=== PATIENT | male | born 1940 | race Caucasian/White ===

== ENCOUNTER 2018-01-20 09:23 | Day surgery (SDC) | payer MEDICARE, SELFPAY ==
--- NOTE | 2018-01-20 09:45 | HERN_PTH ---
PATIENT: TYE VAZQUEZ LOC: [facility] U#:[id number] AGE/SX: 77/M ROOM: RE01/20/[address]: Dr. Winsotn Sherwood MD : 1940 BED: DIS: 01/20/2018 SPEC #: [id number] RECD: 01/20/18 14:21 STATUS: TANNER MERARY #: [id number] CLAUDIA: 01/20/18 09:[address]: Winston Sherwood DEPT: SURGICAL PATHOLOGY RECD BY: Odalis Jarrell ENTERED: 01/20/18 15:14 SP TYPE: Hernia OTHR DR: Dr. Talon Bolaños MD Tissues: HERNIA Procedures: Surgery Specimen Level II HEADER OPERATION: Open, hernia, inguinal with mesh PRE-OP DIAGNOSIS: Right inguinal hernia TISSUE SUBMITTED: Hernia sac MICROSCOPIC DIAGNOSIS Right inguinal hernia, herniorrhaphy: Hernia sac with fibrosis and mild chronic inflammation. AM:laurie 4/10/18 MICROSCOPIC DESCRIPTION Slides are reviewed. GROSS DESCRIPTION Received in fixative is one container labeled with the patient's name and designated hernia sac. The specimen consists of an irregular piece of wood soft tissue measuring 5.5 x 1.5 x 0.3 cm. No mass lesion is identified. Adult Remedial Education Instructor sections are submitted in one cassette. / SJ:rg 01/20/18 TC:5 CPT: 78173
[2018-01-20 09:49] VITALS: BP 158/92; PULSE 61; RESP 16; TEMP 36.4; O2SAT 96; BMI 25.2
[2018-01-20] MEDS: Cefazolin 2 GM in 0.9% Normal Saline 100 ML IV (10:15)
[2018-01-20] MEDS: Bupivacaine Mpf 0.5% 30 ML VIAL (11:26)
--- NOTE | 2018-01-20 11:34 | PCM.DC.HER ---
Discharge Diet: Light diet - advance as tolerated Discharge Activity: Return to Normal Activity, May Drive - when you are no longer taking narcotic pain medications., May Shower - with the bandage in place 1-2 days after surgery. Lifting Restrictions: 20 pounds for 8 weeks. Additional Activity Instructions:: Climbing stairs is fine, walking is encouraged. Sitting in bed may be uncomfortable. Sitting up using your lateral muscles (sitting up sideways) is usually more comfortable. Do not drive, work heavy equipment of sign legal documents for 24 hours. If your hernia repair was an ingunial repair, you may have scrotal swelling, an ice pack and/or athletic support can provide more comfort. Pain medications may cause nausea, you should typically eat light foods as you take your pain medications. Pain medications may also cause constipation. If you have difficulty with this, discuss with your doctor. Call your doctor if your incision/area has: Continuous Slow Oozing, Sudden Increased Bleeding, Increased Pain/ Swelling, Increased Redness, Foul Smelling Discharge Call your doctor if you observe: Fever of 101 or Higher Suture Line Care: Avoid Pulling/Pushing, Avoid Pinching/Bending Additional Dressing/Incision Instructions:: Leave the operative bandage on for 2-3 days. When you remove the bandage, leave the steri-strips on place until your follow up appointment or they fall off. Allergies/Adverse Reactions: Allergies No Known Allergies Allergy (Verified 01/20/18 10:08) Medications to take at Discharge Amlodipine [Norvasc] 10 mg PO DAILY 05/13/17 Aspirin [Aspirin, Baby] 81 mg PO DAILY@0800 05/13/17 Atorvastatin Calcium [Lipitor] 10 mg PO QHS 05/13/17 Cyclobenzaprine [Flexeril] 5 mg PO BID PRN 05/13/17 Lisinopril 20 mg PO QHS 05/13/17 Lisinopril/Hydrochlorothiazide [Zestoretic 20/12.5 Tablet] 1 tab PO DAILY 05/13/17 Omeprazole 20 mg PO DAILY 05/13/17 traMADol [Ultram] 50 mg PO DAILY PRN 05/13/17 Metoprolol Tartrate [Lopressor (beta seda)] 50 mg PO BID #60 tablet 05/14/17 Potassium Chloride 20 meq PO DAILY #60 tablet.er 05/14/17 Vancomcyin 125 MG/ 5 ML Susp [Vancomycin 125mg/5mL Susp] 125 mg PO Q6 #200 ml 05/14/17 Oxycodone [Oxyir] 5 mg PO Q4H PRN PRN 7 Days #14 tab 01/20/18 The following prescriptions were given: Oxycodone [Oxyir] 5 mg PO Q4H PRN PRN 7 Days #14 tab PRN Reason: Pain Primary Care Physician: Talon Bolaños MD [Primary Care Provider] - Please Follow Up With: Winston Sherwood MD - [phone] When: Plan to have a follow up appointment in 7 days. Call to schedule.
--- NOTE | 2018-01-20 11:34 | PCM.OPRPT ---
Report of Operation Date of Procedure: 01/20/18 Pre-Operative Diagnosis: right inguinal hernia Post-Operative Diagnosis: right inguinal hernia - indirect Surgery/Procedure Performed:: right inguinal hernia repair with medium mesh plug sustainability specialist: None Type of Anesthesia:: MAC Anesthesiologist: Srini Maldonado - ASA2 Specimen's removed: hernia sac Estimated Blood Loss (mL): 15 Fluids Replaced: 800 Description of Procedure: The patient was brought to the operating suite. Sign in was performed verifying patient, site, procedure, position, and DVT prophylaxis with SCDs. Patient received 2 g Ancef antibiotic prophylaxis. Following induction of IV sedation, the patients right inguinal region was prepped and draped in the usual fashion. Timeout was performed verifying patient, site, position. Local anesthetic was injected at the site of the anterior superior iliac spine for a regional block. The 50-50 mixture of lidocaine and Marcaine was then injected along the planned course of the skin incision. A linear incision was made and dissection carried down to the external oblique aponeurosis. Traversing veins ligated with 3-0 Vicryl ties and divided. Local anesthetic was then injected into the inguinal canal. A clean scalpel blade was used to open the lower canal in the direction of the fibers and a Metzenbaum scissor was used to further dissect and open the canal. Care was taken to avoid injury to the ilioinguinal nerve. Following this, the spermatic cord was surrounded at the level of the pubic tubercle and brought up in the operative field with a Paco drain. Dissection was continued up to the internal ring clearing the cremasteric fibers. The patient was noted to have no direct inguinal hernia. Dissection of the cord was undertaken which demonstrated an indirect inguinal hernia with a relatively small hernia sac. The hernia sac was opened. There was no sliding component. Ligation of the hernia sac was undertaken. A medium Bard PerFix mesh plug was then placed into the internal ring and secured with interrupted 0 Prolene sutures. The mesh was secured using a Bard keyhole shaped mesh secured at the level of the pubic tubercle and run to the ilioinguinal ligament inferiorly using an 0 Prolene suture. Next an 0 Prolene suture was used to secure the mesh to the transversus arch. The tails of the mesh were placed around the spermatic cord to create a new internal ring and the tails closed with a running 0 Prolene suture. The spermatic cord and the ilioinguinal nerve returned to its anatomic position. The external oblique was closed with a running 3-0 Vicryl suture. Subcutaneous fat was closed with interrupted 3-0 Vicryl suture. Skin was closed with a running 4-0 Monocryl subcuticular sutures. Steri-Strips and bandages were applied. The patient was brought to recovery room in stable condition. Grafts/Implants Used: bard perfix medium plug patch [id number] ref [id number] exp 09/10/2022 - Admit VTE Documentation VTE Present on Admission: No VTE Mechan Device Prophylaxis: SCD's
[2018-01-20 11:37] VITALS: BP 123/75; BP 158/92; PULSE 53; RESP 16; TEMP 36.2; O2SAT 93
[2018-01-20 11:45] VITALS: BP 137/70; BP 158/92; PULSE 52; RESP 16; O2SAT 93
[2018-01-20 11:50] VITALS: BP 134/74; BP 158/92; PULSE 51; RESP 16; O2SAT 94
[2018-01-20 12:11] VITALS: BP 129/72; BP 158/92; PULSE 53; RESP 16; TEMP 36.1; O2SAT 93
[2018-01-20 12:48] VITALS: BP 158/92
== END 2018-01-20 13:07 | disposition home or self-care (01) ==
LOC: SDC 09:23 → AC 09:28
PROVIDERS: Family Provider Internal Medicine; PCP Internal Medicine; Visit Provider Surgery
PROC: (CPT 49505; principal; 2018-01-20 09:30)
DX: K40.90 Unilateral inguinal hernia, without obstruction or gangrene, not specified as recurrent (principal); M51.36 Other intervertebral disc degeneration, lumbar region; K21.9 Gastro-esophageal reflux disease without esophagitis; I10 Essential (primary) hypertension; E78.2 Mixed hyperlipidemia; Z87.19 Personal history of other diseases of the digestive system; Z85.46 Personal history of malignant neoplasm of prostate; Z79.82 Long term (current) use of aspirin; Z79.899 Other long term (current) drug therapy; F17.210 Nicotine dependence, cigarettes, uncomplicated
CPT/HCPCS: 49505; 88302; J7120; A4216; C1781

== ENCOUNTER 2018-04-28 10:00 | Outpatient (RCR) | payer MEDICARE, SELFPAY ==
--- NOTE | 2018-04-01 12:58 | HP.PTEVAL_ITS ---
Patient's Visit Information TYE VAZQUEZ is a 78 year old M referred to Physical Therapy by Out of Town Doctor with a diagnosis of Lumbar back pain with radiculopathy. Date of Evaluation: 04/01/18 Physical Therapist: Shawn Harley PT, - Visit Plan Frequency: 2x /Week Duration: 4 Weeks Plan: Start flexion based stretching, LE flexibility, progressive core strengthening starting in gravity reduced positions. Try manual traction. Modalities prn. - Subjective Subjective: Pt is a 78 y/o male referred for lumbar back pain with radiculopathy. Pt reports a long history of low back pain. He feels like his symptoms have worsened since he had a hernia repair on 01/20/18. Since then, he has had worsening R radicular symptoms. He has been using a SPC for the past three weeks. He describes is symptoms as a constant painful numbness from the lateral R knee to his toes. When he stands he immediately has increasing numbness and he notes posterior R thigh pain also. Sitting relieves his symptoms slightly. He had director critical care recently with no improvement. He had previous PT and injection last summer with no improvement. Denies surgical history to lumbar spine. He denies recent falls/trauma, weakness, and b/b incontinence. Aggrevating factors: standing, walking. Easing factors: sitting , rest. 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 - Pain low back Pain Intensity (Out of 10): 7 Pain Intensity Range: 10 R radicular Pain Intensity (Out of 10): 7 Pain Intensity Range: 10 - Objective OBSERVATION: sitting without distress, notable atrophy R LE in quadriceps and gastroc muscle bellies. GAIT: amb with SPC in L UE, R LE antalgic, decreased hip extension with terminal stance. NEURO: dermatomes diminished L3-SI R LE. Myotome impaired R L5 level. Unable to elicit R LE DTRs, L L3 DTR 2+. ROM: Lumbar flexion 75%, extension 50%, B LF 75%. R hip PROM WFL, L hip PROM mod impairment. STRENGTH: Gross R LE 4-/5, L LE 4+/5. FLEXIBILITY: Severe tightness B hamstrings. - Special Tests L/S Left Straight Leg Raise: Negative L/S Right Straight Leg Raise: Positive - Goals Goal 1:: Pt will report 25% improvement in function in the BENY. Goal Time Frame: 4-6 Weeks Goal 2:: Pt will report ability to ambulate 5 minutes without prescence of radicular symptoms. Goal Time Frame: 4-6 Weeks Goal 3:: Pt will demonstrate gross B LE strength of 4+/5 to improve strength with transfers. Goal Time Frame: 4-6 Weeks Goal 4:: Pt will be independent with HEP to sustain gains made in the clinic. Goal Time Frame: 4-6 Weeks - Rehabilitation Potential Physical Therapy Diagnosis: pt is a 78 y/o male with referral of lumbar back pain with radiculopathy. This has been worsening since a hernia repair in January of this year. He notes wornsening R LE radicular symptoms and weight bearing tolerance. Radicular symptoms appear to be following the L5 dermatome and he does exhibit myotomal weakness of this level as well. Due to his history of hernia surgery and immobility post-op, he likely has underlying trunk control impairment. He has activity restrictions that include decreased ambulation distance, standing tolerance, and difficulty sleeping. This affects his participation with work related tasks. His prognosis is fair for an ideal outcome based on his chronicity of symptoms and myotomal weakness. Pt would benefit from skilled PT to maximize function. Rehabilitation Potential: Fair - Anticipated Interventions Patient/Client Instruction: Educate patient on: Condition, Plan of Care For the Purpose of:: To decrease pain, To increase ROM, To improve muscle performance and motor function, To increase tolerance to activity/condition/ position, To improve ability of physical actions for home/community/work/leisure , To improve gait and locomotor functions, To reduce risk of recurrence, To improve self management Therapeutic Exercise to Include: Strength training, Endurance training, Balance training, Body mechanics, Postural training, Flexibilty training, Gait and locomotor training, Active ROM, Dynamic Lumbar Stabilization For the Purpose of:: To decrease pain, To increase ROM, To improve muscle performance and motor function, To improve ability to perform ADL's, To increase tolerance to activity/condition/position, To improve ability of physical actions for home/community/work/leisure, To improve gait and locomotor functions, To decrease soft tissue restriction, To increase flexibility/ROM, To improve endurance, To improve balance, To improve safety with gait, To improve self management TENS: Yes IF ES: Yes Other electric stimulation: Yes Cryotherapy (ice pack, ice massage): Yes Thermo therapy (hot pack): Yes Ultrasound (thermal/non thermal): Yes Pelvic traction supine: Yes For the Purpose of:: To decrease pain, To increase ROM, To improve muscle performance and motor function, To increase tolerance to activity/condition/ position, To improve ability of physical actions for home/community/work/leisure , To increase flexibility/ROM, To improve endurance Thank you for the opportunity to evaluate your patient. For Medicare and Medicare HMO plans, please review the plan of care and approve it. It will need to be FAXED BACK to us at [phone] for Medicare purposes. Please let me know if there are questions or concerns regarding this plan of care. Physician Signature: Date:
--- NOTE | 2018-04-28 10:29 | HP.PTDCSUM_ITS ---
HP - PT D/C Summary It has been my pleasure to treat TYE VAZQUEZ under orders from Out of Town Doctor, for the diagnosis of Lumbar back pain with radiculopathy for a total of 9 visit(s). Discharge Date: 04/28/18 Please see the following information for a summary of their discharge status. - Subjective Subjective: Doing about same. Pain is located in right lateral calf and foot. These symptoms impair walking and standing affects ADL'S - Pain low back Pain Intensity (Out of 10): 5 R radicular Pain Intensity (Out of 10): 5 - Overall Improvement % Improvement: 25 - Objective Objective/Function: POSTURE: mild foward posture. GAIT: ambulates with mild foward posture ,cane decrease stance time right leg. NEURO: C/O parathesia/ tingling right leg .reflexes diminshed. MMT: quads/hams 4-/5,hip flexion 3+/5 pain on right. LUMBAR ROM: flexion mod loss pain ,extension min loss - Goals Goal 1:: Pt will report 25% improvement in function in the BENY. Goal Progress: Progressing Goal 2:: Pt will report ability to ambulate 5 minutes without prescence of radicular symptoms. Goal Progress: Progressing Goal 3:: Pt will demonstrate gross B LE strength of 4+/5 to improve strength with transfers. Goal Progress: Progressing Goal 4:: Pt will be independent with HEP to sustain gains made in the clinic. Goal Progress: Progressing - Plan Plan: D/C recommend MRI - D/C Information Discharge Comments: RTD ..RECOMMEND MRI If there are questions or concerns regarding this patient's physical therapy, please feel free to call me at [phone]. Thank you for the referral of this patient. Sincerely, Shawn Harley, PT,
== END 2018-04-28 19:00 | disposition home or self-care (01) ==
LOC: PT 10:00
PROVIDERS: Family Provider Internal Medicine; PCP Internal Medicine
DX: M54.17 Radiculopathy, lumbosacral region (principal)
CPT/HCPCS: 97014; 97035; 97110; 97163; 97530; G0283

== ENCOUNTER 2019-05-29 22:38 | Emergency (ER) | payer MEDICARE, SELFPAY ==
[2019-05-29 22:39] VITALS: BP 155/81; PULSE 79; RESP 19; TEMP 36.5; O2SAT 94; BMI 24.3
--- NOTE | 2019-05-29 23:10 | RAD_ITS ---
HISTORY: MULTIPLE PUNCTURE WOUNDS TO 1ST AND 2ND DIGITS AND 1ST METACARPAL AREA FROM DOG BITE ADDITIONAL HISTORY: None provided. COMPARISON: None TECHNIQUE: Right hand 3 views Number of images including paperwork: 3 FINDINGS: BONES: No acute fracture. Mineralization appears decreased. JOINTS: Moderate radial carpal joint space narrowing. Mild widening of the scapholunate interval measuring 3 mm. Severe degenerative changes are present, most evident involving the first through third MCP joints and DIP joints. Chondrocalcinosis. SOFT TISSUES: No distinct foreign body. Soft tissue swelling. RAD/Hand Min 3 Views IMPRESSION: Degenerative changes without acute osseous abnormality. Soft tissue swelling. at 2338 Reported and signed by: Mahnaz Colvin MD Electronically Signed: Mahnaz Colvin MD at 23:38 EDT Tel , Service support ,
--- NOTE | 2019-05-29 23:10 | ED.DCSUM_ITS ---
- ER Visit Summary Date of Service: 05/29/19 Chief Complaint: Dog bite History of Present Illness: The patient is a 79 M who presents with a dog bite to his right hand that occurred tonight. Patient states that it was his own dog who bit him. Patient states the dog's immunizations are up-to-date. Patient denies any paresthesias or weakness. Patient states the pain is throbbing. Patient states pain is over the right thumb and index finger and in the first webspace. Patient states his tetanus is up-to-date. Patient denies any nausea or vomiting. Physical Examination: Vital signs are stable. Patient is afebrile. Patient is in no acute distress. Skin is warm and dry. There is a 2 cm full-thickness laceration on the volar aspect of the base of the right index finger. There is moderate gapping of the wound margins here. There are puncture wounds over the proximal phalanx of the right index finger. There are superficial lacerations in the first webspace. There are abrasions over the right thumb. There is no active bleeding noted. There are no foreign bodies noted. Range of motion was limited in flexion of the MP and IP joints of the right thumb as well as the MP, PIP, and DIP joints of the right index finger secondary to pain. Sensation was intact to light touch in all digits. Capillary refill is less than 2 seconds in all digits. Test Results: X-rays of the right hand were obtained. There is no acute fracture. There is no foreign body. These were interpreted by the radiologist and myself. Emergency Department Course and Treatment: The wounds were cleaned and irrigated with copious amounts normal saline. The wounds were anesthetized 1% plain lidocaine locally. The laceration on the volar aspect of the base of the right index finger was closed with 2 simple interrupted #4-0 nylon sutures loosely. The laceration in the webspace was closed with 2 simple erupted #4-0 nylon sutures loosely. Bacitracin dressing was applied. Patient was given a prescription for Augmentin. Patient was instructed to follow-up with his primary care physician in 5 to 7 days for wound recheck and suture removal. Patient understood and was agreeable with the plan. All questions were answe red. Disposition: Discharge home Impression: Dog bite right hand This note was generated with [employer] dictation software. It may contain incorrect words, spelling, and punctuation that were not noted in review of the chart prior to signing ED Disposition - Plan for ED Patient: Disposition: Home or Assisted Living Diagnosis: Dog bite of right hand Instructions: Dog Bite, LACERATION, Hand Referrals: Talon Bolaños MD [Primary Care Provider] - 5 Days for suture removal
[2019-05-30 00:24] VITALS: RESP 18
[2019-05-30] MEDS: BACITRACIN 15 GM Tube 1 APPLIC TOPICAL (00:24)
== END 2019-05-30 00:25 | disposition home or self-care (01) ==
PROVIDERS: Emergency Provider Emergency Medicine; Family Provider Internal Medicine; PCP Internal Medicine
DX: S61.210A Laceration without foreign body of right index finger without damage to nail, initial encounter (principal); S61.411A Laceration without foreign body of right hand, initial encounter; S60.311A Abrasion of right thumb, initial encounter; W54.0XXA Bitten by dog, initial encounter; Y93.9 Activity, unspecified; Z72.0 Tobacco use; I10 Essential (primary) hypertension; K21.9 Gastro-esophageal reflux disease without esophagitis; Z79.82 Long term (current) use of aspirin; Z79.899 Other long term (current) drug therapy
CPT/HCPCS: 12002; 73130; 99283

== ENCOUNTER 2020-03-07 11:16 | Emergency (ER) | payer MEDICARE, SELFPAY ==
[2020-03-07 11:17] VITALS: BP 170/98; PULSE 82; RESP 16; TEMP 36.4; O2SAT 92; BMI 25.4
--- NOTE | 2020-03-07 11:27 | VDLE_ITS ---
Reason For Study: SWELLING RIGHT GSV is normal. CFV is compressible, spontaneous, phasic, competent and demonstrates normal augmentation. FV is compressible, spontaneous, phasic, competent and demonstrates normal augmentation. POP V is compressible, spontaneous, phasic, competent and demonstrates normal augmentation. T/P Trunk is compressible. PTV is compressible. RT PerV is compressible. There is a heterogenous, nonvascularized structure noted in the popliteal space extending posteriorly to proximal/mid calf. The structure measures 3.2 x 1.1 cm at its origin. Interpretation Summary Deep veins of the right lower extremity are patent and compressible segmentally. There is no evidence of right lower extremity deep vein thrombosis. Valvular competence appears intact within the proximal deep venous system on the right . The right great saphenous vein appears patent and compressible segmentally. A non-vascular, heterogeneous structure is noted in the right popliteal space and right proximal/mid-calf. This may represent a popliteal cyst. Clinical correlation is advised. Ordering Physician: Samanta Cedeno Referring Physician: CHARITY KATZ Performed By: Genesis Dowling, MARYCS, RVT
--- NOTE | 2020-03-07 11:27 | ED.VIS.GEN ---
History of Present Illness Chief Complaint: Lower Extremity Injury Detail of Chief Complaint: Right lower extremity swelling Informant: Patient Onset: Days - 6 days Context: Gradual Onset Current Severity: Mild Maximum Severity: Moderate Narrative: Patient presents with right lower extremity swelling and pain for the past 6 days. He denies any known injury. He states swelling is better after elevating his feet at night. He has no history of blood clots. He denies chest pain or shortness of breath. Per his medication list he is on aspirin and Plavix. - Past Medical History (1) Hypertension Status: Chronic (2) IBS (irritable bowel syndrome) Status: Chronic (3) Sciatica Status: Chronic (4) Prostate cancer Status: Chronic (5) Sciatic nerve disease Status: Chronic Past Medical History - Allergies and Home Meds Allergies/Adverse Reactions: Allergies No Known Allergies Allergy (Verified 03/07/20 11:17) Primary Care Physician: Talon Bolaños MD [Primary Care Provider] - Prior records reviewed: Yes Surgical History: - - reports 2 colonoscopies int he past, hernia repair, shoulder surgery. Smoking Status: Current some day smoker - Family History Maternal Family History: Family History (Last Reviewed 03/06/18 @ 12:19 by Millie Jacques) Other Arthritis Cancer Hypertension Myocardial infarction Family History: Reports: Diabetes, - - strokes Paternal Family History: Family History (Last Reviewed 03/06/18 @ 12:19 by Millie Jacques) Other Arthritis Cancer Hypertension Myocardial infarction Family History: Reports: - - leukemia Review of Systems General: Denies: Chills, Fever Eyes: Denies: Visual changes - bilaterally ENT: Denies: Bilateral ear pain Cardiovascular: Denies: Chest pain Respiratory: Denies: Dyspnea, Cough Gastrointestinal: Denies: Abdominal pain, Nausea, Vomiting, Diarrhea Genitourinary: Denies: Dysuria Musculoskeletal: Reports: Swelling, Extremity Pain Skin: Denies: Rash Neurological: Denies: Headache Hematologic: Denies: Easy bruising, Easy bleeding Allergy: Denies: Uticaria Physical Exam Vital Signs/Narrative: Vital Signs Temp Pulse Resp BP Pulse Ox 03/07/20 11:17 97.6 F L 82 16 170/98 H 92 Inital Vital Signs reviewed: Yes General: Well nourished, Well developed Head: Normocephalic ENT: Moist mucous membranes Neck: Supple Cardiovascular: Regular rate, Regular rhythm Respiratory: No distress, CTA bilaterally Abdomen: Soft, Nontender Extremities: - - 2-3+ edema right lower leg. He does have dependent ecchymosis around his calcaneus. He has no bony tenderness. Neurological: Alert, Oriented x3, Normal Strength, Normal Sensation Psychological: Normal affect Diagnostic/Tx/Re-eval Venous ultrasound of the right lower extremity does not reveal evidence of DVT - Medical Decision Making Patient was given 1 tab of [place] here while awaiting test results. Kapil wrap was applied to the leg to provide light compression. We discussed his test results and he will follow-up with orthopedics as needed. ED Disposition - Plan for ED Patient: Disposition: Home or Assisted Living Diagnosis: Bakers cyst Instructions: ED Cyst [place] Referrals: Jac Eng MD [STAFF PHYSICIAN] - As Needed
[2020-03-07] MEDS: HYDROcodone Bitartrate/Apap 5/325 Tablet PO (11:31)
[2020-03-07 14:32] VITALS: BP 177/91; PULSE 73; RESP 16
--- OUTSIDE RECORDS SUMMARY | 2020-07-26 16:43 | XMS RPT_ITS | CCD ---
:1940 External Reference #:[id number] Author Organization [facility] Care Team Providers Name Role Phone Jorge L Salazar Unavailable Chance PARR Unavailable Thang Bolaños Primary Care Provider Medications Medication Name Sig Date Prescriber Location acetaminophen / TYLENOL PM EXTRA 05-22-2018 [facility] diphenhydrAMINE STRENGTH 500-25 MG Orthop aedic TABS 1-2 tablets Center - every 6 hours as Orthopaedic needed for pain Surgeons Cli jennie ([id number]) DIPHENHYDRAMINE-APA P (SLEEP) [id number] Dieter Malone Vazquez amLODIPine amLODIPine 11-19-2019 Talon Desir [facility] ([facility]) 10 mg Bolaños Orthopaedic tablet Indications: Center - Essential Orthopaedic hypertension Take 1 [facility] tablet by mouth ([id number]) once daily. 90 tablet 3 11/19/2019 Active AMLODIPINE BESYLATE 10 MG TABS 1 03-24-2018 [facility] - tablet daily AMLODIPINE [facility] ([id number]) BESYLATE [id number] Dinorah Conley ADULT SPECIALIST-CERTIFIED SHORTHAND REPORTER Comment: Take 1 tablet by mouth once daily. aspirin ASPIRIN LOW DOSE 81 MG ORAL 03-24-2018 [facility] Orthopaedic TABLET 1 tablet daily Center - Orthopaedic Surgeons ASPIRIN [phone] Dinorah Coats [facility] ([id number]) Yael [facility] aspirin, enteric coated (ASPIRIN, Ccf Provider [facility] - ENTERIC COATED) 81 mg EC tablet Orthopaedic [facility] ([id number]) Take 81 mg by mouth once daily. 0 Active Comment: Take 81 mg by mouth once prakash ly. atorvastatin atorvastatin (LIPITOR) 11-19-2019 Talon Bolaños [facility] 10 mg tablet [address] - Indications: Mixed Orthopaed ic Surgeons hyperlipidemia Take 1 Clinic ([id number]) tablet by mouth once daily. 90 tablet 3 11/19/2019 Active ATORVASTATIN CALCIUM 10 MG TABS 1 03-24-2018 [facility] Orthopaedic [place] - tablet daily ATORVASTATIN Orthopaedic Surgeons [facility] (71316) CALCIUM [phone] Dinorah Coats [place] ADULT SPECIALIST-[facility] Comment: Take 1 tablet by mouth once daily. CORAL CALCIUM CAPS CORAL CALCIUM CAPS 1 03-24-2018 [facility] tablet daily Orthopaedic [facility] - CALCIUM CAPS Orthopaedic [phone] Dinorah Surgeon s [facility] ([id number]) CORAL CALCIUM CAPS CORAL CALCIUM CAPS 1 03-24-2018 [facility] tablet daily Orthopaedic [facility] - CALCIUM CAPS Orthopaedic [phone] Dinorah [facility] (47296) cyclobenzaprine CYCLOBENZAPRINE HCL 03-24-2018 [facility] 10 MG TABS 1 tablet Orthopae dic twice a day Center - Orthopaedic CYCLOBENZAPRINE HCL [facility] [phone] Dniorah Coats (37430) [place] ADULT SPECIALIST-[facility] diclofenac DICLOFENAC SODIUM 75 03-24-2018 [facility] MG TBEC 1 tablet Orthopaedic twice daily Center - DICLOFENAC Orthop aedic SODIUM [phone] Surgeons [facility] Dinorah [facility] ([id number]) [facility] gabapentin gabapentin 10-06-2019 - [facility] (NEURONTIN) 300 mg 12-13-2020 Miky Orthopaed ic capsule Indications: Center - DDD (degenerative Orthopaedi c disc disease), lumbar Surgeo ns Clinic Take 2 capsules by ([id number]) mouth daily at bedtime for 180 days. 60 capsule 2 06/16/2020 12/13/2020 Active GABAPENTIN 300 MG CAPS one tablet at 05-22-2018 [facility] Orthopaedic Center - night GABAPENTIN Orth opaedic Surgeons [facility] ([id number]) [phone] Dieter Vazquez DO Comment: Take 2 capsules by mouth prakash ly at bedtime for 180 days. hydroCHLOROthiazide / LISINOPRIL-HYDROCHLOROTHIAZIDE 03-24-2018 [facility] lisinopril 20-12.5 MG TABS 1 tablet daily Clinic Orthopaedic LISINOPRIL-HYDROCHLOROTHIAZIDE [place] - [phone] Dinorah Coats [facility] ([id number]) lisinopril lisinopril (ZESTRIL, PRINIVIL) 11-19-2019 Talon Desir [facility] 40 mg tablet Indications: [facility] Cl inic Essential hypertension Take 1 Orthopaedic tablet by mouth once daily. 90 Center - tablet 3 11/19/2019 Active O r[facility]opaedic [facility] ([id number]) LISINOPRIL 20 MG TABS 1 tablet daily 03-24-2018 [facility] - LISINOPRIL [phone] [facility] ([id number]) Dinorah Coats [facility] Comment: Take 1 tablet by mouth once daily. methylprednisoLONE MEDROL 4 MG TBPK Take by 03-24-2018 Dinorah Coats [facility] mouth daily [facility] directed [facility] - METHYLPREDNISOLONE Orthopaed ic [phone] Dinorah Coats [facility] (48502) metoprolol metoprolol tartrate, 11-19-2019 Talon Desir [facility] short acting, Bolaños [facility] (LOPRESSOR) [address] - Indications: Essential Ortho paedic hypertension Take 1 [facility] tablet by mouth twice (59168 ) daily. 180 tablet 3 11/19/2019 Active METOPROLOL TARTRATE 50 MG TABS 1 03-24-2018 [facility] - tablet [facility] (31697) METOPROLOL TARTRATE [phone] Dinorah Coats [facility] Comment: Take 1 tablet by mouth twice daily. omeprazole omeprazole (PRILOSEC) 20 11-19-2019 Talon Waltersasqu ez [facility] mg capsule Indications: Orth [facility] - Gastroesophageal reflux [facility] disease, esophagitis Clinic (10365) presence not specified Take 1 capsule by mouth once daily. 90 capsule 3 11/19/2019 Active OMEPRAZOLE 20 MG CPDR 1 tablet daily 03-24-2018 [facility] - OMEPRAZOLE [phone] Orthopaedic Surgeons [facility] (61563) Dinorah Coats [facility] Comment: Take 1 capsule by mouth once daily. oxyCODONE OXYCODONE HCL 5 MG 06-26-2018 - [place] [facility] CAPS [facility] every 6 hours as ADULT SPECIALIST-CERTIFIED SHORTHAND REPORTER - Orthopaed ic needed Surgeons C linic ([id number]) OXYCODONE HCL [phone] [place] Chance ADULT SPECIALIST-CERTIFIED SHORTHAND REPORTER potassium POTASSIUM CHLORIDE 03-24-2018 [facility] chloride 20 MEQ PACK 1 Orthopaedic Ce nter tablet daily - Orthopaedic Surgeons [facility] POTASSIUM CHLORIDE (09948) [phone] Dinorah Conley ADULT SPECIALIST-[facility] POTASSIUM CHLORIDE 20 MEQ PACK 1 03-24-2018 [facility] Orthopaedic Center - tablet daily POTASSIUM Orthopaedic Surgeons [facility] (85763) CHLORIDE [phone] Dinorah Conley ADULT SPECIALIST-[facility] traMADol TRAMADOL HCL 50 MG TABS 1 03-24-2018 Cr ystal [facility] Orthopaedic tablet every 8 hours as needed Center - Orthopaedic TRAMADOL HCL [facility] (36077) [phone] Dinorah Conley ADULT SPECIALIST-[facility] triamcinolone TRIAMCINOLONE ACETONIDE 0.5 % 03-24-2018 [facility] Orthopaedic CREA apply to skin twice daily Center - Orthopaedic TRIAMCINOLONE [facility] (86881) ACETONIDE [phone] Dinorah Conley ADULT SPECIALIST-[facility] Problems Active Problems Category Problem Name Status Date Location Cancer of prostate Malignant tumor of Active [facility] prostate (96526) Disorders of lipid Mixed hyperlipidemia Active 09-02-2006 - [facility] metabolism (32474) Esophageal disorders Gastroesophageal reflux Active - [facility] disease (25204) Essential hypertension Essential hypertension Active 10-16-19 16 - [facility] (90828) Other aftercare Surgical follow-up Active 06-26-[facility] - [facility]opaedic [facility] (49140) Peripheral and visceral Peripheral vascular Active 07-22-2019 - [facility] atherosclerosis disease (03251) Residual codes; Tobacco user Active 05-23-2010 - [facility] inic unclassified (01771) Spondylosis; Low back pain Active 11-07-2016 - [facility] intervertebral disc Orthopae dic Center disorders; other back - Orth opaedic problems [facility] (64249) Past or Other Problems Category Problem Name Status Date Location Other and unspecified Benign neoplasm of Completed 05-15-2010 - [facility] benign neoplasm rectum and anal (61654) canal Residual codes; Insomnia Completed 09-22-2019 - [facility] inic unclassified (35514) Unclassified Problem [facility]opa[facility] [address] [facility] - Orthopaedic [facility] ([id number]) Results Result Name Value Range Unit Interpretation Flag Date Location obsolete on 2020-06 OBSOLETE Refill (INTMWS) Normal 06-16-2020 [facility] TYE VAZQUEZ ([id number]) 1940 [facility] Time Provider Department ([id number]) 06/16/20 TALON BOLAÑOS INTBROOKE During your visit today, we recorded the following informati on about you: Chasity Abebe 06/16/2020 12:27 PM Signed Patient has been identified by name and date of : Yes Pending Prescriptions Disp Refills GABAPENTIN 300 MG CAPSULE 60 capsule 5 Sig: Take 2 capsules by mouth daily at bedtime for 180 days. 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 Patient requesting a call when RX is juan roved and sent to the pharmacy. Please call patient at: cell Chasity Molina LPN 06/16/2020 3:05 PM Signed Patient has been identified by name and date of : Yes Patient phones for refill(s): Pending Prescriptions Disp Refills GABAPENTIN 300 MG CAPSULE 60 capsule 0 Sig: Take 2 capsules by mouth daily at bedtime for 180 days. SAY: No Date of last office visit in primary care: 03/08/2020 No future appt scheduled. Liv Bolaños MD 06/16/2020 3:47 PM Signed Patient's request for medication is as follows Signed Prescriptions Disp Refills gabapentin (NEURONTIN) 300 mg capsule 60 capsule 2 Sig: Take 2 capsules by mouth daily at bedtime for 180 days. SAY: No Authorizing Provider: TALON BOLAÑOS Annual Medicare Wellness: with Precious in 1 month. Follow up with me in 3 months. Talon Bolaños MD Allergies As of Date: 06/16/2020 (No Known Allergies) Date Reviewed: 04/01/2020 Reviewed by: Carline Pollock (Full Stack Software Developer Instruments Sales Representative) Lu - Fully Assessed Reason for Visit: Refill Request [94] Visit Diagnosis:DDD (degenerative disc disease), lumbar [M51 .36] Order(s):gabapentin (NEURONTIN) 300 mg capsuleTake 2 c apsules by mouth daily at bedtime for 180 days.Disp: 60 capsuleRfl: 2 Prescriptions as of 06/16/2020 Sig: GABAPENTIN 300 MG CAPSULE Take 2 capsules by mouth dana* AMLODIPINE 10 MG TABLET Take 1 tablet by mouth once d* METOPROLOL TARTRATE 50 MG TAB* Take 1 tablet by mouth twice * OMEPRAZOLE 20 MG CAPSULE,ROCK* Take 1 capsule by mouth once * ATORVASTATIN 10 MG TABLET Take 1 tablet by mouth once d* LISINOPRIL 40 MG TABLET Take 1 tablet by mouth once d* ASPIRIN 81 MG TABLET,DELAYED * Take 81 mg by mouth once dana * Problem List As Of Date 06/16/2020 Noted Resolved Dermatophytosis of foot [B35.3] 11/27/2005 06/14/2017 Esophageal reflux [K21.9] 08/29/2006 More... HYPERTENSION NOS [I10] 09/02/2006 03/29/2014 More... Mixed hyperlipidemia [E78.2] 09/02/2006 More... Ganglion of tendon sheath [M67.40] 03/19/2007 11/07/2016 Unspecified disorder of prostate [N42.9] 06/21/2007 09/06/20 14 Inguinal hernia without mention of obstruction *10/11/2008 0 11/07/2016 Umbilical hernia without mention of obstruction*10/11/2008 0 11/07/2016 Rotator cuff (capsule) sprain [S43.429A] 09/20/2009 11/07/19 17 Malignant neoplasm of prostate (HCC) [C61] 02/07/20102016 More... Benign neoplasm of rectum and anal canal [D12.8*05/15/2010 More... Tobacco use disorder [F17.200] 05/23/2010 More... Frequency of urination [R35.0] 10/02/2010 11/07/2016 Prostate cancer [C61] More... Diarrhea [R19.7] 12/05/2010 09/06/2014 Inguinal neuralgia [M79.2] 03/12/2013 11/07/2016 Rotator cuff impingement syndrome of right shou*04/10/2015 0 11/19/2019 Medicare annual wellness visit, subsequent [Z00*04/10/2015 0 06/20/2018 Right-sided low back pain with right-sided scia*10/03/2015 0 05/15/2016 Essential hypertension [I10] 10/16/2015 More... DDD (degenerative disc disease), lumbar [M51.36]11/07/2016 More... Clostridium difficile colitis [A04.72] 05/14/2017 06/20/2018 Inguinal hernia [K40.90] 01/20/2018 06/20/2018 More... Traumatic complete tear of left rotator cuff [S*11/03/2018 0 11/19/2019 More... 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 PAD (peripheral artery disease) (HCC) [I73.9] 09/21/2019 Other insomnia [G47.09] 09/22/2019 More... Anemia [D64.9] 09/24/2019 11/19/2019 More... Acute respiratory failure with hypoxia (HCC) [J*09/24/2019 0 11/19/2019 More... Leucocytosis [D72.829] 09/25/2019 11/19/2019 More... Prescriptions ordered this encounter Disp Refills Start End GABAPENTIN 300 MG CAPSULE 60 c* 2 06/16/2020 12/13/2020 Cmt: Patient needs to schedule appt w/PCP. Route: ORAL Sig: Take 2 capsules by mouth daily at bedtime for 180 days. Medications Discontinued During This Encounter Prescriptions - gabapentin (NEURONTIN) 300 mg capsule (Discontinued) Take 2 capsules by mouth daily at bedtime for 180 days. Encounter Status:Closed by PRIYA OLIVIER CMA on 06/17/20 obsolete on 2020-04 OBSOLETE Refill (INTMWS) Normal 05-02-2020 Neno pinky [facility] TYE VAZQUEZ ([id number]) 1940 [facility] Date Time Provider Department ([id number]) 05/02/20 TALON BOLAÑOS INTMWS During your visit today, we recorded the following informati on about you: Whitney Blanchard 05/02/2020 3:25 PM Signed Patient has been identified by name and date of : Yes Pending Prescriptions Disp Refills AMLODIPINE 10 MG TABLET 90 tablet 3 Sig: Take 1 tablet by mouth once daily. SAY: No ATORVASTATIN 10 MG TABLET 90 tablet 3 Sig: Take 1 tablet by mouth once daily. SAY: No LISINOPRIL 40 MG TABLET 90 tablet 3 Sig: Take 1 tablet by mouth once daily. SAY: No OMEPRAZOLE 20 MG CAPSULE,DELAYED RELEASE 90 capsule 3 Sig: Take 1 capsule by mouth once daily. SAY: No RX INSTRUCTIONS: Patient aware RX will be sent to pharmacy. No need to notify patient. Whitney Santo Olivier Cma 05/02/2020 3:35 PM Signed These were sent to [facility] a ye ar supply to [facility] michael 11/19/2019. 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 Allergies As of Date: 05/02/2020 (No Known Allergies) Date Reviewed: 04/01/2020 Reviewed by: Carline Pollock (Full Stack Software Developer Instruments Sales Representative) Lu - Fully Assessed Reason for Visit: Refill Request [94] Visit Diagnoses:Essential hypertension [I10] Mixed hyperlipidemia [E78.2] Gastroesophageal reflux disease, esophagitis presence not specified [K21.9] Prescriptions as of 05/02/2020 Sig: CILOSTAZOL 50 MG TABLET Take 2 tablets by mouth twice* AMLODIPINE 10 MG TABLET Take 1 tablet by mouth once d* METOPROLOL TARTRATE 50 MG TAB* Take 1 tablet by mouth twice * OMEPRAZOLE 20 MG CAPSULE,ROCK* Take 1 capsule by mouth once * ATORVASTATIN 10 MG TABLET Take 1 tablet by mouth once d* LISINOPRIL 40 MG TABLET Take 1 tablet by mouth once d* GABAPENTIN 300 MG CAPSULE Take 2 capsules by mouth dana* ASPIRIN 81 MG TABLET,DELAYED * Take 81 mg by mouth once dana * Problem List As Of Date 05/02/2020 Noted Resolved Dermatophytosis of foot [B35.3] 11/27/2005 06/14/2017 Esophageal reflux [K21.9] 08/29/2006 More... HYPERTENSION NOS [I10] 09/02/2006 03/29/2014 More... Mixed hyperlipidemia [E78.2] 09/02/2006 More... Ganglion of tendon sheath [M67.40] 03/19/2007 11/07/2016 Unspecified disorder of prostate [N42.9] 06/21/2007 09/06/20 14 Inguinal hernia without mention of obstruction *10/11/2008 0 11/07/2016 Umbilical hernia without mention of obstruction*10/11/2008 0 11/07/2016 Rotator cuff (capsule) sprain [S43.429A] 09/20/2009 11/07/19 17 Malignant neoplasm of prostate (HCC) [C61] 02/07/20102016 More... Benign neoplasm of rectum and anal canal [D12.8*05/15/2010 More... Tobacco use disorder [F17.200] 05/23/2010 More... Frequency of urination [R35.0] 10/02/2010 11/07/2016 Prostate cancer [C61] More... Diarrhea [R19.7] 12/05/2010 09/06/2014 Inguinal neuralgia [M79.2] 03/12/2013 11/07/2016 Rotator cuff impingement syndrome of right shou*04/10/2015 0 11/19/2019 Medicare annual wellness visit, subsequent [Z00*04/10/2015 0 06/20/2018 Right-sided low back pain with right-sided scia*10/03/2015 0 05/15/2016 Essential hypertension [I10] 10/16/2015 More... DDD (degenerative disc disease), lumbar [M51.36]11/07/2016 More... Clostridium difficile colitis [A04.72] 05/14/2017 06/20/2018 Inguinal hernia [K40.90] 01/20/2018 06/20/2018 More... Traumatic complete tear of left rotator cuff [S*11/03/2018 0 11/19/2019 More... 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 PAD (peripheral artery disease) (HCC) [I73.9] 09/21/2019 Other insomnia [G47.09] 09/22/2019 More... Anemia [D64.9] 09/24/2019 11/19/2019 More... Acute respiratory failure with hypoxia (HCC) [J*09/24/2019 0 11/19/2019 More... Leucocytosis [D72.829] 09/25/2019 11/19/2019 More... Encounter Status:Closed by PRIYA OLIVIER CMA on 05/02/20 urine culture on 02-04-19 Bacteria Sp. Request/Comment: - Specimen received in preservative Critically 04-01-2020 Lander identified Cx Culture Result - >=100,000 C FU/ml Escherichia coli --> ABNORMAL ALERT abnormal Clinic Nom (U) ORGANISM: Escherichia coli [place] METHOD: Minimum inhibitory concentration([employer]) (51536) Antibiotic Interp NIYA Status Ampicillin RESISTANT >=32 F Gentamicin RESISTANT >=16 F Trimeth sulfameth SUSCEPTIBLE <=20 F Cefazolin SUSCEPTIBLE <=4 F CLSI breakpoints for therapy of uncomplicated UTI's due to E.coli, K.pneumoniae, and P.mirabilis were applied and may be used to predict the activity of oral agents(cefaclor, cefdinir, cefpodoxime, cefp rozil, cefuroxime, cephalexin, loracarbef). Ciprofloxacin RESISTANT >=4 F Nitrofurantoin SUSCEPTIBLE <=16 F Amikacin SUSCEPTIBLE 16 F Tobramycin RESISTANT >=16 F Cefepime SUSCEPTIBLE <=1 F Piperacillin/Tazobac SUSCEPTIBLE 8 F Ampicillin Sulbact RESISTANT >=32 F Ceftriaxone SUSCEPTIBLE <=1 F Meropenem SUSCEPTIBLE <=0.25 F Ertapenem SUSCEPTIBLE <=0.5 F Comment: Performed By: #### URCUL ### #[facility] [place], [place] [phone] progress on 2020-03 PROGRESS HNO ID: [id number] Normal 04-01-2020 [facility] Author: Carline Pollock (Full Stack Software Developer Instruments Sales Representative) Lu Lander ([id number]) Service: ? Author Type: Nurse Practitioner Type: Progress Notes Filed: 04/01/2020 4:44 PM Note Text: Subjective HPI Tye Vazquez is a 80 year old male who presents with right sided low back pain, gross hematuria, and burning with urination for t he last 3 days. Per patient, he passed a blood clot in his urine earli er today. History of urinary tract infection with admission in the pas t. He has increased his fluids and started drinking cranberry juice. D enies any fever or chills, but temp is elevated here at 99.7 F. Feels well otherwise. Review of Systems Constitutional: Negative for chills, fever and malaise/fatig ue. HENT: Negative for congestion. Respiratory: Negative for cough and sputum production. Cardiovascular: Negative for chest pain and palpitations. Gastrointestinal: Negative for abdominal pain, diarrhea, sushant sea and vomiting. Genitourinary: Positive for dysuria, flank pain, frequency, hematuria and urgency. Musculoskeletal: Positive for back pain. Negative for falls, joint pain, myalgias and neck pain. Skin: Negative for itching and rash. Neurological: Negative for dizziness, speech change and weak ness. Psychiatric/Behavioral: Negative for memory loss. The patien t is not nervous/anxious. BP 112/64 Pulse 70 Temp 37.6 ?C (99.7 ?F) (Tympanic) R johana 16 Wt 70.8 kg (156 lb) BMI 24.43 kg/m? PAST MEDICAL HISTORY Diagnosis Date - Benign neoplasm of colon - Benign neoplasm of rectum and anal canal - Clostridium difficile colitis 05/14/2017 - DDD (degenerative disc disease), lumbar 11/07/2016 - Diarrhea - Esophageal reflux 08/29/2006 - Essential hypertension, benign - Inguinal hernia without mention of obstruction or gangrene , unilateral or unspecified, (not specified as recurrent) 10/11/2008 - Mixed hyperlipidemia 09/02/2006 - Nonspecific (abnormal) findings on radiological and other examination of abdominal area, including retroperitoneum - PAD (peripheral artery disease) (HCC) - Prostate cancer (HCC) - 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 - Umbilical hernia without mention of obstruction or gangren e 10/11/2008 PAST SURGICAL HISTORY Procedure Laterality Date - COLONOSCOP W/ OR W/O [facility] SPEC 04/26/2014 Colonoscopy - COLONOSCOP W/ OR W/O [facility] SPEC 05/07/16 Colonoscopy - COLONOSCOPY AND POLYPECTOMY 05/15/10 tubular adenomas removed- [place] - LAMINECTOMY,>2 SGMT,LUMBAR 06/11/2018 [facility] [place] - PAST SURGICAL HISTORY OF 2001 bilat cataracts, retina - RECONSTRUCT PROX HUMERAL IMPLANT Right 1993 Arthroplasty, shoulder right x 2. 1991, 1993. - REPAIR ING HERNIA,5+Y/O,REDUCIBL 11/26/2008 left - REPAIR ING HERNIA,5+Y/O,REDUCIBL 01/20/2018 Hernia repair, inguinal right, indirect w/medium mesh plug W [facility] - REPAIR UMBILICAL ALBERT,5+Y/O,REDUC 11/26/2008 - SEED IMPLANT 05/2010 for prostate cancer - SIGMOIDOSCOPY FLEX DIAG 12/05/10 ALLERGIES Patient has no known allergies. MEDICATIONS cilostazol (PLETAL) 50 mg tablet Take 2 tablets by mouth twi ce daily. amLODIPine (NORVASC) 10 mg tablet Take 1 tablet by mouth onc e daily. metoprolol tartrate, short acting, (LOPRESSOR) 50 mg tablet Take 1 tablet by mouth twice daily. omeprazole (PRILOSEC) 20 mg capsule Take 1 capsule by mouth once daily. atorvastatin (LIPITOR) 10 mg tablet Take 1 tablet by mouth o nce daily. lisinopril (ZESTRIL, PRINIVIL) 40 mg tablet Take 1 tablet by mouth once daily. gabapentin (NEURONTIN) 300 mg capsule Take 2 capsules by fermín th daily at bedtime for 180 days. aspirin, enteric coated (ASPIRIN, ENTERIC COATED) 81 mg EC t ablet Take 81 mg by mouth once daily. ciprofloxacin HCl (CIPRO) 500 mg tablet Take 1 tablet by fermín th twice daily for 7 days. FAMILY HISTORY Problem Relation Age of Onset - Diabetes Brother skin cancer - Prostate Cancer Brother - Stroke Mother - Blood Disease Father - Coronary Artery Disease Brother - other (Other) Brother paraplegia Social History Tobacco Use - Smoking status: Current Every Day Smoker Years: 30.00 Types: Cigarettes - Smokeless tobacco: Never Used - Tobacco comment: 2-3 per day Substance Use Topics - Alcohol use: Yes Alcohol/week: 7.5 standard drinks Types: 3 Glasses of Wine (5oz) per week Comment: 1/2 oz at night - Drug use: No CMP: Glucose 74 11/17/2019 BUN 15 11/17/2019 Creatinine 1.11 11/17/2019 Sodium 141 11/17/2019 Potassium 3.5 11/17/2019 Chloride 104 11/17/2019 CO2 24 11/17/2019 Protein, Total 7.2 11/17/2019 Albumin 4.2 11/17/2019 Calcium 10.0 11/17/2019 Alkaline Phosphatase 91 11/17/2019 Bilirubin, Total 0.4 11/17/2019 AST 19 11/17/2019 ALT 10 11/17/2019 Objective Physical Exam Constitutional: He is oriented to person, place, and time an d well-developed, well-nourished, and in no distress. HENT: Head: Normocephalic and atraumatic. Eyes: Conjunctivae are normal. Cardiovascular: Normal rate, regular rhythm, normal heart so unds and intact distal pulses. Exam reveals no gallop and no friction rub. No murmur heard. Pulmonary/Chest: Effort normal and breath sounds normal. No respiratory distress. He has no wheezes. He has no rales. He exhibits no tenderness. Abdominal: Soft. Bowel sounds are normal. He exhibits no dis tension and no mass. There is no hepatosplenomegaly. There is no abdominal tenderness. There is no rebound, no guarding and no CVA tenderness. Musculoskeletal: General: No edema. Lymphadenopathy: He has no cervical adenopathy. Neurological: He is alert and oriented to person, place, and time. Gait normal. Skin: Skin is warm and dry. He is not diaphoretic. ASSESSMENT/PLAN: 1. Gross hematuria - ICD9: 599.71, ICD10: R31.0 (primary kayce gnosis) 2. Acute midline low back pain without sciatica - ICD9: 724. 2, ICD10: M54.5 - UA positive for blood, protein, nitrites, and leukocytes - Start Cipro- on CARSON inhibitor so avoid Bactrim - UA DIP, URINE (POC) - URINE CULTURE- will call only if changes need made - CIPROFLOXACIN 500 MG TABLET- discussed joint pain s/e and what to do should this occur Red flags and reasons to go to ED reviewed. Check temps dana y. Monitor urine output and LBP closely. All of the above discussed with the patient in detail. Guzman villeda is in agreement with the above plan. Treatment and plan of care di scussed including course of treatment, possible medication side effe cts, and what to watch for in regards to worsening signs and symptoms. All questions addressed. Carline Leigh APRN.CNP cnov on 2020-04-01 CNOV Office Visit ([facility]WSTR) Normal 04-01-20 [facility] TYE VAZQUEZ ([id number]) 1940 [facility] Date Time Provider Department ([id number]) 04/01/20 3:30 PM CARLINE LEIGH (ADULT SPECIALIST, CERTIFIED SHORTHAND REPORTER)UCWSTR During your visit today, we recorded the following informati on about you: Temperature Pulse Respiration Blood pressure 99.7 degrees 70/minute 16/minute 112/64 Weight 70.8 kg Carline Leigh APRN.CERTIFIED SHORTHAND REPORTER 04/01/2020 3:56 PM Signed Urinary Tract Infections (Also Called 'UTI (Urinary Tract Infection)') The urinary tract makes and stores urine, one of the body?s liquid waste products. The urinary tract includes the following parts: Kidneys, which produce urine by removing waste and water fro m the blood Ureters, the tubes that carry urine from the kidneys to the bladder Bladder, the sac-like container for storing urine Urethra, the tube that carries urine from the bladder to outside of the body What is a urinary tract infection? Normal urine contains no bacteria (germs). Sometimes, however, bacteria from outside the body get into the urinary tract, and cause infec tion and inflammation. This is a urinary tract in fection. The infection can involve the urethra (a condition called urethritis), kidneys (a conditio n called pyelonephritis) or bladder, (a condition called cystitis). Cystitis is the most common type of urinary tract infection. What are the symptoms of a urinary tract infection? A urinary tract infection causes the andie ing of the urinary tract to become red and irritated, which may produce some of the following sympt oms: Pain in the flank (side), abdomen or pelvic area Pressure in the lower pelvis Frequent need to urinate (frequency) Painful urination (dysuria) Urgent need to urinate (urgency) Incontinence (urine leakage) The need to urinate at night Abnormal urine color (cloudy urine) Blood in the urine Strong or foul-smelling urine Other symptoms that may be associated with a uri nary tract infection include: Pain during sex Penis pain Flank (side of the body) pain Fatigue Fever (temperature above 100oF) Chills Vomiting Mental changes or confusion What causes a urinary tract infection? Urinary tract infections are caused by microorganisms?usua lly bacteria?that enter the urethra and bladde r, causing inflammation and infection. The bacteria also may travel up the ureters and infect the kidneys. More than 90 percent of cystitis cases are caused by E. coli , a bacterium normally found in the intestines. How common are urinary tract infections? Urinary tract infections are very common, occurring in 1 out of 5 women sometime in their lifetime. One to 2% of children develop ur inary tract infections. Each year, 8 million to 10 million visits to [facility] are for urinary tract infections. Who gets urinary tract infections? Anyone can get a urinary tract infection, but they are more common in women. This is because the urethra in females is shorter and closer to the anus, where E. coli bacteria are common. Older adults also are at higher risk for developing cystitis. This increased risk may be due to incomplete emptying of the bladder related to various medical conditions, including an enlarged prostate or a bladder prolapse (i.e., falling do wn or slipping of the bladder from its usual position). If you get frequent urinary tract infections, your doctor may do tests to check for other health pr oblems?such as diabetes or an abnormal urinary system?that may be contributing to your inf ections. How are urinary tract infections diagnosed? Your doctor will use the fol lowing tests to diagnose a urinary tract infection: Urinalysis to examine the urine for red blood cells, white b lood cells and bacteria (The number of white and red blood cell s can indicate an infection.) Urine culture to determine t he type of bacteria in the urine. This is important to help determine the appropriate treatment. If your infection does not respond to treatment or if you ge t repeated infections, your doctor may use the following tests to exa mine your urinary tract for disease or injury: Intravenous pyelogram (IVP), a series of X-rays of the kendrick dder, kidneys and ureters after a special dye is injected (The dye helps the structures to show up better on the X-ray.) Ultrasound, a test that uses sound waves to form images of i nternal organs Cystoscopy, a test that uses a special instrument fitted wit h a lens and a light source (cystoscope) to see inside the bladder from the urethra CT scan, a type of X-ray that takes cros s sections of the body (like slices) ? much more precise than typical X-rays How are urinary tract infections treated? Antibiotics, medicines that kill the luba teria, are used to treat urinary tract infections. Your doctor will choose a drug that best treats the bacteria causing your infection. Commonly used antibiotics include: Nitrofurantoin Sulfonamides (sulfa drugs) Amoxicillin Cephalosporins Trimethoprim/sulfamethoxazole (Bactrim?) Doxycycline Quinolones (such as ciprofloxacin [Cipro?]) It is very important that you follow your doctor?s dir ections for taking the medicine. Do not stop taking the antibiotic marilou use your symptoms go away and you start feeling better. If you have a history of frequent urinary tract infections, you may be given a prescription for antibiotics that you would take at the first onset of sympto ms. Other patients may be given antibiotics to take every day, every other day, or after sexual intercourse to p revent the infection. If the infection is not treated compl etely with the full course of antibiotics, it can return. What are the complications of a urinary tract infection? A urinary tract infection that is not treated can lead to a more serious infection of the kidneys. Can urinary tract infections be prevented? There are some steps you can take to reduce your risk of developing a urinary tract infection: Follow good hygiene practices of the genital are a (especially women). After a bowel movement, the genitals should be wiped fro m front to back to reduce the chance of dragging E. coli bacteria from the rectal area to the urethra. Urinate frequently. This flu shes bacteria out of the bladder and may reduce the risk of cystitis in those who are prone to urina ry tract infections. Drinking plenty of fluids encourages frequent urination. Avoid flui ds and foods that irritate the bladder, such as alcohol, citrus juices, drinks containing caffeine and spicy foods. Also avoid smoking during this luis fernando e. Urinate immediately before a nd after sex. This may help flush out bacteria that may have been introduced during intercourse. Wash the genital area with warm water before having sex. Apply an estrogen-containing vaginal cream in po st-menopausal women to reduce the risk of a urinary tract infection. Drink at least 6-8 glasses of water a day Don't douche Don't use feminine deodorants on your genital area Change tampons and feminine pads often Use a water-based lubricant during sex if you have vaginal d ryness Check with your doctor if you think your diaphragm is causin g infection Wear cotton underwear Take showers instead of baths Avoid tight-fitting clothing and pantyhose What is the prognosis (out[place]) for a person with a ur inary tract infection? While urinary tract infections may be uncomfortable, they generally respond well to treatment. When should I call my health care provider? Call your health care provider if you have symptoms of a uri nary tract infection. Also call if you have been diagnosed with an infe ction and your symptoms get worse or you de velop new symptoms, especially fever, back pain and vomiting. Carline Leigh APRN.CERTIFIED SHORTHAND REPORTER 04/01/2020 4:44 PM Signed Subjective HPI Tye Vazquez is a 80 year old male who presents with rig ht sided low back pain, gross hematuria, and burning with urination for the 3 days. Per patient, he passed a blood clot in his u rine earlier today. History of urinary tract infection with admission in the past. He has increas ed his fluids and started drinking cranberry juice. Denies any fever or chills , but temp is elevated here at 99.7 F. Feels well otherwise. Review of Systems Constitutional: Negative for chills, fever and malaise/fatig ue. HENT: Negative for congestion. Respiratory: Negative for cough and sputum production. Cardiovascular: Negative for chest pain and palpitations. Gastrointestinal: Negative for abdominal pain, d iarrhea, nausea and vomiting. Genitourinary: Positive for dysuria, flank pain, frequency, hematuria and urgency. Musculoskeletal: Positive for back pain. Negative for falls, joint pain, myalgias and neck pain. Skin: Negative for itching and rash. Neurological: Negative for dizziness, speech change and weak ness. Psychiatric/Behavioral: Negative for memory loss. The patien t is not nervous/anxious. BP 112/64 Pulse 70 Temp 37.6 ?C (99.7 ?F) (Tympanic) R johana 16 Wt 70.8 kg (156 lb) BMI 24.43 kg/m? PAST MEDICAL HISTORY Diagnosis Date - Benign neoplasm of colon - Benign neoplasm of rectum and anal canal - Clostridium difficile colitis 05/14/2017 - DDD (degenerative disc disease), lumbar 11/07/2016 - Diarrhea - Esophageal reflux 08/29/2006 - Essential hypertension, benign - Inguinal hernia without mention of obstruction or gangre ne, unilateral or unspecified, (not specified as recurrent) 10/11/2008 - Mixed hyperlipidemia 09/02/2006 - Nonspecific (abnormal) findings on radiological and other examination of abdominal area, including retroperitoneum - PAD (peripheral artery disease) (HCC) - Prostate cancer (HCC) - 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. - Umbilical hernia without mention of obstruction or gangren e 10/11/2008 PAST SURGICAL HISTORY Procedure Laterality Date - COLONOSCOP W/ OR W/O [facility] SPEC 04/26/2014 Colonoscopy - COLONOSCOP W/ OR W/O [facility]C 05/07/16 Colonoscopy - COLONOSCOPY AND POLYPECTOMY 05/15/10 tubular adenomas removed- [place] - LAMINECTOMY,>2 SGMT,LUMBAR 06/11/2018 [facility] [place] - PAST SURGICAL HISTORY OF 2002 bilat cataracts, retina - RECONSTRUCT PROX HUMERAL IMPLANT Right 1993 Arthroplasty, shoulder right x 2. 1991, 1993. - REPAIR ING HERNIA,5+Y/O,REDUCIBL 11/26/2008 left - REPAIR ING HERNIA,5+Y/O,REDUCIBL 01/20/2018 Hernia repair, inguinal right, indirect w/medium mesh plug [facility] - REPAIR UMBILICAL ALBERT,5+Y/O,REDUC 11/26/2008 - SEED IMPLANT 05/2010 for prostate cancer - SIGMOIDOSCOPY FLEX DIAG 12/05/10 ALLERGIES Patient has no known allergies. MEDICATIONS cilostazol (PLETAL) 50 mg tablet Take 2 tablets by mouth twi ce daily. amLODIPine (NORVASC) 10 mg tablet Take 1 tablet by mouth onc e daily. metoprolol tartrate, short acting, (LOPRESSOR) 50 mg t ablet Take 1 tablet by mouth twice daily. omeprazole (PRILOSEC) 20 mg capsule Take 1 capsule by mouth once daily. atorvastatin (LIPITOR) 10 mg tablet Take 1 tablet by mouth o nce daily. lisinopril (ZESTRIL, PRINIVIL) 40 mg tab let Take 1 tablet by mouth once daily. gabapentin (NEURONTIN) 300 m g capsule Take 2 capsules by mouth daily at bedtime for 180 days. aspirin, enteric coated (ASP IRIN, ENTERIC COATED) 81 mg EC tablet Take 81 mg by mouth once daily. ciprofloxacin HCl (CIPRO) 500 mg tablet Take 1 tablet by mouth twice daily for 7 days. FAMILY HISTORY Problem Relation Age of Onset - Diabetes Brother skin cancer - Prostate Cancer Brother - Stroke Mother - Blood Disease Father - Coronary Artery Disease Brother - other (Other) Brother paraplegia Social History Tobacco Use - Smoking status: Current Every Day Smoker Years: 30.00 Types: Cigarettes - Smokeless tobacco: Never Used - Tobacco comment: 2-3 per day Substance Use Topics - Alcohol use: Yes Alcohol/week: 7.5 standard drinks Types: 3 Glasses of Wine (5oz) per week Comment: 1/2 oz at night - Drug use: No CMP: Glucose 74 11/17/2019 BUN 15 11/17/2019 Creatinine 1.11 11/17/2019 Sodium 141 11/17/2019 Potassium 3.5 11/17/2019 Chloride 104 11/17/2019 CO2 24 11/17/2019 Protein, Total 7.2 11/17/2019 Albumin 4.2 11/17/2019 Calcium 10.0 11/17/2019 Alkaline Phosphatase 91 11/17/2019 Bilirubin, Total 0.4 11/17/2019 AST 19 11/17/2019 ALT 10 11/17/2019 Objective Physical Exam Constitutional: He is oriented to person, place, and time and well-developed, well-nourished, and in no distress. HENT: Head: Normocephalic and atraumatic. Eyes: Conjunctivae are normal. Cardiovascular: Normal rate, regular rhythm, normal heart sounds and intact distal pulses. Exam reveals no gallop and no friction rub. No murmur heard. Pulmonary/Chest: Effort normal and breath sounds normal. No respiratory distress. He has no wheezes. He has no rales. He exhibits no tenderness. Abdominal: Soft. Bowel sounds are normal. He exhibits no dis tension and no mass. There is no hepatosplenomegaly. There is n o abdominal tenderness. There is no rebound, no guarding and no CVA tenderness. Musculoskeletal: General: No edema. Lymphadenopathy: He has no cervical adenopathy. Neurological: He is alert an d oriented to person, place, and time. Gait normal. Skin: Skin is warm and dry. He is not diaphoretic. ASSESSMENT/PLAN: 1. Gross hematuria - ICD9: 599.71, ICD10: R31.0 (primary kayce gnosis) 2. Acute midline low back pain without sciatica - ICD9: 72 4.2, ICD10: M54.5 - UA positive for blood, protein, nitrites, and leukocytes - Start Cipro- on CARSON inhibitor so avoid Bactrim - UA DIP, URINE (POC) - URINE CULTURE- will call only if changes need made - CIPROFLOXACIN 500 MG TABLET- discussed joint p ain s/e and what to do should this occur Red flags and reasons to go to ED reviewed. Check temp s daily. Monitor urine output and LBP closely. All of the above discussed with the jose ent in detail. Patient is in agreement with the above plan. Treatment and plan of care discussed including course of treatment, possible medication side effects, and what to watch for in regards to worsening signs and symptoms. All questions addressed. 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 #:[id number] URINE CULTURE [SQURCUL] Order #: [id number] ciprofloxacin HCl (CIPRO) 500 mg tabletTake 1 tablet by mout h twice daily for 7 days.Disp: 14 tabletRfl: 0 Prescriptions as of 04/01/2020 Sig: CILOSTAZOL 50 MG TABLET Take 2 tablets by mouth twice* AMLODIPINE 10 MG TABLET Take 1 tablet by mouth once d* METOPROLOL TARTRATE 50 MG TAB* Take 1 tablet by mouth twice * OMEPRAZOLE 20 MG CAPSULE,ROCK* Take 1 capsule by mouth once * ATORVASTATIN 10 MG TABLET Take 1 tablet by mouth once d* LISINOPRIL 40 MG TABLET Take 1 tablet by mouth once d* GABAPENTIN 300 MG CAPSULE Take 2 capsules by mouth dana* ASPIRIN 81 MG TABLET,DELAYED * Take 81 mg by mouth once dana * CIPROFLOXACIN 500 MG TABLET Take 1 tablet by mouth twice * Problem List As Of Date 04/01/2020 Noted Resolved Dermatophytosis of foot [B35.3] 11/27/2005 06/14/2017 Esophageal reflux [K21.9] 08/29/2006 More... HYPERTENSION NOS [I10] 09/02/2006 03/29/2014 More... Mixed hyperlipidemia [E78.2] 09/02/2006 More... Ganglion of tendon sheath [M67.40] 03/19/2007 11/07/2016 Unspecified disorder of prostate [N42.9] 06/21/2007 09/06/20 14 Inguinal hernia without mention of obstruction *10/11/2008 0 11/07/2016 Umbilical hernia without mention of obstruction*10/11/2008 0 11/07/2016 Rotator cuff (capsule) sprain [S43.429A] 09/20/2009 11/07/19 17 Malignant neoplasm of prostate (HCC) [C61] 02/07/20102016 More... Benign neoplasm of rectum and anal canal [D12.8*05/15/2010 More... Tobacco use disorder [F17.200] 05/23/2010 More... Frequency of urination [R35.0] 10/02/2010 11/07/2016 Prostate cancer [C61] More... Diarrhea [R19.7] 12/05/2010 09/06/2014 Inguinal neuralgia [M79.2] 03/12/2013 11/07/2016 Rotator cuff impingement syndrome of right shou*04/10/2015 0 11/19/2019 Medicare annual wellness visit, subsequent [Z00*04/10/2015 0 06/20/2018 Right-sided low back pain with right-sided scia*10/03/2015 0 05/15/2016 Essential hypertension [I10] 10/16/2015 More... DDD (degenerative disc disease), lumbar [M51.36]11/07/2016 More... Clostridium difficile colitis [A04.72] 05/14/2017 06/20/2018 Inguinal hernia [K40.90] 01/20/2018 06/20/2018 More... Traumatic complete tear of left rotator cuff [S*11/03/2018 0 11/19/2019 More... 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 PAD (peripheral artery disease) (HCC) [I73.9] 09/21/2019 Other insomnia [G47.09] 09/22/2019 More... Anemia [D64.9] 09/24/2019 11/19/2019 More... Acute respiratory failure with hypoxia (HCC) [J*09/24/2019 0 11/19/2019 More... Leucocytosis [D72.829] 09/25/2019 11/19/2019 More... Other instructions from your clinician: Urinary Tract Infections (Also Called 'UTI (Urinary Tract Infection)') The urinary tract makes and stores urine, one of the body?s liquid waste products. The urinary tract includes the following parts: Kidneys, which produce urine by removing waste and water fro m the blood Ureters, the tubes that carry urine from the kidneys to the bladder Bladder, the sac-like container for storing urine Urethra, the tube that carries urine from the bladder to out side of the body What is a urinary tract infection? Normal urine contains no bacteria (germs). Sometimes, howeve r, bacteria from outside the body get into the urinary tract, and cause infection and inflammation. This is a urinary tract infection. The infecti on can involve the urethra (a condition called urethritis), kidneys (a cond ition called pyelonephritis) or bladder, (a condition called cystitis). C ystitis is the most common type of urinary tract infection. What are the symptoms of a urinary tract infection? A urinary tract infection causes the lining of the urinary t ract to become red and irritated, which may produce some of the following s ymptoms: Pain in the flank (side), abdomen or pelvic area Pressure in the lower pelvis Frequent need to urinate (frequency) Painful urination (dysuria) Urgent need to urinate (urgency) Incontinence (urine leakage) The need to urinate at night Abnormal urine color (cloudy urine) Blood in the urine Strong or foul-smelling urine Other symptoms that may be associated with a urinary tract i nfection include: Pain during sex Penis pain Flank (side of the body) pain Fatigue Fever (temperature above 100oF) Chills Vomiting Mental changes or confusion What causes a urinary tract infection? Urinary tract infections are caused by microorganisms?usuall y bacteria?that enter the urethra and bladder, causing inflamm ation and infection. The bacteria also may travel up the ureters and i nfect the kidneys. More than 90 percent of cystitis cases are caused by E. coli , a bacterium normally found in the intestines. How common are urinary tract infections? Urinary tract infections are very common, occurring in 1 out of 5 women sometime in their lifetime. One to 2% of children develop ur inary tract infections. Each year, 8 million to 10 million visits to [facility] are for urinary tract infections. Who gets urinary tract infections? Anyone can get a urinary tract infection, but they are more common in women. This is because the urethra in females is shorter and closer to the anus, where E. coli bacteria are common. Older adults also a re at higher risk for developing cystitis. This increased risk may be due to incomplete emptying of the bladder related to various medical condition s, including an enlarged prostate or a bladder prolapse (i.e., falling do wn or slipping of the bladder from its usual position). If you get frequent urinary tract infections, your doctor may do tests to check for other heal th problems?such as diabetes or an abnormal urinary system?that may be contributing to your infections. How are urinary tract infections diagnosed? Your doctor will use the following tests to diagnose a urina ry tract infection: Urinalysis to examine the urine for red blood cells, white b lood cells and bacteria (The number of white and red blood cells can indica te an infection.) Urine culture to determine the type of bacteria in the urine . This is important to help determine the appropriate treatment. If your infection does not respond to treatment or if you ge t repeated infections, your doctor may use the following tests to exami ne your urinary tract for disease or injury: Intravenous pyelogram (IVP), a series of X-rays of the bladd er, kidneys and ureters after a special dye is injected (The dye helps t he structures to show up better on the X-ray.) Ultrasound, a test that uses sound waves to form images of i nternal organs Cystoscopy, a test that uses a special instrument fitted wit h a lens and a light source (cystoscope) to see inside the bladder from the urethra CT scan, a type of X-ray that takes cross sections of the [place]aked[place] dy (like slices) ? much more precise than typical X-rays How are urinary tract infections treated? Antibiotics, medicines that kill the bacteria, are used to t reat urinary tract infections. Your doctor will choose a drug that best t reats the bacteria causing your infection. Commonly used antibiotics i nclude: Nitrofurantoin Sulfonamides (sulfa drugs) Amoxicillin Cephalosporins Trimethoprim/sulfamethoxazole (Bactrim?) Doxycycline Quinolones (such as ciprofloxacin [Cipro?]) It is very important that you follow your doctor?s direction s for taking the medicine. Do not stop taking the antibiotic because your symptoms go away and you start feeling better. If you have a history of frequent urinary tract infections, you may be given a prescription fo r antibiotics that you would take at the first onset of symptoms. Other pa tients may be given antibiotics to take every day, every other day, or aft er sexual intercourse to prevent the infection. If the infection is no t treated completely with the full course of antibiotics, it can retur n. What are the complications of a urinary tract infection? A urinary tract infection that is not treated can lead to a more serious infection of the kidneys. Can urinary tract infections be prevented? There are some steps you can take to reduce your risk of dev eloping a urinary tract infection: Follow good hygiene practices of the genital area (especiall y women). After a bowel movement, the genitals should be wiped from fr ont to back to reduce the chance of dragging E. coli bacteria from the rect al area to the urethra. Urinate frequently. This flushes bacteria out of the bladder and may reduce the risk of cystitis in those who are prone to urinar y tract infections. Drinking plenty of fluids encourages frequent ur ination. Avoid fluids and foods that irritate the bladder, such as alcohol, citrus juices, drinks containing caffeine and spicy foods. Also maciel id smoking during this time. Urinate immediately before and after sex. This may help flus h out bacteria that may have been introduced during intercourse. Wash the g enital area with warm water before having sex. Apply an estrogen-containing vaginal cream in post-menopausa l women to reduce the risk of a urinary tract infection. Drink at least 6-8 glasses of water a day Don't douche Don't use feminine deodorants on your genital area Change tampons and feminine pads often Use a water-based lubricant during sex if you have vaginal d ryness Check with your doctor if you think your diaphragm is causin g infection Wear cotton underwear Take showers instead of baths Avoid tight-fitting clothing and pantyhose What is the prognosis (outlook) for a person with a urinary tract infection? While urinary tract infections may be uncomfortable, they ge nerally respond well to treatment. When should I call my health care provider? Call your health care provider if you have symptoms of a uri nary tract infection. Also call if you have been diagnosed with an infe ction and your symptoms get worse or you develop new symptoms, especially f ever, back pain and vomiting. Prescriptions ordered this encounter Disp Refills Start End CIPROFLOXACIN 500 MG TABLET 14 t* 0 04/01/2020 04/08/2020 Route: ORAL Sig: Take 1 tablet by mouth twice daily for 7 days. Medications Discontinued During This Encounter triamcinolone acetonide (KENALOG) 0.* 30 g 0 03/18/2018 020 Route: TOPICAL Sig: Apply 1 application to affected area twice daily. For rash/itching. Apply sparingly. Avoid face/skin fold. Patient not taking: Reported on 04/01/2020 Disc: Course of therapy completed Encounter Status:Closed by LU YU.CARLINE LEMUS on 04/01 progress on 2020-02 PROGRESS HNO ID: [id number] Normal 03-09-2020 [facility] Author: Aron Mena [place] ([id number]) Service: ? Author Type: Physician Type: Progress Notes Filed: 03/09/2020 11:47 AM Note Text: [facility] OUTPATIENT VISIT DATE March 09, 2020 OUTPATIENT VISIT TYPE EST PRIMARY CARE PHYSICIAN: Talon Bolaños MD [address] [place] [address] REFERRING PHYSICIAN Aron Mena MD [address] [facility] [address] CHIEF COMPLAINT: Patient presents with: Established Patient Follow-Up: Test Results HISTORY OF PRESENT ILLNESS: ? Mr. Vazquez is a 80 year old male who is seen today for follo w up evaluation s/p left common, superficial and profunda femoris endarterectomy and patch angioplasty 09/2019. Known history of left popliteal artery occlusion. Last week diagnosed with ruptured right Galvan's cyst. Prior to this event he had been walking a couple of hundred feet at at a time, doing yard work and to the mailbox. He has been having chronic left halux pain. Continues on ASA, statin, cilostazol. Smokes, however down to 1-2 cigarettes per day. 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 Diffuse tibial disease. Right galvan's cyst. SAMANTHA right 0.92 left 0.59 PAST MEDICAL HISTORY Diagnosis Date - Benign neoplasm of colon - Benign neoplasm of rectum and anal canal - Clostridium difficile colitis 05/14/2017 - DDD (degenerative disc disease), lumbar 11/07/2016 - Diarrhea - Esophageal reflux 08/29/2006 - Essential hypertension, benign - Inguinal hernia without mention of obstruction or gangrene , unilateral or unspecified, (not specified as recurrent) 10/11/2008 - Mixed hyperlipidemia 09/02/2006 - Nonspecific (abnormal) findings on radiological and other examination of abdominal area, including retroperitoneum - PAD (peripheral artery disease) (HCC) - Prostate cancer (HCC) - 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. - Umbilical hernia without mention of obstruction or gangren e 10/11/2008 PAST SURGICAL HISTORY Procedure Laterality Date - COLONOSCOP W/ OR W/O [facility] SPEC 04/26/2014 Colonoscopy - COLONOSCOP W/ OR W/O [facility] SPEC 05/07/16 Colonoscopy - COLONOSCOPY AND POLYPECTOMY 05/15/10 tubular adenomas removed- [place] - LAMINECTOMY,>2 SGMT,LUMBAR 06/11/2018 [facility] - PAST SURGICAL HISTORY OF 2001 bilat cataracts, retina - RECONSTRUCT PROX HUMERAL IMPLANT Right 1993 Arthroplasty, shoulder right x 2. 1991, 1993. - REPAIR ING HERNIA,5+Y/O,REDUCIBL 11/26/2008 left - REPAIR ING HERNIA,5+Y/O,REDUCIBL 01/20/2018 Hernia repair, inguinal right, indirect w/medium mesh plug [facility] - REPAIR UMBILICAL ALBERT,5+Y/O,REDUC 11/26/2008 - SEED IMPLANT 05/2010 for prostate cancer - SIGMOIDOSCOPY FLEX DIAG 12/05/10 SOCIAL HISTORY Social History Tobacco Use - Smoking status: Current Every Day Smoker Years: 30.00 Types: Cigarettes - Smokeless tobacco: Never Used - Tobacco comment: 2-3 per day Substance Use Topics - Alcohol use: Yes Alcohol/week: 7.5 standard drinks Types: 3 Glasses of Wine (5oz) per week Comment: 1/2 oz at night - Drug use: No FAMILY HISTORY Problem Relation Age of Onset - Diabetes Brother skin cancer - Prostate Cancer Brother - Stroke Mother - Blood Disease Father - Coronary Artery Disease Brother - other (Other) Brother paraplegia ALLERGIES: ALLERGIES No Known Allergies MEDICATIONS: HYDROcodone-acetaminophen (NORCO) 5-325 mg per tablet Take 1 tablet by mouth twice daily as needed for Pain (right leg pain) for up to 3 days. cilostazol (PLETAL) 50 mg tablet Take 2 tablets by mouth twi ce daily. clopidogrel (PLAVIX) 75 mg tablet Take 1 tablet by mouth onc e daily. amLODIPine (NORVASC) 10 mg tablet Take 1 tablet by mouth onc e daily. metoprolol tartrate, short acting, (LOPRESSOR) 50 mg tablet Take 1 tablet by mouth twice daily. omeprazole (PRILOSEC) 20 mg capsule Take 1 capsule by mouth once daily. atorvastatin (LIPITOR) 10 mg tablet Take 1 tablet by mouth o nce daily. lisinopril (ZESTRIL, PRINIVIL) 40 mg tablet Take 1 tablet by mouth once daily. gabapentin (NEURONTIN) 300 mg capsule Take 2 capsules by fermín th daily at bedtime for 180 days. aspirin, enteric coated (ASPIRIN, ENTERIC COATED) 81 mg EC t ablet Take 81 mg by mouth once daily. triamcinolone acetonide (KENALOG) 0.5 % cream Apply 1 applic ation to affected area twice daily. For rash/itching. Apply sparingly . Avoid face/skin fold. REVIEW OF SYSTEMS: Gen: no malaise All other ROS: negative I personally interviewed, confirmed and edited the above inf ormation as obtained by others. PHYSICAL EXAMINATION: BP 140/72 (BP Site: Left Arm, BP Position: Sitting, BP Cuff Size: Regular Adult) Pulse 98 Wt 72.8 kg (160 lb 9.6 oz) BMI 25.15 k g/m? General appearance: alert and cooperative individual, in no acute distress. Neck: no JVD Pulmonary: Lungs clear to auscultation bilaterally. Coronary: regular rate and regular rhythm Lower Extremities: Feet and toes warm Palp right DP pulse, doppler biphasic left DP Left halux ~2 sec cap refill Motor/sensory intact in bilateral feet Ecchymosis of the right leg, wrapped CARDIOVASCULAR MEDICINE TESTING: I have personally reviewed the DUS, SAMANTHA/PVR. IMPRESSION/PLAN: Mr. Vazquez is a 80 year old male PMH smoker, PAD, s/p left f emoral endarterectomy, with chronic left halux pain. Risks and benefits of left lower extremity angiography and i ntervention were discussed, with risks including but not limited to blee ding at either the access or intervention site, contrast reaction, contrast induced kidney injury and worsening limb ischemia. Understanding thi s Mr. Vazquez wished to proceed in an attempt at alleviating his left halu x pain. Given recent issue with his Galvan cyst will have patient com plete his evaluation with orthopedics before proceeding. Aron Mena MD cnov on 2020-03-09 CNOV Office Visit (KADEND) Normal 03-09-20 [facility] TYE VAZQUEZ ([id number]) 1940 [address] [place] Date Time Provider Department ([id number]) 03/09/20 11:30 AM ARON MENA During your visit today, we recorded the following informati on about you: Pulse Blood pressure Weight 98/minute 140/72 72.8 kg Aron Mena MD 03/09/2020 11:47 AM Signed [facility] OUTPATIENT VISIT DATE March 09, 2020 OUTPATIENT VISIT TYPE EST PRIMARY CARE PHYSICIAN: Talon Bolaños MD [address] [place] [address] REFERRING PHYSICIAN Aron Mena MD [address] [facility] [address] CHIEF COMPLAINT: Patient presents with: Established Patient Follow-Up: Test Results HISTORY OF PRESENT ILLNESS: ? Mr. Vazquez is a 80 year old male who is seen today for fol low up evaluation s/p left common, superficial and profunda femoris endarterec alethea and patch angioplasty 09/2019. Known history of left popliteal artery occlusion. Last week diagnosed with ruptured right Galvan's cyst. Prior to this event he had been walking a couple of hundred feet at at a time, doing yard work and to the mailbox. He has been having chronic left halux pain. Continues on ASA, statin, cilostazol. Smokes, however down to 1-2 cigarettes per day. 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 Diffuse tibial disease. Right galvan's cyst. SAMANTHA right 0.92 left 0.59 PAST MEDICAL HISTORY Diagnosis Date - Benign neoplasm of colon - Benign neoplasm of rectum and anal canal - Clostridium difficile colitis 05/14/2017 - DDD (degenerative disc disease), lumbar 11/07/2016 - Diarrhea - Esophageal reflux 08/29/2006 - Essential hypertension, benign - Inguinal hernia without mention of obstruction or gangre ne, unilateral or unspecified, (not specified as recurrent) 10/11/2008 - Mixed hyperlipidemia 09/02/2006 - Nonspecific (abnormal) findings on radiological and other examination of abdominal area, including retroperitoneum - PAD (peripheral artery disease) (HCC) - Prostate cancer (HCC) - 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. - Umbilical hernia without mention of obstruction or gangren e 10/11/2008 PAST SURGICAL HISTORY Procedure Laterality Date - COLONOSCOP W/ OR W/O [facility] SPEC 04/26/2014 Colonoscopy - COLONOSCOP W/ OR W/O [facility] SPEC 05/07/16 Colonoscopy - COLONOSCOPY AND POLYPECTOMY 05/15/10 tubular adenomas removed- [place] - LAMINECTOMY,>2 SGMT,LUMBAR 06/11/2018 [facility] - PAST SURGICAL HISTORY OF 2001 bilat cataracts, retina - RECONSTRUCT PROX HUMERAL IMPLANT Right 1993 Arthroplasty, shoulder right x 2. 1991, 1993. - REPAIR ING HERNIA,5+Y/O,REDUCIBL 11/26/2008 left - REPAIR ING HERNIA,5+Y/O,REDUCIBL 01/20/2018 Hernia repair, inguinal right, indirect w/medium mesh plug [facility] - REPAIR UMBILICAL ALBERT,5+Y/O,REDUC 11/26/2008 - SEED IMPLANT 05/2010 for prostate cancer - SIGMOIDOSCOPY FLEX DIAG 12/05/10 SOCIAL HISTORY Social History Tobacco Use - Smoking status: Current Every Day Smoker Years: 30.00 Types: Cigarettes - Smokeless tobacco: Never Used - Tobacco comment: 2-3 per day Substance Use Topics - Alcohol use: Yes Alcohol/week: 7.5 standard drinks Types: 3 Glasses of Wine (5oz) per week Comment: 1/2 oz at night - Drug use: No FAMILY HISTORY Problem Relation Age of Onset - Diabetes Brother skin cancer - Prostate Cancer Brother - Stroke Mother - Blood Disease Father - Coronary Artery Disease Brother - other (Other) Brother paraplegia ALLERGIES: ALLERGIES No Known Allergies MEDICATIONS: HYDROcodone-acetaminophen (NORCO) 5-325 mg per tablet Take 1 tablet by mouth twice daily as needed for Pain (right leg pain) for up to 3 days. cilostazol (PLETAL) 50 mg tablet Take 2 tablets by mouth twi ce daily. clopidogrel (PLAVIX) 75 mg tablet Take 1 tablet by mouth onc e daily. amLODIPine (NORVASC) 10 mg tablet Take 1 tablet by mouth onc e daily. metoprolol tartrate, short acting, (LOPRESSOR) 50 mg t ablet Take 1 tablet by mouth twice daily. omeprazole (PRILOSEC) 20 mg capsule Take 1 capsule by mouth once daily. atorvastatin (LIPITOR) 10 mg tablet Take 1 tablet by mouth o nce daily. lisinopril (ZESTRIL, PRINIVIL) 40 mg tab let Take 1 tablet by mouth once daily. gabapentin (NEURONTIN) 300 m g capsule Take 2 capsules by mouth daily at bedtime for 180 days. aspirin, enteric coated (ASP IRIN, ENTERIC COATED) 81 mg EC tablet Take 81 mg by mouth once daily. triamcinolone acetonide (KENALOG) 0.5 % cream Ap ply 1 application to affected area twice daily. For rash/itching. Apply sparingly. Avoid f carson/skin fold. REVIEW OF SYSTEMS: Gen: no malaise All other ROS: negative I personally interviewed, confirmed and edited the above inf ormation as obtained by others. PHYSICAL EXAMINATION: BP 140/72 (BP Site: Left Arm, BP Position: Sitting, BP Cuff Size: Regular Adult) Pulse 98 Wt 72.8 kg (160 lb 9.6 oz) BMI 25.15 k g/m? General appearance: alert and cooperative individual, in n o acute distress. Neck: no JVD Pulmonary: Lungs clear to auscultation bilaterally. Coronary: regular rate and regular rhythm Lower Extremities: Feet and toes warm Palp right DP pulse, doppler biphasic left DP Left halux ~2 sec cap refill Motor/sensory intact in bilateral feet Ecchymosis of the right leg, wrapped CARDIOVASCULAR MEDICINE TESTING: I have personally reviewed the DUS, SAMANTHA/PVR. IMPRESSION/PLAN: Mr. Vazquez is a 80 year old male PMH smoker, PAD, s/p left f emoral endarterectomy, with chronic left halux pain. Risks and benefits of left lower extremity angiography and intervention were discussed, with risks including but not limited to bleeding at either the access or intervention site, contrast re action, contrast induced kidney injury and worsening limb ischemia. Understanding this Mr. Vazquez wished to proceed in an attempt at alleviating his left halux pain. Given recent issue with his Galvan cyst will have patient com plete his evaluation with orthopedics before proceeding. 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) [I70.213] Prescriptions as of 03/09/2020 Sig: HYDROCODONE 5 MG-ACETAMINOPHE* Take 1 tablet by mouth twice * CILOSTAZOL 50 MG TABLET Take 2 tablets by mouth twice* AMLODIPINE 10 MG TABLET Take 1 tablet by mouth once d* METOPROLOL TARTRATE 50 MG TAB* Take 1 tablet by mouth twice * OMEPRAZOLE 20 MG CAPSULE,ROCK* Take 1 capsule by mouth once * ATORVASTATIN 10 MG TABLET Take 1 tablet by mouth once d* LISINOPRIL 40 MG TABLET Take 1 tablet by mouth once d* GABAPENTIN 300 MG CAPSULE Take 2 capsules by mouth dana* ASPIRIN 81 MG TABLET,DELAYED * Take 81 mg by mouth once dana * TRIAMCINOLONE ACETONIDE 0.5 %* Apply 1 application to affect * Problem List As Of Date 03/09/2020 Noted Resolved Dermatophytosis of foot [B35.3] 11/27/2005 06/14/2017 Esophageal reflux [K21.9] 08/29/2006 More... HYPERTENSION NOS [I10] 09/02/2006 03/29/2014 More... Mixed hyperlipidemia [E78.2] 09/02/2006 More... Ganglion of tendon sheath [M67.40] 03/19/2007 11/07/2016 Unspecified disorder of prostate [N42.9] 06/21/2007 09/06/20 14 Inguinal hernia without mention of obstruction *10/11/2008 0 11/07/2016 Umbilical hernia without mention of obstruction*10/11/2008 0 11/07/2016 Rotator cuff (capsule) sprain [S43.429A] 09/20/2009 11/07/19 17 Malignant neoplasm of prostate (HCC) [C61] 02/07/20102016 More... Benign neoplasm of rectum and anal canal [D12.8*05/15/2010 More... Tobacco use disorder [F17.200] 05/23/2010 More... Frequency of urination [R35.0] 10/02/2010 11/07/2016 Prostate cancer [C61] More... Diarrhea [R19.7] 12/05/2010 09/06/2014 Inguinal neuralgia [M79.2] 03/12/2013 11/07/2016 Rotator cuff impingement syndrome of right shou*04/10/2015 0 11/19/2019 Medicare annual wellness visit, subsequent [Z00*04/10/2015 0 06/20/2018 Right-sided low back pain with right-sided scia*10/03/2015 0 05/15/2016 Essential hypertension [I10] 10/16/2015 More... DDD (degenerative disc disease), lumbar [M51.36]11/07/2016 More... Clostridium difficile colitis [A04.72] 05/14/2017 06/20/2018 Inguinal hernia [K40.90] 01/20/2018 06/20/2018 More... Traumatic complete tear of left rotator cuff [S*11/03/2018 0 11/19/2019 More... 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 PAD (peripheral artery disease) (HCC) [I73.9] 09/21/2019 Other insomnia [G47.09] 09/22/2019 More... Anemia [D64.9] 09/24/2019 11/19/2019 More... Acute respiratory failure with hypoxia (HCC) [J*09/24/2019 0 11/19/2019 More... Leucocytosis [D72.829] 09/25/2019 11/19/2019 More... Medications Discontinued During This Encounter clopidogrel (PLAVIX) 75 mg tablet 90 t* 3 11/19/2019 03/09/2020 Route: ORAL Sig: Take 1 tablet by mouth once daily. Disc: Course of therapy completed Disposition: Return in about 3 weeks (around 03/30/2020). Follow-up and Disposition History Recorded Encounter Status:Closed by ARON MENA MD on 03/09/20 progress on 2020-02 PROGRESS HNO ID: [id number] Normal 03-08-2020 [facility] Author: Talon Bolaños [place] ([id number]) Service: ? Author Type: Physician Type: Progress Notes Filed: 03/08/2020 4:35 PM Note Text: This note was created using VOZ. Subjective This Team Access Model visit is a phone encounter. It requir ed patient-provider interaction for the medical decision making as documented below. Tye Vazquez's identity was confirmed by The limita tions of telemedicine were reviewed, and verbal consent was obtained for this encounter. This encounter is not related to previous similar encounter within the past 7 days. No face to face visit is planned in the next day in connection to this encounter. Patient presents with: Leg Pain: ER follow up. Tye Vazquez developed progressive right lower extremity p ain, swelling, and discoloration over the past week, especially with weight bearing. Pain got up to 10/10 yesterday, so he went to the ER and was ruled out for deep vein thrombosis. He was diagnosed with Galvan's Cyst and was treated with one [place] and compression. Swelling is down, and pain w as down to 4/10 at this time. He requested some [place] to have on hand j ust in case pain flared up again. He was scheduled to see vascular surgery tomorrow for periph eral vascular disease. Review of Systems Constitutional: Negative for fever. Respiratory: Negative for shortness of breath. Cardiovascular: Positive for leg swelling. Negative for ches t pain and palpitations. Musculoskeletal: Positive for joint swelling and myalgias. Skin: Positive for color change. ACTIVE PROBLEM LIST Esophageal Reflux Mixed Hyperlipidemia Benign Neoplasm of Rectum and Anal Canal Tobacco Use Disorder Prostate Cancer (Hcc) Essential Hypertension Ddd (Degenerative Disc Disease), Lumbar Atherosclerosis of [place] Artery of Left Lower Extremity Wit h Intermittent Claudication (Hcc) Pad (Peripheral Artery Disease) (Hcc) Other Insomnia Current Outpatient Medications Medication Sig - cilostazol (PLETAL) 50 mg tablet Take 2 tablets by mouth t wice daily. - clopidogrel (PLAVIX) 75 mg tablet Take 1 tablet by mouth o nce daily. - amLODIPine (NORVASC) 10 mg tablet Take 1 tablet by mouth o nce daily. - metoprolol tartrate, short acting, (LOPRESSOR) 50 mg table t Take 1 tablet by mouth twice daily. - omeprazole (PRILOSEC) 20 mg capsule Take 1 capsule by mout h once daily. - atorvastatin (LIPITOR) 10 mg tablet Take 1 tablet by mouth once daily. - lisinopril (ZESTRIL, PRINIVIL) 40 mg tablet Take 1 tablet by mouth once daily. - gabapentin (NEURONTIN) 300 mg capsule Take 2 capsules by m outh daily at bedtime for 180 days. - aspirin, enteric coated (ASPIRIN, ENTERIC COATED) 81 mg EC tablet Take 81 mg by mouth once daily. - triamcinolone acetonide (KENALOG) 0.5 % cream Apply 1 appl ication to affected area twice daily. For rash/itching. Apply sparingly . Avoid face/skin fold. No current facility-administered medications for this visit. Objective There were no vitals taken for this visit. He was in no distress. We were unable to establish a video connection. ER report was reviewed and sent for scanning. Assessment and Plan ASSESSMENT/PLAN: 1. Ruptured Bakers cyst - ICD9: 727.51, ICD10: M66.0 Right leg. - HYDROCODONE 5 MG-ACETAMINOPHEN 325 MG TABLET. #6. No refil ls. During this patient visit I have spent approximately 20 danuta buddy out in counseling regarding and coordinating care. MD bennie Sanchez on 2020-03-08 CNPN Telephone (INTMWS) Normal 03-08-2020 [facility] TYE VAZQUEZ ([id number]) 1940 [address] [place] Date Time Provider Department ([id number]) 03/08/20 TALON BOLAÑOS INTJorge LWS During your visit today, we recorded the following informati on about you: Tom Li 03/08/2020 11:29 AM Signed Patient calls requesting pain medication. Says thang loco was in [facility] ER yesterday for c/o right leg pain and swelling. US negative for DVT;s tates he was diagnosed with a Bakers cyst. Per ER record terri cook was given 1 tab of [place] and advised to f/up with ortho. Patient says yesterday pain was severe , this morning he rates it a 4/10. Please advise and call. Talon Bolaños MD 03/08/2020 1:42 PM Signed Virtual visit today. Liv Molina LPN 03/08/2020 1:57 PM Signed Patient scheduled for virtual visit today. Liv Molina LPN Allergies As of Date: 03/08/2020 (No Known Allergies) Date Reviewed: 12/09/2019 Reviewed by: Aron Mena - Fully Assessed Reason for Visit: Medication Request [138] Prescriptions as of 03/08/2020 Sig: CILOSTAZOL 50 MG TABLET Take 2 tablets by mouth twice* CLOPIDOGREL 75 MG TABLET Take 1 tablet by mouth once d* AMLODIPINE 10 MG TABLET Take 1 tablet by mouth once d* METOPROLOL TARTRATE 50 MG TAB* Take 1 tablet by mouth twice * OMEPRAZOLE 20 MG CAPSULE,ROCK* Take 1 capsule by mouth once * ATORVASTATIN 10 MG TABLET Take 1 tablet by mouth once d* LISINOPRIL 40 MG TABLET Take 1 tablet by mouth once d* GABAPENTIN 300 MG CAPSULE Take 2 capsules by mouth dana* ASPIRIN 81 MG TABLET,DELAYED * Take 81 mg by mouth once dana * TRIAMCINOLONE ACETONIDE 0.5 %* Apply 1 application to affect * Problem List As Of Date 03/08/2020 Noted Resolved Dermatophytosis of foot [B35.3] 11/27/2005 06/14/2017 Esophageal reflux [K21.9] 08/29/2006 More... HYPERTENSION NOS [I10] 09/02/2006 03/29/2014 More... Mixed hyperlipidemia [E78.2] 09/02/2006 More... Ganglion of tendon sheath [M67.40] 03/19/2007 11/07/2016 Unspecified disorder of prostate [N42.9] 06/21/2007 09/06/20 14 Inguinal hernia without mention of obstruction *10/11/2008 0 11/07/2016 Umbilical hernia without mention of obstruction*10/11/2008 0 11/07/2016 Rotator cuff (capsule) sprain [S43.429A] 09/20/2009 11/07/19 17 Malignant neoplasm of prostate (HCC) [C61] 02/07/20102016 More... Benign neoplasm of rectum and anal canal [D12.8*05/15/2010 More... Tobacco use disorder [F17.200] 05/23/2010 More... Frequency of urination [R35.0] 10/02/2010 11/07/2016 Prostate cancer [C61] More... Diarrhea [R19.7] 12/05/2010 09/06/2014 Inguinal neuralgia [M79.2] 03/12/2013 11/07/2016 Rotator cuff impingement syndrome of right shou*04/10/2015 0 11/19/2019 Medicare annual wellness visit, subsequent [Z00*04/10/2015 0 06/20/2018 Right-sided low back pain with right-sided scia*10/03/2015 0 05/15/2016 Essential hypertension [I10] 10/16/2015 More... DDD (degenerative disc disease), lumbar [M51.36]11/07/2016 More... Clostridium difficile colitis [A04.72] 05/14/2017 06/20/2018 Inguinal hernia [K40.90] 01/20/2018 06/20/2018 More... Traumatic complete tear of left rotator cuff [S*11/03/2018 0 11/19/2019 More... 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 PAD (peripheral artery disease) (HCC) [I73.9] 09/21/2019 Other insomnia [G47.09] 09/22/2019 More... Anemia [D64.9] 09/24/2019 11/19/2019 More... Acute respiratory failure with hypoxia (HCC) [J*09/24/2019 0 11/19/2019 More... Leucocytosis [D72.829] 09/25/2019 11/19/2019 More... Encounter Status:Closed by LIV MOLINA LPN on 03/08/20 obsolete on 2020-02 OBSOLETE Refill (AGCARDPOB) Normal 02-20-2020 [facility] [place] ([id number]) 1940 M Medical Date Time Provider Department Center 02/20/20 LYNNETTE BEEBE AGCARDPOB ([id number]) During your visit today, we recorded the following informati on about you: Sera Adhikari LPN 02/22/2020 9:47 AM Signed Patient's pharmacy requesting new refill. Refused Prescriptions Disp Refills cyclobenzaprine (FLEXERIL) 10 mg tablet [Pharmacy Med Name : Cyclobenzaprine HCl 10 MG Oral Tablet] 30 tablet 0 Sig: Take 1 tablet by mouth at bedtime as needed for Muscle Spasm. SAY: No Sera Adhikari LPN Allergies As of Date: 02/20/2020 (No Known Allergies) Date Reviewed: 12/09/2019 Reviewed by: Aron Mena - Fully Assessed Reason for Visit: Refill Request [94] Visit Diagnosis:DDD (degenerative disc disease), lumbar [M51 .36] Prescriptions as of 02/20/2020 Sig: CILOSTAZOL 50 MG TABLET Take 2 tablets by mouth twice* CLOPIDOGREL 75 MG TABLET Take 1 tablet by mouth once d* AMLODIPINE 10 MG TABLET Take 1 tablet by mouth once d* METOPROLOL TARTRATE 50 MG TAB* Take 1 tablet by mouth twice * OMEPRAZOLE 20 MG CAPSULE,ROCK* Take 1 capsule by mouth once * ATORVASTATIN 10 MG TABLET Take 1 tablet by mouth once d* LISINOPRIL 40 MG TABLET Take 1 tablet by mouth once d* GABAPENTIN 300 MG CAPSULE Take 2 capsules by mouth dana* ASPIRIN 81 MG TABLET,DELAYED * Take 81 mg by mouth once dana * TRIAMCINOLONE ACETONIDE 0.5 %* Apply 1 application to affect * Problem List As Of Date 02/20/2020 Noted Resolved Dermatophytosis of foot [B35.3] 11/27/2005 06/14/2017 Esophageal reflux [K21.9] 08/29/2006 More... HYPERTENSION NOS [I10] 09/02/2006 03/29/2014 More... Mixed hyperlipidemia [E78.2] 09/02/2006 More... Ganglion of tendon sheath [M67.40] 03/19/2007 11/07/2016 Unspecified disorder of prostate [N42.9] 06/21/2007 09/06/20 14 Inguinal hernia without mention of obstruction *10/11/2008 0 11/07/2016 Umbilical hernia without mention of obstruction*10/11/2008 0 11/07/2016 Rotator cuff (capsule) sprain [S43.429A] 09/20/2009 11/07/19 17 Malignant neoplasm of prostate (HCC) [C61] 02/07/20102016 More... Benign neoplasm of rectum and anal canal [D12.8*05/15/2010 More... Tobacco use disorder [F17.200] 05/23/2010 More... Frequency of urination [R35.0] 10/02/2010 11/07/2016 Prostate cancer [C61] More... Diarrhea [R19.7] 12/05/2010 09/06/2014 Inguinal neuralgia [M79.2] 03/12/2013 11/07/2016 Rotator cuff impingement syndrome of right shou*04/10/2015 0 11/19/2019 Medicare annual wellness visit, subsequent [Z00*04/10/2015 0 06/20/2018 Right-sided low back pain with right-sided scia*10/03/2015 0 05/15/2016 Essential hypertension [I10] 10/16/2015 More... DDD (degenerative disc disease), lumbar [M51.36]11/07/2016 More... Clostridium difficile colitis [A04.72] 05/14/2017 06/20/2018 Inguinal hernia [K40.90] 01/20/2018 06/20/2018 More... Traumatic complete tear of left rotator cuff [S*11/03/2018 0 11/19/2019 More... 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 PAD (peripheral artery disease) (HCC) [I73.9] 09/21/2019 Other insomnia [G47.09] 09/22/2019 More... Anemia [D64.9] 09/24/2019 11/19/2019 More... Acute respiratory failure with hypoxia (HCC) [J*09/24/2019 0 11/19/2019 More... Leucocytosis [D72.829] 09/25/2019 11/19/2019 More... Encounter Status:Closed by SERA ADHIKARI on 02/22/20 cnpn on 2020[facility]02[facility]) Normal 02-19-2020 [place] [facility] TYE VAZQUEZ ([id number]) 1940 [facility] Date Time Provider Department ([id number]) 02/19/20 TALON BOLAÑOS INTMWS During your visit today, we recorded the following informati on about you: Merlene Evans RN 02/19/2020 10:37 AM Signed Jeff from [facility] called, verified pt by arabella stoddard and birthdate. Jeff states he faxed paperwork to PCP to sign for p t's diabetic supplies. Reviewed previous phone/office notes and no documentation of pt being diabetic noted. Jeff states pt called him and requeste d supplied. Jeff states he will call pt and notify him he needs to contact PCP for supp ly orders Merlene Evans RN Allergies As of Date: 02/19/2020 (No Known Allergies) Date Reviewed: 12/09/2019 Reviewed by: Aron Mena - Fully Assessed Reason for Visit: Question [9297] Prescriptions as of 02/19/2020 Sig: CILOSTAZOL 50 MG TABLET Take 2 tablets by mouth twice* CLOPIDOGREL 75 MG TABLET Take 1 tablet by mouth once d* AMLODIPINE 10 MG TABLET Take 1 tablet by mouth once d* METOPROLOL TARTRATE 50 MG TAB* Take 1 tablet by mouth twice * OMEPRAZOLE 20 MG CAPSULE,ROCK* Take 1 capsule by mouth once * ATORVASTATIN 10 MG TABLET Take 1 tablet by mouth once d* LISINOPRIL 40 MG TABLET Take 1 tablet by mouth once d* GABAPENTIN 300 MG CAPSULE Take 2 capsules by mouth dana* ASPIRIN 81 MG TABLET,DELAYED * Take 81 mg by mouth once dana * TRIAMCINOLONE ACETONIDE 0.5 %* Apply 1 application to affect * Problem List As Of Date 02/19/2020 Noted Resolved Dermatophytosis of foot [B35.3] 11/27/2005 06/14/2017 Esophageal reflux [K21.9] 08/29/2006 More... HYPERTENSION NOS [I10] 09/02/2006 03/29/2014 More... Mixed hyperlipidemia [E78.2] 09/02/2006 More... Ganglion of tendon sheath [M67.40] 03/19/2007 11/07/2016 Unspecified disorder of prostate [N42.9] 06/21/2007 09/06/20 14 Inguinal hernia without mention of obstruction *10/11/2008 0 11/07/2016 Umbilical hernia without mention of obstruction*10/11/2008 0 11/07/2016 Rotator cuff (capsule) sprain [S43.429A] 09/20/2009 11/07/19 17 Malignant neoplasm of prostate (HCC) [C61] 02/07/20102016 More... Benign neoplasm of rectum and anal canal [D12.8*05/15/2010 More... Tobacco use disorder [F17.200] 05/23/2010 More... Frequency of urination [R35.0] 10/02/2010 11/07/2016 Prostate cancer [C61] More... Diarrhea [R19.7] 12/05/2010 09/06/2014 Inguinal neuralgia [M79.2] 03/12/2013 11/07/2016 Rotator cuff impingement syndrome of right shou*04/10/2015 0 11/19/2019 Medicare annual wellness visit, subsequent [Z00*04/10/2015 0 06/20/2018 Right-sided low back pain with right-sided scia*10/03/2015 0 05/15/2016 Essential hypertension [I10] 10/16/2015 More... DDD (degenerative disc disease), lumbar [M51.36]11/07/2016 More... Clostridium difficile colitis [A04.72] 05/14/2017 06/20/2018 Inguinal hernia [K40.90] 01/20/2018 06/20/2018 More... Traumatic complete tear of left rotator cuff [S*11/03/2018 0 11/19/2019 More... 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 PAD (peripheral artery disease) (HCC) [I73.9] 09/21/2019 Other insomnia [G47.09] 09/22/2019 More... Anemia [D64.9] 09/24/2019 11/19/2019 More... Acute respiratory failure with hypoxia (HCC) [J*09/24/2019 0 11/19/2019 More... Leucocytosis [D72.829] 09/25/2019 11/19/2019 More... Encounter Status:Closed by MERLENE EVANS RN on 02/19/20 cnpn on 2020-02-02 CNPN Telephone (INTMWS) Normal 02-02-2020 [place] [facility] TYE VAZQUEZ ([id number]) 1940 M [place] Date Time Provider Department ([id number]) 02/02/20 TALON BOLAÑOS INTMWS During your visit today, we recorded the following informati on about you: Merlene Evans RN 02/02/2020 2:58 PM Signed Rep from [facility] call ed, verified pt by name and birthdate. Rep wanted to know if paperwork they faxed last week was r eceived. No notes seen in Epic. Rep given PCP's fax number, will refax informa tion Merlene Benson Pss 02/08/2020 2:15 PM Signed Rep from [facility] called again jannet costello if the form had been received in the office. Plea se disregard any form that comes from this pharmacy or medical supply place as they are saying patient is reques ting diabetic supplies and patient is not a diabetic a t least not diagnosed by our facility. PSS asked what the form was for and the rep told her that it was for diabetic supplies patient is not diabetic. Be on the lookout for the forms. Allergies As of Date: 02/02/2020 (No Known Allergies) Date Reviewed: 12/09/2019 Reviewed by: Aron Mena - Fully Assessed Reason for Visit: Question [8557] Prescriptions as of 02/02/2020 Sig: CILOSTAZOL 50 MG TABLET Take 2 tablets by mouth twice* CLOPIDOGREL 75 MG TABLET Take 1 tablet by mouth once d* AMLODIPINE 10 MG TABLET Take 1 tablet by mouth once d* METOPROLOL TARTRATE 50 MG TAB* Take 1 tablet by mouth twice * OMEPRAZOLE 20 MG CAPSULE,ROCK* Take 1 capsule by mouth once * ATORVASTATIN 10 MG TABLET Take 1 tablet by mouth once d* LISINOPRIL 40 MG TABLET Take 1 tablet by mouth once d* GABAPENTIN 300 MG CAPSULE Take 2 capsules by mouth dana* ASPIRIN 81 MG TABLET,DELAYED * Take 81 mg by mouth once dana * TRIAMCINOLONE ACETONIDE 0.5 %* Apply 1 application to affect * Problem List As Of Date 02/02/2020 Noted Resolved Dermatophytosis of foot [B35.3] 11/27/2005 06/14/2017 Esophageal reflux [K21.9] 08/29/2006 More... HYPERTENSION NOS [I10] 09/02/2006 03/29/2014 More... Mixed hyperlipidemia [E78.2] 09/02/2006 More... Ganglion of tendon sheath [M67.40] 03/19/2007 11/07/2016 Unspecified disorder of prostate [N42.9] 06/21/2007 09/06/20 14 Inguinal hernia without mention of obstruction *10/11/2008 0 11/07/2016 Umbilical hernia without mention of obstruction*10/11/2008 0 11/07/2016 Rotator cuff (capsule) sprain [S43.429A] 09/20/2009 11/07/19 17 Malignant neoplasm of prostate (HCC) [C61] 02/07/20102016 More... Benign neoplasm of rectum and anal canal [D12.8*05/15/2010 More... Tobacco use disorder [F17.200] 05/23/2010 More... Frequency of urination [R35.0] 10/02/2010 11/07/2016 Prostate cancer [C61] More... Diarrhea [R19.7] 12/05/2010 09/06/2014 Inguinal neuralgia [M79.2] 03/12/2013 11/07/2016 Rotator cuff impingement syndrome of right shou*04/10/2015 0 11/19/2019 Medicare annual wellness visit, subsequent [Z00*04/10/2015 0 06/20/2018 Right-sided low back pain with right-sided scia*10/03/2015 0 05/15/2016 Essential hypertension [I10] 10/16/2015 More... DDD (degenerative disc disease), lumbar [M51.36]11/07/2016 More... Clostridium difficile colitis [A04.72] 05/14/2017 06/20/2018 Inguinal hernia [K40.90] 01/20/2018 06/20/2018 More... Traumatic complete tear of left rotator cuff [S*11/03/2018 0 11/19/2019 More... 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 PAD (peripheral artery disease) (HCC) [I73.9] 09/21/2019 Other insomnia [G47.09] 09/22/2019 More... Anemia [D64.9] 09/24/2019 11/19/2019 More... Acute respiratory failure with hypoxia (HCC) [J*09/24/2019 0 11/19/2019 More... Leucocytosis [D72.829] 09/25/2019 11/19/2019 More... Encounter Status:Closed by MERLENE EVANS RN on 02/02/20 obsolete on 2020-01 OBSOLETE Refill (AGCARDPOB) Normal 01-28-2020 [facility] VAZQUEZ[facility] ([id number]) 1940 M Medical Date Time Provider Department Center 01/28/20 LYNNETTE BEEBE ([id number]) During your visit today, we recorded the following informati on about you: Lula Herrera 01/29/2020 8:35 AM Signed Patient's request for medication is as follows: Refused Prescriptions Disp Refills cyclobenzaprine (FLEXERIL) 10 mg tablet [Pharmacy Med Name : Cyclobenzaprine HCl 10 MG Oral Tablet] 30 tablet 0 Sig: TAKE 1 TABLET BY MOUTH AT BEDTIME NEEDED FOR MUSCLE SPASM SAY: No Refused By: LULA HERRERA Reason for Refusal: A Refill not appropriate Prescription(s) as above. Please process accordingly. Lula Herrera Allergies As of Date: 01/28/2020 (No Known Allergies) Date Reviewed: 12/09/2019 Reviewed by: Aron Mena - Fully Assessed Reason for Visit: Refill Request [94] Visit Diagnosis:DDD (degenerative disc disease), lumbar [M51 .36] Prescriptions as of 01/28/2020 Sig: CILOSTAZOL 50 MG TABLET Take 2 tablets by mouth twice* CLOPIDOGREL 75 MG TABLET Take 1 tablet by mouth once d* AMLODIPINE 10 MG TABLET Take 1 tablet by mouth once d* METOPROLOL TARTRATE 50 MG TAB* Take 1 tablet by mouth twice * OMEPRAZOLE 20 MG CAPSULE,ROCK* Take 1 capsule by mouth once * ATORVASTATIN 10 MG TABLET Take 1 tablet by mouth once d* LISINOPRIL 40 MG TABLET Take 1 tablet by mouth once d* GABAPENTIN 300 MG CAPSULE Take 2 capsules by mouth dana* ASPIRIN 81 MG TABLET,DELAYED * Take 81 mg by mouth once dana * TRIAMCINOLONE ACETONIDE 0.5 %* Apply 1 application to affect * Problem List As Of Date 01/28/2020 Noted Resolved Dermatophytosis of foot [B35.3] 11/27/2005 06/14/2017 Esophageal reflux [K21.9] 08/29/2006 More... HYPERTENSION NOS [I10] 09/02/2006 03/29/2014 More... Mixed hyperlipidemia [E78.2] 09/02/2006 More... Ganglion of tendon sheath [M67.40] 03/19/2007 11/07/2016 Unspecified disorder of prostate [N42.9] 06/21/2007 09/06/20 14 Inguinal hernia without mention of obstruction *10/11/2008 0 11/07/2016 Umbilical hernia without mention of obstruction*10/11/2008 0 11/07/2016 Rotator cuff (capsule) sprain [S43.429A] 09/20/2009 11/07/19 17 Malignant neoplasm of prostate (HCC) [C61] 02/07/20102016 More... Benign neoplasm of rectum and anal canal [D12.8*05/15/2010 More... Tobacco use disorder [F17.200] 05/23/2010 More... Frequency of urination [R35.0] 10/02/2010 11/07/2016 Prostate cancer [C61] More... Diarrhea [R19.7] 12/05/2010 09/06/2014 Inguinal neuralgia [M79.2] 03/12/2013 11/07/2016 Rotator cuff impingement syndrome of right shou*04/10/2015 0 11/19/2019 Medicare annual wellness visit, subsequent [Z00*04/10/2015 0 06/20/2018 Right-sided low back pain with right-sided scia*10/03/2015 0 05/15/2016 Essential hypertension [I10] 10/16/2015 More... DDD (degenerative disc disease), lumbar [M51.36]11/07/2016 More... Clostridium difficile colitis [A04.72] 05/14/2017 06/20/2018 Inguinal hernia [K40.90] 01/20/2018 06/20/2018 More... Traumatic complete tear of left rotator cuff [S*11/03/2018 0 11/19/2019 More... 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 PAD (peripheral artery disease) (HCC) [I73.9] 09/21/2019 Other insomnia [G47.09] 09/22/2019 More... Anemia [D64.9] 09/24/2019 11/19/2019 More... Acute respiratory failure with hypoxia (HCC) [J*09/24/2019 0 11/19/2019 More... Leucocytosis [D72.829] 09/25/2019 11/19/2019 More... Encounter Status:Closed by DEBBIE LULA on 01/29/20 progress on 2019-11 PROGRESS HNO ID: [id number] Normal [facility] Author: Aron Mena [place] ([id number]) Service: ? Author Type: Physician Type: Progress Notes Filed: 12/09/2019 2:23 PM Note Text: [facility] OUTPATIENT VISIT DATE December 09, 2019 OUTPATIENT VISIT TYPE ESTABLISHED PRIMARY CARE PHYSICIAN: Talon Bolaños MD [address] [place] [address] REFERRING PHYSICIAN SELF CHIEF COMPLAINT: Patient presents with: Established Patient Follow-Up HISTORY OF PRESENT ILLNESS: Mr. Vazquez is a 79 year old male who is seen today for follo w up evaluation s/p left common, superficial and profunda femoris endarterectomy and patch angioplasty 09/2019. Known history of left popliteal artery occlusion. He has not followed up in the office since his surgery. He has doing well. He is able to walk 1/2 miles without havi ng to stop. His complaint is that his left foot feels cooler than the ri ght. Notes numbness by the left thigh, just distal to the surgical inci rashawn. Smokes, however down to 1-2 cigarettes per day. PAST MEDICAL HISTORY Diagnosis Date - Benign neoplasm of colon - Benign neoplasm of rectum and anal canal - Clostridium difficile colitis 05/14/2017 - DDD (degenerative disc disease), lumbar 11/07/2016 - Diarrhea - Esophageal reflux 08/29/2006 - Essential hypertension, benign - Inguinal hernia without mention of obstruction or gangrene , unilateral or unspecified, (not specified as recurrent) 10/11/2008 - Mixed hyperlipidemia 09/02/2006 - Nonspecific (abnormal) findings on radiological and other examination of abdominal area, including retroperitoneum - PAD (peripheral artery disease) (HCC) - Prostate cancer (HCC) - 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. - Umbilical hernia without mention of obstruction or gangren e 10/11/2008 PAST SURGICAL HISTORY Procedure Laterality Date - COLONOSCOP W/ OR W/O [facility] SPEC 04/26/2014 Colonoscopy - COLONOSCOP W/ OR W/O [facility] SPEC 05/07/16 Colonoscopy - COLONOSCOPY AND POLYPECTOMY 05/15/10 tubular adenomas removed- [place] - LAMINECTOMY,>2 SGMT,LUMBAR 06/11/2018 [facility] - PAST SURGICAL HISTORY OF 2001 bilat cataracts, retina - RECONSTRUCT PROX HUMERAL IMPLANT Right 1993 Arthroplasty, shoulder right x 2. 1991, 1993. - REPAIR ING HERNIA,5+Y/O,REDUCIBL 11/26/2008 left - REPAIR ING HERNIA,5+Y/O,REDUCIBL 01/20/2018 Hernia repair, inguinal right, indirect w/medium mesh plug [facility] - REPAIR UMBILICAL ALBERT,5+Y/O,REDUC 11/26/2008 - SEED IMPLANT 05/2010 for prostate cancer - SIGMOIDOSCOPY FLEX DIAG 12/05/10 SOCIAL HISTORY Social History Tobacco Use - Smoking status: Current Every Day Smoker Years: 30.00 Types: Cigarettes - Smokeless tobacco: Never Used - Tobacco comment: 2-3 per day Substance Use Topics - Alcohol use: Yes Alcohol/week: 7.5 standard drinks Types: 3 Glasses of Wine (5oz) per week Comment: 1/2 oz at night - Drug use: No FAMILY HISTORY Problem Relation Age of Onset - Diabetes Brother skin cancer - Prostate Cancer Brother - Stroke Mother - Blood Disease Father - Coronary Artery Disease Brother - other (Other) Brother paraplegia ALLERGIES: ALLERGIES No Known Allergies MEDICATIONS: cilostazol (PLETAL) 50 mg tablet Take 2 tablets by mouth twi ce daily. clopidogrel (PLAVIX) 75 mg tablet Take 1 tablet by mouth onc e daily. amLODIPine (NORVASC) 10 mg tablet Take 1 tablet by mouth onc e daily. metoprolol tartrate, short acting, (LOPRESSOR) 50 mg tablet Take 1 tablet by mouth twice daily. omeprazole (PRILOSEC) 20 mg capsule Take 1 capsule by mouth once daily. atorvastatin (LIPITOR) 10 mg tablet Take 1 tablet by mouth o nce daily. lisinopril (ZESTRIL, PRINIVIL) 40 mg tablet Take 1 tablet by mouth once daily. gabapentin (NEURONTIN) 300 mg capsule Take 2 capsules by daily at bedtime for 180 days. aspirin, enteric coated (ASPIRIN, ENTERIC COATED) 81 mg EC t ablet Take 81 mg by mouth once daily. triamcinolone acetonide (KENALOG) 0.5 % cream Apply 1 applic ation to affected area twice daily. For rash/itching. Apply sparingly . Avoid face/skin fold. REVIEW OF SYSTEMS: GENERAL: no acute distress All other ROS: negative I personally interviewed, confirmed and edited the above inf ormation as obtained by others. PHYSICAL EXAMINATION: BP 130/74 (BP Site: Right Arm, BP Position: Sitting, BP Cuff Size: Regular Adult) Pulse 80 Ht 170.2 cm (5' 7) Wt 74.4 kg (164 lb ) BMI 25.69 kg/m? General appearance: alert and cooperative individual, in no acute distress. Coronary: regular rate and regular rhythm Lower Extremities: Feet and toes warm Palp right DP, biphasic left DP CARDIOVASCULAR MEDICINE TESTING: There were no tests performed for review. IMPRESSION/PLAN: Mr. Vazquez is a 79 year old male s/p left femoral endarterec alethea. Encouraged to continue with walking regimen on a daily basis . Encouraged to quit smoking. Cilostazol increased to 100mg BID. Follow up in 3 months with noninvasive studies. MD [place] on 2019-12-09 CNOV Office Visit (VASSMD) Normal 12-09-[address] [place] [address] [facility] TYE VAZQUEZ ([id number]) 1940 M [place] Date Time Provider Department ([id number]) 12/09/19 1:30 PM ARON MENA During your visit today, we recorded the following informati on about you: Pulse Blood pressure Weight Height 80/minute 130/74 74.4 kg 1.702 m Aron Mena MD 12/09/2019 2:23 PM Signed [facility] OUTPATIENT VISIT DATE December 09, 2019 OUTPATIENT VISIT TYPE ESTABLISHED PRIMARY CARE PHYSICIAN: Talon Bolaños MD [address] [place] [address] REFERRING PHYSICIAN SELF CHIEF COMPLAINT: Patient presents with: Established Patient Follow-Up HISTORY OF PRESENT ILLNESS: Mr. Vazquez is a 79 year old male who is seen today for fol low up evaluation s/p left common, superficial and profunda femoris endarterec alethea and patch angioplasty 09/2019. Known history of left popliteal artery occlusion. He has not followed up in the office since his surgery. He has doing well. He is able to walk 1/2 miles without cordero ving to stop. His complaint is that his left foot feels co oler than the right. Notes numbness by the left thigh, just distal to the surgical incision. Smokes, however down to 1-2 cigarettes per day. PAST MEDICAL HISTORY Diagnosis Date - Benign neoplasm of colon - Benign neoplasm of rectum and anal canal - Clostridium difficile colitis 05/14/2017 - DDD (degenerative disc disease), lumbar 11/07/2016 - Diarrhea - Esophageal reflux 08/29/2006 - Essential hypertension, benign - Inguinal hernia without mention of obstruction or gangre ne, unilateral or unspecified, (not specified as recurrent) 10/11/2008 - Mixed hyperlipidemia 09/02/2006 - Nonspecific (abnormal) findings on radiological and other examination of abdominal area, including retroperitoneum - PAD (peripheral artery disease) (HCC) - Prostate cancer (HCC) - 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. - Umbilical hernia without mention of obstruction or gangren e 10/11/2008 PAST SURGICAL HISTORY Procedure Laterality Date - COLONOSCOP W/ OR W/O [facility] SPEC 04/26/2014 Colonoscopy - COLONOSCOP W/ OR W/O [facility] SPEC 05/07/16 Colonoscopy - COLONOSCOPY AND POLYPECTOMY 05/15/10 tubular adenomas removed- [place] - LAMINECTOMY,>2 SGMT,LUMBAR 06/11/2018 [facility] - PAST SURGICAL HISTORY OF 2001 bilat cataracts, retina - RECONSTRUCT PROX HUMERAL IMPLANT Right 1994 Arthroplasty, shoulder right x 2. 1991, 1993. - REPAIR ING HERNIA,5+Y/O,REDUCIBL 11/26/2008 left - REPAIR ING HERNIA,5+Y/O,REDUCIBL 01/20/2018 Hernia repair, inguinal right, indirect w/medium mesh plug [facility] - REPAIR UMBILICAL ALBERT,5+Y/O,REDUC 11/26/2008 - SEED IMPLANT 05/2010 for prostate cancer - SIGMOIDOSCOPY FLEX DIAG 12/05/10 SOCIAL HISTORY Social History Tobacco Use - Smoking status: Current Every Day Smoker Years: 30.00 Types: Cigarettes - Smokeless tobacco: Never Used - Tobacco comment: 2-3 per day Substance Use Topics - Alcohol use: Yes Alcohol/week: 7.5 standard drinks Types: 3 Glasses of Wine (5oz) per week Comment: 1/2 oz at night - Drug use: No FAMILY HISTORY Problem Relation Age of Onset - Diabetes Brother skin cancer - Prostate Cancer Brother - Stroke Mother - Blood Disease Father - Coronary Artery Disease Brother - other (Other) Brother paraplegia ALLERGIES: ALLERGIES No Known Allergies MEDICATIONS: cilostazol (PLETAL) 50 mg tablet Take 2 tablets by mouth twi ce daily. clopidogrel (PLAVIX) 75 mg tablet Take 1 tablet by mouth onc e daily. amLODIPine (NORVASC) 10 mg tablet Take 1 tablet by mouth onc e daily. metoprolol tartrate, short acting, (LOPRESSOR) 50 mg t ablet Take 1 tablet by mouth twice daily. omeprazole (PRILOSEC) 20 mg capsule Take 1 capsule by mouth once daily. atorvastatin (LIPITOR) 10 mg tablet Take 1 tablet by mouth o nce daily. lisinopril (ZESTRIL, PRINIVIL) 40 mg tab let Take 1 tablet by mouth once daily. gabapentin (NEURONTIN) 300 m g capsule Take 2 capsules by mouth daily at bedtime for 180 days. aspirin, enteric coated (ASP IRIN, ENTERIC COATED) 81 mg EC tablet Take 81 mg by mouth once daily. triamcinolone acetonide (KENALOG) 0.5 % cream Ap ply 1 application to affected area twice daily. For rash/itching. Apply sparingly. Avoid f carson/skin fold. REVIEW OF SYSTEMS: GENERAL: no acute distress All other ROS: negative I personally interviewed, confirmed and edited the above inf ormation as obtained by others. PHYSICAL EXAMINATION: BP 130/74 (BP Site: Right Arm, BP Position: Sitting, BP Cuff Size: Regular Adult) Pulse 80 Ht 170.2 cm (5' 7) Wt 74.4 kg (164 lb ) BMI 25.69 kg/m? General appearance: alert and cooperative individual, in n o acute distress. Coronary: regular rate and regular rhythm Lower Extremities: Feet and toes warm Palp right DP, biphasic left DP CARDIOVASCULAR MEDICINE TESTING: There were no tests performed for review. IMPRESSION/PLAN: Mr. Vazquez is a 79 year old male s/p left femoral endarterec alethea. Encouraged to continue with walking regimen on a daily basis . Encouraged to quit smoking. Cilostazol increased to 100mg BID. Follow up in 3 months with noninvasive studies. Aron Mena MD Referring Provider: SELF [[id number]] Allergies As of Date: 12/09/2019 (No Known Allergies) Date Reviewed: 12/09/2019 Reviewed by: Aron Mena - Fully Assessed Reason for Visit: Established Patient Follow-Up [[id number]] Primary Visit Diagnosis:PAD (peripheral artery disease) ([facility] ) [I73.9] Order(s):cilostazol (PLETAL) 50 mg tabletTake 2 tablets by m outh twice daily.Disp: 180 tabletRfl: 3 PVR ANK PRESS W/EXC [facility] [[id number]] Order #: [id number] FUTURE LEG ARTERIAL [facility]IPH [facility] [[id number]] Order #: [id number] FUTURE Prescriptions as of 12/09/2019 Sig: CILOSTAZOL 50 MG TABLET Take 2 tablets by mouth twice* CLOPIDOGREL 75 MG TABLET Take 1 tablet by mouth once d* AMLODIPINE 10 MG TABLET Take 1 tablet by mouth once d* METOPROLOL TARTRATE 50 MG TAB* Take 1 tablet by mouth twice * OMEPRAZOLE 20 MG CAPSULE,ROCK* Take 1 capsule by mouth once * ATORVASTATIN 10 MG TABLET Take 1 tablet by mouth once d* LISINOPRIL 40 MG TABLET Take 1 tablet by mouth once d* GABAPENTIN 300 MG CAPSULE Take 2 capsules by mouth dana* ASPIRIN 81 MG TABLET,DELAYED * Take 81 mg by mouth once dana * TRIAMCINOLONE ACETONIDE 0.5 %* Apply 1 application to affect * Problem List As Of Date 12/09/2019 Noted Resolved Dermatophytosis of foot [B35.3] 11/27/2005 06/14/2017 Esophageal reflux [K21.9] 08/29/2006 More... HYPERTENSION NOS [I10] 09/02/2006 03/29/2014 More... Mixed hyperlipidemia [E78.2] 09/02/2006 More... Ganglion of tendon sheath [M67.40] 03/19/2007 11/07/2016 Unspecified disorder of prostate [N42.9] 06/21/2007 09/06/20 14 Inguinal hernia without mention of obstruction *10/11/2008 0 11/07/2016 Umbilical hernia without mention of obstruction*10/11/2008 0 11/07/2016 Rotator cuff (capsule) sprain [S43.429A] 09/20/2009 11/07/19 17 Malignant neoplasm of prostate (HCC) [C61] 02/07/20102016 More... Benign neoplasm of rectum and anal canal [D12.8*05/15/2010 More... Tobacco use disorder [F17.200] 05/23/2010 More... Frequency of urination [R35.0] 10/02/2010 11/07/2016 Prostate cancer [C61] More... Diarrhea [R19.7] 12/05/2010 09/06/2014 Inguinal neuralgia [M79.2] 03/12/2013 11/07/2016 Rotator cuff impingement syndrome of right shou*04/10/2015 0 11/19/2019 Medicare annual wellness visit, subsequent [Z00*04/10/2015 0 06/20/2018 Right-sided low back pain with right-sided scia*10/03/2015 0 05/15/2016 Essential hypertension [I10] 10/16/2015 More... DDD (degenerative disc disease), lumbar [M51.36]11/07/2016 More... Clostridium difficile colitis [A04.72] 05/14/2017 06/20/2018 Inguinal hernia [K40.90] 01/20/2018 06/20/2018 More... Traumatic complete tear of left rotator cuff [S*11/03/2018 0 11/19/2019 More... 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 PAD (peripheral artery disease) (HCC) [I73.9] 09/21/2019 Other insomnia [G47.09] 09/22/2019 More... Anemia [D64.9] 09/24/2019 11/19/2019 More... Acute respiratory failure with hypoxia (HCC) [J*09/24/2019 0 11/19/2019 More... Leucocytosis [D72.829] 09/25/2019 11/19/2019 More... Prescriptions ordered this encounter Disp Refills Start End CILOSTAZOL 50 MG TABLET 180 * 3 12/09/2019 06/06/2020 Route: ORAL Sig: Take 2 tablets by mouth twice daily. Medications Discontinued During This Encounter cilostazol (PLETAL) 50 mg tablet 180 * 3 11/19/2019 12/09/2019 Route: ORAL Sig: Take 1 tablet by mouth twice daily. Disc: Reason for discontinue is not on file. Disposition: Return in about 3 months (around 03/08/2020). Follow-up and Disposition History Recorded Encounter Status:Closed by ARON MENA MD on 12/09/19 progress on 2019-11 PROGRESS HNO ID: [id number] Normal 11-19-2019 [facility] Author: Talon Bolaños [place] Service: ? ([id number]) Author Type: Physician Type: Progress Notes Filed: 11/19/2019 1:08 PM Note Text: This note was created using [email or web address]. Subjective Tye Vazquez is a 79 year old male. He started cutting LIS INOPRIL HCTZ to one half tablet mid October due to urinary frequency. His hypertension and lipids were controlled. He requested a recommendation fo r exercise at a [employer]. He had no current aches or pains, and was not taking meloxicam. Review of Systems Constitutional: Negative. Negative for chills, fever and une xpected weight change. Respiratory: Negative. Cardiovascular: Negative for chest pain, palpitations and le g swelling. Gastrointestinal: Negative. Genitourinary: Positive for frequency. Negative for difficul ty urinating and dysuria. Musculoskeletal: Negative. Neurological: Negative. 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 - clopidogrel (PLAVIX) 75 mg tablet Take 1 tablet by mouth o nce daily. - aspirin, enteric coated (ASPIRIN, ENTERIC COATED) 81 mg EC tablet Take 81 mg by mouth once daily. - lisinopril (ZESTRIL, PRINIVIL) 20 mg tablet Take 1 tablet by mouth every evening. - lisinopril-hydrochlorothiazide (PRINZIDE,ZESTORETIC) 20-12 .5 mg per tablet Take 1 tablet by mouth every morning. (Patient taking differently: Take 1 tablet by mouth every morning. Patient taking 1/2 tab let every morning. ) - amLODIPine (NORVASC) 10 mg tablet Take 1 tablet by mouth o nce daily. - metoprolol tartrate, short acting, (LOPRESSOR) 50 mg table t Take 1 tablet by mouth twice daily. - cilostazol (PLETAL) 50 mg tablet Take 1 tablet by mouth tw ice daily. - omeprazole (PRILOSEC) 20 mg capsule Take 1 capsule by mout h once daily. - atorvastatin (LIPITOR) 10 mg tablet Take 1 tablet by mouth once daily. - meloxicam (MOBIC) 15 mg tablet Take 1 tablet by mouth once daily as needed (joint pains.). Take with food. - triamcinolone acetonide (KENALOG) 0.5 % cream Apply 1 appl ication to affected area twice daily. For rash/itching. Apply sparingly . Avoid face/skin fold. No current facility-administered medications for this visit. Objective BP 123/67 (BP Site: Left Arm, BP Position: Sitting, BP Cuff Size: Large Adult) Pulse 74 Temp 37.2 ?C (99 ?F) (Temporal Artery) Resp 16 Wt 72.6 kg (160 lb) BMI 25.06 kg/m? Physical Exam Constitutional: General: He is not in acute distress. Eyes: Conjunctiva/sclera: Conjunctivae normal. Cardiovascular: Rate and Rhythm: Normal rate and regular rhythm. Heart sounds: No murmur. No gallop. Pulmonary: Effort: Pulmonary effort is normal. Breath sounds: Normal breath sounds. Musculoskeletal: Right lower leg: No edema. Left lower leg: No edema. Neurological: General: No focal deficit present. Mental Status: He is alert. Gait: Gait normal. Component Latest Ref Rng AND Units 11/17/2019 Protein, Total 6.3 - 8.0 g/dL 7.2 Albumin 3.9 - 4.9 g/dL 4.2 Calcium 8.5 - 10.2 mg/dL 10.0 Bilirubin, Total 0.2 - 1.3 mg/dL 0.4 Alkaline Phosphatase 38 - 113 U/L 91 AST 14 - 40 U/L 19 Glucose 74 - 99 mg/dL 74 BUN 9 - 24 mg/dL 15 Creatinine 0.73 - 1.22 mg/dL 1.11 Sodium 136 - 144 mmol/L 141 Potassium 3.7 - 5.1 mmol/L 3.5 (L) Chloride 97 - 105 mmol/L 104 CO2 22 - 30 mmol/L 24 Anion Gap 9 - 18 mmol/L 13 ALT 10 - 54 U/L 10 eGFR- >60 eGFR-All Other Races . >60 WBC 3.70 - 11.00 k/uL 5.89 RBC 4.20 - 6.00 m/uL 4.35 Hemoglobin 13.0 - 17.0 g/dL 14.1 Hematocrit 39.0 - 51.0 % 42.9 MCV 80.0 - 100.0 fL 98.6 MCH 26.0 - 34.0 pG 32.4 MCHC 30.5 - 36.0 g/dL 32.9 RDW-CV 11.5 - 15.0 % 13.1 Platelet Count 150 - 400 k/uL 280 MPV 9.0 - 12.7 fL 11.1 Absolute nRBC <0.01 k/uL <0.01 Cholesterol, Total <200 mg/dL 134 Triglyceride <150 mg/dL 63 HDL Cholesterol >39 mg/dL 43 LDL Cholesterol <100 mg/dL 78 Non HDL Cholesterol <130 mg/dL 91 Fasting Time hrs 12 VLDL Cholesterol <30 mg/dL 13 TC:HDL Ratio <5.10 3.12 LDL:HDL Ratio <2.54 1.81 Assessment and Plan 1. Essential hypertension - ICD9: 401.9, ICD10: I10 - good control - AMLODIPINE 10 MG TABLET - METOPROLOL TARTRATE 50 MG TABLET - LISINOPRIL 40 MG TABLET. Take one(1) tablet daily. Medicat ion changed from LISINOPRIL HCTZ. 2. PAD (peripheral artery disease) (HCC) - ICD9: 443.9, ICD1 0: I73.9 - CLOPIDOGREL 75 MG TABLET - CILOSTAZOL 50 MG TABLET 3. Gastroesophageal reflux disease, esophagitis presence not specified - ICD9: 530.81, ICD10: K21.9 Controlled. - OMEPRAZOLE 20 MG CAPSULE,DELAYED RELEASE 4. Mixed hyperlipidemia - ICD9: 272.2, ICD10: E78.2 - good control - Continue current medication. - ATORVASTATIN 10 MG TABLET Talon Bolaños MD cnov on 2019-11-19 CNOV Office Visit (INTMWS) Normal 11-19-19 [facility] TYE VAZQUEZ ([id number]) 1940 [address] [place] Date Time Provider Department ([id number]) 11/19/19 11:20 AM TALON BOLAÑOS INTMWS During your visit today, we recorded the following informati on about you: Temperature Pulse Respiration Blood pressure 99 degrees 74/minute 16/minute 123/67 Weight 72.6 kg Talon Bolaños MD 11/19/2019 1:08 PM Signed This note was created using NoteWriter. Subjective Tye Vazquez is a 79 year old male. He started cutting L ISINOPRIL HCTZ to one half tablet mid October due to urinary frequency. His hy pertension and lipids were controlled. He requested a r ecommendation for exercise at a [employer]. He had no current aches or pains, and was not taking meloxicam. Review of Systems Constitutional: Negative. Negative for chills, fever and une xpected weight change. Respiratory: Negative. Cardiovascular: Negative for chest pain, palpitations and le g swelling. Gastrointestinal: Negative. Genitourinary: Positive for frequency. Negative for di fficulty urinating and dysuria. Musculoskeletal: Negative. Neurological: Negative. 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 - clopidogrel (PLAVIX) 75 mg tablet Take 1 tablet by mouth o nce daily. - aspirin, enteric coated (ASPIRIN, ENTE SHARRON COATED) 81 mg EC tablet Take 81 mg by mouth once daily. - lisinopril (ZESTRIL, PRINIVIL) 20 mg tablet Take 1 tablet by mouth every evening. - lisinopril-hydrochlorothiazide (PRINZIDE,ZESTORETIC) 20-12.5 mg per tablet Take 1 tablet by mouth every morning. (Patient taking differ ently: Take 1 tablet by mouth every morning. Patient taking 1/2 tablet rowena ry morning. ) - amLODIPine (NORVASC) 10 mg tablet Take 1 tablet by mouth o nce daily. - metoprolol tartrate, short acting, (LO PRESSOR) 50 mg tablet Take 1 tablet by mouth twice daily. - cilostazol (PLETAL) 50 mg tablet Take 1 tablet by mouth tw ice daily. - omeprazole (PRILOSEC) 20 mg capsule Take 1 capsule by mout h once daily. - atorvastatin (LIPITOR) 10 mg tablet Take 1 tablet by mouth once daily. - meloxicam (MOBIC) 15 mg tablet Take 1 tablet by mout h once daily as needed (joint pains.). Take with food. - triamcinolone acetonide (K ENALOG) 0.5 % cream Apply 1 application to affected area twice daily. For rash/itching. Apply sparingly. Avoid f carson/skin fold. No current facility-administered medications for this visit. Objective BP 123/67 (BP Site: Left Arm, BP Positio n: Sitting, BP Cuff Size: Large Adult) Pulse 74 Temp 37.2 ?C (99 ?F) (Temporal Artery) Resp 1 6 Wt 72.6 kg (160 lb) BMI 25.06 kg/m? Physical Exam Constitutional: General: He is not in acute distress. Eyes: Conjunctiva/sclera: Conjunctivae normal. Cardiovascular: Rate and Rhythm: Normal rate and regular rhythm. Heart sounds: No murmur. No gallop. Pulmonary: Effort: Pulmonary effort is normal. Breath sounds: Normal breath sounds. Musculoskeletal: Right lower leg: No edema. Left lower leg: No edema. Neurological: General: No focal deficit present. Mental Status: He is alert. Gait: Gait normal. Component Latest Ref Rng AND Units 11/17/2019 Protein, Total 6.3 - 8.0 g/dL 7.2 Albumin 3.9 - 4.9 g/dL 4.2 Calcium 8.5 - 10.2 mg/dL 10.0 Bilirubin, Total 0.2 - 1.3 mg/dL 0.4 Alkaline Phosphatase 38 - 113 U/L 91 AST 14 - 40 U/L 19 Glucose 74 - 99 mg/dL 74 BUN 9 - 24 mg/dL 15 Creatinine 0.73 - 1.22 mg/dL 1.11 Sodium 136 - 144 mmol/L 141 Potassium 3.7 - 5.1 mmol/L 3.5 (L) Chloride 97 - 105 mmol/L 104 CO2 22 - 30 mmol/L 24 Anion Gap 9 - 18 mmol/L 13 ALT 10 - 54 U/L 10 eGFR- >60 eGFR-All Other Races . >60 WBC 3.70 - 11.00 k/uL 5.89 RBC 4.20 - 6.00 m/uL 4.35 Hemoglobin 13.0 - 17.0 g/dL 14.1 Hematocrit 39.0 - 51.0 % 42.9 MCV 80.0 - 100.0 fL 98.6 MCH 26.0 - 34.0 pG 32.4 MCHC 30.5 - 36.0 g/dL 32.9 RDW-CV 11.5 - 15.0 % 13.1 Platelet Count 150 - 400 k/uL 280 MPV 9.0 - 12.7 fL 11.1 Absolute nRBC <0.01 k/uL <0.01 Cholesterol, Total <200 mg/dL 134 Triglyceride <150 mg/dL 63 HDL Cholesterol >39 mg/dL 43 LDL Cholesterol <100 mg/dL 78 Non HDL Cholesterol <130 mg/dL 91 Fasting Time hrs 12 VLDL Cholesterol <30 mg/dL 13 TC:HDL Ratio <5.10 3.12 LDL:HDL Ratio <2.54 1.81 Assessment and Plan 1. Essential hypertension - ICD9: 401.9, ICD10: I10 - good control - AMLODIPINE 10 MG TABLET - METOPROLOL TARTRATE 50 MG TABLET - LISINOPRIL 40 MG TABLET. Take one(1) tablet daily. M edication changed from LISINOPRIL HCTZ. 2. PAD (peripheral artery disease) (HCC) - ICD9: 443.9, ICD1 0: I73.9 - CLOPIDOGREL 75 MG TABLET - CILOSTAZOL 50 MG TABLET 3. Gastroesophageal reflux disease, esop hagitis presence not specified - ICD9: 530.81, ICD10: K21.9 Controlled. - OMEPRAZOLE 20 MG CAPSULE,DELAYED RELEASE 4. Mixed hyperlipidemia - ICD9: 272.2, ICD10: E78.2 - good control - Continue current medication. - ATORVASTATIN 10 MG TABLET Talon Bolaños MD Referring Provider: TALON BOLAÑOS [[id number]] Allergies As of Date: 11/19/2019 (No Known Allergies) Date Reviewed: 11/19/2019 Reviewed by: Liv Molina LPN - Fully Assessed Reason for Visit: F/U 3 Month [443] Visit Diagnoses:Essential hypertension [I10] PAD (peripheral artery disease) (HCC) [I73.9] Gastroesophageal reflux disease, esophagitis presence not specified [K21.9] Mixed hyperlipidemia [E78.2] Order(s):clopidogrel (PLAVIX) 75 mg tabletTake 1 tablet by m outh once daily.Disp: 90 tabletRfl: 3 amLODIPine (NORVASC) 10 mg tabletTake 1 tablet by mouth once daily.Disp: 90 tabletRfl: 3 metoprolol tartrate, short acting, (LOPRESSOR) 50 mg tabletT avi 1 tablet by mouth twice daily.Disp: 180 tabletRfl: 3 cilostazol (PLETAL) 50 mg tabletTake 1 tablet by mouth twice daily.Disp: 180 tabletRfl: 3 omeprazole (PRILOSEC) 20 mg capsuleTake 1 capsule by mouth o nce daily.Disp: 90 capsuleRfl: 3 atorvastatin (LIPITOR) 10 mg tabletTake 1 tablet by mouth on ce daily.Disp: 90 tabletRfl: 3 lisinopril (ZESTRIL, PRINIVIL) 40 mg tabletTake 1 tablet by mouth once daily.Disp: 90 tabletRfl: 3 Prescriptions as of 11/19/2019 Sig: CLOPIDOGREL 75 MG TABLET Take 1 tablet by mouth once d* AMLODIPINE 10 MG TABLET Take 1 tablet by mouth once d* METOPROLOL TARTRATE 50 MG TAB* Take 1 tablet by mouth twice * CILOSTAZOL 50 MG TABLET Take 1 tablet by mouth twice * OMEPRAZOLE 20 MG CAPSULE,ROCK* Take 1 capsule by mouth once * ATORVASTATIN 10 MG TABLET Take 1 tablet by mouth once d* GABAPENTIN 300 MG CAPSULE Take 2 capsules by mouth dana* ASPIRIN 81 MG TABLET,DELAYED * Take 81 mg by mouth once dana * TRIAMCINOLONE ACETONIDE 0.5 %* Apply 1 application to affect * LISINOPRIL 40 MG TABLET Take 1 tablet by mouth once d* Problem List As Of Date 11/19/2019 Noted Resolved Dermatophytosis of foot [B35.3] 11/27/2005 06/14/2017 Esophageal reflux [K21.9] 08/29/2006 More... HYPERTENSION NOS [I10] 09/02/2006 03/29/2014 More... Mixed hyperlipidemia [E78.2] 09/02/2006 More... Ganglion of tendon sheath [M67.40] 03/19/2007 11/07/2016 Unspecified disorder of prostate [N42.9] 06/21/2007 09/06/20 14 Inguinal hernia without mention of obstruction *10/11/2008 0 11/07/2016 Umbilical hernia without mention of obstruction*10/11/2008 0 11/07/2016 Rotator cuff (capsule) sprain [S43.429A] 09/20/2009 11/07/19 17 Malignant neoplasm of prostate (HCC) [C61] 02/07/20102016 More... Benign neoplasm of rectum and anal canal [D12.8*05/15/2010 More... Tobacco use disorder [F17.200] 05/23/2010 More... Frequency of urination [R35.0] 10/02/2010 11/07/2016 Prostate cancer [C61] More... Diarrhea [R19.7] 12/05/2010 09/06/2014 Inguinal neuralgia [M79.2] 03/12/2013 11/07/2016 Rotator cuff impingement syndrome of right shou*04/10/2015 0 11/19/2019 Medicare annual wellness visit, subsequent [Z00*04/10/2015 0 06/20/2018 Right-sided low back pain with right-sided scia*10/03/2015 0 05/15/2016 Essential hypertension [I10] 10/16/2015 More... DDD (degenerative disc disease), lumbar [M51.36]11/07/2016 More... Clostridium difficile colitis [A04.72] 05/14/2017 06/20/2018 Inguinal hernia [K40.90] 01/20/2018 06/20/2018 More... Traumatic complete tear of left rotator cuff [S*11/03/2018 0 11/19/2019 More... 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 PAD (peripheral artery disease) (HCC) [I73.9] 09/21/2019 Other insomnia [G47.09] 09/22/2019 More... Anemia [D64.9] 09/24/2019 11/19/2019 More... Acute respiratory failure with hypoxia (HCC) [J*09/24/2019 0 11/19/2019 More... Leucocytosis [D72.829] 09/25/2019 11/19/2019 More... Prescriptions ordered this encounter Disp Refills Start End CLOPIDOGREL 75 MG TABLET 90 t* 3 11/19/2019 Route: ORAL Sig: Take 1 tablet by mouth once daily. AMLODIPINE 10 MG TABLET 90 t* 3 11/19/2019 Route: ORAL Sig: Take 1 tablet by mouth once daily. METOPROLOL TARTRATE 50 MG TABLET 180 * 3 11/19/2019 Route: ORAL Sig: Take 1 tablet by mouth twice daily. CILOSTAZOL 50 MG TABLET 180 * 3 11/19/2019 02/17/2020 Route: ORAL Sig: Take 1 tablet by mouth twice daily. OMEPRAZOLE 20 MG CAPSULE,DELAYED REL* 90 c* 3 11/19/2019 Route: ORAL Sig: Take 1 capsule by mouth once daily. ATORVASTATIN 10 MG TABLET 90 t* 3 11/19/2019 Route: ORAL Sig: Take 1 tablet by mouth once daily. LISINOPRIL 40 MG TABLET 90 t* 3 11/19/2019 Route: ORAL Sig: Take 1 tablet by mouth once daily. Medications Discontinued During This Encounter lisinopril (ZESTRIL, PRINIVIL) 20 mg* 7 ta* 0 09/09/201911/19 Route: ORAL Sig: Take 1 tablet by mouth every evening. Disc: Reason for discontinue is not on file. meloxicam (MOBIC) 15 mg tablet 30 t* 1 06/01/2019 11/19/2019 Route: ORAL Sig: Take 1 tablet by mouth once daily as needed (joint pains.). Take with food. Disc: Course of therapy completed lisinopril-hydrochlorothiazide (PRIN* 7 ta* 0 09/09/201911/19 Route: ORAL Sig: Take 1 tablet by mouth every morning. Patient taking differently: Take 1 tablet by mouth every morning. Patient taking 1/2 tablet every morning. Disc: Changing Therapy/Dosage Form clopidogrel (PLAVIX) 75 mg tablet 7 ta* 0 10/06/2019 0 Class: Med Update Route: ORAL Sig: Take 1 tablet by mouth once daily. Disc: Reason for discontinue is not on file. amLODIPine (NORVASC) 10 mg tablet 7 ta* 0 09/09/2019 0 Route: ORAL Sig: Take 1 tablet by mouth once daily. Disc: Reason for discontinue is not on file. metoprolol tartrate, short acting, (* 14 t* 0 09/09/201911/19 Route: ORAL Sig: Take 1 tablet by mouth twice daily. Disc: Reason for discontinue is not on file. cilostazol (PLETAL) 50 mg tablet 14 t* 0 09/09/2019 11/19/2019 Route: ORAL Sig: Take 1 tablet by mouth twice daily. Disc: Reason for discontinue is not on file. omeprazole (PRILOSEC) 20 mg capsule 7 ca* 0 09/09/2019 020 Route: ORAL Sig: Take 1 capsule by mouth once daily. Disc: Reason for discontinue is not on file. atorvastatin (LIPITOR) 10 mg tablet 7 ta* 0 09/09/2019 020 Route: ORAL Sig: Take 1 tablet by mouth once daily. Disc: Reason for discontinue is not on file. Disposition: Return in about 6 months (around 05/19/2020). Follow-up and Disposition History Recorded Letter Text Encounter Status:Closed by TALON BOLAÑOS MD on 11/19/19 lipid panel, basic on 2019-11-17 Cholesterol [Mass/Vol] 134 <200 mg/dL Normal [facility] ([id number]) Comment: Result Comment: <200 mg/dL, Desirable 200-239 mg/dL, Borderline hi gh >239 mg/dL, High Performed By: #### CMP, LIPB , CBC ####[place] [address] [phone] Cholesterol in HDL 43 >39 mg/dL Normal 11-17-2019 [facility] [Mass/Vol] ([id number]) Comment: Result Comment: 40-59 mg/dL, Acceptable >59 mg/dL, High: Negative ri sk factor for coronary heart disease <40 mg/dL, Low: Positive ris k factor for coronary heart disease Performed By: #### CMP, LIPB , CBC ####[place] [address] [phone] Cholesterol in LDL 78 <100 mg/dL Normal 11-17-2019 [facility] [Mass/Vol] [facility] ([id number]) Comment: Result Comment: <100 mg/dL, Optimal 100-129 mg/dL, Near optimal/ above optimal 130-159 mg/dL, Borderline hi gh 160-189 mg/dL, High >189 mg/dL, Very high Secondary prevention optimal LDL Cholesterol levels are recommended to be < 70 mg/dL Performed By: #### CMP, LIPB , CBC ####[place] [address] [phone] Fasting Time 12 hrs Normal 11-17-2019 [facility] ([id number]) Comment: Performed By: #### CMP, LIPB , CBC ####[place] [address] [phone] LDL:HDL Ratio 1.81 <2.54 Normal 11-17-2019 [facility] ([id number]) Comment: Result Comment: Reference: 1. National Cholesterol Educ ation Program ATP III Guideline At-A-Glance Quick Desk Reference: National Heart, Lung, and Blood [place]. National Institutes of Health. 2001: NIH Publication No. 01-3305. 2. An International Atherosc lerosis Society position paper: global recommendations for the management of dyslipidemia: executive summary, Atherosclerosis. 2014: 232(2):410-413. Performed By: #### CMP, LIPB , CBC ####[place] [id number] [place] [address] [phone] Non HDL Cholesterol 91 <130 mg/dL Normal 11-17-2019 [facility] ([id number]) Comment: Result Comment: <130 mg/dL, Optimal 130-159 mg/dL, Near optimal/ above optimal 160-189 mg/dL, Borderline hi gh 190-219 mg/dL, High >219 mg/dL, Very high Secondary prevention optimal non HDL Cholesterol levels are recommended to be < 100 mg/dL Performed By: #### CMP, LIPB , CBC ####[place] [address] [phone] TC:HDL Ratio 3.12 <5.10 Normal 11-17-2019 [facility] ([id number]) Comment: Performed By: #### CMP, LIPB , CBC ####[place] [address] [phone] Triglyceride [Mass/Vol] 63 <150 mg/dL Normal 2019 [facility] ([id number]) Comment: Result Comment: <150 mg/dL, Normal 150-199 mg/dL, Borderline hi gh 200-499 mg/dL, High >499 mg/dL, Very high Performed By: #### CMP, LIPB , CBC ####[place] [address] [phone] VLDL Cholesterol 13 <30 mg/dL Normal 11-17-2019 [facility] ([id number]) Comment: Performed By: #### CMP, LIPB , CBC ####[place] [address] [phone] comp metabolic panel on 2019-11-17 Albumin [Mass/Vol] 4.2 3.9-4.9 g/dL Normal 11-17-2019 [facility] ([id number]) Comment: Performed By: #### CMP, LIPB , CBC ####[place] [address] ALP [Catalytic activity/Vol] 91 38-113 U/L Normal 0 11-17-2019 [facility] ([id number]) Comment: Performed By: #### CMP, LIPB , CBC ####[place] [address] ALT [Catalytic activity/Vol] 10 10-54 U/L Normal 0 11-17-2019 [facility] ([id number]) Comment: Performed By: #### CMP, LIPB , CBC ####[place] [address] [phone] Anion gap [Moles/Vol] 13 9-18 mmol/L Normal 11-17-19 20 [facility] ([id number]) Comment: Performed By: #### CMP, LIPB , CBC ####[place] [address] [phone] AST [Catalytic activity/Vol] 19 14-40 U/L Normal 0 11-17-2019 [facility] ([id number]) Comment: Performed By: #### CMP, LIPB , CBC ####[place] [address] [phone] Bilirubin [Mass/Vol] 0.4 0.2-1.3 mg/dL Normal 0 [facility] (18889) Comment: Performed By: #### CMP, LIPB , CBC ####[place] [address] [phone] Calcium [Mass/Vol] 10.0 8.5-10.2 mg/dL Normal 11-17-2019 [facility] (25691) Comment: Performed By: #### CMP, LIPB , CBC ####[place] [address] [phone] Chloride [Moles/Vol] 104 97-105 mmol/L Normal 0 [facility] (36299) Comment: Performed By: #### CMP, LIPB , CBC ####[facility] [address] [address] [phone] CO2 [Moles/Vol] 24 22-30 mmol/L Normal 11-17-2019 [facility] (43793) Comment: Performed By: #### CMP, LIPB , CBC ####[facility] [place] [address] [phone] Creatinine [Mass/Vol] 1.11 0.73-1.22 mg/dL Normal 11-17-19 [facility] (62614) Comment: Performed By: #### CMP, LIPB , CBC ####[place] [address] [address] [place] [address] [phone] eGFR- Amer. >60 Normal 11-17-2019 [facility] (07064) Comment: Performed By: #### CMP, LIPB , CBC ####[facility] [place] [address] [phone] GFR/1.73 sq M predicted >60 mL/min/{1.73_m2} Normal 11-17-2019 [facility] among non-blacks [facility] (03420) (S/P/Bld) [Vol rate/Area] Comment: Result Comment: eGFR (Estima carlita GFR) Units of measure: mL/min/1.73 meters squared eGFR is derived from the ree xpressed MDRD Study equation using the following parameters: serum creatinine, age, gender and race. The creatinine assay has been calibrated to be traceable to IDMS. An eGFR <60 mL/min/1.73m2 fo r >3 months is consistent with chronic kidney disease. Refer to KDOQI guidelines for clinical interpretation. In patients with unstable re nal function, e.g. those with acute kidney injury, the eGFR may not accurately reflect actual GFR. Performed By: #### CMP, LIPB , CBC ####[facility] [address]CAl[address] [place] [address] [phone] Glucose [Mass/Vol] 74 74-99 mg/dL Normal 11-17-2019 [facility] (13770) Comment: Result Comment: The [place] [employer] (ADA) provides guidance for cutoff values for fasting glucose and random glucose. The ADA defines fasting as no caloric intake for at least 8 hours. Fas ting plasma glucose results between 100 to 125 mg/dL indicate increased risk for diabetes (prediabetes). Fasting plasma glucose resul ts greater than or equal to 126 mg/dL meet the criteria for diagnosis of diabetes. In the absence of unequivocal hyperglycemia, results should be confirmed by repeat testing. In a patient with classic s ymptoms of hyperglycemia or hyperglycemic crisis, random plasma glucose results greater than or equal to 200 mg/dL meet the criteria for diagnosis of diabetes. Reference: Standards of [facility] [place] [facility] in Diabetes 2016, [place] [employer]. Diabetes Care. 2016.39(Suppl 1). Performed By: #### CMP, LIPB , CBC ####[place] [address] [phone] Potassium [Moles/Vol] 3.5 3.7-5.1 mmol/L Low 11-17-19 [facility] ([id number]) Comment: Performed By: #### CMP, LIPB , CBC ####[place] [address] [place] [address] [phone] Protein [Mass/Vol] 7.2 6.3-8.0 g/dL Normal 11-17-2019 [facility] (76441) Comment: Performed By: #### CMP, LIPB , CBC ####[place] [address] [place] [address] [phone] Sodium [Moles/Vol] 141 136-144 mmol/L Normal 11-17-2019 [facility] (47822) Comment: Performed By: #### CMP, LIPB , CBC ####[place] [address] [place] [address] [phone] Urea nitrogen [Mass/Vol] 15 9-24 mg/dL Normal 11-17 [facility] (12222) Comment: Performed By: #### CMP, LIPB , CBC ####[place] [address] [address] [place] [address] [phone] cbc on 2019-11-17 Absolute nRBC <0.01 <0.01 Normal 11-17-2019 [facility] (34450) Comment: Performed By: #### CMP, LIPB , CBC ####[address] [place] [address] [phone] Erythrocyte distribution 13.1 11.5-15.0 % Normal 11-17 [facility] width (RBC) [Ratio] [place] (32971) Comment: Performed By: #### CMP, LIPB , CBC ####[address] [place] [address] [phone] Hematocrit (Bld) [Volume 42.9 39.0-51.0 % Normal 11-17 [facility] fraction] [place] (82053) Comment: Performed By: #### CMP, LIPB , CBC ####[place] [address] [phone] Hemoglobin (Bld) 14.1 13.0-17.0 g/dL Normal 11-17-2019 [facility] [Mass/Vol] [place] (43095) Comment: Performed By: #### CMP, LIPB , CBC ####[place] [address] [phone] MCH (RBC) [Entitic mass] 32.4 26.0-34.0 pG Normal 11-17 [facility] (78728) Comment: Performed By: #### CMP, LIPB , CBC ####[address] [address] [phone] MCHC (RBC) [Mass/Vol] 32.9 30.5-36.0 g/dL Normal 11-17-19 [facility] (39001) Comment: Performed By: #### CMP, LIPB , CBC ####[address] [address] [phone] MCV (RBC) [Entitic vol] 98.6 80.0-100.0 fL Normal 11-17 [facility] (94073) Comment: Performed By: #### CMP, LIPB , CBC ####[facility] [place] [address] [phone] Platelet mean volume 11.1 9.0-12.7 fL Normal 0 [facility] (Bld) [Entitic vol] [place] (23838) Comment: Performed By: #### CMP, LIPB , CBC ####[place] [address] [place] [address] [phone] Platelets (Bld) [#/Vol] 280 150-400 k/uL Normal 2019 [facility] (70032) Comment: Performed By: #### CMP, LIPB , CBC ####[place] [address] [phone] RBC (Bld) [#/Vol] 4.35 4.20-6.00 m/uL Normal 11-17-2019 [facility] (85708) Comment: Performed By: #### CMP, LIPB , CBC ####[place] [address] [place] [address] [phone] WBC (Bld) [#/Vol] 5.89 3.70-11.00 k/uL Normal 11-17-2019 [facility] (04103) Comment: Performed By: #### CMP, LIPB , CBC ####[place] [address] [place] [address] [phone] progress on 2019-09 PROGRESS HNO ID: [id number] Normal 10-06-2019 [facility] Author: Talon Bolaños [place] Service: ? ([id number]) Author Type: Physician Type: Progress Notes Filed: 10/06/2019 7:25 PM Note Text: Transitional Care Management TCM Eligibility Documentation The following information was gathered during the initial Pa tient Outreach Encounter. Date of Outreach: 09/28/2019 Outreach Attempt 1: Contact Made Date of Discharge 09/26/2019 Some recent data might be hidden Provider Documentation Tye Vazquez is a 79 year old male here today for a follow up to recent hospitalization. I have reviewed the patient's hospital cour se including diagnostic testing performed during this hospitalization, th eir discharge medications, and my assessment and plan with the patient and any family members present at today's visit. HPI: Mr. Vazquez was admitted for left femoral endarterectomy. He was ambulating better. Pain in the toes resolved. There was numb ness noted, expected to be prolonged. Incisional pain was getting better . He was scheduled to have home physical therapy next week. He was on oxygen temporarily, but his home O2 saturations have been in the 92 -96% range. Review of Systems Constitutional: Negative for chills and fever. Respiratory: Negative. Cardiovascular: Negative. Gastrointestinal: Negative. Genitourinary: Negative. Neurological: Negative for dizziness, focal weakness and hea daches. 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 - lisinopril (ZESTRIL, PRINIVIL) 20 mg tablet Take 1 tablet by mouth every evening. - lisinopril-hydrochlorothiazide (PRINZIDE,ZESTORETIC) 20-12 .5 mg per tablet Take 1 tablet by mouth every morning. - amLODIPine (NORVASC) 10 mg tablet Take 1 tablet by mouth o nce daily. - metoprolol tartrate, short acting, (LOPRESSOR) 50 mg table t Take 1 tablet by mouth twice daily. - cilostazol (PLETAL) 50 mg tablet Take 1 tablet by mouth tw ice daily. - omeprazole (PRILOSEC) 20 mg capsule Take 1 capsule by mout h once daily. - atorvastatin (LIPITOR) 10 mg tablet Take 1 tablet by mouth once daily. - gabapentin (NEURONTIN) 300 mg capsule 1 capsule in the mor jamarcus. Continue 2 capsules at bedtime. (Patient taking differently: 2 capsules at bedtime. ) - meloxicam (MOBIC) 15 mg tablet Take 1 tablet by mouth once daily as needed (joint pains.). Take with food. - triamcinolone acetonide (KENALOG) 0.5 % cream Apply 1 appl ication to affected area twice daily. For rash/itching. Apply sparingly . Avoid face/skin fold. - clopidogrel (PLAVIX) 75 mg tablet Take 1 tablet by mouth o nce daily. (Patient not taking: Reported on 10/06/2019 ) No current facility-administered medications for this visit. Vitals BP 142/66 Pulse 64 Temp (Src) 98.5 (Temporal Artery) R johana 18 Wt 161 lb (73.0kg) Physical Exam Constitutional: No distress. Eyes: Conjunctivae are normal. Cardiovascular: Normal heart sounds and intact distal pulses . Exam reveals no gallop. No murmur heard. Pulmonary/Chest: Effort normal and breath sounds normal. Abdominal: Soft. There is no abdominal tenderness. Musculoskeletal: General: Tenderness present. No edema. Neurological: He is alert. Gait normal. Skin: Skin is warm and dry. He is not diaphoretic. No erythe ma. Left groin, proximal medial thigh incision healing well, no s/s of infection. Non specific soft tissue tenderness in medial thi gh. ASSESSMENT/PLAN: 1. S/P vascular surgery - ICD9: V45.89, ICD10: Z98.890 (prim stanley diagnosis) Left femoral endarterectomy healing routinely. 2. DDD (degenerative disc disease), lumbar - ICD9: 722.52, I CD10: M51.36 Chronic low back pain - GABAPENTIN 300 MG CAPSULE 3. Essential hypertension - ICD9: 401.9, ICD10: I10 - suboptimal control - Continue current medication(s) - Reviewed risks of HTN and principles of treatment - Goal of BP <130/80 4. Anemia, unspecified type - ICD9: 285.9, ICD10: D64.9 Monitor - CBC 5. Mixed hyperlipidemia - ICD9: 272.2, ICD10: E78.2 - good control - Continue current medication. - COMP METABOLIC PANEL - LIPID PANEL BASIC 6. PAD (peripheral artery disease) (HCC) - ICD9: 443.9, ICD1 0: I73.9 He stopped clopidogrel for unclear reasons, possibly confusi on from short term refills requested when he forgot his medication during travel. He was instructed to resume all medications listed. Talon Bolaños MD October 06, 2019 12:19 PM cnov on 2019-10-06 CNOV Office Visit (INTMWS) Normal 10-06-20 [place] [facility] TYE VAZQUEZ ([id number]) 1940 M [place] Date Time Provider Department ([id number]) 10/06/19 11:40 AM TALON BOLAÑOS INTMWS During your visit today, we recorded the following informati on about you: Temperature Pulse Respiration Blood pressure 98.5 degrees 64/minute 18/minute 142/66 Weight 73 kg Talon Bolaños MD 10/06/2019 7:25 PM Signed Transitional Care Management TCM Eligibility Documentation The following information was gathered during the initial [facility] Outreach Encounter. Date of Outreach: 09/28/2019 Outreach Attempt 1: Contact Made Date of Discharge 09/26/2019 Some recent data might be hidden Provider Documentation Tye Vazquez is a 79 year old male here today for a follow up to recent hospitalization. I have reviewed the patient's hospital cour se including diagnostic testing performed during this hospitalization, th eir discharge medications, and my assessme nt and plan with the patient and any family members present at today's visit. HPI: Mr. Vazquez was admitted for left femoral endarterectomy. He was ambulating better. Pain in the toes resolved. There was numbness note d, expected to be prolonged. Incisional pain was getting better. He was scheduled to have home physical therapy next week. He was on oxygen temporarily, bu t his home O2 saturations have been in the 92-96% range. Review of Systems Constitutional: Negative for chills and fever. Respiratory: Negative. Cardiovascular: Negative. Gastrointestinal: Negative. Genitourinary: Negative. Neurological: Negative for dizziness, focal weakness and hea daches. 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 - lisinopril (ZESTRIL, PRINIVIL) 20 mg tablet Take 1 tablet by mouth every evening. - lisinopril-hydrochlorothiazide (PRINZIDE,ZESTORETIC) 20-12.5 mg per tablet Take 1 tablet by mouth every morning. - amLODIPine (NORVASC) 10 mg tablet Take 1 tablet by mouth o nce daily. - metoprolol tartrate, short acting, (LO PRESSOR) 50 mg tablet Take 1 tablet by mouth twice daily. - cilostazol (PLETAL) 50 mg tablet Take 1 tablet by mouth tw ice daily. - omeprazole (PRILOSEC) 20 mg capsule Take 1 capsule by mout h once daily. - atorvastatin (LIPITOR) 10 mg tablet Take 1 tablet by mouth once daily. - gabapentin (NEURONTIN) 300 mg capsule 1 capsule in t he morning. Continue 2 capsules at bedtime. (Patient taking differently: 2 capsules at bedtime. ) - meloxicam (MOBIC) 15 mg tablet Take 1 tablet by mout h once daily as needed (joint pains.). Take with food. - triamcinolone acetonide (K ENALOG) 0.5 % cream Apply 1 application to affected area twice daily. For rash/itching. Apply sparingly. Avoid f carson/skin fold. - clopidogrel (PLAVIX) 75 mg tablet Take 1 tablet by mouth once daily. (Patient not taking: Reported on 10/06/2019 ) No current facility-administered medications for this visit. Vitals BP 142/66 Pulse 64 Temp (Src) 98.5 ( Temporal Artery) Resp 18 Wt 161 lb (73.0kg) Physical Exam Constitutional: No distress. Eyes: Conjunctivae are normal. Cardiovascular: Normal heart sounds and intact d istal pulses. Exam reveals no gallop. No murmur heard. Pulmonary/Chest: Effort normal and breath sounds normal. Abdominal: Soft. There is no abdominal tenderness. Musculoskeletal: General: Tenderness present. No edema. Neurological: He is alert. Gait normal. Skin: Skin is warm and dry. He is not diaphoretic. No erythe ma. Left groin, proximal medial thigh incision heali ng well, no s/s of infection. Non specific soft tissue tenderness in medial thigh. ASSESSMENT/PLAN: 1. S/P vascular surgery - ICD9: V45.89, ICD10: Z98.890 (prim stanley diagnosis) Left femoral endarterectomy healing routinely. 2. DDD (degenerative disc disease), lumbar - ICD9: 722.52, I CD10: M51.36 Chronic low back pain - GABAPENTIN 300 MG CAPSULE 3. Essential hypertension - ICD9: 401.9, ICD10: I10 - suboptimal control - Continue current medication(s) - Reviewed risks of HTN and principles of treatment - Goal of BP <130/80 4. Anemia, unspecified type - ICD9: 285.9, ICD10: D64.9 Monitor - CBC 5. Mixed hyperlipidemia - ICD9: 272.2, ICD10: E78.2 - good control - Continue current medication. - COMP METABOLIC PANEL - LIPID PANEL BASIC 6. PAD (peripheral artery disease) (HCC) - ICD9: 443.9, ICD1 0: I73.9 He stopped clopidogrel for unclear reaso ns, possibly confusion from short term refills requested when he forgot his medication during . He was instructed to resume all medications listed. Talon Bolaños MD October 06, 2019 12:19 PM Talon Bolaños MD 10/06/2019 12:40 PM Signed RESUME ALL MEDICATIONS LISTED. Referring Provider: SELF [200] Allergies As of Date: 10/06/2019 (No Known Allergies) Date Reviewed: 10/06/2019 Reviewed by: Liv Molina LPN - Fully Assessed Reason for Visit: Hospital F/U [57] Primary Visit Diagnosis:S/P vascular surgery [Z98.890] Other Visit Diagnoses:DDD (degenerative disc disease), lumba r [M51.36] Essential hypertension [I10] Anemia, unspecified type [D64.9] Mixed hyperlipidemia [E78.2] PAD (peripheral artery disease) (HCC) [I73.9] Order(s):gabapentin (NEURONTIN) 300 mg capsuleTake 2 c apsules by mouth daily at bedtime for 180 days.Disp: Rfl: clopidogrel (PLAVIX) 75 mg tabletTake 1 tablet by mouth once daily.Disp: 7 tabletRfl: 0 CBC [SQCBC] Order #: [id number] FUTURE COMP METABOLIC PANEL [SQCMP] Order #: [id number] FUTURE LIPID PANEL BASIC [SQLIPB] Order #: [id number] FUTURE Prescriptions as of 10/06/2019 Sig: GABAPENTIN 300 MG CAPSULE Take 2 capsules by mouth dana* ASPIRIN 81 MG TABLET,DELAYED * Take 81 mg by mouth once dana * LISINOPRIL 20 MG TABLET Take 1 tablet by mouth every * LISINOPRIL 20 MG-HYDROCHLOROT* Take 1 tablet by mouth every * AMLODIPINE 10 MG TABLET Take 1 tablet by mouth once d* METOPROLOL TARTRATE 50 MG TAB* Take 1 tablet by mouth twice * CILOSTAZOL 50 MG TABLET Take 1 tablet by mouth twice * OMEPRAZOLE 20 MG CAPSULE,ROCK* Take 1 capsule by mouth once * ATORVASTATIN 10 MG TABLET Take 1 tablet by mouth once d* MELOXICAM 15 MG TABLET Take 1 tablet by mouth once d* TRIAMCINOLONE ACETONIDE 0.5 %* Apply 1 application to affect * CLOPIDOGREL 75 MG TABLET Take 1 tablet by mouth once d* Problem List As Of Date 10/06/2019 Noted Resolved Dermatophytosis of foot [B35.3] 11/27/2005 06/14/2017 Esophageal reflux [K21.9] 08/29/2006 More... HYPERTENSION NOS [I10] 09/02/2006 03/29/2014 More... Mixed hyperlipidemia [E78.2] 09/02/2006 More... Ganglion of tendon sheath [M67.40] 03/19/2007 11/07/2016 Unspecified disorder of prostate [N42.9] 06/21/2007 09/06/20 14 Inguinal hernia without mention of obstruction *10/11/2008 0 11/07/2016 Umbilical hernia without mention of obstruction*10/11/2008 0 11/07/2016 Rotator cuff (capsule) sprain [S43.429A] 09/20/2009 11/07/19 17 Malignant neoplasm of prostate (HCC) [C61] 02/07/20102016 More... Benign neoplasm of rectum and anal canal [D12.8*05/15/2010 More... Tobacco use disorder [F17.200] 05/23/2010 More... Frequency of urination [R35.0] 10/02/2010 11/07/2016 Prostate cancer [C61] More... Diarrhea [R19.7] 12/05/2010 09/06/2014 Inguinal neuralgia [M79.2] 03/12/2013 11/07/2016 Rotator cuff impingement syndrome of right shou*04/10/2015 Medicare annual wellness visit, subsequent [Z00*04/10/2015 0 06/20/2018 Right-sided low back pain with right-sided scia*10/03/2015 0 05/15/2016 Essential hypertension [I10] 10/16/2015 More... DDD (degenerative disc disease), lumbar [M51.36]11/07/2016 More... Clostridium difficile colitis [A04.72] 05/14/2017 06/20/2018 Inguinal hernia [K40.90] 01/20/2018 06/20/2018 More... Traumatic complete tear of left rotator cuff [S*11/03/2018 More... 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 PAD (peripheral artery disease) (HCC) [I73.9] 09/21/2019 Other insomnia [G47.09] 09/22/2019 More... Anemia [D64.9] 09/24/2019 More... Acute respiratory failure with hypoxia (HCC) [J*09/24/2019 More... Leucocytosis [D72.829] 09/25/2019 More... Other instructions from your clinician: RESUME ALL MEDICATIONS LISTED. Prescriptions ordered this encounter Disp Refills Start End GABAPENTIN 300 MG CAPSULE 10/06/2019 04/03/2020 Class: Med Update Route: ORAL Sig: Take 2 capsules by mouth daily at bedtime for 180 days. CLOPIDOGREL 75 MG TABLET 7 ta* 0 10/06/2019 Class: Med Update Route: ORAL Sig: Take 1 tablet by mouth once daily. Medications Discontinued During This Encounter gabapentin (NEURONTIN) 300 mg capsule 270 * 3 06/01/201909/14 Si capsule in the morning. Continue 2 capsules at bedtim e. Patient taking differently: 2 capsules at bedtime. Disc: Reason for discontinue is not on file. clopidogrel (PLAVIX) 75 mg tablet 7 ta* 0 09/09/2019 019 Route: ORAL Sig: Take 1 tablet by mouth once daily. Patient not taking: Reported on 10/06/2019 Disc: Reason for discontinue is not on file. Encounter Status:Closed by TALON BOLAÑOS MD on 9 progress on 2019-09 PROGRESS HNO ID: [id number] Normal 09-28-2019 [facility] Author: Jorge L Matias [facility] ([id number]) Service: ? Author Type: ? Type: Progress Notes Filed: 10/01/2019 5:09 PM Note Text: TRANSITION CARE MANAGEMENT (TCM) INITIAL CONTACT Reviewer Sales Outreach Provider Action/FYI: 7 incision left groin. Glued with dressing. Instructed may remove dressing today and shower. Initial contact with patient post discharge, spoke to terri langford Patient identified by name and . TRANSITION CARE MANAGEMENT INITIAL OUTREACH DOCUMENTATION: Date of Outreach: 09/28/2019 Outreach Attempt 1: Contact Made Date of Discharge 09/26/2019 Some recent data might be hidden SUMMARY: -Pt discharged from [facility] on 09-26-19. -Admitted for: Endarectomy femerol left Do you have a hospital follow up appointment with your PCP? Appointment on 10-06-[address] Bolaños. Yes. Remind patient of appointment date, time, and location. If not within 14 calendar days of discharge - please reschedule acc ordingly. MEDICATIONS: Many patients have questions or concerns about their medicat ions once they are home. Were you prescribed any new medications? No Were you told to hold any medications? No Were any of your medications discontinued? No Do you have any questions about getting or taking your medic ations? No Your discharge instructions/After visit Summary (AVS) are im portant in guiding you through the recovery process. Is there anything I might help you understand? No Do you have all the necessary equipment and supplies at home ? Yes Medical records from recent hospitalization: [facility] cnptoutreach on 201 06-25-16 CNPTOUTREA Patient Outreach (INTMWS) Normal 1 11-29-2018 [place] TYE Carey ([id number]) 1940 [facility] Date Time Provider Department ([id number]) 09/28/19 NIKUNJ JUAN (ENVIRONMENTAL SERVICES MANAGER) INTMWS During your visit today, we recorded the following informati on about you: Jorge L Matias RN 10/01/2019 5:09 PM Signed TRANSITION CARE MANAGEMENT (TCM) INITIAL CONTACT Reviewer Sales Outreach Provider Action/FYI: 7 incision left groin. Glued with dressing. Instruct ed may remove dressing today and shower. Initial contact with patient post discharge, spoke to terri langford Patient identified by name and . TRANSITION CARE MANAGEMENT INITIAL OUTREACH DOCUMENTATION: Date of Outreach: 09/28/2019 Outreach Attempt 1: Contact Made Date of Discharge 09/26/2019 Some recent data might be hidden SUMMARY: -Pt discharged from [facility] on 09-26-19. -Admitted for: Endarectomy femerol left Do you have a hospital follow up appointment with your PCP? Appointment on 10-06-[address] Bolaños. Yes. Remind patient of appointment date, time, a nd location. If not within 14 calendar days of discharge - please reschedule accordingly. MEDICATIONS: Many patients have questions or concerns about their medications once they are home. Were you prescribed any new medications? No Were you told to hold any medications? No Were any of your medications discontinued? No Do you have any questions about getting or taking your medic ations? No Your discharge instructions/After visit Summary (AVS) are important in guiding you through the recovery pro cess. Is there anything I might help you understand? No Do you have all the necessary equipment and supplies at home ? Yes Medical records from recent hospitalization: Epic Allergies As of Date: 09/28/2019 (No Known Allergies) Date Reviewed: 09/26/2019 Reviewed by: Ada (Rn) EMILIANO Friend - Fully Assessed Reason for Visit: TCM [Other] Prescriptions as of 09/28/2019 Sig: OXYCODONE-ACETAMINOPHEN 5 MG-* Take 1 tablet by mouth every * ASPIRIN 81 MG TABLET,DELAYED * Take 81 mg by mouth once dana * LISINOPRIL 20 MG TABLET Take 1 tablet by mouth every * LISINOPRIL 20 MG-HYDROCHLOROT* Take 1 tablet by mouth every * AMLODIPINE 10 MG TABLET Take 1 tablet by mouth once d* METOPROLOL TARTRATE 50 MG TAB* Take 1 tablet by mouth twice * CLOPIDOGREL 75 MG TABLET Take 1 tablet by mouth once d* CILOSTAZOL 50 MG TABLET Take 1 tablet by mouth twice * OMEPRAZOLE 20 MG CAPSULE,ROCK* Take 1 capsule by mouth once * ATORVASTATIN 10 MG TABLET Take 1 tablet by mouth once d* GABAPENTIN 300 MG CAPSULE 1 capsule in the morning. Co* Patient taking differently: 2 capsules at bedtime. MELOXICAM 15 MG TABLET Take 1 tablet by mouth once d* TRIAMCINOLONE ACETONIDE 0.5 %* Apply 1 application to affect * Problem List As Of Date 09/28/2019 Noted Resolved Dermatophytosis of foot [B35.3] 11/27/2005 06/14/2017 Esophageal reflux [K21.9] 08/29/2006 More... HYPERTENSION NOS [I10] 09/02/2006 03/29/2014 More... Mixed hyperlipidemia [E78.2] 09/02/2006 More... Ganglion of tendon sheath [M67.40] 03/19/2007 11/07/2016 Unspecified disorder of prostate [N42.9] 06/21/2007 09/06/20 14 Inguinal hernia without mention of obstruction *10/11/2008 0 11/07/2016 Umbilical hernia without mention of obstruction*10/11/2008 0 11/07/2016 Rotator cuff (capsule) sprain [S43.429A] 09/20/2009 11/07/19 17 Malignant neoplasm of prostate (HCC) [C61] 02/07/20102016 More... Benign neoplasm of rectum and anal canal [D12.8*05/15/2010 More... Tobacco use disorder [F17.200] 05/23/2010 More... Frequency of urination [R35.0] 10/02/2010 11/07/2016 Prostate cancer [C61] More... Diarrhea [R19.7] 12/05/2010 09/06/2014 Inguinal neuralgia [M79.2] 03/12/2013 11/07/2016 Rotator cuff impingement syndrome of right shou*04/10/2015 Medicare annual wellness visit, subsequent [Z00*04/10/2015 0 06/20/2018 Right-sided low back pain with right-sided scia*10/03/2015 0 05/15/2016 Essential hypertension [I10] 10/16/2015 More... DDD (degenerative disc disease), lumbar [M51.36]11/07/2016 More... Clostridium difficile colitis [A04.72] 05/14/2017 06/20/2018 Inguinal hernia [K40.90] 01/20/2018 06/20/2018 More... Traumatic complete tear of left rotator cuff [S*11/03/2018 More... 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 PAD (peripheral artery disease) (HCC) [I73.9] 09/21/2019 Other insomnia [G47.09] 09/22/2019 More... Anemia [D64.9] 09/24/2019 More... Acute respiratory failure with hypoxia (HCC) [J*09/24/2019 More... Leucocytosis [D72.829] 09/25/2019 More... Encounter Status:Closed by YELENA LUCIO on 10/01/19 progress on 2019-09 PROGRESS HNO ID: [id number] Normal 09-26-2019 [facility] ([id number]) Author: Esperanza Farfan Service: Vascular Surgery Author Type: Physician Type: Progress Notes Filed: 09/26/2019 11:38 AM Note Text: [facility] POSTOP PROGRESS NOTE POD: 5 S/P SURGERY: left femoral endarterectomy INTERVAL EVENTS / PERTINENT ROS: No events overnight Subjective Patient c/o: right hip and knee soreness, numbness left medi al thigh. Denies chest pain, shortness of breath, n/v/d. States he marbella lly is not having incisional pain. Objective Patient Vitals for the past 24 hrs: BP Temp Temp src Pulse Resp SpO2 09/26/19 1119 169/73 37 ?C (98.6 ?F) Temporal 63 18 92 % 09/26/19 0752 158/73 36.4 ?C (97.6 ?F) Temporal 69 18 95 % 09/25/19 2308 164/74 ? 09/25/19 2300 172/87 36.7 ?C (98.1 ?F) Temporal Art 82 18 95 % 09/25/19 1930 157/85 36.7 ?C (98.1 ?F) Oral 78 18 94 % 09/25/19 1656 159/70 36.5 ?C (97.7 ?F) Oral 74 18 94 % 09/25/19 1244 131/60 36.3 ?C (97.4 ?F) Oral 65 18 95 % Intake/Output Summary (Last 24 hours) at 09/26/2019 1135 Last data filed at 09/26/2019 0700 Gross per 24 hour Intake ? Output 440 ml Net -440 ml Current Weight: Weight: 75.5 kg (166 lb 7.2 oz) Physical Exam: Neuro: AANDO x 3 moves all extremities with no apparent weak ness CV: Regular Resp: No distress Skin: Skin color, texture, turgor normal, no suspicious rash es or lesions Ext: Trace edema Surgical incisions: clean, dry and intact with provena intac t, good seal, no odor Vasc Exam: Right leg: DP - audible signal and PT - audible s ignal and Left leg: DP - audible signal and PT - audible signal Does the patient have a urinary catheter beyond POD 2? No Lab Data: Invalid input(s): BMP Recent Labs 09/26/19 0651 09/25/19 0606 09/24/19 0606 WBC 7.46 12.88* 10.56 HB 12.2* 13.4 12.3* HCT 35.0* 38.7* 35.9* PLT 237 250 193 MCV 93.8 93.7 94.5 MCH 32.7 32.4 32.4 MPV 10.6 10.8 10.7 RDWCV 11.9 11.9 12.2 Assessment/Plan Peripheral arterial disease s/p femoral endarterectomy -Recommend continue to increase activity -Pain control -Ok for discharge from vascular standpoint SIGNATURE: Esperanza Farfan DO PATIENT NAME: Tye Vazquez DATE: September 26, 2019 TIME: 11:35 AM PAGER/CONTACT #: [phone] nursing prog on 06-25-14 NURSING HNO ID: [id number] Normal 09-26-2019 [place] PROG Author: Ada LantiguaRn) EMILIANO Friend [facility] Service: ? ([id number]) Author Type: Registered Nurse Type: Nursing Progress Note Filed: 09/26/2019 7:49 PM Note Text: Nursing Progress Note Patient Name: Tye Vazquez Patient Location: [id number] Daily Note: 1722 discharge instructions discussed with patient, transpor carlita off unit with all belongings and new prescription in hand. This note was completed by: Ada Friend RN magnesium on 2018-10 Magnesium [Mass/Vol] 2.0 1.7-2.3 mg/dL Normal 9 [facility] ([id number]) Comment: Performed By: #### CBC, BMP, MG1 ####[facility] [address] [place] [address] 0 cnco on 2019-09-26 CNCO Letter Text Normal 09-26-2019 [facility] ([id number]) cbc on 2019-09-26 Erythrocyte distribution 11.9 11.5-15.0 % Normal 09-26 [facility] ([id number]) width (RBC) [Ratio] Comment: Performed By: #### CBC, BMP, MG1 ####[facility] [address] [place] [phone] Hematocrit (Bld) [Volume 35.0 39.0-51.0 % Low 09-26 [facility] ([id number]) fraction] Comment: Performed By: #### CBC, BMP, MG1 ####[facility] [address] [place] [phone] Hemoglobin (Bld) 12.2 13.0-17.0 g/dL Low 09-26-2019 [facility] ([id number]) [Mass/Vol] Comment: Performed By: #### CBC, BMP, MG1 ####[facility] [address] [place] [address] 0 MCH (RBC) [Entitic mass] 32.7 26.0-34.0 pG Normal 09-26 [facility] ([id number]) Comment: Performed By: #### CBC, BMP, MG1 ####[facility] [address] [place] [address] 0 MCHC (RBC) [Mass/Vol] 34.9 30.5-36.0 g/dL Normal 09-26-20 19 [facility] ([id number]) Comment: Performed By: #### CBC, BMP, MG1 ####[place] [address] 0 MCV (RBC) [Entitic vol] 93.8 80.0-100.0 fL Normal 09-26 [facility] (75139) Comment: Performed By: #### CBC, BMP, MG1 ####[place] [address] 0 Platelet mean volume (Bld) 10.6 9.0-12.7 fL Normal [facility] (07759) [Entitic vol] Comment: Performed By: #### CBC, BMP, MG1 ####[place] [address] 0 Platelets (Bld) [#/Vol] 237 150-400 k/uL Normal 2018 [facility] ([id number]) Comment: Performed By: #### CBC, BMP, MG1 ####[facility] [address] [place] [address] 0 RBC (Bld) [#/Vol] 3.73 4.20-6.00 m/uL Low 09-26-2019 [facility] ([id number]) Comment: Performed By: #### CBC, BMP, MG1 ####[facility] [address] [place] [address] 0 WBC (Bld) [#/Vol] 7.46 3.70-11.00 k/uL Normal 09-26-2019 [facility] ([id number]) Comment: Performed By: #### MAYA STEIN, MG1 ####[facility] [address] [place] [phone] case managem on 201 06-25-14 CASE MANAGEM HNO ID: [id number] Normal 09-26-20 [facility] Author: Veronica Alvarado ([place]) ([id number]) Service: Case Management Author Type: Vendor Representatives Type: Care Mgt Progress Note Filed: 09/26/2019 12:37 PM Note Text: CARE MANAGEMENT DISCHARGE NOTE SERVICE DATE: 09/26/2019 SERVICE TIME: 12:35 PM LOS: 5 days Admission Date: 09/21/2019 DISCHARGE ARRANGEMENT (list agency and phone number) Home Care - Nursing and PT Provider: [facility] CAREGIVER ASSESSMENT: Caregiver is ready, willing and able to meet the patient's n eeds as recommended by the inter-professional team? No Patient's transition needs and plan for meeting these needs: patient meets his own needs Does the patient have an acute stroke diagnosis, or has the patient had a stroke during this admission? No HANDOFF COMMUNICATION: Primary Care Physician: Name: Dr. Bolaños Phone: TRANSPORTATION ARRANGEMENTS: Car Family to transprot ADDITIONAL CONTACT RESOURCES: Discharge Information Row Name Admission (Current) from 09/21/2019 in [facility] Agency [facility] Start of Care 09/28/19 Discharge today to home with [facility]. Sent summary of ca re to PCP and HHC. Family to transport. Will schedule own follow up appts. SIGNATURE: ULISES Ken PATIENT NAME: Tye Vazquez DATE: September 26, 2019 TIME: 12:35 PM PAGER/CONTACT #: [phone] basic metabolic panl on 2019-09-26 Anion gap [Moles/Vol] 13 9-18 mmol/L Normal 09-26-20 [facility] ([id number]) Comment: Performed By: #### SARITA, BMP, MG1 ####[facility] [address] [place] [phone] Calcium [Mass/Vol] 8.6 8.5-10.2 mg/dL Normal 09-26-2019 [facility] ([id number]) Comment: Performed By: #### MAYA STEIN, MG1 ####[facility] [address] [place] [address] 0 Chloride [Moles/Vol] 98 97-105 mmol/L Normal 9 [facility] ([id number]) Comment: Performed By: #### CBC BMP, MG1 ####[facility] [address] [place] [address] 0 CO2 [Moles/Vol] 24 22-30 mmol/L Normal 09-26-2019 [facility] ([id number]) Comment: Performed By: #### MAYA STEIN, MG1 ####[facility] [address] [place] [address] 0 Creatinine [Mass/Vol] 0.89 0.73-1.22 mg/dL Normal 09-26-20 19 [facility] ([id number]) Comment: Performed By: #### SARITA BMP, MG1 ####[facility] [address] [place] [address] 0 eGFR- Amer. >60 Normal 09-26-2019 [facility] (02853) Comment: Performed By: #### MAYA STEIN, MG1 ####[facility] [address] [place] [address] 0 GFR/1.73 sq M predicted >60 mL/min/{1.73_m2} Normal 09-26-2019 [facility] among non-blacks MDRD ([id number]) (S/P/Bld) [Vol rate/Area] Comment: Result Comment: eGFR (Estima carlita GFR) Units of measure: mL/min/1.73 meters squared eGFR is derived from the ree xpressed MDRD Study equation using the following parameters: serum creatinine, age, gender and race. The creatinine assay has been calibrated to be traceable to IDMS. An eGFR <60 mL/min/1.73m2 fo r >3 months is consistent with chronic kidney disease. Refer to KDOQI guidelines for clinical interpretation. In patients with unstable re nal function, e.g. those with acute kidney injury, the eGFR may not accurately reflect actual GFR. Performed By: #### MAYA STEIN, MG1 ####[facility] [address] [place] [address] 0 Glucose [Mass/Vol] 92 74-99 mg/dL Normal 09-26-2019 [facility] (11358) Comment: Result Comment: The [place] Diabetes Association (ADA) provides guidance for cutoff values for fasting glucose and random glucose. The ADA defines fasting as no caloric intake for at least 8 hours. Fas ting plasma glucose results between 100 to 125 mg/dL indicate increased risk for diabetes (prediabetes). Fasting plasma glucose resul ts greater than or equal to 126 mg/dL meet the criteria for diagnosis of diabetes. In the absence of unequivocal hyperglycemia, results should be confirmed by repeat testing. In a patient with classic s ymptoms of hyperglycemia or hyperglycemic crisis, random plasma glucose results greater than or equal to 200 mg/dL meet the criteria for diagnosis of diabetes. Reference: Standards of [facility] [place] [facility] in Diabetes 2016, [place] [employer] Association. Diabetes Care. 2016.39(Suppl 1). Performed By: #### MAYA STEIN, MG1 ####[facility] [address] [place] [address] 0 Potassium [Moles/Vol] 3.2 3.7-5.1 mmol/L Low 09-26-20 [facility] (07275) Comment: Performed By: #### MAYA STEIN, MG1 ####[facility] [address] [place] [address] 0 Sodium [Moles/Vol] 135 136-144 mmol/L Low 09-26-2019 [facility] ([id number]) Comment: Performed By: #### MAYA STEIN, MG1 ####[facility] [address] [place] [address] 0 Urea nitrogen [Mass/Vol] 17 9-24 mg/dL Normal 09-26 [facility] (62896) Comment: Performed By: #### MAYA STEIN, MG1 ####[facility] [address] [place] [address] 0 therapy nt on 09-25 THERAPY HNO ID: [id number] Normal 09-25-2019 [facility] Service: Physical Therapy ([id number]) Author Type: Newspaper Columnist Type: Therapy (PT/OT/Speech/Resp) Filed: 09/25/2019 1:27 PM Note Text: Attestation signed by Erin Mcgraw at 10/06/2019 7:5 6 AM I reviewed and agree with the documentation corresponding to this therapy visit. SIGNATURE: Erin Mcgraw PT DATE: October 06, 2019 TIME: 7:56 AM Physical Therapy Treatment SERVICE DATE: 09/25/2019 SERVICE TIME: 1209 to 1236 ROOM: [id number] Recommended Discharge Disposition: Home PT Recommended Discharge Disposition Comments: patient would be nefit from home PT for home safety assessment and to increase strength/safety/tolerance with functional progression Anticipated Discharge Needs: Physical Assist at Home;Supervi rashawn at Home Physical Assist at Home for: Cleaning;Laundry;Meals;Shopping;Transportation Supervision at Home due to: (initially for optimal safety) Recommended Discharge Equipment: No equipment needs anticipa carlita PT Recommendations to Nursing: Ambulate with device;To bathr oom;In halls;Transfer to/from chair;OOB for Meals;With assist of 1 person;Other: See Comment(encourage moiblity/OOB,practice OOB w/o bed adju stments) Device: Wheeled Walker(gait belt) PT 6 Clicks Score: 18 Precautions/Activity Restrictions: Bed/Chair Alarm;Fall Risk;Lines/Tubes/Drains ASSESSMENT : Patient pleasant and motivated to participate with PT. Patie nt successfully able to tolerate gait training, initiate stair training and perform seated exercises with no adverse effects. Patient re quires no more than CGA with all functional mobility and gait training. Allison ient continues to note R hip and knee pain, patient relates pain to positio n in bed. Patient demonstrates good safety awareness and appropriately follows therapist cues. Patient would benefit from continued PT to a ddress strength, balance, endurance and safety deficits. Patient Disposition at Start of Session: OOB in Chair;Call B ell in Reach Patient Disposition at End of Session: OOB in Chair;Call Bel l in Reach Tolerated Full Session Without limitations Physical Therapy Problem List: Pain;Safety Deficits;Decrease d Activity Tolerance;Decreased Range Of Motion;Balance Impaired Patient /Caregiver Goals: Go Home(with Home PT ) Goals for Plan of Care: Able to perform HEP with: Modified Independent(w handout for LE ROM/strength x 10-20 reps) Transfer supine to/from sit with: Independent(to safely barboza sfer to EOB without bed adjustments) Transfer sit to/from stand with: Stand By Assistance Ambulate with: Stand By Assistance Distance: 150-200 feet for safe navigation of home Device: Wheeled Walker Ambulate up and down steps with: Stand By Assistance Number of steps: 3 steps to safely enter home Device: Rail(and LRAD) Goal: patient demonstrates good balance with functional prog ression to decrease risk of falls Progress Toward Goals: Progressing as expected Rehab Potential: Good PLAN: Treatment Frequency (times per week): 4 Current admission Treatment Interventions: Education;Self Care / Home Manageme nt;Energy Conservation Training;Joint Mobility;Strengthening;Functiona l Mobility Training;Balance Training;Neuromuscular Re-education Plan of Care developed with: Patient TREATMENT INTERVENTIONS: Therapy Diagnosis: Reduced mobility-other Interventions Provided: Therapeutic Exercise (41184);Therape utic Activity (27398);Gait Training (60273) Therapeutic Exercise (76860) Treatment Minutes: 10 1 unit Skilled Intervention(s): Instruction in therapeutic exercise for bilateral AP, heel slides, LAQ, slightly resisted isometric hip abduct ion/addduction x 10-15 reps each Verbal and tactile cuing provided for correct performance of exercises Cues for diaphragmatic breathing Re-emphasized the importance of frequent performance of anti -embolic exercises Therapeutic Activity (84337) Treatment Minutes: 2 0 units Skilled Intervention(s): Instruction in sit to stand techniq ue with proper hand placement and body positioning at edge of bed/chair Instruction in stand to sit technique with lower extremities touching chair/bed and reaching back for surface Gait Training (07293) Treatment Minutes: 15 1 unit Skilled Intervention(s): Instruction in sequencing, gait pat tern, reciprocating steps Instruction in correction of gait deviations, cues for uprig ht posture, safety, diaphragmatic breathing Instruction in stair negotiation, [id number]. Instruction in use of equipment, cues for sequence and patte rn Gait belt in place for safety with all functional mobility. RN aware of patient status. Discussed with patient sitting up for no longer than 1 hr an d calling for assistance 100% of the time. Total Timed Code Treatment Minutes: 27 Total Treatment Time (minutes): 27 SUBJECTIVE: Current Hospital Course: Chart reviewed and no significant m edical updates relevant to therapy were noted Reason for Physical Therapy Consult : Patient presents with PAD. Patient admitted with admission Dx: peripheral artery diseas e. s/p L angiography. 09/21/19 s/p endarterectomy. referred to PT for post acute placement Relevant Past Medical History: benign neoplasm of colon, kip ign neoplasm of rectum/anal canal, C diff,DDD,diarrhea,esophageal reflux, HTN,HLD,PAD, rotator curr impingement right shoulder,.traumatic complete tear of left shoulder,laminectomy, prostate CA Patient Report: Patient agreeable and motivated to participa te in PT. Patient states, My R knee and hip still hurt but I think it 's from laying flat on my back for so long with my leg up on a pillow. Pat ient appropriate for PT per Gela CUMMINGS. Home Environment Patient Lives With: Self/Alone Assistance Available: PRN(daughter nearby and might stay wit h him) Entry To Home: Stairs;With Rail Number Of Stairs Into Home: 3 Number Of Stairs To Bed/Bath: 0(single floor set up) Tub/Shower Type: tub/shower with grab bar, shoulder and hand held shower Laundry: basement laundry - daughter to assist Equipment Owned: Cane;Grab Bars-Shower;Grab Bars-Toilet;Hand Held Shower;Wheeled Walker;Standard Walker;Rollator;Shower Chair Prior Functional Level: Within Functional Limits Prior Functional Level Comments: ind wiht amb without device , ADL, IADL's, +drives, denies falls in last 6 months OBJECTIVE: CURRENT FUNCTIONAL STATUS: Current Functional Mobility Assist Level Additional Informat ion Rolling Supine to Sit (patient in bed side chair upon arrival) Sit to Supine (patient in bed side chair at end of treatment ) Scooting Stand By Assistance(forward/retro in chair) Sit to Stand Contact Guard Assistance(with FWW) x1 trial fro m chair Stand to Sit Contact Guard Assistance(with FWW) Bed to Chair Toilet/Commode Gait Contact Guard Assistance(reciprocating steps) Gait Poonam ce: Wheeled Walker Gait Distance (feet): 80'x2 Stairs Contact Guard Assistance(calo-zp-wlit) Stairs Device: Cane;Rail Number of Stairs: 5 Curb Step (NA) Car Transfer Gait Deviations Right Lower Extremity: Weight bearing decrea sed;Heel strike during initial stance decreased;Push-off during termi nal stance decreased;Step length decreased Gait Deviations Left Lower Extremity: Heel strike during ini tial stance decreased;Push-off during terminal stance decreased;Step yaneth gth decreased General Gait Deviations: Anitha decreased;Step length decre ased;Flexed trunk posture Balance: Static Sitting;Dynamic Sitting;Static Standing;Kaylee niya Standing Static Sitting Balance: Good Able to maintain balance agains t moderate resistance Dynamic Sitting Balance: Good Able to sit unsupported AND we ight shift across midline moderately Static Standing Balance: Fair- Requires Min A or UE support in order to stand without LOB Dynamic Standing Balance: Poor+ Able to stand with Min A and reach ipsilaterally, unable to weight shift JH-HLM: 7: Walk 25 feet or more Please see discipline specific clinical documentation [facility] for complete details for this therapy evaluation/treatment. SIGNATURE: Charmaine Espinoza PTA PATIENT NAME: Tye Vazquez DATE: September 25, 2019 TIME: 1:23 PM progress on 2019-09 PROGRESS HNO ID: [id number] Normal 09-25-2019 [facility] Author: Aron Mena ([id number]) Service: Vascular Surgery Author Type: Physician Type: Progress Notes Filed: 09/25/2019 3:16 PM Note Text: [facility] V[facility] POSTOP PROGRESS NOTE POD: 4 S/P SURGERY: left femoral endarterectomy INTERVAL EVENTS / PERTINENT ROS: no events Subjective Patient primary complaint is of right hip and knee stiffness , improving somewhat with activity. Xray of right knee 09/23 Osteoarthrosis with chondrocalcinos is. Getting out of bed, working with PT/OT tolerating diet No BM Objective Patient Vitals for the past 24 hrs: BP Temp Temp src Pulse Resp SpO2 09/25/19 1244 131/60 36.3 ?C (97.4 ?F) Oral 65 18 95 % 09/25/19 0840 ? 96 % 09/25/19 0829 161/75 37.5 ?C (99.5 ?F) Oral 66 18 98 % 09/25/19 0000 161/72 36.9 ?C (98.4 ?F) Temporal Art 79 16 93 % 09/24/19 2013 148/68 36.6 ?C (97.8 ?F) Temporal Art 100 17 9 4 % 09/24/19 1617 138/94 36.5 ?C (97.7 ?F) Oral 67 18 94 % Intake/Output Summary (Last 24 hours) at 09/25/2019 1512 Last data filed at 09/25/2019 0940 Gross per 24 hour Intake 480 ml Output 1000 ml Net -520 ml Current Weight: Weight: 75.5 kg (166 lb 7.2 oz) Physical Exam: Neuro: AANDO Cardiac: regular rate Resp: CTA Ext: prevena in place in left groin No edema appreciated of the right leg or thigh Doppler signal in left DP, palp right DP prevena in place in left groin, intact Lab Data: Invalid input(s): BMP Recent Labs 09/25/19 0606 09/24/19 0606 WBC 12.88* 10.56 HB 13.4 12.3* HCT 38.7* 35.9* PLT 250 193 MCV 93.7 94.5 MCH 32.4 32.4 MPV 10.8 10.7 RDWCV 11.9 12.2 Assessment/Plan POD4 s/p left femoral endarterectomy. Other than his right lower extremity joint stiffness, he is doing well. He wishes to stay an additional day before discharge. Stool softener. Continue with PT/OT, out of bed. ASA, plavix. SCDs. SIGNATURE: Aron Mena MD PATIENT NAME: Tye Vazquez DATE: September 25, 2019 TIME: 3:12 PM PAGER/CONTACT #: [phone] PROGRESS HNO ID: [id number] Normal 09-25-2019 [facility] Author: Edenilson Perera ([id number]) Service: Hospital Medicine Author Type: Physician Type: Progress Notes Filed: 09/25/2019 2:00 PM Note Text: SERVICE DATE: 09/25/2019 SERVICE TIME: 2:00 PM HOSPITAL MEDICINE PROGRESS NOTE NIGHT AND WEEKEND COVERAGE: Nights: Please contact pager [phone]. Hospital Medicine/Primary Attending: Edenilson Perera MD Subjective HPI: From HANDP CHIEF COMPLAINT: PAD, rest pain ? HPI: This is a 79 year old male who presents for left profun da and superficial femoral artery endarterectomy for complaints of left halux rest pain. Underwent cardiac stress test, negative for inducible ischem ia, low risk scan. No new complaints. Interval Events: worked with physical therapy And is exhaust ed Objective BP 131/60 Pulse 65 Temp (Src) 97.4 (Oral) Resp 18 Ht 5' 7 (1.70m) Wt 166 lb 7.2 oz (75.5kg) SpO2 95% BMI 26.06 kg/(m2). O2 Therapy: Room Air, Liters: 4 Physical Exam Performed: GENERAL: : well appearing, alert and in no acute distress HEART: : regular rate and rhythm, no murmer, gallop or rub, normal, S1, S2, no lifts, heaves, or thrills, PMI not displaced LUNGS: : clear to percussion and auscultation and no rales ABDOMEN: : Soft, nontender, bowel sounds normal, no palpable organomegaly, no bruits. EXTREMITY:surgical incision healing well Lines, Drains, and Airways Line Peripheral 09/21/19 0721 Assessment Midline Left Forearm 20 Gauge 4 days Peripheral 09/21/19 0845 Short Right Hand 18 Gauge 4 days Reviewed lines and needs to be continued: REASONS: Intraveno us fluids Medications: Reviewed Diagnostic tests reviewed: Most recent labs Recent Labs 09/25/19 0606 09/24/19 0606 09/22/19 0400 WBC 12.88* 10.56 8.69 RBC 4.13* 3.80* 3.46* HB 13.4 12.3* 11.1* HCT 38.7* 35.9* 32.5* PLT 250 193 187 MCV 93.7 94.5 93.9 MCH 32.4 32.4 32.1 MPV 10.8 10.7 9.8 ABSNEUT -- -- 7.00 NEUTP -- -- 80.5 LYMPHP -- -- 10.4 MONOP -- -- 9.0 EODINP -- -- 0.0 Recent Labs 09/25/19 0606 09/24/19 0606 09/22/19 1952 GLUC 105* 93 121* NA 135* 134* 141 K 4.0 3.6* 3.7 CHLOR 97 96* 103 CO2 27 25 27 CREAT 0.96 0.85 0.84 BUN 21 18 15 ANION 11 13 11 CA 9.5 8.5 8.9 Most recent labs Assessment AND Plan Active Hospital Problems as of 09/25/2019 Noted - Resolved Hospital Esophageal reflux 08/29/2006 - Present Current Assessment AND Plan Assessment: Stable PLAN: Prn Tums Mixed hyperlipidemia 09/02/2006 - Present Current Assessment AND Plan Lab Results Component Value Date HDL 39 (L) 10/21/2018 LDL 60 10/21/2018 TG 67 10/21/2018 On atorvastatin 10 mg due to low HDL Continue home Essential hypertension 10/16/2015 - Present Current Assessment AND Plan Assessment: Stable PLAN: Cont Norvasc, Lisinopril, Metoprolol, HCTZ * (Principal) 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 Mena on 09/21 with Left common, supe rficial and profunda femoral endarterectomy, patch angioplasty. PLAN: oob and up to a chair Cont ASA and Plavix Pain controlled Other insomnia 09/22/2019 - Present Current Assessment AND Plan Assessment: Normally take one small glass of vine at night and benadryl 50mg at bedtime Melatonin didn't work last night PLAN: Cont benadryl 50 mg qHs Anemia 09/24/2019 - Present Current Assessment AND Plan hgb stable Slight drop in hemoglobin after the procedure Secondary to intra op blood loss Acute respiratory failure with hypoxia (HCC) 09/24/2019 - Pr esent Current Assessment AND Plan Was requiring 4 lt of oxygen On room air now Chest x ray was clear Was likely atelectasis Continue incentive spirometry Leucocytosis 09/25/2019 - Present Current Assessment AND Plan Likely reactive No fever, no signs of infection continue to monitor Medication and Non-Pharmacologic VTE Prophylaxis/Anticoagula nts Anticoagulant AND Antiplatelet Medications (From admission, onward) Start Dose Route Frequency Ordered Stop 09/21/19 1530 aspirin, enteric coated 81 mg tab(s) 81 mg ORAL DAILY 09/21/19 1515 -- 09/21/19 1530 clopidogrel 75 mg tab(s) (PLAVIX) 75 mg ORAL DAILY 09/21/19 1515 -- 09/23/19 1045 activity - mobilize patient (fl,oh) 09/21/19 1530 vte pharmacologic prophylaxis contraindicated (fl,oh) 09/21/19 153 vte pharmacologic prophylaxis contraindicated (wi,oh) 09/21/19 153 vte pharmacologic prophylaxis contraindicated (fl,oh) 09/21/19 153 pneumatic compression stockings (wi,oh) 09/21/19 153 pneumatic compression stockings (wi,oh) 09/21/19 153 pneumatic compression stockings (wi,oh) VTE Prophylaxis: VTE prophylaxis appropriate Plan of care discussed with: Patient and RN SIGNATURE: Edenilson Perera MD PATIENT NAME: Tye Vazquez DATE: September 25, 2019 TIME: 2:00 PM PAGER/CONTACT #: [phone] magnesium on 2018-10 Magnesium [Mass/Vol] 2.2 1.7-2.3 mg/dL Normal 9 [facility] ([id number]) Comment: Performed By: #### CBC, BMP, MG1 ####[facility] [address] [place] [phone] cbc on 2019-09-25 Erythrocyte distribution 11.9 11.5-15.0 % Normal 09-25 [facility] ([id number]) width (RBC) [Ratio] Comment: Performed By: #### CBC, BMP, MG1 ####[facility] [address] [place], [place] [phone] Hematocrit (Bld) [Volume 38.7 39.0-51.0 % Low 09-25 [facility] ([id number]) fraction] Comment: Performed By: #### CBC, BMP, MG1 ####[facility] [address] [place], [place] [phone] Hemoglobin (Bld) 13.4 13.0-17.0 g/dL Normal 09-25-2019 [facility] [Mass/Vol] ([id number]) Comment: Performed By: #### CBC, BMP, MG1 ####[facility] [address] [place] [address] 0 MCH (RBC) [Entitic mass] 32.4 26.0-34.0 pG Normal 09-25 [facility] ([id number]) Comment: Performed By: #### CBC, BMP, MG1 ####[facility] [address] [place] [address] 0 MCHC (RBC) [Mass/Vol] 34.6 30.5-36.0 g/dL Normal 09-25-[address] [place] [address] ([id number]) Comment: Performed By: #### CBC, BMP, MG1 ####[place] [address] 0 MCV (RBC) [Entitic vol] 93.7 80.0-100.0 fL Normal 09-25 [facility] ([id number]) Comment: Performed By: #### CBC, BMP, MG1 ####[place] [address] 0 Platelet mean volume (Bld) 10.8 9.0-12.7 fL Normal [facility] ([id number]) [Entitic vol] Comment: Performed By: #### CBC, BMP, MG1 ####[place] [address] 0 Platelets (Bld) [#/Vol] 250 150-400 k/uL Normal 2018 [facility] ([id number]) Comment: Performed By: #### CBC, BMP, MG1 ####[facility] [address] [place] [address] 0 RBC (Bld) [#/Vol] 4.13 4.20-6.00 m/uL Low 09-25-2019 [facility] ([id number]) Comment: Performed By: #### CBC, BMP, MG1 ####[facility] [address] [place] [address] 0 WBC (Bld) [#/Vol] 12.88 3.70-11.00 k/uL High 09-25-2019 [facility] ([id number]) Comment: Performed By: #### MAYA STEIN MG1 ####[facility] [address] [place] [address] 0 basic metabolic panl on 2019-09-25 Anion gap [Moles/Vol] 11 9-18 mmol/L Normal 09-25-20 [facility] ([id number]) Comment: Performed By: #### MAYA STEIN, MG1 ####[facility] [address] [place] [address] 0 Calcium [Mass/Vol] 9.5 8.5-10.2 mg/dL Normal 09-25-2019 [facility] ([id number]) Comment: Performed By: #### MAYA STEIN, MG1 ####[facility] [address] [place] [address] 0 Chloride [Moles/Vol] 97 97-105 mmol/L Normal [facility] (31422) Comment: Performed By: #### MAYA STEIN, MG1 ####[facility] [address] [place] [address] 0 CO2 [Moles/Vol] 27 22-30 mmol/L Normal 09-25-2019 [facility] ([id number]) Comment: Performed By: #### SARITA BMP, MG1 ####[facility] [address] [place] [address] 0 Creatinine [Mass/Vol] 0.96 0.73-1.22 mg/dL Normal 09-25-20 [facility] (43581) Comment: Performed By: #### SARITA, BMP, MG1 ####[facility] [address] [place] [address] 0 eGFR- Amer. >60 Normal 09-25-2019 [facility] ([id number]) Comment: Performed By: #### SARITA, BMP, MG1 ####[facility] [address] [place] [address] 0 GFR/1.73 sq M predicted >60 mL/min/{1.73_m2} Normal 09-25-2019 [facility] among non-blacks MDRD ([id number]) (S/P/Bld) [Vol rate/Area] Comment: Result Comment: eGFR (Estima carlita GFR) Units of measure: mL/min/1.73 meters squared eGFR is derived from the ree xpressed MDRD Study equation using the following parameters: serum creatinine, age, gender and race. The creatinine assay has been calibrated to be traceable to IDMS. An eGFR <60 mL/min/1.73m2 fo r >3 months is consistent with chronic kidney disease. Refer to KDOQI guidelines for clinical interpretation. In patients with unstable re nal function, e.g. those with acute kidney injury, the eGFR may not accurately reflect actual GFR. Performed By: #### MAYA STEIN, MG1 ####[facility] [phone] Glucose [Mass/Vol] 105 74-99 mg/dL High 09-25-2019 [facility] ([id number]) Comment: Result Comment: The [place] Diabetes [employer] (ADA) provides guidance for cutoff values for fasting glucose and random glucose. The ADA defines fasting as no caloric intake for at least 8 hours. Fas ting plasma glucose results between 100 to 125 mg/dL indicate increased risk for diabetes (prediabetes). Fasting plasma glucose resul ts greater than or equal to 126 mg/dL meet the criteria for diagnosis of diabetes. In the absence of unequivocal hyperglycemia, results should be confirmed by repeat testing. In a patient with classic s ymptoms of hyperglycemia or hyperglycemic crisis, random plasma glucose results greater than or equal to 200 mg/dL meet the criteria for diagnosis of diabetes. Reference: Standards of [facility] [place] [facility] in Diabetes 2016, [place] [employer]. Diabetes Care. 2016.39(Suppl 1). Performed By: #### CBC, BMP, MG1 ####[facility] [address] [place] [phone] Potassium [Moles/Vol] 4.0 3.7-5.1 mmol/L Normal 09-25-20 [facility] ([id number]) Comment: Performed By: #### CBC, BMP, MG1 ####[facility] [address] [place] [phone] Sodium [Moles/Vol] 135 136-144 mmol/L Low 09-25-2019 [facility] ([id number]) Comment: Performed By: #### CBC, BMP, MG1 ####[facility] [address] [phone] 0 Urea nitrogen [Mass/Vol] 21 9-24 mg/dL Normal 09-25 [facility] ([id number]) Comment: Performed By: #### CBC, BMP, MG1 ####[facility] [address] [phone] 0 xr chest 2v frontal/lat on 2019-09-24 XR CHEST 2V * * *Final Report* * * Normal 09-24 [facility] FRONTAL/LAT DATE OF EXAM: Sep 24 2019 3:22PM ([id number]) MDX [id number] - XR CHEST 2V FRONTAL/LAT / PROCEDURE REASON: Acute respiratory illness * * * * Physician Interpretation * * * * EXAMINATION: CHEST RADIOGRAPH (2 VIEW FRONTAL and LATERAL) CLINICAL HISTORY: Acute respiratory illness MQ: XC2_5 Comparison: Comparison is made to prior chest dated 09/21/20 and 01 May 2016 RESULT: Lines, tubes, and devices: Monitor leads overlie the chest Lungs and pleura: Mild chronic interstitial lung changes are stable. There is no focal consolidation or acute pleural process/flu id. There is no overt pulmonary edema. Cardiomediastinal silhouette: The cardiac, mediastinal and h ilar shadows are unchanged with unfolded thoracic aorta and mild prominen ce of the cardiac silhouette. Other: The bony structures are intact IMPRESSION: Stable chest. No acute cardiopulmonary process. Chair: PSCSvitlana Transcribe Date/Time: Sep 24 2019 4:53P Dictated by : ASUNCION QUINONES MD This examination was interpreted and the report reviewed and electronically signed by: ASUNCION QUINONES MD on Sep 24 2019 4:55PM EST [id number] therapy nt on 09-24 THERAPY HNO ID: [id number] Normal 09-24-2019 [place] NT [facility] Service: [facility] ([id number]) Author Type: Physical Therapist Type: Therapy (PT/OT/Speech/Resp) Filed: 09/24/2019 7:24 PM Note Text: Physical Therapy Evaluation SERVICE DATE: 09/24/2019 SERVICE TIME: 1117 to 1155 ROOM: [place] [address] Recommended Discharge Disposition: Home PT Recommended Discharge Disposition Comments: patient would be nefit from home PT for home safety assessment and to increase strength/safety/tolerance with functional progression Anticipated Discharge Needs: Physical Assist at Home;Supervi rashawn at Home Physical Assist at Home for: Cleaning;Laundry;Meals;Shopping;Transportation Supervision at Home due to: (initially for optimal safety) Recommended Discharge Equipment: No equipment needs anticipa carlita PT Recommendations to Nursing: Ambulate with device;To bathr oom;In halls;Transfer to/from chair;OOB for Meals;With assist of 1 person;Other: See Comment(encourage moiblity/OOB,practice OOB w/o bed adju stments) Device: Wheeled Walker(gait belt) PT 6 Clicks Score: 19 Precautions/Activity Restrictions: Bed/Chair Alarm;Fall Risk;Lines/Tubes/Drains ASSESSMENT : Patient presents with general weakness, right knee pain, lef t groin pain with decreased skin integrity, with impaired functional mobi lity, decreased balance/increased fall risk and decreased activity tolerance impacting ability to perform functional mobility without car egiver assist. Patient pleasant and cooperative and AANDO x 3 and demonst rates good follow through with cues/educaiton. Patient demonstrates all mobili ty with SBA/CGA including bed mobility, transfers and amb with FWW. Patient with expected left groin pain post surgery however now also with right knee pain which patient attributes to lying flat with knee extend ed for days. Mobility with SBA/CGA however with pain mostly to right knee ,guarded, with extended time and several attempts required for supine to si t and now requires FWW for amb for pain and stability. Requires skille d PT for increasing strength/safety/tolerance with functional progres rashawn to support home going. Patient Disposition at Start of Session: Supine in Bed;Call Golden in Reach;Bed Alarm Patient Disposition at End of Session: Supine in Bed;Call Be ll in Reach;Bed Alarm Tolerance Limited By Fatigue Physical Therapy Problem List: Pain;Safety Deficits;Impaired Self Care;Decreased Activity Tolerance;Decreased Range Of Motion; Decreased Strength;Functional Mobility Impairment;Balance Impaired;Dec reased Skin Integrity Patient /Caregiver Goals: Go Home Goals for Plan of Care: Able to perform HEP with: Modified Independent(w handout for LE ROM/strength x 10-20 reps) Transfer supine to/from sit with: Independent(to safely barboza sfer to EOB without bed adjustments) Transfer sit to/from stand with: Stand By Assistance Ambulate with: Stand By Assistance Distance: 150-200 feet for safe navigation of home Device: Wheeled Walker Ambulate up and down steps with: Stand By Assistance Number of steps: 3 steps to safely enter home Device: Rail(and LRAD) Goal: patient demonstrates good balance with functional prog ression to decrease risk of falls Progress Toward Goals: Progressing as expected Rehab Potential: Good PLAN: Treatment Frequency (times per week): 4 Current admission Treatment Interventions: Education;Self Care / Home Manageme nt;Energy Conservation Training;Joint Mobility;Strengthening;Functiona l Mobility Training;Balance Training;Neuromuscular Re-education Plan of Care developed with: Patient TREATMENT INTERVENTIONS: Therapy Diagnosis: Reduced mobility-other Interventions Provided: Evaluation;Therapeutic Activity (452 30);Gait Training (88509) $ Evaluation-Low (68362) Billed Units: 1 unit Therapeutic Activity (12542) Treatment Minutes: 15 1 unit Skilled Intervention(s): Instructed patient in sit to supine using safe, effective technique Instructed patient in supine to and from sit pushing with up per extremities to sit up Instruction in stand to sit technique with lower extremities touching chair/bed and reaching back for surface Instruction in sit to and from stand technique with proper h and placement and body positioning at edge of bed/chair Education of benefit of mobility to prevent decline and work towards functional/home going goals. d Education in use of call light to get up 100% of the time an d to call immediately with any symptoms of lightheadedness/dizzness/na usea. Teach back education for call light use Education in discharge recommendation and rationale - home P T, PRN assist for IADL'sl Education for safe home going parameters Education for balancing activity and rest and safe activity dosing. Extended time due to slow moving and with bed mobility requi res multiple attemts Gait Training (10114) Treatment Minutes: 8 1 unit Skilled Intervention(s): Instruction in sequencing, gait pat tern, Instruction in correction of gait deviations, Instruction in use of equipment, cues for sequence and pattern Recommendation for FWW and education for adjusting device ap propriately and rationale. Total Timed Code Treatment Minutes: 23 Total Treatment Time (minutes): 38 SUBJECTIVE: Current Hospital Course: Chart reviewed; 4 Patient is a 79 year old male DATE OF SURGERY/PROCEDURE: 09/21/2019 SURGERY/PROCEDURE: Left common, superficial and profunda fem oral endarterectomy with patch angioplasty. 09/23/2019 8:47 PM - Radiology, Oru In Impression IMPRESSION: Osteoarthrosis with chondrocalcinosis. Medial so ft tissue swelling Reason for Physical Therapy Consult : Patient presents with PAD. Patient admitted with admission Dx: peripheral artery diseas e. s/p L angiography. 09/21/19 s/p endarterectomy. referred to PT for post acute placement Relevant Past Medical History: benign neoplasm of colon, kip ign neoplasm of rectum/anal canal, C diff,DDD,diarrhea,esophageal reflux, HTN,HLD,PAD, rotator curr impingement right shoulder,.traumatic complete tear of left shoulder,laminectomy, prostate CA Patient Report: patient aggreable to PT, cleared for mobilit y by nursing. Denies lightheadedness/dizziness/nausea throughout. Noted on set of right knee pain during hospitalization which patient feels is due to lying on back with right knee extended for several days. Home Environment Patient Lives With: Self/Alone Assistance Available: PRN(daughter nearby and might stay wit h him) Entry To Home: Stairs;With Rail Number Of Stairs Into Home: 3 Number Of Stairs To Bed/Bath: 0(single floor set up) Tub/Shower Type: tub/shower with grab bar, shoulder and hand held shower Laundry: basement laundry - daughter to assist Equipment Owned: Cane;Grab Bars-Shower;Grab Bars-Toilet;Hand Held Shower;Wheeled Walker;Standard Walker;Rollator;Shower Chair Prior Functional Level: Within Functional Limits Prior Functional Level Comments: ind wiht amb without device , ADL, IADL's, +drives, denies falls in last 6 months OBJECTIVE: Range of Motion: WFL Except;Lower Extremity Comments Right Lower Extremity ROM Comments: knee flexion AROM in sit ting 15 - 90 degrees with pain Left Lower Extremity ROM Comments: seated AROM hip flexion 9 5 degrees with pain, Strength: WFL Except;Lower Extremity Comments Right Lower Extremity Strength Comments: grossly at least 3- /5 per clinical judgement, not formally MMT due to right knee pain Left Lower Extremity Strength Comments: grossly at least 3-/ 5 per clinical judgement, not formally MMT due to left groin pain/surgery Quality of Movement: Bradykinetic CURRENT FUNCTIONAL STATUS: Current Functional Mobility Assist Level Additional Informat ion Rolling Supine to Sit Stand By Assistance(HOB flat,min rail use,slow ,extended time,multiple attempts) Sit to Supine Stand By Assistance Scooting Stand By Assistance(sitting fwd/retro at EOB AND supine lateral to center of bed) Sit to Stand Contact Guard Assistance(from min elevated EOB consistent with home set up with FWW) Stand to Sit Contact Guard Assistance(to min elevated EOB wi th FWW) Bed to Chair Toilet/Commode Gait Contact Guard Assistance(with progression to SBA) Gait Device: Wheeled Walker Gait Distance (feet): 100 x 1 Stairs (deferred due to fatigue/pain) Curb Step (NA) Car Transfer Gait Deviations Right Lower Extremity: Stance time decreased ;Heel strike during initial stance decreased;Push-off during terminal sta nce decreased;Knee flexion during stance increased;Knee stabilit y during stance phase decreased;Step length decreased;Lacks hip exten rashawn beyond mid-stance Gait Deviations Left Lower Extremity: Heel strike during ini tial stance decreased;Push-off during terminal stance decreased;Step yaneth gth decreased General Gait Deviations: Anitha decreased;Step length decre ased;Flexed trunk posture;Narrow Base of Support *Gait belt donned prior to OOB activity and ambulation Balance: Static Sitting;Dynamic Sitting;Static Standing;Kaylee niya Standing Static Sitting Balance: Good Able to maintain balance agains t moderate resistance Dynamic Sitting Balance: Good-/Fair+ Able to sit unsupported AND weight shift across midline minimally Static Standing Balance: Fair- Requires Min A or UE support in order to stand without LOB Dynamic Standing Balance: (fair - ) (fair - ) JH-HLM: 7: Walk 25 feet or more Please see discipline specific clinical documentation [facility] for complete details for this therapy evaluation/treatment. SIGNATURE: Erin Mcgraw PT PATIENT NAME: Tye Vazquez DATE: September 24, 2019 TIME: 7:12 PM progress on 2019-09 PROGRESS HNO ID: [id number] Normal 09-24-2019 [facility] ([id number]) Author: Aron Mena Service: Vascular Surgery Author Type: Physician Type: Progress Notes Filed: 09/24/2019 4:23 PM Note Text: [facility] POSTOP PROGRESS NOTE POD: 3 S/P SURGERY: left femoral endarterectomy, patch angio plasty INTERVAL EVENTS / PERTINENT ROS: no acute events, worked wit h PT/OT, OoB to chair Subjective Patient w/o complaints Objective Patient Vitals for the past 24 hrs: BP Temp Temp src Pulse Resp SpO2 09/24/19 1617 138/94 36.5 ?C (97.7 ?F) Oral 67 18 94 % 09/24/19 0739 168/63 36.4 ?C (97.5 ?F) Oral (!) 58 18 97 % 09/24/19 0628 (!) 107/21 36.8 ?C (98.2 ?F) Oral 65 18 97 % 09/23/19 2123 (!) 131/49 36.9 ?C (98.4 ?F) Oral 62 16 95 % 09/23/19 1640 135/63 36.8 ?C (98.2 ?F) Oral 63 16 97 % Intake/Output Summary (Last 24 hours) at 09/24/2019 1620 Last data filed at 09/24/2019 1250 Gross per 24 hour Intake ? Output 750 ml Net -750 ml Current Weight: Weight: 75.5 kg (166 lb 7.2 oz) Physical Exam: Neuro: AANDO Cardiac: regular rate Resp: CTA Ext: left groin soft w/ prevena in place Doppler signal in bilateral PT Lab Data: Invalid input(s): BMP Recent Labs 09/24/19 0606 09/22/19 0400 WBC 10.56 8.69 HB 12.3* 11.1* HCT 35.9* 32.5* PLT 193 187 MCV 94.5 93.9 MCH 32.4 32.1 MPV 10.7 9.8 RDWCV 12.2 12.5 Assessment/Plan POD3 s/p left femoral endarterectomy Disposition planning, likely discharge home tomorrow Continue OoB chair Incentive spirometry SIGNATURE: Aron Mena MD PATIENT NAME: Tye Vazquez DATE: September 24, 2019 TIME: 4:20 PM PAGER/CONTACT #: [phone] PROGRESS HNO ID: [id number] Normal 09-24-2019 [facility] ([id number]) Author: Edenilson Perera Service: Hospital Medicine Author Type: Physician Type: Progress Notes Filed: 09/24/2019 3:43 PM Note Text: SERVICE DATE: 09/24/2019 SERVICE TIME: 3:41 PM HOSPITAL MEDICINE PROGRESS NOTE NIGHT AND WEEKEND COVERAGE: Nights: Please contact pager [phone]. Hospital Medicine/Primary Attending: Edenilson Perera MD Subjective HPI: From HANDP CHIEF COMPLAINT: PAD, rest pain ? HPI: This is a 79 year old male who presents for left profun da and superficial femoral artery endarterectomy for complaints of left halux rest pain. Underwent cardiac stress test, negative for inducible ischem ia, low risk scan. No new complaints. Interval Events: complains of pain at the site of right knee and the left knee Objective BP 168/63 Pulse 58 Temp (Src) 97.5 (Oral) Resp 18 Ht 5' 7 (1.70m) Wt 166 lb 7.2 oz (75.5kg) SpO2 97% BMI 26.06 kg/(m2). O2 Therapy: Nasal Cannula, Liters: 4.00 Physical Exam Performed: GENERAL: : well appearing, alert and in no acute distress HEART: : regular rate and rhythm, no murmer, gallop or rub, normal, S1, S2, no lifts, heaves, or thrills, PMI not displaced LUNGS: : clear to percussion and auscultation and no rales ABDOMEN: : Soft, nontender, bowel sounds normal, no palpable organomegaly, no bruits. EXTREMITY: :surgical incision site in a dressing and healing well Lines, Drains, and Airways Line Peripheral 09/21/19 0721 Assessment Midline Left Forearm 20 Gauge 3 days Peripheral 09/21/19 0845 Short Right Hand 18 Gauge 3 days Reviewed lines and needs to be continued: REASONS: Intraveno us fluids and Electrolyte replacement Medications: Reviewed Diagnostic tests reviewed: Most recent labs Most recent imaging Recent Labs 09/24/19 0606 09/22/19 0400 09/21/19 0655 WBC 10.56 8.69 6.50 RBC 3.80* 3.46* 4.33 HB 12.3* 11.1* 14.1 HCT 35.9* 32.5* 40.0 PLT 193 187 254 MCV 94.5 93.9 92.4 MCH 32.4 32.1 32.6 MPV 10.7 9.8 10.4 ABSNEUT -- 7.00 -- NEUTP -- 80.5 -- LYMPHP -- 10.4 -- MONOP -- 9.0 -- EODINP -- 0.0 -- Recent Labs 09/24/19 0606 09/22/19 1952 09/22/19 0400 GLUC 93 121* 131* NA 134* 141 140 K 3.6* 3.7 3.8 CHLOR 96* 103 106* CO2 25 27 25 CREAT 0.85 0.84 1.05 BUN 18 15 18 ANION 13 11 9 CA 8.5 8.9 8.5 Recent Labs 09/21/19 0655 APTT 32.0 INR 1.0 Most recent labs Assessment AND Plan Active Hospital Problems as of 09/24/2019 Noted - Resolved Hospital Esophageal reflux 08/29/2006 - Present Current Assessment AND Plan Assessment: Stable PLAN: Prn Tums Mixed hyperlipidemia 09/02/2006 - Present Current Assessment AND Plan Lab Results Component Value Date HDL 39 (L) 10/21/2018 LDL 60 10/21/2018 TG 67 10/21/2018 On atorvastatin 10 mg due to low HDL Continue home Essential hypertension 10/16/2015 - Present Current Assessment AND Plan Assessment: Stable PLAN: Cont Norvasc, Lisinopril, Metoprolol, HCTZ * (Principal) 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 Mena on 09/21 with Left common, supe rficial and profunda femoral endarterectomy, patch angioplasty. PLAN: oob and up to a chair Cont ASA and Plavix Mild pain. Other insomnia 09/22/2019 - Present Current Assessment AND Plan Assessment: Normally take one small glass of vine at night and benadryl 50mg at bedtime Melatonin didn't work last night PLAN: Cont benadryl 50 mg qHs Anemia 09/24/2019 - Present Current Assessment AND Plan Slight drop in hemoglobin after the procedure Secondary to intra op blood loss Continue to monitor Acute respiratory failure with hypoxia (HCC) 09/24/2019 - Pr esent Current Assessment AND Plan Requiring 4 lt of oxygen Will obtain chest xray . Medication and Non-Pharmacologic VTE Prophylaxis/Anticoagula nts Anticoagulant AND Antiplatelet Medications (From admission, onward) Start Dose Route Frequency Ordered Stop 09/21/19 1530 aspirin, enteric coated 81 mg tab(s) 81 mg ORAL DAILY 09/21/19 1515 -- 09/21/19 1530 clopidogrel 75 mg tab(s) (PLAVIX) 75 mg ORAL DAILY 09/21/19 1515 -- 09/23/19 1045 activity - mobilize patient (fl,oh) 09/21/19 1530 vte pharmacologic prophylaxis contraindicated (fl,oh) 09/21/19 1530 vte pharmacologic prophylaxis contraindicated (fl,oh) 09/21/19 1530 vte pharmacologic prophylaxis contraindicated (fl,oh) 09/21/19 153 pneumatic compression stockings (fl,oh) 09/21/19 153 pneumatic compression stockings (fl,oh) 09/21/19 153 pneumatic compression stockings (wi,oh) VTE Prophylaxis: VTE prophylaxis appropriate Plan of care discussed with: Patient and RN SIGNATURE: Edenilson Perera MD PATIENT NAME: Tye Vazquez DATE: September 24, 2019 TIME: 3:41 PM PAGER/CONTACT #: [phone] magnesium on 2018-10 Magnesium [Mass/Vol] 1.9 1.7-2.3 mg/dL Normal [address] [place] [address] ([id number]) Comment: Performed By: #### CBC, BMP, MG1 ####[facility] [address] [place] [phone] cbc on 2019-09-24 Erythrocyte distribution 12.2 11.5-15.0 % Normal 09-24 [facility] ([id number]) width (RBC) [Ratio] Comment: Performed By: #### CBC, BMP, MG1 ####[facility] [address] [place] [phone] Hematocrit (Bld) [Volume 35.9 39.0-51.0 % Low 09-24 [facility] ([id number]) fraction] Comment: Performed By: #### CBC, BMP, MG1 ####[facility] [address] [place] [phone] Hemoglobin (Bld) 12.3 13.0-17.0 g/dL Low 09-24-2019 [facility] ([id number]) [Mass/Vol] Comment: Performed By: #### CBC BMP, MG1 ####[facility] [address] [place] [address] 0 MCH (RBC) [Entitic mass] 32.4 26.0-34.0 pG Normal 09-24 [facility] ([id number]) Comment: Performed By: #### CBC BMP, MG1 ####[place] [address] 0 MCHC (RBC) [Mass/Vol] 34.3 30.5-36.0 g/dL Normal 09-24-20 19 [facility] ([id number]) Comment: Performed By: #### CBC BMP, MG1 ####[place] [address] 0 MCV (RBC) [Entitic vol] 94.5 80.0-100.0 fL Normal 09-24 [facility] ([id number]) Comment: Performed By: #### CBC BMP, MG1 ####[place] [address] 0 Platelet mean volume (Bld) 10.7 9.0-12.7 fL Normal [facility] ([id number]) [Entitic vol] Comment: Performed By: #### CBC BMP, MG1 ####[place] [address] 0 Platelets (Bld) [#/Vol] 193 150-400 k/uL Normal 2018 [facility] ([id number]) Comment: Performed By: #### CBC, BMP, MG1 ####[place] [address] 0 RBC (Bld) [#/Vol] 3.80 4.20-6.00 m/uL Low 09-24-2019 [facility] ([id number]) Comment: Performed By: #### CBC, BMP, MG1 ####[place] [address] 0 WBC (Bld) [#/Vol] 10.56 3.70-11.00 k/uL Normal 09-24-2019 [facility] ([id number]) Comment: Performed By: #### CBC, BMP, MG1 ####[facility] [address] [phone] case managem on 06-25-12 CASE MANAGEM HNO ID: [id number] Normal 09-24-[address] [place] [address] Author: Veronica Alvarado (Sw) ([id number]) Service: Case Management Author Type: Vendor Representatives Type: Care Mgt Progress Note Filed: 09/24/2019 1:32 PM Note Text: CARE MANAGEMENT PROGRESS NOTE SERVICE DATE: 09/24/2019 SERVICE TIME: 1:31 PM LOS: 3 days FREEDOM OF CHOICE GIVEN: Levels of care discussed: Yes - Home Care Financial disclosure provided: No, n/a Provider List: Home Care Provider list within the patient's requested geographic area shared with the patient/family: Yes - Within [address] miles of [address] [place] [address] Quality and resource use metrics shared with the patient marc t are relevant to the patient's goals of care and treatment preferences: Yes - Functional Status Needs Prior to Discharge: To Be Determined;Facility or Agenc y Choices;Home Care Order;OT/PT Evaluation CM met with patient. PT=C and patient was provided a list. Patient made 3 choices [facility], [facility], [facility]. Re ferrals to be sent. Await response. SIGNATURE: ULISES Ken PATIENT NAME: Tye Vazquez DATE: September 24, 2019 TIME: 1:27 PM PAGER/CONTACT #: [phone] basic metabolic panl on 2019-09-24 Anion gap [Moles/Vol] 13 9-18 mmol/L Normal 09-24-[address] [place] [address] ([id number]) Comment: Performed By: #### CBC, BMP, MG1 ####[facility] [address] [phone] Calcium [Mass/Vol] 8.5 8.5-10.2 mg/dL Normal 09-24-2019 [facility] ([id number]) Comment: Performed By: #### CBC, BMP, MG1 ####[facility] [address] [phone] Chloride [Moles/Vol] 96 97-105 mmol/L Low [address] [place] [address] ([id number]) Comment: Performed By: #### CBC, BMP, MG1 ####[facility] [address] [place] [address] 0 CO2 [Moles/Vol] 25 22-30 mmol/L Normal 09-24-2019 [facility] ([id number]) Comment: Performed By: #### CBC, BMP, MG1 ####[facility] [address] [place] [address] 0 Creatinine [Mass/Vol] 0.85 0.73-1.22 mg/dL Normal 09-24-20 19 [facility] ([id number]) Comment: Performed By: #### CBC, BMP, MG1 ####[facility] [address] [place] [address] 0 eGFR- Amer. >60 Normal 09-24-2019 [facility] ([id number]) Comment: Performed By: #### CBC, BMP, MG1 ####[facility] [address] [place] [address] 0 GFR/1.73 sq M predicted >60 mL/min/{1.73_m2} Normal 09-24-2019 [facility] among non-blacks MDRD ([id number]) (S/P/Bld) [Vol rate/Area] Comment: Result Comment: eGFR (Estima carlita GFR) Units of measure: mL/min/1.73 meters squared eGFR is derived from the ree xpressed MDRD Study equation using the following parameters: serum creatinine, age, gender and race. The creatinine assay has been calibrated to be traceable to IDMS. An eGFR <60 mL/min/1.73m2 fo r >3 months is consistent with chronic kidney disease. Refer to KDOQI guidelines for clinical interpretation. In patients with unstable re nal function, e.g. those with acute kidney injury, the eGFR may not accurately reflect actual GFR. Performed By: #### CBC, BMP, MG1 ####[facility] [address] [place] [address] 0 Glucose [Mass/Vol] 93 74-99 mg/dL Normal 09-24-2019 [facility] (07643) Comment: Result Comment: The [place] Diabetes Association (ADA) provides guidance for cutoff values for fasting glucose and random glucose. The ADA defines fasting as no caloric intake for at least 8 hours. Fas ting plasma glucose results between 100 to 125 mg/dL indicate increased risk for diabetes (prediabetes). Fasting plasma glucose resul ts greater than or equal to 126 mg/dL meet the criteria for diagnosis of diabetes. In the absence of unequivocal hyperglycemia, results should be confirmed by repeat testing. In a patient with classic s ymptoms of hyperglycemia or hyperglycemic crisis, random plasma glucose results greater than or equal to 200 mg/dL meet the criteria for diagnosis of diabetes. Reference: Standards of [facility] [place] Care in Diabetes 2016, [place] [employer] Association. Diabetes Care. 2016.39(Suppl 1). Performed By: #### CBC, BMP, MG1 ####[facility] [address] [place] [address] 0 Potassium [Moles/Vol] 3.6 3.7-5.1 mmol/L Low 09-24-20 [facility] ([id number]) Comment: Performed By: #### CBC, BMP, MG1 ####[facility] [address] [place] [address] 0 Sodium [Moles/Vol] 134 136-144 mmol/L Low 09-24-2019 [facility] ([id number]) Comment: Performed By: #### CBC, BMP, MG1 ####[facility] [address] [place] [address] 0 Urea nitrogen [Mass/Vol] 18 9-24 mg/dL Normal 09-24 [facility] ([id number]) Comment: Performed By: #### CBC, BMP, MG1 ####[facility] [address] [place] [address] 0 allied health on 01-10-12 [facility] HNO ID: [id number] Normal 019 [facility] Author: Magen LantiguaCtRODGER Roberts ([id number]) Service: ? Author Type: Clinical Child Psychologist Type: Allied Health Filed: 09/24/2019 3:24 PM Note Text: Radiology Service Progress Note PATIENT NAME: Tye Vazquez DATE OF SERVICE: September 24, 2019 TIME: 3:24 PM PATIENT IDENTITY VERIFICATION COMPLETED USING TWO (2) IDENTI FIERS: Name and Date of confirmed by patient verbally. PATIENT GENDER DATA: Male PATIENT RELEVANT IMPLANT DATA REVIEWED: Not Applicable RADIOLOGY DEPARTMENT: General X-ray: Exam(s) Completed: Ches t X-Ray PERIPHERAL IV DATA: Not applicable SIGNED BY: RODGER Choudhury September 24, 2019 3:24 PM xr knee 2v ap/lat rt on 2019-09-23 XR KNEE 2V * * *Final Report* * * Normal 2018 [facility] AP/LAT RT DATE OF EXAM: Sep 23 2019 8:20PM ([id number]) MDX 5207 - XR KNEE 2V AP/LAT RT / PROCEDURE REASON: Knee pain, non-localized, initial exam * * * * Physician Interpretation * * * * PROCEDURE: Right knee INDICATION: Knee pain, non-localized, initial exam.right kne e pain TECHNIQUE: XR KNEE 2V AP/LAT RT COMPARISON: None FINDINGS: Significant medial joint compartment narrowing with mild tri compartment spur formation. Chondrocalcinosis. No fracture or joint effu rashawn. Tissue swelling medially. Vascular calcifications. IMPRESSION: Osteoarthrosis with chondrocalcinosis. Medial so ft tissue swelling Chair: [facility] Transcribe Date/Time: Sep 23 2019 8:44P Dictated by : AMOS TIRADO MD This examination was interpreted and the report reviewed and electronically signed by: AMOS TIRADO MD on Sep 23 2019 8:44PM EST [id number] uric acid on 2018-10 Urate [Mass/Vol] 4.7 4.0-8.1 mg/dL Normal 09-23-2019 [facility] ([id number]) Comment: Performed By: #### URIC #### [facility] [address] [place] [phone] progress on 2019-09 PROGRESS HNO ID: [id number] Normal 09-23-2019 [facility] ([id number]) Author: Aron Mena Service: Vascular Surgery Author Type: Physician Type: Progress Notes Filed: 09/23/2019 11:22 AM Note Text: [facility] POSTOP PROGRESS NOTE POD: 2 S/P SURGERY: left femoral endarterectomy INTERVAL EVENTS / PERTINENT ROS: no events Subjective Patient with postoperative tenderness in left groin No other complaints Objective Patient Vitals for the past 24 hrs: BP Temp Temp src Pulse Resp SpO2 09/23/19 1118 133/69 36.7 ?C (98.1 ?F) Oral 68 16 94 % 09/23/19 0737 140/106 36.7 ?C (98.1 ?F) Oral 61 18 92 % 09/23/19 0400 ? 37 ?C (98.6 ?F) Temporal (!) 58 18 95 % 09/23/19 0000 159/73 37 ?C (98.6 ?F) Temporal (!) 57 18 92 % 09/22/19 1928 140/68 36.6 ?C (97.8 ?F) Oral 65 20 92 % 09/22/19 1830 145/69 ? ? 66 18 94 % 09/22/19 1800 144/66 ? ? 67 22 94 % 09/22/19 1745 ? ? ? 63 19 96 % 09/22/19 1730 156/72 ? ? 67 20 93 % 09/22/19 1630 161/73 ? ? 71 17 ? 09/22/19 1600 182/82 ? ? 83 22 ? 09/22/19 1540 177/79 ? ? 69 14 92 % 09/22/19 1530 ? ? ? 75 18 94 % 09/22/19 1500 ? 36.6 ?C (97.9 ?F) Temporal 79 18 96 % 09/22/19 1445 ? ? ? 69 16 95 % 09/22/19 1415 ? ? ? 70 17 99 % 09/22/19 1408 ? ? ? 72 16 98 % 09/22/19 1400 138/61 ? ? 73 17 97 % 09/22/19 1300 155/65 ? ? 87 30 98 % 09/22/19 1200 147/64 ? ? 76 27 95 % 09/22/19 1130 ? ? ? 77 24 93 % Intake/Output Summary (Last 24 hours) at 09/23/2019 1120 Last data filed at 09/23/2019 0900 Gross per 24 hour Intake 1971 ml Output 3740 ml Net -1769 ml Current Weight: Weight: 75.5 kg (166 lb 7.2 oz) Physical Exam: Neuro: AANDO Resp: CTA Cardiac: regular rate Ext: left groin soft, Prevena in place Toes pink in left foot, motor/sensory intact Lab Data: Recent Labs 09/21/19 0655 PTSEC 11.0 INR 1.0 APTT 32.0 Recent Labs 09/22/19 0400 09/21/19 0655 WBC 8.69 6.50 HB 11.1* 14.1 HCT 32.5* 40.0 PLT 187 254 MCV 93.9 92.4 MCH 32.1 32.6 MPV 9.8 10.4 RDWCV 12.5 12.0 Assessment/Plan POD2 s/p left femoral endarterectomy. OoB to chair. PT/OT. D/c schreiber. Encouraged to use incentive spirometry. SCDs to legs when in bed. SIGNATURE: Aron Mena MD PATIENT NAME: Tye Vazquez DATE: September 23, 2019 TIME: 11:20 AM PAGER/CONTACT #: [phone] PROGRESS HNO ID: [id number] Normal 09-23-2019 [facility] ([id number]) Author: Jean-Claude Mccann) Nathaniel Service: Hospital Medicine Author Type: Physician Type: Progress Notes Filed: 09/22/2019 11:31 PM Note Text: SERVICE DATE: 09/22/2019 SERVICE TIME: 7:30 PM HOSPITAL MEDICINE PROGRESS NOTE NIGHT AND WEEKEND COVERAGE: Nights: Please contact pager [phone]. Hospital Medicine/Primary Attending: Jean-Claude Armstrong MD Subjective HPI: From HANDP CHIEF COMPLAINT: PAD, rest pain ? HPI: This is a 79 year old male who presents for left profun da and superficial femoral artery endarterectomy for complaints of left halux rest pain. Underwent cardiac stress test, negative for inducible ischem ia, low risk scan. No new complaints. Interval Events: Patient is doing better after surgery yeste rday. Having some pain but getting better. C/o Schreiber cath causing sensati on of needing to void. Patient is stable with BP and postoperative course. Ok to move out of ICU for 2N for continued monitoring. Patient was given IV Lopressor for BP once. Noted high fluid loss via Schreiber cath. Recheck BMP and electr olytes are appropriate. Potentially DC Schreiber tomorrow (Saturday). Hospitalist service to take over the primary service. Objective BP 140/68 Pulse 65 Temp (Src) 97.8 (Oral) Resp 20 Ht 5' 7 (1.70m) Wt 166 lb 7.2 oz (75.5kg) SpO2 92% BMI 26.06 kg/(m2). O2 Therapy: Nasal Cannula, Liters: 4 Physical Exam Performed: GENERAL: : well appearing, alert and in no acute distress HEART: : regular rate and rhythm, no murmer, gallop or rub, normal, S1, S2, no lifts, heaves, or thrills, PMI not displaced LUNGS: : clear to percussion and auscultation and no rales ABDOMEN: : Soft, nontender, bowel sounds normal, no palpable organomegaly, no bruits. EXTREMITY: : Normal exam of the extremities. No clubbing, cy anosis, or edema. NEURO: Cranial nerves II-XII intact PULSES: 2+ radial, 2+ carotid Lines, Drains, and Airways Line Peripheral 09/21/19 0721 Assessment Midline Left Forearm 20 Gauge 1 day Peripheral 09/21/19 0845 Short Right Hand 18 Gauge 1 day Drain Indwelling Urinary Catheter 09/21/19 0840 Coude 1 day Reviewed lines, drains, AND airways. Need to be continued . Medications: Reviewed Diagnostic tests reviewed: Most recent imaging Recent Labs 09/22/19 0400 09/21/19 0655 09/15/19 1135 WBC 8.69 6.50 6.44 RBC 3.46* 4.33 4.50 HB 11.1* 14.1 14.5 HCT 32.5* 40.0 41.7 PLT 187 254 244 MCV 93.9 92.4 92.7 MCH 32.1 32.6 32.2 MPV 9.8 10.4 10.7 ABSNEUT 7.00 -- -- NEUTP 80.5 -- -- LYMPHP 10.4 -- -- MONOP 9.0 -- -- EODINP 0.0 -- -- Recent Labs 09/22/19 1952 09/22/19 0400 09/21/19 0655 GLUC 121* 131* 92 NA 141 140 140 K 3.7 3.8 3.6* CHLOR 103 106* 100 CO2 27 25 28 CREAT 0.84 1.05 1.29* BUN 15 18 20 ANION 11 9 12 CA 8.9 8.5 9.8 Recent Labs 09/21/19 0655 APTT 32.0 INR 1.0 Assessment AND Plan Active Hospital Problems as of 09/22/2019 Noted - Resolved Hospital * (Principal) 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 Mena on 09/21 with Left common, supe rficial and profunda femoral endarterectomy, patch angioplasty. PLAN: Postoperative monitoring and activity escalation per vascula r surgery. Cont ASA and Plavix Mild pain. Esophageal reflux 08/29/2006 - Present Current Assessment AND Plan Assessment: Stable PLAN: Prn Tums Essential hypertension 10/16/2015 - Present Current Assessment AND Plan Assessment: Stable PLAN: Cont Norvasc, Lisinopril, Metoprolol, HCTZ Mixed hyperlipidemia 09/02/2006 - Present Current Assessment AND Plan Assessment: Stable PLAN: Cont statin Other insomnia 09/22/2019 - Present Current Assessment AND Plan Assessment: Normally take one small glass of vine at night and benadryl 50mg at bedtime Melatonin didn't work last night PLAN: Cont benadryl 50 mg qHs Medication and Non-Pharmacologic VTE Prophylaxis/Anticoagula nts Anticoagulant AND Antiplatelet Medications (From admission, onward) Start Dose Route Frequency Ordered Stop 09/21/19 1530 aspirin, enteric coated 81 mg tab(s) 81 mg ORAL DAILY 09/21/19 1515 -- 09/21/19 1530 clopidogrel 75 mg tab(s) (PLAVIX) 75 mg ORAL DAILY 09/21/19 1515 -- 09/21/19 1530 vte pharmacologic prophylaxis contraindicated (fl,oh) 09/21/19 1530 vte pharmacologic prophylaxis contraindicated (fl,oh) 09/21/19 1530 vte pharmacologic prophylaxis contraindicated (fl,oh) 09/21/19 1530 pneumatic compression stockings (fl,oh) 09/21/19 1530 pneumatic compression stockings (fl,oh) 09/21/19 1530 pneumatic compression stockings (fl,oh) VTE Prophylaxis: VTE prophylaxis appropriate Plan of care discussed with: Provider, RN, Patient and ICU T ea SIGNATURE: Jean-Claude Armstrong MD PATIENT NAME: Tye Vazquez DATE: September 22, 2019 TIME: 11:30 PM PAGER/CONTACT #: allied health on 01-10-11 [facility] HNO ID: [id number] Normal [address] [place] [address] Author: Charlie (Rt) Serafin Asif ([id number]) Service: ? Author Type: Child Psychologist Type: Allied Health Filed: 09/23/2019 8:22 PM Note Text: Radiology Service Progress Note PATIENT NAME: Tye Vazquez DATE OF SERVICE: September 23, 2019 TIME: 8:22 PM PATIENT IDENTITY VERIFICATION COMPLETED USING TWO (2) IDENTI FIERS: Name and Date of confirmed by patient verbally. PATIENT GENDER DATA: Male PATIENT RELEVANT IMPLANT DATA REVIEWED: Not Applicable RADIOLOGY DEPARTMENT: General X-ray: Exam(s) Completed: Israel darden Extremity X-Ray(s): Knee, AP / LAT Right: PERIPHERAL IV DATA: Not applicable SIGNED BY: RT Carl September 23, 2019 8:22 PM nursing prog on 06-25-10 NURSING HNO ID: [id number] Normal 09-22-2019 [place] PROG Author: Molly (Rn) EMILIANO [facility] Service: Nursing ([id number] [phone]) Author Type: Registered Nurse Type: Nursing Progress Note Filed: 09/22/2019 8:07 PM Note Text: Nursing Progress Note Patient Name: Tye Vazquez Patient [facility]0001/[id number] Mena in to evaluate patients. Aware of flushing on left toes, pulses present with doppler. Pt reports numbness in to es. Both feet warm. Dressing dry and intact to left groin with wound vac. Pt denies any pain. Per Dr. Mena, IVF decreased to KVO, fol ey to stay in until tomorrow as pt will remain on bedrest today, may flex at hip no more than 30 degrees, utilize reverse trendelenburg. Pt to stay i n ICU today. May re-evaluate moving to tele this afternoon. Restarting antihypertensives. 1526 Dr. Mena updated on vitals and all meds received. A anderson of arterial line readings compared to NIBP. Instructed to place NIBP on arm that gives higher reading and OK to DC AL. PRN metoprolol be ing ordered. 9496 Dr. Mena has been by to see patient. AL has been DC 'd. 1530 No changes. Neuro/circ checks to bilat feet and dressin g WNL and stable. 1830 Dr. Armstrong at bedside. Aware of urine output and pt r eceived one dose of PRN lopressor. 190 Report to Myla on 2N. 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 During this time I personally acquired and independently verified reports, reviewing labs, Xrays; discu ssing with other physicians involved in the care of the patient and dev eloped a plan of care with the bedside nurse. This time with is exclusive of separately billable procedures and the treatment of other patients. Add itionally this care required my full attention and direct personal manageme nt on periods of time which in aggregate reflected that amount stated and without which rapid deterioration could or would have occurred. [LEVEL II] DISPOSITION: Stable for transfer to [facility]. CODE STATUS: Full PAST MEDICAL HISTORY Diagnosis Date - Benign neoplasm of colon - Benign neoplasm of rectum and anal canal - Clostridium difficile colitis 05/14/2017 - DDD (degenerative disc disease), lumbar 11/07/2016 - Diarrhea - Esophageal reflux 08/29/2006 - Essential hypertension, benign - Inguinal hernia without mention of obstruction or gangrene , unilateral or unspecified, (not specified as recurrent) 10/11/2008 - Mixed hyperlipidemia 09/02/2006 - Nonspecific (abnormal) findings on radiological and other examination of abdominal area, including retroperitoneum - PAD (peripheral artery disease) (HCC) - Prostate cancer (HCC) - 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 - Umbilical hernia without mention of obstruction or gangren e 10/11/2008 PAST SURGICAL HISTORY Procedure Laterality Date - COLONOSCOP W/ OR W/O BRSH SPEC 04/26/2014 Colonoscopy - COLONOSCOP W/ OR W/O [facility] SPEC 05/07/16 Colonoscopy - COLONOSCOPY AND POLYPECTOMY 05/15/10 tubular adenomas removed- [place] - LAMINECTOMY,>2 SGMT,LUMBAR 06/11/2018 [facility], [place] - PAST SURGICAL HISTORY OF 2001 bilat cataracts, retina - RECONSTRUCT PROX HUMERAL IMPLANT Right 1993 Arthroplasty, shoulder right x 2. 1991, 1993. - REPAIR ING HERNIA,5+Y/O,REDUCIBL 11/26/2008 left - REPAIR ING HERNIA,5+Y/O,REDUCIBL 01/20/2018 Hernia repair, inguinal right, indirect w/medium mesh plug W [facility] - REPAIR UMBILICAL ALBERT,5+Y/O,REDUC 11/26/2008 - SEED IMPLANT 05/2010 for prostate cancer - SIGMOIDOSCOPY FLEX DIAG 12/05/10 Family History Problem Relation Age of Onset - Diabetes Brother skin cancer - Prostate Cancer Brother - Stroke Mother - Blood Disease Father - Coronary Artery Disease Brother - other (Other) Brother paraplegia Current Facility-Administered Medications Medication Dose Route Frequency Provider Last Rate Last Dose - metoprolol 5 mg injection (LOPRESSOR) 5 mg INTRAVENOUS q 4 H PRN Aron Kassavin 5 mg at 09/22/19 1623 - ondansetron orally disintegrating 4 mg tab(s) (ZOFRAN ODT) 4 mg ORAL q 6 H PRN Aron Kassavin Or - ondansetron (PF) 4 mg injection (ZOFRAN) 4 mg INTRAVENOUS q 6 H PRN Aron Mastersonsavin - acetaminophen 325 mg tab(s) (TYLENOL) 325 mg ORAL q 6 H HI N Aron Vencesvin - oxyCODONE-acetaminophen 5-325 mg 1-2 tablet (PERCOCET) 1-2 tablet ORAL q 4 H PRN Aron Kassavin 1 tablet at 09/22/19 1644 - morphine 2 mg injection 2 mg INTRAVENOUS q 4 H PRN Aron Kassavin 2 mg at 09/21/19 1702 - sucralfate 1 g tab(s) (CARAFATE) 1 g ORAL/FEEDING TUBE q 6 H Aron Kassavin 1 g at 09/22/19 1800 - gabapentin 900 mg cap(s) (NEURONTIN) 900 mg ORAL q 12 H Da nikki Kassavin 900 mg at 09/22/19 0843 - atorvastatin 10 mg tab(s) (LIPITOR) 10 mg ORAL DAILY Maxi stout Kassavin 10 mg at 09/21/19 2000 - lisinopril 20 mg tab(s) (ZESTRIL, PRINIVIL) 20 mg ORAL PRAKASH LY Aron Kassavin - metoprolol tartrate (short acting) 50 mg tab(s) (LOPRESSOR ) 50 mg ORAL BID Avneep Gilberto 50 mg at 09/22/19 0844 - amLODIPine 10 mg tab(s) (NORVASC) 10 mg ORAL DAILY Aron Kassavin 10 mg at 09/22/19 0939 - aspirin, enteric coated 81 mg tab(s) 81 mg ORAL DAILY Luciano isidro Kassavin 81 mg at 09/22/19 0843 - clopidogrel 75 mg tab(s) (PLAVIX) 75 mg ORAL DAILY Aron Kassavin 75 mg at 09/22/19 0843 - cyclobenzaprine 10 mg tab(s) (FLEXERIL) 10 mg ORAL HS PRN Aron Mena - lisinopril 20 mg tab(s) (ZESTRIL, PRINIVIL) 20 mg ORAL PRAKASH LY Aron Kassavin 20 mg at 09/22/19 0939 And - Hydrochlorothiazide 12.5 mg 12.5 mg ORAL DAILY Aron Marine rubens 12.5 mg at 09/22/19 0844 CBC, Coags, BMP, Mg, Phos Recent Labs 09/22/19 0400 09/21/19 0655 WBC 8.69 6.50 HB 11.1* 14.1 HCT 32.5* 40.0 PLT 187 254 INR -- 1.0 APTT -- 32.0 NA 140 140 K 3.8 3.6* CHLOR 106* 100 CO2 25 28 BUN 18 20 CREAT 1.05 1.29* GLUC 131* 92 CA 8.5 9.8 Patient Vitals for the past 24 hrs: BP Temp Temp src Pulse Resp SpO2 09/22/19 1730 156/72 ? ? 67 20 93 % 09/22/19 1630 161/73 ? ? 71 17 ? 09/22/19 1600 182/82 ? ? 83 22 ? 09/22/19 1540 177/79 ? ? 69 14 92 % 09/22/19 1530 ? ? ? 75 18 94 % 09/22/19 1500 ? 36.6 ?C (97.9 ?F) Temporal 79 18 96 % 09/22/19 1445 ? ? ? 69 16 95 % 09/22/19 1415 ? ? ? 70 17 99 % 09/22/19 1408 ? ? ? 72 16 98 % 09/22/19 1400 138/61 ? ? 73 17 97 % 09/22/19 1300 155/65 ? ? 87 30 98 % 09/22/19 1200 147/64 ? ? 76 27 95 % 09/22/19 1130 ? ? ? 77 24 93 % 09/22/19 1116 ? 36.9 ?C (98.5 ?F) Temporal ? ? ? 09/22/19 1100 144/67 ? ? 81 22 94 % 09/22/19 1045 148/68 ? ? 79 22 95 % 09/22/19 1040 132/66 ? ? 80 (!) 32 94 % 09/22/19 1030 168/81 ? ? 87 (!) 35 96 % 09/22/19 1015 170/79 ? ? 81 (!) 35 94 % 09/22/19 1000 158/76 ? ? 74 18 96 % 09/22/19 0939 165/77 ? ? 74 20 95 % 09/22/19 0830 ? ? ? 74 26 92 % 09/22/19 0800 ? ? ? 71 20 97 % 09/22/19 0759 ? 36.5 ?C (97.7 ?F) Temporal 67 20 96 % 09/22/19 0700 ? ? ? 63 16 96 % 09/22/19 0600 ? ? ? 81 21 95 % 09/22/19 0530 ? ? ? 70 15 96 % 09/22/19 0500 ? ? ? 66 15 94 % 09/22/19 0430 ? ? ? 69 10 93 % 09/22/19 0400 ? 37 ?C (98.6 ?F) Temporal 68 16 95 % 09/22/19 0330 ? ? ? 77 16 92 % 09/22/19 0300 ? ? ? 69 16 95 % 09/22/19 0230 ? ? ? 68 13 95 % 09/22/19 0200 ? ? ? 67 16 95 % 09/22/19 0130 ? ? ? 68 16 94 % 09/22/19 0100 ? ? ? 71 12 92 % 09/22/19 0030 ? ? ? 72 18 92 % 09/22/19 0000 ? 37.2 ?C (99 ?F) Temporal 78 22 92 % 09/21/19 2330 ? ? ? 80 (!) 38 93 % 09/21/19 2300 ? ? ? 73 12 95 % 09/21/19 2230 ? ? ? 73 17 95 % 09/21/190 ? ? ? 76 19 95 % 09/21/192129 ? ? ? 79 16 94 % 09/21/192099 ? ? ? 84 18 94 % 09/21/192029 ? ? ? 82 15 96 % 09/21/191999 ? ? ? 79 17 97 % 09/21/191929 ? ? ? 84 21 97 % 09/21/191899 ? 37.2 ?C (98.9 ?F) Temporal 87 24 ? IMPRESSION / CURRENT ISSUES : ? Seriously ill 79year old male admitted to [facility] c are unit on 09/21/19 s/p ?Left common, superficial and profunda femoral endarterectomy, patch angioplasty for postoperative managem ent. ? Intraoperative course uneventful, extubated at end of sx in OR. ? As per review of EMR, PMH significant for PAD, smoking. ? At present, pt's BP and HR wnl, not requiring pressor suppor t, awake and alert, maintaining oxygen saturation on NC @ 2L/m. ? Respiratory insufficiency-acute postop Pain -Acute postoperative B/l atelectasis ? Reason for consult: PMH as above. ROS as documented within notes below. ? PHYSICAL EXAM: BP 156/72 Pulse 67 Temp 36.6 ?C (97.9 ?F) (Temporal) R johana 20 Ht 170.2 cm (5' 7) Wt 75.5 kg (166 lb 7.2 oz) SpO2 93% BMI 26.07 kg/m? Neuro:AAO x 3 Lungs:CTAB CV:RRR Abd:Soft, NT Extremities:JAVIER, sx site c/d/i, wound vac in place ? PLAN / INTERVENTIONS: ? Resume home anti hypertensive medications Follow up vascular sx recommendations regarding neuro-vascul ar checks. Prn opioids and multimodal pain control regimen Maintain day/night cycle, avoid BDZ, anticholinergics, anti- histamines Regular diet Continue hemodynamic monitoring Periop prophylaxis per Dr.Kassavin Garza for transfer to [facility] SIGNATURE: Carlota Moya MD DATE: September 22, 2019 TIME: 6:37 PM cbc and differential on 2019-09-22 Abs Baso <0.03 <0.11 Normal 09-22-2019 [facility] ([id number]) Comment: Performed By: #### CBCDIF B MP ####[facility] [address] [place] [address] 0 Abs Sauk 0.78 <0.87 k/uL Normal 09-22-2019 [facility] ([id number]) Comment: Performed By: #### CBCDIF B MP ####[place] [address] 0 Abs Neut 7.00 1.45-7.50 k/uL Normal 09-22-2019 [facility] ([id number]) Comment: Performed By: #### CBCLAKISHAF B MP ####[place] [address] 0 Basophils/100 WBC (Bld) 0.1 % Normal 2018 [facility] ([id number]) Comment: Performed By: #### CBCDIF B MP ####[place] [address] 0 Eosinophils (Bld) [#/Vol] <0.03 <0.46 10*3/uL Normal 09-13 [facility] (53413) Comment: Performed By: #### CBCDIF B MP ####[place] [address] 0 Eosinophils/100 WBC (Bld) 0.0 % Normal 09-13 [facility] (87044) Comment: Performed By: #### CBCDIF B MP ####[place] [address] 0 Erythrocyte distribution 12.5 11.5-15.0 % Normal 09-22 [facility] (78692) width (RBC) [Ratio] Comment: Performed By: #### CBCDIF B MP ####[facility] [address] [place] [address] 0 Hematocrit (Bld) [Volume 32.5 39.0-51.0 % Low 09-22 [facility] ([id number]) fraction] Comment: Performed By: #### CBCDIF B MP ####[facility] [address] [place] [address] 0 Hemoglobin (Bld) 11.1 13.0-17.0 g/dL Low 09-22-2019 [facility] ([id number]) [Mass/Vol] Comment: Performed By: #### CBCDIF B MP ####[facility] [address] [place] [address] 0 Lymphocytes (Bld) [#/Vol] 0.90 1.00-4.00 k/uL Low 09-13 [facility] ([id number]) Comment: Performed By: #### CBCDIF B MP ####[facility] [address] [place] [address] 0 Lymphocytes/100 WBC (Bld) 10.4 % Normal 09-13 [facility] (41716) Comment: Performed By: #### CBCDIF B MP ####[facility] [address] [place] [address] 0 MCH (RBC) [Entitic mass] 32.1 26.0-34.0 pG Normal 09-22 [facility] ([id number]) Comment: Performed By: #### CBCDIF B MP ####[place] [address] 0 MCHC (RBC) [Mass/Vol] 34.2 30.5-36.0 g/dL Normal 09-22-20 [facility] ([id number]) Comment: Performed By: #### CBCDIF, B MP ####[place] [address] 0 MCV (RBC) [Entitic vol] 93.9 80.0-100.0 fL Normal 09-22 [facility] ([id number]) Comment: Performed By: #### CBCDIF, B MP ####[facility] [address] [place] [address] 0 Monocytes/100 WBC (Bld) 9.0 % Normal 2018 [facility] ([id number]) Comment: Performed By: #### CBCROSALBA B MP ####[facility] [address] [place] [address] 0 Neutrophils/100 WBC (Bld) 80.5 % Normal 09-13 [facility] (52437) Comment: Performed By: #### CBCROSALBA B MP ####[facility] [address] [place] [address] 0 Platelet mean volume (Bld) 9.8 9.0-12.7 fL Normal [facility] (30712) [Entitic vol] Comment: Performed By: #### PASTORA B MP ####[place] [address] 0 Platelets (Bld) [#/Vol] 187 150-400 k/uL Normal 2018 [facility] (60535) Comment: Performed By: #### CBCROSALBA B MP ####[facility] [address] [place] [address] 0 RBC (Bld) [#/Vol] 3.46 4.20-6.00 m/uL Low 09-22-2019 [facility] ([id number]) Comment: Performed By: #### CBCROSALBA B MP ####[place] [address] 0 WBC (Bld) [#/Vol] 8.69 3.70-11.00 k/uL Normal 09-22-2019 [facility] ([id number]) Comment: Performed By: #### CBCROSALBA B MP ####[facility] [address] [place] [address] 0 case mgt init asses on 2019-09-22 CASE MGT INIT HNO ID: [id number] Normal 0[facility] Author: Nasrin Gastelum ([place]) ([id number]) Service: Care Management Author Type: Vendor Representatives Type: Care Mgt Initial Assessment Filed: 09/22/2019 11:52 AM Note Text: CARE MANAGEMENT: ASSESSMENT AND DISCHARGE PLAN SERVICE DATE: 09/22/2019 SERVICE TIME: 10:00 AM PRIMARY CARE PHYSICIAN: Talon Bolaños MD - confirmed with pt. 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 No Advance Directive: Current Advance Directive: None Longitudinal Float Operator Attempted to Assist with AD Completion: Yes Action: Education Provided;Other: See Comment(pt states he w as already provided with paperwork) Health Literacy: 1. How often do you need to have someone help you when you r ead instructions, pamphlets, or other written material from your doctor or pharmacy? Never - 1 2. How confident are you filling out medical forms by yourse lf? Extremely - 1 If Patient scores > 3 on either question, the following inte rventions were put into place: Patient did not score > 3 FUNCTIONAL AND COGNITIVE/BEHAVIORAL PRIOR TO ADMISSION: Baseline Mental Status: Alert AND Oriented, Person, Place , Time and Situation Functional Status: Independent Does Patient Currently Receive Any Community Services or [facility] Care? None Equipment Prior to Admission: Grab bars Has the Patient Been in a Custodial Facility in the [facility] 30 days? No SOCIAL: Living Arrangement: Home Lives With: Alone Financial Resources: Retired Primary Contact: Extended Emergency Contact Information Primary Emergency Contact: Clementine Rivero Mobile Relation: Daughter Secondary Emergency Contact: Leena Gamboa Mobile Relation: Daughter Supportive: Yes Other Important Patient Contacts: None Caregiver Assessment: Caregiver is ready, willing and able to meet the patient's n eeds as recommended by the inter-professional team? No Caregiver Nee ded Patient's transition needs and plan for meeting these needs: N/A - anticipate discharge with basic needs, no skilled services o r other referrals indicated at this time Does the patient have an acute stroke diagnosis, or has the patient had a stroke during this admission? No Medication Adherence: I am convinced of the importance of my prescription medicati on: Agree completely - 0 I worry that my prescription medication will do more harm th an good to me Disagree completely - 0 I feel financially burdened by my sce-ke-xjgieq expenses for my prescription medication: Disagree completely - 0 Patient is categorized as low risk < 2 Are you interested in bedside delivery of your medications? No Pt states preferred community pharmacy is [email or web address] or [facility] mail order Is the Patient Psychosocially Complex? No ASSESSMENT AND PLAN: Medical Needs: 2 or more chronic diseases Psychosocial Needs: None FREEDOM OF CHOICE EXPLAINED: No - No placements necessary POTENTIAL TRANSITION PLANS Home Met with pt bedside, introduced self and role of case manage ment. Pt states he plans to return to his own home at discharge. Pt s tates he has no skilled services in place, no DME other than grab bars, a nd denies need for services/referrrals at d/c. During assessment pt noted t hat his in Jun 2019, pt was appropriately tearful throu ghout the conversation appeared to appreciate the opportunity to share fond memories. Pt states he is independent with ADL's and IADL's at baseline. Pt states his family will transport him home. Anticipate bas ic discharge. Case management to remain available if discharge planning ne eds arise. SIGNATURE: GRETA Burkett PATIENT NAME: Tye darden DATE: September 22, 2019 TIME: 11:31 AM PAGER/CONTACT #: [phone] basic metabolic panl on 2019-09-22 Anion gap [Moles/Vol] 11 9-18 mmol/L Normal 09-22-20 19 [facility] ([id number]) Comment: Performed By: #### BMP ####[facility] [address] [place] [phone] Calcium [Mass/Vol] 8.9 8.5-10.2 mg/dL Normal 09-22-2019 [facility] (98281) Comment: Performed By: #### BMP ####[facility] [address] [place] [phone] Chloride [Moles/Vol] 103 97-105 mmol/L Normal 9 [facility] (64292) Comment: Performed By: #### BMP ####[facility] [address] [place] [phone] CO2 [Moles/Vol] 27 22-30 mmol/L Normal 09-22-2019 [facility] (65510) Comment: Performed By: #### BMP ####[facility] [address] [place] [address] Creatinine [Mass/Vol] 0.84 0.73-1.22 mg/dL Normal 09-22-20 19 [facility] (72715) Comment: Performed By: #### BMP ####[facility] [address] [place] [address] eGFR- Amer. >60 Normal 09-22-2019 [facility] (72293) Comment: Performed By: #### BMP ####[facility] [address] [place] [address] Performed By: #### Svitlana GUILLORY MP ####[facility] [address] [place] [address] 0 GFR/1.73 sq M predicted >60 mL/min/{1.73_m2} Normal 09-22-2019 [facility] among non-blacks MDRD ([id number]) (S/P/Bld) [Vol rate/Area] Comment: Result Comment: eGFR (Estima carlita GFR) Units of measure: mL/min/1.73 meters squared eGFR is derived from the ree xpressed MDRD Study equation using the following parameters: serum creatinine, age, gender and race. The creatinine assay has been calibrated to be traceable to IDMS. An eGFR <60 mL/min/1.73m2 fo r >3 months is consistent with chronic kidney disease. Refer to KDOQI guidelines for clinical interpretation. In patients with unstable re nal function, e.g. those with acute kidney injury, the eGFR may not accurately reflect actual GFR. Performed By: #### BMP ####M [facility] [address] [place] [address] Performed By: #### Svitlana GUILLORY MP ####[facility] [address] [place] [address] 0 Glucose [Mass/Vol] 121 74-99 mg/dL High 09-22-2019 [facility] (80014) Comment: Result Comment: The [place] Diabetes Association (ADA) provides guidance for cutoff values for fasting glucose and random glucose. The ADA defines fasting as no caloric intake for at least 8 hours. Fas ting plasma glucose results between 100 to 125 mg/dL indicate increased risk for diabetes (prediabetes). Fasting plasma glucose resul ts greater than or equal to 126 mg/dL meet the criteria for diagnosis of diabetes. In the absence of unequivocal hyperglycemia, results should be confirmed by repeat testing. In a patient with classic s ymptoms of hyperglycemia or hyperglycemic crisis, random plasma glucose results greater than or equal to 200 mg/dL meet the criteria for diagnosis of diabetes. Reference: Standards of [facility] in Diabetes 2016, [place] Diabetes Association. Diabetes Care. 2016.39(Suppl 1). Performed By: #### BMP ####M [facility] [address] [place], [place] [phone] Potassium [Moles/Vol] 3.7 3.7-5.1 mmol/L Normal 09-22-[address] [place] [address] ([id number]) Comment: Performed By: #### BMP ####[facility] [address] [place], [place] [phone] Sodium [Moles/Vol] 141 136-144 mmol/L Normal 09-22-2019 [facility] ([id number]) Comment: Performed By: #### BMP ####[facility] [address] [place], [place] [phone] Urea nitrogen [Mass/Vol] 15 9-24 mg/dL Normal 09-22 [facility] (07047) Comment: Performed By: #### BMP ####M [facility] [address] [place], [place] [phone] Anion gap [Moles/Vol] 9 9-18 mmol/L Normal 09-22-[address] [place] [address] (48666) Comment: Performed By: #### CBCDIF, B MP ####[facility] [address] [place], [place] [phone] Calcium [Mass/Vol] 8.5 8.5-10.2 mg/dL Normal 09-22-2019 [facility] (98555) Comment: Performed By: #### CBCDIF, B MP ####[facility] [address] [place] [phone] Chloride [Moles/Vol] 106 97-105 mmol/L High 9 [facility] (22650) Comment: Performed By: #### Svitlana GUILLORY MP ####[facility] [address] [place] [address] 0 CO2 [Moles/Vol] 25 22-30 mmol/L Normal 09-22-2019 [facility] (17885) Comment: Performed By: #### Svitlana GUILLORY MP ####[facility] [address] [place] [address] 0 Creatinine [Mass/Vol] 1.05 0.73-1.22 mg/dL Normal 09-22-20 [facility] ([id number]) Comment: Performed By: #### Svitlana GUILLORY MP ####[facility] [address] [place] [address] 0 Glucose [Mass/Vol] 131 74-99 mg/dL High 09-22-2019 [facility] (24314) Comment: Result Comment: The [place] Diabetes Association (ADA) provides guidance for cutoff values for fasting glucose and random glucose. The ADA defines fasting as no caloric intake for at least 8 hours. Fas ting plasma glucose results between 100 to 125 mg/dL indicate increased risk for diabetes (prediabetes). Fasting plasma glucose resul ts greater than or equal to 126 mg/dL meet the criteria for diagnosis of diabetes. In the absence of unequivocal hyperglycemia, results should be confirmed by repeat testing. In a patient with classic s ymptoms of hyperglycemia or hyperglycemic crisis, random plasma glucose results greater than or equal to 200 mg/dL meet the criteria for diagnosis of diabetes. Reference: Standards of [facility] [place] [facility] in Diabetes 2016, [place] [employer] Association. Diabetes Care. 2016.39(Suppl 1). Performed By: #### Svitlana GUILLORY MP ####[facility] [address] [place] [phone] 0 Potassium [Moles/Vol] 3.8 3.7-5.1 mmol/L Normal 09-22-20 [facility] (12616) Comment: Performed By: #### Svitlana GUILLORY MP ####[facility] [address] [place] [address] 0 Sodium [Moles/Vol] 140 136-144 mmol/L Normal 09-22-2019 [facility] (48767) Comment: Performed By: #### Svitlana GUILLORY MP ####[facility] [address] [place] [phone] Urea nitrogen [Mass/Vol] 18 9-24 mg/dL Normal 09-22 [facility] ([id number]) Comment: Performed By: #### Svitlana GUILLORY MP ####[facility] [address] [place] [phone] xr chest 1v frontal port on 2019-09-21 XR CHEST 1V * * *Final Report* * * Normal 09-21 [facility] FRONTAL PORT DATE OF EXAM: Sep 21 2019 7:05AM ([id number]) MDX [id number] - XR CHEST 1V FRONTAL PORT / PROCEDURE REASON: Preoperative assessment * * * * Physician Interpretation * * * * Portable chest x-ray: HISTORY: Preoperative assessment FINDINGS: The cardiac-pericardial silhouette is within maggie l limits. No evidence of infiltrate, vascular redistribution, or pleural effusion. IMPRESSION: No acute finding [facility] Transcribe Date/Time: Sep 21 2019 7:09A Dictated by : MERT SHORE MD This examination was interpreted and the report reviewed and electronically signed by: MERT SHORE MD on Sep 21 2019 7:10AM EST [id number] type and screen on 2019-09-21 ABO/RH(D) O POSITIVE Normal 09-21-2019 [facility] ([id number]) Comment: Performed By: #### TSCR #### [facility] [address] [place] [phone] surgical pathology on 2019-09-21 SURGICAL Specimen originated from [facility] Normal 09-21-2019 [place] Specimen #: [id number] Hospital Submitting Physician: ARON MENA MD ([id number]) FINAL DIAGNOSIS Left femoral artery, endarterectomy - Calcified fibroatherom atous plaque. CDT/lh/09-24-2019 COMMENT A Movat stain was performed to assess for the presence of me dial tissue with adequate control. The Movat stain shows calcified fibro atheromatous plaque focally surrounded by split thickness muscular-type a rterial media. Galilea Hadley M.D. (Electronic Signature) SPECIMEN SUBMITTED A: LEFT FEMORAL ARTERY PLAQUE CLINICAL DATA PAD (PERIPHERAL ARTERY DISEASE); LEFT FEMORAL ENDARTERECTOMY GROSS DESCRIPTION A. Received fresh is a hadley-red segment of plaque labeled le ft femoral artery plaque measuring 6.2 x 1.2 x 1.0 cm. A moderate degr ee of calcification is present. Thrombi are not identified. Repres entative sections are submitted in cassette A1 in formalin following decalcification. ERLIN/geovany 09/22/2019 Gross examination performed at [facility], [address] [place] [address] Date of Report: 09/24/2019 Date of Procedure: 09/21/2019 Date of Receipt: 09/21/2019 Submitted by: ARON MENA MD Location: [address] [place] [address] Diagnostic interpretation performed at [facility], [address] [place] [address]. CLIA Number: [id number] staph aureus pcr on 2019-09-21 MRSA PCR Negative for MRSA by PCR. Normal [facility] ([id number]) Comment: Performed By: #### SAPCR ### #[facility] [address]anyy[address]48 [phone] Hospital[address] [place] [phone] S aureus Spec Source Nasal Normal [facility] (00718) Comment: Performed By: #### SAPCR ### #[facility] Pufuznsson7597 [address] [phone] Hospital[address] [place] [phone] Staph aureus PCR Negative for Normal 09-21-2019 [facility] Staphylococcus aureus by ([id number]) PCR. Comment: Performed By: #### SAPCR ### #[facility] [address] [place] [id number] [address] [place], [place] [phone] pt ed on 2019-09-21 PT ED HNO ID: [id number] Normal 09-21-2019 [facility] ([id number]) Author: Liliya (Rn) EMILIANO Hurtado Service: Nursing Author Type: Registered Nurse Type: Patient Education Filed: 09/21/2019 7:22 AM Note Text: PRE OP LEARNING ASSESSMENT PROCEDURE/SURGERY: SURGERY: left femoral endarterectomy READINESS TO LEARN COGNITIVE ABILITY: Alert and oriented MOTIVATION TO LEARN: Eager Interested FAMILY SUPPORT: High - Very involved in pt care PATIENT LEARNS BEST BY: Individual Instruction Verbal Instruction Multiple Methods FACTORS AFFECTING LEARNING: None PHYSICAL LIMITATIONS AFFECTING LEARNING: None Electronically Signed By: Liliya Hurtado RN In Department: [facility] SURGERY protime on PT Coag (PPP) [Time] 1.0 0.9-1.3 s Normal 9 [facility] ([id number]) Comment: Result Comment: Vitamin K An tagonist (VKA) Therapeutic Range: INR 2 to 3 (Target INR of 2.5) Note: For patients treated w ith VKA drugs, such as warfarin, the [place] 2012 Guideline recommends a therapeutic INR range of 2 to 3 (target INR of 2.5). This recommendation includes high-risk patients with antiphospholipid syndrome with previous arterial or venous thromboembolism, current-generation mechanical or bioprosthetic aortic heart valve replacement. Note: Patients with aluminum siding mechanic al aortic valve replacement and additional risk factors for thromboembolic events (atrial fibrillation, previous thromboembolism, LV dysfunction, hypercoagulable conditions) or an older generation mecha nical AVR (i.e., ball in-Cage) or any mechanical MVR should have a INR therapeutic range of 2.5 to 3.5 (target INR of 3). Manisha JORGENSEN, et al. Chest 2012 , 141:7S-47S Ignacio DAILEY et al. [facility] 20 , 70: [phone] Performed By: #### CBC, PT, PTT, BMP ####[facility] [id number] [phone] PT Coag (PPP) [Time] 11.0 9.7-13.0 sec Normal 9 [facility] ([id number]) Comment: Performed By: #### CBC, PT, PTT, BMP ####[facility] [address] [phone] 0 operative no on 201 06-25-09 OPERATIVE NO HNO ID: [id number] Normal 09-21-20 [facility] Author: Aron Mena ([id number]) Service: Vascular Surgery Author Type: Physician Type: Operative Report Filed: 09/22/2019 12:54 PM Note Text: [facility] - Operative Report TYE VAZQUEZ : 1940 AGE: 79. SEX: M PATIENT TYPE: I HOSP [facility]: TERRE HAUTE LOCATION: [facility] ATTENDING PHYSICIAN: ARON MENA CSN NUMBER: [id number] DATE OF SURGERY/PROCEDURE: 09/21/2019 INCISION/PROCEDURE START TIME: 9:11 AM INCISION CLOSE/PROCEDURE END TIME: 2:46 PM PREOPERATIVE DIAGNOSIS: Peripheral arterial disease, left to e rest pain. POSTOPERATIVE DIAGNOSIS: Peripheral arterial disease, left t oe rest pain. SURGEON: Aron Mena M.D. CLOTH WEAVER: Nathalie Main and Opal Armendariz. SURGERY/PROCEDURE: Left common, superficial and profunda fem oral endarterectomy with patch angioplasty. ANESTHESIA: General. FINDINGS: None. SPECIMENS: Left femoral artery plaque. COMPLICATIONS: None. IMPLANTS: Bovine pericardial patch. CONDITION: Stable. DESCRIPTION OF PROCEDURE: The patient was brought into the o perating room. The patient received placement of arterial line with a nesthesia and subsequently underwent induction of anesthesia. He recei jesse placement of a Schreiber catheter. The patient's left groin and left lower extremity were subsequently prepped and draped in standard s terile fashion. He received perioperative antibiotics. A time-out w as had been called confirming the patient's identity and type of procedu re. At this point, incision was planned overlying the left common femora l artery with a plan to extend this distally to expose as well the proxima l aspect of the superficial femoral artery. The patient's preoperative i maging had revealed extensive circumferential calcification involving t he left common femoral artery which extended into the profunda femoris wher e there was a high-grade stenosis as well as into the superficial femoral artery which showed tandem moderate grade stenoses at its proximal aspect . With the patient prepped and draped, decision was made to proceed wit h surgery. An incision was then planned extending from the inguinal cre ase down to approximately 12 cm below the inguinal crease. Incision was made and dissection continued through the subcutaneous tissue. The ly mphatics were appropriately clamped and appropriately tied off. There was scarring present consistent with history of prior hernia rep air. The common femoral artery was exposed as was the superficial fem oral artery for a length of approximately 12 cm until a soft segment was reached as well as the profunda femoris artery down to its first order branches. At this point, with the artery appropriately exposed and vascul ar control obtained using vessel loops, the patient had been systemical ly heparinized. ACTs were checked throughout the duration of th e case and used to maintain a therapeutic value. At this point, with va scular control established using clamps as well as the vessel loops , as needed, a #11 scalpel was used to create the arteriotomy. This was e xtended with the Velez scissors. This was extended from the common femora l artery down into the superficial femoral artery as well as into the profunda femoris. Endarterectomy was successfully performed and was h anded off the field. A smooth transition was achieved into the superficial femoral artery and this was tacked down with 6-0 Prolene sutures. Th e common femoral artery was as well tacked as was the profunda femori s. At this point, a bovine patch was brought onto the field. This was a ppropriately fashioned into a pants-like configuration allowing extension of the patch into the profunda femoris and superficial femoral arteries f rom the common femoral artery. The anastomosis was started at the bifurcati on of the vessels using a 5-0 Prolene. Anastomosis was then continued along the entire course of the profunda femoris up into the common fem oral and subsequently from the common into the superficial femoral ar jose. Prior to completion, back bleeding was confirmed and was noted to be excellent for both the profunda femoris vessels and the superficial fe moral artery. Forward bleeding was demonstrated from the external iliac ar jose, which had been dissected up to the iliac circumflex branches. Ther e was excellent forward bleeding appreciated and at this point, de cision was made to proceed with completion of the anastomosis. The site was then irrigated with heparinized solution. The anastomosis was com pleted and flow was reintroduced into the superficial femoral artery an d subsequently into the profunda branches. Hemostasis was subsequently achieved using Gelfoam thrombin. A Doppler was used to interrogate both the profunda femoral branches s uperficial femoral artery as well as the dorsalis pedis artery, which d emonstrated significant improvement in the signal. At this point, the pr ocedure was deemed to have been successfully completed, given improvemen t in perfusion. The surgical site was inspected. The patient had received protamine at this time with hemostasis present, the Gel-Foam thrombin was removed. The site was irrigated with normal saline and dried . Hemostasis was present. Decision was made to proceed with case completi on. The groin site was then closed in multiple layers using 2-0 Vicr yl followed by 3-0 Vicryl and the skin was closed with 4-0 Monocryl. Elda gical glue was applied followed by application of Prevena and the patie nt was subsequently brought out of anesthesia and brought to the U in stable condition for close observation. Aron Mena M.D. DK:[id number] /[id number] nursing prog on 06-25-09 NURSING HNO ID: [id number] Normal 09-21-2019 [facility] Author: Jon LantiguaRn) EMILIANO [facility] Service: Nursing ([id number]) Author Type: Registered Nurse Type: Nursing Progress Note Filed: 09/21/2019 4:00 PM Note Text: Nursing Progress Note Patient Name: Tye Vazquez Patient Location: [facility]-2129/[id number] Daily Note: 09/21/19 1300: From OR to ICU-1 post L femoral endarterectomy. L radi al A-line patent and zeroed. L femoral dressing intact with wound vac in place and functional. Distal pulse and neuro checks intact BLE. VSS, b ut titrated to 55% VM for marginal sats. No s/s acute distress. Oriented to room and call light. This note was completed by: Jon Brunson RN history physical on 2019-09-21 HISTORY HNO ID: [id number] Normal 09-21-2019 [facility] Author: [facility] Service: Vascular Surgery ([id number]) Author Type: Physician Type: HANDP Filed: 09/21/2019 8:13 AM Note Text: HISTORY AND PHYSICAL EXAMINATION SERVICE DATE: 09/21/2019 SERVICE TIME: 800 PRIMARY CARE PHYSICIAN: Talon Bolaños MD Subjective CHIEF COMPLAINT: PAD, rest pain HPI: This is a 79 year old male who presents for left profun da and superficial femoral artery endarterectomy for complaints of left halux rest pain. Underwent cardiac stress test, negative for inducible ischem ia, low risk scan. No new complaints. PAST MEDICAL HISTORY Diagnosis Date - Benign neoplasm of colon - Benign neoplasm of rectum and anal canal - Clostridium difficile colitis 05/14/2017 - DDD (degenerative disc disease), lumbar 11/07/2016 - Diarrhea - Esophageal reflux 08/29/2006 - Essential hypertension, benign - Inguinal hernia without mention of obstruction or gangrene , unilateral or unspecified, (not specified as recurrent) 10/11/2008 - Mixed hyperlipidemia 09/02/2006 - Nonspecific (abnormal) findings on radiological and other examination of abdominal area, including retroperitoneum - PAD (peripheral artery disease) (HCC) - Prostate cancer (HCC) - 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. - Umbilical hernia without mention of obstruction or gangren e 10/11/2008 PAST SURGICAL HISTORY Procedure Laterality Date - COLONOSCOP W/ OR W/O [facility] SPEC 04/26/2014 Colonoscopy - COLONOSCOP W/ OR W/O [facility] SPEC 05/07/16 Colonoscopy - COLONOSCOPY AND POLYPECTOMY 05/15/10 tubular adenomas removed- [facility] - LAMINECTOMY,>2 SGMT,LUMBAR 06/11/2018 [facility] [place] - PAST SURGICAL HISTORY OF 2001 bilat cataracts, retina - RECONSTRUCT PROX HUMERAL IMPLANT Right 1993 Arthroplasty, shoulder right x 2. 1991, 1993. - REPAIR ING HERNIA,5+Y/O,REDUCIBL 11/26/2008 left - REPAIR ING HERNIA,5+Y/O,REDUCIBL 01/20/2018 Hernia repair, inguinal right, indirect w/medium mesh plug [facility] - REPAIR UMBILICAL ALBERT,5+Y/O,REDUC 11/26/2008 - SEED IMPLANT 05/2010 for prostate cancer - SIGMOIDOSCOPY FLEX DIAG 12/05/10 FAMILY HISTORY Problem Relation Age of Onset - Diabetes Brother skin cancer - Prostate Cancer Brother - Stroke Mother - Blood Disease Father - Coronary Artery Disease Brother - other (Other) Brother paraplegia Social History Tobacco Use - Smoking status: Current Every Day Smoker Years: 30.00 Types: Cigarettes - Smokeless tobacco: Never Used - Tobacco comment: 2-3 per day Substance Use Topics - Alcohol use: Yes Alcohol/week: 7.5 standard drinks Types: 3 Glasses of Wine (5oz) per week Comment: 1/2 oz at night - Drug use: No lisinopril (ZESTRIL, PRINIVIL) 20 mg tablet, Take 1 tablet b y mouth every evening., Disp: 7 tablet, Rfl: 0, 09/20/2019 at 2200 lisinopril-hydrochlorothiazide (PRINZIDE,ZESTORETIC) 20-12.5 mg per tablet, Take 1 tablet by mouth every morning., Disp: 7 table t, Rfl: 0, 09/20/2019 at 0800 amLODIPine (NORVASC) 10 mg tablet, Take 1 tablet by mouth on ce daily., Disp: 7 tablet, Rfl: 0, 09/21/2019 at 0500 metoprolol tartrate, short acting, (LOPRESSOR) 50 mg tablet, Take 1 tablet by mouth twice daily., Disp: 14 tablet, Rfl: 0, 09/21/2019 at 0500 clopidogrel (PLAVIX) 75 mg tablet, Take 1 tablet by mouth on ce daily., Disp: 7 tablet, Rfl: 0, 09/20/2019 at 0800 cilostazol (PLETAL) 50 mg tablet, Take 1 tablet by mouth twi ce daily., Disp: 14 tablet, Rfl: 0, 09/20/2019 at 2200 omeprazole (PRILOSEC) 20 mg capsule, Take 1 capsule by mouth once daily., Disp: 7 capsule, Rfl: 0, 09/21/2019 at 0500 atorvastatin (LIPITOR) 10 mg tablet, Take 1 tablet by mouth once daily., Disp: 7 tablet, Rfl: 0, 09/20/2019 at 2200 cyclobenzaprine (FLEXERIL) 10 mg tablet, Take 1 tablet by ms ut at bedtime as needed for Muscle Spasm., Disp: 30 tablet, Rfl: 0, 019 at 0800 gabapentin (NEURONTIN) 300 mg capsule, 1 capsule in the morn ing. Continue 2 capsules at bedtime. (Patient taking differently: 2 capsul es at bedtime. ), Disp: 270 capsule, Rfl: 3, 09/20/2019 at 2200 meloxicam (MOBIC) 15 mg tablet, Take 1 tablet by mouth once daily as needed (joint pains.). Take with food., Disp: 30 tablet, Rfl : 1, 09/20/2019 at 0800 aspirin, enteric coated (ASPIRIN, ENTERIC COATED) 81 mg EC t ablet, Take 81 mg by mouth once daily., Disp: , Rfl: , 09/18/2019 triamcinolone acetonide (KENALOG) 0.5 % cream, Apply 1 appli cation to affected area twice daily. For rash/itching. Apply sparingly . Avoid face/skin fold., Disp: 30 g, Rfl: 0, 2-3 mths ago ALLERGIES No Known Allergies COMPLETE REVIEW OF SYSTEMS: GENERAL: no malaise Remainder ROS as per HPI Objective PHYSICAL EXAM: Physical Exam Performed: GENERAL: Alert, no distress, cooperative LUNGS: CTA CARDIAC: regular rate EXTREMITIES: motor/sensory grossly intact in bilateral feet BP 142/69 Pulse 67 Temp (Src) 97.9 (Temporal Artery) R johana 18 SpO2 98% O2 Therapy: Room Air DATA: Diagnostic tests reviewed for today's visit: Most recent labs Assessment/Plan 79 y/o male with PMH smoking, PAD, plan for left femoral art heather endarterectomy. Risks/benefits discussed including but not limited to bleedi ng, infection, wound complication, worsening limb ischemia. Understanding this he wished to proceed to help alleviate hi s complaints. 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 During this time I personally acquired and independently verified reports, reviewing labs, Xrays; discu ssing with other physicians involved in the care of the patient and dev eloped a plan of care with the bedside nurse. This time with is exclusive of separately billable procedures and the treatment of other patients. Add itionally this care required my full attention and direct personal manageme nt on periods of time which in aggregate reflected that amount stated and without which rapid deterioration could or would have occurred. [LEVEL III] DISPOSITION: Continue Intensive care unit CODE STATUS: Full PAST MEDICAL HISTORY Diagnosis Date - Benign neoplasm of colon - Benign neoplasm of rectum and anal canal - Clostridium difficile colitis 05/14/2017 - DDD (degenerative disc disease), lumbar 11/07/2016 - Diarrhea - Esophageal reflux 08/29/2006 - Essential hypertension, benign - Inguinal hernia without mention of obstruction or gangrene , unilateral or unspecified, (not specified as recurrent) 10/11/2008 - Mixed hyperlipidemia 09/02/2006 - Nonspecific (abnormal) findings on radiological and other examination of abdominal area, including retroperitoneum - PAD (peripheral artery disease) (HCC) - Prostate cancer (HCC) - 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. - Umbilical hernia without mention of obstruction or gangren e 10/11/2008 PAST SURGICAL HISTORY Procedure Laterality Date - COLONOSCOP W/ OR W/O [facility] SPEC 04/26/2014 Colonoscopy - COLONOSCOP W/ OR W/O [facility] SPEC 05/07/16 Colonoscopy - COLONOSCOPY AND POLYPECTOMY 05/15/10 tubular adenomas removed- [place] - LAMINECTOMY,>2 SGMT,LUMBAR 06/11/2018 [facility] - PAST SURGICAL HISTORY OF 2001 bilat cataracts, retina - RECONSTRUCT PROX HUMERAL IMPLANT Right 1993 Arthroplasty, shoulder right x 2. 1991, 1993. - REPAIR ING HERNIA,5+Y/O,REDUCIBL 11/26/2008 left - REPAIR ING HERNIA,5+Y/O,REDUCIBL 01/20/2018 Hernia repair, inguinal right, indirect w/medium mesh plug [facility] - REPAIR UMBILICAL ALBERT,5+Y/O,REDUC 11/26/2008 - SEED IMPLANT 05/2010 for prostate cancer - SIGMOIDOSCOPY FLEX DIAG 12/05/10 Family History Problem Relation Age of Onset - Diabetes Brother skin cancer - Prostate Cancer Brother - Stroke Mother - Blood Disease Father - Coronary Artery Disease Brother - other (Other) Brother paraplegia Current Facility-Administered Medications Medication Dose Route Frequency Provider Last Rate Last Dose - NaCl 0.9% iv infusion 75 mL/hr INTRAVENOUS CONTINUOUS Luciano Mena - ondansetron orally disintegrating 4 mg tab(s) (ZOFRAN ODT) 4 mg ORAL q 6 H PRN Aron Mena Or - ondansetron (PF) 4 mg injection (ZOFRAN) 4 mg INTRAVENOUS q 6 H PRN Aron Mena - acetaminophen 325 mg tab(s) (TYLENOL) 325 mg ORAL q 6 H HI N Aron Mena - oxyCODONE-acetaminophen 5-325 mg 1-2 tablet (PERCOCET) 1-2 tablet ORAL q 4 H PRN Aron Mena - morphine 2 mg injection 2 mg INTRAVENOUS q 4 H PRN Aron Mena - sucralfate 1 g tab(s) (CARAFATE) 1 g ORAL/FEEDING TUBE q 6 H Aron Mena - ceFAZolin iv piggyback 2 g in D5W (iso-osmotic) 100 mL (AN CEF) 2 g INTRAVENOUS q 8 HR Aron Mena - [START ON 09/22/2019] lisinopril-hydrochlorothiazide 20-12 .5 mg 1 tablet (PRINZIDE,ZESTORETIC) 1 tablet ORAL DAILY Aron Mena - gabapentin 900 mg cap(s) (NEURONTIN) 900 mg ORAL q 12 H Da nikki Mena - atorvastatin 10 mg tab(s) (LIPITOR) 10 mg ORAL DAILY Maxi Mena - [START ON 09/22/2019] lisinopril 20 mg tab(s) (ZESTRIL, HI INIVIL) 20 mg ORAL DAILY Aron Mena - metoprolol tartrate (short acting) 50 mg tab(s) (LOPRESSOR ) 50 mg ORAL BID Aron Mena - [START ON 09/22/2019] amLODIPine 10 mg tab(s) (NORVASC) 10 mg ORAL DAILY Aron Mena - aspirin, enteric coated 81 mg tab(s) 81 mg ORAL DAILY Luciano Mena - clopidogrel 75 mg tab(s) (PLAVIX) 75 mg ORAL DAILY Aron Mena - cyclobenzaprine 10 mg tab(s) (FLEXERIL) 10 mg ORAL HS PRN Aron Mena CBC, Coags, BMP, Mg, Phos Recent Labs 09/21/19 0655 WBC 6.50 HB 14.1 HCT 40.0 PLT 254 INR 1.0 APTT 32.0 NA 140 K 3.6* CHLOR 100 CO2 28 BUN 20 CREAT 1.29* GLUC 92 CA 9.8 Patient Vitals for the past 24 hrs: BP Temp Temp src Pulse Resp SpO2 09/21/19 0709 142/69 36.6 ?C (97.9 ?F) Temporal Art 67 18 98 % IMPRESSION / CURRENT ISSUES : Seriously ill 79year old male admitted to [place] Int[facility] are unit on 09/21/19 s/p Left common, superficial and profunda femoral endarterectomy, patch angioplasty for postoperative managem ent. Intraoperative course uneventful, extubated at end of sx in OR. As per review of EMR, PMH significant for PAD, smoking. At present, pt's BP and HR wnl, not requiring pressor suppor t, awake and alert, maintaining oxygen saturation on NC @ 4-5 L/m. Respiratory insufficiency-acute postop Pain -Acute postoperative B/l atelectasis Reason for consult: PMH as above. ROS as documented within notes below. PHYSICAL EXAM: BP 142/69 Pulse 67 Temp 36.6 ?C (97.9 ?F) (Temporal Ericka ry) Resp 18 SpO2 98% Neuro:AAO x 3 Lungs:CTAB CV:RRR Abd:Soft, NT Extremities:JAVIER, sx site c/d/i, wound vac in place PLAN / INTERVENTIONS: Follow up postoperative labs and continue resuscitation. Follow up vascular sx recommendations regarding neuro-vascul ar checks. Prn opioids and multimodal pain control regimen Maintain day/night cycle, avoid BDZ, anticholinergics, anti- histamines Continue fluid support and hemodynamic monitoring Periop prophylaxis per ICU Checklist Last Documented/Reviewed time: 09/21/2019 3:38 PM ICU Delirium Status: CAM Negative - no action required Restraint Status: None ICU Mobility-Pt Has Been Out of Bed: No - Specify Line Status: Arterial line Arterial Line Status: Reason to maintain Arterial Line Reason to Maintain: Hemodynamic monitoring Ventilator: None Schreiber Status: Present, will maintain Schreiber Status Details: Accurate measurement of urine output GI/Stress Ulcer Prophylaxis: None - not required Nutrition is at Goal: Yes VTE Prophylaxis: Chemoprophylaxis: No chemoprophylaxis Mechanical Prophylaxis : Knee high SCD No Chemoprophylaxis Reason: Bleeding risk Pressure Injury Status: None ICU Plan Reviewed with RN: Yes ICU Family Update in Last 24 Hours: Patient updated ICU Disposition- Is Patient Clinically Ready to Transfer to [facility] or SDU?: No Discharge Planning: Home SIGNATURE: Carlota Moya MD DATE: September 21, 2019 TIME: 3:38 PM cbc on 2019-09-21 Erythrocyte distribution 12.0 11.5-15.0 % Normal 09-21 [facility] ([id number]) width (RBC) [Ratio] Comment: Performed By: #### CBC, PT, PTT, BMP ####[facility] [id number] [place] [id number] 0 Hematocrit (Bld) [Volume 40.0 39.0-51.0 % Normal 09-21 [facility] ([id number]) fraction] Comment: Performed By: #### CBC, PT, PTT, BMP ####[place] [address] 0 Hemoglobin (Bld) 14.1 13.0-17.0 g/dL Normal 09-21-2019 [facility] [Mass/Vol] ([id number]) Comment: Performed By: #### CBC, PT, PTT, BMP ####[place] [address] 0 MCH (RBC) [Entitic mass] 32.6 26.0-34.0 pG Normal 09-21 [facility] ([id number]) Comment: Performed By: #### CBC, PT, PTT, BMP ####[place] [address] 0 MCHC (RBC) [Mass/Vol] 35.3 30.5-36.0 g/dL Normal 09-21-20 19 [facility] ([id number]) Comment: Performed By: #### CBC, PT, PTT, BMP ####[place] [address] 0 MCV (RBC) [Entitic vol] 92.4 80.0-100.0 fL Normal 09-21 [facility] ([id number]) Comment: Performed By: #### CBC, PT, PTT, BMP ####[place] [address] 0 Platelet mean volume (Bld) 10.4 9.0-12.7 fL Normal [facility] ([id number]) [Entitic vol] Comment: Performed By: #### CBC, PT, PTT, BMP ####[place] [address] 0 Platelets (Bld) [#/Vol] 254 150-400 k/uL Normal 2018 [facility] ([id number]) Comment: Performed By: #### CBC, PT, PTT, BMP ####[place] [address] 0 RBC (Bld) [#/Vol] 4.33 4.20-6.00 m/uL Normal 09-21-2019 [facility] ([id number]) Comment: Performed By: #### CBC, PT, PTT, BMP ####[facility] [id number] [place] [address] 0 WBC (Bld) [#/Vol] 6.50 3.70-11.00 k/uL Normal 09-21-2019 [facility] ([id number]) Comment: Performed By: #### CBC, PT, PTT, BMP ####[place] [address] 0 basic metabolic panl on 2019-09-21 Anion gap [Moles/Vol] 12 9-18 mmol/L Normal 09-21-20 [facility] ([id number]) Comment: Performed By: #### CBC, PT, PTT, BMP ####[place] [address] 0 Calcium [Mass/Vol] 9.8 8.5-10.2 mg/dL Normal 09-21-2019 [facility] ([id number]) Comment: Performed By: #### CBC, PT, PTT, BMP ####[place] [address] 0 Chloride [Moles/Vol] 100 97-105 mmol/L Normal [facility] ([id number]) Comment: Performed By: #### CBC, PT, PTT, BMP ####[place] [address] 0 CO2 [Moles/Vol] 28 22-30 mmol/L Normal 09-21-2019 [facility] ([id number]) Comment: Performed By: #### CBC, PT, PTT, BMP ####[place] [address] 0 Creatinine [Mass/Vol] 1.29 0.73-1.22 mg/dL High 09-21-20 [facility] ([id number]) Comment: Performed By: #### CBC, PT, PTT, BMP ####[place] [address] 0 eGFR- Amer. >60 Normal 09-21-2019 [facility] ([id number]) Comment: Performed By: #### CBC, PT, PTT, BMP ####[place] [phone] GFR/1.73 sq M predicted among 54 . Normal 09-21-2019 [facility] ([id number]) non-blacks MDRD (S/P/Bld) [Vol rate/Area] Comment: Result Comment: eGFR (Estima carlita GFR) Units of measure: mL/min/1.73 meters squared eGFR is derived from the ree xpressed MDRD Study equation using the following parameters: serum creatinine, age, gender and race. The creatinine assay has been calibrated to be traceable to IDMS. An eGFR <60 mL/min/1.73m2 fo r >3 months is consistent with chronic kidney disease. Refer to KDOQI guidelines for clinical interpretation. In patients with unstable re nal function, e.g. those with acute kidney injury, the eGFR may not accurately reflect actual GFR. Performed By: #### CBC, PT, PTT, BMP ####[facility] [id number] [place] [phone] Glucose [Mass/Vol] 92 74-99 mg/dL Normal 09-21-2019 [facility] ([id number]) Comment: Result Comment: The [place] [employer] (ADA) provides guidance for cutoff values for fasting glucose and random glucose. The ADA defines fasting as no caloric intake for at least 8 hours. Fas ting plasma glucose results between 100 to 125 mg/dL indicate increased risk for diabetes (prediabetes). Fasting plasma glucose resul ts greater than or equal to 126 mg/dL meet the criteria for diagnosis of diabetes. In the absence of unequivocal hyperglycemia, results should be confirmed by repeat testing. In a patient with classic s ymptoms of hyperglycemia or hyperglycemic crisis, random plasma glucose results greater than or equal to 200 mg/dL meet the criteria for diagnosis of diabetes. Reference: Standards of [facility] [place] [facility] in Diabetes 2016, [place] [employer]. Diabetes Care. 2016.39(Suppl 1). Performed By: #### CBC, PT, PTT, BMP ####[facility] [phone] Potassium [Moles/Vol] 3.6 3.7-5.1 mmol/L Low 09-21-20 19 [facility] ([id number]) Comment: Performed By: #### CBC, PT, PTT, BMP ####[facility] [id number] [place] [phone] Sodium [Moles/Vol] 140 136-144 mmol/L Normal 09-21-2019 [facility] ([id number]) Comment: Performed By: #### CBC, PT, PTT, BMP ####[facility] [id number] [place] [phone] Urea nitrogen [Mass/Vol] 20 9-24 mg/dL Normal 09-21 [facility] ([id number]) Comment: Performed By: #### CBC, PT, PTT, BMP ####[facility] [id number] [place] [phone] aptt on 2019-09-21 aPTT Coag (Bld) [Time] 32.0 23.0-32.4 sec Normal 019 [facility] ([id number]) Comment: Result Comment: Unfractionat ed Heparin Therapeutic Ranges: Standard Heparin Nomogram: 5 3 to 78 seconds (anti-Xa level of 0.3 to 0.7 U/ml) Low Dose/ACS Nomogram: 49 to 67 seconds (anti-Xa level of 0.2 to 0.5 U/ml) Stroke Treatment Nomogram: 4 9 to 67 seconds (anti-Xa level of 0.2 to 0.5 U/ml) Note: The APTT therapeutic r lucio has been determined for the current lot of laboratory APTT reagent in use throughout the [facility]. Performed By: #### CBC, PT, PTT, BMP ####[facility] [id number] [place] [phone] anes preop on 09-21 ANES PREOP HNO ID: [id number] Normal 09-21-2019 [facility] Author: Bony Mishra ([id number]) Service: Anesthesiology Author Type: Anesthesiologist Type: Anesthesia PreOp Filed: 09/21/2019 7:02 AM Note Text: ANESTHESIOLOGY DAY OF SURGERY NOTE SERVICE DATE: 09/21/2019 SERVICE TIME: 7:01 AM : 1940 Procedure(s) (LRB): ENDARTERECTOMY FEMORAL / LEFT (Left) Surgeon(s): Aron Mena Estimated body mass index is 25.37 kg/m? as calculated from the following: Height as of 09/18/19: 170.2 cm (5' 7). Weight as of 09/18/19: 73.5 kg (162 lb). Most recent hematocrit and potassium results: Hematocrit 41.7 09/15/2019 Potassium 3.3 09/15/2019 ANES DOS/PREOP NOTE: Vitals: There were no vitals filed for this visit. 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 Intermittent Claudication (Hcc) Pad (Peripheral Artery Disease) (Hcc) PAST MEDICAL HISTORY Diagnosis Date - Benign neoplasm of colon - Benign neoplasm of rectum and anal canal - Clostridium difficile colitis 05/14/2017 - DDD (degenerative disc disease), lumbar 11/07/2016 - Diarrhea - Esophageal reflux 08/29/2006 - Essential hypertension, benign - Inguinal hernia without mention of obstruction or gangrene , unilateral or unspecified, (not specified as recurrent) 10/11/2008 - Mixed hyperlipidemia 09/02/2006 - Nonspecific (abnormal) findings on radiological and other examination of abdominal area, including retroperitoneum - PAD (peripheral artery disease) (HCC) - Prostate cancer (HCC) - 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. - Umbilical hernia without mention of obstruction or gangren e 10/11/2008 PAST SURGICAL HISTORY Procedure Laterality Date - COLONOSCOP W/ OR W/O [facility] SPEC 04/26/2014 Colonoscopy - COLONOSCOP W/ OR W/O [facility] SPEC 05/07/16 Colonoscopy - COLONOSCOPY AND POLYPECTOMY 05/15/10 tubular adenomas removed- [place] - LAMINECTOMY,>2 SGMT,LUMBAR 06/11/2018 [facility] [place] - PAST SURGICAL HISTORY OF 2001 bilat cataracts, retina - RECONSTRUCT PROX HUMERAL IMPLANT Right 1993 Arthroplasty, shoulder right x 2. 1991, 1993. - REPAIR ING HERNIA,5+Y/O,REDUCIBL 11/26/2008 left - REPAIR ING HERNIA,5+Y/O,REDUCIBL 01/20/2018 Hernia repair, inguinal right, indirect w/medium mesh plug [facility] - REPAIR UMBILICAL ALBERT,5+Y/O,REDUC 11/26/2008 - SEED IMPLANT 05/2010 for prostate cancer - SIGMOIDOSCOPY FLEX DIAG 12/05/10 FAMILY HISTORY Problem Relation Age of Onset - Diabetes Brother skin cancer - Prostate Cancer Brother - Stroke Mother - Blood Disease Father - Coronary Artery Disease Brother - other (Other) Brother paraplegia Social History: Social History Tobacco Use - Smoking status: Current Every Day Smoker Years: 30.00 Types: Cigarettes - Smokeless tobacco: Never Used - Tobacco comment: 2-3 per day Substance Use Topics - Alcohol use: Yes Alcohol/week: 7.5 standard drinks Types: 3 Glasses of Wine (5oz) per week Comment: 1/2 oz at night - Drug use: No No current facility-administered medications on file prior t o encounter. Current Outpatient Medications on File Prior to Encounter Medication Sig - lisinopril (ZESTRIL, PRINIVIL) 20 mg tablet Take 1 tablet by mouth every evening. - lisinopril-hydrochlorothiazide (PRINZIDE,ZESTORETIC) 20-12 .5 mg per tablet Take 1 tablet by mouth every morning. - amLODIPine (NORVASC) 10 mg tablet Take 1 tablet by mouth o nce daily. - metoprolol tartrate, short acting, (LOPRESSOR) 50 mg table t Take 1 tablet by mouth twice daily. - clopidogrel (PLAVIX) 75 mg tablet Take 1 tablet by mouth o nce daily. - cilostazol (PLETAL) 50 mg tablet Take 1 tablet by mouth tw ice daily. - omeprazole (PRILOSEC) 20 mg capsule Take 1 capsule by mout h once daily. - atorvastatin (LIPITOR) 10 mg tablet Take 1 tablet by mouth once daily. - cyclobenzaprine (FLEXERIL) 10 mg tablet Take 1 tablet by m outh at bedtime as needed for Muscle Spasm. - gabapentin (NEURONTIN) 300 mg capsule 1 capsule in the mor jamarcus. Continue 2 capsules at bedtime. (Patient taking differently: 2 capsules at bedtime. ) - meloxicam (MOBIC) 15 mg tablet Take 1 tablet by mouth once daily as needed (joint pains.). Take with food. - triamcinolone acetonide (KENALOG) 0.5 % cream Apply 1 appl ication to affected area twice daily. For rash/itching. Apply sparingly . Avoid face/skin fold. Current Facility-Administered Medications Medication Dose Route Frequency Provider Last Rate Last Dose - lidocaine 10 mg/mL (1 %) 1-2 mg injection (XYLOCAINE) 0.1- 0.2 mL INTRADERMAL PRN Aron Mastersonsavin - ceFAZolin iv piggyback 2 g in D5W (iso-osmotic) 100 mL (AN CEF) 2 g INTRAVENOUS Pre-Op Once Aron Mena - lactated ringers infusion 5-30 mL/hr INTRAVENOUS CONTINUOU S Aron Kassavin Allergies: ALLERGIES No Known Allergies DOS EXAM: Adequate NPO status: Yes Anesthetic risks, benefits, alternatives, personnel and cons ent discussed: Yes Patient agrees to proceed: Yes Previous Anesthesia: No history of adverse event. Airway Assessment: MP 2; Neck ROM: Full ROM without neurolog ic symptoms; Airway Evaluation: No significant abnormalities Symptoms of Sleep Apnea: Tired Dentition: Teeth intact Additional Physical Exam: Lungs: Patient health status unchanged since recent history and physical. See history and physical for exam findings. Cardiac: Patient health status unchanged since recent histor y and physical. See history and physical for exam findings. Additional Pertinent Findings: N/A Blood Products: Not anticipated for this procedure. Anesthetic Plan: General, Standard ASA Monitors, Standard A Monitors and artr line and icuu stay Pain Management Plan: Parenteral or Oral ASA Class: 3 Other Medical Problems: None I have interviewed and examined the patient. I have reviewed the medical record and/or the pre-anesthesia evaluation, pertinent labs, and test results. Significant changes in the patient's condition since the His tory and Physical, not otherwise documented in primary service progre ss notes: No This contains updated information obtained within 48 hours o f Surgery/Procedure. SIGNATURE: Bony Mishra MD PATIENT NAME: Tye Vazquez DATE: September 21, 2019 TIME: 7:01 AM CSN: [id number] anes post on 2018-10 ANES POST HNO ID: [id number] Normal 09-21-2019 [facility] Author: Bony Mishra ([id number]) Service: Anesthesiology Author Type: Anesthesiologist Type: Anesthesia PostOp Filed: 09/21/2019 5:57 PM Note Text: POST ANESTHESIA EVALUATION NOTE SERVICE DATE: 09/21/2019 SERVICE TIME: 5:57 PM : 1940 Vitals: 09/21/19 0709/21/19 1515 Temp: 36.6 ?C (97.9 ?F) 37.3 ?C (99.2 ?F) 09/21/19 0709 09/21/19 1515 09/21/19 1530 09/21/19 1600 Arterial BP 1: 63/32 112/56 120/56 BP: 142/69 107/58 112/61 110/60 09/21/19 0709 09/21/19 1515 09/21/19 1530 09/21/19 1600 Pulse: 67 88 87 87 09/21/19 0709 09/21/19 1515 09/21/19 1530 09/21/19 1600 Resp: 18 21 17 10 09/21/19 0709 09/21/19 1515 09/21/19 1530 09/21/19 1600 SpO2: 98% 93% 95% 97% Validated Vital Signs: Yes POST ANES STATUS: No apparent anesthetic complications. The patient is appropriately hydrated with stable respiratory and cardiovas cular status. Patient has safe and adequate airway control. The patient cordero s appropriate pain relief and no significant post operative nausea or vomi ting. The patient has achieved baseline mental status. Further assessment by Anesthesia Service: None Other Remarks: SIGNATURE: Bony Mishra MD PATIENT NAME: Tye Vazquez DATE: September 21, 2019 TIME: 5:57 PM PAGER/CONTACT #: [phone] allied health on 01-10-09 [facility] HNO ID: [id number] Normal [address] [place] [address] Author: RODGER Hess (Ct) ([id number]) Service: ? Author Type: Clinical Child Psychologist Type: Allied Health Filed: 09/21/2019 7:10 AM Note Text: Radiology Service Progress Note PATIENT NAME: Tye Vazquez DATE OF SERVICE: September 21, 2019 TIME: 7:09 AM PATIENT IDENTITY VERIFICATION COMPLETED USING TWO (2) IDENTI FIERS: Name and Date of confirmed by patient verbally. PATIENT GENDER DATA: Male PATIENT RELEVANT IMPLANT DATA REVIEWED: Not Applicable RADIOLOGY DEPARTMENT: General X-ray: Exam(s) Completed: Ches t X-Ray PERIPHERAL IV DATA: Not applicable SIGNED BY: RODGER Hess September 21, 2019 7:09 AM nursing prog on 06-25-06 NURSING PROG HNO ID: [id number] Normal 09-18-20 [facility] Author: Leighann (Rn) EMILIANO Gomez ([id number]) Service: ? Author Type: Registered Nurse Type: Nursing Progress Note Filed: 09/18/2019 1:43 PM Note Text: PACC Nurse Progress Note History AND Physical: PACC Visit Date: 09/18/19 Original HANDP Date: N/A ED visit Date: N/A Outside HANDP Scanned Date: N/A Labs Within Last 6 Months: CBC: Date 09/15/19-within normal limits BMP/CMP: Date 09/15/19-(serum K-3.3) PT: Date 09/15/19-within normal limits TYPE AND SCREEN, [place]: Date 09/15/19-see chart Imaging Within Last 12 Months: US-bilateral vein mapping. Date of test: 08/17/19 See chart Cardiac Testing: EKG in last 12 Months: 08/25/19, Comment: (NSR) ECHO Date: 08/17/19 Comment: (LV-mild, LVEF-58+5%)-see chart for full report Stress Test-nuclear Date: 08/19/19, Comment: (LV-normal LVEF- 66%, negative)-see chart for full report Last Menstrual Period: LMP Date: N/A Postmenopausal >1yr: N/A, S/P Hysterectomy: N/A BMI Percentile (PEDS): N/A Risk Assessment: Cardiac Date: 08/25/19-office visit with Dr. Traore- H is risk for perioperative cardiac events are low (approximately at 1%) --No further cardiac testing --Proceed with peripheral arterial intervention/surgery unde rstanding benefits and risks. Anesthesia Review: N/A Narrative: Per HPI: Current smoker; PAD with leg claudication- S/P Aort oiliac angiography, left lower extremity angiogram-09/15/19- on Plav ix, baby ASA, Pletal; history of prostate cancer Pre-op Considerations: Anticoagulation: Per Humberto Gee CNP sent a telephone encounter to surgeon to inform took all anticoagulants today and asking about pre op anticoagulation instructions-see telephone encounter. Chart Check: COMPLETED Leighann Gomez RN September 18, 2019 1:33 PM ? ? history physical on 2019-09-18 HISTORY HNO ID: [id number] Normal 09-18-2019 [place] PHYSICAL Author: Mary Jane Ballesteros ([place]) [facility] Service: ? [place] Author Type: Nurse Practitioner ([id number]) Type: HANDP Filed: 10/02/2019 12:11 PM Note Text: HISTORY AND PHYSICAL EXAMINATION SERVICE DATE: 09/18/2019 SERVICE TIME: 11:14 AM PRIMARY CARE PHYSICIAN: Talon Bolaños MD REASON FOR VISIT: Tye Vazquez is a 79 year old male who is scheduled for EN DARTERECTOMY FEMORAL ? / LEFT at the request of Dr. Aron Mena for c onsultation. My final recommendation will be communicated back to the re uesting physician by way of shared medical record or letter. 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 He is s/p angiogram 09/15/[address] Mena. He as well has been having numbness in the bilateral feet ho wever worse on the left, most prominently affecting the great toe. Denies any ulceration or wounds. 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 ? He underwent CTA which suggests a proximal left SFA stenosis with subsequent occlusion of the popliteal artery. No wounds on feet or toes. ? In May 2018 underwent spine surgery which resolved many o f his lower extremity complaints. Subsequently had a fall and has result ed in shoulder injury as well as new onset of left leg pain. ? Prior SAMANTHA 09/2018 1 bilaterally. Smokes few cig/day, had smoked 15 pack years. ? PAST MEDICAL HISTORY Diagnosis Date - Benign neoplasm of colon - Benign neoplasm of rectum and anal canal - Clostridium difficile colitis 05/14/2017 - DDD (degenerative disc disease), lumbar 11/07/2016 - Diarrhea - Esophageal reflux 08/29/2006 - Essential hypertension, benign - Inguinal hernia without mention of obstruction or gangrene , unilateral or unspecified, (not specified as recurrent) 10/11/2008 - Mixed hyperlipidemia 09/02/2006 - Nonspecific (abnormal) findings on radiological and other examination of abdominal area, including retroperitoneum - PAD (peripheral artery disease) (HCC) - Prostate cancer (HCC) - 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. - Umbilical hernia without mention of obstruction or gangren e 10/11/2008 PAST SURGICAL HISTORY Procedure Laterality Date - COLONOSCOP W/ OR W/O [facility] SPEC 04/26/2014 Colonoscopy - COLONOSCOP W/ OR W/O [facility] SPEC 05/07/16 Colonoscopy - COLONOSCOPY AND POLYPECTOMY 05/15/10 tubular adenomas removed- [place] - LAMINECTOMY,>2 SGMT,LUMBAR 06/11/2018 [facility] - PAST SURGICAL HISTORY OF 2001 bilat cataracts, retina - RECONSTRUCT PROX HUMERAL IMPLANT Right 1993 Arthroplasty, shoulder right x 2. 1991, 1993. - REPAIR ING HERNIA,5+Y/O,REDUCIBL 11/26/2008 left - REPAIR ING HERNIA,5+Y/O,REDUCIBL 01/20/2018 Hernia repair, inguinal right, indirect w/medium mesh plug [facility] - REPAIR UMBILICAL ALBERT,5+Y/O,REDUC 11/26/2008 - SEED IMPLANT 05/2010 for prostate cancer - SIGMOIDOSCOPY FLEX DIAG 12/05/10 FAMILY HISTORY Problem Relation Age of Onset - Diabetes Brother skin cancer - Prostate Cancer Brother - Stroke Mother - Blood Disease Father - Coronary Artery Disease Brother - other (Other) Brother paraplegia SOCIAL HISTORY: Social History Tobacco Use - Smoking status: Current Every Day Smoker Years: 30.00 Types: Cigarettes - Smokeless tobacco: Never Used - Tobacco comment: 2-3 per day Substance Use Topics - Alcohol use: Yes Alcohol/week: 7.5 standard drinks Types: 3 Glasses of Wine (5oz) per week Comment: 1/2 oz at night - Drug use: No MEDICATIONS: Prior to Admission medications as of 09/18/19 1104 Medication Sig Last Dose Taking aspirin, enteric coated (ASPIRIN, ENTERIC COATED) 81 mg EC t ablet Take 81 mg by mouth once daily. Taking Yes lisinopril (ZESTRIL, PRINIVIL) 20 mg tablet Take 1 tablet by mouth every evening. Taking Yes lisinopril-hydrochlorothiazide (PRINZIDE,ZESTORETIC) 20-12.5 mg per tablet Take 1 tablet by mouth every morning. Taking Yes amLODIPine (NORVASC) 10 mg tablet Take 1 tablet by mouth onc e daily. Taking Yes metoprolol tartrate, short acting, (LOPRESSOR) 50 mg tablet Take 1 tablet by mouth twice daily. Taking Yes clopidogrel (PLAVIX) 75 mg tablet Take 1 tablet by mouth onc e daily. Taking Yes cilostazol (PLETAL) 50 mg tablet Take 1 tablet by mouth twic e daily. Taking Yes omeprazole (PRILOSEC) 20 mg capsule Take 1 capsule by mouth once daily. Taking Yes atorvastatin (LIPITOR) 10 mg tablet Take 1 tablet by mouth o nce daily. Taking Yes cyclobenzaprine (FLEXERIL) 10 mg tablet Take 1 tablet by fermín th at bedtime as needed for Muscle Spasm. Taking Yes gabapentin (NEURONTIN) 300 mg capsule 1 capsule in the morni ng. Continue 2 capsules at bedtime. Patient taking differently: 2 capsules at bedtime. Taking Yes meloxicam (MOBIC) 15 mg tablet Take 1 tablet by mouth once d aily as needed (joint pains.). Take with food. Taking Yes triamcinolone acetonide (KENALOG) 0.5 % cream Apply 1 applic ation to affected area twice daily. For rash/itching. Apply sparingly . Avoid face/skin fold. Taking Yes No medication comments found. CURRENT ALLERGIES: ALLERGIES No Known Allergies REVIEW OF SYSTEMS: PAIN ASSESSMENT: General: No weight loss, malaise or fevers. Neuro: No history of TIA's, stroke, FISHER HOOP NET tumor, impaired sens orium, hemiplegia, paraplegia or quadraplegia. No neurological symp toms or problems. Respiratory: No history of current cough or dyspnea, or pneu monia in the past 6 weeks. No history of respiratory/pulmonary symptoms o r problems. +Current smoker. Denies asthma, COPD or JANIS. Cardiovascular: Positive for: HLD, Hypertension, Negative fo r Recent TN, Arrhythmia, CAD, Chest Pain, CHF, PVD, Valvular Heart Diseas e, DVT/PE, LE edema or SOB SEE HPI 08/17/2019 Echo CONCLUSIONS: - Technically difficult exam due to body habitus. Poor endoc ardial definition in some views. - Exam indication: Pre op clearance - The left ventricle is normal in size. There is mild upper septal left ventricular hypertrophy. Left ventricular systolic function is normal. EF = 58 ? 5% (2D biplane) Grade I left ventricular diastolic dysfuncti on. Wall motion abnormalities as stated above. - The right ventricle is?normal in size. Right ventricular s ystolic function is normal. - There are no significant valvular abnormalities. - Consider the use of Definity in the future for improved en docardial definition. - The patient has not had a prior CC echocardiographic exam for comparison. 08/19/2019 Stress Test CONCLUSIONS: ?1. SPECT Perfusion Study: Normal. ?2. There is no scintigraphic evidence for inducible ischemi a. ?3. No evidence of scarred myocardium. ?4. Functional capacity N/A (pharmacological). ?5. Left ventricle is normal in size. The left ventricle sys tolic function is normal. ?6. Right ventricle is normal in size. ?7. This is a low risk scan. ?LVEF % 66 GI: Positive for GERD, on rx., Negative for PUD, Nausea, Vom iting, Abdominal pain, Liver disease, ETOH > 2 drinks / day : No history of dysuria, frequency or incontinence,, stone s or chronic kidney disease Endocrine: No history of diabetes. Has not taken steroids wi thin the past 30 days. No history of endocrinological symptoms or problems . Hematology: Chronic anti-coagulation / platelet meds (Aspiri n, Plavix, and Pletal) Denies bleeding/clotting d/o or anemia. Oncology: h/o Prostate Cancer, h/o 2009, PSA levels under bocanegra rveillance Psych: No history of psychiatric symptoms or problems. Musculoskeletal: s/p Laminectomy 2018 Skin: Negative for lesions, rash and itching. Objective PHYSICAL EXAM: VITALS: BP 154/88 Pulse 68 Temp (Src) 98.1 (Temporal Artery) H t 5' 7 (1.70m) Wt 162 lb (73.5kg) SpO2 95% BMI 25.37 kg/(m2). General: Alert and oriented Skin: Normal color, no rash, no lesions. HEENT: EOM, pupils equal, round and reactive. Cardiovascular: Normal S1 AND S2, no rubs, murmurs or gallops. No JVD. Pulse regular. Lungs: Normal breath sounds, no wheezes or crackles. Abdomen: Soft, non-tender, no rigidity. Extremities: No deformity, no edema or tenderness, no joint swelling or clubbing. Neurological: Normal cognition and motor skills. Pulses: Carotid and radial pulses normal +2. Diagnostic tests reviewed for today's visit: Lab Value Units Date High Low HB 14.5 g/dL 09/15/2019 17.0 13.0 HCT 41.7 % 09/15/2019 51.0 39.0 WBC 6.44 k/uL 09/15/2019 11.00 3.70 PLT 244 k/uL 09/15/2019 400 150 NA 140 mmol/L 09/15/2019 144 136 K 3.3 mmol/L 09/15/2019 5.1 3.7 GLUC 86 mg/dL 09/15/2019 99 74 BUN 23 mg/dL 09/15/2019 24 9 CREAT 1.22 mg/dL 09/15/2019 1.22 0.73 PTSEC 10.7 sec 09/15/2019 13.0 9.7 INR 1.0 no uni* 09/15/2019 1.3 0.9 APTT No results within date range. ALT No results within date range. AST No results within date range. TBILI No results within date range. TSH No results within date range. Lab Value Units Date High Low HCGQT No results within date range. UHCG No results within date range. HCG, BODY* No results within date range. Lab Value Units Date High Low ABORHD O POSI* no uni* 09/15/2019 ABSCREEN NEG no uni* 09/15/2019 No results found for: HBA1C Most recent labs Most recent imaging Most recent EKG Most recent Echo Most recent stress test Assessment/Plan MIXED HYPERLIPIDEMIA Assessment: stable on rx Essential hypertension Assessment: controlled on rx 09/18/19 1046 BP: 154/88 Tobacco use disorder Assessment: current smoker ESOPHAGEAL REFLUX Assessment: controlled on rx Prostate cancer Assessment: h/o, radiation no surgery, PSA levels under surv eillance DDD (degenerative disc disease), lumbar Assessment: stable on rx METS: Climb a flight of stairs or walk up a hill (5.50 METs) Patient denies any chest pain or undue shortness of breath w ith the above physical activity. ASA Class: 3 ANESTHESIA FINDINGS: Intubation History: No history of difficult intubation Significant Anesthesia Considerations: None Airway Exam: General: Normal appearance Mallampati Score is CLASS III ULBT: Class II - Lower incisors can bite the upper lip below the rehana line Neck: Normal appearance and function, Distance from hyoid to mentum during neck extension is at least 3 finger breaths Mouth: Normal tongue size Dentition: Upper denture and Lower denture Airway History: No abnormal airway history STOP BANG Score: Criteria: Hypertension Age over 50 (79 year old) Male gender Score = 3 PLAN This patient is optimally prepared for surgery. TE sent to Dr. Mena regarding AC instructions. Spoke to Dr. Mena on the phone. Ok to remain and Pletal and ASA for surgery. Pt notified by telephone 09/18/2019. CONSULTS: Patient does not require consults for optimization at this t clive. The Following Tests/Procedures Have Been Initiated: Labs not indicated per PACC protocol, EKG not indicated per PACC protocol Planned Anesthetic: Per anesthesia choice Instructions Given to Patient: Instructions located in the after visit summary. Patient given verbal and written preop instructions and voic es comprehension and compliance. SIGNATURE: Mary Jane Gee APRN.CNP PATIENT NAME: Tye Coats shivani DATE: September 18, 2019 TIME: 11:14 AM PAGER/CONTACT #: obsolete on 2019-09 OBSOLETE Procedure (VASMATTEOD) Normal 09-16-2019 [facility] TYE VAZQUEZ ([id number]) 1940 [facility] Date Time Provider Department ([id number]) 09/16/19 ARON MENA During your visit today, we recorded the following informati on about you: Allergies As of Date: 09/16/2019 (No Known Allergies) Date Reviewed: 09/15/2019 Reviewed by: Tammie LantiguaRn) EMILIANO Caruso - Fully Assessed Reason for Visit: Schedule Surgery [1330] Primary Visit Diagnosis:PAD (peripheral artery disease) ([facility] ) [I73.9] Order(s):SURGICAL REQUEST - ELECTIVE [[id number]] Order #: [id number]: 1 Prescriptions as of 09/16/2019 Sig: LISINOPRIL 20 MG TABLET Take 1 tablet by mouth every * LISINOPRIL 20 MG-HYDROCHLOROT* Take 1 tablet by mouth every * AMLODIPINE 10 MG TABLET Take 1 tablet by mouth once d* METOPROLOL TARTRATE 50 MG TAB* Take 1 tablet by mouth twice * CLOPIDOGREL 75 MG TABLET Take 1 tablet by mouth once d* CILOSTAZOL 50 MG TABLET Take 1 tablet by mouth twice * OMEPRAZOLE 20 MG CAPSULE,ROCK* Take 1 capsule by mouth once * ATORVASTATIN 10 MG TABLET Take 1 tablet by mouth once d* CYCLOBENZAPRINE 10 MG TABLET Take 1 tablet by mouth at bed* GABAPENTIN 300 MG CAPSULE 1 capsule in the morning. Co* MELOXICAM 15 MG TABLET Take 1 tablet by mouth once d* TRIAMCINOLONE ACETONIDE 0.5 %* Apply 1 application to affect * Problem List As Of Date 09/16/2019 Noted Resolved Dermatophytosis of foot [B35.3] 11/27/2005 06/14/2017 ESOPHAGEAL REFLUX [K21.9] 08/29/2006 HYPERTENSION NOS [I10] 09/02/2006 03/29/2014 More... MIXED HYPERLIPIDEMIA [E78.2] 09/02/2006 More... Ganglion of tendon sheath [M67.40] 03/19/2007 11/07/2016 Unspecified disorder of prostate [N42.9] 06/21/2007 09/06/20 14 Inguinal hernia without mention of obstruction *10/11/2008 0 11/07/2016 Umbilical hernia without mention of obstruction*10/11/2008 0 11/07/2016 Rotator cuff (capsule) sprain [S43.429A] 09/20/2009 11/07/19 17 Malignant neoplasm of prostate (HCC) [C61] 02/07/20102016 More... Benign neoplasm of rectum and anal canal [D12.8*05/15/2010 More... Tobacco use disorder [F17.200] 05/23/2010 More... Frequency of urination [R35.0] 10/02/2010 11/07/2016 Prostate cancer [C61] Diarrhea [R19.7] 12/05/2010 09/06/2014 Inguinal neuralgia [M79.2] 03/12/2013 11/07/2016 Rotator cuff impingement syndrome of right shou*04/10/2015 Medicare annual wellness visit, subsequent [Z00*04/10/2015 0 06/20/2018 Right-sided low back pain with right-sided scia*10/03/2015 0 05/15/2016 Essential hypertension [I10] 10/16/2015 DDD (degenerative disc disease), lumbar [M51.36]11/07/2016 Clostridium difficile colitis [A04.72] 05/14/2017 06/20/2018 Inguinal hernia [K40.90] 01/20/2018 06/20/2018 More... Traumatic complete tear of left rotator cuff [S*11/03/2018 More... Atherosclerosis of [place] artery of left lower *07/22/2019 Encounter Status:Closed by ARON MENA MD on 09/17/19 hosp on 2019-09-16 HOSP Patient:Tye Vazquez [address] [place] [address] ) Height:5' 7(1.702 m) Weight:162 lb (73.483 kg) Outpatient Medications as of 09/21/19: aspirin, enteric coated (ASPIRIN, ENTERIC COATED) 81 mg EC t ablet lisinopril (ZESTRIL, PRINIVIL) 20 mg tablet lisinopril-hydrochlorothiazide (PRINZIDE,ZESTORETIC) 20-12.5 mg per tablet amLODIPine (NORVASC) 10 mg tablet metoprolol tartrate, short acting, (LOPRESSOR) 50 mg tablet clopidogrel (PLAVIX) 75 mg tablet cilostazol (PLETAL) 50 mg tablet omeprazole (PRILOSEC) 20 mg capsule atorvastatin (LIPITOR) 10 mg tablet cyclobenzaprine (FLEXERIL) 10 mg tablet gabapentin (NEURONTIN) 300 mg capsule meloxicam (MOBIC) 15 mg tablet triamcinolone acetonide (KENALOG) 0.5 % cream Admission/Clinic Administered Medications as of 09/21/19: lidocaine 10 mg/mL (1 %) 1-2 mg injection (XYLOCAINE) ceFAZolin iv piggyback 2 g in D5W (iso-osmotic) 100 mL (ANCE F) lactated ringers infusion Problem List: Esophageal reflux [K21.9] Mixed hyperlipidemia [E78.2] Benign neoplasm of rectum and anal canal [D12.8, D12.9] Tobacco use disorder [F17.200] Prostate cancer (HCC) [C61] Rotator cuff impingement syndrome of right shoulder [M75.41] Essential hypertension [I10] DDD (degenerative disc disease), lumbar [M51.36] Traumatic complete tear of left rotator cuff [S46.012A] Atherosclerosis of [place] artery of left lower extremity wit h intermittent claudication (HCC) [I70.212] PAD (peripheral artery disease) ([facility]) [I73.9] Allergies: No Known Allergies Date Verified:09/21/19 Lab Values Lab Value Units Date High Low POTA* 3.6 mmol/L 09/21/2019 5.1 3.7 CECY* 40.0 % 09/21/2019 51.0 39.0 Progress Notes (PRE ANES MICHAEL): Mary Jane Gee APRN.CNP 09/18/2019 1:01 PM Signed Pt seen today for PAC and sc heduled Saturday for endarterectomy with Dr. Mena for PAD. He is currently on Pletal, ASA and Plavix and too k all medications today. Would you like him to hold any of these or continue perioperatively? Progress Notes ([facility]): Merlene Evans RN 09/09/2019 11:13 AM Signed Patient phones requesting refills as follows: *pt out of town and left meds at home, only needs pills for 1 week Pending Prescriptions Disp Refills LISINOPRIL 20 MG TABLET 7 tablet 0 Sig: Take 1 tablet by mouth every evening. SAY: No LISINOPRIL 20 MG-HYDROCHLOROTHIAZIDE 12.5 MG TABLET 7 tablet 0 Sig: Take 1 tablet by mouth every morning. SAY: No AMLODIPINE 10 MG TABLET 7 tablet 0 Sig: Take 1 tablet by mouth once daily. SAY: No METOPROLOL TARTRATE 50 MG TABLET 14 tablet 0 Sig: Take 1 tablet by mouth twice daily. SAY: No CLOPIDOGREL 75 MG TABLET 7 tablet 0 Sig: Take 1 tablet by mouth once daily. SAY: No CILOSTAZOL 50 MG TABLET 14 tablet 0 Sig: Take 1 tablet by mouth twice daily. SAY: No OMEPRAZOLE 20 MG CAPSULE,DELAYED RELEASE 7 capsule 0 Sig: Take 1 capsule by mouth once daily. SAY: No ATORVASTATIN 10 MG TABLET 7 tablet 0 Sig: Take 1 tablet by mouth once daily. SAY: No Verified pharmacy Last office visit 08-17-19 Please review and advise. Merlene Bolaños MD 09/09/2019 12:03 PM Signed Refills sent. Priya Olivier Cma 09/09/2019 12:12 PM Signed The following approved medic ation requests have been transmitted electronically. Signed Prescriptions Disp Refills lisinopril (ZESTRIL, PRINIVIL) 20 mg tablet 7 tablet 0 Sig: Take 1 tablet by mouth every evening. SAY: No Authorizing Provider: TALON BOLAÑOS lisinopril-hydrochlorothiazide (PRINZIDE,ZESTORETIC) 2 0-12.5 mg per tablet 7 tablet 0 Sig: Take 1 tablet by mouth every morning. SAY: No Authorizing Provider: TALON BOLAÑOS amLODIPine (NORVASC) 10 mg tablet 7 tablet 0 Sig: Take 1 tablet by mouth once daily. SAY: No Authorizing Provider: TALON BOLAÑOS metoprolol tartrate, short acting, (LOPRESSOR) 50 mg tablet 14 tablet 0 Sig: Take 1 tablet by mouth twice daily. SAY: No Authorizing Provider: TALON BOLAÑOS clopidogrel (PLAVIX) 75 mg tablet 7 tablet 0 Sig: Take 1 tablet by mouth once daily. SAY: No Authorizing Provider: TALON BOLAÑOS cilostazol (PLETAL) 50 mg tablet 14 tablet 0 Sig: Take 1 tablet by mouth twice daily. SAY: No Authorizing Provider: TALON BOLAÑOS omeprazole (PRILOSEC) 20 mg capsule 7 capsule 0 Sig: Take 1 capsule by mouth once daily. SAY: No Authorizing Provider: TALON BOLAÑOS atorvastatin (LIPITOR) 10 mg tablet 7 tablet 0 Sig: Take 1 tablet by mouth once daily. SAY: No Authorizing Provider: TALON BOLAÑOS Cma type and screen on 2019-09-15 ABO/RH(D) O POSITIVE Normal 09-15-2019 [facility] ([id number]) Comment: Performed By: #### TSCR #### [facility] [id number] [phone] pt ed on 2019-09-15 PT ED HNO ID: [id number] Normal 09-15-2019 [facility] Author: Tammie LantiguaRnDaniel Caruso RN ([id number]) Service: Nursing Author Type: Registered Nurse Type: Patient Education Filed: 09/15/2019 6:53 PM Note Text: POST OP LEARNING RESPONSE INSTRUCTION PROVIDED TO: Patient and Family member METHOD OF INSTRUCTION: Individual instruction Written instruction - handouts Verbal instruction PATIENT / FAMILY RESPONSE: Verbalizes understanding of: POST -OPERATIVE INSTRUCTIONS-Correct actions to take to reduce postoperative complications FOLLOW-UP PLAN: Recommend - Recommend continued instruction and follow up as directed SUPPLEMENTAL MATERIAL: None REFERRAL (RECOMMENDATION): None Electronically Signed By: Tammie Caruso RN In Department: [facility] LOOPER OPERATOR PT ED HNO ID: [id number] Normal 09-15-2019 [facility] Author: Courtney Paez RN ([id number]) Service: ? Author Type: Registered Nurse Type: Patient Education Filed: 09/15/2019 12:00 PM Note Text: PROCEDURE/SURGERY: left LE angiogram with intervention READINESS TO LEARN COGNITIVE ABILITY: Alert and oriented MOTIVATION TO LEARN: Eager FAMILY SUPPORT: High - Very involved in pt care PATIENT LEARNS BEST BY: Verbal Instruction FACTORS AFFECTING LEARNING: None PHYSICAL LIMITATIONS AFFECTING LEARNING: None Electronically Signed By: Courtney Paez RN In Department: [facility] LOOPER OPERATOR protime on PT Coag (PPP) [Time] 10.7 9.7-13.0 sec Normal 9 [facility] ([id number]) Comment: Performed By: #### PT, BMP, CBC #### [facility] [address] [facility] [phone] PT Coag (PPP) [Time] 1.0 0.9-1.3 s Normal 9 [facility] ([id number]) Comment: Result Comment: Vitamin K An tagonist (VKA) Therapeutic Range: INR 2 to 3 (Target INR of 2.5) Note: For patients treated w ith VKA drugs, such as warfarin, the [employer] 2012 Guideline recommends a therapeutic INR range of 2 to 3 (target INR of 2.5). This recommendation includes high-risk patients with antiphospholipid syndrome with previous arterial or venous thromboembolism, current-generation mechanical or bioprosthetic aortic heart valve replacement. Note: Patients with aluminum siding mechanic al aortic valve replacement and additional risk factors for thromboembolic events (atrial fibrillation, previous thromboembolism, LV dysfunction, hypercoagulable conditions) or an older generation mecha nical AVR (i.e., ball in-Cage) or any mechanical MVR should have a INR therapeutic range of 2.5 to 3.5 (target INR of 3). Manisha GH, et al. Chest 2012 , 141:7S-47S Ignacio RA, et al. [facility] 20 17, 70: [phone] Performed By: #### PT, BMP, CBC #### [facility] [address] [facility] [phone] operative no on 201 06-25-03 OPERATIVE NO HNO ID: [id number] Normal 09-15-20 [facility] Author: Aron Mena ([id number]) Service: Vascular Surgery Author Type: Physician Type: Operative Report Filed: 09/17/2019 2:35 PM Note Text: [facility] - Operative Report TYE VAZQUEZ : 1940 AGE: 79. SEX: M PATIENT TYPE: A HOSP [facility]: [facility] LOCATION: [facility] ATTENDING PHYSICIAN: ARON MENA CSN NUMBER: [id number] DATE OF SURGERY/PROCEDURE: 09/15/2019 INCISION/PROCEDURE START TIME: 1:44 PM INCISION CLOSE/PROCEDURE END TIME: 2:32 PM PREOPERATIVE DIAGNOSIS: Peripheral arterial disease, left cordero llux numbness suggestive of rest pain. POSTOPERATIVE DIAGNOSIS: Peripheral arterial disease, left h allux numbness suggestive of rest pain. SURGEON: Aron Mena M.D. CLOTH WEAVER: No Additional Staff SURGERY/PROCEDURE: Aortoiliac angiography, left lower extrem ity angiography. ANESTHESIA: Conscious sedation. ESTIMATED BLOOD LOSS: 0 cc. SPECIMENS: None. COMPLICATIONS: None. IMPLANTS: None. FINDINGS: Widely patent aortoiliac system, calcified left co mmon femoral artery with mild stenosis at its distal aspect. There was a high-grade stenosis at the origin of the profunda femoris and a moderat e grade stenosis at the proximal superficial femoral artery. Beyond this, the superficial femoral artery was patent. The popliteal artery is occluded in the above knee segment for approximately 5 cm distance wi th reconstitution in the okowm-tef-dphx segment. This appears c hronic given extensive collaterals within this location. Distal to this, there was a single-vessel runoff to the foot via the peroneal artery, wh ich in turn fills into the dorsalis pedis artery. DESCRIPTION OF PROCEDURE: The patient was brought into the c ath lab and placed supine on the table. The patient's bilateral groins w ere prepped and draped in standard sterile fashion. A time-out was joyce d, confirming the patient's identity and type of procedure. Loc al anesthetic was infiltrated overlying the right common femora l artery and under direct ultrasound guidance, access was established. St iff- angled Glidewire was then advanced, and micropuncture sheath and di lator were placed. The stiff-angled Glidewire was then advanced into th e aorta via standard Seldinger technique. A 5-Syriac sheath was placed, followed by advancement of the Omni Flush catheter. Aortoiliac angiogram was then performed with the above-noted findings. The aortic bifurcat ion was then crossed. The standard angled Glidewire was then advanced int o the superficial femoral artery and an angled Glidecath was then advanced in the proximal superficial femoral artery and the left lower e xtremity angiography was then performed with the above-noted findings . Additional angiograms were performed of the left common femoral artery, superficial femoral artery, and profunda femoris under magnification. Gi nohemi the distribution of disease, it was deemed he would be best suit ed for open femoral endarterectomy with patch angioplasty with possibili ty of hvydl-uz-jqdiz knee popliteal bypass. The decision was made to proceed with case completion and additional angiogram was performed from the right common femoral artery sheath, which demonstrated appro priate access. 5 Mynx device was used to close the arteriotomy. Hemostasis was present. Patient was brought to recovery area in stable cond ition with stable vascular exam with a palpable right dorsalis pedis an d Doppler signal in the left DP. Aron Mena M.D. HILARIO:[id number] /[id number] nursing prog on 201 06-25-03 NURSING PROG HNO ID: [id number] Normal 09-15-20 19 [facility] ([id number]) Author: Courtney (Rn) EMILIANO Paez Service: ? Author Type: Registered Nurse Type: Nursing Progress Note Filed: 09/15/2019 11:59 AM Note Text: @ 1120 Pt received to ASCU, ambulatory AND steady. Pt alert AND oriented - pleasasnt AND cooperative with care. @ 1155 Ready for OR - daughter @ bedside. history physical on 2019-09-15 HISTORY HNO ID: [id number] Normal 09-15-2019 [place] PHYSICAL Author: [facility] Service: Vascular Surgery ([id number]) Author Type: Physician Type: HANDP Filed: 09/15/2019 12:58 PM Note Text: HISTORY AND PHYSICAL EXAMINATION SERVICE DATE: 09/15/2019 SERVICE TIME: 1258 PRIMARY CARE PHYSICIAN: Talon Bolaños MD Subjective CHIEF COMPLAINT: PAD HPI: Tye Vazquez was referred for consultation by ?Dr. rAia santillan. ?Opinions and recommendations in this consultation will be t ransmitted back to the referring physician by Epic notes or via mail. ? ?is a 79 year old male PMH DDD?who is seen today for left lower extremity angiography, possible intervention. Complains of continued numbness in the left halux. No wounds . 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 ? He underwent CTA which suggests a proximal left SFA stenosis with subsequent occlusion of the popliteal artery. No wounds on feet or toes. ? In May 2018 underwent spine surgery which resolved many o f his lower extremity complaints. Subsequently had a fall and has result ed in shoulder injury as well as new onset of left leg pain. ? Prior SAMANTHA 09/2018 1 bilaterally. Smoking down to few cig/day, had smoked 15 pack years. PAST MEDICAL HISTORY Diagnosis Date - Benign neoplasm of colon - Benign neoplasm of rectum and anal canal - Clostridium difficile colitis 05/14/2017 - DDD (degenerative disc disease), lumbar 11/07/2016 - Diarrhea - Esophageal reflux 08/29/2006 - Essential hypertension, benign - Inguinal hernia without mention of obstruction or gangrene , unilateral or unspecified, (not specified as recurrent) 10/11/2008 - Mixed hyperlipidemia 09/02/2006 - Nonspecific (abnormal) findings on radiological and other examination of abdominal area, including retroperitoneum - PAD (peripheral artery disease) (HCC) - Prostate cancer (HCC) - 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. - Umbilical hernia without mention of obstruction or gangren e 10/11/2008 PAST SURGICAL HISTORY Procedure Laterality Date - COLONOSCOP W/ OR W/O [facility] SPEC 04/26/2014 Colonoscopy - COLONOSCOP W/ OR W/O [facility] SPEC 05/07/16 Colonoscopy - COLONOSCOPY AND POLYPECTOMY 05/15/10 tubular adenomas removed- [place] - LAMINECTOMY,>2 SGMT,LUMBAR 06/11/2018 [facility] - PAST SURGICAL HISTORY OF 2001 bilat cataracts, retina - RECONSTRUCT PROX HUMERAL IMPLANT Right 1993 Arthroplasty, shoulder right x 2. 1991, 1993. - REPAIR ING HERNIA,5+Y/O,REDUCIBL 11/26/2008 left - REPAIR ING HERNIA,5+Y/O,REDUCIBL 01/20/2018 Hernia repair, inguinal right, indirect w/medium mesh plug W [facility] - REPAIR UMBILICAL ALBERT,5+Y/O,REDUC 11/26/2008 - SEED IMPLANT 05/2010 for prostate cancer - SIGMOIDOSCOPY FLEX DIAG 12/05/10 FAMILY HISTORY Problem Relation Age of Onset - Diabetes Brother skin cancer - Prostate Cancer Brother - Stroke Mother - Blood Disease Father - Coronary Artery Disease Brother - other (Other) Brother paraplegia Social History Tobacco Use - Smoking status: Current Every Day Smoker Packs/day: 0.50 Years: 30.00 Pack years: 15.00 Types: Cigarettes - Smokeless tobacco: Never Used Substance Use Topics - Alcohol use: Yes Alcohol/week: 7.5 standard drinks Types: 3 Glasses of Wine (5oz) per week Comment: 1/2 oz at night - Drug use: No lisinopril (ZESTRIL, PRINIVIL) 20 mg tablet, Take 1 tablet b y mouth every evening., Disp: 7 tablet, Rfl: 0, 09/14/2019 at 2200 lisinopril-hydrochlorothiazide (PRINZIDE,ZESTORETIC) 20-12.5 mg per tablet, Take 1 tablet by mouth every morning., Disp: 7 table t, Rfl: 0, 09/15/2019 at 0630 amLODIPine (NORVASC) 10 mg tablet, Take 1 tablet by mouth on ce daily., Disp: 7 tablet, Rfl: 0, 09/15/2019 at 0630 metoprolol tartrate, short acting, (LOPRESSOR) 50 mg tablet, Take 1 tablet by mouth twice daily., Disp: 14 tablet, Rfl: 0, 09/14/2019 at 2200 clopidogrel (PLAVIX) 75 mg tablet, Take 1 tablet by mouth on ce daily., Disp: 7 tablet, Rfl: 0, 09/14/2019 at 2200 cilostazol (PLETAL) 50 mg tablet, Take 1 tablet by mouth twi ce daily., Disp: 14 tablet, Rfl: 0, 09/14/2019 at 2200 omeprazole (PRILOSEC) 20 mg capsule, Take 1 capsule by mouth once daily., Disp: 7 capsule, Rfl: 0, 09/15/2019 at 1000 atorvastatin (LIPITOR) 10 mg tablet, Take 1 tablet by mouth once daily., Disp: 7 tablet, Rfl: 0, 09/14/2019 at 2200 cyclobenzaprine (FLEXERIL) 10 mg tablet, Take 1 tablet by mo uth at bedtime as needed for Muscle Spasm., Disp: 30 tablet, Rfl: 0, Past W wiyot at Unknown time gabapentin (NEURONTIN) 300 mg capsule, 1 capsule in the morn ing. Continue 2 capsules at bedtime., Disp: 270 capsule, Rfl: 3, 09/14/2019 at 2200 meloxicam (MOBIC) 15 mg tablet, Take 1 tablet by mouth once daily as needed (joint pains.). Take with food., Disp: 30 tablet, Rfl : 1, 09/14/2019 at 2200 triamcinolone acetonide (KENALOG) 0.5 % cream, Apply 1 appli cation to affected area twice daily. For rash/itching. Apply sparingly . Avoid face/skin fold., Disp: 30 g, Rfl: 0, Unknown at Unknown time ALLERGIES No Known Allergies COMPLETE REVIEW OF SYSTEMS: GENERAL: No weight loss, malaise or fevers Remainder ROS noncontributory Objective PHYSICAL EXAM: Physical Exam Performed: GENERAL: Alert, no distress, cooperative LUNGS: CTA CARDIAC: RRR EXTREMITIES: no ulcers on toes BP 159/77 Pulse 63 Temp 97.7 Resp 16 Ht 5' 7 (1.70m ) Wt 158 lb (71.7kg) SpO2 93% BMI 24.74 kg/(m2). O2 Therapy: Room Air DATA: Diagnostic tests reviewed for today's visit: Most recent labs Assessment/Plan 79 y/o male with PMH DDD, PAD, presents for left lower extre mity angiography, possible intervention. Risks and benefits of left lower extremity angiography and i ntervention were discussed, with risks including but not limited to blee ding at either the access or intervention site, contrast induced kidney inj ury and worsening limb ischemia. Understanding this Mr. Vazquez wishe d to proceed to help alleviate his symptoms. SIGNATURE: Aron Mena MD PATIENT NAME: Tye Vazquez DATE: September 15, 2019 TIME: 12:54 PM PAGER/CONTACT #: confirm blood type on 2019-09-15 ABO/RH(D) O POSITIVE Normal 09-15-2019 [facility] ([id number]) Comment: Performed By: #### CONABO ## ##[facility] [address] [place] [phone] cbc on 2019-09-15 Erythrocyte distribution 12.6 11.5-15.0 % Normal 09-15 [facility] ([id number]) width (RBC) [Ratio] Comment: Performed By: #### PT, BMP, CBC ####[facility] [address] [place] [phone] Hematocrit (Bld) [Volume 41.7 39.0-51.0 % Normal 09-15 [facility] ([id number]) fraction] Comment: Performed By: #### PT, BMP, CBC ####[facility] [address] [place] [phone] Hemoglobin (Bld) 14.5 13.0-17.0 g/dL Normal 09-15-2019 [facility] [Mass/Vol] ([id number]) Comment: Performed By: #### PT, BMP, CBC ####[facility] [address] [place] [phone] MCH (RBC) [Entitic mass] 32.2 26.0-34.0 pG Normal 09-15 [facility] ([id number]) Comment: Performed By: #### PT, BMP, CBC ####[facility] [address] [place] [address] 0 MCHC (RBC) [Mass/Vol] 34.8 30.5-36.0 g/dL Normal 09-15-20 [facility] ([id number]) Comment: Performed By: #### PT, BMP, CBC ####[place] [address] 0 MCV (RBC) [Entitic vol] 92.7 80.0-100.0 fL Normal 09-15 [facility] ([id number]) Comment: Performed By: #### PT, BMP, CBC ####[place] [address] 0 Platelet mean volume (Bld) 10.7 9.0-12.7 fL Normal [facility] ([id number]) [Entitic vol] Comment: Performed By: #### PT, BMP, CBC ####[place] [address] 0 Platelets (Bld) [#/Vol] 244 150-400 k/uL Normal 2018 [facility] ([id number]) Comment: Performed By: #### PT, BMP, CBC ####[place] [address] 0 RBC (Bld) [#/Vol] 4.50 4.20-6.00 m/uL Normal 09-15-2019 [facility] ([id number]) Comment: Performed By: #### PT, BMP, CBC ####[place] [address] 0 WBC (Bld) [#/Vol] 6.44 3.70-11.00 k/uL Normal 09-15-2019 [facility] ([id number]) Comment: Performed By: #### PT, BMP, CBC ####[place] [address] 0 basic metabolic panl on 2019-09-15 Anion gap [Moles/Vol] 14 9-18 mmol/L Normal 09-15-20 [facility] ([id number]) Comment: Performed By: #### PT, BMP, CBC ####[facility] [address] [place] [address] 0 Calcium [Mass/Vol] 9.4 8.5-10.2 mg/dL Normal 09-15-2019 [facility] ([id number]) Comment: Performed By: #### PT, BMP, CBC ####[facility] [address] [place] [address] 0 Chloride [Moles/Vol] 99 97-105 mmol/L Normal 9 [facility] ([id number]) Comment: Performed By: #### PT, BMP, CBC ####[facility] [address] [place] [address] 0 CO2 [Moles/Vol] 27 22-30 mmol/L Normal 09-15-2019 [facility] ([id number]) Comment: Performed By: #### PT, BMP, CBC ####[facility] [address] [place] [address] 0 Creatinine [Mass/Vol] 1.22 0.73-1.22 mg/dL Normal 09-15-20 19 [facility] ([id number]) Comment: Performed By: #### PT, BMP, CBC ####[facility] [address] [place] [address] 0 eGFR- Amer. >60 Normal 09-15-2019 [facility] ([id number]) Comment: Performed By: #### PT, BMP, CBC ####[facility] [address] [place] [address] 0 GFR/1.73 sq M predicted among 57 . Normal 09-15-2019 [facility] ([id number]) non-blacks MDRD (S/P/Bld) [Vol rate/Area] Comment: Result Comment: eGFR (Estima carlita GFR) Units of measure: mL/min/1.73 meters squared eGFR is derived from the ree xpressed MDRD Study equation using the following parameters: serum creatinine, age, gender and race. The creatinine assay has been calibrated to be traceable to IDMS. An eGFR <60 mL/min/1.73m2 fo r >3 months is consistent with chronic kidney disease. Refer to KDOQI guidelines for clinical interpretation. In patients with unstable re nal function, e.g. those with acute kidney injury, the eGFR may not accurately reflect actual GFR. Performed By: #### PT, BMP, CBC ####[facility] [address] [place] [address] 0 Glucose [Mass/Vol] 86 74-99 mg/dL Normal 09-15-2019 [facility] ([id number]) Comment: Result Comment: The [place] [employer] (ADA) provides guidance for cutoff values for fasting glucose and random glucose. The ADA defines fasting as no caloric intake for at least 8 hours. Fas ting plasma glucose results between 100 to 125 mg/dL indicate increased risk for diabetes (prediabetes). Fasting plasma glucose resul ts greater than or equal to 126 mg/dL meet the criteria for diagnosis of diabetes. In the absence of unequivocal hyperglycemia, results should be confirmed by repeat testing. In a patient with classic s ymptoms of hyperglycemia or hyperglycemic crisis, random plasma glucose results greater than or equal to 200 mg/dL meet the criteria for diagnosis of diabetes. Reference: Standards of [facility] in Diabetes 2016, [place] [employer]. Diabetes Care. 2016.39(Suppl 1). Performed By: #### PT, BMP, CBC ####[facility] [address] [place] [address] 0 Potassium [Moles/Vol] 3.3 3.7-5.1 mmol/L Low 09-15-20 [facility] ([id number]) Comment: Performed By: #### PT, BMP, CBC ####[facility] [address] [place] [address] 0 Sodium [Moles/Vol] 140 136-144 mmol/L Normal 09-15-2019 [facility] ([id number]) Comment: Performed By: #### PT, BMP, CBC ####[facility] [address] [place] [phone] Urea nitrogen [Mass/Vol] 23 9-24 mg/dL Normal 09-15 [facility] ([id number]) Comment: Performed By: #### PT, BMP, CBC ####[facility] [address] [place] [phone] obsolete on 2019-08 OBSOLETE Refill (INTMWS) Normal 09-09-2019 [facility] TYE VAZQUEZ ([id number]) 1940 [address] Date Time Provider Department ([id number]) 09/09/19 TALON BOLAÑOS INTMWS During your visit today, we recorded the following informati on about you: Merlene Evans RN 09/09/2019 11:13 AM Signed Patient phones requesting refills as follows: *pt out of town and left meds at home, only needs pills for 1 week Pending Prescriptions Disp Refills LISINOPRIL 20 MG TABLET 7 tablet 0 Sig: Take 1 tablet by mouth every evening. SAY: No LISINOPRIL 20 MG-HYDROCHLOROTHIAZIDE 12.5 MG TABLET 7 tablet 0 Sig: Take 1 tablet by mouth every morning. SAY: No AMLODIPINE 10 MG TABLET 7 tablet 0 Sig: Take 1 tablet by mouth once daily. SAY: No METOPROLOL TARTRATE 50 MG TABLET 14 tablet 0 Sig: Take 1 tablet by mouth twice daily. SAY: No CLOPIDOGREL 75 MG TABLET 7 tablet 0 Sig: Take 1 tablet by mouth once daily. SAY: No CILOSTAZOL 50 MG TABLET 14 tablet 0 Sig: Take 1 tablet by mouth twice daily. SAY: No OMEPRAZOLE 20 MG CAPSULE,DELAYED RELEASE 7 capsule 0 Sig: Take 1 capsule by mouth once daily. SAY: No ATORVASTATIN 10 MG TABLET 7 tablet 0 Sig: Take 1 tablet by mouth once daily. SAY: No Verified pharmacy Last office visit 08-17-19 Please review and advise. Merlene Bolaños MD 09/09/2019 12:03 PM Signed Refills sent. Priya Olivier Cma 09/09/2019 12:12 PM Signed The following approved medic ation requests have been transmitted electronically. Signed Prescriptions Disp Refills lisinopril (ZESTRIL, PRINIVIL) 20 mg tablet 7 tablet 0 Sig: Take 1 tablet by mouth every evening. SAY: No Authorizing Provider: TALON BOLAÑOS lisinopril-hydrochlorothiazide (PRINZIDE,ZESTORETIC) 2 0-12.5 mg per tablet 7 tablet 0 Sig: Take 1 tablet by mouth every morning. SAY: No Authorizing Provider: TALON BOLAÑOS amLODIPine (NORVASC) 10 mg tablet 7 tablet 0 Sig: Take 1 tablet by mouth once daily. SAY: No Authorizing Provider: TALON BOLAÑOS metoprolol tartrate, short acting, (LOPRESSOR) 50 mg tablet 14 tablet 0 Sig: Take 1 tablet by mouth twice daily. SAY: No Authorizing Provider: TALON BOLAÑOS clopidogrel (PLAVIX) 75 mg tablet 7 tablet 0 Sig: Take 1 tablet by mouth once daily. SAY: No Authorizing Provider: TALON BOLAÑOS cilostazol (PLETAL) 50 mg tablet 14 tablet 0 Sig: Take 1 tablet by mouth twice daily. SAY: No Authorizing Provider: TALON BOLAÑOS omeprazole (PRILOSEC) 20 mg capsule 7 capsule 0 Sig: Take 1 capsule by mouth once daily. SAY: No Authorizing Provider: TALON BOLAÑOS atorvastatin (LIPITOR) 10 mg tablet 7 tablet 0 Sig: Take 1 tablet by mouth once daily. SAY: No Authorizing Provider: TALON BOLAÑOS Hotel Service Supervisor Allergies As of Date: 09/09/2019 (No Known Allergies) Date Reviewed: 08/28/2019 Reviewed by: Lynnette Beebe - Fully Assessed Reason for Visit: Refill Request [94] Visit Diagnoses:Essential hypertension [I10] PAD (peripheral artery disease) ([facility]) [I73.9] Gastroesophageal reflux disease, esophagitis presence not specified [K21.9] Mixed hyperlipidemia [E78.2] Order(s):lisinopril (ZESTRIL, PRINIVIL) 20 mg tabletTake 1 t ablet by mouth every evening.Disp: 7 tabletRfl: 0 lisinopril-hydrochlorothiazide (PRINZIDE,ZESTORETIC) 20-12.5 mg per tabletTake 1 tablet by mouth every morning.Disp: 7 tabletRfl : 0 amLODIPine (NORVASC) 10 mg tabletTake 1 tablet by mouth once daily.Disp: 7 tabletRfl: 0 metoprolol tartrate, short acting, (LOPRESSOR) 50 mg tabletT avi 1 tablet by mouth twice daily.Disp: 14 tabletRfl: 0 clopidogrel (PLAVIX) 75 mg tabletTake 1 tablet by mouth once daily.Disp: 7 tabletRfl: 0 cilostazol (PLETAL) 50 mg tabletTake 1 tablet by mouth twice daily.Disp: 14 tabletRfl: 0 omeprazole (PRILOSEC) 20 mg capsuleTake 1 capsule by mouth o nce daily.Disp: 7 capsuleRfl: 0 atorvastatin (LIPITOR) 10 mg tabletTake 1 tablet by mouth on ce daily.Disp: 7 tabletRfl: 0 Prescriptions as of 09/09/2019 Sig: LISINOPRIL 20 MG TABLET Take 1 tablet by mouth every * LISINOPRIL 20 MG-HYDROCHLOROT* Take 1 tablet by mouth every * AMLODIPINE 10 MG TABLET Take 1 tablet by mouth once d* METOPROLOL TARTRATE 50 MG TAB* Take 1 tablet by mouth twice * CLOPIDOGREL 75 MG TABLET Take 1 tablet by mouth once d* CILOSTAZOL 50 MG TABLET Take 1 tablet by mouth twice * OMEPRAZOLE 20 MG CAPSULE,ROCK* Take 1 capsule by mouth once * ATORVASTATIN 10 MG TABLET Take 1 tablet by mouth once d* CYCLOBENZAPRINE 10 MG TABLET Take 1 tablet by mouth at bed* GABAPENTIN 300 MG CAPSULE 1 capsule in the morning. Co* MELOXICAM 15 MG TABLET Take 1 tablet by mouth once d* TRIAMCINOLONE ACETONIDE 0.5 %* Apply 1 application to affect * Problem List As Of Date 09/09/2019 Noted Resolved Dermatophytosis of foot [B35.3] 11/27/2005 06/14/2017 ESOPHAGEAL REFLUX [K21.9] 08/29/2006 HYPERTENSION NOS [I10] 09/02/2006 03/29/2014 More... MIXED HYPERLIPIDEMIA [E78.2] 09/02/2006 More... Ganglion of tendon sheath [M67.40] 03/19/2007 11/07/2016 Unspecified disorder of prostate [N42.9] 06/21/2007 09/06/20 14 Inguinal hernia without mention of obstruction *10/11/2008 0 11/07/2016 Umbilical hernia without mention of obstruction*10/11/2008 0 11/07/2016 Rotator cuff (capsule) sprain [S43.429A] 09/20/2009 11/07/19 17 Malignant neoplasm of prostate (HCC) [C61] 02/07/20102016 More... Benign neoplasm of rectum and anal canal [D12.8*05/15/2010 More... Tobacco use disorder [F17.200] 05/23/2010 More... Frequency of urination [R35.0] 10/02/2010 11/07/2016 Prostate cancer [C61] Diarrhea [R19.7] 12/05/2010 09/06/2014 Inguinal neuralgia [M79.2] 03/12/2013 11/07/2016 Rotator cuff impingement syndrome of right shou*04/10/2015 Medicare annual wellness visit, subsequent [Z00*04/10/2015 0 06/20/2018 Right-sided low back pain with right-sided scia*10/03/2015 0 05/15/2016 Essential hypertension [I10] 10/16/2015 DDD (degenerative disc disease), lumbar [M51.36]11/07/2016 Clostridium difficile colitis [A04.72] 05/14/2017 06/20/2018 Inguinal hernia [K40.90] 01/20/2018 06/20/2018 More... Traumatic complete tear of left rotator cuff [S*11/03/2018 More... Atherosclerosis of [place] artery of left lower *07/22/2019 Prescriptions ordered this encounter Disp Refills Start End LISINOPRIL 20 MG TABLET 7 ta* 0 09/09/2019 Route: ORAL Sig: Take 1 tablet by mouth every evening. LISINOPRIL 20 MG-HYDROCHLOROTHIAZIDE* 7 ta* 0 09/09/2019 Route: ORAL Sig: Take 1 tablet by mouth every morning. AMLODIPINE 10 MG TABLET 7 ta* 0 09/09/2019 Route: ORAL Sig: Take 1 tablet by mouth once daily. METOPROLOL TARTRATE 50 MG TABLET 14 t* 0 09/09/2019 Route: ORAL Sig: Take 1 tablet by mouth twice daily. CLOPIDOGREL 75 MG TABLET 7 ta* 0 09/09/2019 Route: ORAL Sig: Take 1 tablet by mouth once daily. CILOSTAZOL 50 MG TABLET 14 t* 0 09/09/2019 12/08/2019 Route: ORAL Sig: Take 1 tablet by mouth twice daily. OMEPRAZOLE 20 MG CAPSULE,DELAYED REL* 7 ca* 0 09/09/2019 Route: ORAL Sig: Take 1 capsule by mouth once daily. ATORVASTATIN 10 MG TABLET 7 ta* 0 09/09/2019 Route: ORAL Sig: Take 1 tablet by mouth once daily. Medications Discontinued During This Encounter lisinopril (ZESTRIL, PRINIVIL) 20 mg* 90 t* 1 06/01/201908/15 Route: ORAL Sig: Take 1 tablet by mouth every evening. Disc: Reason for discontinue is not on file. lisinopril-hydrochlorothiazide (PRIN* 90 t* 1 06/01/201908/15 Route: ORAL Sig: Take 1 tablet by mouth every morning. Disc: Reason for discontinue is not on file. amLODIPine (NORVASC) 10 mg tablet 90 t* 1 06/01/2019 09/09/20 Route: ORAL Sig: Take 1 tablet by mouth once daily. Disc: Reason for discontinue is not on file. metoprolol tartrate, short acting, (* 180 * 1 01/17/201909/09 Route: ORAL Sig: Take 1 tablet by mouth twice daily. Disc: Reason for discontinue is not on file. clopidogrel (PLAVIX) 75 mg tablet 90 t* 3 08/19/2019 09/09/20 Route: ORAL Sig: Take 1 tablet by mouth once daily. Disc: Reason for discontinue is not on file. cilostazol (PLETAL) 50 mg tablet 180 * 2 08/25/2019 09/09/20 Route: ORAL Sig: Take 1 tablet by mouth twice daily. Disc: Reason for discontinue is not on file. omeprazole (PRILOSEC) 20 mg capsule 90 c* 1 07/23/201909/09 Route: ORAL Sig: Take 1 capsule by mouth once daily. Disc: Reason for discontinue is not on file. atorvastatin (LIPITOR) 10 mg tablet 90 t* 3 10/10/201809/09 Route: ORAL Sig: Take 1 tablet by mouth once daily. Disc: Reason for discontinue is not on file. Encounter Status:Closed by PRIYA OLIVIER CMA on 09/09/19 progress on 2019-08 PROGRESS HNO ID: [id number] Normal 08-25-2019 Jovan Merritt Author: [facility] Service: ? ([id number]) Author Type: Physician Type: Progress Notes Filed: 08/25/2019 2:43 PM Note Text: Cardiovascular Medicine Out-Patient Note Chief Complaint Patient presents with: Cardiology Follow Up : Referral from Dr. Mena for cardia c clearance History of Present Illness: Tye Vazqeuz is a 79 year old with peripheral arterial dis ease (left more than right; proximal left SFA), nicotine dependence, hy pertension, dyslipidemia, GERD and neuropathy who is here today to [facility] cardiac vascular care. He is scheduled to undergo left angiography/peripheral arter ial intervention and possible open bypass by Dr. Mena. Terms of his cardiac complaints, he is asymptomatic and doin g well. His only limitation to activities as claudication/lower extreme a numbness. He is able to rake leaves and carry out his daily chores withou t any difficulties or developing any symptoms. Unfortunately he continues to smoke cigarettes on a daily ba sis. He had a stressful year where his this past summer. He previously attempted to quit smoking several times. He specifically denies chest pain, dyspnea, dyspnea on exert ion, palpitations, lightheadedness, PND, orthopnea or syncope. PAST MEDICAL HISTORY Diagnosis Date - Benign neoplasm of colon - Benign neoplasm of rectum and anal canal - Clostridium difficile colitis 05/14/2017 - DDD (degenerative disc disease), lumbar 11/07/2016 - Diarrhea - Esophageal reflux 08/29/2006 - Essential hypertension, benign - Inguinal hernia without mention of obstruction or gangrene , unilateral or unspecified, (not specified as recurrent) 10/11/2008 - Mixed hyperlipidemia 09/02/2006 - Nonspecific (abnormal) findings on radiological and other examination of abdominal area, including retroperitoneum - PAD (peripheral artery disease) (HCC) - Prostate cancer (HCC) - Rotator cuff impingement syndrome of right shoulder 015 - Snoring - Traumatic complete tear of left rotator cuff 11/03/2018 [facility] - Umbilical hernia without mention of obstruction or gangren e 10/11/2008 PAST SURGICAL HISTORY Procedure Laterality Date - COLONOSCOP W/ OR W/O [facility] SPEC 04/26/2014 Colonoscopy - COLONOSCOP W/ OR W/O [facility] SPEC 05/07/16 Colonoscopy - COLONOSCOPY AND POLYPECTOMY 05/15/10 tubular adenomas removed- [place] - LAMINECTOMY,>2 SGMT,LUMBAR 06/11/2018 [facility] - PAST SURGICAL HISTORY OF 2001 bilat cataracts, retina - RECONSTRUCT PROX HUMERAL IMPLANT Right 1993 Arthroplasty, shoulder right x 2. 1991, 1993. - REPAIR ING HERNIA,5+Y/O,REDUCIBL 11/26/2008 left - REPAIR ING HERNIA,5+Y/O,REDUCIBL 01/20/2018 Hernia repair, inguinal right, indirect w/medium mesh plug [facility] - REPAIR UMBILICAL ALBERT,5+Y/O,REDUC 11/26/2008 - SEED IMPLANT 05/2010 for prostate cancer - SIGMOIDOSCOPY FLEX DIAG 12/05/10 FAMILY HISTORY Problem Relation Age of Onset - Diabetes Brother skin cancer - Prostate Cancer Brother - Stroke Mother - Blood Disease Father - Coronary Artery Disease Brother - other (Other) Brother paraplegia Social History Tobacco Use - Smoking status: Current Every Day Smoker Packs/day: 0.50 Years: 30.00 Pack years: 15.00 Types: Cigarettes - Smokeless tobacco: Never Used Substance Use Topics - Alcohol use: Yes Alcohol/week: 7.5 standard drinks Types: 3 Glasses of Wine (5oz) per week Comment: 1/2 oz at night - Drug use: No ALLERGIES No Known Allergies Medications: Current Outpatient Medications Medication Sig Dispense Refill - clopidogrel (PLAVIX) 75 mg tablet Take 1 tablet by mouth o nce daily. 90 tablet 3 - omeprazole (PRILOSEC) 20 mg capsule Take 1 capsule by mout h once daily. 90 capsule 1 - cyclobenzaprine (FLEXERIL) 10 mg tablet Take 1 tablet by m outh at bedtime as needed for Muscle Spasm. 30 tablet 5 - cilostazol (PLETAL) 50 mg tablet Take 1 tablet by mouth tw ice daily. 60 tablet 0 - amLODIPine (NORVASC) 10 mg tablet Take 1 tablet by mouth o nce daily. 90 tablet 1 - gabapentin (NEURONTIN) 300 mg capsule 1 capsule in the mor jamarcus. Continue 2 capsules at bedtime. 270 capsule 3 - lisinopril (ZESTRIL, PRINIVIL) 20 mg tablet Take 1 tablet by mouth every evening. 90 tablet 1 - lisinopril-hydrochlorothiazide (PRINZIDE,ZESTORETIC) 20-12 .5 mg per tablet Take 1 tablet by mouth every morning. 90 tablet 1 - meloxicam (MOBIC) 15 mg tablet Take 1 tablet by mouth once daily as needed (joint pains.). Take with food. 30 tablet 1 - metoprolol tartrate, short acting, (LOPRESSOR) 50 mg table t Take 1 tablet by mouth twice daily. 180 tablet 1 - atorvastatin (LIPITOR) 10 mg tablet Take 1 tablet by mouth once daily. 90 tablet 3 - triamcinolone acetonide (KENALOG) 0.5 % cream Apply 1 appl ication to affected area twice daily. For rash/itching. Apply sparingly . Avoid face/skin fold. 30 g 0 - aspirin, enteric coated (ASPIRIN, ENTERIC COATED) 81 mg EC tablet Take 1 tablet by mouth once daily. 0 No current facility-administered medications for this visit. Review of Systems Constitutional: Positive for malaise/fatigue. Negative for c hills, diaphoresis, fever and weight loss. HENT: Negative for congestion, ear pain, hearing loss, noseb gabriele and tinnitus. Eyes: Negative for blurred vision, double vision and photoph obia. Respiratory: Negative for cough, hemoptysis, sputum producti on, shortness of breath and wheezing. Cardiovascular: Positive for claudication. Negative for ches t pain, palpitations, orthopnea, leg swelling and PND. Gastrointestinal: Negative for abdominal pain, blood in stoo l, constipation, diarrhea, heartburn, melena, nausea and vomiti ng. Genitourinary: Negative for dysuria, frequency, hematuria an d urgency. Musculoskeletal: Negative for myalgias. Skin: Negative for itching and rash. Neurological: Positive for sensory change. Negative for dizz iness, focal weakness, seizures and headaches. Endo/Heme/Allergies: Bruises/bleeds easily. Psychiatric/Behavioral: Negative for depression and memory l oss. The patient does not have insomnia. Physical Examination: Vitals:BP 140/82 Pulse 100 Ht 5' 7 (1.70m) Wt 158 lb (71.7kg) SpO2 92% BMI 24.74 kg/(m2). BP w/Orthostatic Vitals Date and Time Orthostatic BP Orthostatic Pulse BP Pulse BP P osition BP Site BP Cuff Size 08/25/19 1312 -- -- 140/82 100 Sitting Right Arm Regular Matt lt Last 2 Encounter Wt Readings: Date: Wt: 08/25/2019 158 lb (71.7 kg) 08/19/2019 160 lb 3.2 oz (72.7 kg) Physical Exam Constitutional: He is oriented to person, place, and time an d well-developed, well-nourished, and in no distress. HENT: Head: Normocephalic. Eyes: Conjunctivae and EOM are normal. Neck: No JVD present. No thyromegaly present. Cardiovascular: Normal rate, regular rhythm, S1 normal, S2 n ormal and normal heart sounds. PMI is not displaced. Exam reveals no g allop and no friction rub. No murmur heard. Pulses: Radial pulses are 1+ on the right side and 1+ on the left si de. Dorsalis pedis pulses are 2+ on the right side and 1+ on the left side. Posterior tibial pulses are 2+ on the right side and 1+ on t he left side. Pulmonary/Chest: Effort normal and breath sounds normal. No respiratory distress. He has no wheezes. He has no rales. He exhibits no tenderness. Abdominal: Soft. Bowel sounds are normal. He exhibits no dis tension. There is no tenderness. There is no rebound and no guarding. Musculoskeletal: Normal range of motion. General: No tenderness, deformity or edema. Neurological: He is alert and oriented to person, place, and time. No cranial nerve deficit. Gait normal. Skin: Skin is warm and dry. No rash noted. No erythema. No p allor. Psychiatric: Mood, memory, affect and judgment normal. Nursing note and vitals reviewed. Pertinent Labs: CBC: Hemoglobin (g/dL) Date Value 08/17/2019 16.1 Hematocrit (%) Date Value 08/17/2019 46.8 WBC (k/uL) Date Value 08/17/2019 6.54 Platelet Count (k/uL) Date Value 08/17/2019 240 BMP: Glucose (mg/dL) Date Value 08/17/2019 75 Potassium (mmol/L) Date Value 08/17/2019 3.8 Sodium (mmol/L) Date Value 08/17/2019 137 Chloride (mmol/L) Date Value 08/17/2019 99 CO2 (mmol/L) Date Value 08/17/2019 26 Creatinine (mg/dL) Date Value 08/17/2019 1.03 BUN (mg/dL) Date Value 08/17/2019 18 Anion Gap (mmol/L) Date Value 08/17/2019 12 Calcium (mg/dL) Date Value 08/17/2019 9.9 INR: Lipid Profile: Cholesterol, Total Date Value Ref Range Status 10/21/2018 112 <200 mg/dL Final Comment: <200 mg/dL, Desirable 200-239 mg/dL, Borderline high >239 mg/dL, High HDL Cholesterol Date Value Ref Range Status 10/21/2018 39 (L) >39 mg/dL Final Comment: 40-59 mg/dL, Acceptable >59 mg/dL, High: Negative risk factor for coronary heart dis ease <40 mg/dL, Low: Positive risk factor for coronary heart dise ase LDL Cholesterol Date Value Ref Range Status 10/21/2018 60 <100 mg/dL Final Comment: <100 mg/dL, Optimal 100-129 mg/dL, Near optimal/above optimal 130-159 mg/dL, Borderline high 160-189 mg/dL, High >189 mg/dL, Very high Secondary prevention optimal LDL Cholesterol levels are lydia mmended to be < 70 mg/dL Triglyceride Date Value Ref Range Status 10/21/2018 67 <150 mg/dL Final Comment: <150 mg/dL, Normal 150-199 mg/dL, Borderline high 200-499 mg/dL, High >499 mg/dL, Very high Hemoglobin A1C: No results found for: HGBA1C TSH: No results found for: TSHREFL Most Recent Cardiac Testing Electrocardiogram 08/25/2019: Normal sinus rhythm (HI interv als 160 ms; QRS 104 ms; QTC is 431 ms). RSR' in V1. Echocardiogram 08/17/2019: - The left ventricle is normal in size. There is mild upper septal left ventricular hypertrophy. Left ventricular systolic function is normal. EF = 58 ? 5% (2D biplane) Grade I left ventricular diastolic dy sfunction. Wall motion abnormalities as stated above. - The right ventricle is?normal in size. Right ventricular s ystolic function is normal. - There are no significant valvular abnormalities. SPECT perfusion 08/19/2019: ?1. SPECT Perfusion Study: Normal. ?2. There is no scintigraphic evidence for inducible ischemi a. ?3. No evidence of scarred myocardium. ?4. Functional capacity N/A (pharmacological). ?5. Left ventricle is normal in size. The left ventricle sys tolic function is normal. ?6. Right ventricle is normal in size. ?7. This is a low risk scan. LVEF % 66 Assessment and Plan: 79 year old with peripheral arterial disease who is schedule d for peripheral artery intervention. Assessment -Patient is asymptomatic from a cardiac perspective. -His LVEF was normal on echocardiogram and pharmacological M PI -His pharmacological MPI did not show any significant areas of myocardial ischemia/infarction. -He does not have any significant valve disease -His blood pressure is somewhat elevated today. He notes marc t his blood pressures usually controlled and he is somewhat anxious this morning. Therapy --The importance of smoking cessation was discussed. He is n ot ready to quit smoking at this time. --Continue low salt/heart healthy diet --Continue atorvastatin (target LDL less than 70-100 mg/dL) --Continue Plavix. He has stopped aspirin on his own accord. I informed him that there is no clear benefit of Plavix in addition to aspirin at this time. Deferred and complaining management to his vascul ar surgeon, Dr. Mena. --Continue Pletal for now. She is unsure if he has benefited from Pletal therapy. He has not had any major side effects thus far. --Supervised exercise as per vascular surgery --Continue amlodipine, lisinopril, hydrochlorothiazide and m etoprolol. Monitor blood pressure and considering adjusting antihyperte nsives. Perioperative risk assessment --His risk for perioperative cardiac events are low (approxi mately at 1%) --No further cardiac testing --Proceed with peripheral arterial intervention/surgery unde rstanding benefits and risks Follow up in 6 months time or with any new symptoms/concerns . Electronically signed by Lynnette Traore MD on August, 1:35 PM cnov on 2019-08-25 CNOV Office Visit (AGCARDPOB) Normal 08-25 Jovan TYE Cabello ([id number]) 1940 M Medical Date Time Provider Department Center 08/25/19 1:20 PM LYNNETTE BEEBE AGCSHARONPOSvitlana ([id number]) During your visit today, we recorded the following informati on about you: Pulse Blood pressure Weight Height 100/minute 140/82 71.7 kg 1.702 m Arlet (Ann-Marie) Pako 08/25/2019 1:23 PM Signed Mr. Vazquze is here as new patient. No cardiac complaints or symptoms. Arlet (Ann-Marie) Pako Traore MD 08/25/2019 2:43 PM Addendum Cardiovascular Medicine Out-Patient Note Chief Complaint Patient presents with: Cardiology Follow Up : Referral from Dr. Mena for cardia c clearance History of Present Illness: Tye Vazquez is a 79 year old with peripheral arterial d isease (left more than right; proximal left SFA), nicotine dependence, hyperte nsion, dyslipidemia, GERD and neuropathy who is here today to [facility] cardiac vascular care. He is scheduled to undergo left angiography/peripheral arterial intervention and possible open bypass by Dr. Mena. Terms of his cardiac complaints, he is asymptomatic an d doing well. His only limitation to activities as claudication/lower e xtreme a numbness. He is able to rake leaves and carry out his daily chores without any di fficulties or developing any symptoms. Unfortunately he continues to smoke cigarettes on a daily ba sis. He had a stressful year where his this past summer. He previously attempted to quit smoking several times. He specifically denies chest pain, dyspn ea, dyspnea on exertion, palpitations, lightheadedness, PND, orthopnea or syncope. PAST MEDICAL HISTORY Diagnosis Date - Benign neoplasm of colon - Benign neoplasm of rectum and anal canal - Clostridium difficile colitis 05/14/2017 - DDD (degenerative disc disease), lumbar 11/07/2016 - Diarrhea - Esophageal reflux 08/29/2006 - Essential hypertension, benign - Inguinal hernia without mention of obstruction or gangre ne, unilateral or unspecified, (not specified as recurrent) 10/11/2008 - Mixed hyperlipidemia 09/02/2006 - Nonspecific (abnormal) findings on radiological and other examination of abdominal area, including retroperitoneum - PAD (peripheral artery disease) (HCC) - Prostate cancer (HCC) - 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 - Umbilical hernia without mention of obstruction or gangren e 10/11/2008 PAST SURGICAL HISTORY Procedure Laterality Date - COLONOSCOP W/ OR W/O [facility] SPEC 04/26/2014 Colonoscopy - COLONOSCOP W/ OR W/O [facility] SPEC 05/07/16 Colonoscopy - COLONOSCOPY AND POLYPECTOMY 05/15/10 tubular adenomas removed- [place] - LAMINECTOMY,>2 SGMT,LUMBAR 06/11/2018 [facility], [place] - PAST SURGICAL HISTORY OF 2001 bilat cataracts, retina - RECONSTRUCT PROX HUMERAL IMPLANT Right 1993 Arthroplasty, shoulder right x 2. 1991, 1993. - REPAIR ING HERNIA,5+Y/O,REDUCIBL 11/26/2008 left - REPAIR ING HERNIA,5+Y/O,REDUCIBL 01/20/2018 Hernia repair, inguinal right, indirect w/medium mesh plug [facility] - REPAIR UMBILICAL ALBERT,5+Y/O,REDUC 11/26/2008 - SEED IMPLANT 05/2010 for prostate cancer - SIGMOIDOSCOPY FLEX DIAG 12/05/10 FAMILY HISTORY Problem Relation Age of Onset - Diabetes Brother skin cancer - Prostate Cancer Brother - Stroke Mother - Blood Disease Father - Coronary Artery Disease Brother - other (Other) Brother paraplegia Social History Tobacco Use - Smoking status: Current Every Day Smoker Packs/day: 0.50 Years: 30.00 Pack years: 15.00 Types: Cigarettes - Smokeless tobacco: Never Used Substance Use Topics - Alcohol use: Yes Alcohol/week: 7.5 standard drinks Types: 3 Glasses of Wine (5oz) per week Comment: 1/2 oz at night - Drug use: No ALLERGIES No Known Allergies Medications: Current Outpatient Medications Medication Sig Dispense Refill - clopidogrel (PLAVIX) 75 mg tablet Take 1 tablet by mouth o nce daily. 90 tablet 3 - omeprazole (PRILOSEC) 20 mg capsule Take 1 capsule b y mouth once daily. 90 capsule 1 - cyclobenzaprine (FLEXERIL) 10 mg table t Take 1 tablet by mouth at bedtime as needed for Muscle Spasm. 30 tablet 5 - cilostazol (PLETAL) 50 mg tablet Take 1 tablet by mouth tw ice daily. 60 tablet 0 - amLODIPine (NORVASC) 10 mg tablet Take 1 tablet by mouth o nce daily. 90 tablet 1 - gabapentin (NEURONTIN) 300 mg capsule 1 capsule in t he morning. Continue 2 capsules at bedtime. 270 capsule 3 - lisinopril (ZESTRIL, PRINIVIL) 20 mg tablet Take 1 tablet by mouth every evening. 90 tablet 1 - lisinopril-hydrochlorothiazide (PRINZIDE,ZESTORETIC) 20-12.5 mg per tablet Take 1 tablet by mouth every morning. 90 tablet 1 - meloxicam (MOBIC) 15 mg tablet Take 1 tablet by mout h once daily as needed (joint pains.). Take with food. 30 tablet 1 - metoprolol tartrate, short acting, (LO PRESSOR) 50 mg tablet Take 1 tablet by mouth twice daily. 180 tablet 1 - atorvastatin (LIPITOR) 10 mg tablet Take 1 tablet by fermín th once daily. 90 tablet 3 - triamcinolone acetonide (K ENALOG) 0.5 % cream Apply 1 application to affected area twice daily. For rash/i tching. Apply sparingly. Avoid face/skin fold. 30 g 0 - aspirin, enteric coated (ASPIRIN, ENTERIC COATED) 81 mg EC tablet Take 1 tablet by mouth once daily. 0 No current facility-administered medications for this visit. Review of Systems Constitutional: Positive for malaise/fatigue. Negative for chills, diaphoresis, fever and weight loss. HENT: Negative for congestio n, ear pain, hearing loss, nosebleeds and tinnitus. Eyes: Negative for blurred vision, double vision and photoph obia. Respiratory: Negative for cough, hemoptysis, sputum pr oduction, shortness of breath and wheezing. Cardiovascular: Positive for claudication. Negative for ches t pain, palpitations, orthopnea, leg swelling and PND. Gastrointestinal: Negative for abdominal pain, blood i n stool, constipation, diarrhea, heartburn, melena, nausea and vomiting. Genitourinary: Negative for dysuria, frequency, hematuria an d urgency. Musculoskeletal: Negative for myalgias. Skin: Negative for itching and rash. Neurological: Positive for sensory change. Negative for dizz iness, focal weakness, seizures and headaches. Endo/Heme/Allergies: Bruises/bleeds easily. Psychiatric/Behavioral: Negative for depression and me alfonzo loss. The patient does not have insomnia. Physical Examination: Vitals:BP 140/82 Pulse 100 Ht 5' 7 (1.70m) Wt 158 lb (71.7kg) SpO2 92% BMI 24.74 kg/(m2). BP w/Orthostatic Vitals Date and Time Orthostatic BP Orthostatic Pulse BP Pulse BP Position BP Site BP Cuff Size 08/25/19 1312 -- -- 140/82 100 Sitting Right Arm Regular Matt lt Last 2 Encounter Wt Readings: Date: Wt: 08/25/2019 158 lb (71.7 kg) 08/19/2019 160 lb 3.2 oz (72.7 kg) Physical Exam Constitutional: He is oriented to person, place, and time and well-developed, well-nourished, and in no distress. HENT: Head: Normocephalic. Eyes: Conjunctivae and EOM are normal. Neck: No JVD present. No thyromegaly present. Cardiovascular: Normal rate, regular rhythm, S1 normal , S2 normal and normal heart sounds. PMI is not dis placed. Exam reveals no gallop and no friction rub. No murmur heard. Pulses: Radial pulses are 1+ on the right side and 1+ on the left si de. Dorsalis pedis pulses are 2+ on the right side and 1+ on the left side. Posterior tibial pulses are 2+ on the right side and 1+ on t he left side. Pulmonary/Chest: Effort normal and breath sounds normal. No respiratory distress. He has no wheezes. He has no rales. He exhibits no tenderness. Abdominal: Soft. Bowel sounds are normal. He exh ibits no distension. There is no tenderness. There is no rebound and no guarding. Musculoskeletal: Normal range of motion. General: No tenderness, deformity or edema. Neurological: He is alert and oriented to person , place, and time. No cranial nerve deficit. Gait normal. Skin: Skin is warm and dry. No rash noted. No erythema. No p allor. Psychiatric: Mood, memory, affect and judgment normal. Nursing note and vitals reviewed. Pertinent Labs: CBC: Hemoglobin (g/dL) Date Value 08/17/2019 16.1 Hematocrit (%) Date Value 08/17/2019 46.8 WBC (k/uL) Date Value 08/17/2019 6.54 Platelet Count (k/uL) Date Value 08/17/2019 240 BMP: Glucose (mg/dL) Date Value 08/17/2019 75 Potassium (mmol/L) Date Value 08/17/2019 3.8 Sodium (mmol/L) Date Value 08/17/2019 137 Chloride (mmol/L) Date Value 08/17/2019 99 CO2 (mmol/L) Date Value 08/17/2019 26 Creatinine (mg/dL) Date Value 08/17/2019 1.03 BUN (mg/dL) Date Value 08/17/2019 18 Anion Gap (mmol/L) Date Value 08/17/2019 12 Calcium (mg/dL) Date Value 08/17/2019 9.9 INR: Lipid Profile: Cholesterol, Total Date Value Ref Range Status 10/21/2018 112 <200 mg/dL Final Comment: <200 mg/dL, Desirable 200-239 mg/dL, Borderline high >239 mg/dL, High HDL Cholesterol Date Value Ref Range Status 10/21/2018 39 (L) >39 mg/dL Final Comment: 40-59 mg/dL, Acceptable >59 mg/dL, High: Negative risk factor for coronary heart dis ease <40 mg/dL, Low: Positive risk factor for coronary heart dise ase LDL Cholesterol Date Value Ref Range Status 10/21/2018 60 <100 mg/dL Final Comment: <100 mg/dL, Optimal 100-129 mg/dL, Near optimal/above optimal 130-159 mg/dL, Borderline high 160-189 mg/dL, High >189 mg/dL, Very high Secondary prevention optimal LDL Cholest govind levels are recommended to be < 70 mg/dL Triglyceride Date Value Ref Range Status 10/21/2018 67 <150 mg/dL Final Comment: <150 mg/dL, Normal 150-199 mg/dL, Borderline high 200-499 mg/dL, High >499 mg/dL, Very high Hemoglobin A1C: No results found for: HGBA1C TSH: No results found for: TSHREFL Most Recent Cardiac Testing Electrocardiogram 08/25/2019 : Normal sinus rhythm (HI intervals 160 ms; QRS 104 ms; QTC is 431 ms). RSR' in V1. Echocardiogram 08/17/2019: - The left ventricle is normal in size. There is mild upper septal left ventricular hypertrophy. Left ventricula r systolic function is normal. EF = 58 ? 5% (2D biplane) Grade I left ventricular diast olic dysfunction. Wall motion abnormalities as stated above. - The right ventricle is?nor mal in size. Right ventricular systolic function is normal. - There are no significant valvular abnormalities. SPECT perfusion 08/19/2019: ?1. SPECT Perfusion Study: Normal. ?2. There is no scintigraphic evidence for inducible ischemi a. ?3. No evidence of scarred myocardium. ?4. Functional capacity N/A (pharmacological). ?5. Left ventricle is normal in size. The left v entricle systolic function is normal. ?6. Right ventricle is normal in size. ?7. This is a low risk scan. LVEF % 66 Assessment and Plan: 79 year old with peripheral arterial disease who is sc heduled for peripheral artery intervention. Assessment -Patient is asymptomatic from a cardiac perspective. -His LVEF was normal on echocardiogram and pharmacological M PI -His pharmacological MPI did not show any significant areas of myocardial ischemia/infarction. -He does not have any significant valve disease -His blood pressure is somewhat elevated today. He notes marc t his blood pressures usually controlled and he is somewhat anxious this morning. Therapy --The importance of smoking cessation was discussed. Thang loco is not ready to quit smoking at this time. --Continue low salt/heart healthy diet --Continue atorvastatin (target LDL less than 70-100 mg/dL) --Continue Plavix. He has stopped aspirin on his own accor d. I informed him that there is no clear benefit of Plavix in johny tion to aspirin at this time. Deferred and complaining management to his vascular surgeon, Dr. Mena. --Continue Pletal for now. She is unsure if he has benefited from Pletal therapy. He has not had any major side effects thus far. --Supervised exercise as per vascular surgery --Continue amlodipine, lisinopril, hydro chlorothiazide and metoprolol. Monitor blood pressure and considering adjusting antihypertensives. Perioperative risk assessment --His risk for perioperative cardiac events are low (approxi mately at 1%) --No further cardiac testing --Proceed with peripheral arterial inter vention/surgery understanding benefits and risks Follow up in 6 months time or with any new symptoms/concerns . Electronically signed by Lynnette Traore MD on August 25, 2019, 1:35 PM Lynnette Traore MD 08/25/2019 1:59 PM Signed What is peripheral artery disease? ? Peripheral artery disea se (PAD) is a condition that can cause leg pain that gets worse with activity. Muscle pain that gets worse with activity and better with rest is called claudication. PAD affects the blood vessels (called arteries) that bring blood to the legs. PAD can also cause wounds to heal more s lowly than usual. This article is only about the leg pain related to PAD. Normally, blood flows easily through arteries to all parts of the body. But sometimes, fatty clumps call ed plaques build up inside the conte of arteries. Plaques can cause arteries to become narrow or blocked. Th is prevents blood from flowing normally. When muscles do not get enough blood, symptoms can occur. Some people have a greater chance of getting PAD, such as cheryl ose who: ?Smoke ?Have diabetes ?Have high cholesterol ?Have high blood pressure What are the symptoms of PAD? ? PAD ofte n causes pain in the back of the lower leg. The pain usually gets worse with walking or other exerc ise, and gets better with rest. PAD can al so cause pain in the buttocks, thighs, or sometimes in the feet. People who have leg pain can have other s ymptoms, too, such as: ?Trouble walking up stairs ?Trouble getting an erection (in men) or trouble with sexual arousal (in women) Symptoms of claudication can be mild or severe, depending on : ?Which arteries are affected ?How narrow the arteries are ?How much activity a person does Is there a test for PAD? ? Yes. Your doc tor or nurse can do different tests to find out if you have PAD, and to check how severe it is. He or she might: ?Take the blood pressure in your arm and lower leg (ju st above the ankle) at rest and right after exercise, and compare them ?Take the blood pressure in other places in your leg (like t he thigh) ?Order a blood vessel imaging test such as an ultrasound, wh ich can show pictures of your leg arteries How can I help treat my PAD? ? To help treat your PAD and pr event it from getting worse, you can: ?Stop smoking ?Get your diabetes, high blo od pressure, and high cholesterol under control (if you have these conditions) ?Walking ? Doctors recommend that most people with PAD walk every day. Ask your doctor or nurse how best to begin a walking program. What other treatments might I have? ? Al oscar with a walking program and getting medical conditions under control, some p eople are also treated with medicines. The medicines used to treat PAD can reduce symptoms, increase blood flow to the legs, and help people walk farther without pain. Most doctor s ask their patients to try a medicine called cilostazol (br and name: Pletal). But people who have certain heart problems cannot take cilostazol and m ust take a different medicine. If you still have severe sym ptoms after trying medicines, your doctor will talk with you about the possibility of having surgery or a proc edure to increase blood flow to your legs and feet. Your treatment options sana ht include: ?Angioplasty or stenting ? During angioplasty or stenting, the doctor sends a thin tube with a balloon at the end of it to the part of t he artery that is blocked. Then the doctor inflates the balloon to open the blockage. Often the doctor props open the artery using a tiny mesh tube called a stent, which stays in the body. ?Bypass surgery ? During bypass surgery, the doctor re moves a piece of blood vessel (vein) from another part of the body. Then he or sh e reattaches that piece of blood vessel (called a vein graft) above and below the area that is clogged. This re-routes bloo d around the clog, and allows it to get to the part of the leg that was not getting enough blood. Sometimes in stead of taking a graft from another part of the body, the doctor can use a ma n-made graft. What should I know about the different procedure s? ? Angioplasty and stenting are used to treat 1 or 2 blocked areas that are short. Surgery works best to treat many or longer blocked areas. People who have the fewe st long-term problems after bypass surgery include those who are younge r than 70, do not have diabetes, and do not have PAD below the knee. Your doctor might recommend a procedure for you, depaide ding on your symptoms, age, and medical problems. But many peop le can choose which procedure to have. If your doctor offers you a choice, ask: ?What are the benefits of each procedure for me? ?What are the downsides of each procedure for me? ?What happens if I do not have any procedure? Referring Provider: SELF [[id number]] Allergies As of Date: 08/25/2019 (No Known Allergies) Date Reviewed: 08/25/2019 Reviewed by: Arlet (Ann-Marie) Pako - Fully Assessed Reason for Visit: Cardiology Follow Up [1732] Cmt: Referral from Dr. 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 ([facility]) [I70.212] Other Visit Diagnoses:PAD (peripheral artery disease) ([facility]) [I73.9] DDD (degenerative disc disease), lumbar [M51.36] Order(s):ECG B/O W INTERP (MED OFFICE) [ECG06] Order #: [id number] cilostazol (PLETAL) 50 mg tabletTake 1 tablet by mouth twice daily.Disp: 180 tabletRfl: 2 cyclobenzaprine (FLEXERIL) 10 mg tabletTake 1 tablet by mout h at bedtime as needed for Muscle Spasm.Disp: 30 tabletRfl: 0 Prescriptions as of 08/25/2019 Sig: CILOSTAZOL 50 MG TABLET Take 1 tablet by mouth twice * CYCLOBENZAPRINE 10 MG TABLET Take 1 tablet by mouth at bed* CLOPIDOGREL 75 MG TABLET Take 1 tablet by mouth once d* OMEPRAZOLE 20 MG CAPSULE,ROCK* Take 1 capsule by mouth once * AMLODIPINE 10 MG TABLET Take 1 tablet by mouth once d* GABAPENTIN 300 MG CAPSULE 1 capsule in the morning. Co* LISINOPRIL 20 MG TABLET Take 1 tablet by mouth every * LISINOPRIL 20 MG-HYDROCHLOROT* Take 1 tablet by mouth every * MELOXICAM 15 MG TABLET Take 1 tablet by mouth once d* METOPROLOL TARTRATE 50 MG TAB* Take 1 tablet by mouth twice * ATORVASTATIN 10 MG TABLET Take 1 tablet by mouth once d* TRIAMCINOLONE ACETONIDE 0.5 %* Apply 1 application to affect * Problem List As Of Date 08/25/2019 Noted Resolved Dermatophytosis of foot [B35.3] 11/27/2005 06/14/2017 ESOPHAGEAL REFLUX [K21.9] 08/29/2006 HYPERTENSION NOS [I10] 09/02/2006 03/29/2014 More... MIXED HYPERLIPIDEMIA [E78.2] 09/02/2006 More... Ganglion of tendon sheath [M67.40] 03/19/2007 11/07/2016 Unspecified disorder of prostate [N42.9] 06/21/2007 09/06/20 14 Inguinal hernia without mention of obstruction *10/11/2008 0 11/07/2016 Umbilical hernia without mention of obstruction*10/11/2008 0 11/07/2016 Rotator cuff (capsule) sprain [S43.429A] 09/20/2009 11/07/19 17 Malignant neoplasm of prostate (HCC) [C61] 02/07/20102016 More... Benign neoplasm of rectum and anal canal [D12.8*05/15/2010 More... Tobacco use disorder [F17.200] 05/23/2010 More... Frequency of urination [R35.0] 10/02/2010 11/07/2016 Prostate cancer [C61] Diarrhea [R19.7] 12/05/2010 09/06/2014 Inguinal neuralgia [M79.2] 03/12/2013 11/07/2016 Rotator cuff impingement syndrome of right shou*04/10/2015 Medicare annual wellness visit, subsequent [Z00*04/10/2015 0 06/20/2018 Right-sided low back pain with right-sided scia*10/03/2015 0 05/15/2016 Essential hypertension [I10] 10/16/2015 DDD (degenerative disc disease), lumbar [M51.36]11/07/2016 Clostridium difficile colitis [A04.72] 05/14/2017 06/20/2018 Inguinal hernia [K40.90] 01/20/2018 06/20/2018 More... Traumatic complete tear of left rotator cuff [S*11/03/2018 More... Atherosclerosis of [place] artery of left lower *07/22/2019 Other instructions from your clinician: What is peripheral artery disease? ? Peripheral artery disea se (PAD) is a condition that can cause leg pain that gets worse with activ ity. Muscle pain that gets worse with activity and better with rest is c alled claudication. PAD affects the blood vessels (called arteri es) that bring blood to the legs. PAD can also cause wounds to heal more sl owly than usual. This article is only about the leg pain related to PA D. Normally, blood flows easily through arteries to all parts o f the body. But sometimes, fatty clumps called plaques build up inside the conte of arteries. Plaques can cause arteries to become narrow or blo cked. This prevents blood from flowing normally. When muscles do not ge t enough blood, symptoms can occur. Some people have a greater chance of getting PAD, such as cheryl myers who: ?Smoke ?Have diabetes ?Have high cholesterol ?Have high blood pressure What are the symptoms of PAD? ? PAD often causes pain in the back of the lower leg. The pain usually gets worse with walking or other exercise, and gets better with rest. PAD can also cause pain in the buttoc ks, thighs, or sometimes in the feet. People who have leg pain can have oth er symptoms, too, such as: ?Trouble walking up stairs ?Trouble getting an erection (in men) or trouble with sexual arousal (in women) Symptoms of claudication can be mild or severe, depending on : ?Which arteries are affected ?How narrow the arteries are ?How much activity a person does Is there a test for PAD? ? Yes. Your doctor or nurse can do different tests to find out if you have PAD, and to check how severe i t is. He or she might: ?Take the blood pressure in your arm and lower leg (just abo ve the ankle) at rest and right after exercise, and compare them ?Take the blood pressure in other places in your leg (like t he thigh) ?Order a blood vessel imaging test such as an ultrasound, wh ich can show pictures of your leg arteries How can I help treat my PAD? ? To help treat your PAD and pr event it from getting worse, you can: ?Stop smoking ?Get your diabetes, high blood pressure, and high cholestero l under control (if you have these conditions) ?Walking ? Doctors recommend that most people with PAD walk every day. Ask your doctor or nurse how best to begin a walking program. What other treatments might I have? ? Along with a walking p rogram and getting medical conditions under control, some people are al so treated with medicines. The medicines used to treat PAD can reduce s ymptoms, increase blood flow to the legs, and help people walk farthe r without pain. Most doctors ask their patients to try a medicine call ed cilostazol (brand name: Pletal). But people who have certain heart prob lems cannot take cilostazol and must take a different medicine. If you still have severe symptoms after trying medicines, yo ur doctor will talk with you about the possibility of having surgery or a p rocedure to increase blood flow to your legs and feet. Your treatment op tions might include: ?Angioplasty or stenting ? During angioplasty or stenting, t he doctor sends a thin tube with a balloon at the end of it to the par t of the artery that is blocked. Then the doctor inflates the balloon to open the blockage. Often the doctor props open the artery using a tin y mesh tube called a stent, which stays in the body. ?Bypass surgery ? During bypass surgery, the doctor removes a piece of blood vessel (vein) from another part of the body. Then he o r she reattaches that piece of blood vessel (called a vein graft) above and below the area that is clogged. This re-routes blood around the clog, and allows it to get to the part of the leg that was not getting enough blood. Sometimes instead of taking a graft from another part of the body, the doctor can use a man-made graft. What should I know about the different procedures? ? Angiopl asty and stenting are used to treat 1 or 2 blocked areas that are jan rt. Surgery works best to treat many or longer blocked areas. People who have the fewest long-term problems after bypass surgery include those who are younger than 70, do not have diabetes, and do not have PAD b elow the knee. Your doctor might recommend a procedure for you, depending o n your symptoms, age, and medical problems. But many people can cho ose which procedure to have. If your doctor offers you a choice, ask: ?What are the benefits of each procedure for me? ?What are the downsides of each procedure for me? ?What happens if I do not have any procedure? Visit Notes: >> Arlet Galeano Aug 25, 2019 1:18 PM Status: Sig yanira Mr. Vazquez is here as new patient. No cardiac complaints or symptoms. Arlet Min Prescriptions ordered this encounter Disp Refills Start End CILOSTAZOL 50 MG TABLET 180 * 2 08/25/2019 11/23/2019 Route: ORAL Sig: Take 1 tablet by mouth twice daily. CYCLOBENZAPRINE 10 MG TABLET 30 t* 0 08/25/2019 09/24/2019 Route: ORAL Sig: Take 1 tablet by mouth at bedtime as needed for Muscle Spasm. Medications Discontinued During This Encounter aspirin, enteric coated (ASPIRIN, EN* 0 05/21/2017 08/25/2019 Class: Historical Med Route: ORAL Sig: Take 1 tablet by mouth once daily. Disc: Reason for discontinue is not on file. cilostazol (PLETAL) 50 mg tablet 60 t* 0 07/01/2019 9 Route: ORAL Sig: Take 1 tablet by mouth twice daily. Disc: Reason for discontinue is not on file. cyclobenzaprine (FLEXERIL) 10 mg tab* 30 t* 5 07/23/201909/2019 Route: ORAL Sig: Take 1 tablet by mouth at bedtime as needed for Muscle Spasm. Disc: Reason for discontinue is not on file. Disposition: Return in about 6 months (around 2020). Follow-up and Disposition History Recorded Encounter Status:Closed by LYNNETTE TRAORE on 08/25/19 obsolete on 2019-08 OBSOLETE Procedure ([facility]D) Normal 08-20-2019 [place] [facility] TYE VAZQUEZ ([id number]) 1940 M [place] Date Time Provider Department ([id number]) 08/20/19 AORN MENA During your visit today, we recorded the following informati on about you: Allergies As of Date: 08/20/2019 (No Known Allergies) Date Reviewed: 08/19/2019 Reviewed by: Aron Mena - Fully Assessed Reason for Visit: Schedule Surgery [1330] Primary Visit Diagnosis:PAD (peripheral artery disease) ([facility] ) [I73.9] Order(s):SURGICAL REQUEST - ELECTIVE [[id number]] Order #: [id number]: 1 Prescriptions as of 08/20/2019 Sig: CLOPIDOGREL 75 MG TABLET Take 1 tablet by mouth once d* TRAMADOL 50 MG TABLET Take 1 tablet by mouth every * OMEPRAZOLE 20 MG CAPSULE,ROCK* Take 1 capsule by mouth once * CYCLOBENZAPRINE 10 MG TABLET Take 1 tablet by mouth at bed* CILOSTAZOL 50 MG TABLET Take 1 tablet by mouth twice * AMLODIPINE 10 MG TABLET Take 1 tablet by mouth once d* GABAPENTIN 300 MG CAPSULE 1 capsule in the morning. Co* LISINOPRIL 20 MG TABLET Take 1 tablet by mouth every * LISINOPRIL 20 MG-HYDROCHLOROT* Take 1 tablet by mouth every * MELOXICAM 15 MG TABLET Take 1 tablet by mouth once d* METOPROLOL TARTRATE 50 MG TAB* Take 1 tablet by mouth twice * ATORVASTATIN 10 MG TABLET Take 1 tablet by mouth once d* TRIAMCINOLONE ACETONIDE 0.5 %* Apply 1 application to affect * ASPIRIN 81 MG TABLET,DELAYED * Take 1 tablet by mouth once d * Problem List As Of Date 08/20/2019 Noted Resolved Dermatophytosis of foot [B35.3] INVALID FOR*06/14/2017 ESOPHAGEAL REFLUX [K21.9] INVALID FOR* HYPERTENSION NOS [I10] INVALID FOR*03/29/2014 More... MIXED HYPERLIPIDEMIA [E78.2] INVALID FOR* More... Ganglion of tendon sheath [M67.40] INVALID FOR*11/07/2016 Unspecified disorder of prostate [N42.9] INVALID FOR* 014 Inguinal hernia without mention of obstruction *INVALID FOR* 11/07/2016 Umbilical hernia without mention of obstruction*INVALID FOR* 11/07/2016 Rotator cuff (capsule) sprain [S43.429A] INVALID FOR* 017 Malignant neoplasm of prostate (HCC) [C61] INVALID FOR*11/07 More... Benign neoplasm of rectum and anal canal [D12.8*INVALID FOR* More... Tobacco use disorder [F17.200] INVALID FOR* More... Frequency of urination [R35.0] INVALID FOR*11/07/2016 Prostate cancer [C61] Diarrhea [R19.7] INVALID FOR*09/06/2014 Inguinal neuralgia [M79.2] INVALID FOR*11/07/2016 Rotator cuff impingement syndrome of right shou*INVALID FOR* Medicare annual wellness visit, subsequent [Z00*INVALID FOR* 06/20/2018 Right-sided low back pain with right-sided scia*INVALID FOR* 05/15/2016 Essential hypertension [I10] INVALID FOR* DDD (degenerative disc disease), lumbar [M51.36]INVALID FOR* Clostridium difficile colitis [A04.72] INVALID FOR* 8 Inguinal hernia [K40.90] INVALID FOR*06/20/2018 More... Traumatic complete tear of left rotator cuff [S*INVALID FOR* More... Atherosclerosis of [place] artery of left lower *INVALID FOR* Encounter Status:Closed by ARON MENA MD on 08/21/19 hosp on 2019-08-20 HOSP Patient:Tye Vazquez [address] [place] [address] ) Height:5' 7(1.702 m) Weight:158 lb (71.668 kg) Outpatient Medications as of 09/15/19: lisinopril (ZESTRIL, PRINIVIL) 20 mg tablet lisinopril-hydrochlorothiazide (PRINZIDE,ZESTORETIC) 20-12.5 mg per tablet amLODIPine (NORVASC) 10 mg tablet metoprolol tartrate, short acting, (LOPRESSOR) 50 mg tablet clopidogrel (PLAVIX) 75 mg tablet cilostazol (PLETAL) 50 mg tablet omeprazole (PRILOSEC) 20 mg capsule atorvastatin (LIPITOR) 10 mg tablet cyclobenzaprine (FLEXERIL) 10 mg tablet gabapentin (NEURONTIN) 300 mg capsule meloxicam (MOBIC) 15 mg tablet triamcinolone acetonide (KENALOG) 0.5 % cream Admission/Clinic Administered Medications as of 09/15/19: Patient has no admission medications. Problem List: Esophageal reflux [K21.9] Mixed hyperlipidemia [E78.2] Benign neoplasm of rectum and anal canal [D12.8, D12.9] Tobacco use disorder [F17.200] Prostate cancer (HCC) [C61] Rotator cuff impingement syndrome of right shoulder [M75.41] Essential hypertension [I10] DDD (degenerative disc disease), lumbar [M51.36] Traumatic complete tear of left rotator cuff [S46.012A] Atherosclerosis of [place] artery of left lower extremity wit h intermittent claudication (HCC) [I70.212] Allergies: No Known Allergies Date Verified:08/28/19 Lab Values Lab Value Units Date High Low POTA* 3.8 mmol/L 08/17/2019 5.1 3.7 CECY* 46.8 % 08/17/2019 51.0 39.0 Progress Notes ([facility]): Merlene Evans RN 09/09/2019 11:13 AM Signed Patient phones requesting refills as follows: *pt out of town and left meds at home, only needs pills for 1 week Pending Prescriptions Disp Refills LISINOPRIL 20 MG TABLET 7 tablet 0 Sig: Take 1 tablet by mouth every evening. SAY: No LISINOPRIL 20 MG-HYDROCHLOROTHIAZIDE 12.5 MG TABLET 7 tablet 0 Sig: Take 1 tablet by mouth every morning. SAY: No AMLODIPINE 10 MG TABLET 7 tablet 0 Sig: Take 1 tablet by mouth once daily. SAY: No METOPROLOL TARTRATE 50 MG TABLET 14 tablet 0 Sig: Take 1 tablet by mouth twice daily. SAY: No CLOPIDOGREL 75 MG TABLET 7 tablet 0 Sig: Take 1 tablet by mouth once daily. SAY: No CILOSTAZOL 50 MG TABLET 14 tablet 0 Sig: Take 1 tablet by mouth twice daily. SAY: No OMEPRAZOLE 20 MG CAPSULE,DELAYED RELEASE 7 capsule 0 Sig: Take 1 capsule by mouth once daily. SAY: No ATORVASTATIN 10 MG TABLET 7 tablet 0 Sig: Take 1 tablet by mouth once daily. SAY: No Verified pharmacy Last office visit 08-17-19 Please review and advise. Merlene Bolaños MD 09/09/2019 12:03 PM Signed Refills sent. Priya Olivier Cma 09/09/2019 12:12 PM Signed The following approved medic ation requests have been transmitted electronically. Signed Prescriptions Disp Refills lisinopril (ZESTRIL, PRINIVIL) 20 mg tablet 7 tablet 0 Sig: Take 1 tablet by mouth every evening. SAY: No Authorizing Provider: TALON BOLAÑOS lisinopril-hydrochlorothiazide (PRINZIDE,ZESTORETIC) 2 0-12.5 mg per tablet 7 tablet 0 Sig: Take 1 tablet by mouth every morning. SAY: No Authorizing Provider: TALON BOLAÑOS amLODIPine (NORVASC) 10 mg tablet 7 tablet 0 Sig: Take 1 tablet by mouth once daily. SAY: No Authorizing Provider: TALON BOLAÑOS metoprolol tartrate, short acting, (LOPRESSOR) 50 mg tablet 14 tablet 0 Sig: Take 1 tablet by mouth twice daily. SAY: No Authorizing Provider: TALON BOLAÑOS clopidogrel (PLAVIX) 75 mg tablet 7 tablet 0 Sig: Take 1 tablet by mouth once daily. SAY: No Authorizing Provider: TALON BOLAÑOS cilostazol (PLETAL) 50 mg tablet 14 tablet 0 Sig: Take 1 tablet by mouth twice daily. SAY: No Authorizing Provider: TALON BOLAÑOS omeprazole (PRILOSEC) 20 mg capsule 7 capsule 0 Sig: Take 1 capsule by mouth once daily. SAY: No Authorizing Provider: TALON BOLAÑOS atorvastatin (LIPITOR) 10 mg tablet 7 tablet 0 Sig: Take 1 tablet by mouth once daily. SAY: No Authorizing Provider: TALON BOLAÑOS Cma Progress Notes ([facility]): Zora Hamlin RN 08/26/2019 10:20 AM Signed [employer] Prior Auth form for Pletal placed in Dr Traore's door box. Zora Hamlin RN progress on 2019-08 PROGRESS HNO ID: [id number] Normal 08-19-2019 [facility] Author: Aron Mena [place] Service: ? ([id number]) Author Type: Physician Type: Progress Notes Filed: 08/19/2019 4:48 PM Note Text: [facility] OUTPATIENT VISIT DATE August 19, 2019 OUTPATIENT VISIT TYPE ESTABLISHED PRIMARY CARE PHYSICIAN: Talon Bolaños MD [address] [place] [address] REFERRING PHYSICIAN Aron Mena MD [address] [facility] [address] CHIEF COMPLAINT: Patient presents with: Established Patient Follow-Up: Test Results HISTORY OF PRESENT ILLNESS: Tye Vazquez was referred for consultation by ?Dr. Aguilar jose. ?Opinions and recommendations in this consultation will be transmitted back to the referring physician by Epic notes or via mail. ? ?is a 79 year old male PMH DDD?who is seen today for follow up evaluation for PAD, and leg claudication symptoms. He as well has been having numbness in the bilateral feet ho wever worse on the left, most prominently affecting the great toe. Denies any ulceration or wounds. 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 ? He underwent CTA which suggests a proximal left SFA stenosis with subsequent occlusion of the popliteal artery. No wounds on feet or toes. In May 2018 underwent spine surgery which resolved many o f his lower extremity complaints. Subsequently had a fall and has result ed in shoulder injury as well as new onset of left leg pain. ? Prior SAMANTHA 09/2018 1 bilaterally. Smokes few cig/day, had smoked 15 pack years. PAST MEDICAL HISTORY Diagnosis Date - Benign neoplasm of colon - Benign neoplasm of rectum and anal canal - Clostridium difficile colitis 05/14/2017 - DDD (degenerative disc disease), lumbar 11/07/2016 - Diarrhea - Esophageal reflux 08/29/2006 - Essential hypertension, benign - Inguinal hernia without mention of obstruction or gangrene , unilateral or unspecified, (not specified as recurrent) 10/11/2008 - Mixed hyperlipidemia 09/02/2006 - Nonspecific (abnormal) findings on radiological and other examination of abdominal area, including retroperitoneum - Prostate cancer (HCC) - 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. - Umbilical hernia without mention of obstruction or gangren e 10/11/2008 PAST SURGICAL HISTORY Procedure Laterality Date - COLONOSCOP W/ OR W/O [facility] SPEC 04/26/2014 Colonoscopy - COLONOSCOP W/ OR W/O [facility] SPEC 05/07/16 Colonoscopy - COLONOSCOPY AND POLYPECTOMY 05/15/10 tubular adenomas removed- [place] - LAMINECTOMY,>2 SGMT,LUMBAR 06/11/2018 [facility] - PAST SURGICAL HISTORY OF 2001 bilat cataracts, retina - RECONSTRUCT PROX HUMERAL IMPLANT Right 1993 Arthroplasty, shoulder right x 2. 1991, 1993. - REPAIR ING HERNIA,5+Y/O,REDUCIBL 11/26/2008 left - REPAIR ING HERNIA,5+Y/O,REDUCIBL 01/20/2018 Hernia repair, inguinal right, indirect w/medium mesh plug [facility] - REPAIR UMBILICAL ALBERT,5+Y/O,REDUC 11/26/2008 - SEED IMPLANT 05/2010 for prostate cancer - SIGMOIDOSCOPY FLEX DIAG 12/05/10 SOCIAL HISTORY Social History Tobacco Use - Smoking status: Current Every Day Smoker Packs/day: 0.50 Years: 30.00 Pack years: 15.00 Types: Cigarettes - Smokeless tobacco: Never Used Substance Use Topics - Alcohol use: Yes Alcohol/week: 7.5 standard drinks Types: 3 Glasses of Wine (5oz) per week Comment: 1/2 oz at night - Drug use: No FAMILY HISTORY Problem Relation Age of Onset - Diabetes Brother skin cancer - Prostate Cancer Brother - Stroke Mother - Blood Disease Father - Coronary Artery Disease Brother - other (Other) Brother paraplegia ALLERGIES: ALLERGIES No Known Allergies MEDICATIONS: clopidogrel (PLAVIX) 75 mg tablet Take 1 tablet by mouth onc e daily. traMADol (ULTRAM) 50 mg tablet Take 1 tablet by mouth every 8 hours as needed for Pain for up to 7 days. omeprazole (PRILOSEC) 20 mg capsule Take 1 capsule by mouth once daily. cyclobenzaprine (FLEXERIL) 10 mg tablet Take 1 tablet by fermín th at bedtime as needed for Muscle Spasm. cilostazol (PLETAL) 50 mg tablet Take 1 tablet by mouth twic e daily. amLODIPine (NORVASC) 10 mg tablet Take 1 tablet by mouth onc e daily. gabapentin (NEURONTIN) 300 mg capsule 1 capsule in the morni ng. Continue 2 capsules at bedtime. lisinopril (ZESTRIL, PRINIVIL) 20 mg tablet Take 1 tablet by mouth every evening. lisinopril-hydrochlorothiazide (PRINZIDE,ZESTORETIC) 20-12.5 mg per tablet Take 1 tablet by mouth every morning. meloxicam (MOBIC) 15 mg tablet Take 1 tablet by mouth once d aily as needed (joint pains.). Take with food. metoprolol tartrate, short acting, (LOPRESSOR) 50 mg tablet Take 1 tablet by mouth twice daily. atorvastatin (LIPITOR) 10 mg tablet Take 1 tablet by mouth o nce daily. triamcinolone acetonide (KENALOG) 0.5 % cream Apply 1 applic ation to affected area twice daily. For rash/itching. Apply sparingly . Avoid face/skin fold. aspirin, enteric coated (ASPIRIN, ENTERIC COATED) 81 mg EC t ablet Take 1 tablet by mouth once daily. REVIEW OF SYSTEMS: GENERAL: no acute distress All other ROS: negative I personally interviewed, confirmed and edited the above inf ormation as obtained by others. PHYSICAL EXAMINATION: BP 112/64 (BP Site: Right Arm, BP Position: Sitting, BP Cuff Size: Regular Adult) Pulse 64 Ht 170.2 cm (5' 7) Wt 72.7 kg (160 lb 3.2 oz) BMI 25.09 kg/m? General appearance: alert and cooperative individual, in no acute distress. Pulmonary: Lungs clear to auscultation bilaterally. Coronary: regular rate Lower Extremities: calves soft, nontender CARDIOVASCULAR MEDICINE TESTING: I have personally reviewed the CTA, SAMANTHA. IMPRESSION/PLAN: ?is a 79 year old male with mixed neurogenic and arterial claudication.? Risks and benefits of left lower extremity angiography and i ntervention were discussed, with risks including but not limited to blee ding at either the access or intervention site, contrast reaction, contrast induced kidney injury and worsening limb ischemia. Understanding thi s Mr. Vazquez wished to proceed in an attempt at alleviating his complaint s. Aron Mena MD nuclear stress lexiscan (card) on 2019-08-19 NUCLEAR STRESS NAME : TYE VAZQUEZ Normal 08-19 [facility] LEXISCAN (CARD) PID : [id number] ( [id number]) : 1940 Gender : Male Race : ORD : [id number] Procedure Date : Aug 19 2019 10:12:51 Edit Date : Aug 20 2019 10:17:46 Conclusions:PLEASE REFER TO IMAGING SECTION IN [facility] FOR COMPLETE INTERPRETATION OF STRESS TEST AND MYOCARDIAL PERFUSION IMAGING Protocol Name : AndroJek Time In Exercise Phase : 00:06:00 Max. Systolic BP : 142 mmHg Max Diastolic BP : 73 mmHg Max Heart Rate : 76 BPM Max Predicted Heart Rate : 141 BPM Recovery ECG Response (OLD) : Reason For Termination : End of Protocol Test Reason : Pre-Op Evaluation Location :[facility] Overread By : CHARLIE MARINA D.O. Edited By : MAGALY LOZANO Referred By : ARON MENA Acquired by : Peggy Evangelista cardiac perf stress/pharm on 2019-08-19 NM CARDIAC PERF * * *Final Report* * * Normal 1 10-19-2018 [facility] STRESS/PHARM DATE OF EXAM: Aug 19 2019 9:29AM ([id number]) JOSÉ 0006 - NM CARDIAC PERF STRESS/PHARM / 616 PROCEDURE REASON: Z01.810-Encounter for preprocedural cardio vascular examination * * * * Physician Interpretation * * * * PATIENT: Name: TAYLOR Loco Age: 79 years Gender: M CONCLUSIONS: 1. SPECT Perfusion Study: Normal. 2. There is no scintigraphic evidence for inducible ischemia . 3. No evidence of scarred myocardium. 4. Functional capacity N/A (pharmacological). 5. Left ventricle is normal in size. The left ventricle syst olic function is normal. 6. Right ventricle is normal in size. 7. This is a low risk scan. LVEF % 66 Prior Study Comparison No prior nuclear cardiology exam avai lable for comparison. Nuclear Med Report:1-Day Tc-Tetrofosmin Gated SPECT Myocardi al Perfusion with Regadenoson Stress: Myocardial perfusion imaging was pe rformed at rest 30 minutes following the IV injection of Tc-99m tetrofo smin. The patient received 0.4 mg of regadenoson, via rapid IV push, i mmediately followed by Tc-99m tetrofosmin IV. Gated post stress tomogra phic imaging was performed 30 to 60 minutes later. See administered doses below. [facility] Date of service: 08/19/2019 9:29:22 AM Ordering Physician: Aron Mena Requesting Physician: Indication: Pre-op, vascular surgery, poor exercise cap, ris k factors. Interpreting physician: Charlie Marina DO Patient History: History of hypertension, dyslipidemia and smoker. Medication s currently taking are plavix, Ca Seda, diuretic, ACEI, B-seda, A, statins and NSAIDS. Height: 170.18 cm BSA: 1.83 m? Weight: 71.22 kg BMI: 24.6 kg/m? Primary Rhythm: Sinus. Secondary Rhythm: Sinus and Non-Specific ST/T Wave Changes. Exam Type: Rest Stress Radiopharm: Tc-99m Tetrofosmin Tc-99m Tetrofosmin Dosage(mCi): 12.3 32.5 Atten Correction: not performed not performed Stress Agent: Regadenoson 0.4mg Supply provided from [facility] Resting Heart Rate: 58 bpm Resting Blood Press: 137/68 mmHg Image Quality The overall study imaging quality was deemed to be good. FINDINGS: LVEF: 66 % LEFT VENTRICLE The left ventricle is normal in size. Left ventricular systo lic function is normal. Right Ventricle The right ventricle is normal in size. Stress Test Findings: There is no scintigraphic evidence for inducible ischemia. T here is no evidence of scarring. The stress test was terminated due to the following: End of Protocol. Peak HR 76 bpm. (54 % MPHR) Peak BP 142 mmHg/73 mmHg Patient experienced shortness of breath during stress. Stress ECG normal ST segment response and normal sinus rhyth m. Stress complications: none. Electronically signed by Charlie Marina DO on 9 at 3:44:55 PM Final Chair: JESUS Transcribe Date/Time: Aug 19 2019 9:29A Dictated by : CHARLIE MARINA DO This examination was interpreted and the report reviewed and electronically signed by: CHARLIE MARINA DO on Aug 19 2019 3:44PM EST [id number] cnov on 2019-08-19 CNOV Office Visit ([facility]) Normal 08-19-20 [facility] TYE VAZQUEZ ([id number]) 1940 M [facility] Time Provider Department ([id number]) 08/19/19 11:30 AM ARON MENA During your visit today, we recorded the following informati on about you: Pulse Blood pressure Weight Height 64/minute 112/64 72.7 kg 1.702 m Aron Mena MD 08/19/2019 4:48 PM Signed [facility] OUTPATIENT VISIT DATE August 19, 2019 OUTPATIENT VISIT TYPE ESTABLISHED PRIMARY CARE PHYSICIAN: Talon Bolaños MD [address] [place] [address] REFERRING PHYSICIAN Aron Mena MD [address] [facility] [address] CHIEF COMPLAINT: Patient presents with: Established Patient Follow-Up: Test Results HISTORY OF PRESENT ILLNESS: Tye Vazquez was referred for consultation by ?Dr. Bolaños. ?Opinions and recommendations in this consultation arlin l be transmitted back to the referring physician by Epic notes or via mail. ? ?is a 79 year old male PMH DDD?who is seen today for follow up evaluation for PAD, and leg claudication symptoms. He as well has been having numbness in t he bilateral feet however worse on the left, most prominently affecting the great toe. Denies any ulceration or wounds. 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 ? He underwent CTA which suggests a proximal left SFA st enosis with subsequent occlusion of the popliteal artery. No wounds on feet or toes. In May 2018 underwent spine surgery which resolved many o f his lower extremity complaints. Subsequently had a fall and has result ed in shoulder injury as well as new onset of left leg pain. ? Prior SAMANTHA 09/2018 1 bilaterally. Smokes few cig/day, had smoked 15 pack years. 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. - Umbilical hernia without mention of obstruction or gangren e 10/11/2008 PAST SURGICAL HISTORY Procedure Laterality Date - COLONOSCOP W/ OR W/O [facility] SPEC 04/26/2014 Colonoscopy - COLONOSCOP W/ OR W/O [facility] SPEC 05/07/16 Colonoscopy - COLONOSCOPY AND POLYPECTOMY 05/15/10 tubular adenomas removed- [place] - LAMINECTOMY,>2 SGMT,LUMBAR 06/11/2018 [facility] [place] - PAST SURGICAL HISTORY OF 2001 bilat cataracts, retina - RECONSTRUCT PROX HUMERAL IMPLANT Right 1993 Arthroplasty, shoulder right x 2. 1991, 1993. - REPAIR ING HERNIA,5+Y/O,REDUCIBL 11/26/2008 left - REPAIR ING HERNIA,5+Y/O,REDUCIBL 01/20/2018 Hernia repair, inguinal right, indirect w/medium mesh plug [facility] - REPAIR UMBILICAL ALBERT,5+Y/O,REDUC 11/26/2008 - SEED IMPLANT 05/2010 for prostate cancer - SIGMOIDOSCOPY FLEX DIAG 12/05/10 SOCIAL HISTORY Social History Tobacco Use - Smoking status: Current Every Day Smoker Packs/day: 0.50 Years: 30.00 Pack years: 15.00 Types: Cigarettes - Smokeless tobacco: Never Used Substance Use Topics - Alcohol use: Yes Alcohol/week: 7.5 standard drinks Types: 3 Glasses of Wine (5oz) per week Comment: 1/2 oz at night - Drug use: No FAMILY HISTORY Problem Relation Age of Onset - Diabetes Brother skin cancer - Prostate Cancer Brother - Stroke Mother - Blood Disease Father - Coronary Artery Disease Brother - other (Other) Brother paraplegia ALLERGIES: ALLERGIES No Known Allergies MEDICATIONS: clopidogrel (PLAVIX) 75 mg tablet Take 1 tablet by mouth onc e daily. traMADol (ULTRAM) 50 mg tablet Take 1 tablet by mouth every 8 hours as needed for Pain for up to 7 days. omeprazole (PRILOSEC) 20 mg capsule Take 1 capsule by mouth once daily. cyclobenzaprine (FLEXERIL) 10 mg tablet Take 1 tablet by mouth at bedtime as needed for Muscle Spasm. cilostazol (PLETAL) 50 mg tablet Take 1 tablet by mouth twic e daily. amLODIPine (NORVASC) 10 mg tablet Take 1 tablet by mouth onc e daily. gabapentin (NEURONTIN) 300 mg capsule 1 capsule in the morni ng. Continue 2 capsules at bedtime. lisinopril (ZESTRIL, PRINIVIL) 20 mg tablet Take 1 tablet by mouth every evening. lisinopril-hydrochlorothiazi de (PRINZIDE,ZESTORETIC) 20-12.5 mg per tablet Take 1 tablet by mouth every morning. meloxicam (MOBIC) 15 mg tablet Take 1 tablet by mouth once d aily as needed (joint pains.). Take with food. metoprolol tartrate, short acting, (LOPRESSOR) 50 mg t ablet Take 1 tablet by mouth twice daily. atorvastatin (LIPITOR) 10 mg tablet Take 1 tablet by mouth o nce daily. triamcinolone acetonide (KENALOG) 0.5 % cream Ap ply 1 application to affected area twice daily. For rash/itching. Apply sparingly. Avoid f carson/skin fold. aspirin, enteric coated (ASP IRIN, ENTERIC COATED) 81 mg EC tablet Take 1 tablet by mouth once daily. REVIEW OF SYSTEMS: GENERAL: no acute distress All other ROS: negative I personally interviewed, confirmed and edited the above inf ormation as obtained by others. PHYSICAL EXAMINATION: BP 112/64 (BP Site: Right Arm, BP Position: Sitting, BP Cuff Size: Regular Adult) Pulse 64 Ht 170.2 cm (5' 7) Wt 72.7 kg (160 lb 3.2 oz) BMI 25.09 kg/m? General appearance: alert and cooperative individual, in n o acute distress. Pulmonary: Lungs clear to auscultation bilaterally. Coronary: regular rate Lower Extremities: calves soft, nontender CARDIOVASCULAR MEDICINE TESTING: I have personally reviewed the CTA, SAMANTHA. IMPRESSION/PLAN: ?is a 79 year old male with mixed neurogenic and arterial claudication.? Risks and benefits of left lower extremity angiography and intervention were discussed, with risks including but not limited to bleeding at either the access or intervention site, contrast re action, contrast induced kidney injury and worsening limb ischemia. Understanding this Mr. Vazquez wished to proceed in an attempt at alleviating his complaints. Aron Mena MD Referring Provider: ARON MENA [[id number]] Allergies As of Date: 08/19/2019 (No Known Allergies) Date Reviewed: 08/19/2019 Reviewed by: Aron Mena - Fully Assessed Reason for Visit: Established Patient Follow-Up [[id number]] Cmt: Test Results Primary Visit Diagnosis:PAD (peripheral artery disease) (HCC ) [I73.9] Other Visit Diagnosis:Smoker [F17.200] Order(s):clopidogrel (PLAVIX) 75 mg tabletTake 1 tablet by m outh once daily.Disp: 90 tabletRfl: 3 Prescriptions as of 08/19/2019 Sig: CLOPIDOGREL 75 MG TABLET Take 1 tablet by mouth once d* TRAMADOL 50 MG TABLET Take 1 tablet by mouth every * OMEPRAZOLE 20 MG CAPSULE,ROCK* Take 1 capsule by mouth once * CYCLOBENZAPRINE 10 MG TABLET Take 1 tablet by mouth at bed* CILOSTAZOL 50 MG TABLET Take 1 tablet by mouth twice * AMLODIPINE 10 MG TABLET Take 1 tablet by mouth once d* GABAPENTIN 300 MG CAPSULE 1 capsule in the morning. Co* LISINOPRIL 20 MG TABLET Take 1 tablet by mouth every * LISINOPRIL 20 MG-HYDROCHLOROT* Take 1 tablet by mouth every * MELOXICAM 15 MG TABLET Take 1 tablet by mouth once d* METOPROLOL TARTRATE 50 MG TAB* Take 1 tablet by mouth twice * ATORVASTATIN 10 MG TABLET Take 1 tablet by mouth once d* TRIAMCINOLONE ACETONIDE 0.5 %* Apply 1 application to affect * ASPIRIN 81 MG TABLET,DELAYED * Take 1 tablet by mouth once d * Problem List As Of Date 08/19/2019 Noted Resolved Dermatophytosis of foot [B35.3] INVALID FOR*06/14/2017 ESOPHAGEAL REFLUX [K21.9] INVALID FOR* HYPERTENSION NOS [I10] INVALID FOR*03/29/2014 More... MIXED HYPERLIPIDEMIA [E78.2] INVALID FOR* More... Ganglion of tendon sheath [M67.40] INVALID FOR*11/07/2016 Unspecified disorder of prostate [N42.9] INVALID FOR* 014 Inguinal hernia without mention of obstruction *INVALID FOR* 11/07/2016 Umbilical hernia without mention of obstruction*INVALID FOR* 11/07/2016 Rotator cuff (capsule) sprain [S43.429A] INVALID FOR* 017 Malignant neoplasm of prostate (HCC) [C61] INVALID FOR*11/07 More... Benign neoplasm of rectum and anal canal [D12.8*INVALID FOR* More... Tobacco use disorder [F17.200] INVALID FOR* More... Frequency of urination [R35.0] INVALID FOR*11/07/2016 Prostate cancer [C61] Diarrhea [R19.7] INVALID FOR*09/06/2014 Inguinal neuralgia [M79.2] INVALID FOR*11/07/2016 Rotator cuff impingement syndrome of right shou*INVALID FOR* Medicare annual wellness visit, subsequent [Z00*INVALID FOR* 06/20/2018 Right-sided low back pain with right-sided scia*INVALID FOR* 05/15/2016 Essential hypertension [I10] INVALID FOR* DDD (degenerative disc disease), lumbar [M51.36]INVALID FOR* Clostridium difficile colitis [A04.72] INVALID FOR* 8 Inguinal hernia [K40.90] INVALID FOR*06/20/2018 More... Traumatic complete tear of left rotator cuff [S*INVALID FOR* More... Atherosclerosis of [place] artery of left lower *INVALID FOR* Prescriptions ordered this encounter Disp Refills Start End CLOPIDOGREL 75 MG TABLET 90 t* 3 08/19/2019 Route: ORAL Sig: Take 1 tablet by mouth once daily. Medications Discontinued During This Encounter clopidogrel (PLAVIX) 75 mg tablet 90 t* 3 07/30/2019 08/19/20 Route: ORAL Sig: Take 1 tablet by mouth once daily. Disc: Reason for discontinue is not on file. Encounter Status:Closed by ARON MENA MD on 08/19/19 allied health on 01-09-06 ALLIED HNO ID: [id number] Normal 08-19-2019 [facility] Author: Layla LantiguaRt) [facility] Service: ? ([id number]) Author Type: Child Psychologist Type: Allied Health Filed: 08/19/2019 12:35 PM Note Text: RADIOLOGY SERVICE PROGRESS NOTE SERVICE DATE: 08/19/2019 SERVICE TIME: 12:33 PM PATIENT IDENTITY VERIFICATION COMPLETED USING TWO (2) [address] IDENTIFIERS: Name, Date of and Medical Record Number v erified for blood component administration. PATIENT GENDER DATA: .male ALLERGIES: Reviewed and unchanged MEDICATIONS REVIEWED: Not applicable PATIENT RELEVANT IMPLANT DATA REVIEWED: Not Applicable CREATININE: Creatinine Date Value Ref Range Status 08/17/2019 1.03 0.73 - 1.22 mg/dL Final 07/30/2019 0.76 0.73 - 1.22 mg/dL Final 06/03/2018 1.15 0.73 - 1.22 mg/dL Final eGFR-All Other Races Date Value Ref Range Status 08/17/2019 >60 . Final Comment: eGFR (Estimated GFR) Units of measure: mL/min/1.73 meters sq uared eGFR is derived from the reexpressed MDRD Study equation i ng the following parameters: serum creatinine, age, gender and race. The crea tinine assay has been calibrated to be traceable to IDMS. An eGFR <60 mL/min/1.73m2 for >3 months is consistent with c hronic kidney disease. Refer to KDOQI guidelines for clinical interpretati on. In patients with unstable renal function, e.g. those with ac inaja kidney injury, the eGFR may not accurately reflect actual GFR. eGFR- Date Value Ref Range Status 08/17/2019 >60 Final P.O.C.T. RESULTS: N/A August 19, [address] PERFORMED: No IV SITE: Ambulatory: A peripheral IV was started in the [facility] t antecubital site with a Angio cath: 22 gauge. POST EXAM PIV STATUS: Discontinued PROCEDURE TYPE: NM Stress: 12.3mCi [id number] was adminis tered IV for Rest Imaging at 08:50 by Layla Singh. 32.5 mCi [id number] oview was administered IV for Stress Imaging at 10:20 by Layla chavez. PATIENT DISCHARGED TO: Ambulatory patient, left NM [facility] area. A Diagnostic radioactive procedure has taken place, with no further precautions necessary other than routine body substance prec autions. More information regarding radiation safety can be found using [facility] link: [email or web address] SIGNATURE: RT Agustin PATIENT NAME: Tye Vazquez DATE: August 19, 2019 TIME: 12:33 PM PAGER/CONTACT #: bennie on 2019-08-18 CNPN Telephone ([facility]ME) Normal 08-18-2019 [facility] TYE VAZQUEZ ([id number]) 1940 M ([id number]) Date Time Provider Department 08/18/19 LYNNETTE AUGUSTIN (RN) [facility] During your visit today, we recorded the following informati on about you: Lynnette Augustin RN, RN 08/18/2019 1:00 PM Signed Spoke with patient regarding reminder for stress test tomorr ow and given instructions. Allergies As of Date: 08/18/2019 (No Known Allergies) Date Reviewed: 08/17/2019 Reviewed by: Liv Molina LPN - Fully Assessed Reason for Visit: Reminder Call [[id number]] Prescriptions as of 08/18/2019 Sig: TRAMADOL 50 MG TABLET Take 1 tablet by mouth every * CLOPIDOGREL 75 MG TABLET Take 1 tablet by mouth once d* OMEPRAZOLE 20 MG CAPSULE,ROCK* Take 1 capsule by mouth once * CYCLOBENZAPRINE 10 MG TABLET Take 1 tablet by mouth at bed* CILOSTAZOL 50 MG TABLET Take 1 tablet by mouth twice * AMLODIPINE 10 MG TABLET Take 1 tablet by mouth once d* GABAPENTIN 300 MG CAPSULE 1 capsule in the morning. Co* LISINOPRIL 20 MG TABLET Take 1 tablet by mouth every * LISINOPRIL 20 MG-HYDROCHLOROT* Take 1 tablet by mouth every * MELOXICAM 15 MG TABLET Take 1 tablet by mouth once d* METOPROLOL TARTRATE 50 MG TAB* Take 1 tablet by mouth twice * ATORVASTATIN 10 MG TABLET Take 1 tablet by mouth once d* TRIAMCINOLONE ACETONIDE 0.5 %* Apply 1 application to affect * ASPIRIN 81 MG TABLET,DELAYED * Take 1 tablet by mouth once d * Problem List As Of Date 08/18/2019 Noted Resolved Dermatophytosis of foot [B35.3] INVALID FOR*06/14/2017 ESOPHAGEAL REFLUX [K21.9] INVALID FOR* HYPERTENSION NOS [I10] INVALID FOR*03/29/2014 More... MIXED HYPERLIPIDEMIA [E78.2] INVALID FOR* More... Ganglion of tendon sheath [M67.40] INVALID FOR*11/07/2016 Unspecified disorder of prostate [N42.9] INVALID FOR* 014 Inguinal hernia without mention of obstruction *INVALID FOR* 11/07/2016 Umbilical hernia without mention of obstruction*INVALID FOR* 11/07/2016 Rotator cuff (capsule) sprain [S43.429A] INVALID FOR* 017 Malignant neoplasm of prostate (HCC) [C61] INVALID FOR*11/07 More... Benign neoplasm of rectum and anal canal [D12.8*INVALID FOR* More... Tobacco use disorder [F17.200] INVALID FOR* More... Frequency of urination [R35.0] INVALID FOR*11/07/2016 Prostate cancer [C61] Diarrhea [R19.7] INVALID FOR*09/06/2014 Inguinal neuralgia [M79.2] INVALID FOR*11/07/2016 Rotator cuff impingement syndrome of right shou*INVALID FOR* Medicare annual wellness visit, subsequent [Z00*INVALID FOR* 06/20/2018 Right-sided low back pain with right-sided scia*INVALID FOR* 05/15/2016 Essential hypertension [I10] INVALID FOR* DDD (degenerative disc disease), lumbar [M51.36]INVALID FOR* Clostridium difficile colitis [A04.72] INVALID FOR* 8 Inguinal hernia [K40.90] INVALID FOR*06/20/2018 More... Traumatic complete tear of left rotator cuff [S*INVALID FOR* More... Atherosclerosis of [place] artery of left lower *INVALID FOR* Encounter Status:Closed by LYNNETTE AUGUSTIN on 08/18/19 psa, diagnostic on 2019-08-17 PSA, Diagnostic <0.03 0.00-2.59 Normal 08-17-2019 [facility] ([id number]) Comment: Result Comment: Total PSA te st methodology used is the Electrochemiluminescence Immunoassay. For an individual patient, t he significance of a PSA level should be interpreted in a broad clinical context, including age, race, family history, digital rectal exam, prostate size, results of prior te sting (prostate biopsy, free PSA, PCA3), and use of 5-alpha reductase inhibitors. Considering the high inciden ce of asymptomatic cancer in the general population that may not pose an ultimate risk to a patient, the decision to recommend urological evaluation or prostate biopsy should be individualized after con sideration of all these factors. REFERENCE: Beatris Lynch M.D., M.P. H., Jeff Tracy M.D., Ph.D., Martin Viera M.D., Ele Prince, M.P.H., Juliane Persaud Sc.D. Effect of Verification Bias on Screening for Prostate Cancer by Measurement of Prostatic Specific Antigen. N Engl J Med 2003,349:335-42. Performed By: #### PSA ####[facility] [id number] [place], [place] [phone] progress on 2019-08 PROGRESS HNO ID: [id number] Normal 08-17-2019 [facility] Author: Talon Bolaños [place] Service: ? ([id number]) Author Type: Physician Type: Progress Notes Filed: 08/17/2019 2:02 PM Note Text: This note was created using [employer]. Subjective Tye Vazquez is a 79 year old male. 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 Patient complains of continuous and daily from the left knee distally to the left foot. Pain is described as needles and is worse wit h walking. Pain is rated 9 out of 10 at its worse. Previous treatments have included cilostazol. He was evaluated by vascular surgery and is sche duled for surgery . He declined pain management. He was taking gabapentin. He was noted to have temperature elevation today, but he den ied symptoms of infection. 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 omeprazole (PRILOSEC) 20 mg capsule Take 1 capsule by mouth once daily. cyclobenzaprine (FLEXERIL) 10 mg tablet Take 1 tablet by fermín th at bedtime as needed for Muscle Spasm. cilostazol (PLETAL) 50 mg tablet Take 1 tablet by mouth twic e daily. amLODIPine (NORVASC) 10 mg tablet Take 1 tablet by mouth onc e daily. gabapentin (NEURONTIN) 300 mg capsule 1 capsule in the morni ng. Continue 2 capsules at bedtime. lisinopril (ZESTRIL, PRINIVIL) 20 mg tablet Take 1 tablet by mouth every evening. lisinopril-hydrochlorothiazide (PRINZIDE,ZESTORETIC) 20-12.5 mg per tablet Take 1 tablet by mouth every morning. meloxicam (MOBIC) 15 mg tablet Take 1 tablet by mouth once d aily as needed (joint pains.). Take with food. metoprolol tartrate, short acting, (LOPRESSOR) 50 mg tablet Take 1 tablet by mouth twice daily. atorvastatin (LIPITOR) 10 mg tablet Take 1 tablet by mouth o nce daily. triamcinolone acetonide (KENALOG) 0.5 % cream Apply 1 applic ation to affected area twice daily. For rash/itching. Apply sparingly . Avoid face/skin fold. potassium chloride ER (K-DUR, KLOR-CON) 20 mEq tablet TAKE 1 TABLET EVERY DAY (Patient not taking: Reported on 08/17/2019) aspirin, enteric coated (ASPIRIN, ENTERIC COATED) 81 mg EC t ablet Take 1 tablet by mouth once daily. No current facility-administered medications for this visit. Review of Systems Constitutional: Negative for chills, diaphoresis and fever. HENT: Negative for congestion and sore throat. Respiratory: Negative. Cardiovascular: Negative. Gastrointestinal: Negative. Genitourinary: Negative. Skin: Negative for rash and wound. Objective BP 136/70 (BP Site: Left Arm, BP Position: Sitting, BP Cuff Size: Regular Adult) Pulse 60 Temp 36.6 ?C (97.8 ?F) (Left Tympanic) Resp 20 Wt 71.2 kg (157 lb) BMI 24.59 kg/m? Physical Exam Constitutional: He appears well-nourished. HENT: Nose: Nose normal. Cardiovascular: Normal rate and regular rhythm. Exam reveals no gallop. No murmur heard. Pulmonary/Chest: Breath sounds normal. He has no wheezes. He has no rales. Abdominal: Soft. There is no tenderness. Musculoskeletal: He exhibits no edema. Assessment and Plan 1. 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 Avoid taking with cyclobenzaprine to minimize interaction ri sk. Short term prescription only for now. He is scheduled for surgery. - TRAMADOL 50 MG TABLET 2. Essential hypertension - ICD9: 401.9, ICD10: I10 - fair control - Continue current medication(s) - Goal of BP <130/80 3. Prostate cancer (HCC) - ICD9: 185, ICD10: C61 Recheck marker. - PSA/PROSTSPECAG DIAG 4. Mixed hyperlipidemia - ICD9: 272.2, ICD10: E78.2 - good control - Continue current medication. 5. Need for vaccination - ICD9: V05.9, ICD10: Z23 - INFLUENZA SEASONAL HIGH DOSE AGE 65+ Talon Bolaños MD cnov on 2019-08-17 CNOV Office Visit (INTMWS) Normal 08-17-20 [facility] TYE VAZQUEZ ([id number]) 1940 M [place] Date Time Provider Department ([id number]) 08/17/19 11:00 AM TALON BOLAÑOS INTMWS During your visit today, we recorded the following informati on about you: Temperature Pulse Respiration Blood pressure 97.8 degrees 60/minute 20/minute 136/70 Weight 71.2 kg Talon Bolaños MD 08/17/2019 2:02 PM Signed This note was created using [employer]. Subjective Tye Vazquez is a 79 year old male. 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 Patient complains of continuous and daily from the lef t knee distally to the left foot. Pain is described as needles and is worse with wa lking. Pain is rated 9 out of 10 at its worse. Previous treatme nts have included cilostazol. He was evaluated by vascular surgery and is sche duled for surgery . He declined pain management. He was taking gabapentin. He was noted to have temperature elevation today, but he d enied symptoms of infection. 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 omeprazole (PRILOSEC) 20 mg capsule Take 1 capsule by mouth once daily. cyclobenzaprine (FLEXERIL) 10 mg tablet Take 1 tablet by mouth at bedtime as needed for Muscle Spasm. cilostazol (PLETAL) 50 mg tablet Take 1 tablet by mouth twic e daily. amLODIPine (NORVASC) 10 mg tablet Take 1 tablet by mouth onc e daily. gabapentin (NEURONTIN) 300 mg capsule 1 capsule in the morni ng. Continue 2 capsules at bedtime. lisinopril (ZESTRIL, PRINIVIL) 20 mg tablet Take 1 tablet by mouth every evening. lisinopril-hydrochlorothiazi de (PRINZIDE,ZESTORETIC) 20-12.5 mg per tablet Take 1 tablet by mouth every morning. meloxicam (MOBIC) 15 mg tablet Take 1 tablet by mouth once d aily as needed (joint pains.). Take with food. metoprolol tartrate, short acting, (LOPRESSOR) 50 mg t ablet Take 1 tablet by mouth twice daily. atorvastatin (LIPITOR) 10 mg tablet Take 1 tablet by mouth o nce daily. triamcinolone acetonide (KENALOG) 0.5 % cream Ap ply 1 application to affected area twice daily. For rash/itching. Apply sparingly. Avoid f carson/skin fold. potassium chloride ER (K-DUR, KLOR-CON) 20 mEq t ablet TAKE 1 TABLET EVERY DAY (Patient not taking: Reported on 08/17/2019) aspirin, enteric coated (ASP IRIN, ENTERIC COATED) 81 mg EC tablet Take 1 tablet by mouth once daily. No current facility-administered medications for this visit. Review of Systems Constitutional: Negative for chills, diaphoresis and fever. HENT: Negative for congestion and sore throat. Respiratory: Negative. Cardiovascular: Negative. Gastrointestinal: Negative. Genitourinary: Negative. Skin: Negative for rash and wound. Objective BP 136/70 (BP Site: Left Arm, BP Position: Sitting, BP Cuff Size: Regular Adult) Pulse 60 Temp 36.6 ?C (97.8 ?F) (Left Tympanic) Resp 20 Wt 71.2 kg (157 lb) BMI 24.59 kg/m? Physical Exam Constitutional: He appears well-nourished. HENT: Nose: Nose normal. Cardiovascular: Normal rate and regular rhythm. Exam reveals no gallop. No murmur heard. Pulmonary/Chest: Breath sounds normal. He has no wheezes. He has no rales. Abdominal: Soft. There is no tenderness. Musculoskeletal: He exhibits no edema. Assessment and Plan 1. Atherosclerosis of [place] artery of left lowe r extremity with intermittent claudication (HCC) - ICD9: 440.21, ICD10: I70.212 (primary d iagnosis) Discussed medication dosage, usage, goals of the rapy, and side effects. Avoid taking with cyclobenzaprine to minimize interaction risk. Sh ort term prescription only for now. He is scheduled for surgery. - TRAMADOL 50 MG TABLET 2. Essential hypertension - ICD9: 401.9, ICD10: I10 - fair control - Continue current medication(s) - Goal of BP <130/80 3. Prostate cancer (HCC) - ICD9: 185, ICD10: C61 Recheck marker. - PSA/PROSTSPECAG DIAG 4. Mixed hyperlipidemia - ICD9: 272.2, ICD10: E78.2 - good control - Continue current medication. 5. Need for vaccination - ICD9: V05.9, ICD10: Z23 - INFLUENZA SEASONAL HIGH DOSE AGE 65+ Talon Bolaños MD Referring Provider: TALON BOLAÑOS [[id number]] Allergies As of Date: 08/17/2019 (No Known Allergies) Date Reviewed: 08/17/2019 Reviewed by: Liv Molina LPN - Fully Assessed Reason for Visit: F/U 6 Month [444] Imm/Inj [58] Cmt: Flu Vaccine Reason For Visit History Recorded Primary Visit Diagnosis:Atherosclerosis of [place] artery of left lower extremity with intermittent claudication (HCC) [I70.212] Other Visit Diagnoses:Essential hypertension [I10] Prostate cancer (HCC) [C61] Mixed hyperlipidemia [E78.2] Need for vaccination [Z23] Order(s):traMADol (ULTRAM) 50 mg tabletT avi 1 tablet by mouth every 8 hours as needed for Pain for up to 7 days.Disp: 21 tabletRfl: 0 PSA/PROSTSPECAG DIAG [SQPSA] Order #: [id number] FUTURE INFLUENZA SEASONAL HIGH DOSE AGE 65+ [[id number]] Order #: [id number] Prescriptions as of 08/17/2019 Sig: CLOPIDOGREL 75 MG TABLET Take 1 tablet by mouth once d* OMEPRAZOLE 20 MG CAPSULE,ROCK* Take 1 capsule by mouth once * CYCLOBENZAPRINE 10 MG TABLET Take 1 tablet by mouth at bed* CILOSTAZOL 50 MG TABLET Take 1 tablet by mouth twice * AMLODIPINE 10 MG TABLET Take 1 tablet by mouth once d* GABAPENTIN 300 MG CAPSULE 1 capsule in the morning. Co* LISINOPRIL 20 MG TABLET Take 1 tablet by mouth every * LISINOPRIL 20 MG-HYDROCHLOROT* Take 1 tablet by mouth every * MELOXICAM 15 MG TABLET Take 1 tablet by mouth once d* METOPROLOL TARTRATE 50 MG TAB* Take 1 tablet by mouth twice * ATORVASTATIN 10 MG TABLET Take 1 tablet by mouth once d* TRIAMCINOLONE ACETONIDE 0.5 %* Apply 1 application to affect * TRAMADOL 50 MG TABLET Take 1 tablet by mouth every * ASPIRIN 81 MG TABLET,DELAYED * Take 1 tablet by mouth once d * Problem List As Of Date 08/17/2019 Noted Resolved Dermatophytosis of foot [B35.3] INVALID FOR*06/14/2017 ESOPHAGEAL REFLUX [K21.9] INVALID FOR* HYPERTENSION NOS [I10] INVALID FOR*03/29/2014 More... MIXED HYPERLIPIDEMIA [E78.2] INVALID FOR* More... Ganglion of tendon sheath [M67.40] INVALID FOR*11/07/2016 Unspecified disorder of prostate [N42.9] INVALID FOR* 014 Inguinal hernia without mention of obstruction *INVALID FOR* 11/07/2016 Umbilical hernia without mention of obstruction*INVALID FOR* 11/07/2016 Rotator cuff (capsule) sprain [S43.429A] INVALID FOR* 017 Malignant neoplasm of prostate (HCC) [C61] INVALID FOR*11/07 More... Benign neoplasm of rectum and anal canal [D12.8*INVALID FOR* More... Tobacco use disorder [F17.200] INVALID FOR* More... Frequency of urination [R35.0] INVALID FOR*11/07/2016 Prostate cancer [C61] Diarrhea [R19.7] INVALID FOR*09/06/2014 Inguinal neuralgia [M79.2] INVALID FOR*11/07/2016 Rotator cuff impingement syndrome of right shou*INVALID FOR* Medicare annual wellness visit, subsequent [Z00*INVALID FOR* 06/20/2018 Right-sided low back pain with right-sided scia*INVALID FOR* 05/15/2016 Essential hypertension [I10] INVALID FOR* DDD (degenerative disc disease), lumbar [M51.36]INVALID FOR* Clostridium difficile colitis [A04.72] INVALID FOR* 8 Inguinal hernia [K40.90] INVALID FOR*06/20/2018 More... Traumatic complete tear of left rotator cuff [S*INVALID FOR* More... Atherosclerosis of [place] artery of left lower *INVALID FOR* Prescriptions ordered this encounter Disp Refills Start End TRAMADOL 50 MG TABLET 21 t* 0 08/17/2019 08/24/2019 Class: Print RX Route: ORAL Sig: Take 1 tablet by mouth every 8 hour s as needed for Pain for up to 7 days. Medications Discontinued During This Encounter iv contrast (will be provided with r* 1 Ea* 0 07/30/201908/17/2019 Class: In Office Sig: CTA ABD/PEL LE - No IV access, insert saline lock prior to the sedation, infusion, injection for imaging exam. Discontinue saline lock post exam. If Pt. has a central line or IVAD, may access for admi nistration according to line specific nursing protocol. Once exam is complete flush line and de-access according to line specific nursing protocol in the CT contrast administration guidelines link. Disc: Reason for discontinue is not on file. potassium chloride ER (HUY FLORIANC* 90 t* 3 12/04/201708/17 Sig: TAKE 1 TABLET EVERY DAY Patient not taking: Reported on 08/17/2019 Disc: Reason for discontinue is not on file. Disposition: Return in 3 months (on 11/17/2019), or if symptom s worsen or fail to improve. Follow-up and Disposition History Recorded Encounter Status:Closed by TALON BOLAÑOS MD on 08/17/19 cbc on 2019-08-17 Absolute nRBC <0.01 <0.01 Normal 08-17-2019 [facility] [facility] ([id number]) Comment: Performed By: #### CBC, BMP ####[facility] [address] [place], [place] [id number]- [phone] Erythrocyte distribution 12.9 11.5-15.0 % Normal 08-17 [facility] width (RBC) [Ratio] [place] ([id number]) Comment: Performed By: #### CBC, BMP ####[facility] [address] [place], [place] [phone]- [phone] Hematocrit (Bld) [Volume 46.8 39.0-51.0 % Normal 08-17 [facility] fraction] [place] ([id number]) Comment: Performed By: #### CBC, BMP ####[place] [address] [place], [place] [phone]- [phone] Hemoglobin (Bld) 16.1 13.0-17.0 g/dL Normal 08-17-2019 [facility] [Mass/Vol] [place] ([id number]) Comment: Performed By: #### CBC, BMP ####[place] [address] [place], [place] [phone]- [phone] MCH (RBC) [Entitic mass] 33.3 26.0-34.0 pG Normal 08-17 [facility] ([id number]) Comment: Performed By: #### CBC, BMP ####[address], [place] [phone]- [phone] MCHC (RBC) [Mass/Vol] 34.4 30.5-36.0 g/dL Normal 08-17-20 19 [facility] ([id number]) Comment: Performed By: #### CBC, BMP ####[address] [phone]- [phone] MCV (RBC) [Entitic vol] 96.9 80.0-100.0 fL Normal 08-17 [facility] ([id number]) Comment: Performed By: #### CBC, BMP ####[place] [address], [place] [phone]- [phone] Platelet mean volume 10.9 9.0-12.7 fL Normal 9 [facility] (Bld) [Entitic vol] [place] ([id number]) Comment: Performed By: #### CBC, BMP ####[place] [address] [place], [place] [phone]- [phone] Platelets (Bld) [#/Vol] 240 150-400 k/uL Normal 2018 [facility] ([id number]) Comment: Performed By: #### CBC, BMP ####[place] [address] [place], [place] [phone] RBC (Bld) [#/Vol] 4.83 4.20-6.00 m/uL Normal 08-17-2019 [facility] ([id number]) Comment: Performed By: #### CBC, BMP ####[place] [address] [place], [place] [phone]- [phone] WBC (Bld) [#/Vol] 6.54 3.70-11.00 k/uL Normal 08-17-2019 [facility] ([id number]) Comment: Performed By: #### CBC, BMP ####[place] [address] [place], [place] [phone]- [phone] basic metabolic panl on 2019-08-17 Anion gap [Moles/Vol] 12 9-18 mmol/L Normal 08-17-20 19 [facility] ([id number]) Comment: Performed By: #### CBC, BMP ####[place] [address], [place] [phone]- [phone] Calcium [Mass/Vol] 9.9 8.5-10.2 mg/dL Normal 08-17-2019 [facility] ([id number]) Comment: Performed By: #### CBC, BMP ####[place] [address] [place], [place] [phone]- [phone] Chloride [Moles/Vol] 99 97-105 mmol/L Normal 9 [facility] ([id number]) Comment: Performed By: #### CBC, BMP ####[place] [address] [place], [place] [phone]- [phone] CO2 [Moles/Vol] 26 22-30 mmol/L Normal 08-17-2019 [facility] ([id number]) Comment: Performed By: #### CBC, BMP ####[place] [address] [place], [place] [phone]- [phone] Creatinine [Mass/Vol] 1.03 0.73-1.22 mg/dL Normal 08-17-20 19 [facility] ([id number]) Comment: Performed By: #### SARITA, MAYA ####[facility] [place], [place] [phone]- [phone] eGFR- Amer. >60 Normal 08-17-2019 [facility] ([id number]) Comment: Performed By: #### SARITA, BMP ####[facility] [place], [place] [phone]- [phone] GFR/1.73 sq M predicted >60 mL/min/{1.73_m2} Normal 08-17-2019 [facility] among non-blacks MDRD [place] ([id number]) (S/P/Bld) [Vol rate/Area] Comment: Result Comment: eGFR (Estima carlita GFR) Units of measure: mL/min/1.73 meters squared eGFR is derived from the ree xpressed MDRD Study equation using the following parameters: serum creatinine, age, gender and race. The creatinine assay has been calibrated to be traceable to IDMS. An eGFR <60 mL/min/1.73m2 fo r >3 months is consistent with chronic kidney disease. Refer to KDOQI guidelines for clinical interpretation. In patients with unstable re nal function, e.g. those with acute kidney injury, the eGFR may not accurately reflect actual GFR. Performed By: #### CBC, MAYA ####[facility] [place], [place] [phone] Glucose [Mass/Vol] 75 74-99 mg/dL Normal 08-17-2019 [facility] ([id number]) Comment: Result Comment: The [place] Diabetes [employer] (ADA) provides guidance for cutoff values for fasting glucose and random glucose. The ADA defines fasting as no caloric intake for at least 8 hours. Fas ting plasma glucose results between 100 to 125 mg/dL indicate increased risk for diabetes (prediabetes). Fasting plasma glucose resul ts greater than or equal to 126 mg/dL meet the criteria for diagnosis of diabetes. In the absence of unequivocal hyperglycemia, results should be confirmed by repeat testing. In a patient with classic s ymptoms of hyperglycemia or hyperglycemic crisis, random plasma glucose results greater than or equal to 200 mg/dL meet the criteria for diagnosis of diabetes. Reference: Standards of [facility] [place] [facility] in Diabetes 2016, [place] [employer] Association. Diabetes Care. 2016.39(Suppl 1). Performed By: #### CBC, BMP ####[place] [address] [place], [place] [phone] Potassium [Moles/Vol] 3.8 3.7-5.1 mmol/L Normal 08-17-20 [facility] ([id number]) Comment: Performed By: #### CBC, BMP ####[address] [phone] Sodium [Moles/Vol] 137 136-144 mmol/L Normal 08-17-2019 [facility] ([id number]) Comment: Performed By: #### CBC, BMP ####[address] [id number] [phone] Urea nitrogen [Mass/Vol] 18 9-24 mg/dL Normal 08-17 [facility] ([id number]) Comment: Performed By: #### CBC, BMP ####[address] [id number] [phone] cnptoutreach on 201 06-23-22 CNPTOUTREACH Patient Outreach (FAMPST) Normal 1 [place] TYE Carey ([id number]) 1940 [address] [place] Date Time Provider Department ([id number]) 08/04/19 TALON BOLAÑOS FAMPST During your visit today, we recorded the following informati on about you: Allergies As of Date: 08/04/2019 (No Known Allergies) Date Reviewed: 07/30/2019 Reviewed by: Anuradha LantiguaRn) EMILIANO Corrales - Fully Assessed Visit Diagnoses:Essential hypertension [I10] Medication management [Z79.899] Order(s):BASIC METABOLIC PNL [SQBMP] Order #: [id number] FUT URE CBC [SQCBC] Order #: [id number] FUTURE Prescriptions as of 08/04/2019 Sig: CLOPIDOGREL 75 MG TABLET Take 1 tablet by mouth once d* X IV CONTRAST (RADIOLOGY PROCED* CTA ABD/PEL LE - No IV acce ss* OMEPRAZOLE 20 MG CAPSULE,ROCK* Take 1 capsule by mouth once * CYCLOBENZAPRINE 10 MG TABLET Take 1 tablet by mouth at bed* CILOSTAZOL 50 MG TABLET Take 1 tablet by mouth twice * AMLODIPINE 10 MG TABLET Take 1 tablet by mouth once d* GABAPENTIN 300 MG CAPSULE 1 capsule in the morning. Co* LISINOPRIL 20 MG TABLET Take 1 tablet by mouth every * LISINOPRIL 20 MG-HYDROCHLOROT* Take 1 tablet by mouth every * MELOXICAM 15 MG TABLET Take 1 tablet by mouth once d* METOPROLOL TARTRATE 50 MG TAB* Take 1 tablet by mouth twice * ATORVASTATIN 10 MG TABLET Take 1 tablet by mouth once d* TRIAMCINOLONE ACETONIDE 0.5 %* Apply 1 application to affect * X POTASSIUM CHLORIDE ER 20 MEQ * TAKE 1 TABLET EVERY DAY Patient not taking: Reported on 08/17/2019 ASPIRIN 81 MG TABLET,DELAYED * Take 1 tablet by mouth once d * Problem List As Of Date 08/04/2019 Noted Resolved Dermatophytosis of foot [B35.3] INVALID FOR*06/14/2017 ESOPHAGEAL REFLUX [K21.9] INVALID FOR* HYPERTENSION NOS [I10] INVALID FOR*03/29/2014 More... MIXED HYPERLIPIDEMIA [E78.2] INVALID FOR* More... Ganglion of tendon sheath [M67.40] INVALID FOR*11/07/2016 Unspecified disorder of prostate [N42.9] INVALID FOR* 014 Inguinal hernia without mention of obstruction *INVALID FOR* 11/07/2016 Umbilical hernia without mention of obstruction*INVALID FOR* 11/07/2016 Rotator cuff (capsule) sprain [S43.429A] INVALID FOR* 017 Malignant neoplasm of prostate (HCC) [C61] INVALID FOR*11/07 More... Benign neoplasm of rectum and anal canal [D12.8*INVALID FOR* More... Tobacco use disorder [F17.200] INVALID FOR* More... Frequency of urination [R35.0] INVALID FOR*11/07/2016 Prostate cancer [C61] Diarrhea [R19.7] INVALID FOR*09/06/2014 Inguinal neuralgia [M79.2] INVALID FOR*11/07/2016 Rotator cuff impingement syndrome of right shou*INVALID FOR* Medicare annual wellness visit, subsequent [Z00*INVALID FOR* 06/20/2018 Right-sided low back pain with right-sided scia*INVALID FOR* 05/15/2016 Essential hypertension [I10] INVALID FOR* DDD (degenerative disc disease), lumbar [M51.36]INVALID FOR* Clostridium difficile colitis [A04.72] INVALID FOR* 8 Inguinal hernia [K40.90] INVALID FOR*06/20/2018 More... Traumatic complete tear of left rotator cuff [S*INVALID FOR* More... Atherosclerosis of [place] artery of left lower *INVALID FOR* Encounter Status:Closed by EPIC, PRODUSER on 08/19/19 progress on 2019-07 PROGRESS HNO ID: [id number] Normal 07-30-2019 [facility] Author: Aron Mena [place] Service: ? ([id number]) Author Type: Physician Type: Progress Notes Filed: 07/30/2019 12:20 PM Note Text: [facility] OUTPATIENT VISIT DATE July 30, 2019 OUTPATIENT VISIT TYPE ESTABLISHED PRIMARY CARE PHYSICIAN: Talon Bolaños MD [address] [place] [address] REFERRING PHYSICIAN Aron Mena MD 0 [facility] [address] CHIEF COMPLAINT: Patient presents with: Follow Up: Test Results HISTORY OF PRESENT ILLNESS: Tye Vazquez was referred for consultation by Dr. Remedios kuhn. Opinions and recommendations in this consultation will be transmitted back to the referring physician by [facility] notes or via mail. ? Mr. Vazquez is a 79 year old male PMH DDD who is seen today f or follow up evaluation for PAD, and leg claudication symptoms. He as well has been having numbness in the bilateral feet ho wever worse on the left, most prominently affecting the great toe. Denies any ulceration or wounds. 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 In May 2018 underwent spine surgery which resolved many o f his lower extremity complaints. Subsequently had a fall and has result ed in shoulder injury as well as new onset of left leg pain. ? Last SAMANTHA 09/2018 1 bilaterally. Smokes few cig/day, had smoked 15 pack years. PAST MEDICAL HISTORY Diagnosis Date - Benign neoplasm of colon - Benign neoplasm of rectum and anal canal - Clostridium difficile colitis 05/14/2017 - DDD (degenerative disc disease), lumbar 11/07/2016 - Diarrhea - Esophageal reflux 08/29/2006 - Essential hypertension, benign - Inguinal hernia without mention of obstruction or gangrene , unilateral or unspecified, (not specified as recurrent) 10/11/2008 - Mixed hyperlipidemia 09/02/2006 - Nonspecific (abnormal) findings on radiological and other examination of abdominal area, including retroperitoneum - Prostate cancer (HCC) - 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 - Umbilical hernia without mention of obstruction or gangren e 10/11/2008 PAST SURGICAL HISTORY Procedure Laterality Date - COLONOSCOP W/ OR W/O [facility] SPEC 04/26/2014 Colonoscopy - COLONOSCOP W/ OR W/O [facility] SPEC 05/07/16 Colonoscopy - COLONOSCOPY AND POLYPECTOMY 05/15/10 tubular adenomas removed- [place] - LAMINECTOMY,>2 SGMT,LUMBAR 06/11/2018 [facility] - PAST SURGICAL HISTORY OF 2001 bilat cataracts, retina - RECONSTRUCT PROX HUMERAL IMPLANT Right 1993 Arthroplasty, shoulder right x 2. 1991, 1993. - REPAIR ING HERNIA,5+Y/O,REDUCIBL 11/26/2008 left - REPAIR ING HERNIA,5+Y/O,REDUCIBL 01/20/2018 Hernia repair, inguinal right, indirect w/medium mesh plug W [facility] - REPAIR UMBILICAL ALBERT,5+Y/O,REDUC 11/26/2008 - SEED IMPLANT 05/2010 for prostate cancer - SIGMOIDOSCOPY FLEX DIAG 12/05/10 SOCIAL HISTORY Social History Tobacco Use - Smoking status: Current Every Day Smoker Packs/day: 0.50 Years: 30.00 Pack years: 15.00 Types: Cigarettes - Smokeless tobacco: Never Used Substance Use Topics - Alcohol use: Yes Alcohol/week: 7.5 standard drinks Types: 3 Glasses of Wine (5oz) per week Comment: 1/2 oz at night - Drug use: No FAMILY HISTORY Problem Relation Age of Onset - Diabetes Brother skin cancer - Prostate Cancer Brother - Stroke Mother - Blood Disease Father - Coronary Artery Disease Brother - other (Other) Brother paraplegia ALLERGIES: ALLERGIES No Known Allergies MEDICATIONS: omeprazole (PRILOSEC) 20 mg capsule Take 1 capsule by mouth once daily. cyclobenzaprine (FLEXERIL) 10 mg tablet Take 1 tablet by fermín th at bedtime as needed for Muscle Spasm. cilostazol (PLETAL) 50 mg tablet Take 1 tablet by mouth twic e daily. amLODIPine (NORVASC) 10 mg tablet Take 1 tablet by mouth onc e daily. gabapentin (NEURONTIN) 300 mg capsule 1 capsule in the morni ng. Continue 2 capsules at bedtime. lisinopril (ZESTRIL, PRINIVIL) 20 mg tablet Take 1 tablet by mouth every evening. lisinopril-hydrochlorothiazide (PRINZIDE,ZESTORETIC) 20-12.5 mg per tablet Take 1 tablet by mouth every morning. meloxicam (MOBIC) 15 mg tablet Take 1 tablet by mouth once d aily as needed (joint pains.). Take with food. metoprolol tartrate, short acting, (LOPRESSOR) 50 mg tablet Take 1 tablet by mouth twice daily. atorvastatin (LIPITOR) 10 mg tablet Take 1 tablet by mouth o nce daily. triamcinolone acetonide (KENALOG) 0.5 % cream Apply 1 applic ation to affected area twice daily. For rash/itching. Apply sparingly . Avoid face/skin fold. potassium chloride ER (K-DUR, KLOR-CON) 20 mEq tablet TAKE 1 TABLET EVERY DAY aspirin, enteric coated (ASPIRIN, ENTERIC COATED) 81 mg EC t ablet Take 1 tablet by mouth once daily. iv contrast (will be provided with radiology test) CTA ABD/P EL LE - No IV access, insert saline lock prior to the sedation, infusion, injection for imaging exam. Discontinue saline lock post exam. If Pt. has a central line or IVAD, may access for administration according to [facility] nursing protocol. Once exam is complete flush line and de-access acc ording to line specific nursing protocol in the CT contrast administration guidelines link. clopidogrel (PLAVIX) 75 mg tablet Take 1 tablet by mouth onc e daily. REVIEW OF SYSTEMS: GENERAL: no acute distress All other ROS: negative I personally interviewed, confirmed and edited the above inf ormation as obtained by others. PHYSICAL EXAMINATION: BP 163/71 (BP Site: Right Arm, BP Position: Sitting, BP Cuff Size: Regular Adult) Pulse 67 Resp 18 Wt 71.5 kg (157 lb 11.2 oz) BMI 24.70 kg/m? General appearance: well nourished, alert and cooperative in dividual, in no acute distress. Neck: no JVD Pulmonary: Lungs clear to auscultation bilaterally. Coronary: regular rate Lower Extremities: Feet and toes warm Cap refill in toes < 2 sec Hair present on left foot Palp femoral pulses bilaterally Palp right DP pulse CARDIOVASCULAR MEDICINE TESTING: I have personally reviewed the SAMANTHA. DUS. IMPRESSION/PLAN: Mr. Vazquez is a 79 year old male with mixed neurogenic and a rterial claudication. CTA ordered to further assess distribution of arterial occlu sive disease. Referred for pain management. Start on plavix. Follow up with test results. ? Aron Mena MD cta abd/pel/lower ext w ivcon on 2019-07-30 CTA ABD/PEL/LOWER * * *Final Report* * * Normal 07-30-2019 [place] EXT W IVCON DATE OF EXAM: Jul 30 2019 6:27PM [facility] 0122 - CTA ABD/PEL/LOWER EXT W IVCON / 6070 ([id number]) PROCEDURE REASON: R09.89-Diminished pulses in lower extremit y * * * * Physician Interpretation * * * * CT ANGIOGRAM OF THE ABDOMEN, PELVIS, AND BILATERAL LOWER EXT REMITIES HISTORY: 79-year-old male with diminished lower extremity pulses. TECHNIQUE: High-resolution contrast-enhanced helical CT of t he abdomen, pelvis and both lower extremities was performed, timed to e arterial phase. 3-D processing was performed by the physician on an [facility] work station, with MIP and volume-rendering techniques. Tota l of 100 ml of Omnipaque 350 was injected IV during the examination. The study was performed without oral contrast. The patient tolerated the i njection without complications. Dose-Length Product (DLP): 454 mGy*cm. CT Dose Reduction Employed: Automated exposure control (AEC) RESULT: COMPARISON: No prior studies are available for comparison. VASCULAR: Images of the aorta demonstrate diffuse atherosclerotic becker ge and heavily calcified in the infrarenal segment without signific ant focal stenosis or aneurysm. Superior mesenteric artery demonstrates no significant focal stenosis. Inferior mesenteric artery demonstrates no significant focal stenosis. There is a single right renal artery. Right renal artery dem onstrates calcified plaques in the juxta ostial with no significant fo jarred stenosis. There is a single left renal artery. Left renal artery demon strates calcified plaques in the juxta ostial and proximal segment w ith no significant focal stenosis. RIGHT LEG: Right common iliac artery is heavily calcified without signi ficant focal stenosis or aneurysm. Right external iliac artery demonstrates scattered calcified plaques and tortuous without significant stenosis. Right internal iliac artery diffuse calcified plaques and pa tent. Right common femoral artery is heavily calcified without sig nificant focal stenosis.. Right profunda femoris artery heavy calcified particularly i n the trunk with moderate to high-grade ostial stenosis and then patent. Right superficial femoral artery is diffusely and heavily ca lcified but remains patent overall diffuse luminal narrowing in the dist al segment with multifocal predominantly mild and moderate stenosis.. Right popliteal artery diffusely calcified and patent with d iffuse progressive luminal narrowing distally. Right anterior tibial artery diffusely calcified and appears to be patent in the proximal calf and then occluded. Dorsalis pedis arter y probably is reconstituted.. Right tibioperoneal trunk with calcified plaques proximally causing at least moderate stenosis, widely patent distally and continue s with peroneal artery. Right posterior tibial artery high in origin in the poplitea l fossa, diffusely calcified and patent at the origin and then occlud ed.. Right peroneal artery in continuation of the tibioperoneal trunk a nd extremities patent into ankle. LEFT LEG: Left common iliac artery diffusely calcified without signifi cant stenosis or aneurysm. Left external iliac artery diffusely calcified and tortuous without significant focal stenosis. Left internal iliac artery diffusely calcified and patent. Left common femoral artery diffusely calcified without signi ficant focal stenosis.. Left profunda femoris artery diffusely calcified at the italia on with moderate to high-grade stenosis and then patent. Left superficial femoral artery diffusely calcified througho ut with multifocal predominantly mild and moderate stenosis in the d istal segment at least one high-grade stenosis in the adductor canal and a segmental occlusion at the transition to popliteal artery ([phone]). . Left popliteal artery diffusely calcified occluded in the P1 segment in continuation with SFA, then patent with diffuse moderate lum inal narrowing.. Left anterior tibial artery diffusely calcified and probably occluded beyond origin. Dorsalis pedis artery is not identified. Left tibioperoneal trunk diffusely calcified and attenuated but patent. Left posterior tibial artery diffusely calcified and occlude d. Left peroneal artery calcified plaques proximally with high- grade stenosis, diminutive but remains patent into ankle. NONVASCULAR FINDINGS: Lung bases: Band atelectasis/scarring. A partially calcified 4 mm nodule anterior right lower lobe on fissure (3/5). Liver: No focal lesions. Spleen: No focal lesions. Pancreas and biliary sytem: Pancreas demonstrates homogeneou s enhancement without discrete focal lesion. Gallbladder is not pathologic ally dilated, unremarkable per CT. Adrenal glands: No mass. Kidneys: Demonstrate symmetric enhancement without hydroneph rosis. 7 mm cortical hypodensity right renal lower pole, probably a cyst . Mesentery/Peritoneum: No mass or fluid collection. Retroperitoneum: No mass or fluid collection. Bowel: Limited evaluation due to lack of oral contrast. Thic kening at GE junction probably a sliding hiatal hernia. Small bowel loops and bowel demonstrate nonspecific appearance. Sigmoid diverticulosis. Lymph Nodes: No lymphadenopathy per CT criteria in abdomen o r pelvis. Pelvis: Brachytherapy seeds in the prostate. Bones: Advanced multilevel hypertrophic degenerative changes throughout the visualized spine without obvious compression fracture de formity. IMPRESSION: 1. DIFFUSE AORTIC ATHEROSCLEROTIC CHANGES PARTICULARLY IN TH E INFRARENAL SEGMENT WITHOUT SIGNIFICANT FOCAL STENOSIS OR ANEURYSM. 2. RIGHT LOWER EXTREMITY: NO SIGNIFICANT INFLOW LESION. SFA DIFFUSELY CALCIFIED WITH MULTIFOCAL PREDOMINANTLY MILD TO MODERATE JULIET ROWING DISTALLY. POPLITEAL ARTERY DIFFUSELY CALCIFIED AND NARROWED BUT PATENT. SINGLE-VESSEL RUNOFF VIA PERONEAL ARTERY. 3. LEFT LOWER EXTREMITY: NO SIGNIFICANT INFLOW LESION. SFA I S HEAVY CALCIFIED WITH MULTIFOCAL PREDOMINANTLY MODERATE STENOSIS IN THE DISTAL SEGMENT AND A SHORT SEGMENT OCCLUSION AT THE TRANSITION TO P OPLITEAL ARTERY (APPROXIMATELY 3 CM). POPLITEAL ARTERY PATENT BEYOND P1 SEGMENT BUT DIFFUSELY NARROWED. SINGLE VESSEL RUNOFF VIA A DIMINUTIV E PERONEAL ARTERY. 4. NONVASCULAR FINDINGS: PROBABLE RIGHT RENAL LOWER POLE CYS T ; PARTIALLY CALCIFIED GRANULOMA RIGHT LOWER LOBE; SIGMOID DIVERTICULOSIS . Chair: ERAN Transcribe Date/Time: Jul 31 2019 8:32A Dictated by : ENMANUEL PEÑA MD This examination was interpreted and the report reviewed and electronically signed by: ENMANUEL PEÑA MD on Jul 31 2019 9:05AM EST [id number] creatinine on 07-30 Creatinine [Mass/Vol] >60 Normal 07-30-20 [facility] ([id number]) Comment: Result Comment: eGFR (Estima carlita GFR) Units of measure: mL/min/1.73 meters squared eGFR is derived from the ree xpressed MDRD Study equation using the following parameters: serum creatinine, age, gender and race. The creatinine assay has been calibrated to be traceable to IDMS. An eGFR <60 mL/min/1.73m2 fo r >3 months is consistent with chronic kidney disease. Refer to KDOQI guidelines for clinical interpretation. In patients with unstable re nal function, e.g. those with acute kidney injury, the eGFR may not accurately reflect actual GFR. Performed By: #### CRET1 ### # [facility] [address] [place] [address] Creatinine [Mass/Vol] 0.76 0.73-1.22 mg/dL Normal 07-30-20 [facility] ([id number]) Comment: Performed By: #### CRET1 ### # [facility] [address] [place] [address] cnov on 2019-07-30 CNOV Office Visit (MARLOT) Normal 07-30-20 [place] [facility] TYE VAZQUEZ ([id number]) 1940 [address] [place] Date Time Provider Department ([id number]) 07/30/19 11:45 AM ARON MENA During your visit today, we recorded the following informati on about you: Pulse Respiration Blood pressure Weight 67/minute 18/minute 163/71 71.5 kg Aron Mena MD 07/30/2019 12:20 PM Signed [facility] OUTPATIENT VISIT DATE July 30, 2019 OUTPATIENT VISIT TYPE ESTABLISHED PRIMARY CARE PHYSICIAN: Talon Bolaños MD [address] [place] [address] REFERRING PHYSICIAN Aron Mena MD [address] [facility] [address] CHIEF COMPLAINT: Patient presents with: Follow Up: Test Results HISTORY OF PRESENT ILLNESS: Tye Vazquez was referred for consultation by Dr. Ruth phlilips. Opinions and recommendations in this consultation arlin l be transmitted back to the referring physician by Epic notes or via mail. ? Mr. Vazquez is a 79 year old male PMH DDD who is seen today f or follow up evaluation for PAD, and leg claudication symptoms. He as well has been having numbness in t he bilateral feet however worse on the left, most prominently affecting the great toe. Denies any ulceration or wounds. 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 In May 2018 underwent spine surgery which resolved many o f his lower extremity complaints. Subsequently had a fall and has result ed in shoulder injury as well as new onset of left leg pain. ? Last SAMANTHA 09/2018 1 bilaterally. Smokes few cig/day, had smoked 15 pack years. PAST MEDICAL HISTORY Diagnosis Date - Benign neoplasm of colon - Benign neoplasm of rectum and anal canal - Clostridium difficile colitis 05/14/2017 - DDD (degenerative disc disease), lumbar 11/07/2016 - Diarrhea - Esophageal reflux 08/29/2006 - Essential hypertension, benign - Inguinal hernia without mention of obstruction or gangre ne, unilateral or unspecified, (not specified as recurrent) 10/11/2008 - Mixed hyperlipidemia 09/02/2006 - Nonspecific (abnormal) findings on radiological and other examination of abdominal area, including retroperitoneum - Prostate cancer (HCC) - Rotator cuff impingement syndrome of right shoulder 015 - Snoring - Traumatic complete tear of left rotator cuff 11/03/2018 [facility]. - Umbilical hernia without mention of obstruction or gangren e 10/11/2008 PAST SURGICAL HISTORY Procedure Laterality Date - COLONOSCOP W/ OR W/O [facility] SPEC 04/26/2014 Colonoscopy - COLONOSCOP W/ OR W/O [facility] SPEC 05/07/16 Colonoscopy - COLONOSCOPY AND POLYPECTOMY 05/15/10 tubular adenomas removed- [place] - LAMINECTOMY,>2 [facility] bilat cataracts, retina - RECONSTRUCT PROX HUMERAL IMPLANT Right 1993 Arthroplasty, shoulder right x 2. 1991, 1993. - REPAIR ING HERNIA,5+Y/O,REDUCIBL 11/26/2008 left - REPAIR ING HERNIA,5+Y/O,REDUCIBL 01/20/2018 Hernia repair, inguinal right, indirect w/medium mesh plug [facility] - REPAIR UMBILICAL ALBERT,5+Y/O,REDUC 11/26/2008 - SEED IMPLANT 05/2010 for prostate cancer - SIGMOIDOSCOPY FLEX DIAG 12/05/10 SOCIAL HISTORY Social History Tobacco Use - Smoking status: Current Every Day Smoker Packs/day: 0.50 Years: 30.00 Pack years: 15.00 Types: Cigarettes - Smokeless tobacco: Never Used Substance Use Topics - Alcohol use: Yes Alcohol/week: 7.5 standard drinks Types: 3 Glasses of Wine (5oz) per week Comment: 1/2 oz at night - Drug use: No FAMILY HISTORY Problem Relation Age of Onset - Diabetes Brother skin cancer - Prostate Cancer Brother - Stroke Mother - Blood Disease Father - Coronary Artery Disease Brother - other (Other) Brother paraplegia ALLERGIES: ALLERGIES No Known Allergies MEDICATIONS: omeprazole (PRILOSEC) 20 mg capsule Take 1 capsule by mouth once daily. cyclobenzaprine (FLEXERIL) 10 mg tablet Take 1 tablet by mouth at bedtime as needed for Muscle Spasm. cilostazol (PLETAL) 50 mg tablet Take 1 tablet by mouth twic e daily. amLODIPine (NORVASC) 10 mg tablet Take 1 tablet by mouth onc e daily. gabapentin (NEURONTIN) 300 mg capsule 1 capsule in the morni ng. Continue 2 capsules at bedtime. lisinopril (ZESTRIL, PRINIVIL) 20 mg tablet Take 1 tablet by mouth every evening. lisinopril-hydrochlorothiazi de (PRINZIDE,ZESTORETIC) 20-12.5 mg per tablet Take 1 tablet by mouth every morning. meloxicam (MOBIC) 15 mg tablet Take 1 tablet by mouth once d aily as needed (joint pains.). Take with food. metoprolol tartrate, short acting, (LOPRESSOR) 50 mg t ablet Take 1 tablet by mouth twice daily. atorvastatin (LIPITOR) 10 mg tablet Take 1 tablet by mouth o nce daily. triamcinolone acetonide (KENALOG) 0.5 % cream Ap ply 1 application to affected area twice daily. For rash/itching. Apply sparingly. Avoid f carson/skin fold. potassium chloride ER (K-DUR, KLOR-CON) 20 mEq t ablet TAKE 1 TABLET EVERY DAY aspirin, enteric coated (ASP IRIN, ENTERIC COATED) 81 mg EC tablet Take 1 tablet by mouth once daily. iv contrast (will be provided with radiology test) CTA ABD/P EL LE - No IV access, insert saline lock prior to the sedation, infusion, injection for imaging exam. Discontinue saline lock post exam. If Pt. has a central line or IVAD, may access for administration according to line specif ic nursing protocol. Once exam is complete flush line and de-access acc ording to line specific nursing protocol in the CT contrast administr ation guidelines link. clopidogrel (PLAVIX) 75 mg tablet Take 1 tablet by mouth onc e daily. REVIEW OF SYSTEMS: GENERAL: no acute distress All other ROS: negative I personally interviewed, confirmed and edited the above inf ormation as obtained by others. PHYSICAL EXAMINATION: BP 163/71 (BP Site: Right Arm, BP Position: Sitting, BP Cuff Size: Regular Adult) Pulse 67 Resp 18 Wt 71.5 kg (157 lb 11.2 oz) BMI 24.70 kg/m? General appearance: well nourished, alert and cooperative individual, in no acute distress. Neck: no JVD Pulmonary: Lungs clear to auscultation bilaterally. Coronary: regular rate Lower Extremities: Feet and toes warm Cap refill in toes < 2 sec Hair present on left foot Palp femoral pulses bilaterally Palp right DP pulse CARDIOVASCULAR MEDICINE TESTING: I have personally reviewed the SAMANTHA. DUS. IMPRESSION/PLAN: Mr. Vazquez is a 79 year old male with mixed neurogenic and a rterial claudication. CTA ordered to further assess distribution of arterial occlu sive disease. Referred for pain management. Start on plavix. Follow up with test results. ? Aron Mena MD Referring Provider: ARON MENA [[id number]] Allergies As of Date: 07/30/2019 (No Known Allergies) Date Reviewed: 07/30/2019 Reviewed by: Anuradha (Rn) EMILIANO Corrales - Fully Assessed Reason for Visit: Follow Up [171] Cmt: Test Results Primary Visit Diagnosis:Diminished pulses in lower extremity [R09.89] Other Visit Diagnosis:PAD (peripheral artery disease) (HCC) [I73.9] Order(s):CTA ABD/PEL LOWER EXTREM W IVCO N [[id number]] Order #: [id number] FUTURE iv contrast (will be provided with radiology test)CTA ABD/PE L LE - No IV access, insert saline lock prior to the sedation, infusio n, injection for imaging exam. Discontinue saline lock post exa m. If Pt. has a central line or IVAD, may access for administration ac cording to line specific nursing protocol. Once exam is complete flush line and de-access according to line specific nursing protocol in the CT contrast administration guidelines link.Disp: 1 EachRfl: 0 CONSULT TO [facility] MANAGEMENT [facility]) [[id number] ] Order #: [id number]: 1 CREATININE BLD [SQCRET] Order #: [id number] FUTURE clopidogrel (PLAVIX) 75 mg tabletTake 1 tablet by mouth once daily.Disp: 90 tabletRfl: 3 Prescriptions as of 07/30/2019 Sig: OMEPRAZOLE 20 MG CAPSULE,ROCK* Take 1 capsule by mouth once * CYCLOBENZAPRINE 10 MG TABLET Take 1 tablet by mouth at bed* CILOSTAZOL 50 MG TABLET Take 1 tablet by mouth twice * AMLODIPINE 10 MG TABLET Take 1 tablet by mouth once d* GABAPENTIN 300 MG CAPSULE 1 capsule in the morning. Co* LISINOPRIL 20 MG TABLET Take 1 tablet by mouth every * LISINOPRIL 20 MG-HYDROCHLOROT* Take 1 tablet by mouth every * MELOXICAM 15 MG TABLET Take 1 tablet by mouth once d* METOPROLOL TARTRATE 50 MG TAB* Take 1 tablet by mouth twice * ATORVASTATIN 10 MG TABLET Take 1 tablet by mouth once d* TRIAMCINOLONE ACETONIDE 0.5 %* Apply 1 application to affect * POTASSIUM CHLORIDE ER 20 MEQ * TAKE 1 TABLET EVERY DAY ASPIRIN 81 MG TABLET,DELAYED * Take 1 tablet by mouth once d * IV CONTRAST (RADIOLOGY PROCED* CTA ABD/PEL LE - No IV access * CLOPIDOGREL 75 MG TABLET Take 1 tablet by mouth once d* Problem List As Of Date 07/30/2019 Noted Resolved Dermatophytosis of foot [B35.3] INVALID FOR*06/14/2017 ESOPHAGEAL REFLUX [K21.9] INVALID FOR* HYPERTENSION NOS [I10] INVALID FOR*03/29/2014 More... MIXED HYPERLIPIDEMIA [E78.2] INVALID FOR* More... Ganglion of tendon sheath [M67.40] INVALID FOR*11/07/2016 Unspecified disorder of prostate [N42.9] INVALID FOR* 014 Inguinal hernia without mention of obstruction *INVALID FOR* 11/07/2016 Umbilical hernia without mention of obstruction*INVALID FOR* 11/07/2016 Rotator cuff (capsule) sprain [S43.429A] INVALID FOR* 017 Malignant neoplasm of prostate (HCC) [C61] INVALID FOR*11/07 More... Benign neoplasm of rectum and anal canal [D12.8*INVALID FOR* More... Tobacco use disorder [F17.200] INVALID FOR* More... Frequency of urination [R35.0] INVALID FOR*11/07/2016 Prostate cancer [C61] Diarrhea [R19.7] INVALID FOR*09/06/2014 Inguinal neuralgia [M79.2] INVALID FOR*11/07/2016 Rotator cuff impingement syndrome of right shou*INVALID FOR* Medicare annual wellness visit, subsequent [Z00*INVALID FOR* 06/20/2018 Right-sided low back pain with right-sided scia*INVALID FOR* 05/15/2016 Essential hypertension [I10] INVALID FOR* DDD (degenerative disc disease), lumbar [M51.36]INVALID FOR* Clostridium difficile colitis [A04.72] INVALID FOR* 8 Inguinal hernia [K40.90] INVALID FOR*06/20/2018 More... Traumatic complete tear of left rotator cuff [S*INVALID FOR* More... Atherosclerosis of [place] artery of left lower *INVALID FOR* Prescriptions ordered this encounter Disp Refills Start End IV CONTRAST (RADIOLOGY PROCEDURE) 1 Ea* 0 07/30/2019 Class: In Office Sig: CTA ABD/PEL LE - No IV access, insert salin e lock prior to the sedation, infusion, injection for imaging exam. Discontinue saline loc k post exam. If Pt. has a central line or IVAD, may access for administra tion according to line specific nursing protocol. Once exam is co mplete flush line and de-access according to line specific nursing protoc ol in the CT contrast administration guidelines link. CLOPIDOGREL 75 MG TABLET 90 t* 3 07/30/2019 Route: ORAL Sig: Take 1 tablet by mouth once daily. Disposition: Return in about 2 weeks (around 08/13/2019). Follow-up and Disposition History Recorded Encounter Status:Closed by ARON MENA MD on 07/30/19 allied health on 01-08-17 [facility] HNO ID: [id number] Normal [address] [place] [address] Author: Michael LantiguaRt) Serafin Haddad ([id number]) Service: ? Author Type: Child Psychologist Type: Allied Health Filed: 07/30/2019 6:28 PM Note Text: Radiology Service Progress Note DATE OF SERVICE: July 30, 2019 TIME: 6:27 PM PATIENT IDENTITY VERIFICATION COMPLETED USING TWO (2) STAN[address] RD IDENTIFIERS: Name and Date of confirmed by patient antonio bally and Name and Date of confirmed by identification band. PATIENT GENDER DATA: Male PATIENT RELEVANT IMPLANT DATA REVIEWED: Not Applicable ALLERGIES: Reviewed and unchanged CONTRAST ALLERGY: NO. EXAM: CT -CONTRAST INDUCED NEPHROPATHY RISK FACTORS: Patient age > 60 years CREATININE: Creatinine Date Value Ref Range Status 07/30/2019 0.76 0.73 - 1.22 mg/dL Final 06/03/2018 1.15 0.73 - 1.22 mg/dL Final 12/17/2017 1.18 0.73 - 1.22 mg/dL Final eGFR-All Other Races Date Value Ref Range Status 07/30/2019 >60 . Final Comment: eGFR (Estimated GFR) Units of measure: mL/min/1.73 meters sq uared eGFR is derived from the reexpressed MDRD Study equation usi ng the following parameters: serum creatinine, age, gender and race. The crea tinine assay has been calibrated to be traceable to IDMS. An eGFR <60 mL/min/1.73m2 for >3 months is consistent with c hronic kidney disease. Refer to KDOQI guidelines for clinical interpretati on. In patients with unstable renal function, e.g. those with ac inaja kidney injury, the eGFR may not accurately reflect actual GFR. eGFR- Date Value Ref Range Status 07/30/2019 >60 Final P.O.C.T. RESULTS: POC done: Yes, See Lab Tab July 30 9 TREATMENT: N/A PERIPHERAL IV DATA: Ambulatory: A peripheral IV was started in the Right antecubital site with a Angio cath: 20 gauge. RADIOLOGY DEPARTMENT: CT; Exam(s) Completed: CTA Aorta/leg r unoff SIGNATURE: RT Adan PATIENT NAME: Tye Vazquez DATE: July 30, 2019 TIME: 6:27 PM progress on 2019-07 PROGRESS HNO ID: [id number] Normal 07-22-2019 [facility] Author: Aron Mena [place] Service: ? ([id number]) Author Type: Physician Type: Progress Notes Filed: 07/22/2019 1:07 PM Note Text: [facility] OUTPATIENT VISIT DATE July 22, 2019 OUTPATIENT VISIT TYPE NEW PRIMARY CARE PHYSICIAN: Talon Bolaños MD [address] [place], [place] [phone] REFERRING PHYSICIAN Talon Bolaños MD [address] [place], [place] [phone] CHIEF COMPLAINT: Patient presents with: New Patient Evaluation HISTORY OF PRESENT ILLNESS: Tye Vazquez was referred for consultation by Dr. Remedios kuhn. Opinions and recommendations in this consultation will be transmitted back to the referring physician by [facility] notes or via mail. Mr. Vazquez is a 79 year old male PMH DDD who is seen today f or evaluation for PAD, and leg discomfort. In May 2018 underwent spine surgery which resolved many o f his lower extremity complaints. Subsequently had a fall and has result ed in shoulder injury as well as new onset of left leg pain. Today he complains of pain extending down from the lateral t high down the leg. Also complains of toe coldness. Also has numbness in th e bilateral knees on down. He is able to walk to his mailbox however sta rts to develop left calf discomfort preventing him from walking further. He would like to be able to walk more. Attempted trial of cilostazol however this did not help. Last SAMANTHA 09/2018 1 bilaterally. Smokes few cig/day, had smoked 15 pack years. PAST MEDICAL HISTORY Diagnosis Date - Benign neoplasm of colon - Benign neoplasm of rectum and anal canal - Clostridium difficile colitis 05/14/2017 - DDD (degenerative disc disease), lumbar 11/07/2016 - Diarrhea - Esophageal reflux 08/29/2006 - Essential hypertension, benign - Inguinal hernia without mention of obstruction or gangrene , unilateral or unspecified, (not specified as recurrent) 10/11/2008 - Mixed hyperlipidemia 09/02/2006 - Nonspecific (abnormal) findings on radiological and other examination of abdominal area, including retroperitoneum - Prostate cancer (HCC) - 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. - Umbilical hernia without mention of obstruction or gangren e 10/11/2008 PAST SURGICAL HISTORY Procedure Laterality Date - COLONOSCOP W/ OR W/O [facility] SPEC 04/26/2014 Colonoscopy - COLONOSCOP W/ OR W/O [facility] SPEC 05/07/16 Colonoscopy - COLONOSCOPY AND POLYPECTOMY 05/15/10 tubular adenomas removed- [place] - LAMINECTOMY,>2 SGMT,LUMBAR 06/11/2018 [facility] - PAST SURGICAL HISTORY OF 2001 bilat cataracts, retina - RECONSTRUCT PROX HUMERAL IMPLANT Right 1993 Arthroplasty, shoulder right x 2. 1991, 1993. - REPAIR ING HERNIA,5+Y/O,REDUCIBL 11/26/2008 left - REPAIR ING HERNIA,5+Y/O,REDUCIBL 01/20/2018 Hernia repair, inguinal right, indirect w/medium mesh plug [facility] - REPAIR UMBILICAL ALBERT,5+Y/O,REDUC 11/26/2008 - SEED IMPLANT 05/2010 for prostate cancer - SIGMOIDOSCOPY FLEX DIAG 12/05/10 SOCIAL HISTORY Social History Tobacco Use - Smoking status: Current Every Day Smoker Packs/day: 0.50 Years: 30.00 Pack years: 15.00 Types: Cigarettes - Smokeless tobacco: Never Used Substance Use Topics - Alcohol use: Yes Alcohol/week: 7.5 standard drinks Types: 3 Glasses of Wine (5oz) per week Comment: 1/2 oz at night - Drug use: No FAMILY HISTORY Problem Relation Age of Onset - Diabetes Brother skin cancer - Prostate Cancer Brother - Stroke Mother - Blood Disease Father - Coronary Artery Disease Brother - other (Other) Brother paraplegia ALLERGIES: ALLERGIES No Known Allergies MEDICATIONS: cilostazol (PLETAL) 50 mg tablet Take 1 tablet by mouth twic e daily. amLODIPine (NORVASC) 10 mg tablet Take 1 tablet by mouth onc e daily. gabapentin (NEURONTIN) 300 mg capsule 1 capsule in the morni ng. Continue 2 capsules at bedtime. lisinopril (ZESTRIL, PRINIVIL) 20 mg tablet Take 1 tablet by mouth every evening. lisinopril-hydrochlorothiazide (PRINZIDE,ZESTORETIC) 20-12.5 mg per tablet Take 1 tablet by mouth every morning. meloxicam (MOBIC) 15 mg tablet Take 1 tablet by mouth once d aily as needed (joint pains.). Take with food. omeprazole (PRILOSEC) 20 mg capsule Take 1 capsule by mouth once daily. cyclobenzaprine (FLEXERIL) 10 mg tablet Take 1 tablet by fermín th at bedtime as needed for Muscle Spasm. metoprolol tartrate, short acting, (LOPRESSOR) 50 mg tablet Take 1 tablet by mouth twice daily. atorvastatin (LIPITOR) 10 mg tablet Take 1 tablet by mouth o nce daily. triamcinolone acetonide (KENALOG) 0.5 % cream Apply 1 applic ation to affected area twice daily. For rash/itching. Apply sparingly . Avoid face/skin fold. potassium chloride ER (K-DUR, KLOR-CON) 20 mEq tablet TAKE 1 TABLET EVERY DAY aspirin, enteric coated (ASPIRIN, ENTERIC COATED) 81 mg EC t ablet Take 1 tablet by mouth once daily. REVIEW OF SYSTEMS: GENERAL: no acute distress All other ROS: negative I personally interviewed, confirmed and edited the above inf ormation as obtained by others. PHYSICAL EXAMINATION: BP 158/67 (BP Site: Left Arm, BP Position: Sitting, BP Cuff Size: Regular Adult) Pulse 75 Ht 170.2 cm (5' 7) Wt 71.6 kg (157 lb 12.8 oz) BMI 24.71 kg/m? General appearance: alert and cooperative individual, in no acute distress. Neck: no bruits Pulmonary: Lungs clear to auscultation bilaterally. Coronary: regular rate Lower Extremities: Feet and toes warm Palp right popliteal and DP pulse Doppler signal, biphasic in left DP Motor/sensory intact in bilateral feet, toes pink < 2 sec ca p refill CARDIOVASCULAR MEDICINE TESTING: I have personally reviewed the SAMANTHA/PVR. IMPRESSION/PLAN: Mr. Vazquez is a 79 year old male with mixed neurogenic and a rterial claudication. SAMANTHA/PVR w/ exercise, DUS arterial aorta and LLE. Follow up with test results. Offered evaluation with pain management, he was not interest ed at this time. Aron Mena MD cnov on 2019-07-22 CNOV Office Visit ([facility]) Normal 07-22-20 [facility] TYE VAZQUEZ ([id number]) 1940 [address] [facility] Date Time Provider Department ([id number]) 07/22/19 10:30 AM ARON MENA During your visit today, we recorded the following informati on about you: Pulse Blood pressure Weight Height 75/minute 158/67 71.6 kg 1.702 m Aron Mena MD 07/22/2019 1:07 PM Signed [facility] OUTPATIENT VISIT DATE July 22, 2019 OUTPATIENT VISIT TYPE NEW PRIMARY CARE [place]YSIC[place]: [place] [address] [place], [place] [phone] [place] [address] [place], [place] [id number] CHIEF COMPLAINT: Patient presents with: New Patient Evaluation HISTORY OF PRESENT ILLNESS: Tye Vazquez was referred for consultation by Dr. Ruth phillips. Opinions and recommendations in this consultation arlin l be transmitted back to the referring physician by Epic notes or via mail. Mr. Vazquze is a 79 year old male H DDD who is seen today for evaluation for PAD, and leg discomfort. In May 2018 underwent spine surgery which resolved many o f his lower extremity complaints. Subsequently had a fall and has result ed in shoulder injury as well as new onset of left leg pain. Today he complains of pain extending sampson n from the lateral thigh down the leg. Also complains of toe coldness. Also has numbness in the b ilateral knees on down. He is able to walk to his mailbox however starts to develop left calf discomfort preventing him from walking further. He would l dede to be able to walk more. Attempted trial of cilostazol however this did not help. Last SAMANTHA 09/2018 1 bilaterally. Smokes few cig/day, had smoked 15 pack years. 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. - Umbilical hernia without mention of obstruction or gangren e 10/11/2008 PAST SURGICAL HISTORY Procedure Laterality Date - COLONOSCOP W/ OR W/O [facility] SPEC 04/26/2014 Colonoscopy - COLONOSCOP W/ OR W/O [facility] SPEC 05/07/16 Colonoscopy - COLONOSCOPY AND POLYPECTOMY 05/15/10 tubular adenomas removed- [place] - LAMINECTOMY,>2 SGMT,LUMBAR 06/11/2018 [facility] - PAST SURGICAL HISTORY OF 2001 bilat cataracts, retina - RECONSTRUCT PROX HUMERAL IMPLANT Right 1993 Arthroplasty, shoulder right x 2. 1991, 1993. - REPAIR ING HERNIA,5+Y/O,REDUCIBL 11/26/2008 left - REPAIR ING HERNIA,5+Y/O,REDUCIBL 01/20/2018 Hernia repair, inguinal right, indirect w/medium mesh plug [facility] - REPAIR UMBILICAL ALBERT,5+Y/O,REDUC 11/26/2008 - SEED IMPLANT 05/2010 for prostate cancer - SIGMOIDOSCOPY FLEX DIAG 12/05/10 SOCIAL HISTORY Social History Tobacco Use - Smoking status: Current Every Day Smoker Packs/day: 0.50 Years: 30.00 Pack years: 15.00 Types: Cigarettes - Smokeless tobacco: Never Used Substance Use Topics - Alcohol use: Yes Alcohol/week: 7.5 standard drinks Types: 3 Glasses of Wine (5oz) per week Comment: 1/2 oz at night - Drug use: No FAMILY HISTORY Problem Relation Age of Onset - Diabetes Brother skin cancer - Prostate Cancer Brother - Stroke Mother - Blood Disease Father - Coronary Artery Disease Brother - other (Other) Brother paraplegia ALLERGIES: ALLERGIES No Known Allergies MEDICATIONS: cilostazol (PLETAL) 50 mg tablet Take 1 tablet by mouth twic e daily. amLODIPine (NORVASC) 10 mg tablet Take 1 tablet by mouth onc e daily. gabapentin (NEURONTIN) 300 mg capsule 1 capsule in the morni ng. Continue 2 capsules at bedtime. lisinopril (ZESTRIL, PRINIVIL) 20 mg tablet Take 1 tablet by mouth every evening. lisinopril-hydrochlorothiazi de (PRINZIDE,ZESTORETIC) 20-12.5 mg per tablet Take 1 tablet by mouth every morning. meloxicam (MOBIC) 15 mg tablet Take 1 tablet by mouth once d aily as needed (joint pains.). Take with food. omeprazole (PRILOSEC) 20 mg capsule Take 1 capsule by mouth once daily. cyclobenzaprine (FLEXERIL) 10 mg tablet Take 1 tablet by mouth at bedtime as needed for Muscle Spasm. metoprolol tartrate, short acting, (LOPRESSOR) 50 mg t ablet Take 1 tablet by mouth twice daily. atorvastatin (LIPITOR) 10 mg tablet Take 1 tablet by mouth o nce daily. triamcinolone acetonide (KENALOG) 0.5 % cream Ap ply 1 application to affected area twice daily. For rash/itching. Apply sparingly. Avoid f carson/skin fold. potassium chloride ER (K-DUR, KLOR-CON) 20 mEq t ablet TAKE 1 TABLET EVERY DAY aspirin, enteric coated (ASP IRIN, ENTERIC COATED) 81 mg EC tablet Take 1 tablet by mouth once daily. REVIEW OF SYSTEMS: GENERAL: no acute distress All other ROS: negative I personally interviewed, confirmed and edited the above inf ormation as obtained by others. PHYSICAL EXAMINATION: BP 158/67 (BP Site: Left Arm, BP Position: Sitting, BP Cuff Size: Regular Adult) Pulse 75 Ht 170.2 cm (5' 7) Wt 71.6 kg (157 lb 12.8 oz) BMI 24.71 kg/m? General appearance: alert and cooperative individual, in n o acute distress. Neck: no bruits Pulmonary: Lungs clear to auscultation bilaterally. Coronary: regular rate Lower Extremities: Feet and toes warm Palp right popliteal and DP pulse Doppler signal, biphasic in left DP Motor/sensory intact in bilateral feet, toes pink < 2 sec ca p refill CARDIOVASCULAR MEDICINE TESTING: I have personally reviewed the SAMANTHA/PVR. IMPRESSION/PLAN: Mr. Vazquez is a 79 year old male with mixed neurogenic and a rterial claudication. SAMANTHA/PVR w/ exercise, DUS arterial aorta and LLE. Follow up with test results. Offered evaluation with pain management, he was not in terested at this time. Aron Mena MD Referring Provider: TALON BOLAÑOS [[id number]] Allergies As of Date: 07/22/2019 (No Known Allergies) Date Reviewed: 07/22/2019 Reviewed by: Rehana Dobbins - Fully Assessed Reason for Visit: New Patient Evaluation [154] Primary Visit Diagnosis:PAD (peripheral artery disease) ([facility] ) [I73.9] Other Visit Diagnosis:Atherosclerosis of [place] artery of le ft lower extremity with intermittent claudication ([facility]) [I70.212] Order(s):PVR ANK PRESS W/EXC [facility] [[id number]] Order #: [id number] FUTURE US LEG ARTERIAL PERIPH UNL [facility] [[id number]] Order #: [id number] FUTURE US ABD AORTA COMPLETE [facility] [[id number]] Order #: [id number] FUTURE Prescriptions as of 07/22/2019 Sig: CILOSTAZOL 50 MG TABLET Take 1 tablet by mouth twice * AMLODIPINE 10 MG TABLET Take 1 tablet by mouth once d* GABAPENTIN 300 MG CAPSULE 1 capsule in the morning. Co* LISINOPRIL 20 MG TABLET Take 1 tablet by mouth every * LISINOPRIL 20 MG-HYDROCHLOROT* Take 1 tablet by mouth every * MELOXICAM 15 MG TABLET Take 1 tablet by mouth once d* OMEPRAZOLE 20 MG CAPSULE,ROCK* Take 1 capsule by mouth once * CYCLOBENZAPRINE 10 MG TABLET Take 1 tablet by mouth at bed* METOPROLOL TARTRATE 50 MG TAB* Take 1 tablet by mouth twice * ATORVASTATIN 10 MG TABLET Take 1 tablet by mouth once d* TRIAMCINOLONE ACETONIDE 0.5 %* Apply 1 application to affect * POTASSIUM CHLORIDE ER 20 MEQ * TAKE 1 TABLET EVERY DAY ASPIRIN 81 MG TABLET,DELAYED * Take 1 tablet by mouth once d * Problem List As Of Date 07/22/2019 Noted Resolved Dermatophytosis of foot [B35.3] INVALID FOR*06/14/2017 ESOPHAGEAL REFLUX [K21.9] INVALID FOR* HYPERTENSION NOS [I10] INVALID FOR*03/29/2014 More... MIXED HYPERLIPIDEMIA [E78.2] INVALID FOR* More... Ganglion of tendon sheath [M67.40] INVALID FOR*11/07/2016 Unspecified disorder of prostate [N42.9] INVALID FOR* 014 Inguinal hernia without mention of obstruction *INVALID FOR* 11/07/2016 Umbilical hernia without mention of obstruction*INVALID FOR* 11/07/2016 Rotator cuff (capsule) sprain [S43.429A] INVALID FOR* 017 Malignant neoplasm of prostate (HCC) [C61] INVALID FOR*11/07 More... Benign neoplasm of rectum and anal canal [D12.8*INVALID FOR* More... Tobacco use disorder [F17.200] INVALID FOR* More... Frequency of urination [R35.0] INVALID FOR*11/07/2016 Prostate cancer [C61] Diarrhea [R19.7] INVALID FOR*09/06/2014 Inguinal neuralgia [M79.2] INVALID FOR*11/07/2016 Rotator cuff impingement syndrome of right shou*INVALID FOR* Medicare annual wellness visit, subsequent [Z00*INVALID FOR* 06/20/2018 Right-sided low back pain with right-sided scia*INVALID FOR* 05/15/2016 Essential hypertension [I10] INVALID FOR* DDD (degenerative disc disease), lumbar [M51.36]INVALID FOR* Clostridium difficile colitis [A04.72] INVALID FOR* 8 Inguinal hernia [K40.90] INVALID FOR*06/20/2018 More... Traumatic complete tear of left rotator cuff [S*INVALID FOR* More... Atherosclerosis of [place] artery of left lower *INVALID FOR* Encounter Status:Closed by ARON MENA MD on 07/22/19 obsolete on 2019-06 OBSOLETE Refill (INTMWS) Normal 07-09-2019 [facility] VAZQUEZTYE ([id number]) 1940 [place] Date Time Provider Department ([id number]) 07/09/19 TALON BOLAÑOS INTBROOKE During your visit today, we recorded the following informati on about you: Jes Parra [facility] 07/09/2019 10:15 AM Signed Patient has been identified by name and date of : Yes Pending Prescriptions Disp Refills OMEPRAZOLE 20 MG CAPSULE,DELAYED RELEASE 90 capsule 3 Sig: Take 1 capsule by mouth once daily. SAY: No RX INSTRUCTIONS: Patient aware RX will be sent to pharmacy. No need to notify patient. Jes Parra [facility] Shavonne Fong LPN 07/09/2019 2:43 PM Signed Message left for pt to return call to a nurse. Last month rx sent to [facility]. Still need rx to [facility]? Jossy Laura Pss 07/10/2019 9:21 AM Signed Patient returned call and said it is oka y that Rx was sent to [facility] - no need for Rx to be sent to [facility] - thank you Shavonne Fong LPN 07/10/2019 10:33 AM Signed In review this was sent in May. Faxed to [facility] this info . Allergies As of Date: 07/09/2019 (No Known Allergies) Date Reviewed: 07/01/2019 Reviewed by: Yennifer Bianchi LPN - Fully Assessed Reason for Visit: Refill Request [94] Visit Diagnosis:Gastroesophageal reflux disease, esophagitis presence not specified [K21.9] Prescriptions as of 07/09/2019 Sig: CILOSTAZOL 50 MG TABLET Take 1 tablet by mouth twice * AMLODIPINE 10 MG TABLET Take 1 tablet by mouth once d* GABAPENTIN 300 MG CAPSULE 1 capsule in the morning. Co* LISINOPRIL 20 MG TABLET Take 1 tablet by mouth every * LISINOPRIL 20 MG-HYDROCHLOROT* Take 1 tablet by mouth every * MELOXICAM 15 MG TABLET Take 1 tablet by mouth once d* OMEPRAZOLE 20 MG CAPSULE,ROCK* Take 1 capsule by mouth once * CYCLOBENZAPRINE 10 MG TABLET Take 1 tablet by mouth at bed* METOPROLOL TARTRATE 50 MG TAB* Take 1 tablet by mouth twice * ATORVASTATIN 10 MG TABLET Take 1 tablet by mouth once d* TRIAMCINOLONE ACETONIDE 0.5 %* Apply 1 application to affect * POTASSIUM CHLORIDE ER 20 MEQ * TAKE 1 TABLET EVERY DAY Patient not taking: Reported on 07/01/2019 ASPIRIN 81 MG TABLET,DELAYED * Take 1 tablet by mouth once d * Problem List As Of Date 07/09/2019 Noted Resolved Dermatophytosis of foot [B35.3] INVALID FOR*06/14/2017 ESOPHAGEAL REFLUX [K21.9] INVALID FOR* HYPERTENSION NOS [I10] INVALID FOR*03/29/2014 More... MIXED HYPERLIPIDEMIA [E78.2] INVALID FOR* More... Ganglion of tendon sheath [M67.40] INVALID FOR*11/07/2016 Unspecified disorder of prostate [N42.9] INVALID FOR* 014 Inguinal hernia without mention of obstruction *INVALID FOR* 11/07/2016 Umbilical hernia without mention of obstruction*INVALID FOR* 11/07/2016 Rotator cuff (capsule) sprain [S43.429A] INVALID FOR* 017 Malignant neoplasm of prostate (HCC) [C61] INVALID FOR*11/07 More... Benign neoplasm of rectum and anal canal [D12.8*INVALID FOR* More... Tobacco use disorder [F17.200] INVALID FOR* More... Frequency of urination [R35.0] INVALID FOR*11/07/2016 Prostate cancer [C61] Diarrhea [R19.7] INVALID FOR*09/06/2014 Inguinal neuralgia [M79.2] INVALID FOR*11/07/2016 Rotator cuff impingement syndrome of right shou*INVALID FOR* Medicare annual wellness visit, subsequent [Z00*INVALID FOR* 06/20/2018 Right-sided low back pain with right-sided scia*INVALID FOR* 05/15/2016 Essential hypertension [I10] INVALID FOR* DDD (degenerative disc disease), lumbar [M51.36]INVALID FOR* Clostridium difficile colitis [A04.72] INVALID FOR* 8 Inguinal hernia [K40.90] INVALID FOR*06/20/2018 More... Traumatic complete tear of left rotator cuff [S*INVALID FOR* More... Encounter Status:Closed by SHAVONNE FONG LPN on 07/10/19 progress on 2019-06 PROGRESS HNO ID: [id number] Normal 07-01-2019 [facility] Author: Talon Bolaños [place] Service: ? ([id number]) Author Type: Physician Type: Progress Notes Filed: 07/01/2019 4:27 PM Note Text: This note was created using VOZ. Subjective Tye Vazquez is a 79 year old male. He complained of chronic left sided sciatica pain, worse sin october. Pain involved his left gluteal area, radiating down his post erior thigh, calf, and foot. Pain was constant, burning, moderately sever e, and aggravated by walking, decreased but not completely relieved by resting for a few minutes. Other symptoms were cold left foot. He had sciatica of his right leg last year, relieved by lumb ar surgery. His other conditions were stable. He was grieving his 's passing, and hospice was still counseling him. ACTIVE PROBLEM LIST Esophageal Reflux Mixed Hyperlipidemia Benign Neoplasm of Rectum and Anal Canal Tobacco Use Disorder Prostate Cancer (Hcc) Rotator Cuff Impingement Syndrome of Right Shoulder Essential Hypertension Ddd (Degenerative Disc Disease), Lumbar Traumatic Complete Tear of Left Rotator Cuff Current Outpatient Medications: amLODIPine (NORVASC) 10 mg tablet Take 1 tablet by mouth onc e daily. gabapentin (NEURONTIN) 300 mg capsule 1 capsule in the morni ng. Continue 2 capsules at bedtime. lisinopril (ZESTRIL, PRINIVIL) 20 mg tablet Take 1 tablet by mouth every evening. lisinopril-hydrochlorothiazide (PRINZIDE,ZESTORETIC) 20-12.5 mg per tablet Take 1 tablet by mouth every morning. meloxicam (MOBIC) 15 mg tablet Take 1 tablet by mouth once d aily as needed (joint pains.). Take with food. omeprazole (PRILOSEC) 20 mg capsule Take 1 capsule by mouth once daily. cyclobenzaprine (FLEXERIL) 10 mg tablet Take 1 tablet by fermín th at bedtime as needed for Muscle Spasm. metoprolol tartrate, short acting, (LOPRESSOR) 50 mg tablet Take 1 tablet by mouth twice daily. atorvastatin (LIPITOR) 10 mg tablet Take 1 tablet by mouth o nce daily. triamcinolone acetonide (KENALOG) 0.5 % cream Apply 1 applic ation to affected area twice daily. For rash/itching. Apply sparingly . Avoid face/skin fold. cilostazol (PLETAL) 50 mg tablet Take 1 tablet by mouth twic e daily. potassium chloride ER (K-DUR, KLOR-CON) 20 mEq tablet TAKE 1 TABLET EVERY DAY (Patient not taking: Reported on 07/01/2019) aspirin, enteric coated (ASPIRIN, ENTERIC COATED) 81 mg EC t ablet Take 1 tablet by mouth once daily. No current facility-administered medications for this visit. Review of Systems Constitutional: Negative. Respiratory: Negative. Cardiovascular: Negative. Gastrointestinal: Negative. Genitourinary: Negative. Musculoskeletal: Positive for back pain and myalgias. Objective BP 126/72 Pulse 68 Temp 36.9 ?C (98.5 ?F) Resp 18 Wt 70.8 kg (156 lb) SpO2 97% BMI 24.43 kg/m? Physical Exam Constitutional: No distress. Cardiovascular: Normal heart sounds. Pulses: Femoral pulses are 1+ on the right side, and 1+ on the left side with bruit. Dorsalis pedis pulses are 0 on the right side, and 0 on the left side. Posterior tibial pulses are 0 on the right side, and 0 on th e left side. Pulmonary/Chest: Breath sounds normal. Abdominal: Soft. Musculoskeletal: He exhibits no edema. Left hip: He exhibits normal range of motion and no tenderne ss. Neurological: He has normal strength. No sensory deficit. Skin: No cyanosis. Assessment and Plan 1. PAD (peripheral artery disease) (HCC) - ICD9: 443.9, ICD1 0: I73.9 (primary diagnosis) DDx: neuropathy, sciatica, but need to rule out PAD. - CONSULT TO VASCULAR MEDICINE - Vascular study done 2017. - Discontinue smoking. 2. Essential hypertension - ICD9: 401.9, ICD10: I10 - good control - Continue current medication(s) - Goal of BP <130/80 3. DDD (degenerative disc disease), lumbar - ICD9: 722.52, I CD10: M51.36 Chronic low back pain See #1. Talon Bolaños MD cnov on 2019-07-01 CNOV Office Visit (INTMWS) Normal 07-01-20 [facility] TYE VAZQUEZ ([id number]) 1940 [address] [place] Date Time Provider Department ([id number]) 07/01/19 2:40 PM TALON BOLAÑOS INTMWS During your visit today, we recorded the following informati on about you: Temperature Pulse Respiration Blood pressure 98.5 degrees 68/minute 18/minute 126/72 Weight 70.8 kg Talon Bolaños MD 07/01/2019 4:27 PM Signed This note was created using NoteWriter. Subjective Tye Vazquez is a 79 year old male. He complained of chronic left sided sciatica pain, wor se since October. Pain involved his left gluteal area, radiating down h is posterior thigh, calf, and foot. Pain was constant, burning, moderately severe, and agg ravated by walking, decreased but not completely relieved by rest ing for a few minutes. Other symptoms were cold left foot. He had sciatica of his right leg last year, relieved by lumb ar surgery. His other conditions were stable. He was grieving his 's passing, and hospice was still counseling him. ACTIVE PROBLEM LIST Esophageal Reflux Mixed Hyperlipidemia Benign Neoplasm of Rectum and Anal Canal Tobacco Use Disorder Prostate Cancer (Hcc) Rotator Cuff Impingement Syndrome of Right Shoulder Essential Hypertension Ddd (Degenerative Disc Disease), Lumbar Traumatic Complete Tear of Left Rotator Cuff Current Outpatient Medications: amLODIPine (NORVASC) 10 mg tablet Take 1 tablet by mouth onc e daily. gabapentin (NEURONTIN) 300 mg capsule 1 capsule in the morni ng. Continue 2 capsules at bedtime. lisinopril (ZESTRIL, PRINIVIL) 20 mg tablet Take 1 tablet by mouth every evening. lisinopril-hydrochlorothiazi de (PRINZIDE,ZESTORETIC) 20-12.5 mg per tablet Take 1 tablet by mouth every morning. meloxicam (MOBIC) 15 mg tablet Take 1 tablet by mouth once d aily as needed (joint pains.). Take with food. omeprazole (PRILOSEC) 20 mg capsule Take 1 capsule by mouth once daily. cyclobenzaprine (FLEXERIL) 10 mg tablet Take 1 tablet by mouth at bedtime as needed for Muscle Spasm. metoprolol tartrate, short acting, (LOPRESSOR) 50 mg t ablet Take 1 tablet by mouth twice daily. atorvastatin (LIPITOR) 10 mg tablet Take 1 tablet by mouth o nce daily. triamcinolone acetonide (KENALOG) 0.5 % cream Ap ply 1 application to affected area twice daily. For rash/itching. Apply sparingly. Avoid f carson/skin fold. cilostazol (PLETAL) 50 mg tablet Take 1 tablet by mouth twic e daily. potassium chloride ER (K-DUR, KLOR-CON) 20 mEq t ablet TAKE 1 TABLET EVERY DAY (Patient not taking: Reported on 07/01/2019) aspirin, enteric coated (ASP IRIN, ENTERIC COATED) 81 mg EC tablet Take 1 tablet by mouth once daily. No current facility-administered medications for this visit. Review of Systems Constitutional: Negative. Respiratory: Negative. Cardiovascular: Negative. Gastrointestinal: Negative. Genitourinary: Negative. Musculoskeletal: Positive for back pain and myalgias. Objective BP 126/72 Pulse 68 Temp 36.9 ?C (98.5 ?F) Resp 18 Wt 70.8 kg (156 lb) SpO2 97% BMI 24.43 kg/m? Physical Exam Constitutional: No distress. Cardiovascular: Normal heart sounds. Pulses: Femoral pulses are 1+ on the right side, and 1+ on the left side with bruit. Dorsalis pedis pulses are 0 on the right side, and 0 on the left side. Posterior tibial pulses are 0 on the right side, and 0 on th e left side. Pulmonary/Chest: Breath sounds normal. Abdominal: Soft. Musculoskeletal: He exhibits no edema. Left hip: He exhibits normal range of motion and no tenderne ss. Neurological: He has normal strength. No sensory deficit. Skin: No cyanosis. Assessment and Plan 1. PAD (peripheral artery disease) (HCC) - ICD9: 443.9, ICD10: I73.9 (primary diagnosis) DDx: neuropathy, sciatica, but need to rule out PAD. - CONSULT TO VASCULAR MEDICINE - Vascular study done 2017. - Discontinue smoking. 2. Essential hypertension - ICD9: 401.9, ICD10: I10 - good control - Continue current medication(s) - Goal of BP <130/80 3. DDD (degenerative disc disease), lumbar - ICD9: 722.52, I CD10: M51.36 Chronic low back pain See #1. Talon Bolaños MD Referring Provider: SELF [200] Allergies As of Date: 07/01/2019 (No Known Allergies) Date Reviewed: 07/01/2019 Reviewed by: Yennifer Bianchi LPN - Fully Assessed Reason for Visit: Established Patient [175] Cmt: Follow up back issues Primary Visit Diagnosis:PAD (peripheral artery disease) ([facility] ) [I73.9] Other Visit Diagnoses:Essential hypertension [I10] DDD (degenerative disc disease), lumbar [M51.36] Order(s):cilostazol (PLETAL) 50 mg tabletTake 1 tablet by [facility] twice daily.Disp: 60 tabletRfl: 0 CONSULT TO VASCULAR MEDICINE [[id number]] Order #: [id number] : 1 Prescriptions as of 07/01/2019 Sig: AMLODIPINE 10 MG TABLET Take 1 tablet by mouth once d* GABAPENTIN 300 MG CAPSULE 1 capsule in the morning. Co* LISINOPRIL 20 MG TABLET Take 1 tablet by mouth every * LISINOPRIL 20 MG-HYDROCHLOROT* Take 1 tablet by mouth every * MELOXICAM 15 MG TABLET Take 1 tablet by mouth once d* OMEPRAZOLE 20 MG CAPSULE,ROCK* Take 1 capsule by mouth once * CYCLOBENZAPRINE 10 MG TABLET Take 1 tablet by mouth at bed* METOPROLOL TARTRATE 50 MG TAB* Take 1 tablet by mouth twice * ATORVASTATIN 10 MG TABLET Take 1 tablet by mouth once d* TRIAMCINOLONE ACETONIDE 0.5 %* Apply 1 application to affect * CILOSTAZOL 50 MG TABLET Take 1 tablet by mouth twice * POTASSIUM CHLORIDE ER 20 MEQ * TAKE 1 TABLET EVERY DAY Patient not taking: Reported on 07/01/2019 ASPIRIN 81 MG TABLET,DELAYED * Take 1 tablet by mouth once d * Problem List As Of Date 07/01/2019 Noted Resolved Dermatophytosis of foot [B35.3] INVALID FOR*06/14/2017 ESOPHAGEAL REFLUX [K21.9] INVALID FOR* HYPERTENSION NOS [I10] INVALID FOR*03/29/2014 More... MIXED HYPERLIPIDEMIA [E78.2] INVALID FOR* More... Ganglion of tendon sheath [M67.40] INVALID FOR*11/07/2016 Unspecified disorder of prostate [N42.9] INVALID FOR* 014 Inguinal hernia without mention of obstruction *INVALID FOR* 11/07/2016 Umbilical hernia without mention of obstruction*INVALID FOR* 11/07/2016 Rotator cuff (capsule) sprain [S43.429A] INVALID FOR* 017 Malignant neoplasm of prostate (HCC) [C61] INVALID FOR*11/07 More... Benign neoplasm of rectum and anal canal [D12.8*INVALID FOR* More... Tobacco use disorder [F17.200] INVALID FOR* More... Frequency of urination [R35.0] INVALID FOR*11/07/2016 Prostate cancer [C61] Diarrhea [R19.7] INVALID FOR*09/06/2014 Inguinal neuralgia [M79.2] INVALID FOR*11/07/2016 Rotator cuff impingement syndrome of right shou*INVALID FOR* Medicare annual wellness visit, subsequent [Z00*INVALID FOR* 06/20/2018 Right-sided low back pain with right-sided scia*INVALID FOR* 05/15/2016 Essential hypertension [I10] INVALID FOR* DDD (degenerative disc disease), lumbar [M51.36]INVALID FOR* Clostridium difficile colitis [A04.72] INVALID FOR* 8 Inguinal hernia [K40.90] INVALID FOR*06/20/2018 More... Traumatic complete tear of left rotator cuff [S*INVALID FOR* More... Prescriptions ordered this encounter Disp Refills Start End CILOSTAZOL 50 MG TABLET 60 t* 0 07/01/2019 Route: ORAL Sig: Take 1 tablet by mouth twice daily. Disposition: Return in about 3 months (around 09/30/2019), o r if symptoms worsen or fail to improve. Follow-up and Disposition History Recorded Encounter Status:Closed by TALON BOLAÑOS MD on 07/01/19 office visit: postop - 1st visit, rm: on 2018-06-26 NEGATED: Done Invalid Interpretation 018 - [facility] Highlighted Code 06-26-2018 [facility] rowProtein mass - Or [facility]opa[facility] conc [facility] Boni gutierrez ([id number]) clinical summary: hmspatientid on 2018-06-26 OOP Invalid 06-26-2018 - [facility] Interpretation Code 06-26-2018 [facility] - [facility] C brenda ([id number]) office visit: new/est - 1st visit with parker yin, rm: 37 on 2018-03-24 NEGATED: Highlighted Done Invalid 8 - [facility] rowDocumentation of Interpretation 03-24 Orthopaedic current medications Code Center - (procedure) [facility]opae [facility] Boni gutierrez ([id number]) NEGATED: Highlighted former smoker Invalid 03-24 - [facility] rowTobacco smoking Interpretation 2017 [facility] status NHIS Code Center - [facility] C brenda ([id number]) NEGATED: Highlighted of the back Invalid 018 - [facility] rowxray history on 02/2018 at Interpretation 2017 [facility] [place] Code [place] [facility] C brenda ([id number]) clinical summary: scanned ros summary on 2018-03-24 endocrine ROS Denies Invalid 03-24-2018 - [facility] Interpretation 03-24-2018 Orth opaedic Code [facility] C brenda ([id number]) genitourinary review Denies Invalid 8 - [facility] of systems, E&M Interpretation 8 [facility]opa[facility] Code [facility] C [facility] ([id number]) Lymphocytes Denies Invalid 03-24-2018 - [facility] Interpretation 03-24-2018 Orth opaedic Code [place] - [facility] C linaldo ([id number]) Review of Systems Numbness,Tingl Invalid 018 - [facility] Neurologic comment ing,Weakness Interpretation [facility] Code [place] - [facility] C [facility] ([id number]) ROS Cardiac: Ankle Invalid 03-24-2018 - [facility] Comments Swelling,Leg Interpretation 03-24-2018 O rthopaedic Swelling Code [place] - [facility] C l[facility] ([id number]) ROS cardiovascular Complains Invalid 03-24-2018 - [facility] E&M Interpretation 03-24-2018 Orth opaedic Code Center - [facility] l[facility] ([id number]) ROS ENT E&M Denies Invalid 03-24-2018 - [facility] Interpretation 03-24-2018 Orth opaedic Code Center - [facility] C linic ([id number]) ROS gastrointestinal Denies Invalid 8 - [facility] E&M Interpretation 03-24-2018 Orth opaedic Code Center - [facility] C linic ([id number]) ROS general E&M Denies Invalid 03-24-2018 - [facility] Interpretation 03-24-2018 Orth opaedic Code Center - [facility] C linic ([id number]) ROS Musculoskeletal Joint Invalid 03-24-2018 - [facility] comments Swelling,Muscl Interpretation 03-24-2018 Orthopaedic e Code Center - Cramps,Muscle Orthop [facility] Weakness,Pain, [facility]ge [facility] Stiffness ([id number]) ROS musculoskeletal Complains Invalid 03-24-2018 - [facility] E&M Interpretation 03-24-2018 Orth opaedic Code Center - [facility] C linic ([id number]) ROS neurological E&M Complains Invalid 8 - [facility] Interpretation 03-24-2018 Orth opaedic Code Center - [facility] C linic ([id number]) ROS Psych comment Difficulty Invalid 03-24-2018 - [facility] Sleeping Interpretation 03-24-2018 Orth opaedic Code Center - [facility] C linic ([id number]) ROS psychiatric E&M Complains Invalid 03-24-2018 - [facility] Interpretation 03-24-2018 Orth opaedic Code Center - [facility] C linic ([id number]) ROS pulmonary E&M Denies Invalid 03-24-2018 - [facility] Interpretation 03-24-2018 Orth opaedic Code Center - [facility] C linic ([id number]) ROS skin E&M Denies Invalid 03-24-2018 - [facility] Interpretation 03-24-2018 Orth opaedic Code Center - [facility] C linic ([id number]) clinical summary: scanned history summar y on 2018-03-24 adl form etoh Wine Invalid 03-24-2018 [facility] alcohol Interpretation - Clini c performance Code 03-24-2018 [facility]opa [facility] Center - [facility] ([id number]) consumes 1 drink per day Invalid 03-24-2018 [facility] three or more Interpretation - C linic drinks of Code 03-24-2018 Orthopaed ic alcohol Center - (beer, wine, Orthopa edic liquor) daily Surgeo ns or almost Clinic daily ([id number]) data entered Yes Invalid 03-24-2018 Maci l by patient, Interpretation - Cli jennie alcohol Code 03-24-2018 Orthopaed ic (ethanol or Center - ETOH) use [facility] ([id number]) data entered No Invalid 03-24-2018 Maci l by patient, Interpretation - Cli jennie drug (of Code 03-24-2018 Orthopaed ic abuse) use Center - [facility] ([id number]) data entered No Invalid 03-24-2018 Maci l by patient, Interpretation - Cli jennie exercise Code 03-24-2018 Orthopaed ic history [place] [facility] ([id number]) data entered Cancer Invalid 03-24-2018 Maci l by patient, Interpretation - Cli jennie father[facility] [place] [facility] ([id number]) Data entered Hernia repairShoulder surgery Invalid 03-24-2018 [facility] by patient, otherCataract surgeryProstrate Interpr etation - Clinic history of surgery Code 03-24-2018 Orthopae dic past Center - surgeries [facility] ([id number]) data entered Diabetes - insulin dependent Invalid 03-24-2018 [facility] by patient, Interpretation - Cli jennie mother's Code 03-24-2018 Orthopaed ic medical Center - history [facility] ([id number]) data entered High blood pressureArthritis Invalid 03-24-2018 [facility] by patient, Interpretation - Cli jennie past medical Code 03-24-2018 Orthop aedic history [place] [facility] ([id number]) father of Invalid 03-24-2018 [facility] patient is Interpretation - Clin ic alive or Code 03-24-2018 Orthopaed ic Center - [facility] ([id number]) medical ArthritisHigh blood pressure Invalid 0 03-24-2018 [facility] history of Interpretation - Clin ic patient's Code 03-24-2018 [facility] ([id number]) medical HyperthyroidismArthritisHigh Invalid 0 03-24-2018 [facility] history of blood pressure Interpretation - Clinic patient's Code 03-24-2018 [facility] ([id number]) mother of Invalid 03-24-2018 [facility] patient is Interpretation - Clin ic alive or Code 03-24-2018 Orthopaed ic [facility] ([id number]) clinical summary: hmspatientid on 2018-03-24 OOP Invalid 03-24-2018 - [facility] Interpretation Code 03-24-2018 [facility] linic ([id number]) Vital Signs Vital Sign Description Value / Unit Date Location The following section is limited to 5 en tries per type and includes entries from the following time range: [id number] - [id number] 3. NEGATED: Highlighted 24.57 kg/m2 06-26-2018 - 06-26-2018 [facility] rowBMI (Body Mass Index) [facility] ([id number]) NEGATED: Highlighted 25.79 kg/m2 03-24-2018 - 03-24-2018 [facility] rowBMI (Body Mass Index) [facility] ([id number]) NEGATED: Highlighted 70 mm[Hg] 06-26-2018 - 06-26-2018 [facility] rowBP Diastolic [facility] ([id number]) NEGATED: Highlighted 80 mm[Hg] 06-26-2018 - 06-26-2018 [facility] rowBP Diastolic [facility] ([id number]) NEGATED: Highlighted 82 mm[Hg] 03-24-2018 - 03-24-2018 [facility] Di[facility] ([id number]) NEGATED: Highlighted 81 mm[Hg] 03-24-2018 - 03-24-2018 [facility] rowBP Diastolic [facility] ([id number]) NEGATED: Highlighted 146 mm[Hg] 06-26-2018 - 06-26-2018 [facility] rowBP Systolic [facility] - [facility] ([id number]) NEGATED: Highlighted 163 mm[Hg] 06-26-2018 - 06-26-2018 [facility] rowBP Systolic [facility] ([id number]) NEGATED: Highlighted 168 mm[Hg] 03-24-2018 - 03-24-2018 [facility] rowBP Systolic [facility] ([id number]) NEGATED: Highlighted 176 mm[Hg] 03-24-2018 - 03-24-2018 [facility] rowBP Systolic [facility] ([id number]) NEGATED: Highlighted 173 cm 06-26-2018 - 06-26-2018 [facility] rowHeight [facility] ([id number]) NEGATED: Highlighted 172.72 cm 06-26-2018 - 06-26-2018 [facility] rowHeight [facility] ([id number]) NEGATED: Highlighted 172.72 cm 03-24-2018 - 03-24-2018 [facility] rowHeight [facility] ([id number]) NEGATED: Highlighted 173 cm 03-24-2018 - 03-24-2018 [facility] rowHeight [facility] ([id number]) NEGATED: Highlighted 55 /min 06-26-2018 - 06-26-2018 [facility] rowPulse (Heart Rate) [facility] ([id number]) NEGATED: Highlighted 47 /min 03-24-2018 - 03-24-2018 [facility] rowPulse (Heart Rate) [facility] ([id number]) NEGATED: Highlighted 73.03 kg 06-26-2018 - 06-26-2018 [facility] rowWeight [facility] ([id number]) NEGATED: Highlighted 73 kg 06-26-2018 - 06-26-2018 [facility] rowWeight [facility] ([id number]) NEGATED: Highlighted 76.66 kg 03-24-2018 - 03-24-2018 [facility] rowWeight [facility] ([id number]) NEGATED: Highlighted 77 kg 03-24-2018 - 03-24-2018 [facility] rowWeight [facility] ([id number]) Encounters Date Type Reason Provider Location 06-26-2018 - Patient encounter Esperanza Shah inic 06-26-2018 [facility] ([id number]) 03-24-2018 - Patient encounter Dinorah Shah in 03-24-2018 procedure [place] [facility] ([id number]) 03-24-2018 - Pt evaluation Dinorah Scott [facility] 03-24-2018 [place] [facility] ([id number]) 06-16-2020 - Refill Degeneration [facility] icine 06-16-2020 lumbar intervertebral Bolaños Wooste r disc Comment: Refill Request Procedures Procedure Name Date Provider Location Antibody screen 09-21-2019 [facility] ([id number]) Comment: Performed By: #### TSCR #### [facility] [id number] [place] [id number] Antibody screen 09-15-2019 [facility] ([id number]) Comment: Performed By: #### TSCR #### [facility] [id number] [phone] Blood pressure outside 06-26-2018 - Esperanza Jenkinsa l Clinic of normal parameters - 06-26-2018 [facility] Orthopaed ic Center - follow-up documented [facility] ([id number]) BMI documented within 06-26-2018 - Esperanza Fletcher [facility] normal parameters - no 06-26-2018 [facility] Orthopaed ic Center - follow-up plan is [facility]opaedic [facility] required Clinic ([id number]) Current medications 06-26-2018 - Esperanza Fletcher [facility] documented 06-26-2018 [facility] Orthopaedic Cent er - [facility]opaedic Surg eons Clinic ([id number]) Pain assessment 06-26-2018 - Esperanza Scott Clini c documented as negative 06-26-2018 [facility] Orthopaed ic Center - - follow-up not Orthopaedic Surg eons required Clinic ([id number]) Tobacco non-user 06-26-2018 - Esperanza Fletcher [facility] 06-26-2018 [facility] Orthopaedic Cent er - [facility]opaedic Surg [facility]ons Clinic ([id number]) Blood pressure outside 03-24-2018 - [facility]orah Con[facility] of normal parameters - 03-24-2018 [facility] Orthopaed ic Center - follow-up documented [facility] ([id number]) BMI documented as 03-24-2018 - Dinorah Scott Cli jennie above normal 03-24-2018 [facility] Orthopaedic Cent er - parameters - follow-up Orthopaed ic Surgeons documented Clinic ([id number]) Current medications 03-24-2018 - Dinorah Scott C linic documented 03-24-2018 [facility] Orthopaedic Cent er - Orthopaedic Surg eons Clinic ([id number]) Pain assessment 03-24-2018 - Dinorah Scott Clini c documented as positive 03-24-2018 [facility] Orthopaed ic Center - - follow-up documented Orthopaed ic Surgeons Clinic ([id number]) Tobacco non-user 03-24-2018 - Dinorah [facility] Clin ic 03-24-2018 [facility] Orthopaedic [facility] er - Orthopaedic Surg ns Clinic ([id number]) Plan of Treatment Plan Description Date Location LIPID SCREEN LIPID SCREEN 11-17-2024 [facility] ([id number]) DIABETES SCREEN DIABETES SCREEN 11-17-2022 [facility] ([id number]) DTAP,TDAP,TD (2 - Td) DTAP,TDAP,TD (2 - Td) 08-09-2021 [facility] (06941) BP CONTROLLED (<130/80) BP CONTROLLED (<130/80) 04-01-2021 [facility] ([id number]) ANNUAL PCP TEAM CHRONIC ANNUAL PCP TEAM CHRONIC 03-08-2021 [facility] DISEASE VISIT DISEASE VISIT ([id number]) INFLUENZA (#1) INFLUENZA (#1) 2020 [facility] (60381) Appointment Appointment 06-26-2018 - [facility] 06-26-2018 [facility] ([id number]) Appointment Appointment 03-24-2018 - [facility] 03-24-2018 Orthopa[facility] er - [facility]opaedic Surg [facility] ([id number]) SHINGRIX VACCINE (2 of SHINGRIX VACCINE (2 of 09-17-2015 [facility] 3) 3) (28896) ADVANCE DIRECTIVE ADVANCE DIRECTIVE 02-22-2005 [facility] inic DISCUSSION DISCUSSION (02841) Patient education \[email or web address] [facility] Clinic on\[email or web address].pdf Orthopaedic Cent er - Orthopaedic Surg [facility] (35780) Immunizations Vaccine Notes Status Date Location Influenza Vaccine, influenza virus (completed) 08-31-2013 [facility] Split-Non Spec vaccine, unspecified (4419 5) formulation Influenza Vaccine, influenza virus (completed) 08-11-2012 [facility] Split-Non Spec vaccine, unspecified (4419 5) formulation Influenza Vaccine, influenza virus (completed) 08-09-2011 [facility] Split-Non Spec vaccine, unspecified (4419 5) formulation Influenza Seasonal - influenza, high dose (completed) 08-17-2019 [facility] High Dose - Age 65+ seasonal, (25902) preservative-free Influenza Seasonal - influenza, high dose (completed) 06-19-2018 [facility] High Dose - Age 65+ seasonal, (86923) preservative-free Influenza Seasonal - influenza, high dose (completed) 07-05-2016 [facility] High Dose - Age 65+ seasonal, (45024) preservative-free Influenza Seasonal - influenza, high dose (completed) 07-24-2014 [facility] High Dose - Age 65+ seasonal, (41815) preservative-free Influenza Seasonal influenza, seasonal, (completed) 07-23-2015 [facility] Inj Age 3+ injectable (84897) No information No information (completed) [facility] jennie available. available. Orthopaedic [address] - Orthopaedic Surgeons [facility] (27137) Pneumococcal-13 Vac pneumococcal conjugate (completed) 09-19-2015 [facility] Conjugate vaccine, 13 valent (76709) Pneumovax pneumococcal (completed) 03-19-2007 [facility] polysaccharide vaccine, (441 95) 23 valent Tdap (Age 7+) tetanus toxoid, reduced (completed) 08-09-2011 [facility] diphtheria toxoid, and (4419 5) acellular pertussis vaccine, adsorbed Zostavax zoster vaccine, live (completed) 07-23-2015 [facility] ([id number]) Payers Payer Name Policy Number Location [employer] [id number] [facility] ([id number] [phone]) The following information is from the original human readable contentNo Payer Records FoundNo Payer Records FoundNo Payer Records FoundNo Payer Records FoundNo Payer Records Found Social History Type Social History Date Location Description NEGATED: Highlighted DRUG USE No 03-24-2018 - [facility] jennie rowDetails of drug misuse 03-24-2018 [facility] Surg eons [facility] (81775) History of tobacco use Cigarette Smoker [facility] (35143) NEGATED: 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 03-24-2018 Orthopaedic [facility] Orthopaedic Surg eons [facility] ([id number]) NEGATED: Highlighted Former smoker 03-24-2018 - [facility] jennie rowAssertion 03-24-2018 Orthopa[facility]edic Surg [facility] (14703) Assertion Unknown if ever smoked 06-26-2018 - [facility] 06-26-2018 [facility] Orthopaedic Surg ns [facility] (72964) Tobacco smoking status Current every day 04-01-2020 [facility] smoker (38551) NEGATED: Highlighted ETOH USE Yes 03-24-2018 - [facility] jennie rowAlcohol use 03-24-2018 [facility]edic [facility]urg [facility] (53346) Tobacco use and exposure Never used 04-01-2020 [facility] (02752) Alcohol intake Current drinker of 04-01-2020 [facility] jennie alcohol (finding) (89262) Alcohol intake 04-01-2020 [facility] (76548) Tobacco Comment 2-3 per day 09-18-2019 [facility] (34998) Alcohol Comment 1/2 oz at night 11-07-2016 [facility] (56714) Sex Assigned At Not on file [facility] (54497) The following information is from the original human readable contentNo Social History Records FoundNo Social History Records FoundNo Social History Records FoundNo Social History Records FoundNo Social History Records Found Medical Equipment Equipment Code (if Equipment Original Equipment Procedure Code D ates provided) Text (if provided) Identifier (if (if provided) provided) Patch Xenosure [id number] 09-21-2019 Bovine Pericardium [id number] Vascular Sterile Disposable - [id number] Instructions Instruction Description Start Date CompletedPlease follow-up with Primary Care Physician or Database Management System Specialist for treatment or adjustment of medication regarding elevat ed blood pressure.Patient advised to follow-up with Primary Car e Physician for BMI management. Instruction Description Start Date CompletedPlease follow-up with Primary Care Physician or Database Management System Specialist for treatment or adjustment of medication regarding elevat ed blood pressure. 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 Family History There may be information available, but it has not been provided by the sender.There may be information available, but it has not been provided by the sender.No Family History Records FoundNo Family History Records FoundNo Family History Records Found Summary Purpose History of Past Illness Problem Noted Date Resolved Date Leucocytosis 09/25/2019 11/19/2019 Last Assessment & Plan: Resolved was Likely reactive No fever, no signs of infection Anemia 09/24/2019 11/19/2019 Last Assessment & Plan: hgb stable Slight drop in hemoglobin after the proc edure Secondary to intra op blood loss Acute respiratory failure with hypoxia 09/24/2019 0 11/19/2019 Last Assessment & Plan: Was requiring 4 lt of oxygen On room air now Chest x ray was clear Was likely atelectasis Continue incentive spirometry Traumatic complete tear of left rotator cuff 11/03/2018 11/19/2019 Overview: [facility] Inguinal hernia 01/20/2018 06/20/2018 Overview: Added automatically from request for elda becky [id number] Clostridium difficile colitis 05/14/2017 06/20/2018 Right-sided low back pain with right-sided sciatica 10/03/20 15 05/15/2016 Rotator cuff impingement syndrome of right shoulder 04/10/20 15 11/19/2019 Medicare annual wellness visit, subsequent 04/10/2015 06/20/2018 Inguinal neuralgia 03/12/2013 11/07/2016 Diarrhea 12/05/2010 09/06/2014 Frequency of urination 10/02/2010 11/07/2016 Malignant neoplasm of prostate 02/07/2010 7 Overview: Dr. Littlejohn- oncologist at [facility] er Rotator cuff (capsule) sprain 09/20/2009 11/07/2016 Inguinal hernia without mention of obstruction or gangrene, 10/11/2008 11/07/2016 unilateral or unspecified, (not specified as recurrent) Umbilical hernia without mention of obstruction or gangrene 10/11/2008 11/07/2016 Unspecified disorder of prostate 06/21/2007 014 Ganglion of tendon sheath 03/19/2007 11/07/2016 HYPERTENSION NOS 09/02/2006 03/29/2014 Last Assessment & Plan: HTN: Mr. Vazquez indicates that he is feeling well and denies any symptoms referable to elevated blood pressure. Specifically denies headache, chest pain, palpitations and dyspnea. Patient denies any yady e effects of his medication(s) and is co mpliant with their regimen. 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 He does check BP's away fro m this office with average BP's in the 1 201/71 range. Tye denies regular aerobic exercise. He watches his diet for sodium, low fat and low cholesterol some of the time. Last 3 Encounter BP Readings: Date: BP: 05/09/2011 148/86- just took BP meds th is am 02/22/2011 140/98 02/15/2011 118/70 Dermatophytosis of foot 11/27/2005 06/14/2017 Additional Source Comments FOR RECORDS PERTAINING TO PATIENTS WHO ARE OR HAVE BEEN ENROLLED IN A CHEMICAL DEPENDENCY/SUBSTANCE ABUSE PROGRAM, SOME INFORMATION MAY BE OMITTED. This clinical summary was aggregated from multiple sources. Caution should be exercised in using it in the provision of clinical care. This summary normalizes information from multiple sources, and as a consequence, information in this document may materially changethe coding, format and clinical context of patient data. In addition, data may be omittedin some cases. CLINICAL DECISIONS SHOULD BE BASED ON THE PRIMARY CLINICAL RECORDS. [employer] [facility] provides no warranty or guarantee of the accuracy or completeness of information in this document. UNRECOGNIZED CONTENT PROVIDED BELOW FOR UNRECOGNIZED SECTION No Status Records FoundNo Status Records FoundNo Status Records Found UNRECOGNIZED CONTENT PROVIDED BELOW FOR UNRECOGNIZED SECTION INFORMATION SOURCE DATE CREATED AUTHOR AUTHOR'S ORGANJENNIFERATIO N 10/06/2019 [facility] DATE CREATED AUTHOR AUTHOR'S ORGANIZATIO N 02/27/2020 [facility] DATE CREATED AUTHOR AUTHOR'S ORGANIZATIO N 06/17/2020 [facility] UNRECOGNIZED CONTENT PROVIDED BELOW FOR UNRECOGNIZED SECTION Source Comments In the event this information is protected by the Federal Confidentiality of Alcohol and Drug Abuse Patient Records regulations: The Federal rules restrict any use of the information to criminally investigate or prosecute any alcohol or drug abuse patient.[facility] UNRECOGNIZED CONTENT PROVIDED BELOW FOR UNRECOGNIZED SECTION Reason for Visit Reason Onset Date Comments Refill Request 06/16/2020 UNRECOGNIZED CONTENT PROVIDED BELOW FOR UNRECOGNIZED SECTION Miscellaneous Notes Telephone Encounter - Talon Bolaños - 06/16/2020 3:45 PM EDT Patient's request for medication is as follows Signed Prescriptions Disp Refills gabapentin (NEURONTIN) 300 mg capsule 60 capsule 2 Sig: Take 2 capsules by mouth daily at bedtime for 180 days. SAY: No Authorizing Provider: TALON BOLAÑOS Annual Medicare Wellness: with Precious in 1 month. Follow up with me in 3 months. Talon Bolaños MD elephone Encounter - Liv Molina LPN - 06/16/2020 3:03 PM EDT Patient has been identified by name and date of : Yes Patient phones for refill(s): Pending Prescriptions Disp Refills GABAPENTIN 300 MG CAPSULE 60 capsule 0 Sig: Take 2 capsules by mouth daily at bedtime for 180 days. SAY: No Date of last office visit in primary care: 03/08/2020 No future appt scheduled. Liv Molina LPN Telephone Encounter - Chasity Ross - 06/16/2020 12:26 PM EDT Patient has been identified by name and date of : Yes Pending Prescriptions Disp Refills GABAPENTIN 300 MG CAPSULE 60 capsule 5 Sig: Take 2 capsules by mouth daily at bedtime for 180 days. 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 Patient requesting a call when RX is approved and sent to the pharmacy. Please call patient at: cell Chasity Abebe documented in this encounter
--- OUTSIDE RECORDS SUMMARY | 2020-07-26 16:45 | XMS RPT_ITS | CCD ---
:1940 External Reference #:[id number] Author Organization [facility] Care Team Providers Name Role Phone Jorge L Salazar Unavailable Chance PARR Unavailable Thang Bolaños Primary Care Provider Medications Medication Name Sig Date Prescriber Location acetaminophen / TYLENOL PM EXTRA 05-22-[address] [facility] diphenhydrAMINE STRENGTH 500-25 MG Orthop aedic TABS 1-2 tablets Center - every 6 hours as Orthopaedic needed for pain Surgeons Cli jennie ([id number]) DIPHENHYDRAMINE-APA P (SLEEP) [id number] Dieter Malone Vazquez amLODIPine amLODIPine 11-19-[address] [facility] 10 mg Bolaños Orthopaedic tablet Indications: Center - Essential Orthopaedic hypertension Take 1 [facility] tablet by mouth (51053) once daily. 90 tablet 3 11/19/2019 Active AMLODIPINE BESYLATE 10 MG TABS 1 03-24-2018 [facility] - tablet daily AMLODIPINE [facility] (55600) BESYLATE [phone] Dinorah Conley LEGAL AIDE-SERICULTURE TEACHER Comment: Take 1 tablet by mouth once daily. aspirin ASPIRIN LOW DOSE 81 MG ORAL 03-24-[address] [facility] Orthopaedic TABLET 1 tablet daily Center - Orthopaedic Surgeons ASPIRIN [id number] Dinorah Coats [facility] (21918) Yael [facility] aspirin, enteric coated (ASPIRIN, Ccf Provider [facility] - ENTERIC COATED) 81 mg EC tablet Orthopaedic [facility] (69886) Take 81 mg by mouth once daily. 0 Active Comment: Take 81 mg by mouth once prakash ly. atorvastatin atorvastatin (LIPITOR) 11-19-[address] Talon [address] [facility] 10 mg tablet [address] - Indications: Mixed Orthopaed ic Surgeons hyperlipidemia Take 1 Clinic (19699) tablet by mouth once daily. 90 tablet 3 11/19/2019 Active ATORVASTATIN CALCIUM 10 MG TABS 1 03-24-[address] [facility] Orthopaedic [place] - tablet daily ATORVASTATIN Orthopaedic Surgeons [facility] (55844) CALCIUM [id number] Dinorah Coats [place] LEGAL AIDE-[facility] Comment: Take 1 tablet by mouth once daily. CORAL CALCIUM CAPS CORAL CALCIUM CAPS 1 03-24-2018 [facility] tablet daily Orthopaedic [facility] - CALCIUM CAPS Orthopaedic [phone] Dinorah Surgeon s [facility] (69762) CORAL CALCIUM CAPS CORAL CALCIUM CAPS 1 03-24-2018 [facility] tablet daily Orthopaedic [facility] - CALCIUM CAPS Orthopaedic [phone] Dinorah [facility] (82599) cyclobenzaprine CYCLOBENZAPRINE HCL 03-24-2018 [facility] 10 MG TABS 1 tablet Orthopae dic twice a day Center - Orthopaedic CYCLOBENZAPRINE HCL [facility] [phone] Dinorah Coats (63402) [place] LEGAL AIDE[facility] diclofenac DICLOFENAC SODIUM 75 03-24-[address] [facility] MG TBEC 1 tablet Orthopaedic twice daily Center - DICLOFENAC Orthop aedic SODIUM [id number] Surgeons [facility] Dinorah [facility] (01677) [facility] gabapentin gabapentin 10-06-2019 - [facility] (NEURONTIN) 300 mg 12-13-2020 Miky Orthopaed ic capsule Indications: Center - DDD (degenerative Orthopaedi c disc disease), lumbar Surgeo ns Clinic Take 2 capsules by (55885) mouth daily at bedtime for 180 days. 60 capsule 2 06/16/2020 12/13/2020 Active GABAPENTIN 300 MG CAPS one tablet at 05-22-[address] [facility] Orthopaedic Center - night GABAPENTIN Orth opaedic Surgeons [facility] (13123) [phone] Dieter Vazquez DO Comment: Take 2 capsules by mouth prakash ly at bedtime for 180 days. hydroCHLOROthiazide / LISINOPRIL-HYDROCHLOROTHIAZIDE 03-24-2018 [facility] lisinopril 20-12.5 MG TABS 1 tablet daily Clinic Orthopaedic LISINOPRIL-HYDROCHLOROTHIAZIDE [place] - [phone] Dinorah Coats [facility] (32244) lisinopril lisinopril (ZESTRIL, PRINIVIL) 11-19-2019 Talon Desir [facility] 40 mg tablet Indications: Bolaños Cl inic Essential hypertension Take 1 Orthopaedic tablet by mouth once daily. 90 Center - tablet 3 11/19/2019 Active O rthopaedic [facility] (87325) LISINOPRIL 20 MG TABS 1 tablet daily 03-24-2018 [facility] - LISINOPRIL [phone] [facility]edic [facility] (66996) Dinorah Coats [facility] Comment: Take 1 tablet by mouth once daily. methylprednisoLONE MEDROL 4 MG TBPK Take by 03-24-[address] [facility] mouth daily [facility] directed [facility] - METHYLPREDNISOLONE Orthopaed ic [phone] Dinorah Coats Surgeon [facility] (03114) metoprolol metoprolol tartrate, 11-19-[address] [facility] short acting, Bolaños Orthopaedic (LOPRESSOR) [address] - Indications: Essential Ortho paedic hypertension Take 1 [facility] tablet by mouth twice (01630 ) daily. 180 tablet 3 11/19/2019 Active METOPROLOL TARTRATE 50 MG TABS 1 03-24-2018 [facility] - tablet twice daily [facility] (30722) METOPROLOL TARTRATE [phone] Dinorah Coats [facility] Comment: Take 1 tablet by mouth twice daily. omeprazole omeprazole (PRILOSEC) 20 11-19-2019 Talon Waltersasqu ez [facility] mg capsule Indications: Orth [facility] - Gastroesophageal reflux [facility]geons disease, esophagitis Clinic (19343) presence not specified Take 1 capsule by mouth once daily. 90 capsule 3 11/19/2019 Active OMEPRAZOLE 20 MG CPDR 1 tablet daily 03-24-2018 [facility] - OMEPRAZOLE [id number] Orthopaedic Surgeons [facility] (35129) Dinorah Coats [facility] Comment: Take 1 capsule by mouth once daily. oxyCODONE OXYCODONE HCL 5 MG 06-26-2018 - [place] [facility] CAPS 1 tablet 07-11-2018 [facility] Orthopaedic Ce nter every 6 hours as LEGAL AIDE-SERICULTURE TEACHER - Orthopaed ic needed Surgeons C linic (79181) OXYCODONE HCL [phone] [place] Chance LEGAL AIDE-SERICULTURE TEACHER potassium POTASSIUM CHLORIDE 03-24-2018 [facility] C linic chloride 20 MEQ PACK 1 Orthopaedic Ce nter tablet daily - Orthopaedic Surgeons [facility] POTASSIUM CHLORIDE (28836) [phone] Dinorah Conley LEGAL AIDE[facility] POTASSIUM CHLORIDE 20 MEQ PACK 1 03-24-2018 [facility] Orthopaedic Center - tablet daily POTASSIUM Orthopaedic Surgeons [facility] (25303) CHLORIDE [phone] Dinorah Conley LEGAL AIDE[facility] traMADol TRAMADOL HCL 50 MG TABS 1 03-24-2018 Cr ystal [facility] Orthopaedic tablet every 8 hours as needed Center - Orthopaedic [facility]OL [facility]CL [facility] (19298[facility] [phone] Dinorah Conley LEGAL AIDE[facility] triamcinolone TRIAMCINOLONE ACETONIDE 0.5 % 03-24-[address] [facility] Orthopaedic CREA apply to skin twice daily Center - Orthopaedic TRIAMCINOLONE [facility] (64467) ACETONIDE [phone] Dinorah Conley LEGAL AIDE[facility] Problems Active Problems Category Problem Name Status Date Location Cancer of prostate Malignant tumor of Active [facility] prostate (87608) Disorders of lipid Mixed hyperlipidemia Active 09-02-2006 - [facility] metabolism (93335) Esophageal disorders Gastroesophageal reflux Active - [facility] disease (70948) Essential hypertension Essential hypertension Active 10-16-19 16 - [facility] (97588) Other aftercare Surgical follow-up Active 06-26-2018 [facility] - Orthopaedic [facility] (47732) Peripheral and visceral Peripheral vascular Active 07-22-2019 - [facility] atherosclerosis disease (09934) Residual codes; Tobacco user Active 05-23-2010 - [facility] unclassified (84623) Spondylosis; Low back pain Active 11-07-2016 - 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 (41268) canal Residual codes; Insomnia Completed 09-22-2019 - [facility] unclassified (17968) Unclassified Problem [facility]opa[facility] [address] - Orthopaedic [facility] (04150) Results Result Name Value Range Unit Interpretation Flag Date Location obsolete on 2020-06 OBSOLETE Refill (INTMWS) Normal 06-16-2020 [facility] TYE VAZQUEZ ([id number]) 1940 M [facility] Time Provider Department (57455) 06/16/20 TALON BOLAÑOS INTBROOKE During your visit [...] Date Reviewed: 04/01/2020 Reviewed by: Carline Pollock (W[employer] Sp[employer] Regulatory Affairs Portfolio Leader) Lu - Fully Assessed Reason for Visit: [...] cuff [S*11/03/2018 0 11/19/2019 More... Atherosclerosis of [place]ominee artery of left lower *07/22/2019 More... PAD [...] OBSOLETE Refill (INTMWS) Normal 05-02-2020 [place] pinky [facility] TYE VAZQUEZ ([id number]) 1940 [facility] Date Time Provider Department (59130) 05/02/20 TALON BOLAÑOS INTMWS During your visit [...] 3:35 PM Signed These were sent to [facility] a ye ar supply to [facility] michael 11/19/2019. Telephone call to [facility] they will get these ready for nel alcala to fruit or nut picker. Allergies As of Date: 05/02/2020 (No Known Allergies) Date Reviewed: 04/01/2020 Reviewed by: Carline Pollock ([employer] Regulatory Affairs Portfolio Leader) Lu - Fully Assessed Reason for Visit: [...] cuff [S*11/03/2018 0 11/19/2019 More... Atherosclerosis of menominee artery of left lower *07/22/2019 More... PAD (peripheral artery disease) (HCC) [I73.9] 09/21/2019 Other insomnia [G47.09] 09/22/2019 More... Anemia [D64.9] 09/24/2019 11/19/2019 More... Acute respiratory failure with hypoxia (HCC) [J*09/24/2019 0 11/19/2019 More... Leucocytosis [D72.829] 09/25/2019 11/19/2019 More... Encounter Status:Closed by PRIYA OLIVIER CMA on 05/02/20 urine culture on 02-04-19 Bacteria Sp. Request/Comment: - Specimen received in preservative Critically 04-01-2020 [place] identified Cx Culture Result - >=100,000 C FU/ml Escherichia coli --> ABNORMAL ALERT abnormal Clinic Nom (U) ORGANISM: Escherichia coli [place] METHOD: Minimum inhibitory concentration(Vitek) (01922) Antibiotic Interp NIYA Status Ampicillin RESISTANT >=32 [...] F Comment: Performed By: #### URCUL ### #[facility] [place], [place] [phone] progress on 2020-03 PROGRESS HNO ID: [id number] Normal 04-01-2020 [facility] Author: Carline Pollock ([employer] Regulatory Affairs Portfolio Leader) Lu [place] ([id number]) Service: ? Author Type: Nurse Practitioner Type: [...] Laterality Date - COLONOSCOP W/ OR [facility] SPEC 04/26/2014 Colonoscopy - COLONOSCOP W/ OR W/O [facility] SPEC 05/07/16 Colonoscopy - COLONOSCOPY AND POLYPECTOMY 05/15/10 tubular adenomas removed- [place] - LAMINECTOMY,>2 SGMT,LUMBAR 06/11/2018 [facility] [place] - PAST SURGICAL HISTORY OF 2001 bilat [...] 2020-04-01 CNOV Office Visit (UCWSTR) Normal 04-01-20 [place] [facility] TYE VAZQUEZ ([id number]) 1940 [facility] Date Time Provider Department ([id number]) 04/01/20 3:30 PM CARLINE LEIGH (LEGAL AIDE, SERICULTURE TEACHER)UCWSTR During your visit today, we recorded the following informati on about you: Temperature Pulse Respiration Blood pressure 99.7 degrees 70/minute 16/minute 112/64 Weight 70.8 kg Carline Leigh APRN.SERICULTURE TEACHER 04/01/2020 3:56 PM Signed Urinary Tract Infections [...] 8 million to 10 million visits to [facility] are for urinary tract infections. Who [...] fever, back pain and vomiting. Carline Leigh APRN.SERICULTURE TEACHER 04/01/2020 4:44 PM Signed Subjective HPI Tye [...] tear of left rotator cuff 11/03/2018 [facility]. - Umbilical hernia without mention of obstruction or gangren e 10/11/2008 PAST SURGICAL HISTORY Procedure Laterality Date - COLONOSCOP W/ OR W/O [facility] SPEC 04/26/2014 Colonoscopy - COLONOSCOP W/ OR W/O [facility] SPEC 05/07/16 Colonoscopy - COLONOSCOPY AND POLYPECTOMY 05/15/10 tubular adenomas removed- [place] - LAMINECTOMY,>2 SGMT,LUMBAR 06/11/2018 [facility] [place] - PAST SURGICAL HISTORY OF 2002 bilat [...] and symptoms. All questions addressed. Carline Leigh APRN.SERICULTURE TEACHER Referring Provider: SELF [[id number]] Allergies As of Date: 04/01/2020 (No Known Allergies) Date Reviewed: 04/01/2020 Reviewed by: Carline Pollock ([employer] Regulatory Affairs Portfolio Leader) Lu - Fully Assessed Reason for Visit: Low Back Pain [126] Cmt: episode of hematuria, burning with urination x 3 days Reason For Visit History Recorded Primary Visit Diagnosis:Gross hematuria [R31.0] Other Visit Diagnosis:Acute midline low back pain without sc iatica [M54.5] Order(s):UA DIP, URINE (POC) [8884624] Order #: [id number] ec. #:[id number] URINE CULTURE [SQURCUL] Order #: [id number] ciprofloxacin HCl (CIPRO) 500 mg tabletTake 1 [...] cuff [S*11/03/2018 0 11/19/2019 More... Atherosclerosis of menominee artery of left lower *07/22/2019 More... PAD [...] 8 million to 10 million visits to [facility] are for urinary tract infections. Who [...] 04/01 progress on 2020-02 PROGRESS HNO ID: [id number] Normal 03-09-2020 [facility] Author: Aron Mena [place] ([id number]) Service: ? Author Type: Physician Type: Progress Notes Filed: 03/09/2020 11:47 AM Note Text: [facility] [place] [facility] OUTPATIENT VISIT DATE March 09, 2020 OUTPATIENT VISIT TYPE EST PRIMARY CARE PHYSICIAN: Talon Bolaños MD [address] [place] [address] REFERRING PHYSICIAN Aron Mena MD [address] [facility] [address] CHIEF COMPLAINT: Patient presents with: Established Patient [...] per day. DUS arterial show patent left MANTEL CRAFTSMAN/SFA/PFA, occluded left pop liteal artery. Diffuse tibial [...] tear of left rotator cuff 11/03/2018 [facility]. - Umbilical hernia without mention of obstruction or gangren e 10/11/2008 PAST SURGICAL HISTORY Procedure Laterality Date - COLONOSCOP W/ OR W/O [facility] SPEC 04/26/2014 Colonoscopy - COLONOSCOP W/ OR W/O [facility] SPEC 05/07/16 Colonoscopy - COLONOSCOPY AND POLYPECTOMY 05/15/10 tubular adenomas removed- [place] - LAMINECTOMY,>2 SGMT,LUMBAR 06/11/2018 [facility] - PAST SURGICAL HISTORY OF 2001 [...] 2020-03-09 CNOV Office Visit (KADEND) Normal 03-09-20 [place] [facility] TYE VAZQUEZ ([id number]) 1940 M [place] Date Time Provider Department ([id number]) 03/09/20 11:30 AM ARON MENA During your visit today, we recorded the following informati on about you: Pulse Blood pressure Weight 98/minute 140/72 72.8 kg Aron Mena MD 03/09/2020 11:47 AM Signed [facility] OUTPATIENT VISIT DATE March 09, 2020 OUTPATIENT VISIT TYPE EST PRIMARY CARE PHYSICIAN: Talon Bolaños MD [address] [place] [address] REFERRING PHYSICIAN Aron Mena MD [address] [facility] [address] CHIEF COMPLAINT: Patient presents with: Established Patient [...] per day. DUS arterial show patent left MANTEL CRAFTSMAN/SFA/PFA, occluded left pop liteal artery. Diffuse tibial [...] tear of left rotator cuff 11/03/2018 [facility]. - Umbilical hernia without mention of obstruction or gangren e 10/11/2008 PAST SURGICAL HISTORY Procedure Laterality Date - COLONOSCOP W/ OR W/O [facility] SPEC 04/26/2014 Colonoscopy - COLONOSCOP W/ OR W/O [facility] SPEC 05/07/16 Colonoscopy - COLONOSCOPY AND POLYPECTOMY 05/15/10 tubular adenomas removed- [place] - LAMINECTOMY,>2 SGMT,LUMBAR 06/11/2018 [facility] - PAST SURGICAL HISTORY OF 2001 [...] Aron Mena MD Referring Provider: ARON MENA [[id number]] Allergies As of Date: 03/09/2020 (No Known Allergies) Date Reviewed: 03/09/2020 Reviewed by: Leena Schmitz MA - Fully Assessed Reason for Visit: Established Patient Follow-Up [[id number]] Cmt: Test Results Primary Visit Diagnosis:PAD (peripheral artery disease) (HCC ) [I73.9] Other Visit Diagnoses:Smoker [F17.200] Atherosclerosis of menominee artery of both lower extremities with intermittent [...] cuff [S*11/03/2018 0 11/19/2019 More... Atherosclerosis of menominee artery of left lower *07/22/2019 More... PAD [...] 03/09/20 progress on 2020-02 PROGRESS HNO ID: [id number] Normal 03-08-2020 [facility] Author: Talon Bolaños [place] ([id number]) Service: ? Author Type: Physician Type: Progress Notes Filed: 03/08/2020 4:35 PM Note Text: This note was created using [email or web address]. Subjective This Team Access Model visit is [...] Galvan's Cyst and was treated with one [place] and compression. Swelling is down, and pain w as down to 4/10 at this time. He requested some [place] to have on hand j ust in [...] Ddd (Degenerative Disc Disease), Lumbar Atherosclerosis of [place] Artery of Left Lower Extremity Wit h [...] on 2020-03-08 CNPN Telephone (INTMWS) Normal 03-08-2020 [place] [facility] TYE VAZQUEZ ([id number]) 1940 M [place] Date Time Provider Department (46139) 03/08/20 TALON BOLAÑOS INTJorge LWS During your visit today, we recorded the following informati on about you: Tom Li 03/08/2020 11:29 AM Signed Patient calls requesting pain medication. Says thang loco was in [facility] ER yesterday for c/o right leg pain and swelling. US negative for DVT;s tates he was diagnosed with a Bakers cyst. Per ER record terri cook was given 1 tab of [place] and advised to f/up with ortho. Patient [...] cuff [S*11/03/2018 0 11/19/2019 More... Atherosclerosis of menominee artery of left lower *07/22/2019 More... PAD (peripheral artery disease) (HCC) [I73.9] 09/21/2019 Other insomnia [G47.09] 09/22/2019 More... Anemia [D64.9] 09/24/2019 11/19/2019 More... Acute respiratory failure with hypoxia (HCC) [J*09/24/2019 0 11/19/2019 More... Leucocytosis [D72.829] 09/25/2019 11/19/2019 More... Encounter Status:Closed by LIV MOLINA LPN on 03/08/20 obsolete on 2020-02 OBSOLETE Refill (AGCARDPOB) Normal 02-20-2020 [place] TYE Cabello ([id number]) 1940 M Medical Date Time Provider Department Center 02/20/20 LYNNETTE BEEBE AGCARDPOB ([id number]) During your visit today, we recorded the [...] cuff [S*11/03/2018 0 11/19/2019 More... Atherosclerosis of menominee artery of left lower *07/22/2019 More... PAD (peripheral artery disease) (HCC) [I73.9] 09/21/2019 Other insomnia [G47.09] 09/22/2019 More... Anemia [D64.9] 09/24/2019 11/19/2019 More... Acute respiratory failure with hypoxia (HCC) [J*09/24/2019 0 11/19/2019 More... Leucocytosis [D72.829] 09/25/2019 11/19/2019 More... Encounter Status:Closed by SERA ADHIKARI on 02/22/20 [facility]pn [facility]) [facility]-19-2020 [place] [facility] TYE VAZQUEZ ([id number]) 1940 [facility] Date Time Provider Department ([id number]) 02/19/20 TALON BOLAÑOS INTMWS During your visit [...] - Fully Assessed Reason for Visit: Question [7787] Prescriptions as of 02/19/2020 Sig: CILOSTAZOL 50 [...] cuff [S*11/03/2018 0 11/19/2019 More... Atherosclerosis of menominee artery of left lower *07/22/2019 More... PAD (peripheral artery disease) (HCC) [I73.9] 09/21/2019 Other insomnia [G47.09] 09/22/2019 More... Anemia [D64.9] 09/24/2019 11/19/2019 More... Acute respiratory failure with hypoxia (HCC) [J*09/24/2019 0 11/19/2019 More... Leucocytosis [D72.829] 09/25/2019 11/19/2019 More... Encounter Status:Closed by MERLENE EVANS RN on 02/19/20 cnpn on 2020-02-02 CNPN Telephone (INTMWS) Normal 02-02-2020 [place] [facility] TYE VAZQUEZ ([id number]) 1940 M [place] Date Time Provider Department ([id number]) 02/02/20 TALON BOLAÑOS INTMWS During your visit [...] - Fully Assessed Reason for Visit: Question [8837] Prescriptions as of 02/02/2020 Sig: CILOSTAZOL 50 [...] cuff [S*11/03/2018 0 11/19/2019 More... Atherosclerosis of menominee artery of left lower *07/22/2019 More... PAD (peripheral artery disease) (HCC) [I73.9] 09/21/2019 Other insomnia [G47.09] 09/22/2019 More... Anemia [D64.9] 09/24/2019 11/19/2019 More... Acute respiratory failure with hypoxia (HCC) [J*09/24/2019 0 11/19/2019 More... Leucocytosis [D72.829] 09/25/2019 11/19/2019 More... Encounter Status:Closed by MERLENE EVANS RN on 02/02/20 obsolete on 2020-01 OBSOLETE Refill (AGCARDPOB) Normal 01-28-2020 [facility] VAZQUEZTYE ([id number]) 1940 M Medical Date Time Provider Department Center 01/28/20 LYNNETTE BEEBE ([id number]) During your visit today, we recorded the following informati on about you: Lual Herrera 01/29/2020 8:35 AM Signed Patient's request [...] cuff [S*11/03/2018 0 11/19/2019 More... Atherosclerosis of menominee artery of left lower *07/22/2019 More... PAD (peripheral artery disease) (HCC) [I73.9] 09/21/2019 Other insomnia [G47.09] 09/22/2019 More... Anemia [D64.9] 09/24/2019 11/19/2019 More... Acute respiratory failure with hypoxia (HCC) [J*09/24/2019 0 11/19/2019 More... Leucocytosis [D72.829] 09/25/2019 11/19/2019 More... Encounter Status:Closed by DEBBIE LULA on 01/29/20 progress on 2019-11 PROGRESS HNO ID: [id number] Normal 12-09-2019 [facility] Author: Aorn Mena [place] ([id number]) Service: ? Author Type: Physician Type: Progress Notes Filed: 12/09/2019 2:23 PM Note Text: [facility] OUTPATIENT VISIT DATE December 09, 2019 OUTPATIENT VISIT TYPE ESTABLISHED PRIMARY CARE PHYSICIAN: Talon Bolaños MD [address] [place] [address] REFERRING PHYSICIAN SELF CHIEF COMPLAINT: Patient presents [...] tear of left rotator cuff 11/03/2018 [facility]. - Umbilical hernia without mention of obstruction or gangren e 10/11/2008 PAST SURGICAL HISTORY Procedure Laterality Date - COLONOSCOP W/ OR W/O [facility] SPEC 04/26/2014 Colonoscopy - COLONOSCOP W/ OR W/O [facility] SPEC 05/07/16 Colonoscopy - COLONOSCOPY AND POLYPECTOMY 05/15/10 tubular adenomas removed- [place] - LAMINECTOMY,>2 SGMT,LUMBAR 06/11/2018 [facility] [place] - PAST SURGICAL HISTORY OF 2001 bilat [...] 2019-12-09 CNOV Office Visit (VASSMD) Normal 12-09-[address] [place] [address] [facility] TYE VAZQUEZ ([id number]) 1940 M [place] Date Time Provider Department ([id number]) 12/09/19 1:30 PM ARON MENA During your visit today, we recorded the following informati on about you: Pulse Blood pressure Weight Height 80/minute 130/74 74.4 kg 1.702 m Aron Mena MD 12/09/2019 2:23 PM Signed [facility] OUTPATIENT VISIT DATE December 09, 2019 OUTPATIENT VISIT TYPE ESTABLISHED PRIMARY CARE PHYSICIAN: Talon Bolaños MD [address] [place] [address] REFERRING PHYSICIAN SELF CHIEF COMPLAINT: Patient presents [...] tear of left rotator cuff 11/03/2018 [facility]. - Umbilical hernia without mention of obstruction or gangren e 10/11/2008 PAST SURGICAL HISTORY Procedure Laterality Date - COLONOSCOP W/ OR W/O [facility] SPEC 04/26/2014 Colonoscopy - COLONOSCOP W/ OR W/[facility] SPEC 05/07/16 Colonoscopy - COLONOSCOPY AND POLYPECTOMY 05/15/10 tubular adenomas removed- [place] - LAMINECTOMY,>2 SGMT,LUMBAR 06/11/2018 [facility] - PAST SURGICAL HISTORY OF 2001 [...] Assessed Reason for Visit: Established Patient Follow-Up [[id number]] Primary Visit Diagnosis:PAD (peripheral artery disease) ([facility] ) [I73.9] Order(s):cilostazol (PLETAL) 50 mg tabletTake 2 tablets by m outh twice daily.Disp: 180 tabletRfl: 3 PVR ANK PRESS W/EXC [facility] [[id number]] Order #: [id number] FUTURE LEG ARTERIAL PERIPH [facility] [[id number]] Order #: [id number] FUTURE Prescriptions as of 12/09/2019 Sig: CILOSTAZOL [...] cuff [S*11/03/2018 0 11/19/2019 More... Atherosclerosis of menominee artery of left lower *07/22/2019 More... PAD [...] 12/09/19 progress on 2019-11 PROGRESS HNO ID: [id number] Normal 11-19-2019 [facility] Author: Talon Bolaños [place] Service: ? ([id number]) Author Type: Physician Type: Progress Notes Filed: 11/19/2019 1:08 PM Note Text: This note was created using GuideITriter. Subjective Tye Vazquez is a 79 year old male. He started cutting LIS INOPRIL HCTZ to one half tablet mid October due to urinary frequency. His hypertension and lipids were controlled. He requested a recommendation fo r exercise at a [employer]. He had no current aches or pains, [...] Ddd (Degenerative Disc Disease), Lumbar Atherosclerosis of [place] Artery of Left Lower Extremity Wit h [...] 2019-11-19 CNOV Office Visit (INTMWS) Normal 11-19-19 [place] [facility] TYE VAZQUEZ ([id number]) 1940 M [place] Date Time Provider Department ([id number]) 11/19/19 11:20 AM TALON BOLAÑOS INTMWS During [...] a r ecommendation for exercise at a [employer]. He had no current aches or pains, [...] Ddd (Degenerative Disc Disease), Lumbar Atherosclerosis of [place] Artery of Left Lower Extremity Wit h [...] Talon Bolaños MD Referring Provider: TALON BOLAÑOS [[id number]] Allergies As of Date: 11/19/2019 (No Known [...] cuff [S*11/03/2018 0 11/19/2019 More... Atherosclerosis of menominee artery of left lower *07/22/2019 More... PAD [...] 2019-11-17 Cholesterol [Mass/Vol] 134 <200 mg/dL Normal [facility] (71176) Comment: Result Comment: <200 mg/dL, Desirable 200-239 mg/dL, Borderline hi gh >239 mg/dL, High Performed By: #### CMP, LIPB , CBC ####[place] [address] [phone] Cholesterol in HDL 43 >39 mg/dL Normal 11-17-2019 [facility] [Mass/Vol] (58164) Comment: Result Comment: 40-59 mg/dL, Acceptable >59 mg/dL, High: Negative ri sk factor for coronary heart disease <40 mg/dL, Low: Positive ris k factor for coronary heart disease Performed By: #### CMP, LIPB , CBC ####[place] [address] [phone] Cholesterol in LDL 78 <100 mg/dL Normal 11-17-2019 [facility] [Mass/Vol] [place] (38206) Comment: Result Comment: <100 mg/dL, Optimal 100-129 mg/dL, Near optimal/ above optimal 130-159 mg/dL, Borderline hi gh 160-189 mg/dL, High >189 mg/dL, Very high Secondary prevention optimal LDL Cholesterol levels are recommended to be < 70 mg/dL Performed By: #### CMP, LIPB , CBC ####[place] [address] [phone] Fasting Time 12 hrs Normal 11-17-2019 [facility] (75827) Comment: Performed By: #### CMP, LIPB , CBC ####[place] [address] [phone] LDL:HDL Ratio 1.81 <2.54 Normal 11-17-2019 [facility] (82991) Comment: Result Comment: Reference: 1. National Cholesterol Educ ation Program ATP III Guideline At-A-Glance Quick Desk Reference: National Heart, Lung, and Blood Berino. National Institutes of Health. 2001: NIH Publication No. 01-3305. 2. An International Atherosc lerosis Society position paper: global recommendations for the management of dyslipidemia: executive summary, Atherosclerosis. 2014: 232(2):410-413. Performed By: #### CMP, LIPB , CBC ####[place] [id number] [place] [address] [phone] Non HDL Cholesterol 91 <130 mg/dL Normal 11-17-2019 [facility] (86213) Comment: Result Comment: <130 mg/dL, Optimal 130-159 mg/dL, Near optimal/ above optimal 160-189 mg/dL, Borderline hi gh 190-219 mg/dL, High >219 mg/dL, Very high Secondary prevention optimal non HDL Cholesterol levels are recommended to be < 100 mg/dL Performed By: #### CMP, LIPB , CBC ####[place] [address] [phone] TC:HDL Ratio 3.12 <5.10 Normal 11-17-2019 [facility] (23429) Comment: Performed By: #### CMP, LIPB , CBC ####[place] [address] [phone] Triglyceride [Mass/Vol] 63 <150 mg/dL Normal 2019 [facility] (53267) Comment: Result Comment: <150 mg/dL, Normal 150-199 mg/dL, Borderline hi gh 200-499 mg/dL, High >499 mg/dL, Very high Performed By: #### CMP, LIPB , CBC ####[place] [address] [phone] VLDL Cholesterol 13 <30 mg/dL Normal 11-17-2019 [facility] (25011) Comment: Performed By: #### CMP, LIPB , CBC ####[place] [address] [phone] comp metabolic panel on 2019-11-17 Albumin [Mass/Vol] 4.2 3.9-4.9 g/dL Normal 11-17-2019 [facility] (47193) Comment: Performed By: #### CMP, LIPB , CBC ####[place] [address] ALP [Catalytic activity/Vol] 91 38-113 U/L Normal 0 11-17-2019 [facility] (97699) Comment: Performed By: #### CMP, LIPB , CBC ####[place] [address] ALT [Catalytic activity/Vol] 10 10-54 U/L Normal 0 11-17-2019 [facility] (85003) Comment: Performed By: #### CMP, LIPB , CBC ####[place] [address] [phone] Anion gap [Moles/Vol] 13 9-18 mmol/L Normal 11-17-19 20 [facility] (05625) Comment: Performed By: #### CMP, LIPB , CBC ####[place] [address] [phone] AST [Catalytic activity/Vol] 19 14-40 U/L Normal 0 11-17-2019 [facility] (74551) Comment: Performed By: #### CMP, LIPB , CBC ####[place] [address] [phone] Bilirubin [Mass/Vol] 0.4 0.2-1.3 mg/dL Normal 0 [facility] (70282) Comment: Performed By: #### CMP, LIPB , CBC ####[place] [address] [phone] Calcium [Mass/Vol] 10.0 8.5-10.2 mg/dL Normal 11-17-2019 [facility] (25082) Comment: Performed By: #### CMP, LIPB , CBC ####[place] [address] [phone] Chloride [Moles/Vol] 104 97-105 mmol/L Normal 0 [facility] (14215) Comment: Performed By: #### CMP, LIPB , CBC ####[facility] [address] [address] [phone] CO2 [Moles/Vol] 24 22-30 mmol/L Normal 11-17-2019 [facility] (42252) Comment: Performed By: #### CMP, LIPB , CBC ####[facility] [address] [phone] Creatinine [Mass/Vol] 1.11 0.73-1.22 mg/dL Normal 11-17-19 [facility] (30551) Comment: Performed By: #### CMP, LIPB , CBC ####[place] [address] [address] [place] [address] [phone] eGFR- Amer. >60 Normal 11-17-2019 [facility] (41356) Comment: Performed By: #### CMP, LIPB , CBC ####[facility] [place] [address] [phone] GFR/1.73 sq M predicted >60 mL/min/{1.73_m2} Normal 11-17-2019 [facility] among non-blacks [facility] (05878) (S/P/Bld) [Vol rate/Area] Comment: Result Comment: eGFR [...] Performed By: #### CMP, LIPB , CBC ####[facility] [address] [address] [phone] Glucose [Mass/Vol] 74 74-99 mg/dL Normal 11-17-2019 [facility] (52362) Comment: Result Comment: The [place] Diabetes Association (ADA) provides guidance for cutoff [...] for diagnosis of diabetes. Reference: Standards of [facility] Care in Diabetes 2016, [place] Diabetes Association. Diabetes Care. 2016.39(Suppl 1). Performed By: #### CMP, LIPB , CBC ####[place] [address] [phone] Potassium [Moles/Vol] 3.5 3.7-5.1 mmol/L Low 11-17-19 [facility] (79505) Comment: Performed By: #### CMP, LIPB , CBC ####[place] [address] [place] [address] [phone] Protein [Mass/Vol] 7.2 6.3-8.0 g/dL Normal 11-17-2019 [facility] (82905) Comment: Performed By: #### CMP, LIPB , CBC ####[place] [address] [place] [address] [phone] Sodium [Moles/Vol] 141 136-144 mmol/L Normal 11-17-2019 [facility] (96781) Comment: Performed By: #### CMP, LIPB , CBC ####[place] [id number] [place] [address] [phone] Urea nitrogen [Mass/Vol] 15 9-24 mg/dL Normal 11-17 [facility] (68885) Comment: Performed By: #### CMP, LIPB , CBC ####[place] [address] [address] [place] [address] [phone] cbc on 2019-11-17 Absolute nRBC <0.01 <0.01 Normal 11-17-2019 [facility] (43544) Comment: Performed By: #### CMP, LIPB , CBC ####[address] [place] [address] [phone] Erythrocyte distribution 13.1 11.5-15.0 % Normal 11-17 [facility] width (RBC) [Ratio] [place] (17343) Comment: Performed By: #### CMP, LIPB , CBC ####[address] [place] [address] [phone] Hematocrit (Bld) [Volume 42.9 39.0-51.0 % Normal 11-17 [facility] fraction] [place] (81340) Comment: Performed By: #### CMP, LIPB , CBC ####[place] [address] [phone] Hemoglobin (Bld) 14.1 13.0-17.0 g/dL Normal 11-17-2019 [facility] [Mass/Vol] [place] (07947) Comment: Performed By: #### CMP, LIPB , CBC ####[place] [address] [phone] MCH (RBC) [Entitic mass] 32.4 26.0-34.0 pG Normal 11-17 [facility] (97346) Comment: Performed By: #### CMP, LIPB , CBC ####[address] [address] [phone] MCHC (RBC) [Mass/Vol] 32.9 30.5-36.0 g/dL Normal 11-17-19 [facility] (02586) Comment: Performed By: #### CMP, LIPB , CBC ####[address] [address] [phone] MCV (RBC) [Entitic vol] 98.6 80.0-100.0 fL Normal 11-17 [facility] (63113) Comment: Performed By: #### CMP, LIPB , CBC ####[facility] [place] [address] [phone] Platelet mean volume 11.1 9.0-12.7 fL Normal 0 [facility] (Bld) [Entitic vol] [place] (23240) Comment: Performed By: #### CMP, LIPB , CBC ####[place] [address] [place] [address] [phone] Platelets (Bld) [#/Vol] 280 150-400 k/uL Normal 2019 [facility] (79550) Comment: Performed By: #### CMP, LIPB , CBC ####[place] [address] [phone] RBC (Bld) [#/Vol] 4.35 4.20-6.00 m/uL Normal 11-17-2019 [facility] (77645) Comment: Performed By: #### CMP, LIPB , CBC ####[place] [address] [place] [address] [phone] WBC (Bld) [#/Vol] 5.89 3.70-11.00 k/uL Normal 11-17-2019 [facility] (60227) Comment: Performed By: #### CMP, LIPB , CBC ####[place] [address] [place] [address] [phone] progress on 2019-09 PROGRESS HNO ID: [id number] Normal 10-06-2019 [facility] Author: Talon Bolaños [place] Service: ? 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 Atherosclerosis of menominee artery of left lower *07/22/2019 More... PAD [...] 9 progress on 2019-09 PROGRESS HNO ID: [id number] Normal 09-28-2019 [facility] Author: Jorge L Matias [facility] ([id number]) Service: ? Author Type: ? Type: Progress Notes Filed: 10/01/2019 5:09 PM Note Text: TRANSITION CARE MANAGEMENT (TCM) INITIAL CONTACT [facility] Out[facility] Provider Action/FYI: 7 incision left groin. Glued with dressing. Instructed may remove dressing today and shower. Initial contact with patient post discharge, spoke to terri langford Patient identified by name and . TRANSITION CARE MANAGEMENT INITIAL OUTREACH DOCUMENTATION: Date of Outreach: 09/28/2019 Outreach Attempt 1: Contact Made Date of Discharge 09/26/2019 Some recent data might be hidden SUMMARY: -Pt discharged from [facility] on 09-26-19. -Admitted for: Endarectomy femerol left [...] ? Yes Medical records from recent hospitalization: [facility] cnptoutreach on 201 06-25-16 CNPTOUTREA Patient Outreach (INTMWS) Normal 1 11-29-2018 [place] TYE Carey ([id number]) 1940 [facility] Date Time Provider Department ([id number]) 09/28/19 NIKUNJ JUAN (HEALTH AND SAFETY COORDINATOR) INTMWS During your visit today, we recorded the following informati on about you: Jorge L Matias RN 10/01/2019 5:09 PM Signed TRANSITION CARE MANAGEMENT (TCM) INITIAL CONTACT [facility] Provider Action/FYI: 7 incision left groin. Glued with dressing. Instruct ed may remove dressing today and shower. Initial contact with patient post discharge, spoke to terri langford Patient identified by name and . TRANSITION CARE MANAGEMENT INITIAL OUTREACH DOCUMENTATION: Date of Outreach: 09/28/2019 Outreach Attempt 1: Contact Made Date of Discharge 09/26/2019 Some recent data might be hidden SUMMARY: -Pt discharged from [facility] on 09-26-19. -Admitted for: Endarectomy femerol left [...] left rotator cuff [S*11/03/2018 More... Atherosclerosis of menominee artery of left lower *07/22/2019 More... PAD (peripheral artery disease) (HCC) [I73.9] 09/21/2019 Other insomnia [G47.09] 09/22/2019 More... Anemia [D64.9] 09/24/2019 More... Acute respiratory failure with hypoxia (HCC) [J*09/24/2019 More... Leucocytosis [D72.829] 09/25/2019 More... Encounter Status:Closed by YELENA LUCIO on 10/01/19 progress on 2019-09 PROGRESS HNO ID: [id number] Normal 09-26-2019 [facility] (27031) Author: Esperanza Farfan Service: Vascular Surgery Author [...] 26, 2019 TIME: 11:35 AM PAGER/CONTACT #: [phone] nursing prog on 06-25-14 NURSING HNO ID: [id number] Normal 09-26-2019 [place] PROG Author: Ada LantiguaRn) [facility]ILIANO [facility] Service: ? ([id number]) Author Type: Registered Nurse Type: Nursing Progress Note Filed: 09/26/2019 7:49 PM Note Text: Nursing Progress Note Patient Name: Tye Vazquez Patient [id number] Daily Note: 1722 discharge instructions discussed with patient, transpor carlita off unit with all belongings and new prescription in hand. This note was completed by: Ada Friend RN magnesium on 2018-10 Magnesium [Mass/Vol] 2.0 1.7-2.3 mg/dL Normal 9 [facility] (94482) Comment: Performed By: #### CBC, BMP, MG1 ####[facility] [address] [place] [address] 0 cnco on 2019-09-26 CNCO Letter Text Normal 09-26-2019 [facility] (05584) cbc on 2019-09-26 Erythrocyte distribution 11.9 11.5-15.0 % Normal 09-26 [facility] (69091) width (RBC) [Ratio] Comment: Performed By: #### CBC, BMP, MG1 ####[facility] [address] [place] [phone] Hematocrit (Bld) [Volume 35.0 39.0-51.0 % Low 09-26 [facility] (76948) fraction] Comment: Performed By: #### CBC, BMP, MG1 ####[facility] [address] [place] [phone] Hemoglobin (Bld) 12.2 13.0-17.0 g/dL Low 09-26-2019 [facility] (13568) [Mass/Vol] Comment: Performed By: #### CBC, BMP, MG1 ####[facility] [address] [place] [address] 0 MCH (RBC) [Entitic mass] 32.7 26.0-34.0 pG Normal 09-26 [facility] (73896) Comment: Performed By: #### CBC, BMP, MG1 ####[facility] [address] [place] [address] 0 MCHC (RBC) [Mass/Vol] 34.9 30.5-36.0 g/dL Normal 09-26-20 19 [facility] (13829) Comment: Performed By: #### CBC, BMP, MG1 ####[place] [address] 0 MCV (RBC) [Entitic vol] 93.8 80.0-100.0 fL Normal 09-26 [facility] (37170) Comment: Performed By: #### CBC, BMP, MG1 ####[place] [address] 0 Platelet mean volume (Bld) 10.6 9.0-12.7 fL Normal [facility] (92235) [Entitic vol] Comment: Performed By: #### CBC, BMP, MG1 ####[place] [address] 0 Platelets (Bld) [#/Vol] 237 150-400 k/uL Normal 2018 [facility] (72400) Comment: Performed By: #### CBC, BMP, MG1 ####[facility] [address] [place] [address] 0 RBC (Bld) [#/Vol] 3.73 4.20-6.00 m/uL Low 09-26-2019 [facility] (79911) Comment: Performed By: #### CBC, BMP, MG1 ####[facility] [address] [place] [address] 0 WBC (Bld) [#/Vol] 7.46 3.70-11.00 k/uL Normal 09-26-2019 [facility] (85778) Comment: Performed By: #### MAYA STEIN, MG1 ####[facility] [address] [place] [phone] 0 case managem on 201 06-25-14 CASE MANAGEM HNO ID: [id number] Normal 09-26-20 [facility] Author: Veronica Alvarado ([place]) ([id number]) Service: Case Management Author Type: Fruit Thinner Type: Care Mgt Progress Note Filed: 09/26/2019 12:37 PM Note Text: CARE MANAGEMENT DISCHARGE NOTE SERVICE DATE: 09/26/2019 SERVICE TIME: 12:35 PM LOS: 5 days Admission Date: 09/21/2019 DISCHARGE ARRANGEMENT (list agency and phone number) Home Care - Nursing and PT Provider: [facility] CAREGIVER ASSESSMENT: Caregiver is ready, willing [...] Row Name Admission (Current) from 09/21/2019 in [facility] Agency [facility] Start of Care 09/28/19 Discharge today to home with [facility]. Sent summary of ca re to PCP and HHC. Family to transport. Will schedule own follow up appts. SIGNATURE: ULISES Ken PATIENT NAME: Tye Vazquez DATE: September 26, 2019 TIME: 12:35 PM PAGER/CONTACT #: [phone] basic metabolic panl on 2019-09-26 Anion gap [Moles/Vol] 13 9-18 mmol/L Normal 09-26-20 [facility] (34551) Comment: Performed By: #### SARITA, BMP, MG1 ####[facility] [address] [place] [phone] Calcium [Mass/Vol] 8.6 8.5-10.2 mg/dL Normal 09-26-2019 [facility] (63262) Comment: Performed By: #### MAYA STEIN, MG1 ####[facility] [address] [place] [address] 0 Chloride [Moles/Vol] 98 97-105 mmol/L Normal 9 [facility] (03057) Comment: Performed By: #### CBC BMP, MG1 ####[facility] [address] [place] [address] 0 CO2 [Moles/Vol] 24 22-30 mmol/L Normal 09-26-2019 [facility] (45713) Comment: Performed By: #### MAYA STEIN, MG1 ####[facility] [address] [place] [address] 0 Creatinine [Mass/Vol] 0.89 0.73-1.22 mg/dL Normal 09-26-20 19 [facility] (35473) Comment: Performed By: #### SARITA BMP, MG1 ####[facility] [address] [place] [address] 0 eGFR- Amer. >60 Normal 09-26-2019 [facility] (49620) Comment: Performed By: #### MAYA STEIN, MG1 ####[facility] [address] [place] [address] 0 GFR/1.73 sq M predicted >60 mL/min/{1.73_m2} Normal 09-26-2019 [facility] among non-blacks MDRD (37472) (S/P/Bld) [Vol rate/Area] Comment: Result Comment: eGFR [...] GFR. Performed By: #### MAYA STEIN, MG1 ####[facility] [address] [place] [address] 0 Glucose [Mass/Vol] 92 74-99 mg/dL Normal 09-26-2019 [facility] (19272) Comment: Result Comment: The [place] [employer] (ADA) provides guidance for cutoff [...] for diagnosis of diabetes. Reference: Standards of [facility] Care in Diabetes 2016, [place] [employer]. Diabetes Care. 2016.39(Suppl 1). Performed By: #### MAYA STEIN, MG1 ####[facility] [address] [place] [address] 0 Potassium [Moles/Vol] 3.2 3.7-5.1 mmol/L Low 09-26-20 [facility] (36304) Comment: Performed By: #### MAYA STEIN, MG1 ####[facility] [address] [place] [address] 0 Sodium [Moles/Vol] 135 136-144 mmol/L Low 09-26-2019 [facility] (60746) Comment: Performed By: #### MAYA STEIN, MG1 ####[facility] [address] [place] [address] 0 Urea nitrogen [Mass/Vol] 17 9-24 mg/dL Normal 09-26 [facility] (64706) Comment: Performed By: #### MAYA STEIN, MG1 ####[facility] [address] [place] [address] 0 therapy nt on 09-25 THERAPY HNO ID: [id number] Normal 09-25-2019 [facility] Author: [facility]aine [facility] Service: Physical Therapy ([id number]) Author Type: Lining Stuffer Type: Therapy (PT/OT/Speech/Resp) Filed: 09/25/2019 1:27 PM Note Text: Attestation signed by Erin Mcgraw at 10/06/2019 7:5 6 AM I reviewed and agree with the documentation corresponding to this therapy visit. SIGNATURE: Erin Mcgraw PT DATE: October 06, 2019 TIME: 7:56 AM Physical Therapy Treatment SERVICE DATE: 09/25/2019 SERVICE TIME: 1209 to 1236 ROOM: [id number] Recommended Discharge Disposition: Home PT Recommended Discharge [...] Diagnosis: Reduced mobility-other Interventions Provided: Therapeutic Exercise (13694);Therape utic Activity (29381);Gait Training (50292) Therapeutic Exercise (33794) Treatment Minutes: 10 1 unit Skilled Intervention(s): Instruction in therapeutic exercise for bilateral AP, heel slides, LAQ, slightly resisted isometric hip abduct ion/addduction x 10-15 reps each Verbal and tactile cuing provided for correct performance of exercises Cues for diaphragmatic breathing Re-emphasized the importance of frequent performance of anti -embolic exercises Therapeutic Activity (08680) Treatment Minutes: 2 0 units Skilled Intervention(s): Instruction in sit to stand techniq ue with proper hand placement and body positioning at edge of bed/chair Instruction in stand to sit technique with lower extremities touching chair/bed and reaching back for surface Gait Training (20993) Treatment Minutes: 15 1 unit Skilled Intervention(s): Instruction in sequencing, gait pat tern, reciprocating steps Instruction in correction of gait deviations, cues for uprig ht posture, safety, diaphragmatic breathing Instruction in stair negotiation, ezdy-aj-accm. Instruction in use of equipment, cues for [...] Gait Distance (feet): 80'x2 Stairs Contact Guard Assistance([id number]) Stairs Device: Cane;Rail Number of Stairs: 5 [...] more Please see discipline specific clinical documentation [facility] for complete details for this therapy evaluation/treatment. SIGNATURE: Charmaine Espinoza PTA PATIENT NAME: Tye Vazquez DATE: September 25, 2019 TIME: 1:23 PM progress on 2019-09 PROGRESS HNO ID: [id number] Normal 09-25-2019 [facility] Author: Aron Mena ([id number]) Service: Vascular Surgery Author Type: Physician Type: [...] 25, 2019 TIME: 3:12 PM PAGER/CONTACT #: [phone] PROGRESS HNO ID: [id number] Normal 09-25-2019 [facility] Author: Edenilson Perera ([id number]) Service: Hospital Medicine Author Type: Physician Type: Progress Notes Filed: 09/25/2019 2:00 PM Note Text: SERVICE DATE: 09/25/2019 SERVICE TIME: 2:00 PM HOSPITAL MEDICINE PROGRESS NOTE NIGHT AND WEEKEND COVERAGE: Nights: Please contact pager [phone]. 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 with intermittent [...] (fl,oh) 09/21/19 153 vte pharmacologic prophylaxis contraindicated (mi,oh) 09/21/19 153 vte pharmacologic prophylaxis contraindicated (fl,oh) 09/21/19 153 pneumatic compression stockings (mi,oh) 09/21/19 153 pneumatic compression stockings (mi,oh) 09/21/19 153 pneumatic compression stockings (mi,oh) VTE Prophylaxis: VTE prophylaxis appropriate Plan of care discussed with: Patient and RN SIGNATURE: Edenilson Perera MD PATIENT NAME: Tye Vazquez DATE: September 25, 2019 TIME: 2:00 PM PAGER/CONTACT #: [phone] magnesium on 2018-10 Magnesium [Mass/Vol] 2.2 1.7-2.3 mg/dL Normal 9 [facility] (71118) Comment: Performed By: #### CBC, BMP, MG1 ####[facility] [address] [place] [phone] cbc on 2019-09-25 Erythrocyte distribution 11.9 11.5-15.0 % Normal 09-25 [facility] (39305) width (RBC) [Ratio] Comment: Performed By: #### CBC, BMP, MG1 ####[facility] [address] [place], [place] [phone] Hematocrit (Bld) [Volume 38.7 39.0-51.0 % Low 09-25 [facility] (82466) fraction] Comment: Performed By: #### CBC, BMP, MG1 ####[facility] [address] [place], [place] [address] Hemoglobin (Bld) 13.4 13.0-17.0 g/dL Normal 09-25-2019 [facility] [Mass/Vol] (36946) Comment: Performed By: #### CBC, BMP, MG1 ####[facility] [address] [place] [address] 0 MCH (RBC) [Entitic mass] 32.4 26.0-34.0 pG Normal 09-25 [facility] (39841) Comment: Performed By: #### CBC, BMP, MG1 ####[facility] [address] [place] [address] 0 MCHC (RBC) [Mass/Vol] 34.6 30.5-36.0 g/dL Normal 09-25-[address] [place] [address] (47555) Comment: Performed By: #### CBC, BMP, MG1 ####[place] [address] 0 MCV (RBC) [Entitic vol] 93.7 80.0-100.0 fL Normal 09-25 [facility] (88295) Comment: Performed By: #### CBC, BMP, MG1 ####[place] [address] 0 Platelet mean volume (Bld) 10.8 9.0-12.7 fL Normal [facility] (73769) [Entitic vol] Comment: Performed By: #### CBC, BMP, MG1 ####[place] [address] 0 Platelets (Bld) [#/Vol] 250 150-400 k/uL Normal 2018 [facility] (00996) Comment: Performed By: #### CBC, BMP, MG1 ####[facility] [address] [place] [address] 0 RBC (Bld) [#/Vol] 4.13 4.20-6.00 m/uL Low 09-25-2019 [facility] (95549) Comment: Performed By: #### CBC, BMP, MG1 ####[facility] [address] [place] [address] 0 WBC (Bld) [#/Vol] 12.88 3.70-11.00 k/uL High 09-25-2019 [facility] (28710) Comment: Performed By: #### MAYA STEIN MG1 ####[facility] [address] [place] [address] 0 basic metabolic panl on 2019-09-25 Anion gap [Moles/Vol] 11 9-18 mmol/L Normal 09-25-20 [facility] (25673) Comment: Performed By: #### MAYA STEIN, MG1 ####[facility] [address] [place] [address] 0 Calcium [Mass/Vol] 9.5 8.5-10.2 mg/dL Normal 09-25-2019 [facility] (20691) Comment: Performed By: #### MAAY STEIN, MG1 ####[facility] [address] [place] [address] 0 Chloride [Moles/Vol] 97 97-105 mmol/L Normal [facility] (21721) Comment: Performed By: #### MAYA STEIN, MG1 ####[facility] [address] [place] [address] 0 CO2 [Moles/Vol] 27 22-30 mmol/L Normal 09-25-2019 [facility] (21555) Comment: Performed By: #### SARITA BMP, MG1 ####[facility] [address] [place] [address] 0 Creatinine [Mass/Vol] 0.96 0.73-1.22 mg/dL Normal 09-25-20 [facility] (12149) Comment: Performed By: #### SARITA, BMP, MG1 ####[facility] [address] [place] [address] 0 eGFR- Amer. >60 Normal 09-25-2019 [facility] (02692) Comment: Performed By: #### SARITA, BMP, MG1 ####[facility] [address] [place] [address] 0 GFR/1.73 sq M predicted >60 mL/min/{1.73_m2} Normal 09-25-2019 [facility] among non-blacks MDRD (87826) (S/P/Bld) [Vol rate/Area] Comment: Result Comment: eGFR [...] GFR. Performed By: #### MAYA STEIN, MG1 ####[facility] [address]8305 [phone] 0 Glucose [Mass/Vol] 105 74-99 mg/dL High 09-25-2019 [facility] (48289) Comment: Result Comment: The [place] Diabetes Association (ADA) provides guidance for cutoff [...] for diagnosis of diabetes. Reference: Standards of [facility] Care in Diabetes 2016, [place] [employer]. Diabetes Care. 2016.39(Suppl 1). Performed By: #### CBC, BMP, MG1 ####[facility] [address] [place] [phone] 0 Potassium [Moles/Vol] 4.0 3.7-5.1 mmol/L Normal 09-25-20 [facility] (06548) Comment: Performed By: #### CBC, BMP, MG1 ####[facility] [address] [place] [phone] 0 Sodium [Moles/Vol] 135 136-144 mmol/L Low 09-25-2019 [facility] (39326) Comment: Performed By: #### CBC, BMP, MG1 ####[facility] Zyxnhcnbov4681 [phone] 0 Urea nitrogen [Mass/Vol] 21 9-24 mg/dL Normal 09-25 [facility] (54278) Comment: Performed By: #### CBC, BMP, MG1 ####[facility] Warcfspjvs7500 [phone] xr chest 2v frontal/lat on 2019-09-24 XR CHEST 2V * * *Final Report* * * Normal 09-24 [facility] FRONTAL/LAT DATE OF EXAM: Sep 24 2019 3:22PM ([id number]) MDX 5291 - XR CHEST 2V FRONTAL/LAT [...] IMPRESSION: Stable chest. No acute cardiopulmonary process. Zinc Skimmer: PSCSvitlana Transcribe Date/Time: Sep 24 2019 4:53P Dictated by : ASUNCION QUINONES MD This examination was interpreted and the report reviewed and electronically signed by: ASUNCION QUINONES MD on Sep 24 2019 4:55PM EST [id number] therapy nt on 09-24 THERAPY HNO ID: [id number] Normal 09-24-2019 [place] [facility] Service: Physical Therapy ([id number]) Author Type: Physical Therapist Type: Therapy (PT/OT/Speech/Resp) Filed: 09/24/2019 7:24 PM Note Text: Physical Therapy Evaluation SERVICE DATE: 09/24/2019 SERVICE TIME: 1117 to 1155 ROOM: [place] [address] Recommended Discharge Disposition: Home PT Recommended Discharge [...] Diagnosis: Reduced mobility-other Interventions Provided: Evaluation;Therapeutic Activity (393 30);Gait Training (02418) $ Evaluation-Low (83567) Billed Units: 1 unit Therapeutic Activity (73862) Treatment Minutes: 15 1 unit Skilled Intervention(s): [...] mobility requi res multiple attemts Gait Training (75452) Treatment Minutes: 8 1 unit Skilled Intervention(s): [...] more Please see discipline specific clinical documentation [facility] eet for complete details for this therapy evaluation/treatment. SIGNATURE: Erin Mcgraw PT PATIENT NAME: Tye Vazquez DATE: September 24, 2019 TIME: 7:12 PM progress on 2019-09 PROGRESS HNO ID: [id number] Normal 09-24-2019 [facility] (04491) Author: Aron Mena Service: Vascular Surgery Author [...] 24, 2019 TIME: 4:20 PM PAGER/CONTACT #: [phone] PROGRESS HNO ID: [id number] Normal 09-24-2019 [facility] (94852) Author: Edenilson Perera Service: Hospital Medicine Author Type: Physician Type: Progress Notes Filed: 09/24/2019 3:43 PM Note Text: SERVICE DATE: 09/24/2019 SERVICE TIME: 3:41 PM HOSPITAL MEDICINE PROGRESS NOTE NIGHT AND WEEKEND COVERAGE: Nights: Please contact pager [phone]. 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 with intermittent [...] stockings (fl,oh) 09/21/19 153 pneumatic compression stockings (mi,oh) VTE Prophylaxis: VTE prophylaxis appropriate Plan of care discussed with: Patient and RN SIGNATURE: Edenilson Perera MD PATIENT NAME: Tye Vazquez DATE: September 24, 2019 TIME: 3:41 PM PAGER/CONTACT #: [phone] magnesium on 2018-10 Magnesium [Mass/Vol] 1.9 1.7-2.3 mg/dL Normal [address] [place] [address] (55026) Comment: Performed By: #### CBC, BMP, MG1 ####[facility] [address] [place] [phone] 0 cbc on 2019-09-24 Erythrocyte distribution 12.2 11.5-15.0 % Normal 09-24 [facility] (73069) width (RBC) [Ratio] Comment: Performed By: #### CBC, BMP, MG1 ####[facility] [address] [place] [phone] 0 Hematocrit (Bld) [Volume 35.9 39.0-51.0 % Low 09-24 [facility] (32392) fraction] Comment: Performed By: #### CBC, BMP, MG1 ####[facility] [address]39[address] [place] [phone] 0 Hemoglobin (Bld) 12.3 13.0-17.0 g/dL Low 09-24-2019 [facility] (76254) [Mass/Vol] Comment: Performed By: #### CBC BMP, MG1 ####[facility] [address] [place] [address] 0 MCH (RBC) [Entitic mass] 32.4 26.0-34.0 pG Normal 09-24 [facility] (45232) Comment: Performed By: #### CBC BMP, MG1 ####[place] [address] 0 MCHC (RBC) [Mass/Vol] 34.3 30.5-36.0 g/dL Normal 09-24-20 19 [facility] (64340) Comment: Performed By: #### CBC BMP, MG1 ####[place] [address] 0 MCV (RBC) [Entitic vol] 94.5 80.0-100.0 fL Normal 09-24 [facility] (82904) Comment: Performed By: #### CBC BMP, MG1 ####[place] [address] 0 Platelet mean volume (Bld) 10.7 9.0-12.7 fL Normal [facility] (54940) [Entitic vol] Comment: Performed By: #### CBC BMP, MG1 ####[place] [address] 0 Platelets (Bld) [#/Vol] 193 150-400 k/uL Normal 2018 [facility] (36133) Comment: Performed By: #### CBC, BMP, MG1 ####[place] [address] 0 RBC (Bld) [#/Vol] 3.80 4.20-6.00 m/uL Low 09-24-2019 [facility] (16271) Comment: Performed By: #### CBC, BMP, MG1 ####[place] [address] 0 WBC (Bld) [#/Vol] 10.56 3.70-11.00 k/uL Normal 09-24-2019 [facility] (67781) Comment: Performed By: #### CBC, BMP, MG1 ####[facility] Owdjnvrxnp6651 [phone] case managem on 06-25-12 CASE MANAGEM HNO ID: [id number] Normal 09-24-[address] [place] [address] Author: Veronica Alvarado (Sw) ([id number]) Service: Case Management Author Type: Fruit Thinner Type: Care Mgt Progress Note Filed: 09/24/2019 [...] patient/family: Yes - Within [address] [place] [id number] [place] [address] Quality and resource use metrics shared with the patient marc t are relevant to the patient's goals of care and treatment preferences: Yes - Functional Status Needs Prior to Discharge: To Be Determined;Facility or Agenc y Choices;Home Care Order;OT/PT Evaluation CM met with patient. PT=C and patient was provided a list. Patient made 3 choices [facility], [facility], [facility]. Re ferrals to be sent. Await response. SIGNATURE: ULISES Ken PATIENT NAME: Tye Vazquez DATE: September 24, 2019 TIME: 1:27 PM PAGER/CONTACT #: [phone] basic metabolic panl on 2019-09-24 Anion gap [Moles/Vol] 13 9-18 mmol/L Normal 09-24-[address] [place] [address] (08938) Comment: Performed By: #### CBC, BMP, MG1 ####[facility] Bsscresckp4499 [phone] Calcium [Mass/Vol] 8.5 8.5-10.2 mg/dL Normal 09-24-2019 [facility] (39589) Comment: Performed By: #### CBC, BMP, MG1 ####[facility] Crdndcajea4514 [phone] Chloride [Moles/Vol] 96 97-105 mmol/L Low [address] [place] [address] (46824) Comment: Performed By: #### CBC, BMP, MG1 ####[facility] [address] [place] [address] 0 CO2 [Moles/Vol] 25 22-30 mmol/L Normal 09-24-2019 [facility] (06313) Comment: Performed By: #### CBC, BMP, MG1 ####[facility] [address]8632 [place] [address] 0 Creatinine [Mass/Vol] 0.85 0.73-1.22 mg/dL Normal 09-24-20 19 [facility] (22882) Comment: Performed By: #### CBC, BMP, MG1 ####[facility] [address]1834 [place] [address] 0 eGFR- Amer. >60 Normal 09-24-2019 [facility] (87558) Comment: Performed By: #### CBC, BMP, MG1 ####[facility] Idgtmcxbwx9419 [place] [address] 0 GFR/1.73 sq M predicted >60 mL/min/{1.73_m2} Normal 09-24-2019 [facility] among non-blacks MDRD (32467) (S/P/Bld) [Vol rate/Area] Comment: Result Comment: eGFR [...] GFR. Performed By: #### CBC, BMP, MG1 ####[facility] [address]ju[address]74[address] [place] [address] 0 Glucose [Mass/Vol] 93 74-99 mg/dL Normal 09-24-2019 [facility] (33288) Comment: Result Comment: The [place] Diabetes [employer] (ADA) provides guidance for cutoff [...] for diagnosis of diabetes. Reference: Standards of [facility] Care in Diabetes 2016, [place] [employer]. Diabetes Care. 2016.39(Suppl 1). Performed By: #### CBC, BMP, MG1 ####[facility] [address] [place] [address] 0 Potassium [Moles/Vol] 3.6 3.7-5.1 mmol/L Low 09-24-20 [facility] (05808) Comment: Performed By: #### CBC, BMP, MG1 ####[facility] [address] [place] [address] 0 Sodium [Moles/Vol] 134 136-144 mmol/L Low 09-24-2019 [facility] (07174) Comment: Performed By: #### CBC, BMP, MG1 ####[facility] N[address] [place] [address] 0 Urea nitrogen [Mass/Vol] 18 9-24 mg/dL Normal 09-24 [facility] (60458) Comment: Performed By: #### CBC, BMP, MG1 ####[facility] [address] [place] [address] 0 allied health on 01-10-12 [facility] HNO ID: [id number] Normal 019 [facility] Author: Magen LantiguaCtRODGER Roberts ([id number]) Service: ? Author Type: Clinical Food Service Driver Type: Allied Health Filed: 09/24/2019 3:24 PM [...] * *Final Report* * * Normal 2018 [facility] AP/LAT RT DATE OF EXAM: Sep 23 2019 8:20PM ([id number]) MDX 5207 - XR KNEE 2V AP/LAT [...] with chondrocalcinosis. Medial so ft tissue swelling Zinc Skimmer: [facility] Transcribe Date/Time: Sep 23 2019 8:44P Dictated by : AMOS TIRADO MD This examination was interpreted and the report reviewed and electronically signed by: AMOS TIRADO MD on Sep 23 2019 8:44PM EST [id number] uric acid on 2018-10 Urate [Mass/Vol] 4.7 4.0-8.1 mg/dL Normal 09-23-2019 [facility] (27080) Comment: Performed By: #### URIC #### [facility] [address] [place] [phone] progress on 2019-09 PROGRESS HNO ID: [id number] Normal 09-23-2019 [facility] (69112) Author: Aron Mena Service: Vascular Surgery Author [...] 23, 2019 TIME: 11:20 AM PAGER/CONTACT #: [phone] PROGRESS HNO ID: [id number] Normal 09-23-2019 [facility] (41211) Author: Jean-Claude Mccann) Nathaniel Service: Hospital Medicine Author Type: Physician Type: Progress Notes Filed: 09/22/2019 11:31 PM Note Text: SERVICE DATE: 09/22/2019 SERVICE TIME: 7:30 PM HOSPITAL MEDICINE PROGRESS NOTE NIGHT AND WEEKEND COVERAGE: Nights: Please contact pager [phone]. 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 Author Type: Food Service Driver Type: Allied Health Filed: 09/23/2019 8:22 PM [...] nursing prog on 06-25-10 NURSING HNO ID: [id number] Normal 09-22-2019 [place] PROG Author: Molly (Rn) EMILIANO [facility] Service: Nursing (00 000) Author Type: Registered Nurse Type: Nursing Progress Note Filed: 09/22/2019 8:07 PM Note Text: Nursing Progress Note Patient Name: Tye Vazquez Patient [facility]/[id number] Mena in to evaluate patients. [...] moving to tele this afternoon. Restarting antihypertensives. 8369 Dr. Mena updated on vitals and all meds received. A anderson of arterial line readings compared to NIBP. Instructed to place NIBP on arm that gives higher reading and OK to DC AL. PRN metoprolol be ing ordered. 4014 Dr. Mena has been by to see [...] on 201 06-25-10 CONSULT PROG HNO ID: [id number] Normal 09-22-20 19 [facility] Author: Carlota Moya ([id number]) Service: Critical Care Author Type: Physician Type: Consult Progress Note Filed: 09/22/2019 6:37 PM Note Text: [facility] -- GILBERTO I have seen and reviewed [...] [LEVEL II] DISPOSITION: Stable for transfer to [facility]. CODE STATUS: Full PAST MEDICAL HISTORY Diagnosis [...] 04/26/2014 Colonoscopy - COLONOSCOP W/ OR W/O [facility] SPEC 05/07/16 Colonoscopy - COLONOSCOPY AND POLYPECTOMY 05/15/10 tubular adenomas removed- [place] - LAMINECTOMY,>2 SGMT,LUMBAR 06/11/2018 [facility], Jovan - PAST SURGICAL HISTORY OF 2001 [...] (TYLENOL) 325 mg ORAL q 6 H CA N Aron Vencesvin - oxyCODONE-acetaminophen 5-325 mg [...] mg tab(s) 81 mg ORAL DAILY Luciano iisdro Kassavin 81 mg at 09/22/19 0843 - [...] Seriously ill 79year old male admitted to [facility] c are unit on 09/21/19 s/p ?Left [...] prophylaxis per Dr.Kassavin Garza for transfer to [facility] SIGNATURE: Carlota Moya MD DATE: September 22, 2019 TIME: 6:37 PM cbc and differential on 2019-09-22 Abs Baso <0.03 <0.11 Normal 09-22-2019 [facility] (17937) Comment: Performed By: #### CBCDIF B MP ####[facility] [address] [place] [address] 0 Abs [place] 0.78 <0.87 k/uL Normal 09-22-2019 [facility] (80940) Comment: Performed By: #### CBCDIF B MP ####[place] [address] 0 Abs Neut 7.00 1.45-7.50 k/uL Normal 09-22-2019 [facility] (15505) Comment: Performed By: #### CBCLAKISHAF B MP ####[place] [address] 0 Basophils/100 WBC (Bld) 0.1 % Normal 2018 [facility] (94917) Comment: Performed By: #### CBCDIF B MP ####[place] [address] 0 Eosinophils (Bld) [#/Vol] <0.03 <0.46 10*3/uL Normal 09-13 [facility] (55419) Comment: Performed By: #### CBCDIF B MP ####[place] [address] 0 Eosinophils/100 WBC (Bld) 0.0 % Normal 09-13 [facility] (35282) Comment: Performed By: #### CBCDIF B MP ####[place] [address] 0 Erythrocyte distribution 12.5 11.5-15.0 % Normal 09-22 [facility] (14923) width (RBC) [Ratio] Comment: Performed By: #### CBCDIF B MP ####[facility] [address] [place] [address] 0 Hematocrit (Bld) [Volume 32.5 39.0-51.0 % Low 09-22 [facility] (73140) fraction] Comment: Performed By: #### CBCDIF B MP ####[facility] [address] [place] [address] 0 Hemoglobin (Bld) 11.1 13.0-17.0 g/dL Low 09-22-2019 [facility] (06601) [Mass/Vol] Comment: Performed By: #### CBCDIF B MP ####[facility] [address] [place] [address] 0 Lymphocytes (Bld) [#/Vol] 0.90 1.00-4.00 k/uL Low 09-13 [facility] (58068) Comment: Performed By: #### CBCDIF B MP ####[facility] [address] [place] [address] 0 Lymphocytes/100 WBC (Bld) 10.4 % Normal 09-13 [facility] (25439) Comment: Performed By: #### CBCDIF B MP ####[facility] [address] [place] [address] 0 MCH (RBC) [Entitic mass] 32.1 26.0-34.0 pG Normal 09-22 [facility] (87460) Comment: Performed By: #### CBCDIF B MP ####[place] [address] 0 MCHC (RBC) [Mass/Vol] 34.2 30.5-36.0 g/dL Normal 09-22-20 [facility] (53333) Comment: Performed By: #### CBCDIF, B MP ####[place] [address] 0 MCV (RBC) [Entitic vol] 93.9 80.0-100.0 fL Normal 09-22 [facility] (99817) Comment: Performed By: #### CBCDIF, B MP ####[facility] [address] [place] [address] 0 Monocytes/100 WBC (Bld) 9.0 % Normal 2018 [facility] (79877) Comment: Performed By: #### CBCROSALBA B MP ####[facility] [address] [place] [address] 0 Neutrophils/100 WBC (Bld) 80.5 % Normal 09-13 [facility] (77174) Comment: Performed By: #### CBCROSALBA B MP ####[facility] [address] [place] [address] 0 Platelet mean volume (Bld) 9.8 9.0-12.7 fL Normal [facility] (32386) [Entitic vol] Comment: Performed By: #### PASTORA B MP ####[place] [address] 0 Platelets (Bld) [#/Vol] 187 150-400 k/uL Normal 2018 [facility] (91505) Comment: Performed By: #### CBCROSALBA B MP ####[facility] [address] [place] [address] 0 RBC (Bld) [#/Vol] 3.46 4.20-6.00 m/uL Low 09-22-2019 [facility] (35884) Comment: Performed By: #### CBCROSALBA B MP ####[place] [address] 0 WBC (Bld) [#/Vol] 8.69 3.70-11.00 k/uL Normal 09-22-2019 [facility] (29443) Comment: Performed By: #### CBCROSALBA B MP ####[facility] [address] [place] [address] 0 case mgt init asses on 2019-09-22 CASE MGT INIT HNO ID: [id number] Normal [address]19 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 No Advance Directive: Current Advance Directive: None Prosthetics Assistant Attempted to Assist with AD Completion: Yes [...] Patient Currently Receive Any Community Services or [facility] Care? None Equipment Prior to Admission: Grab bars Has the Patient Been in a [facility] Facility in the [facility] 30 days? No SOCIAL: Living Arrangement: Home [...] 0 I feel financially burdened by my frs-jy-gkhday expenses for my prescription medication: Disagree completely - 0 Patient is categorized as low risk < 2 Are you interested in bedside delivery of your medications? No Pt states preferred community pharmacy is [facility] in [employer] or [facility] mail order Is the Patient Psychosocially Complex? [...] 22, 2019 TIME: 11:31 AM PAGER/CONTACT #: [phone] basic metabolic panl on 2019-09-22 Anion gap [Moles/Vol] 11 9-18 mmol/L Normal 09-22-20 19 [facility] (27155) Comment: Performed By: #### BMP ####M [facility] [address] [place] [phone] Calcium [Mass/Vol] 8.9 8.5-10.2 mg/dL Normal 09-22-2019 [facility] (82395) Comment: Performed By: #### BMP ####M [facility] [address]sf[address]27[address] [place] [phone] Chloride [Moles/Vol] 103 97-105 mmol/L Normal 9 [facility] (71094) Comment: Performed By: #### BMP ####M [facility] [address] [place] [phone] CO2 [Moles/Vol] 27 22-30 mmol/L Normal 09-22-2019 [facility] (50373) Comment: Performed By: #### BMP ####M [facility] [address] [place] [address] Creatinine [Mass/Vol] 0.84 0.73-1.22 mg/dL Normal 09-22-20 19 [facility] (94567) Comment: Performed By: #### BMP ####M [facility] [address]ujd[address] [place] [address] eGFR- Amer. >60 Normal 09-22-2019 [facility] (82224) Comment: Performed By: #### BMP ####M [facility] Eikjiclbri[address] [place] [address] Performed By: #### Svitlana GUILLORY MP ####[facility] [address] [place] [address] 0 GFR/1.73 sq M predicted >60 mL/min/{1.73_m2} Normal 09-22-2019 [facility] among non-blacks MDRD (01055) (S/P/Bld) [Vol rate/Area] Comment: Result Comment: eGFR [...] actual GFR. Performed By: #### BMP ####M [facility] [address] [place] [address] Performed By: #### Svitlana GUILLORY MP ####[facility] [address] [place] [address] 0 Glucose [Mass/Vol] 121 74-99 mg/dL High 09-22-2019 [facility] (75147) Comment: Result Comment: The [place] Diabetes Association (ADA) provides guidance for cutoff [...] for diagnosis of diabetes. Reference: Standards of [facility] in Diabetes 2016, [place] [employer]. Diabetes Care. 2016.39(Suppl 1). Performed By: #### BMP ####M [facility] [address] [place], [place] [phone] Potassium [Moles/Vol] 3.7 3.7-5.1 mmol/L Normal 09-22-[address] [place] [address] ([address]21) Comment: Performed By: #### BMP ####M [facility] [address] [place], [place] [phone] Sodium [Moles/Vol] 141 136-144 mmol/L Normal 09-22-2019 [facility] (02118) Comment: Performed By: #### BMP ####M [facility] [address] [place], [place] [phone] Urea nitrogen [Mass/Vol] 15 9-24 mg/dL Normal 09-22 [facility] (44405) Comment: Performed By: #### BMP ####M [facility] [address] [place], [place] [phone] Anion gap [Moles/Vol] 9 9-18 mmol/L Normal 09-22-[address] [place] [address] ([address]) Comment: Performed By: #### CBCDIF, B MP ####[facility] [address] [place], [place] [phone] Calcium [Mass/Vol] 8.5 8.5-10.2 mg/dL Normal 09-22-2019 [facility] (88137) Comment: Performed By: #### CBCDIF, B MP ####[facility] [address] [place] [phone] Chloride [Moles/Vol] 106 97-105 mmol/L High 9 [facility] (03104) Comment: Performed By: #### Svitlana GUILLORY MP ####[facility] [address] [place] [address] 0 CO2 [Moles/Vol] 25 22-30 mmol/L Normal 09-22-2019 [facility] (38566) Comment: Performed By: #### Svitlana GUILLORY MP ####[facility] [address] [place] [address] 0 Creatinine [Mass/Vol] 1.05 0.73-1.22 mg/dL Normal 09-22-20 [facility] (15415) Comment: Performed By: #### Svitlana GUILLORY MP ####[facility] [address] [place] [address] 0 Glucose [Mass/Vol] 131 74-99 mg/dL High 09-22-2019 [facility] (42740) Comment: Result Comment: The [place] [employer] (ADA) provides guidance for cutoff [...] for diagnosis of diabetes. Reference: Standards of [facility] Care in Diabetes 2016, [place] [employer]. Diabetes Care. 2016.39(Suppl 1). Performed By: #### Svitlana GUILLORY MP ####[facility] [address] [place] [phone] 0 Potassium [Moles/Vol] 3.8 3.7-5.1 mmol/L Normal 09-22-20 [facility] (60341) Comment: Performed By: #### Svitlana GUILLORY MP ####[facility] [address] [place] [address] 0 Sodium [Moles/Vol] 140 136-144 mmol/L Normal 09-22-2019 [facility] (77677) Comment: Performed By: #### Svitlana GUILLORY MP ####[facility] [address] [place] [phone] Urea nitrogen [Mass/Vol] 18 9-24 mg/dL Normal 09-22 [facility] (77939) Comment: Performed By: #### Svitlana GUILLORY MP ####[facility] [address] [place] [phone] xr chest 1v frontal port on 2019-09-21 XR CHEST 1V * * *Final Report* * * Normal 09-21 [facility] FRONTAL PORT DATE OF EXAM: Sep 21 2019 7:05AM ([id number]) MDX 5376 - XR CHEST 1V FRONTAL PORT / PROCEDURE REASON: Preoperative assessment * * * * Physician Interpretation * * * * Portable chest x-ray: HISTORY: Preoperative assessment FINDINGS: The cardiac-pericardial silhouette is within maggie l limits. No evidence of infiltrate, vascular redistribution, or pleural effusion. IMPRESSION: No acute finding [facility] Transcribe Date/Time: Sep 21 2019 7:09A Dictated by : MERT SHORE MD This examination was interpreted and the report reviewed and electronically signed by: MERT SHORE MD on Sep 21 2019 7:10AM EST [id number] type and screen on 2019-09-21 ABO/RH(D) O POSITIVE Normal 09-21-2019 [facility] (07447) Comment: Performed By: #### TSCR #### [facility] [address] [place] [phone] surgical pathology on 2019-09-21 SURGICAL Specimen originated from [facility] Normal 09-21-2019 [facility] Specimen #: [id number] Hospital Submitting Physician: ARON MENA MD ([id number]) FINAL DIAGNOSIS Left femoral artery, endarterectomy - [...] decalcification. ERLIN/geovany 09/22/2019 Gross examination performed at [facility], [address] [place] [address] Date of Report: 09/24/2019 Date of Procedure: 09/21/2019 Date of Receipt: 09/21/2019 Submitted by: ARON MENA MD Location: [address] [place] [address] Diagnostic interpretation performed at [facility], [address] [place] [address]. CLIA Number: [id number] staph aureus pcr on 2019-09-21 MRSA PCR Negative for MRSA by PCR. Normal [facility] (69984) Comment: Performed By: #### SAPCR ### #[facility] Zmhgnfqgkw7808 [address] [phone]. Anthony'S Hospital[address] [place] [phone] S aureus Spec Source Nasal Normal [facility] (50977) Comment: Performed By: #### SAPCR ### #[facility] Prrhqghxvc1682 [address] [phone]. Anthony'S Hospital[address] [place] [address] [place] [phone] Staph aureus PCR Negative for Normal 09-21-2019 [facility] Staphylococcus aureus by ([id number]) PCR. Comment: Performed By: #### SAPCR ### #[facility] [address] [place] [phone] [address] [place], [place] [phone] pt ed on 2019-09-21 PT ED HNO ID: [id number] Normal 09-21-2019 [facility] (61052) Author: Liliya (Rn) EMILIANO Hurtado Service: Nursing [...] Signed By: Liliya Hurtado RN In Department: [facility] SURGERY protime on PT Coag (PPP) [Time] 1.0 0.9-1.3 s Normal 9 [facility] (13833) Comment: Result Comment: Vitamin K An tagonist (VKA) Therapeutic Range: INR 2 to 3 (Target INR of 2.5) Note: For patients treated w ith VKA drugs, such as warfarin, the [employer] 2012 Guideline recommends a therapeutic INR range of 2 to 3 (target INR of 2.5). This recommendation includes high-risk patients with antiphospholipid syndrome with previous arterial or venous thromboembolism, current-generation mechanical or bioprosthetic aortic heart valve replacement. Note: Patients with laundry machine mechanic al aortic valve replacement and additional risk factors for thromboembolic events (atrial fibrillation, previous thromboembolism, LV dysfunction, hypercoagulable conditions) or an older generation mecha nical AVR (i.e., ball in-Cage) or any mechanical MVR should have a INR therapeutic range of 2.5 to 3.5 (target INR of 3). Manisha JORGENSEN, et al. Chest 2012 , 141:7S-47S Ignacio DAILEY et al. [facility] 20 , 70: 252-289 Performed By: #### CBC, PT, PTT, BMP ####[facility] Halplbabbh9566 [phone] PT Coag (PPP) [Time] 11.0 9.7-13.0 sec Normal 9 [facility] (09182) Comment: Performed By: #### CBC, PT, PTT, BMP ####[facility] Qxjoxtodgu8674 [phone] operative no on 201 06-25-09 OPERATIVE NO HNO ID: [id number] Normal 09-21-20 [facility] Author: Aron Mena ([id number]) Service: Vascular Surgery Author Type: Physician Type: Operative Report Filed: 09/22/2019 12:54 PM Note Text: [facility] - Operative Report TYE VAZQUEZ : 1940 AGE: 79. SEX: M PATIENT TYPE: I HOSP [facility] [place] LOCATION: [facility] ATTENDING PHYSICIAN: ARON MENA CSN NUMBER: [id number] DATE OF SURGERY/PROCEDURE: 09/21/2019 INCISION/PROCEDURE START TIME: 9:11 AM INCISION CLOSE/PROCEDURE END TIME: 2:46 PM PREOPERATIVE DIAGNOSIS: Peripheral arterial disease, left to e rest pain. POSTOPERATIVE DIAGNOSIS: Peripheral arterial disease, left t oe rest pain. SURGEON: Aron Mena M.D. PEARLER: Nathalie Main and Opal Armendariz. SURGERY/PROCEDURE: Left [...] condition for close observation. Aron Mena M.D. DK:[id number] /[id number] nursing prog on 06-25-09 NURSING HNO ID: [id number] Normal 09-21-2019 [facility] Author: Jon LantiguaRn) EMILIANO [facility] Service: Nursing ([id number] [phone]) Author Type: Registered Nurse Type: Nursing Progress Note Filed: 09/21/2019 4:00 PM Note Text: Nursing Progress Note Patient Name: Tye Vazquez Patient Location: [facility]-2129/[id number] Daily Note: 09/21/19 1300: From OR to [...] history physical on 2019-09-21 HISTORY HNO ID: [id number] Normal 09-21-2019 [facility] PHYSICAL Author: [facility] Service: Vascular Surgery ([id number]) Author Type: Physician Type: HANDP Filed: 09/21/2019 [...] tear of left rotator cuff 11/03/2018 [facility] - Umbilical hernia without mention of obstruction or gangren e 10/11/2008 PAST SURGICAL HISTORY Procedure Laterality Date - COLONOSCOP W/ OR W/O [facility] SPEC 04/26/2014 Colonoscopy - COLONOSCOP W/ OR W/O [facility] SPEC 05/07/16 Colonoscopy - COLONOSCOPY AND POLYPECTOMY 05/15/10 tubular adenomas removed- [place] - LAMINECTOMY,>2 SGMT,LUMBAR 06/11/2018 [facility] [place] - PAST SURGICAL HISTORY OF 2001 [...] 10 mg tablet, Take 1 tablet by ak ut at bedtime as needed for Muscle [...] prog on 201 06-25-09 CONSULT HNO ID: [id number] Normal 09-21-2019 [facility] Author: Carlota [facility] Service: Critical Care ([id number]) Author Type: Physician Type: Consult Progress Note Filed: 09/21/2019 3:39 PM Note Text: [facility] -- GILBERTO I have seen and reviewed [...] tear of left rotator cuff 11/03/2018 [facility]. - Umbilical hernia without mention of obstruction or gangren e 10/11/2008 PAST SURGICAL HISTORY Procedure Laterality Date - COLONOSCOP W/ OR W/O [facility] SPEC 04/26/2014 Colonoscopy - COLONOSCOP W/ OR W/O [facility] SPEC 05/07/16 Colonoscopy - COLONOSCOPY AND POLYPECTOMY 05/15/10 tubular adenomas removed- [place] - LAMINECTOMY,>2 SGMT,LUMBAR 06/11/2018 [facility] - PAST SURGICAL HISTORY OF 2001 [...] (TYLENOL) 325 mg ORAL q 6 H CA N Aron Mena - oxyCODONE-acetaminophen 5-325 mg [...] ON 09/22/2019] lisinopril 20 mg tab(s) (ZESTRIL, CA INIVIL) 20 mg ORAL DAILY Aron Mena [...] Seriously ill 79year old male admitted to [facility] on 09/21/19 s/p [...] Is Patient Clinically Ready to Transfer to [facility] or SDU?: No Discharge Planning: Home SIGNATURE: Carlota Moya MD DATE: September 21, 2019 TIME: 3:38 PM cbc on 2019-09-21 Erythrocyte distribution 12.0 11.5-15.0 % Normal 09-21 [facility] (84401) width (RBC) [Ratio] Comment: Performed By: #### CBC, PT, PTT, BMP ####[facility] [address] [place] [phone] Hematocrit (Bld) [Volume 40.0 39.0-51.0 % Normal 09-21 [facility] (03766) fraction] Comment: Performed By: #### CBC, PT, PTT, BMP ####[place] [address] 0 Hemoglobin (Bld) 14.1 13.0-17.0 g/dL Normal 09-21-2019 [facility] [Mass/Vol] (57864) Comment: Performed By: #### CBC, PT, PTT, BMP ####[place] [address] 0 MCH (RBC) [Entitic mass] 32.6 26.0-34.0 pG Normal 09-21 [facility] (74178) Comment: Performed By: #### CBC, PT, PTT, BMP ####[place] [address] 0 MCHC (RBC) [Mass/Vol] 35.3 30.5-36.0 g/dL Normal 09-21-20 19 [facility] (81676) Comment: Performed By: #### CBC, PT, PTT, BMP ####[place] [address] 0 MCV (RBC) [Entitic vol] 92.4 80.0-100.0 fL Normal 09-21 [facility] (45119) Comment: Performed By: #### CBC, PT, PTT, BMP ####[place] [address] 0 Platelet mean volume (Bld) 10.4 9.0-12.7 fL Normal [facility] (97580) [Entitic vol] Comment: Performed By: #### CBC, PT, PTT, BMP ####[place] [address] 0 Platelets (Bld) [#/Vol] 254 150-400 k/uL Normal 2018 [facility] (94797) Comment: Performed By: #### CBC, PT, PTT, BMP ####[place] [address] 0 RBC (Bld) [#/Vol] 4.33 4.20-6.00 m/uL Normal 09-21-2019 [facility] (98318) Comment: Performed By: #### CBC, PT, PTT, BMP ####[facility] [address] [place] [address] 0 WBC (Bld) [#/Vol] 6.50 3.70-11.00 k/uL Normal 09-21-2019 [facility] (45727) Comment: Performed By: #### CBC, PT, PTT, BMP ####[place] [address] 0 basic metabolic panl on 2019-09-21 Anion gap [Moles/Vol] 12 9-18 mmol/L Normal 09-21-20 [facility] (62402) Comment: Performed By: #### CBC, PT, PTT, BMP ####[place] [address] 0 Calcium [Mass/Vol] 9.8 8.5-10.2 mg/dL Normal 09-21-2019 [facility] (93405) Comment: Performed By: #### CBC, PT, PTT, BMP ####[place] [address] 0 Chloride [Moles/Vol] 100 97-105 mmol/L Normal [facility] (97337) Comment: Performed By: #### CBC, PT, PTT, BMP ####[place] [address] 0 CO2 [Moles/Vol] 28 22-30 mmol/L Normal 09-21-2019 [facility] (91799) Comment: Performed By: #### CBC, PT, PTT, BMP ####[place] [address] 0 Creatinine [Mass/Vol] 1.29 0.73-1.22 mg/dL High 09-21-20 [facility] (64541) Comment: Performed By: #### CBC, PT, PTT, BMP ####[place] [address] 0 eGFR- Amer. >60 Normal 09-21-2019 [facility] (86054) Comment: Performed By: #### CBC, PT, PTT, BMP ####[place] [address] 0 GFR/1.73 sq M predicted among 54 . Normal 09-21-2019 [facility] (80748) non-blacks MDRD (S/P/Bld) [Vol rate/Area] Comment: Result [...] Performed By: #### CBC, PT, PTT, BMP ####[facility] [address] [place] [address] 0 Glucose [Mass/Vol] 92 74-99 mg/dL Normal 09-21-2019 [facility] (31272) Comment: Result Comment: The [place] [employer] (ADA) provides guidance for cutoff [...] for diagnosis of diabetes. Reference: Standards of [facility] Care in Diabetes 2016, [place] [employer]. Diabetes Care. 2016.39(Suppl 1). Performed By: #### CBC, PT, PTT, BMP ####[facility] Tmu[address]ciym[address]3 [phone] Potassium [Moles/Vol] 3.6 3.7-5.1 mmol/L Low 09-21-20 19 [facility] (10622) Comment: Performed By: #### CBC, PT, PTT, BMP ####[facility] [address] [place] [phone] Sodium [Moles/Vol] 140 136-144 mmol/L Normal 09-21-2019 [facility] (70294) Comment: Performed By: #### CBC, PT, PTT, BMP ####[facility] [address] [place] [address] 0 Urea nitrogen [Mass/Vol] 20 9-24 mg/dL Normal 09-21 [facility] (06125) Comment: Performed By: #### CBC, PT, PTT, BMP ####[facility] [address] [place] [address] 0 aptt on 2019-09-21 aPTT Coag (Bld) [Time] 32.0 23.0-32.4 sec Normal 019 [facility] (19712) Comment: Result Comment: Unfractionat ed Heparin Therapeutic [...] laboratory APTT reagent in use throughout the [facility]. Performed By: #### CBC, PT, PTT, BMP ####[facility] [address] [place] [address] 0 anes preop on 09-21 ANES PREOP HNO ID: [id number] Normal 09-21-2019 [facility] Author: Bony Mishra ([id number]) Service: Anesthesiology Author Type: Anesthesiologist Type: Anesthesia [...] Tear of Left Rotator Cuff Atherosclerosis of [place] Artery of Left Lower Extremity Wit h [...] tear of left rotator cuff 11/03/2018 [facility]. - Umbilical hernia without mention of obstruction or gangren e 10/11/2008 PAST SURGICAL HISTORY Procedure Laterality Date - COLONOSCOP W/ OR W/O [facility] SPEC 04/26/2014 Colonoscopy - COLONOSCOP W/ OR W/O [facility] SPEC 05/07/16 Colonoscopy - COLONOSCOPY AND POLYPECTOMY 05/15/10 tubular adenomas removed- [place] - LAMINECTOMY,>2 SGMT,LUMBAR 06/11/2018 [facility] [place] - PAST SURGICAL HISTORY OF 2001 bilat [...] September 21, 2019 TIME: 7:01 AM CSN: [id number] anes post on 2018-10 ANES POST HNO ID: [id number] Normal 09-21-2019 [facility] Author: Bony Mishra ([id number]) Service: Anesthesiology Author Type: Anesthesiologist Type: Anesthesia [...] 21, 2019 TIME: 5:57 PM PAGER/CONTACT #: [phone] allied health on 01-10-09 [facility] HNO ID: [id number] Normal [address] [place] [address] Author: RODGER Hess (Ct) ([id number]) Service: ? Author Type: Clinical Food Service Driver Type: Allied Health Filed: 09/21/2019 7:10 AM [...] prog on 06-25-06 NURSING PROG HNO ID: [id number] Normal 09-18-20 [facility] Author: Leighann (Rn) EMILIANO Gomez ([id number]) Service: ? Author Type: Registered Nurse Type: [...] history physical on 2019-09-18 HISTORY HNO ID: [id number] Normal 09-18-2019 [place] [facility] Author: Mary Jane Ballesteros ([place]) [facility] Service: ? 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. - Umbilical hernia without mention of obstruction or gangren e 10/11/2008 PAST SURGICAL HISTORY Procedure Laterality Date - COLONOSCOP W/ OR W/O [facility] SPEC 04/26/2014 Colonoscopy - COLONOSCOP W/ OR W/O [facility] SPEC 05/07/16 Colonoscopy - COLONOSCOPY AND POLYPECTOMY 05/15/10 tubular adenomas removed- [place] - LAMINECTOMY,>2 SGMT,LUMBAR 06/11/2018 [facility] - PAST SURGICAL HISTORY OF 2001 [...] fevers. 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 No neurological symp toms or problems. Respiratory: No history of current cough or dyspnea, or pneu monia in the past 6 weeks. No history of respiratory/pulmonary symptoms o r problems. +Current smoker. Denies asthma, COPD or JANIS. Cardiovascular: Positive for: HLD, Hypertension, Negative fo r Recent DC, Arrhythmia, CAD, Chest Pain, CHF, PVD, Valvular [...] on 2019-09 OBSOLETE Procedure (VASMATTEOD) Normal 09-16-2019 [place] [facility] TYE VAZQUEZ ([id number]) 1940 [facility] Date Time Provider Department ([id number]) 09/16/19 ARON MENA During your visit today, we recorded the following informati on about you: Allergies As of Date: 09/16/2019 (No Known Allergies) Date Reviewed: 09/15/2019 Reviewed by: Tammie LantiguaRn) EMILIANO Caruso - Fully Assessed Reason for Visit: Schedule Surgery [1330] Primary Visit Diagnosis:PAD (peripheral artery disease) ([facility] ) [I73.9] Order(s):SURGICAL REQUEST - ELECTIVE [2373103] Order #: [id number]: 1 Prescriptions as of 09/16/2019 Sig: LISINOPRIL [...] left rotator cuff [S*11/03/2018 More... 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 Progress Notes ([facility]): Merlene Evans RN 09/09/2019 11:13 [...] O POSITIVE Normal 09-15-2019 [facility] (28670) Comment: Performed By: #### TSCR #### [facility] Mvjnlvkofh3073 [phone] pt ed on 2019-09-15 PT ED HNO ID: [id number] Normal 09-15-2019 [facility] Author: Tammie LantiguaRnDaniel Caruso RN ([id number]) Service: Nursing Author Type: Registered Nurse Type: [...] Signed By: Tammie Caruso RN In Department: [facility]OT PT ED HNO ID: [id number] Normal 09-15-2019 [facility] Author: Courtney Paez RN ([id number]) Service: ? Author Type: Registered Nurse Type: [...] Signed By: Courtney Paez RN In Department: [facility] AGRIC[facility] PILOT protime on PT Coag (PPP) [Time] 10.7 9.7-13.0 sec Normal 9 [facility] (31078) Comment: Performed By: #### PT, BMP, CBC #### [facility] Laboratory 1000 [facility] [phone] PT Coag (PPP) [Time] 1.0 0.9-1.3 s Normal 9 [facility] (00872) Comment: Result Comment: Vitamin K An tagonist (VKA) Therapeutic Range: INR 2 to 3 (Target INR of 2.5) Note: For patients treated w ith VKA drugs, such as warfarin, the [employer] 2012 Guideline recommends a therapeutic INR range of 2 to 3 (target INR of 2.5). This recommendation includes high-risk patients with antiphospholipid syndrome with previous arterial or venous thromboembolism, current-generation mechanical or bioprosthetic aortic heart valve replacement. Note: Patients with laundry machine mechanic al aortic valve replacement and additional risk factors for thromboembolic events (atrial fibrillation, previous thromboembolism, LV dysfunction, hypercoagulable conditions) or an older generation mecha nical AVR (i.e., ball in-Cage) or any mechanical MVR should have a INR therapeutic range of 2.5 to 3.5 (target INR of 3). Manisha GH, et al. Chest 2012 , 141:7S-47S Ignacio RA, et al. [facility] 20 17, 70: [phone] Performed By: #### PT, BMP, CBC #### [facility] [address] [facility] [phone] operative no on 201 06-25-03 OPERATIVE NO HNO ID: [id number] Normal 09-15-20 [facility] Author: Aron Mena ([id number]) Service: Vascular Surgery Author Type: Physician Type: Operative Report Filed: 09/17/2019 2:35 PM Note Text: [facility] - Operative Report TYE VAZQUEZ : 1940 AGE: 79. SEX: M PATIENT TYPE: A HOSP [facility]: [place] LOCATION: [facility] ATTENDING PHYSICIAN: ARON MENA CSN NUMBER: [id number] DATE OF SURGERY/PROCEDURE: 09/15/2019 INCISION/PROCEDURE START TIME: 1:44 PM INCISION CLOSE/PROCEDURE END TIME: 2:32 PM PREOPERATIVE DIAGNOSIS: Peripheral arterial disease, left cordero llux numbness suggestive of rest pain. POSTOPERATIVE DIAGNOSIS: Peripheral arterial disease, left h allux numbness suggestive of rest pain. SURGEON: Aron Mena M.D. PEARLER: No Additional Staff SURGERY/PROCEDURE: Aortoiliac angiography, left [...] cm distance wi th reconstitution in the zysne-hrd-qndx segment. This appears c hronic given extensive [...] e aorta via standard Seldinger technique. A 5-Maori sheath was placed, followed by advancement of [...] with patch angioplasty with possibili ty of akioi-fy-tqiva knee popliteal bypass. The decision was made [...] in the left DP. Aron Mena M.D. HILARIO:[id number] /[id number] nursing prog on 201 06-25-03 NURSING PROG HNO ID: [id number] Normal 09-15-20 19 [facility] ([id number]) Author: Courtney (Rn) EMILIANO Paez Service: ? Author Type: Registered Nurse Type: Nursing Progress Note Filed: 09/15/2019 11:59 AM Note Text: @ 1120 Pt received to ASCU, ambulatory AND steady. Pt alert AND oriented - pleasasnt AND cooperative with care. @ 1155 Ready for OR - daughter @ bedside. history physical on 2019-09-15 HISTORY HNO ID: [id number] Normal 09-15-2019 [place] PHYSICAL Author: [facility] Service: Vascular Surgery ([id number]) Author Type: Physician Type: HANDP Filed: 09/15/2019 12:58 PM Note Text: HISTORY AND PHYSICAL EXAMINATION SERVICE DATE: 09/15/2019 SERVICE TIME: 1258 PRIMARY CARE PHYSICIAN: Talon Bolaños MD Subjective CHIEF COMPLAINT: PAD HPI: Tye Vazquez was referred for consultation by ?Dr. Aria santillan. ?Opinions and recommendations in this consultation will be t ransmitted back to the referring physician by Epic notes or via mail. ? ?is a 79 year old male PMH DDD?who is seen today for left lower extremity angiography, possible intervention. Complains of continued numbness in the left halux. No wounds . ABIs right 1 left 0.44 DUS left LE suggest MANTEL CRAFTSMAN and proximal SFA stenoses and left popliteal [...] onset of left leg pain. ? Prior SAMNATHA 09/2018 1 bilaterally. Smoking down to few [...] tear of left rotator cuff 11/03/2018 [facility]. - Umbilical hernia without mention of obstruction or gangren e 10/11/2008 PAST SURGICAL HISTORY Procedure Laterality Date - COLONOSCOP W/ OR W/O [facility] SPE[facility] 04/26/2014 Colonoscopy - COLONOSCOP W/ OR W/O [facility] SPEC 05/07/16 Colonoscopy - COLONOSCOPY AND POLYPECTOMY 05/15/10 tubular adenomas removed- [place] - LAMINECTOMY,>2 SGMT,LUMBAR 06/11/2018 [facility] - PAST SURGICAL HISTORY OF 2001 [...] Disp: 30 tablet, Rfl: 0, Past W [place] at Unknown time gabapentin (NEURONTIN) 300 mg [...] on 2019-09-15 ABO/RH(D) O POSITIVE Normal 09-15-2019 [facility]spital ([id number]) Comment: Performed By: #### CONABO ## ##[facility] [address] [place] [phone] cbc on 2019-09-15 Erythrocyte distribution 12.6 11.5-15.0 % Normal 09-15 [facility] (47819) width (RBC) [Ratio] Comment: Performed By: #### PT, BMP, CBC ####[facility] [address] [place] [phone] Hematocrit (Bld) [Volume 41.7 39.0-51.0 % Normal 09-15 [facility] (67509) fraction] Comment: Performed By: #### PT, BMP, CBC ####[facility] [address] [place] [phone] Hemoglobin (Bld) 14.5 13.0-17.0 g/dL Normal 09-15-2019 [facility] [Mass/Vol] (80851) Comment: Performed By: #### PT, BMP, CBC ####[facility] [address] [place] [phone] MCH (RBC) [Entitic mass] 32.2 26.0-34.0 pG Normal 09-15 [facility] (70113) Comment: Performed By: #### PT, BMP, CBC ####[facility] [address] [place] [address] 0 MCHC (RBC) [Mass/Vol] 34.8 30.5-36.0 g/dL Normal 09-15-20 [facility] (71673) Comment: Performed By: #### PT, BMP, CBC ####[place] [address] 0 MCV (RBC) [Entitic vol] 92.7 80.0-100.0 fL Normal 09-15 [facility] (32111) Comment: Performed By: #### PT, BMP, CBC ####[place] [address] 0 Platelet mean volume (Bld) 10.7 9.0-12.7 fL Normal [facility] (35927) [Entitic vol] Comment: Performed By: #### PT, BMP, CBC ####[place] [address] 0 Platelets (Bld) [#/Vol] 244 150-400 k/uL Normal 2018 [facility] (34270) Comment: Performed By: #### PT, BMP, CBC ####[place] [address] 0 RBC (Bld) [#/Vol] 4.50 4.20-6.00 m/uL Normal 09-15-2019 [facility] (36907) Comment: Performed By: #### PT, BMP, CBC ####[place] [address] 0 WBC (Bld) [#/Vol] 6.44 3.70-11.00 k/uL Normal 09-15-2019 [facility] (70266) Comment: Performed By: #### PT, BMP, CBC ####[place] [address] 0 basic metabolic panl on 2019-09-15 Anion gap [Moles/Vol] 14 9-18 mmol/L Normal 09-15-20 [facility] (54993) Comment: Performed By: #### PT, BMP, CBC ####[facility] [address] [place] [address] 0 Calcium [Mass/Vol] 9.4 8.5-10.2 mg/dL Normal 09-15-2019 [facility] (61918) Comment: Performed By: #### PT, BMP, CBC ####[facility] [address] [place] [address] 0 Chloride [Moles/Vol] 99 97-105 mmol/L Normal 9 [facility] (09619) Comment: Performed By: #### PT, BMP, CBC ####[facility] [address] [place] [address] 0 CO2 [Moles/Vol] 27 22-30 mmol/L Normal 09-15-2019 [facility] (32047) Comment: Performed By: #### PT, BMP, CBC ####[facility] [address] [place] [address] 0 Creatinine [Mass/Vol] 1.22 0.73-1.22 mg/dL Normal 09-15-20 19 [facility] (27588) Comment: Performed By: #### PT, BMP, CBC ####[facility] [address] [place] [address] 0 eGFR- Amer. >60 Normal 09-15-2019 [facility] (70701) Comment: Performed By: #### PT, BMP, CBC ####[facility] [address] [place] [address] 0 GFR/1.73 sq M predicted among 57 . Normal 09-15-2019 [facility] (25848) non-blacks MDRD (S/P/Bld) [Vol rate/Area] Comment: Result [...] GFR. Performed By: #### PT, BMP, CBC ####[facility] [address] [place] [address] 0 Glucose [Mass/Vol] 86 74-99 mg/dL Normal 09-15-2019 [facility] (09430) Comment: Result Comment: The [place] Diabetes Association (ADA) provides guidance for cutoff [...] for diagnosis of diabetes. Reference: Standards of [facility] in Diabetes 2016, [place] Diabetes Association. Diabetes Care. 2016.39(Suppl 1). Performed By: #### PT, BMP, CBC ####[facility] [address] [place] [address] 0 Potassium [Moles/Vol] 3.3 3.7-5.1 mmol/L Low 09-15-20 [facility] (47772) Comment: Performed By: #### PT, BMP, CBC ####[facility] [address] [place] [address] 0 Sodium [Moles/Vol] 140 136-144 mmol/L Normal 09-15-2019 [facility] (10249) Comment: Performed By: #### PT, BMP, CBC ####[facility] [address] [place] [phone] Urea nitrogen [Mass/Vol] 23 9-24 mg/dL Normal 09-15 [facility] (15851) Comment: Performed By: #### PT, BMP, CBC ####[facility] [address] [place] [phone] obsolete on 2019-08 OBSOLETE Refill (INTMWS) Normal 09-09-2019 [place] [facility] TYE VAZQUEZ ([id number]) 1940 M [place] Date Time Provider Department (32010) 09/09/19 TALON BOLAÑOS INTMWS During your visit [...] daily. SAY: No Authorizing Provider: TALON BOLAÑOS Renewals Specialist Allergies As of Date: 09/09/2019 (No Known Allergies) Date Reviewed: 08/28/2019 Reviewed by: Lynnette Beebe - Fully Assessed Reason for Visit: Refill Request [94] Visit Diagnoses:Essential hypertension [I10] PAD (peripheral artery disease) ([facility]) [I73.9] Gastroesophageal reflux disease, esophagitis presence not [...] left rotator cuff [S*11/03/2018 More... Atherosclerosis of menominee artery of left lower *07/22/2019 Prescriptions ordered [...] 09/09/19 progress on 2019-08 PROGRESS HNO ID: [id number] Normal 08-25-2019 Jovan Merritt Author: [facility] Service: ? ([id number]) Author Type: Physician Type: Progress Notes Filed: [...] and neuropathy who is here today to [facility] cardiac vascular care. He is scheduled to [...] complete tear of left rotator cuff 11/03/2018 [facility]. - Umbilical hernia without mention of obstruction or gangren e 10/11/2008 PAST SURGICAL HISTORY Procedure Laterality Date - COLONOSCOP W/ OR W/O [facility] SPEC 04/26/2014 Colonoscopy - COLONOSCOP W/ OR W/O [facility] SPEC 05/07/16 Colonoscopy - COLONOSCOPY AND POLYPECTOMY 05/15/10 tubular adenomas removed- [place] - LAMINECTOMY,>2 SGMT,LUMBAR 06/11/2018 [facility] - PAST SURGICAL HISTORY OF 2001 bilat [...] Cardiac Testing Electrocardiogram 08/25/2019: Normal sinus rhythm (CA interv als 160 ms; QRS 104 ms; [...] Visit (AGCARDPOB) Normal 08-25 Jovan TYE Cabello ([id number]) 1940 M Medical Date Time Provider Department Center 08/25/19 1:20 PM LYNNETTE BEEBE AGCSHARONPOSvitlana (65494) During your visit today, we recorded the following informati on about you: Pulse Blood pressure Weight Height 100/minute 140/82 71.7 kg 1.702 m Arlet (Ann-Marie) Pako 08/25/2019 1:23 PM Signed Mr. Vazquez is here as new patient. [...] and neuropathy who is here today to [facility] cardiac vascular care. 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 Atherosclerosis of menominee artery of left lower *07/22/2019 Other instructions [...] on 2019-08 OBSOLETE Procedure (VASSMD) Normal 08-20-2019 [place] [facility] TYE VAZQUEZ ([id number]) 1940 M [place] Date Time Provider Department (34390) 08/20/19 ARON MENA During your visit today, we recorded the following informati on about you: Allergies As of Date: 08/20/2019 (No Known Allergies) Date Reviewed: 08/19/2019 Reviewed by: Aron Mena - Fully Assessed Reason for Visit: Schedule Surgery [1330] Primary Visit Diagnosis:PAD (peripheral artery disease) ([facility] ) [I73.9] Order(s):SURGICAL REQUEST - ELECTIVE [2406444] Order #: [id number]: 1 Prescriptions as of 08/20/2019 Sig: CLOPIDOGREL [...] rotator cuff [S*INVALID FOR* More... 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 ([id number]) Author Type: Physician Type: Progress Notes Filed: 08/19/2019 4:48 PM Note Text: [facility] OUTPATIENT VISIT DATE August 19, 2019 OUTPATIENT VISIT TYPE ESTABLISHED PRIMARY CARE PHYSICIAN: Talon Bolaños MD [address] [place] [address] REFERRING PHYSICIAN Aron Mena MD [address] [facility] [address] CHIEF COMPLAINT: Patient presents with: Established Patient [...] 1 left 0.44 DUS left LE suggest MANTEL CRAFTSMAN and proximal SFA stenoses and left popliteal [...] tear of left rotator cuff 11/03/2018 [facility]. - Umbilical hernia without mention of obstruction or gangren e 10/11/2008 PAST SURGICAL HISTORY Procedure Laterality Date - COLONOSCOP W/ OR W/O [facility] SPEC 04/26/2014 Colonoscopy - COLONOSCOP W/ OR W/O [facility] SPEC 05/07/16 Colonoscopy - COLONOSCOPY AND POLYPECTOMY 05/15/10 tubular adenomas removed- [place] - LAMINECTOMY,>2 SGMT,LUMBAR 06/11/2018 [facility] - PAST SURGICAL HISTORY OF 2001 [...] STRESS NAME : TYE VAZQUEZ Normal 08-19 [facility] LEXISCAN (CARD) PID : [id number] ( [id number]) : 1940 Gender : Male Race : ORD : [id number] Procedure Date : Aug 19 2019 10:12:51 Edit Date : Aug 20 2019 10:17:46 Conclusions:PLEASE REFER TO IMAGING SECTION IN [facility] FOR COMPLETE INTERPRETATION OF STRESS TEST AND MYOCARDIAL PERFUSION IMAGING Protocol Name : Optony Time In Exercise Phase : 00:06:00 Max. Systolic BP : 142 mmHg Max Diastolic BP : 73 mmHg Max Heart Rate : 76 BPM Max Predicted Heart Rate : 141 BPM Recovery ECG Response (OLD) : Reason For Termination : End of Protocol Test Reason : Pre-Op Evaluation Location :[facility] Overread By : CHARLIE MARINA D.O. Edited By : MAGALY LOZANO Referred By : ARON MENA Acquired by : Peggy Evangelista cardiac perf stress/pharm on 2019-08-19 [place] CARDIAC PERF * * *Final Report* * * Normal 1 10-19-2018 [facility] STRESS/PHARM DATE OF EXAM: Aug 19 2019 9:29AM ([id number]) JOSÉ 0006 - NM CARDIAC PERF STRESS/PHARM [...] 60 minutes later. See administered doses below. [facility] Date of service: 08/19/2019 9:29:22 AM Ordering [...] DO on 9 at 3:44:55 PM Final Zinc Skimmer: JESUS Transcribe Date/Time: Aug 19 2019 9:29A Dictated by : CHARLIE MARINA DO This examination was interpreted and the report reviewed and electronically signed by: CHARLIE MARINA DO on Aug 19 2019 3:44PM EST [id number] cnov on 2019-08-19 CNOV Office Visit (VASSMD) Normal 08-19-20 [place] [facility] TEY VAZQUEZ ([id number]) 1940 M [facility] Time Provider Department ([id number]) 08/19/19 11:30 AM ARON MENA During your visit today, we recorded the following informati on about you: Pulse Blood pressure Weight Height 64/minute 112/64 72.7 kg 1.702 m Aron Mena MD 08/19/2019 4:48 PM Signed [facility] OUTPATIENT VISIT DATE August 19, 2019 OUTPATIENT VISIT TYPE ESTABLISHED PRIMARY CARE PHYSICIAN: Talon Bolaños MD [address] [place] [address] REFERRING PHYSICIAN Aron Mena MD [address] [facility] [address] CHIEF COMPLAINT: Patient presents with: Established Patient [...] 1 left 0.44 DUS left LE suggest MANTEL CRAFTSMAN and pro ximal SFA stenoses and left [...] Laterality Date - COLONOSCOP W/ OR W/O [facility] SPEC 04/26/2014 Colonoscopy - COLONOSCOP W/ OR W/O [facility] SPEC 05/07/16 Colonoscopy - COLONOSCOPY AND POLYPECTOMY 05/15/10 tubular adenomas removed- [place] - LAMINECTOMY,>2 SGMT,LUMBAR 06/11/2018 [facility] [place] - PAST SURGICAL HISTORY OF 2001 bilat [...] Aron Mena MD Referring Provider: ARON MENA [[id number]] Allergies As of Date: 08/19/2019 (No Known Allergies) Date Reviewed: 08/19/2019 Reviewed by: Aron Mena - Fully Assessed Reason for Visit: Established Patient Follow-Up [[id number]] Cmt: Test Results Primary Visit Diagnosis:PAD (peripheral [...] rotator cuff [S*INVALID FOR* More... Atherosclerosis of menominee artery of left lower *INVALID FOR* Prescriptions [...] allied health on 01-09-06 ALLIED HNO ID: [id number] Normal 08-19-2019 [facility] Author: Layla LantiguaRt) [facility] Service: ? ([id number]) Author Type: Food Service Driver Type: Allied Health Filed: 08/19/2019 12:35 PM [...] unstable renal function, e.g. those with ac rincon kidney injury, the eGFR may not accurately reflect actual GFR. eGFR- Date Value Ref Range Status 08/17/2019 >60 Final P.O.C.T. RESULTS: N/A August 19, [address] PERFORMED: No IV SITE: Ambulatory: A peripheral IV was started in the [facility] t antecubital site with a Angio cath: 22 gauge. POST EXAM PIV STATUS: Discontinued PROCEDURE TYPE: NM Stress: 12.3mCi Ba36f-Ubfwgmg was adminis tered IV for Rest Imaging at 08:50 by Layla Singh. 32.5 mCi Ul21e-Hd oview was administered IV for Stress Imaging at 10:20 by Layla chavez. PATIENT DISCHARGED TO: Ambulatory patient, left NM [facility]. A Diagnostic radioactive procedure has taken place, with no further precautions necessary other than routine body substance prec autions. More information regarding radiation safety can be found using [facility] link: [email or web address] SIGNATURE: RT Agustin PATIENT NAME: Tye Vazquez DATE: August 19, 2019 TIME: 12:33 PM PAGER/CONTACT #: bennie on 2019-08-18 CNPN Telephone (CDLBME) Normal 08-18-2019 [place] [facility] TYE VAZQUEZ ([id number]) 1940 M ([id number]) Date Time Provider Department 08/18/19 LYNNETTE AUGUSTIN [...] Fully Assessed Reason for Visit: Reminder Call [[id number]] Prescriptions as of 08/18/2019 Sig: TRAMADOL 50 [...] rotator cuff [S*INVALID FOR* More... Atherosclerosis of menominee artery of left lower *INVALID FOR* Encounter Status:Closed by LYNNETTE AUGUSTIN on 08/18/19 psa, diagnostic on 2019-08-17 PSA, Diagnostic <0.03 0.00-2.59 Normal 08-17-2019 [facility] (51377) Comment: Result Comment: Total PSA te st [...] Med 2003,349:335-42. Performed By: #### PSA ####[facility] [address] [place], [place] [phone]- [phone] progress on 2019-08 PROGRESS HNO ID: [id number] Normal 08-17-2019 [facility] Author: Talon Bolaños [place] Service: ? ([id number]) Author Type: Physician Type: Progress Notes Filed: 08/17/2019 2:02 PM Note Text: This note was created using GuideITriter. Subjective Tye Vazquez is a 79 year old male. He continued with product support specialist jennie pain. Patient complains of continuous and [...] Tear of Left Rotator Cuff Atherosclerosis of [place] Artery of Left Lower Extremity Wit h [...] edema. Assessment and Plan 1. Atherosclerosis of menominee artery of left lower extremity with intermittent [...] 2019-08-17 CNOV Office Visit (INTMWS) Normal 08-17-20 [place] [facility] TYE VAZQUEZ ([id number]) 1940 M [place] Date Time Provider Department ([id number]) 08/17/19 11:00 AM TALON BOLAÑOS INTMWS During your visit today, we recorded the following informati on about you: Temperature Pulse Respiration Blood pressure 97.8 degrees 60/minute 20/minute 136/70 Weight 71.2 kg Talon Bolaños MD 08/17/2019 2:02 PM Signed This note was created using GuideITriter. Subjective Tye Vazquez is a 79 year old male. He continued with product support specialist jennie pain. Patient complains of continuous and [...] Tear of Left Rotator Cuff Atherosclerosis of [place] Artery of Left Lower Extremity Wit h [...] edema. Assessment and Plan 1. 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 Atherosclerosis of menominee artery of left lower *INVALID FOR* Prescriptions [...] 2019-08-17 Absolute nRBC <0.01 <0.01 Normal 08-17-2019 [facility] (71851) Comment: Performed By: #### CBC, BMP ####[facility] [address] [place], [place] [phone]- [phone] Erythrocyte distribution 12.9 11.5-15.0 % Normal 08-17 [facility] width (RBC) [Ratio] [place] (87721) Comment: Performed By: #### CBC, BMP ####[facility] [address] [place], [place] [phone]- [phone] Hematocrit (Bld) [Volume 46.8 39.0-51.0 % Normal 08-17 [facility] fraction] [place] (14716) Comment: Performed By: #### CBC, BMP ####[place] [address] [place] [address], [place] [phone]- [phone] Hemoglobin (Bld) 16.1 13.0-17.0 g/dL Normal 08-17-2019 [facility] [Mass/Vol] [place] (02983) Comment: Performed By: #### CBC, BMP ####[place] [address] [address], [place] [phone]- [phone] MCH (RBC) [Entitic mass] 33.3 26.0-34.0 pG Normal 08-17 [facility] (37611) Comment: Performed By: #### CBC, BMP ####[address] [place], [place] [phone]- [phone] MCHC (RBC) [Mass/Vol] 34.4 30.5-36.0 g/dL Normal 08-17-20 19 [facility] (03815) Comment: Performed By: #### CBC, BMP ####[address] [phone]- [phone] MCV (RBC) [Entitic vol] 96.9 80.0-100.0 fL Normal 08-17 [facility] (41036) Comment: Performed By: #### CBC, BMP ####[place] [address] [place], [place] [phone]- [phone] Platelet mean volume 10.9 9.0-12.7 fL Normal 9 [facility] (Bld) [Entitic vol] [place] ([id number]) Comment: Performed By: #### CBC, BMP ####[place] [address], [place] [phone]- [phone] Platelets (Bld) [#/Vol] 240 150-400 k/uL Normal 2018 [facility] (19045) Comment: Performed By: #### CBC, BMP ####[place] [address], [place] [phone] RBC (Bld) [#/Vol] 4.83 4.20-6.00 m/uL Normal 08-17-2019 [facility] (34774) Comment: Performed By: #### CBC, BMP ####[place] [address], [place] [phone] WBC (Bld) [#/Vol] 6.54 3.70-11.00 k/uL Normal 08-17-2019 [facility] (25459) Comment: Performed By: #### CBC, BMP ####[place] [address], [place] [phone]- [phone] basic metabolic panl on 2019-08-17 Anion gap [Moles/Vol] 12 9-18 mmol/L Normal 08-17-20 19 [facility] (76329) Comment: Performed By: #### CBC, BMP ####[place] [address], [place] [phone]- [phone] Calcium [Mass/Vol] 9.9 8.5-10.2 mg/dL Normal 08-17-2019 [facility] (60892) Comment: Performed By: #### CBC, BMP ####[place] [address], [place] [phone]- [phone] Chloride [Moles/Vol] 99 97-105 mmol/L Normal 9 [facility] (05196) Comment: Performed By: #### CBC, BMP ####[place] [address], [place] [phone]- [phone] CO2 [Moles/Vol] 26 22-30 mmol/L Normal 08-17-2019 [facility] (96197) Comment: Performed By: #### CBC, BMP ####[place] [address], [place] [phone]- [phone] Creatinine [Mass/Vol] 1.03 0.73-1.22 mg/dL Normal 08-17-20 19 [facility] (50221) Comment: Performed By: #### SARITA, MAYA ####[facility] [place], [place] [phone]- [phone] eGFR- Amer. >60 Normal 08-17-2019 [facility] (43136) Comment: Performed By: #### SARITA, BMP ####[facility] [place], [place] [id number]- [phone] GFR/1.73 sq M predicted >60 mL/min/{1.73_m2} Normal 08-17-2019 [facility] among non-blacks MDRD [place] ([address]34) (S/P/Bld) [Vol rate/Area] Comment: Result Comment: eGFR [...] actual GFR. Performed By: #### CBC, MAYA ####[facility] [place], [place] [phone]- [phone] Glucose [Mass/Vol] 75 74-99 mg/dL Normal 08-17-2019 [facility] (76602) Comment: Result Comment: The [place] [employer] (ADA) provides guidance for cutoff [...] for diagnosis of diabetes. Reference: Standards of [facility] Care in Diabetes 2016, [place] [employer]. Diabetes Care. 2016.39(Suppl 1). Performed By: #### CBC, BMP ####[place] [address] [place], [place] [phone] Potassium [Moles/Vol] 3.8 3.7-5.1 mmol/L Normal 08-17-20 [facility] (92746) Comment: Performed By: #### CBC, BMP ####[address] [phone] Sodium [Moles/Vol] 137 136-144 mmol/L Normal 08-17-2019 [facility] (32111) Comment: Performed By: #### CBC, BMP ####[address] [phone] Urea nitrogen [Mass/Vol] 18 9-24 mg/dL Normal 08-17 [facility] (15325) Comment: Performed By: #### CBC, BMP ####[address] [phone] cnptoutreach on 201 06-23-22 CNPTOUTREACH Patient Outreach (FAMPST) Normal 1 [place] TYE Carey ([id number]) 1940 M [place] Date Time Provider Department ([id number]) 08/04/19 TALON BOLAÑOS FAMPST During your visit today, we recorded the following informati on about you: Allergies As of Date: 08/04/2019 (No Known Allergies) Date Reviewed: 07/30/2019 Reviewed by: Anuradha LantiguaRn) EMILIANO Corrales - Fully Assessed Visit Diagnoses:Essential hypertension [I10] Medication management [Z79.899] Order(s):BASIC METABOLIC PNL [SQBMP] Order #: [id number] FUT URE CBC [SQCBC] Order #: [id number] FUTURE Prescriptions as of 08/04/2019 Sig: CLOPIDOGREL [...] rotator cuff [S*INVALID FOR* More... Atherosclerosis of menominee artery of left lower *INVALID FOR* Encounter Status:Closed by EPIC, PRODUSER on 08/19/19 progress on 2019-07 PROGRESS HNO ID: [id number] Normal 07-30-2019 [facility] Author: Aron Mena [place] Service: ? ([id number]) Author Type: Physician Type: Progress Notes Filed: 07/30/2019 12:20 PM Note Text: [facility] OUTPATIENT VISIT DATE July 30, 2019 OUTPATIENT VISIT TYPE ESTABLISHED PRIMARY CARE PHYSICIAN: Talon Bolaños MD [address] [place] [address] REFERRING PHYSICIAN Aron Mena MD 0 [facility] [address] CHIEF COMPLAINT: Patient presents with: Follow Up: Test Results HISTORY OF PRESENT ILLNESS: Tye Vazquez was referred for consultation by Dr. Remedios kuhn. Opinions and recommendations in this consultation will be transmitted back to the referring physician by [facility] notes or via mail. ? Mr. [...] 1 left 0.44 DUS left LE suggest MANTEL CRAFTSMAN and proximal SFA stenoses and left popliteal [...] tear of left rotator cuff 11/03/2018 [facility] - Umbilical hernia without mention of obstruction or gangren e 10/11/2008 PAST SURGICAL HISTORY Procedure Laterality Date - COLONOSCOP W/ OR W/O [facility] SPEC 04/26/2014 Colonoscopy - COLONOSCOP W/ OR W/O [facility] SPEC 05/07/16 Colonoscopy - COLONOSCOPY AND POLYPECTOMY 05/15/10 tubular adenomas removed- [place] - LAMINECTOMY,>2 SGMT,LUMBAR 06/11/2018 [facility] - PAST SURGICAL HISTORY OF 2001 [...] may access for administration according to [facility] nursing protocol. Once exam is complete flush [...] DATE OF EXAM: Jul 30 2019 6:27PM [facility] 0122 - CTA ABD/PEL/LOWER EXT W IVCON / 6070 (11509) PROCEDURE REASON: R09.89-Diminished pulses in lower extremit [...] was performed by the physician on an [facility] work station, with MIP and volume-rendering [...] GRANULOMA RIGHT LOWER LOBE; SIGMOID DIVERTICULOSIS . Zinc Skimmer: ERAN Transcribe Date/Time: Jul 31 2019 8:32A Dictated by : ENMANUEL PEÑA MD This examination was interpreted and the report reviewed and electronically signed by: ENMANUEL PEÑA MD on Jul 31 2019 9:05AM EST [id number] creatinine on 07-30 Creatinine [Mass/Vol] >60 Normal 07-30-20 [facility] (99320) Comment: Result Comment: eGFR (Estima carlita GFR) [...] GFR. Performed By: #### CRET1 ### # [facility] [address] [place] [address] Creatinine [Mass/Vol] 0.76 0.73-1.22 mg/dL Normal 07-30-20 [facility] (86716) Comment: Performed By: #### CRET1 ### # [facility] [address] [place] [address] cnov on 2019-07-30 CNOV Office Visit (MARLOT) Normal 07-30-20 [place] [facility] TYE VAZQUEZ ([id number]) 1940 M [place] Date Time Provider Department ([id number]) 07/30/19 11:45 AM ARON MENA During your visit today, we recorded the following informati on about you: Pulse Respiration Blood pressure Weight 67/minute 18/minute 163/71 71.5 kg Aron Mena MD 07/30/2019 12:20 PM Signed [facility] OUTPATIENT VISIT DATE July 30, 2019 OUTPATIENT VISIT TYPE ESTABLISHED PRIMARY CARE PHYSICIAN: Talon Bolaños MD [address] [place] [address] REFERRING PHYSICIAN Aron Mena MD [address] [facility] [address] CHIEF COMPLAINT: Patient presents with: Follow Up: [...] 1 left 0.44 DUS left LE suggest MANTEL CRAFTSMAN and pro ximal SFA stenoses and left [...] complete tear of left rotator cuff 11/03/2018 [facility]. - Umbilical hernia without mention of obstruction or gangren e 10/11/2008 PAST SURGICAL HISTORY Procedure Laterality Date - COLONOSCOP W/ OR W/O [facility] SPEC 04/26/2014 Colonoscopy - COLONOSCOP W/ OR W/O [facility] SPEC 05/07/16 Colonoscopy - COLONOSCOPY AND POLYPECTOMY 05/15/10 tubular adenomas removed- [place] - LAMINECTOMY,>2 SGMT,LUMBAR [facility]11[facility] 2001 bilat [...] daily. For rash/itching. Apply sparingly. Avoid f casron/skin fold. potassium chloride ER (K-DUR, KLOR-CON) 20 [...] Aron Mena MD Referring Provider: ARON MENA [[id number]] Allergies As of Date: 07/30/2019 (No Known Allergies) Date Reviewed: 07/30/2019 Reviewed by: Anuradha (Rn) EMILIANO Corrales - Fully Assessed Reason for Visit: Follow Up [171] Cmt: Test Results Primary Visit Diagnosis:Diminished pulses in lower extremity [R09.89] Other Visit Diagnosis:PAD (peripheral artery disease) (HCC) [I73.9] Order(s):CTA ABD/PEL LOWER EXTREM W IVCO N [[id number]] Order #: [id number] FUTURE iv contrast (will be provided with [...] CONSULT TO PAIN MANAGEMENT [facility]) [[id number] ] Order #: [id number]: 1 CREATININE BLD [SQCRET] Order #: [id number] FUTURE clopidogrel (PLAVIX) 75 mg tabletTake 1 [...] rotator cuff [S*INVALID FOR* More... Atherosclerosis of menominee artery of left lower *INVALID FOR* Prescriptions [...] health on 01-08-17 [facility] HNO ID: [id number] Normal [address] [place] [address] Author: Michael LantiguaRt) Serafin Haddad ([id number]) Service: ? Author Type: Food Service Driver Type: Allied Health Filed: 07/30/2019 6:28 PM [...] unstable renal function, e.g. those with ac rincon kidney injury, the eGFR may not accurately [...] PM progress on 2019-07 PROGRESS HNO ID: [id number] Normal 07-22-2019 [facility] Author: Aron Mena [place] Service: ? ([id number]) Author Type: Physician Type: Progress Notes Filed: 07/22/2019 1:07 PM Note Text: [facility] OUTPATIENT VISIT DATE July 22, 2019 OUTPATIENT VISIT TYPE NEW PRIMARY CARE PHYSICIAN: Talon Bolaños MD [address] [place], [place] [phone] REFERRING PHYSICIAN Talon Bolaños MD [address] [place], [place] [phone] CHIEF COMPLAINT: Patient presents with: New Patient Evaluation HISTORY OF PRESENT ILLNESS: Tye Vazquez was referred for consultation by Dr. Remedios kuhn. Opinions and recommendations in this consultation will be transmitted back to the referring physician by [facility] notes or via mail. Mr. Vazquez [...] tear of left rotator cuff 11/03/2018 [facility]. - Umbilical hernia without mention of obstruction or gangren e 10/11/2008 PAST SURGICAL HISTORY Procedure Laterality Date - COLONOSCOP W/ OR W/O [facility] SPEC 04/26/2014 Colonoscopy - COLONOSCOP W/ OR W/O [facility] SPEC 05/07/16 Colonoscopy - COLONOSCOPY AND POLYPECTOMY 05/15/10 tubular adenomas removed- Frohna - LAMINECTOMY,>2 SGMT,LUMBAR 06/11/2018 [facility] - PAST SURGICAL HISTORY OF 2001 [...] 2019-07-22 CNOV Office Visit (VASSMD) Normal 07-22-20 [place] [facility] TYE VAZQUEZ ([id number]) 1940 M [place] Date Time Provider Department ([id number]) 07/22/19 10:30 AM ARON MENA During your visit today, we recorded the following informati on about you: Pulse Blood pressure Weight Height 75/minute 158/67 71.6 kg 1.702 m Aron Mena MD 07/22/2019 1:07 PM Signed [facility] OUTPATIENT VISIT DATE July 22, 2019 OUTPATIENT VISIT TYPE NEW PRIMARY CARE [place]YSIC[place]: [place] [address] [place], [place] [phone] [place] [address] [place], [place] [phone] CHIEF COMPLAINT: Patient presents with: New Patient Evaluation HISTORY OF PRESENT ILLNESS: Tye Vazquez was referred for consultation by Dr. Ruth phillips. Opinions and recommendations in this consultation arlin l be transmitted back to the referring physician by Epic notes or via mail. Mr. Vazquez is a 79 year old male H [...] tear of left rotator cuff 11/03/2018 [facility]. - Umbilical hernia without mention of obstruction or gangren e 10/11/2008 PAST SURGICAL HISTORY Procedure Laterality Date - COLONOSCOP W/ OR W/O [facility] SPEC 04/26/2014 Colonoscopy - COLONOSCOP W/ OR W/O [facility] SPEC 05/07/16 Colonoscopy - COLONOSCOPY AND POLYPECTOMY 05/15/10 tubular adenomas removed- West - LAMINECTOMY,>2 SGMT,LUMBAR 06/11/2018 [facility] - PAST SURGICAL HISTORY OF 2001 [...] Aron Mena MD Referring Provider: TALON BOLAÑOS [[id number]] Allergies As of Date: 07/22/2019 (No Known Allergies) Date Reviewed: 07/22/2019 Reviewed by: Rehana Dobbins - Fully Assessed Reason for Visit: New Patient Evaluation [154] Primary Visit Diagnosis:PAD (peripheral artery disease) ([facility] ) [I73.9] Other Visit Diagnosis:Atherosclerosis of menominee artery of le ft lower extremity with intermittent claudication ([facility]) [I70.212] Order(s):PVR ANK PRESS W/EXC [facility] [[id number]] Order #: [id number] FUTURE US LEG ARTERIAL PERIPH UNL [facility] [[id number]] Order #: [id number] FUTURE US ABD AORTA COMPLETE [facility] [[id number]] Order #: [id number] FUTURE Prescriptions as of 07/22/2019 Sig: CILOSTAZOL [...] rotator cuff [S*INVALID FOR* More... Atherosclerosis of menominee artery of left lower *INVALID FOR* Encounter Status:Closed by ARON MENA MD on 07/22/19 obsolete on 2019-06 OBSOLETE Refill (INTMWS) Normal 07-09-2019 [place] [facility] VAZQUEZTYE ([id number]) 1940 M [place] Date Time Provider Department ([id number]) 07/09/19 TALON BOLAÑOS INTBROOKE During your visit today, we recorded the following informati on about you: Jes Parra [facility] 07/09/2019 10:15 AM Signed Patient has been identified by name and date of : Yes Pending Prescriptions Disp Refills OMEPRAZOLE 20 MG CAPSULE,DELAYED RELEASE 90 capsule 3 Sig: Take 1 capsule by mouth once daily. SAY: No RX INSTRUCTIONS: Patient aware RX will be sent to pharmacy. No need to notify patient. Jes Parra [facility] Shavonne Fong LPN 07/09/2019 2:43 PM Signed Message left for pt to return call to a nurse. Last month rx sent to [facility]. Still need rx to [facility]? Jossy Laura Pss 07/10/2019 9:21 AM Signed Patient returned call and said it is oka y that Rx was sent to [facility] - no need for Rx to be sent to [facility] - thank you Shavonne Fong LPN 07/10/2019 10:33 AM Signed In review this was sent in May. Faxed to [facility] this info . Allergies As of Date: [...] cuff [S*INVALID FOR* More... Encounter Status:Closed by SHAOVNNE FONG LPN on 07/10/19 progress on 2019-06 PROGRESS HNO ID: [id number] Normal 07-01-2019 [facility] Author: Talon Bolaños [place] Service: ? ([id number]) Author Type: Physician Type: Progress Notes Filed: 07/01/2019 4:27 PM Note Text: This note was created using [email or web address]. Subjective Tye Vazquez is a 79 year [...] 2019-07-01 CNOV Office Visit (INTMWS) Normal 07-01-20 [place] [facility] TYE VAZQUEZ ([id number]) 1940 M [place] Date Time Provider Department ([id number]) 07/01/19 2:40 PM TALON BOLAÑOS INTMWS During [...] issues Primary Visit Diagnosis:PAD (peripheral artery disease) ([facility] ) [I73.9] Other Visit Diagnoses:Essential hypertension [I10] DDD (degenerative disc disease), lumbar [M51.36] Order(s):cilostazol (PLETAL) 50 mg tabletTake 1 tablet by [facility] twice daily.Disp: 60 tabletRfl: 0 CONSULT TO VASCULAR MEDICINE [[id number]] Order #: [id number] : 1 Prescriptions as of 07/01/2019 Sig: [...] - Or thopaedic conc Surgeons Boni gutierrez ([id number]) clinical summary: hmspatientid on 2018-06-26 OOP Invalid 06-26-2018 - [facility] Interpretation Code 06-26-2018 [facility] - [facility]opaedi [facility] Surgeons C brenda ([id number]) office visit: new/est - 1st visit with parker yin, rm: 37 on 2018-03-24 NEGATED: Highlighted Done Invalid 8 - [facility] rowDocumentation of Interpretation 03-24 Orthopaedic current medications Code Center - (procedure) Orthopae dic [facility] Boni gutierrez ([id number]) NEGATED: Highlighted former smoker Invalid 03-24 - [facility] rowTobacco smoking Interpretation 2017 Orthopaedic status NHIS Code Center - Orthopaedi c Surgeons C brenda (92886) NEGATED: Highlighted of the back Invalid 018 - [facility] rowxray history on 02/2018 at Interpretation 2017 [facility] Code [place] [facility] Orthopaedi c Surgeons C brenda ([id number]) clinical summary: scanned ros summary on 2018-03-24 endocrine ROS Denies Invalid 03-24-2018 - [facility] Interpretation 03-24-2018 Orth opaedic Code [facility] Orthopaedi c Surgeons C brenda ([id number]) genitourinary review Denies Invalid 8 - [facility] of systems, E&M Interpretation 8 Orthopaedic Code [facility] Orthopaedi c Sur[facility] C brenda ([id number]) Lymphocytes Denies Invalid 03-24-2018 - [facility] Interpretation 03-24-2018 Orth opaedic Code [place] - [facility] C linaldo (42893) Review of Systems Numbness,Tingl Invalid 018 - [facility] Neurologic comment ing,Weakness Interpretation Orthopaedic Code [place] - [facility] C brenda ([id number]) ROS Cardiac: Ankle Invalid 03-24-2018 - [place] [facility] Comments Swelling,Leg Interpretation 03-24-2018 O rthopaedic Swelling Code [place] - [facility]opaedi c Surgeons C linic ([id number]) ROS cardiovascular Complains Invalid 03-24-2018 - [facility] E&M Interpretation 03-24-2018 Orth opaedic Code Center - Orthopaedi c Surgeons C linic (59748) ROS ENT E&M Denies Invalid 03-24-2018 - [facility] Interpretation 03-24-2018 Orth opaedic Code Center - Orthopaedi c Surgeons C linic ([id number]) ROS gastrointestinal Denies Invalid 8 - [facility] E&M Interpretation 03-24-2018 Orth opaedic Code Center - Orthopaedi c Surgeons C linic ([id number]) ROS general E&M Denies Invalid 03-24-2018 - C rystal Clinic Interpretation 03-24-2018 Orth opaedic Code Center - Orthopaedi c Surgeons C linic ([id number]) ROS Musculoskeletal Joint Invalid 03-24-2018 - [facility] comments Swelling,Muscl Interpretation 03-24-2018 Orthopaedic e Code Center - Cramps,Muscle Orthop aedic Weakness,Pain, Surge ons Clinic Stiffness (41314) ROS musculoskeletal Complains Invalid 03-24-2018 - [facility] E&M Interpretation 03-24-2018 Orth opaedic Code Center - Orthopaedi c Surgeons C linic ([id number]) ROS neurological E&M Complains Invalid 8 - [facility] Interpretation 03-24-2018 Orth opaedic Code Center - Orthopaedi c Surgeons C linic (36817) ROS Psych comment Difficulty Invalid 03-24-2018 - [facility] Sleeping Interpretation 03-24-2018 Orth opaedic Code Center - Orthopaedi c Surgeons C linic (96607) ROS psychiatric E&M Complains Invalid 03-24-2018 - [facility] Interpretation 03-24-2018 Orth opaedic Code Center - Orthopaedi c Surgeons C linic ([id number]) ROS pulmonary E&M Denies Invalid 03-24-2018 - [facility] Interpretation 03-24-2018 Orth opaedic Code Center - Orthopaedi c Surgeons C linic (24545) ROS skin E&M Denies Invalid 03-24-2018 - [facility] Interpretation 03-24-2018 Orth opaedic Code Center - Orthopaedi c Surgeons C linic (51498) clinical summary: scanned history summar y on 2018-03-24 adl form etoh Wine Invalid 03-24-2018 [facility] alcohol Interpretation - Clini c performance Code 03-24-2018 Orthopa edic Center - Orthopaed c [facility]geons Clinic (29904) consumes 1 drink per day Invalid 03-24-2018 Cry stal three or more Interpretation - C linic drinks of Code 03-24-2018 Orthopaed ic alcohol Center - (beer, wine, Orthopa edic liquor) daily Surgeo ns or almost Clinic daily (97157) data entered Yes Invalid 03-24-2018 Maci l by patient, Interpretation - Cli jennie alcohol Code 03-24-2018 Orthopaed ic (ethanol or Center - ETOH) use [facility] (45429) data entered No Invalid 03-24-2018 Maci l by patient, Interpretation - Cli jennie drug (of Code 03-24-2018 Orthopaed ic abuse) use Center - [facility] (88233) data entered No Invalid 03-24-2018 Maci l by patient, Interpretation - Cli jennie exercise Code 03-24-2018 Orthopaed ic history [place] [facility] c Surgeons Clinic (75389) data entered Cancer Invalid 03-24-2018 Maci l by patient, Interpretation - Cli jennie father's Code 03-24-2018 [facility] [place] [facility] history [facility] c Surgeons Clinic (92539) Data entered Hernia repairShoulder surgery Invalid 03-24-2018 [facility] by patient, otherCataract surgeryProstrate Interpr etation - Clinic history of surgery Code 03-24-2018 Orthopae dic past Center - surgeries [facility] (26028) data entered Diabetes - insulin dependent Invalid 03-24-2018 [facility] by patient, Interpretation - Cli jennie mother's Code 03-24-2018 Orthopaed ic medical Center - history Orthopaedi c Surgeons Clinic (39084) data entered High blood pressureArthritis Invalid 03-24-2018 [facility] by patient, Interpretation - Cli jennie past medical Code 03-24-2018 Orthop aedic history [place] [facility] c [facility]geons Clinic (10600) father of Invalid 03-24-2018 [facility] patient is Interpretation - Clin ic alive or Code 03-24-2018 Orthopaed ic Center - [facility] c Surgeons Clinic (32327) medical ArthritisHigh blood pressure Invalid 0 03-24-2018 [facility] history of Interpretation - Clin ic patient's Code 03-24-2018 Orthopaed ic [facility] (13514) medical HyperthyroidismArthritisHigh Invalid 0 03-24-2018 [facility] history of blood pressure Interpretation - Clinic patient's Code 03-24-2018 [facility] (93738) mother of Invalid 03-24-2018 [facility] patient is Interpretation - Clin ic alive or Code 03-24-2018 Orthopaed ic [facility] (06715) clinical summary: hmspatientid on 2018-03-24 OOP Invalid 03-24-2018 - [facility] Interpretation Code 03-24-2018 [facility] linic (57605) Vital Signs Vital Sign Description Value / Unit Date Location The following section is limited to 5 en tries per type and includes entries from the following time range: [id number] - [id number] 3. NEGATED: Highlighted 24.57 kg/m2 06-26-2018 - 06-26-2018 [facility] rowBMI (Body Mass Index) [facility] Orthopaedic [facility]urg [facility] (02228) NEGATED: Highlighted 25.79 kg/m2 03-24-2018 - 03-24-2018 [facility] rowBMI (Body Mass Index) [facility] (97990) NEGATED: Highlighted 70 mm[Hg] 06-26-2018 - 06-26-2018 [facility] rowBP Diastolic Orthopaedic [facility] Orthopaedic [facility]urg [facility] (12806) NEGATED: Highlighted 80 mm[Hg] 06-26-2018 - 06-26-2018 [facility] rowBP Diastolic [facility] (44296[facility] NEGATED: Highlighted 82 mm[Hg] 03-24-2018 - 03-24-2018 [facility] rowBP Diastolic Orthopaedic [facility] Orthopaedic Surg [facility] (20107) NEGATED: Highlighted 81 mm[Hg] 03-24-2018 - 03-24-2018 [facility] rowBP Diastolic [facility]opaedic [facility] Orthopaedic Surg [facility] (81454) NEGATED: Highlighted 146 mm[Hg] 06-26-2018 - 06-26-2018 [facility] rowBP Systolic Orthopaedic Cent - Orthopaedic Surg [facility] (99325) NEGATED: Highlighted 163 mm[Hg] 06-26-2018 - 06-26-2018 [facility] rowBP Systolic Orthopaedic Cent er - Orthopaedic Surg eons Clinic (15572) NEGATED: Highlighted 168 mm[Hg] 03-24-2018 - 03-24-2018 [facility] rowBP Systolic Orthopaedic Cent er - Orthopaedic Surg eons Clinic (66311) NEGATED: Highlighted 176 mm[Hg] 03-24-2018 - 03-24-2018 [facility] rowBP Systolic Orthopaedic Cent er - Orthopaedic Surg eons Clinic (49868) NEGATED: Highlighted 173 cm 06-26-2018 - 06-26-2018 [facility] rowHeight Orthopaedic Cent er - Orthopaedic Surg eons Clinic (52170) NEGATED: Highlighted 172.72 cm 06-26-2018 - 06-26-2018 [facility] ([id number]) NEGATED: Highlighted 172.72 cm 03-24-2018 - 03-24-2018 [facility] ([id number]) NEGATED: Highlighted 173 cm 03-24-2018 - 03-24-2018 [facility] ([id number]) NEGATED: Highlighted 55 /min 06-26-2018 - 06-26-2018 [facility] rowPulse (Heart Rate) [facility] ([id number]) NEGATED: Highlighted 47 /min 03-24-2018 - 03-24-2018 [facility] rowPulse (Heart Rate) [facility] ([id number]) NEGATED: Highlighted 73.03 kg 06-26-2018 - 06-26-2018 [facility] ([id number]) NEGATED: Highlighted 73 kg 06-26-2018 - 06-26-2018 [facility] ([id number]) NEGATED: Highlighted 76.66 kg 03-24-2018 - 03-24-2018 [facility] ([id number]) NEGATED: Highlighted 77 kg 03-24-2018 - 03-24-2018 [facility] ([id number]) Encounters Date Type Reason Provider Location 06-26-2018 - Patient encounter Esperanza Shah inic 06-26-2018 [facility] ([id number]) 03-24-2018 - Patient encounter Dinorah Shah in 03-24-2018 procedure [place] [facility] ([id number]) 03-24-2018 - Pt evaluation Dinorah Scott [facility] 03-24-2018 [place] [facility] ([id number]) 06-16-2020 - Refill [facility] 06-16-2020 lumbar intervertebral Bolaños Wooste r disc Comment: Refill Request Procedures Procedure Name Date Provider Location Antibody screen 09-21-2019 [facility] ([id number]) Comment: Performed By: #### TSCR #### [facility] [id number] [place] [id number] Antibody screen 09-15-2019 [facility] ([id number]) Comment: Performed By: #### TSCR #### [facility] [id number] Blood pressure outside 06-26-2018 - [facility]peranza [facility] of normal parameters - 06-26-[address] [facility] - follow-up documented [facility] ([id number]) BMI documented within 06-26-2018 - Esperanza Fletcher [facility] normal parameters - no 06-26-[address] [facility] Center - follow-up plan is [facility] required Clinic ([id number]) Current medications 06-26-2018 - Esperanza Fletcher [facility] documented 06-26-[address] [facility] ([id number]) Pain assessment 06-26-2018 - Esperanza Scott Cl[facility] documented as negative 06-26-[address] [facility] Orthopaed ic Center - - follow-up not [facility] required Clinic ([id number]) Tobacco non-user 06-26-2018 - Esperanza Fletcher [facility] 06-26-[address] [facility] ([id number]) Blood pressure outside 03-24-2018 - Dinorah Conley [facility] of normal parameters - 03-24-[address] [facility] Orth[facility]ed ic Center - follow-up documented [facility] ([id number]) BMI documented as 03-24-2018 - Dinorah Scott Cli jennie above normal 03-24-[address] [facility] Orthopaedic Cent er - parameters - follow-up [facility]opaed ic Surgeons documented Clinic ([id number]) Current medications 03-24-2018 - Dinorah Scott C linic documented 03-24-[address] [facility] ([id number]) Pain assessment 03-24-2018 - Dinorah Scott Clini [facility] documented as positive 03-24-[address] [facility] Orthopaed ic Center - - follow-up documented [facility] ([id number]) Tobacco non-user 03-24-2018 - Din[facility]ah Scott Clin ic 03-24-[address] [facility]edic [facility] ([id number]) Plan of Treatment Plan Description Date Location LIPID SCREEN LIPID SCREEN 11-17-2024 [facility] ([id number]) DIABETES SCREEN DIABETES SCREEN 11-17-2022 [facility] ([id number]) DTAP,TDAP,TD (2 - Td) DTAP,TDAP,TD (2 - Td) 08-09-2021 [facility] ([id number]) BP CONTROLLED (<130/80) BP CONTROLLED (<130/80) 04-01-2021 [facility] ([id number]) ANNUAL PCP TEAM CHRONIC ANNUAL PCP TEAM CHRONIC 03-08-2021 [facility] DISEASE VISIT DISEASE VISIT ([id number]) INFLUENZA (#1) INFLUENZA (#1) 2020 [facility] ([id number]) Appointment Appointment 06-26-2018 - [facility] 06-26-2018 [facility] ([id number]) Appointment Appointment 03-24-2018 - [facility] 03-24-2018 [facility] ([id number]) SHINGRIX VACCINE (2 of SHINGRIX VACCINE (2 of 09-17-2015 [facility] 3) 3) ([id number]) ADVANCE DIRECTIVE ADVANCE DIRECTIVE 02-22-2005 [facility] inic DISCUSSION DISCUSSION ([id number]) Patient education \cps-[email or web address]\CPS_PtEducati Maci l Clinic on\htn.pdf [facility] ([id number]) Immunizations Vaccine Notes Status Date Location Influenza Vaccine, influenza virus (completed) 08-31-2013 [facility] Split-Non Spec vaccine, unspecified (4419 5) formulation Influenza Vaccine, influenza virus (completed) 08-11-2012 [facility] Split-Non Spec vaccine, unspecified (4419 5) formulation Influenza Vaccine, influenza virus (completed) 08-09-2011 [facility] Split-Non Spec vaccine, unspecified (4419 5) formulation Influenza Seasonal - influenza, high dose (completed) 08-17-2019 [facility] High Dose - Age 65+ seasonal, (50199) preservative-free Influenza Seasonal - influenza, high dose (completed) 06-19-2018 [facility] High Dose - Age 65+ seasonal, (93838) preservative-free Influenza Seasonal - influenza, high dose (completed) 07-05-2016 [facility] High Dose - Age 65+ seasonal, (76344) preservative-free Influenza Seasonal - influenza, high dose (completed) 07-24-2014 [facility] High Dose - Age 65+ seasonal, (30242) preservative-free Influenza Seasonal influenza, seasonal, (completed) 07-23-2015 [facility] Inj Age 3+ injectable (33283) No information No information (completed) [facility] jennie available. available. Orthopaedic [address] - [facility]opa[facility] Surgeons [facility] ([id number]) Pneumococcal-13 Vac pneumococcal conjugate (completed) 09-19-2015 [facility] Conjugate vaccine, 13 valent (34295) Pneumovax pneumococcal (completed) 03-19-2007 [facility] c polysaccharide vaccine, (441 95) 23 valent Tdap (Age 7+) tetanus toxoid, reduced (completed) 08-09-2011 [facility] diphtheria toxoid, and (4419 5) acellular pertussis vaccine, adsorbed Zostavax zoster vaccine, live (completed) 07-23-2015 [facility] ([id number]) Payers Payer Name Policy Number Location [employer] [id number] [facility] ([id number]) The following information is from the original human readable contentNo Payer Records FoundNo Payer Records FoundNo Payer Records FoundNo Payer Records FoundNo Payer Records Found Social History Type Social History Date Location Description NEGATED: Highlighted DRUG USE No 03-24-2018 - [facility] jennie rowDetails of drug misuse 03-24-2018 [facility] ([id number]) History of tobacco use Cigarette Smoker [facility] (32994) NEGATED: 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 03-24-2018 [facility] Surg eons [facility] ([id number]) NEGATED: Highlighted Former smoker 03-24-2018 - [facility] jennie rowAssertion 03-24-2018 [facility]urg [facility] (48567) Assertion Unknown if ever smoked 06-26-2018 - [facility]inic 06-26-2018 [facility] Surg ns [facility] (80634) Tobacco smoking status Current every day 04-01-2020 [facility] NHIS smoker (67323) NEGATED: Highlighted ETOH USE Yes 03-24-2018 - [facility] jennie rowAlcohol use 03-24-2018 [facility]urg [facility] ([id number]) Tobacco use and exposure Never used 04-01-2020 [facility] (84842) Alcohol intake Current drinker of 04-01-2020 [facility] jennie alcohol (finding) (52045) Alcohol intake 04-01-2020 [facility] (41075) Tobacco Comment 2-3 per day 09-18-2019 [facility] (26873) Alcohol Comment 1/2 oz at night 11-07-2016 [facility] (22978) Sex Assigned At Not on file [facility] (05171) The following information is from the original human readable contentNo Social History Records FoundNo Social History Records FoundNo Social History Records FoundNo Social History Records FoundNo Social History Records Found Medical Equipment Equipment Code (if Equipment Original Equipment Procedure Code D ates provided) Text (if provided) Identifier (if (if provided) provided) Patch Xenosure [id number] 09-21-2019 Bovine Pericardium [id number] Vascular Sterile Disposable - [id number] Instructions Instruction Description Start Date CompletedPlease follow-up with Primary Care Physician or Data Entry Representative for treatment or adjustment of medication regarding elevat ed blood pressure.Patient advised to follow-up with Primary Car e Physician for BMI management. Instruction Description Start Date CompletedPlease follow-up with Primary Care Physician or Data Entry Representative for treatment or adjustment of medication regarding elevat ed blood pressure. 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 Inguinal hernia 01/20/2018 06/20/2018 Overview: Added automatically from request for elda becky [id number] Clostridium difficile colitis 05/14/2017 06/20/2018 Right-sided low back pain with right-sided sciatica 10/03/20 15 05/15/2016 Rotator cuff impingement syndrome of right shoulder 04/10/20 15 11/19/2019 Medicare annual wellness visit, subsequent 04/10/2015 06/20/2018 Inguinal neuralgia 03/12/2013 11/07/2016 Diarrhea 12/05/2010 09/06/2014 Frequency of urination 10/02/2010 11/07/2016 Malignant neoplasm of prostate 02/07/2010 7 Overview: Dr. Littlejohn- oncologist at [facility] er Rotator cuff (capsule) sprain 09/20/2009 11/07/2016 [...] BE BASED ON THE PRIMARY CLINICAL RECORDS. [employer] [facility] provides no warranty or guarantee of the accuracy or completeness of information in this document. UNRECOGNIZED CONTENT PROVIDED BELOW FOR UNRECOGNIZED SECTION No Status Records FoundNo Status Records FoundNo Status Records Found UNRECOGNIZED CONTENT PROVIDED BELOW FOR UNRECOGNIZED SECTION INFORMATION SOURCE DATE CREATED AUTHOR AUTHOR'S ORGANJENNIFERATIO N 10/06/2019 [facility] DATE CREATED AUTHOR AUTHOR'S ORGANIZATIO N 02/27/2020 [facility] DATE CREATED AUTHOR AUTHOR'S ORGANIZATIO N 06/17/2020 [facility] UNRECOGNIZED CONTENT PROVIDED BELOW FOR UNRECOGNIZED SECTION Source Comments In the event this information is protected by the Federal Confidentiality of Alcohol and Drug Abuse Patient Records regulations: The Federal rules restrict any use of the information to criminally investigate or prosecute any alcohol or drug abuse patient.[facility] UNRECOGNIZED CONTENT PROVIDED BELOW FOR UNRECOGNIZED [...]
== END 2020-03-07 14:47 | disposition home or self-care (01) ==
PROVIDERS: Emergency Provider Emergency Medicine; PCP Internal Medicine
DX: M71.21 Synovial cyst of popliteal space [Baker], right knee (principal); I10 Essential (primary) hypertension; K58.9 Irritable bowel syndrome, unspecified; F17.200 Nicotine dependence, unspecified, uncomplicated; Z79.82 Long term (current) use of aspirin; Z79.01 Long term (current) use of anticoagulants; Z79.899 Other long term (current) drug therapy
CPT/HCPCS: 93971; 99283

== ENCOUNTER 2020-11-03 12:12 | Emergency (ER) | payer MEDICARE, SELFPAY ==
[2020-11-03 12:14] VITALS: BP 158/65; PULSE 79; RESP 16; TEMP 36.5; O2SAT 94; BMI 23.5
--- NOTE | 2020-11-03 12:22 | ED.VIS.GEN ---
History of Present Illness Chief Complaint: Complaint Informant: Patient Narrative: Male presenting with right-sided flank pain and dysuria for about a week. He was seen by urgent care prior to arrival who told him he had a urinary tract infection and they were concerned for kidney infection. Patient reportedly had a fever of 101 at the urgent care however he is afebrile here. He has not taken any medication that would mask a fever. Patient states he does have history of UTI in the past. This has been an issue since 2002. He denies nausea, vomiting. He denies change in stool habits. - Past Medical History (1) Hypertension Status: Chronic (2) IBS (irritable bowel syndrome) Status: Chronic Past Medical History - Allergies and Home Meds Allergies/Adverse Reactions: Allergies No Known Allergies Allergy (Verified 11/03/20 12:13) Primary Care Physician: Talon Bolaños MD [Primary Care Provider] - Prior records reviewed: Yes Past Medical History: - - Reviewed in problem list Surgical History: noncontributory, - - reports 2 colonoscopies int he past, hernia repair, shoulder surgery. Lives: Alone Smoking Status: Current every day smoker - Family History Maternal Family History: Family History (Last Reviewed 03/06/18 @ 12:19 by Millie Jacques) Other Arthritis Cancer Hypertension Myocardial infarction Family History: Reports: Diabetes, - - strokes Paternal Family History: Family History (Last Reviewed 03/06/18 @ 12:19 by Millie Jacques) Other Arthritis Cancer Hypertension Myocardial infarction Family History: Reports: - - leukemia Review of Systems General: Reports: Fever. Denies: Chills Eyes: Denies: Visual changes - bilaterally, Diplopia ENT: Denies: Rhinorrhea, Sore throat Cardiovascular: Denies: Chest pain, Palpitations Respiratory: Denies: Dyspnea, Cough, Dyspnea on exertion Gastrointestinal: Reports: Abdominal pain. Denies: Vomiting, Diarrhea Genitourinary: Reports: Dysuria, Frequency Musculoskeletal: Reports: Back pain - Right flank. Denies: Myalgias, Arthralgias Skin: Denies: Rash, Abscess Neurological: Denies: Headache, Parasthesia, Numbness Psych: Denies: Depression, Anxiety Physical Exam Vital Signs/Narrative: Vital Signs Temp Pulse Resp BP Pulse Ox 11/03/20 12:14 97.7 F L 79 16 158/65 H 94 General: Well nourished, Well developed, No Acute Distress Head: Normocephalic, Atraumatic Eyes: Perrl, EOMI ENT: Moist mucous membranes, No rhinorrhea Cardiovascular: Regular rate, Regular rhythm Respiratory: No distress, CTA bilaterally Abdomen: Soft, Nondistended, Normal bowel sounds Back: CVA tenderness - Right-sided. Negative for: Spinal tenderness Extremities: Negative for: Nontender, No edema Skin: Normal color, No rash. Negative for: Cyanosis, Diaphoresis Neurological: Alert, Oriented x3 Psychological: Normal affect, Normal Mood Diagnostic/Tx/Re-eval - Medical Decision Making 80-year-old male presenting for evaluation of possible pyelonephritis. Patient was sent from urgent care for evaluation. Patient does describe some dysuria as well as right flank pain. He denies history of kidney stones. CBC is within normal limits. Renal function is normal. Patient's potassium is 3.0 and was given 40 mEq of calcium in the ED. urinalysis is consistent with UTI given his right flank pain will treat him like pyelonephritis. He is given first dose of antibiotics in the ED. Urine culture was sent. Patient safe for discharge at this time. Impression: 1. Pyelonephritis ED Disposition - Plan for ED Patient: Disposition: Home or Assisted Living Instructions: Pyelonephritis Referrals: Talon Bolaños MD [Primary Care Provider] -
--- NOTE | 2020-11-03 12:32 | CT_ITS ---
STUDY: CT ABDOMEN AND PELVIS WITHOUT CONTRAST REASON FOR EXAM: Male, 80 years old. RT FLANK PAIN/BURNING WITH URINATION X SEVERAL DAYS. Hx of prostate cancer with seed implants and prior hernia surgery RADIATION DOSAGE (If Supplied By Facility): CTDIvol = ( 6.81 ) mGy, DLP = ( 340.47 ) mGycm TECHNIQUE: Transaxial images were obtained from the dome of the diaphragm to the symphysis pubis without oral contrast, and without intravenous contrast. Sagittal and coronal images were reconstructed. Individualized dose optimization techniques were used for this CT. COMPARISON: Comparison is made with prior examination dated 05/13/2017. FINDINGS: Stable minimal scarring at the lung bases. Coronary artery calcification. Normal liver. Normal gallbladder and extrahepatic biliary system. Normal spleen. Normal pancreas. Normal bilateral adrenal glands. Normal right kidney. Normal left kidney. There is a small hiatal hernia. Normal small intestine. There are multiple colonic diverticula consistent with diverticulosis. The appendix is visualized and appears normal. There is diffuse atherosclerotic calcification of the abdominal aorta and its major visceral branches, without a demonstrated aneurysm. Normal inferior vena cava. Normal retroperitoneum. Mild degree of diffuse bladder wall thickening. 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 Normal abdominal wall. There are diffuse degenerative changes of the visualized lumbar spine. Dextroscoliosis. CT/Abdomen/Pelvis without Cont IMPRESSION: No acute abnormality is seen. Electronically Signed: Artur Ayala MD at 13:34 EST , Service support ,
[2020-11-03 12:53] LABS: Absolute Lymphocyte Count 0.56 X10^3/uL (0.83-4.51); Absolute Neutrophil Count 6.7 X10^3/uL (2.0-7.7); Basophil# 0.03 X10^3/uL; Basophil% 0.4 % (0-1); Eosinophil# 0.04 X10^3/uL; Eosinophils% 0.5 % (0-5); Hematocrit 44.3 % (40-54); Lymphocyte # 0.56 X10^3/ul (4.0); Lymphocyte % 6.9 % (19-41); Mean Corp Hgb Conc 33.9 g/dL (32-36); Mean Corpuscular Hgb 32.1 pg (27.0-32.0); Mean Corpuscular Volume 94.9 fL (80-94); Mean Platelet Vol. 10.8 fl (6.2-12.0); Monocyte# 0.78 X10^3/uL; Monocyte% 9.6 % (0-10); NRBC Flagged by Analyzer 0 % (0-5); Neutrophil # 6.71 X10^3/uL (2.7-7.7); Neutrophil % 82.2 % (47-70); POSITIVE COUNT YES; POSITIVE DIFFERENTIAL YES; Platelet Count 189 K/mm3 (150-450); RBC Distribution Width SD 48.9 fl (35.1-43.9); Red Blood Count 4.67 M/mm3 (4.6-6.2); White Blood Count 8.2 K/mm3 (4.4-11.0)
[2020-11-03 12:58] LABS: Differential Indicated SCAN CRITERIA MET
[2020-11-03 13:01] LABS: Anion Gap 6 (5-15); BUN 16 mg/dL (7-18); BUN/Creat Ratio 13.8 RATIO (10-20); Calcium,Total 9.3 mg/dL (8.5-10.1); Chloride 108 mmol/L (98-107); Creatinine, Serum 1.16 mg/dL (0.70-1.30); EST Glomerular Filtration Rate 64 mL/min (>60); Est Glom Filt Rate - Afr Amer 78 mL/min (>60); Estimated Creatinine Clearance 47.49 ml/min; Glucose 88 mg/dL (74-106); Sodium Level 140 mmol/L (136-145)
[2020-11-03] MEDS: Ketorolac 15 MG/ML Vial IV (13:08)
[2020-11-03 13:13] LABS: Differential Comment SCANNED
[2020-11-03 14:07] LABS: Mucous, Urine 0 SEEN /hpf (<or=2+)
[2020-11-03 14:23] LABS: Color, Urine Yellow (Yellow); Glucose, Dipstick Normal (Normal); Ketone-Dipstick Negative (Negative); Leukocyte Esterase-Dipstick 500 /ul (Negative); Nitrite-Dipstick Positive (Negative); Occult Blood-Urine 50 /ul (Negative); Protein-Dipstick 100 mg/dl (Negative); Urine Bilirubin Dipstick Negative (Negative); Urine Clarity Sl. Cloudy (Clear); Urine Urobilinogen Normal (Normal); Urine pH 6.5 (5.0 - 8.0)
[2020-11-03 14:30] LABS: Bacteria 2+ /hpf (None Seen); Red Blood Cells-Urine 0-5 SEEN /hpf (0-5); Squamous Epithelial Cells - UA 0-5 SEEN /hpf (0-5); White Blood Cells 50-100 SEEN /hpf (0-5)
[2020-11-03] MEDS: Smz/Tmp Ds Tablet 1 TABLET PO (14:50)
[2020-11-03 14:51] VITALS: BP 134/77; PULSE 62; RESP 15; O2SAT 99
== END 2020-11-03 14:52 | disposition home or self-care (01) ==
PROVIDERS: Emergency Provider Student in an Organized Health Care Education/Training Program; PCP Internal Medicine
DX: N12 Tubulo-interstitial nephritis, not specified as acute or chronic (principal); I10 Essential (primary) hypertension; K58.9 Irritable bowel syndrome, unspecified; F17.200 Nicotine dependence, unspecified, uncomplicated; Z87.440 Personal history of urinary (tract) infections; Z79.82 Long term (current) use of aspirin; Z79.899 Other long term (current) drug therapy
CPT/HCPCS: 74176; 80048; 81001; 85025; 87077; 87086; 87088; 87186; 96374; 99285; A4216

== ENCOUNTER → 2022-10-16 | Outpatient (CLI) | payer BC, SELFPAY ==
[2022-10-16 12:43] LABS: Magnesium 1.8 mg/dL (1.6-2.6)
== END | disposition home or self-care (01) ==
PROVIDERS: PCP Internal Medicine; Referring Provider Nurse Practitioner; Visit Provider Nurse Practitioner
DX: M79.661 Pain in right lower leg (principal); M79.662 Pain in left lower leg
CPT/HCPCS: 83735

== ENCOUNTER 2024-04-06 14:47 | Emergency (ER) | payer MEDICARE, SELFPAY ==
[2024-04-06 14:47] VITALS: BP 176/78; PULSE 70; RESP 14; TEMP 37.2; O2SAT 95
[2024-04-06 14:49] VITALS: BMI 23.6
--- NOTE | 2024-04-06 15:10 | RAD_ITS ---
STUDY: X-RAY - LEFT HAND, ATTENTION LEFT THUMB. REASON FOR EXAM: Male, 84 years old. Atraumatic pain. TECHNIQUE: 3 view(s) of the finger were obtained. COMPARISON: None. FINDINGS: Normal metacarpal head. Normal metacarpophalangeal joint. Normal proximal phalanx. Normal distal phalanx. There is moderate degenerative arthrosis of the distal interphalangeal joint. RAD/Finger(s) Min 2 Views IMPRESSION: Degenerative changes. No fracture is seen. Electronically Signed: Artur Ayala MD at 15:32 EDT ,
--- NOTE | 2024-04-06 15:10 | RAD_ITS ---
STUDY: X-RAY - RIGHT KNEE REASON FOR EXAM: Male, 84 years old. Knee pain. No known injury. TECHNIQUE: 4 view(s) of the knee. COMPARISON: None. FINDINGS: Normal visualized distal femur. Normal visualized proximal tibia and fibula. Normal proximal tibiofibular articulation. There is severe degenerative arthrosis of the medial femorotibial compartment with severe joint space narrowing. Normal lateral femorotibial compartment. There is moderate degenerative arthrosis of the patellofemoral articulation. There are atherosclerotic calcifications. RAD/Knee 3 Views IMPRESSION: Degenerative arthrosis. Electronically Signed: Artur Ayala MD at 15:31 EDT ,
--- NOTE | 2024-04-06 16:08 | ED.VIS.LOWEX ---
HPI History of Present Illness Chief Complaint: Lower Extremity Injury Detail of Chief Complaint: Atraumatic right knee pain and see HPI narrative Informant: patient and family Onset/Context/Timing Onset: Today Context: Sudden Onset Timing: Continuous Quality of Pain: Aching Location: Right knee Current Severity: Mild Maximum Severity: Severe Worsened by: Movement and weightbearing Relieved by: Nothing Associated Symptoms Associated Symptoms: Positive for Parasthesia (Paresthesia of feet for some time. Patient is a short distance claudicate) Narrative Narrative: Patient is a 84-year-old male who presents with atraumatic right knee pain. He denies pain in the past month. He has not had images in the past. There is no history of trauma. He does have symptoms of claudication. He is able to walk 15 feet before he gets bilateral lower extremity pain that goes away with rest. He complains of persistent numbness and tingling in his feet. He is a smoker. He has smoked for many years. He denies fever, chills night sweats. He denies history of gout or pseudogout. He is not on a thiazide diuretic. He denies fever, chills night sweats. He does have a history of hypertension, hypercholesterolemia. Prior similar symptoms: No Recent Illness/Hospitalization: No [facility] Medical History (Updated 04/06/24 @ 16:[address] Kenji Belcher MD) History of prostate cancer GERD (gastroesophageal reflux disease) IBS (irritable bowel syndrome) Hypertension Arthritis Home Medications ?Medication ?Instructions ?Recorded ?Last Taken ?Type amlodipine 10 mg tablet 10 mg PO DAILY HTN 05/13/17 01/20/18 History 10 MG aspirin 81 mg chewable tablet 81 mg PO DAILY@0800 health 05/13/17 01/19/18 History maintenance 81 MG atorvastatin 10 mg tablet 10 mg PO QHS CHOLESTEROL 05/13/17 05/13/17 History lisinopril 20 mg tablet 40 mg PO QHS HTN 05/13/17 01/20/18 History 20 MG omeprazole 20 mg capsule,delayed 20 mg PO DAILY acid reflux 05/13/17 01/19/18 History release 20 MG metoprolol tartrate 50 mg tablet 50 mg PO BID #60 tabs 05/14/17 01/19/18 Rx 50 MG acetaminophen 325 mg capsule 650 mg PO Q4H PRN PRN PAIN/FEVER 11/03/20 Unknown History doxazosin 1 mg tablet 1 mg PO QHS 11/03/20 Unknown History gabapentin 600 mg tablet 600 mg PO QHS 11/03/20 Unknown History sulfamethoxazole 800 1 tab PO BID #14 tabs 11/03/20 Unknown Rx mg-trimethoprim 160 mg tablet Allergy/AdvReac Type Severity Reaction Status Date / Time No Known Allergies Allergy Verified 04/06/24 14:47 Family History Other Arthritis Cancer Hypertension Myocardial infarction Surgical History History of hernia repair Hx of rotator cuff surgery Social History Smoking Status: Current every day smoker tobacco type: cigarettes alcohol intake: never substance use type: does not use what type of physical activity do you participate in: none ROS ROS ED Constitutional Constitutional ED: Denies chills, fever(s), subjective, sweats or weight loss Eyes Eyes: Denies blurry vision, change in vision or diplopia Respiratory/Chest Respiratory/Chest: Denies cough or dyspnea Gastrointestinal Gastrointestinal: Denies abdominal pain, nausea or vomiting Musculoskeletal Musculoskeletal: Reports other Details: Right knee pain ; Denies arthralgias, back pain, myalgias or neck pain Neurologic Neurologic: Reports paresthesias; Denies weakness Hematologic/Lymphatic Hematologic/Lymphatic: Denies easy bleeding or easy bruising EXAM Physical Exam Const Vital Signs: 04/06/24 14:47 Temperature 98.9 F Temperature Source Temporal Pulse Rate 70 Respiratory Rate 14 Blood Pressure 176/78 H Blood Pressure Mean 110 Pulse Ox 95 Oxygen Delivery Method Room Air Positive well nourished and well developed General Appearance ED: well developed and NAD HEENT atraumatic Eyes PERRL Neck full ROM Resp normal respiratory effort Cardio regular rate and regular rhythm Extremity Negative for normal to inspection Extremity Narrative: Patient has stigmata of peripheral arterial disease. There is no hair on his toes or distal legs. He has thickening of his toenails. There is no palpable DP or PT pulse. Patient has monophasic flow DP and PT right and left. Slightest pressure on the left PT artery occludes his flow. The right DP is worse than the left. Patient's right knee is swollen. There is an effusion. The patella is not ballotable. He has slight laxity of the MCL with valgus stress testing. There is no laxity of the lateral collateral ligament. Patient able to extend 180 degrees. Is able to flex to 90 degrees. There is no palpable pulsatile mass in the popliteal fossa. There is no warmth of the knee, there is no erythema. He has no inguinal lymphadenopathy. Capillary refill is 2 to 3 seconds. His toes are warm. He complains of numbness of the right and left foot. General Extremety ED: Negative for cyanosis or edema General Extremity: Negative for cyanosis or edema Neuro oriented x3, CN's II-XII intact bilaterally and moves all extremities Sensorium / Orientation: alert Psych mental status grossly normal Skin Skin Narrative: Dry skin. 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 Patient's history and physical and x-ray findings are consistent with osteoarthritis. Patient has significant atherosclerotic disease noted on x-ray. He complains of knee pain and reason x-ray was obtained per nurse protocol. He also complained of thumb pain which is resolved and reason for x-ray. He presently denies thumb pain. Cap refill is normal. He is able to extend and flex all the thumb. Micheal test is negative. There is no laxity at stressing of the ulnar collateral ligament. Median, radial and ulnar function intact. Radiography Chest X-Ray - ED: Read by ED Physician (4 view x-ray of the knee reveals a small effusion. There is significant arthritic changes and atherosclerotic disease noted. There is no foreign body noted. There is no fracture noted.) and - (Three-view x-ray of the thumb was obtained which reveals arthritic changes. There is no fracture, subluxation dislocation noted per my independent review of the x-ray.) Diagnostic Testing: Clinical Impression(s) from Imaging Studies Finger X-Ray 04/06/24 15:10 IMPRESSION: Degenerative changes. No fracture is seen. Electronically Signed: Artur Ayala MD at 15:32 EDT , Knee X-Ray 04/06/24 15:10 IMPRESSION: Degenerative arthrosis. Electronically Signed: Artur Ayala MD at 15:31 EDT , Treatment and Re-Evaluation Narrative: Patient was told he needs to progress back to cigarettes. He was referred to Dr. Mosquera who was made aware of patient's. He is to call office and will be seen this week. He also was referred to Dr. Kinney and with regards to his knee pain. Discharge Plan Triage Chief Complaint: Lower Extremity Injury ED Provider: Kenji Belcher Dx/Rx/DC Orders Clinical Impression: Peripheral arterial disease, Osteoarthritis of right knee, Effusion of knee joint right, History of hypertension Instructions: PAD, ED Osteoarthritis Prescriptions: No Action atorvastatin 10 MG tablet 10 mg PO QHS lisinopril 20 MG tablet 40 mg PO QHS Patient Comments: amlodipine 10 MG tablet 10 mg PO DAILY Patient Comments: omeprazole 20 MG capsule,delayed release(DR/EC) 20 mg PO DAILY Patient Comments: aspirin 81 MG tablet,chewable 81 mg PO DAILY@0800 metoprolol tartrate 50 MG tablet 50 mg PO BID Qty: 60 0RF gabapentin 600 MG tablet 600 mg PO QHS doxazosin 1 MG tablet 1 mg PO QHS acetaminophen 325 MG capsule 650 mg PO Q4H PRN PRN (Reason: PAIN/FEVER) sulfamethoxazole-trimethoprim 1 TABLET tablet 1 tab PO BID Qty: 14 0RF Primary Care Provider: Talon Bolaños Referrals: Abdirizak Mosquera MD [Med Staff - Active Staff] - 1 Day Teo Velasquez MD [Med Staff - Active Staff] - 1-2 Weeks Talon Bolaños MD [Primary Care Provider] - Jossy Richardson PA [Med Staff - Adv Practice Prof] - 1 Day Activity Restrictions/Additional Instructions: Take medication as prescribed It is in your best interest to quit smoking immediately Print Language: Tajik Disposition Disposition: Home, Self Care
[2024-04-06 16:32] VITALS: BP 176/88; PULSE 82; RESP 18; TEMP 36.8; O2SAT 98
== END 2024-04-06 16:45 | disposition home or self-care (01) ==
LOC: ED 16:38
PROVIDERS: Emergency Provider Emergency Medicine; PCP Internal Medicine; Visit Provider Emergency Medicine
DX: M25.561 Pain in right knee (principal); M17.11 Unilateral primary osteoarthritis, right knee; I10 Essential (primary) hypertension; I73.9 Peripheral vascular disease, unspecified; E78.00 Pure hypercholesterolemia, unspecified; K21.9 Gastro-esophageal reflux disease without esophagitis; Z85.46 Personal history of malignant neoplasm of prostate; Z79.899 Other long term (current) drug therapy; F17.210 Nicotine dependence, cigarettes, uncomplicated
CPT/HCPCS: 73140; 73562; 99282

== ENCOUNTER → 2024-04-29 | Outpatient (CLI) | payer MEDICARE, SELFPAY ==
--- NOTE | 2024-04-29 09:05 | RDU_ITS ---
Reason For Study: HTN Right Renal Artery Left Renal Artery Right renal artery mid 107.9/18.0 Left renal artery distal 79.3/17.7 PSV/EDV. PSV/EDV. Right renal artery proximal Left renal artery proximal PSV/EDV 94.8/20.2 PSV/EDV. 63.2/17.7 . Right renal artery ostium 81.6/15.8 Left renal artery ostium 56.5/13.7 RSV/EDV. PSV/EDV. Right renal artery distal 99.1/18.0 Left renal artery mid 103.6/22.4 PSV/EDV. PSV/EDV . Right RAR 1.61. Left RAR 1.71. Right Renal Parenchyma Left Renal Parenchyma Upper Pole Medula 19.0/5.3 PSV/EDV. Left upper pole medulla 26.7/9.3 Right upper pole medulla EDR 0.30 . PSV/EDV . Right upper pole medulla R.I. 0.72 . Left upper pole medulla EDR 0.30 . Upper Janes Cortx 15.2/4.3 PSV/EDV. Left upper pole medulla R.I. 0.65 . Right upper pole cortex EDR 0.30 . UP Cortex 23.9/10.2 PSV/EDV. Right upper pole cortex R.I. 0.71 . Left upper pole cortex EDR 0.40 . Right lower Pole medulla 22.3/6.2 Left upper pole cortex R.I. 0.57 . PSV/EDV . Left lower Pole medulla 24.8/7.9 Right lower pole medulla EDR 0.30 . PSV/EDV . Right lower pole medulla R.I. 0.72 . Left lower pole medulla EDR 0.32 . Lower Pole Cortex 20.9/6.2 PSV/EDV. Left lower pole medulla R.I. 0.67 . Right lower pole cortex EDR 0.30 . Lower Pole Cortx 23.9/8.4 PSV/EDV. Right lower pole cortex R.I. 0.70 . Left lower pole cortex EDR 0.65 . Right Renal Hilar Left lower pole cortex R.I. 0.40 . Right Hilar avg 72.7/17.4 PSV/EDV. Left Renal Hilar Right hilar acceleration time 50 LT Hilar avg 108.1/20.5 PSV/EDV . m/sec. Left hilar acceleration time 30 Right Renal Dimensions m/sec. Right kidney size 10.07 cm . Left Renal Dimensions Right cortical dimension 1.22 cm . Left kidney size 10.90 cm . Anechoic nonvascularized area Left cortical dimension 1.28 cm . measuring approximately 1.15cm x 1.30cm noted within Rt Kidney. Aorta Proximal abdominal aorta 2.26 x 2.29 cm . Proximal abdominal aorta peak systolic velocity is 60.6 cm/sec . Distal abdominal aorta 1.71 x 1.89 cm . Distal abdominal aorta peak systolic velocity is 67.1 cm/sec . Procedures Renal artery duplex with B-Mode, Color ad Pulsed Wave Doppler. Test performed in department. Technically Difficult - patient not NPO. VL/Renal Artery Duplex Ultrasound Interpretation Summary Right renal artery patent with normal velocities and no evidence of stenosis. Left renal artery patent with normal velocities and no evidence of stenosis. Right renal vein patent. Left renal vein patent. Right kidney normal in size. Left kidney normal in size. Ordering Physician: Jossy Richardson Referring Physician: Yoandy De Paz Performed By: Dash Quinonez RVT
--- NOTE | 2024-04-29 09:05 | ART_ITS ---
Reason For Study: HX LT SFA Endart Procedure A bilateral lower extremity continuous wave Doppler with analog waveform analysis,segmental pressures,and ankle brachial indexes without exercise. Left Segmental Pressures Left brachial= 184mmHg. Left thigh = 136mmHg. Left calf = 154mmHg. Left posterior tibial artery = 105mmHg. Left dorsalis pedis artery = 106mmHg. Left digit = 61 mmHg. The left posterior tibial artery waveforms are biphasic. The left dorsalis pedis waveforms are monophasic. Right Segmental Pressures Right brachial= 185mmHg. Right thigh = 169mmHg. Right calf = 132mmHg. Right posterior tibial artery = 141mmHg. Right dorsalis pedis artery = 145mmHg. Right digit = 100 mmHg. The right posterior tibial artery waveforms are biphasic. The right dorsalis pedis waveforms are biphasic. Indices The right ankle brachial index by the posterior tibial artery is 0.76. The right ankle brachial index by the dorsalis pedis is 0.78. The right digital-brachial index is 0.54. The left ankle brachial index by the posterior tibial artery is 0.57. The left ankle brachial index by the dorsalis pedis is 0.57. The left digital-brachial index is 0.33. VL/Lower Ext Art Exam w/o Exercis Interpretation Summary Right SAMANTHA 0.78, moderate arterial insufficiency. Doppler/PVR waveforms and segm ental pressures reveal [id number] femoral, distal SFA/popliteal disease. Left SAMANTHA 0.57, moderate arterial insufficiency. Doppler/PVR waveforms and segme ntal pressures reveal [id number] femoral, infrapopliteal disease. Ordering Physician: Jossy Richardson Referring Physician: Yoandy Goff Performed By: Dash Quinonez, RVT
== END | disposition home or self-care (01) ==
PROVIDERS: PCP Internal Medicine; Visit Provider Physician Assistant
DX: I70.1 Atherosclerosis of renal artery (principal); I73.9 Peripheral vascular disease, unspecified
CPT/HCPCS: 93923; 93975

== ENCOUNTER → 2024-05-19 | Outpatient (CLI) | payer MEDICARE, SELFPAY ==
--- NOTE | 2024-05-19 08:14 | CDU_ITS ---
Reason For Study: Carotid Bruit Rt. Velocities/BP Lt. Velocities/BP Prox CCA 49.7/11.9 cm/sec. Prox CCA 31.1/0.0 cm/sec. Mid CCA 44.0/11.0 cm/sec. Mid CCA 25.4/0.0 cm/sec. Dist CCA 45.0/10.0 cm/sec. Dist CCA 22.6/0.0 cm/sec. Prox ICA 118.0/26.7 cm/sec. Prox ICA 9.4/0.0 cm/sec. Mid ICA 61.3/12.5 cm/sec. Mid ICA 0.0/0.0 cm/sec. Dist ICA 74.7/17.0 cm/sec. No flow visualized at mid and dist ICA. Rt. ICA/CCA = 2.7. Prox ECA 60.1/5.3 cm/sec. Prox ECA 59.1/0.0 cm/sec. Lt. Vert. 80.9/13.8 cm/sec. Rt. Vert. 53.5/16.6 cm/sec. Right Extracranial There is heterogeneous, irregular atherosclerotic plaque noted in the right common carotid artery. There is heterogeneous, irregular atherosclerotic plaque noted in the right internal carotid artery. The atherosclerotic plaque causes acoustic shadowing. There is heterogeneous, irregular atherosclerotic plaque noted in the right external carotid artery. Antegrade flow is noted in the right vertebral artery. Left Extracranial There is heterogeneous, irregular atherosclerotic plaque noted in the left common carotid artery. There is heterogeneous, irregular atherosclerotic plaque noted in the left internal carotid artery. The left internal carotid artery is occluded. There is heterogeneous, irregular atherosclerotic plaque noted in the left external carotid artery. Antegrade flow is noted in the left vertebral artery. Procedure Carotid Duplex 59631. This is a Carotid Duplex examination using B-mode, color flow and specral Doppler. The exam was diagnostic. Exam performed in department. VL/Carotid Duplex Ultrasound Interpretation Summary Mild (<50%) stenosis right extracranial internal carotid. 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 Patent and antegrade vertebrals bilaterally. Ordering Physician: Jossy Richardson Referring Physician: Talon Bolaños M.D. Performed By: Dash Quinonez RVT
--- NOTE | 2024-05-19 08:14 | CT_ITS ---
STUDY: CTA OF THE ABDOMINAL AORTA AND BILATERAL LOWER EXTREMITIES REASON FOR EXAM: Male, 84 years old. s/p L PT angioplasty/stent, prior profunda-PT bypass RADIATION DOSAGE (If Supplied By Facility): CTDIvol = ( 8.59 ) mGy, DLP = ( 968.28 ) mGycm TECHNIQUE: Axial CT angiography multi-detector data acquisition was obtained from the lung bases to the feet following intravenous administration of 100 mL of Isovue-370. Axial images and MIP images were reconstructed from the axial data set. Post-processing of the angiographic images was performed, with multiplanar reformation and 3D reconstruction. Individualized dose optimization techniques were used for this CT. The protocol utilizes one or more of the following dose reduction techniques: automated exposure control, adjustment of mA and/or kV according to patient size, and/or use of iterative reconstruction technique. TECHNICAL QUALITY: Good COMPARISON: None. Descriptors of Narrowing: None (0%) Mild (< 50%) Moderate (50-70%) Severe (70-90%) Subtotal/Total Occlusion (90-100%) Non-Evaluable (technically non-diagnostic FINDINGS: Abdominal aorta: Heavy calcified plaques and tortuous. No aneurysmal dilatation and no dissection. No demonstrated narrowing. Celiac and superior mesenteric arteries: Calcified plaques but no demonstrated narrowing or occlusion. Inferior mesenteric artery: No demonstrated narrowing. Right renal artery(arteries): Greater than 50% stenosis at the origin. Left renal artery(arteries): Greater than 50% stenosis proximally due to calcified plaques. Right common iliac artery: 70% stenosis of the junction of the middle third and distal third of the right common iliac artery. Heavy calcified plaques along the entire right common iliac artery. Right external iliac artery: No demonstrated narrowing. Right internal iliac artery: High-grade stenosis at the origin due to heavily calcified plaques. Left common iliac artery: Heavy calcified plaques but no demonstrated narrowing. Left external iliac artery: Heavy calcified plaques but no demonstrated narrowing. Left internal iliac artery: High-grade stenosis of the origin. Heavy calcified plaques along the left internal iliac artery. RIGHT LOWER EXTREMITY Right common femoral artery: Heavy calcified plaques with greater than 50% stenosis. Right profundus femoris: High-grade stenosis due to heavily calcified plaques. Right superficial femoral: Segmental high-grade stenosis due to extensive with heavy calcified plaques. Right popliteal artery: Greater than 70% stenosis of the mid popliteal artery. Heavy calcified plaques along the popliteal artery. Right tibioperoneal trunk: High-grade stenosis. Right anterior tibial artery: Heavy calcified plaques. Occluded. Right posterior tibial artery: Heavily calcified plaques. Occluded. Right peroneal artery: Heavily calcified plaques approximately and near complete occlusion proximally. This is the main arterial supply to the lower extremity runoff. 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 Greater than 50% stenosis of the distal common femoral artery. Left profundus femoris: Segmental high-grade stenosis due to heavily calcified plaques. Left superficial femoral: Segmental high-grade stenosis approximately due to extensive and heavy calcified plaques. The bulk of the left SFA is occluded without visible contrast opacification. Left popliteal artery: High-grade stenosis due to heavily calcified plaques. Left tibioperoneal trunk: High-grade stenosis due to heavily calcified plaques. Left anterior tibial artery: Extensive and heavily calcified plaques. Occluded. Left posterior tibial artery: Extensive and heavy calcified plaques. Occluded. Left peroneal artery: Greater than 50% stenosis proximally. This is the main arterial supply to the left lower extremity runoff down to the ankle. OPINION: 1. Limited CTA of the bilateral lower extremity runoffs due to extensive and heavy calcified plaques with limited contrast visibility of the bilateral lower extremity runoffs. 2. 70% stenosis at the junction of middle third and distal third of the right common iliac artery. Heavy calcified plaques with greater than 50% stenosis of the right common femoral artery. High-grade stenosis of the right profunda femoris. Segmental high-grade stenosis of the right superficial femoral artery. Greater than 70% stenosis in the midportion of the right popliteal artery. High-grade stenosis of the right tibioperoneal trunk. Occluded right anterior tibial artery and right posterior tibial artery. Heavy calcified plaques with near complete occlusion in the proximal right peroneal artery. The right lower extremity runoff is fed mainly by the right peroneal artery. 3. Heavy calcified plaques but no demonstrated narrowing of the left common iliac artery and left external iliac artery. 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 Greater than 50% stenosis of the left distal common femoral artery. Segmental high-grade stenosis of the left profunda femoris due to heavily calcified plaques. Segmental high-grade stenosis of the left superficial femoral artery due to extensive and heavy calcified plaques. The bulk of the left SFA is occluded without visible contrast opacification. High-grade stenosis of the left popliteal artery due to heavily calcified plaques. High-grade stenosis of the left tibioperoneal trunk due to heavily calcified plaques. Occluded left anterior tibial artery and left posterior tibial artery due to extensive and and heavy calcified plaques. Greater than 50% stenosis of the left proximal peroneal artery. This is the main arterial supply to the left lower extremity runoff down to the ankle. 4. Heavy calcified plaques along the abdominal aorta but no demonstrated narrowing and no abdominal aortic aneurysm. 5. Greater than 50% stenosis of both renal arteries due to calcified plaques. 6. No significant stenosis of the celiac artery, superior mesenteric artery and inferior mesenteric artery 7. 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 8. No suspicious acute abnormality in the abdomen and pelvis. 9. Moderate dextroscoliosis of the lumbar spine. Diffuse degenerative disc space height narrowing throughout the lumbar spine. No lytic or blastic lesions. Electronically Signed: Escobar Ji MD at 9:20 EDT , CT/CTA Abd w/Runoff W/WO Contrast IMPRESSION: undefined
[2024-05-19 08:53] LABS: CREATININE FINGERSTICK 1.6 mg/dL (0.70-1.30)
== END | disposition home or self-care (01) ==
PROVIDERS: PCP Internal Medicine; Referring Provider Physician Assistant; Visit Provider Physician Assistant
DX: Z01.812 Encounter for preprocedural laboratory examination (principal); I77.9 Disorder of arteries and arterioles, unspecified; Z98.62 Peripheral vascular angioplasty status; R09.89 Other specified symptoms and signs involving the circulatory and respiratory systems; I70.1 Atherosclerosis of renal artery
CPT/HCPCS: 75635; 93880; Q9967

== ENCOUNTER → 2024-06-30 | Outpatient (CLI) | payer MEDICARE, SELFPAY ==
[2024-06-30 17:26] LABS: Amphetamine Urine VISTA NEGATIVE (<1000 ng/mL); Barbiturate Urine VISTA NEGATIVE (< 200 ng/mL); Benzodiazepine Urine VISTA NEGATIVE (< 200 ng/mL); Cocaine Urine VISTA NEGATIVE (< 300 ng/mL); Ecstacy Urine VISTA NEGATIVE (< 500 ng/mL); Methadone Urine VISTA NEGATIVE (< 300 ng/mL); PCP Urine VISTA NEGATIVE (< 25 ng/mL); THC Urine VISTA NEGATIVE (< 50 ng/mL); Vista UDS pH Range 5
== END | disposition home or self-care (01) ==
PROVIDERS: PCP Internal Medicine; Referring Provider Anesthesiology; Visit Provider Anesthesiology
DX: M54.16 Radiculopathy, lumbar region (principal); F11.20 Opioid dependence, uncomplicated
CPT/HCPCS: 80307

== ENCOUNTER → 2024-07-16 | Outpatient (CLI) | payer MEDICARE, SELFPAY ==
--- NOTE | 2024-07-16 14:57 | CT_ITS ---
STUDY: CTA HEAD AND NECK WITH CONTRAST REASON FOR EXAM: Male, 84 years old. L ICA occlusion, R ICA stenosis RADIATION DOSAGE (If Supplied By Facility): CTDIvol = ( 33.54 ) mGy, DLP = ( 1482.58 ) mGycm TECHNIQUE: CT angiography was performed with a multi-detector CT scanner. Data acquisition was obtained from the skull base through the vertex following intravenous administration of IV 100mL [id number]-[id number]. MIP images were reconstructed from the axial data set. Post-processing of the angiographic images was performed, with multiplanar reformation and 3D reconstruction. Individualized dose optimization techniques were used for this CT. COMPARISON: No relevant priors. FINDINGS: Normal bilateral petrous carotid arteries. There is calcified plaque formation of the right cavernous carotid artery, with a mild stenosis (less than 50%). Normal left cavernous carotid artery with a normal supraclinoid bifurcation. Normal right A1 segments of the anterior cerebral artery. Normal left A1 segments of the anterior cerebral artery. Normal intact anterior communicating artery (ACOM). Normal bilateral A2 segments of the anterior cerebral arteries. Normal right M1 and M2 segments of the middle cerebral arteries, with a normal M1 bifurcation. Normal left M1 and M2 segments of the middle cerebral arteries, with a normal M1 bifurcation. Normal right posterior communicating artery (PCOM). Normal left posterior communicating artery (PCOM). Normal bilateral vertebral arteries. Normal basilar artery with a normal basilar bifurcation. The visualized bilateral superior cerebellar (SCA) arteries are normal. Normal bilateral P1, P2 and visualized P3 segments of the posterior cerebral arteries. There is no demonstrated aneurysm of the [place] of [place]. Cerebral atrophy. There is evidence of a decreased attenuation in the periventricular distribution suggestive of small and arterial atherosclerosis. AORTIC ARCH: There is atherosclerotic calcific plaque formation of the aortic arch and great vessels arising from the aortic arch, without a hemodynamically significant stenosis. There is a normal origin of the brachiocephalic, left common carotid, and left subclavian arteries. Atherosclerotic calcification at the origin of the left subclavian artery and right brachiocephalic artery. RIGHT CAROTID ARTERIES: Normal right common carotid artery (CCA). There is extensive atherosclerotic plaque formation with severe narrowing of the right carotid bulb with a hemodynamically significant stenosis. There is extensive atherosclerotic plaque formation of the origin of the right internal carotid artery with an estimated stenosis of greater than 70%. Normal visualized cervical portion of the right internal carotid artery. Normal origin of the right external carotid artery (ECA). LEFT CAROTID ARTERIES: Normal left common carotid artery (CCA). There is moderate atherosclerotic plaque formation with moderate narrowing of the carotid bulb. There is complete occlusion of the origin of the left internal carotid artery without demonstrated arterial flow. Normal visualized cervical portion of the left internal carotid artery. Normal origin of the left external carotid artery (ECA). VERTEBRAL ARTERIES: Normal bilateral vertebral arteries. 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 A moderate degree of calcific plaque at the level of the left carotid bulb. High-grade stenosis at the origin of the right internal carotid artery with large amount of calcific plaques at the carotid bulb. Electronically Signed: Artur Ayala MD at 13:29 EDT ,
[2024-07-16 15:22] LABS: CREATININE FINGERSTICK < 1.0 mg/dL (0.70-1.30); EGFR FINGERSTICK > 60.0000 mL/min (>60)
== END | disposition home or self-care (01) ==
PROVIDERS: PCP Internal Medicine; Referring Provider Physician Assistant; Visit Provider Physician Assistant
DX: I65.22 Occlusion and stenosis of left carotid artery (principal)
CPT/HCPCS: 70496; 70498; Q9967

== ENCOUNTER 2024-07-25 16:38 | Emergency (ER) | payer MEDICARE, SELFPAY ==
[2024-07-25 16:39] VITALS: BP 136/50; PULSE 64; RESP 18; TEMP 36.9; O2SAT 97
--- NOTE | 2024-07-25 17:44 | ED.VIS.GI ---
HPI HPI - GI History of Present Illness Chief Complaint: Diarrhea Informant: patient and family Narrative Narrative: Presents with daughter for diarrhea for the last 1 to 2 weeks. At least 7-10 episodes a day. Week ago had black stools that cleared up, he took Pepto-Bismol at that time. No bloody stools. No anticoagulants. No recent antibiotics. Cannot recall eating anything different prior to symptoms occurring. No nausea or vomiting. He states able to eat yesterday today 20 minutes later will have his diarrhea. However last diarrhea was nearly 3 hours ago. Denies urinary symptoms. Denies fevers or chills. Denies cough. States feeling weaker because of diarrhea. No chest or abdominal pain. Prior similar symptoms: No PFSH PFSH Medical History Brain hematoma (~2019) History of prostate cancer GERD (gastroesophageal reflux disease) IBS (irritable bowel syndrome) Hypertension Arthritis Home Medications ?Medication ?Instructions ?Recorded ?Last Taken ?Type amlodipine 10 mg tablet 10 mg PO DAILY HTN 05/13/17 01/20/18 History 10 MG atorvastatin 10 mg tablet 10 mg PO QHS CHOLESTEROL 05/13/17 05/13/17 History lisinopril 20 mg tablet 40 mg PO QHS HTN 05/13/17 01/20/18 History 20 MG omeprazole 20 mg capsule,delayed 20 mg PO DAILY acid reflux 05/13/17 01/19/18 History release 20 MG metoprolol tartrate 50 mg tablet 50 mg PO BID #60 tabs 05/14/17 01/19/18 Rx 50 MG acetaminophen 325 mg capsule 650 mg PO Q4H PRN PRN PAIN/FEVER 11/03/20 Unknown History gabapentin 600 mg tablet 600 mg PO QHS 11/03/20 Unknown History aspirin 81 mg tablet,delayed 81 mg PO QDAY 06/26/24 Unknown History release Allergy/AdvReac Type Severity Reaction Status Date / Time No Known Allergies Allergy Verified 07/25/24 16:39 Family History Other Arthritis Cancer Hypertension Myocardial infarction Surgical History History of hernia repair Hx of rotator cuff surgery (~2018) Social History Smoking Status: Current every day smoker tobacco type: cigarettes alcohol intake: never substance use type: does not use what type of physical activity do you participate in: none ROS ROS ED Constitutional Constitutional ED: Denies chills, fever(s) or sweats Eyes Eyes: Denies change in vision ENT ENT ED: Denies dysphagia or sore throat Cardiovascular Cardiovascular: Denies chest pain, leg edema, palpitations or racing heartbeat Respiratory/Chest Respiratory/Chest: Denies cough, dyspnea or dyspnea on exertion Gastrointestinal Gastrointestinal: Reports diarrhea; Denies abdominal pain, nausea or vomiting Genitourinary Genitourinary ED: Denies dysuria, hematuria or urinary frequency Musculoskeletal Musculoskeletal: Denies back pain, extremity pain or neck pain Integumentary Denies rash or wounds Neurologic Neurologic: Denies headache(s), paresthesias or weakness EXAM Physical Exam Const Vital Signs: 07/25/24 16:39 07/25/24 19:14 Temperature 98.4 F Temperature Source Oral Pulse Rate 64 63 Respiratory Rate 18 18 Blood Pressure 136/50 H 169/70 H Blood Pressure Mean 78 103 Pulse Ox 97 Oxygen Delivery Method Room Air Positive well nourished and well developed General Appearance ED: well developed and NAD HEENT Reports moist mucous membranes normocephalic and atraumatic Eyes EOMs intact bilaterally and conjunctivae normal General Eye ED: Yes normal appearance of both eyes Neck no lymphadenopathy and supple General: Negative for tenderness Chest Wall Chest: Negative for tenderness Resp normal respiratory effort and normal air movement Effort and Inspection: symmetric chest movement; Negative for respiratory distress Cardio regular rate, regular rhythm and no murmurs Peripheral Pulses: pulses 2+ throughout GI normal to inspection, nondistended, normoactive bowel sounds and non-tender GI Narrative: Negative Hernandez's or McBurney's tenderness. Palpation: Negative for guarding or rebound tenderness present Back/Spine no CVA tenderness and no thoracic nor lumbar tenderness Extremity normal to inspection General Extremety ED: Negative for edema or tenderness General Extremity: Negative for edema Neuro oriented x3, CN's II-XII intact bilaterally and no sensory deficits noted Sensorium / Orientation: awake and alert Skin no rashes or lesions noted and no wounds MDM MDM MDM Narrative Medical decision making narrative: Interventions / MDM: Differential diagnosis: Diarrhea, electrolyte abnormalities Diagnosis considered but do not suspect: N/A My EKG interpretation: N/A Imaging independently reviewed and interpreted by myself: N/A External documents reviewed: N/A Test considered but not ordered:N/A ED course: Patient clinically well-hydrated vital signs stable. Diarrhea for over a week. He had black stools however was on Pepto-Bismol. That is cleared up. Will check labs, will order for stool studies. Will allow p.o. fluids due to severe shortage of IV fluids nationally at this time. 1999: Patient was monitored tolerating p.o. fluids. Labs with potassium of 2.9. Creatinine 1.24 stable from previous. Oral potassium was given. Magnesium is normal. He was observed he was given oral fluids and something to eat, he is unable provide stool sample. This is been over 4 hours. I discussed with him we will send him stool collection kit for home. He can follow-up with his PCP for checking of stools if needed. Continue oral fluids for hydration. Patient able to ambulate in department with no difficulties. All questions were answered. Re-evaluation: stable Disposition discussed with patient/family/significant other: Patient and daughter Case discussed with consulting clinician: N/A This note was generated with [employer] dictation software. It may contain incorrect words, spelling, and punctuation that were not noted in checking the note before signing. Lab Data Attestation: I reviewed the patient's lab results. Labs: Laboratory Results - last 24 hr 07/25/24 17:14 WBC 7.0 RBC 4.13 L Hgb 13.6 Hct 39.4 L MCV 95.4 H MCH 32.9 H MCHC 34.5 RDW Std Deviation 46.3 H RDW Coeff of Sean 13.1 Plt Count 187 MPV 10.9 Immature Gran % (Auto) 0.300 Neut % (Auto) 74.0 H Lymph % (Auto) 16.7 L Craven % (Auto) 7.4 Eos % (Auto) 1.3 Baso % (Auto) 0.3 Absolute Neuts (auto) 5.2 Absolute Lymphs (auto) 1.17 Nucleated RBC % 0 Sodium 137 Potassium 2.9 L Chloride 108 H Carbon Dioxide 21.0 Anion Gap 8 BUN 26 H Creatinine 1.24 Est GFR (MDRD) Af Amer 71 Est GFR (MDRD) Non-Af 59 L BUN/Creatinine Ratio 21.0 H Glucose 110 H Calcium 9.2 Magnesium 1.8 Discharge Plan Triage Chief Complaint: Diarrhea ED Provider: Toñito Vo Dx/Rx/DC Orders Clinical Impression: Diarrhea, Hypokalemia Instructions: ED Diarrhea, Unknown Cause, ED Hypokalemia Prescriptions: No Action atorvastatin 10 MG tablet 10 mg PO QHS lisinopril 20 MG tablet 40 mg PO QHS Patient Comments: amlodipine 10 MG tablet 10 mg PO DAILY Patient Comments: omeprazole 20 MG capsule,delayed release(DR/EC) 20 mg PO DAILY Patient Comments: metoprolol tartrate 50 MG tablet 50 mg PO BID Qty: 60 0RF gabapentin 600 MG tablet 600 mg PO QHS acetaminophen 325 MG capsule 650 mg PO Q4H PRN PRN (Reason: PAIN/FEVER) Primary Care Provider: Talon Bolaños Referrals: Talon Bolaños MD [Primary Care Provider] - 3-5 Days Activity Restrictions/Additional Instructions: White count normal at 7. Potassium 2.9. You given oral potassium in the ED. Magnesium normal. Creatinine 1.24. Continue oral fluids for hydration. If you are able to provide a stool sample, call your doctor for stool orders as you are unable to provide 1 here. Follow-up your doctor. If your symptoms are worsening, he may return to the ED for reevaluation. Print Language: Sinhala Disposition Disposition: Home, Self Care Discharge Date/Time: 07/25/24 20:53
[2024-07-25 17:56] LABS: Absolute Lymphocyte Count 1.17 X10^3/uL (0.83-4.51); Absolute Neutrophil Count 5.2 X10^3/uL (2.0-7.7); Basophil# 0.02 X10^3/uL; Basophil% 0.3 % (0-1); Eosinophil# 0.09 X10^3/uL; Eosinophils% 1.3 % (0-5); Hematocrit 39.4 % (40-54); Hemoglobin 13.6 g/dL (13.0-16.5); Lymphocyte # 1.17 X10^3/ul (0.83-4.51); Lymphocyte % 16.7 % (19-41); Mean Corp Hgb Conc 34.5 g/dL (32-36); Mean Corpuscular Hgb 32.9 pg (27.0-32.0); Mean Corpuscular Volume 95.4 fL (80-94); Mean Platelet Vol. 10.9 fl (6.2-12.0); Monocyte# 0.52 X10^3/uL; Monocyte% 7.4 % (0-10); NRBC Flagged by Analyzer 0 % (0-5); Neutrophil # 5.18 X10^3/uL (2.7-7.7); Platelet Count 187 K/mm3 (150-450); RBC Distribution Width CV 13.1 % (11.6-14.6); RBC Distribution Width SD 46.3 fl (35.1-43.9); Red Blood Count 4.13 M/mm3 (4.6-6.2)
[2024-07-25 18:12] LABS: Anion Gap 8 (5-15); BUN 26 mg/dL (7-18); Calcium,Total 9.2 mg/dL (8.5-10.1); Chloride 108 mmol/L (98-107); Creatinine, Serum 1.24 mg/dL (0.70-1.30); EST Glomerular Filtration Rate 59 mL/min (>60); Est Glom Filt Rate - Afr Amer 71 mL/min (>60); Glucose 110 mg/dL (74-106); Magnesium 1.8 mg/dL (1.6-2.6); Potassium 2.9 mmol/L (3.5-5.1); Sodium Level 137 mmol/L (136-145)
[2024-07-25] MEDS: Potassium Chloride Oral Tablet 20 MEQ 40 MEQ PO (19:08)
[2024-07-25 19:14] VITALS: BP 169/70; PULSE 63; RESP 18
== END 2024-07-25 20:53 | disposition home or self-care (01) ==
PROVIDERS: Emergency Provider Emergency Medicine; PCP Internal Medicine; Visit Provider Emergency Medicine
DX: R19.7 Diarrhea, unspecified (principal); E87.6 Hypokalemia; I10 Essential (primary) hypertension; F17.210 Nicotine dependence, cigarettes, uncomplicated; Z79.82 Long term (current) use of aspirin; Z79.899 Other long term (current) drug therapy
CPT/HCPCS: 80048; 83735; 85025; 87493; 87506; 99282; A4216

== ENCOUNTER → 2024-08-10 | Outpatient (CLI) | payer MEDICARE, SELFPAY ==
--- NOTE | 2024-08-10 06:41 | MRI_ITS ---
STUDY: MRI LUMBAR SPINE WITHOUT CONTRAST REASON FOR EXAM: Male, 84 years old. Back pain with numbness in legs and feet. Lumbar spondylosis. TECHNIQUE: Standardized fat and water weighted pulse sequences were obtained in the sagittal and axial planes. COMPARISON: CT abdomen and pelvis without contrast 11/03/2020. FINDINGS: T10-T11, T11-T12 and T12-L1: (Sagittal only). Normal endplates. Normal disc height, hydration and morphology. No ventral extradural defects. Normal central canal and bilateral intervertebral neural foramina. Normal lumbar lordosis. Moderate dextroscoliosis of the lumbar spine. Normal conus medullaris that terminates at the upper L1 vertebral body level. L1-2: Mixed Modic type I and type II changes of the vertebral marrow underneath the left side of the vertebral endplates. Pronounced left-sided disc space height narrowing. Mild ventral extradural defect due to mild degenerative retrolisthesis of L1 on L2 with small posterior bulging annulus. Mild asymmetric degenerative facet arthropathy. Normal central canal and bilateral lateral recesses. Mild stenosis of the left intervertebral neuroforamen. Normal right intervertebral neuroforamen. L2-3: Moderate type I degenerative vertebral marrow edema more than type II changes of the vertebral marrow underneath the left side of the vertebral endplates. Pronounced left-sided disc space height narrowing. Mild asymmetric degenerative facet arthropathy. Normal central canal and bilateral lateral recesses. Moderately pronounced stenosis of the left intervertebral neuroforamen. Normal right intervertebral neuroforamen.. Small right renal parenchymal cyst is visible at this level. L3-4: Normal endplates. Pronounced left-sided disc space height narrowing. Mild bilateral degenerative facet arthropathy. Normal central canal and bilateral lateral recesses. Moderately pronounced stenosis of the left intervertebral neuroforamen. Normal right intervertebral neuroforamen. L4-5: Modic type II degenerative vertebral marrow fat infiltration underneath the right half of the vertebral endplates. Pronounced right-sided disc space height narrowing. Moderate right degenerative facet arthropathy. Mild left degenerative facet arthropathy. Normal central canal and bilateral lateral recesses. Moderate stenosis of the right intervertebral neuroforamen. Normal left intervertebral neuroforamen. L5-S1: Normal endplates. Mild right-sided disc space height narrowing. Moderate right degenerative facet arthropathy. Mild left degenerative facet arthropathy. Normal central canal and bilateral lateral recesses. Pronounced stenosis of the right intervertebral neuroforamen with impingement of the right L5 nerve. Normal left intervertebral neuroforamen. Normal visualized sacral ala. Normal visualized paraspinous soft tissue structures. MRI/Spine Lumbar (Routine) IMPRESSION: 1. Pronounced stenosis of the right L5-S1 intervertebral neuroforamen with impingement of the right L5 nerve but unchanged when compared to CT abdomen and pelvis of 11/03/2020. 2. 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 This level is unchanged. 3. Moderately pronounced stenosis of the left L3-L4 intervertebral neuroforamen is unchanged. 4. Moderate stenosis of the right L4-L5 intervertebral neuroforamen and pronounced right-sided disc space height narrowing. 5. Mixed Modic type I and type II changes of the vertebral marrow underneath the left side of the vertebral endplates, pronounced left-sided disc space height narrowing, mild degenerative retrolisthesis of L1 on L2 with small posterior bulging annulus and mild stenosis of the left intervertebral neuroforamen. 6. No MRI evidence of lumbar extruded disc fragment. Electronically Signed: Escobar Ji MD at 13:25 EDT ,
--- OUTSIDE RECORDS SUMMARY | 2024-08-10 06:47 | XMS RPT_ITS | CCD ---
Author Organization [facility] Care Team Providers Care Print Traffic Manager Name Role Phone Miky JACOBO, Talon Desir Primary Care Provider [phone] Jean Carlos Lorenz DO Unavailable TALON BOLAÑOS Primary Care Unavailable Talon Bolaños MD Primary Care Provider [phone] Jean Carlos Lorenz DO Unavailable Unavailab le TALON BOLAÑOS Attending Unavailable TALON BOLAÑOS Primary Care Unavailable MIKY, TALON Desir Primary Care Unavailable TALON BOLAÑOS Primary Care Unavailable PRECIOUS TEIXEIRA Attending Unavailable MIKY, TALON Desir Primary Care Unavailable MIKY, TALON Desir Primary Care Unavailable TALON BOLAÑOS Referring Unavailable PRECIOUS TEIXEIRA Attending Unavailable TALON BOLAÑOS Primary Care Unavailable PRECIOUS TEIXEIRA Attending Unavailable MIKY, TALON Desir Primary Care Unavailable MIKY, TALON Desir Primary Care Unavailable TALON BOLAÑOS Attending Unavailable LAVERNE JUAREZ Referring Unavailable MIKY, TALON Desir Primary Care Unavailable LAVERNE JUAREZ Attending Unavailable PRECIOUS TEIXEIRA Referring Unavailable TALON BOLAÑOS Primary Care Unavailable PRECIOUS TEIXEIRA Attending Unavailable TALON BOLAÑOS Primary Care Unavailable Medications Current Medications Medication Drug Class(es) Dates Sig (Normalized) Sig (Original) acetaminophen 325 mg oral tablet (20 sources) Start: 09-20-2020 take 2 tablets by mouth every four hours as needed acetaminophen (TYLENOL) 325 mg tablet Take 2 tablets by mouth every 4 hours as needed. 09/20/2020 Active Comment on above: Take 2 tablets by mo [facility] every 4 hours as needed. acetaminophen 325 mg / HYDROcodone bitartrate 5 mg oral tablet (1 source) Opioid Agonist Start: 10-19-2022 End: 10-22-2022 take 1 tablet by mouth every eight hours as needed for pain HYDROcodone-acetami nophen (NORCO) 5-325 mg per tablet Indications: Bilateral lower extremity pain Take 1 tablet by mouth every 8 hours as needed for pain for up to 3 days. 9 tablet 0 10/19/2022 10/22/2022 Active Comment on above: Take 1 tablet by fermín th every 8 hours as needed for pain for up to 3 days. [id number] actuat albuterol 0.09 mg/actuat metered dose inhaler (20 sources) beta2-Adrenergic Agonist Start: 07-19-2023 End: 01-01-2024 take 2 puff(s) by inhalation every four hours as needed for wheezing albuterol HFA (VENTOLIN HFA) 90 mcg/actuation inhaler Indications: Chronic obstructive pulmonary disease, unspecified COPD type (HCC) Inhale 2 Puffs as instructed every 4 hours as needed for wheezing/shortness of breath. 1 Each 2 01/01/2024 Active Start: 10-11-2021 End: 07-04-2022 take 2-4 puff(s) by inhalation every four hours as needed for wheezing albuterol HFA (PROVENTIL HFA, VENTOLIN HFA) 90 mcg/actuation inhaler Inhale 2-4 Puffs as instructed every 4 hours as needed for wheezing/shortness of breath. 8 g 10/11/2021 07/04/2022 Discontinued (Discontinued by Patient) Comment on above: Inhale 2-4 Puffs as instructed every 4 hours as needed for wheezing/shortness of breath. Inhale 2 Puffs as in structed every 4 hours as needed for wheezing/shortness of breath. amLODIPine 10 mg oral tablet (20 sources) Dihydropyridine Calcium Channel Meghna Start: 02-12-20 End: 07-16-20 take 1 tablet by mouth once daily amLODIPine (NORVASC) 10 mg tablet Indications: Essential hypertension Take 1 tablet by mouth once daily. 90 tablet 1 07/16/2024 Active Start: 01-22-2024 End: 02-12-2024 take 1 tablet by mouth once daily amLODIPine (NORVASC) 5 mg tablet Indications: Essential hypertension Take 1 tablet by mouth once daily. 90 tablet 3 01/22/2024 02/12/2024 Discontinued (Dosage adjustment) Start: 05-17-2023 End: 01-01-2024 take 1 tablet by mouth once daily amLODIPine (NORVASC) 5 mg tablet Indications: Essential hypertension Take 1 tablet by mouth once daily. 05/17/2023 01/01/2024 Discontinued (Non-Compliance) Start: 11-28-2020 End: 04-12-2023 take 1 tablet by mouth once daily amLODIPine (NORVASC) 10 mg tablet Indications: Essential hypertension Take 1 tablet by mouth once daily. 90 tablet 3 11/28/2020 02/05/2022 Discontinued Comment on above: Take 1 tablet by fermín once daily. cefdinir 300 mg oral capsule (2 sources) Cephalosporin Antibacterial Start: End: take 1 capsule by mouth twice daily cefdinir (OMNICEF) 300 mg capsule Take 1 capsule by mouth twice daily for 16 doses. 16 capsule 0 03/20/2022 03/28/2022 Active Comment on above: Take 1 capsule by mo [facility] twice daily for 16 doses. chlorthalidone 25 mg oral tablet (20 sources) Thiazide-like Diuretic Start: End: take 1 tablet by mouth once daily chlorthalidone (HYGROTON) 25 mg tablet Indications: Essential hypertension Take 1 tablet by mouth once daily. 90 tablet 3 01/01/2024 Active Comment on above: Take 1 tablet by fermín once daily. cholestyramine resin 4000 mg powder for oral suspension (1 source) Bile Acid Sequestrant Start: take 2 g by mouth twice daily cholestyramine-sucros e (QUESTRAN) 4 gram powder Indications: Diarrhea, unspecified type Take 2 g by mouth two times a day. 348.6 g 07/30/2024 Active doxazosin 8 mg oral tablet (20 sources) alpha-Adrenergic Meghna Start: 023 End: take 1 tablet by mouth once daily at bedtime doxazosin (CARDURA) 4 mg tablet Indications: Essential hypertension Take 1 tablet by mouth daily at bedtime. Added to 8 mg tablet. 90 tablet 3 01/01/2024 Active Start: 07-17-2021 End: 01-01-2024 take 1 tablet by mouth once daily at bedtime doxazosin (CARDURA) 8 mg tablet Indications: Essential hypertension Take 1 tablet by mouth daily at bedtime. 90 tablet 3 01/01/2024 Active Start: 11-07-2020 End: 05-29-2021 take 1 tablet by mouth once daily doxazosin (CARDURA) 2 mg tablet Indications: Benign prostatic hyperplasia with urinary obstruction , Essential hypertension Take 1 tablet by mouth once daily. 90 tablet 1 11/07/2020 05/29/2021 Discontinued (Dosage adjustment) Comment on above: Take 1 tablet by fermín th daily at bedtime. Take 1 tablet by fermín th daily at bedtime. Added to 8 mg tablet. gabapentin 100 mg oral capsule (20 sources) Anti-epileptic Agent Start: 02-12-2024 End: 04-12-2024 take 1 capsule by mouth once daily in the morning gabapentin (NEURONTIN) 100 mg capsule Take 1 capsule by mouth every morning for 60 days. 30 capsule 1 02/12/2024 Active Start: 03-15-2023 End: 08-10-2024 take 1 capsule by mouth once daily at bedtime gabapentin (NEURONTIN) 300 mg capsule Indications: DDD (degenerative disc disease), lumbar Take 1 capsule by mouth daily at bedtime for 180 days. 90 capsule 1 02/12/2024 08/10/2024 Active Start: 11-07-2020 End: 03-14-2023 take 2 capsules by mouth once daily at bedtime gabapentin (NEURONTIN) 300 mg capsule Indications: DDD (degenerative disc disease), lumbar Take 2 capsules by mouth daily at bedtime for 180 days. 180 capsule 1 12/20/2021 06/14/2022 Discontinued Comment on above: Take 2 capsules by m outh daily at bedtime for 180 days. Take 1 capsule by mo uth daily at bedtime for 180 days. lisinopril 40 mg oral tablet (20 sources) Angiotensin Converting Enzyme Inhibitor Start: End: take 1 tablet by mouth once daily lisinopril (ZESTRIL) 40 mg tablet Indications: Essential hypertension Take 1 tablet by mouth once daily. 90 tablet 3 01/01/2024 Active Start: 11-28-2020 End: 05-14-2023 take 1 tablet by mouth once daily lisinopril (ZESTRIL, PRINIVIL) 40 mg tablet Indications: Essential hypertension Take 1 tablet by mouth once daily. 90 tablet 3 11/28/2020 01/11/2022 Discontinued Comment on above: Take 1 tablet by fermín once daily. loperamide hydrochloride 2 mg oral capsule (2 sources) Opioid Agonist Start: End: 4 take 1 capsule by mouth every six hours as needed loperamide (IMODIUM) 2 mg cap(s) Take 1 capsule by mouth four times a day as needed for up to 7 days. 20 capsule 07/27/2024 08/03/2024 Active metoprolol tartrate 50 mg oral tablet (20 sources) beta-Adrenergic Meghna Start: 3 End: 4 take 1 tablet by mouth twice daily metoprolol tartrate, short acting, (LOPRESSOR) 50 mg tablet Indications: Essential hypertension Take 1 tablet by mouth two times a day. 180 tablet 3 01/01/2024 Active Start: 03-20-2022 End: 12-14-2022 take 0.5 tablet by mouth twice daily metoprolol tartrate, short acting, (LOPRESSOR) 50 mg tablet Indications: Essential hypertension Take 0.5 tablets by mouth twice daily. 180 tablet 3 03/20/2022 12/14/2022 Discontinued Start: 11-28-2020 End: 03-20-2022 take 1 tablet by mouth twice daily metoprolol tartrate, short acting, (LOPRESSOR) 50 mg tablet Indications: Essential hypertension Take 1 tablet by mouth twice daily. 180 tablet 3 11/28/2020 12/19/2021 Discontinued Comment on above: Take 1 tablet by fermín th twice daily. Take 0.5 tablets by mouth twice daily. Take 1 tablet by fermín th two times a day. metroNIDAZOLE 500 mg oral tablet (2 sources) Nitroimidazole Antimicrobial Start: 03-20-20 End: 03-28-20 take 1 tablet by mouth every eight hours metroNIDAZOLE (FLAGYL) 500 mg tablet Take 1 tablet by mouth every 8 hours for 24 doses. 24 tablet 0 03/20/2022 03/28/2022 Active Comment on above: Take 1 tablet by fermín every 8 hours for 24 doses. mometasone furoate 1 mg/ml topical cream (15 sources) Corticosteroid Start: 11-01-19 End: 01-31-20 mometasone (ELOCON) 0.1 % cream Indications: Psoriasis Apply to affected area once daily. As directed. 45 g 1 11/01/2022 01/30/2023 Active Start: 02-20-2021 End: 05-17-2022 mometasone (ELOCON) 0.1 % cr eam Indications: Psoriasis Apply to affected area once daily. 45 g 1 02/20/2021 05/17/2022 Discontinued Comment on above: Apply to affected ar ea once daily. Apply to affected ar ea once daily. As directed. omeprazole 20 mg delayed release oral capsule (20 sources) Proton Pump Inhibitor Start: 2020 End: 2022 take 1 capsule by mouth once daily omeprazole (PRILOSEC) 20 mg capsule Indications: Gastroesophageal reflux disease, unspecified whether esophagitis present Take 1 capsule by mouth once daily. 90 capsule 3 06/05/2023 Active Comment on above: Take 1 capsule by mo ut once daily. oseltamivir 75 mg oral capsule (1 source) Neuraminidase Inhibitor Start: 2021 End: 2021 take 1 capsule by mouth twice daily oseltamivir (TAMIFLU) 75 mg capsule Take 1 capsule by mouth twice daily for 5 days. 10 capsule 0 10/05/2022 10/10/2022 Active Comment on above: Take 1 capsule by mo ut twice daily for 5 days. microencapsulated potassium chloride 20 meq extended release oral tablet (20 sources) Start: 2023 End: 2023 take 1 tablet by mouth once daily potassium chloride ER (KLOR-CON) 20 mEq tablet Take 1 tablet by mouth once daily for 7 days. 7 tablet 07/27/2024 08/03/2024 Active Start: 02-17-2024 End: 07-16-2024 take 2 tablets by mouth once daily at breakfast potassium chloride (K-TAB) 10 mEq tablet Indications: Essential hypertension Take 2 tablets by mouth daily with breakfast. 180 tablet 1 02/17/2024 07/16/2024 Discontinued (Discontinued by another Health Care Provider) Start: 10-16-2022 End: 02-17-2024 take 1 tablet by mouth once daily at breakfast potassium chloride (K-TAB) 10 mEq tablet Take 1 tablet by mouth daily with breakfast. 90 tablet 1 06/05/2023 12/19/2023 Discontinued Comment on above: Take 1 tablet by fermín th daily with breakfast. predniSONE 10 mg oral tablet (3 sources) Start: 01-04-2022 End: 01-13-2022 predniSONE (DELTASONE) 10 mg tablet Indications: Acute gout of left wrist, unspecified cause Take 4 tabs daily for 3 days, then 2 tabs daily for 3 days, then 1 tab daily for 3 days with food. 21 tablet 0 01/04/2022 01/13/2022 Active Start: 10-11-2021 End: 10-23-2021 predniSONE (DELTASONE) 10 mg tablet Take 6 tabs for 3 days, then 4 tabs for 3 days, then 2 tabs for 3 days then 1 tab for 3 days with food. 39 tablet 10/11/2021 10/23/2021 Start: 12-19-2020 End: 05-29-2021 take 4 tablets by mouth once daily, then take 3 tablets by mouth once daily, then take 2 tablets by mouth once daily, then take 1 tablet by mouth once daily predniSONE (DELTASONE) 10 mg tablet Indications: Great toe pain, left TAKE BY MOUTH 4 TABLETS DAILY FOR 2 DAYS, THEN 3 TABLETS DAILY FOR 2 DAYS, THEN 2 TABLETS DAILY FOR 2 DAYS, THEN 1 TABLET DAILY FOR 2 DAYS. 20 tablet 12/19/2020 05/29/2021 Discontinued Comment on above: Take 4 tabs daily fo r 3 days, then 2 tabs daily for 3 days, then 1 tab daily for 3 days with food. spironolactone 25 mg oral tablet (3 sources) Aldosterone Antagonist Start: take 1 tablet by mouth once daily spironolactone (ALDACTONE) 25 mg tablet Indications: Essential hypertension Take 1 tablet by mouth once daily. From Dr. Desai. 07/16/2024 Active triamcinolone acetonide 0.25 mg/ml topical cream (3 sources) Corticosteroid Start: End: triamcinolone (KENALOG) 0.025 % cream Apply to affected area twice daily for 7 days. 15 g 0 10/01/2022 10/08/2022 Active Comment on above: Apply to affected ar ea twice daily for 7 days. 30 actuat umeclidinium 0.0625 mg/actuat / vilanterol 0.025 mg/actuat dry powder inhaler (19 sources) Anticholinergic, beta2-Adrenergic Agonist Start: End: take 1 dose by inhalation once daily umeclidinium-vilante rol (ANORO ELLIPTA) 62.5-25 mcg/actuation inhaler Indications: Chronic obstructive pulmonary disease, unspecified COPD type (HCC) Inhale 1 Inhalation as instructed once daily. 1 Each 5 01/01/2024 Active Comment on above: Inhale 1 Inhalation as instructed once daily. Completed/Discontinued Medications Medication Drug Class(es) Dates Sig (Normalized) Sig (Original) atorvastatin 10 mg oral tablet (15 sources) HMG-CoA Reductase Inhibitor Start: 11-28-2020 End: 07-04-2022 take 1 tablet by mouth once daily atorvastatin (LIPITOR) 10 mg tablet Indications: Mixed hyperlipidemia Take 1 tablet by mouth once daily. 90 tablet 3 11/28/2020 04/25/2022 Discontinued Comment on above: Take 1 tablet by [facility] once daily. doxycycline monohydrate 100 mg oral capsule (1 source) Tetracycline-class Drug Start: 10-11-2021 End: 10-18-2021 take 1 capsule by mouth twice daily doxycycline monohydrate (MONODOX) 100 mg capsule Take 1 capsule by mouth twice daily for 7 days. 14 capsule 10/11/2021 10/18/2021 DULoxetine 60 mg delayed release oral capsule (20 sources) Serotonin and Norepinephrine Reuptake Inhibitor Start: 01-01-2024 End: 01-04-2024 take 1 capsule by mouth once daily DULoxetine (CYMBALTA) 60 mg capsule Indications: Idiopathic peripheral neuropathy Take 1 capsule by mouth once daily. 90 capsule 1 01/01/2024 01/04/2024 Discontinued (Discontinued by Patient) Start: 12-14-2022 End: 01-01-2024 take 2 capsules by mouth once daily DULoxetine (CYMBALTA) 20 mg capsule Indications: Idiopathic peripheral neuropathy Take 2 capsules by mouth once daily. 60 capsule 5 12/14/2022 01/01/2024 Discontinued (Dosage adjustment) Start: 11-01-2022 End: 12-14-2022 take 1 capsule by mouth once daily DULoxetine (CYMBALTA) 20 mg capsule Indications: Idiopathic peripheral neuropathy Take 1 capsule by mouth once daily. 30 capsule 1 11/01/2022 12/14/2022 Discontinued Comment on above: Take 1 capsule by mo [facility] once daily. Take 2 capsules by [facility] once daily. fluconazole 150 mg oral tablet (7 sources) Azole Antifungal Start: 2022 End: 2022 take 1 tablet by mouth every week fluconazole (DIFLUCAN) 150 mg tablet Take 1 tablet by mouth one time a week. 4 tablet 07/19/2023 08/18/2023 Comment on above: Take 1 tablet by [facility] one time a week. hydroCHLOROthiazide 12.5 mg oral capsule (20 sources) Thiazide Diuretic Start: 2020 End: 2022 take 1 capsule by mouth once daily hydroCHLOROthiazide 12.5 mg capsule Take 1 capsule by mouth once daily. 90 capsule 3 09/29/2021 10/16/2022 Discontinued Comment on above: Take 1 capsule by mo [facility] once daily. lactobacillus rhamnosus gg [id number] unt oral capsule (16 sources) Start: 2021 End: 2022 take 1 capsule by mouth once daily lactobacillus rhamnosus (CULTURELLE) 10 billion cell capsule Take 1 capsule by mouth once daily for 10 days. 10 capsule 0 03/21/2022 11/01/2022 Discontinued Comment on above: Take 1 capsule by mo [facility] once daily for 10 days. LOW-DOSE ASPIRIN ORAL (5 sources) End: 2021 take 81 mg by mouth once daily LOW-DOSE ASPIRIN ORAL Take 81 mg by mouth once daily. 03/18/2022 Discontinued take 81 mg by mouth once daily L OW-DOSE ASPIRIN ORAL Take 81 mg by mouth once daily. 0 Active Comment on above: Take 81 mg by mouth once daily. magnesium oxide 400 mg oral tablet (2 sources) Start: 07-27-2024 End: 08-03-2024 take 1 tablet by mouth once daily magnesium oxide (MAGOX) 400 mg (241.3 mg magnesium) tablet Take 1 tablet by mouth once daily for 7 days. 7 tablet 07/27/2024 07/30/2024 Discontinued (Clinical Decision) pregabalin 50 mg oral capsule (7 sources) Start: 07-04-2022 End: 10-16-2022 take 1 capsule by mouth twice daily pregabalin (LYRICA) 50 mg capsule Indications: Peripheral polyneuropathy Take 1 capsule by mouth twice daily for 90 days. 60 capsule 2 07/04/2022 10/16/2022 Discontinued (Course of therapy completed) Start: 07-04-2022 End: 07-04-2022 take 1 capsule by mouth twice daily pregabalin (LYRICA) 75 mg capsule Indications: Peripheral polyneuropathy Take 1 capsule by mouth twice daily for 90 days. 60 capsule 2 07/04/2022 07/04/2022 Discontinued Comment on above: Take 1 capsule by mo [facility] twice daily for 90 days. valACYclovir 1000 mg oral tablet (3 sources) Herpesvirus Nucleoside Analog DNA Polymerase Inhibitor, Herpes Simplex Virus Nucleoside Analog DNA Polymerase Inhibitor, Herpes Zoster Virus Nucleoside Analog DNA Polymerase Inhibitor Start: 2 End: 2 take 1 tablet by mouth three times daily valACYclovir (VALTREX) 1 gram Take 1 tablet by mouth three times daily for 7 days. 21 tablet 0 10/01/2022 10/05/2022 Discontinued (Course of therapy completed) Comment on above: Take 1 tablet by fermín three times daily for 7 days. Problems Active Problems Problem Classification Problem Date Documented Da te Episodic/Chronic Cancer of prostate (14 sources) Malignant tumor of prostate; Translations: [Malignant neoplasm of prostate] Onset: 0 Resolved: 7 01-22-2024 Chronic Cancer of prostate (20 sources) History of malignant neoplasm of prostate; Translations: [Personal history of malignant neoplasm of prostate] 09-15-2020 Episodic Chronic kidney disease (1 source) Chronic kidney disease stage 3A ; Translations: [Stage 3a chronic kidney disease (HCC)] 03-11-2024 Chronic Chronic kidney disease (2 sources) Chronic kidney disease; Translations: [Chronic kidney disease (CKD) stage G3a/A1, moderately decreased glomerular filtration rate (GFR) between 45-59 mL/min/1.73 square meter and albuminuria creatinine ratio less than 30 mg/g (HCC)] Onset: 4 Chronic obstructive pulmonary disease and bronchiectasis (15 sources) Pulmonary emphysema; Translations: [Emphysema, unspecified] Onset: 3 08-13-2023 Chronic Conduction disorders (20 sources) Incomplete right bundle branch block; Translations: [Unspecified right bundle-branch block] Onset: 0 09-16-2020 Chronic Disorders of lipid metabolism (20 sources) Mixed hyperlipidemia; Translations: [Mixed hyperlipidemia] Onset: 6 09-26-2019 Chronic Esophageal disorders (20 sources) Gastroesophageal reflux disease; Translations: [Gastro-esophageal reflux disease without esophagitis] Onset: 6 09-26-2019 Chronic Essential hypertension (20 sources) Essential hypertension; Translations: [Essential (primary) hypertension] Onset: 6 Resolved: 4 Chronic Fluid and electrolyte disorders (3 sources) Hypokalemia; Translations: [Dehydration] Onset: 4 07-30-2024 Episodic Genitourinary symptoms and ill-defined conditions (2 sources) Urinary incontinence; Translations: [Unspecified urinary incontinence] 07-19-2023 Chronic Immunizations and screening for infectious disease (2 sources) Needs influenza immunization; Translations: [Encounter for immunization] Episodic Other connective tissue disease (1 source) Bilateral calf pain; Translations: [Pain in right lower leg] Episodic Other connective tissue disease (1 source) Pain in bilateral legs; Translations: [Pain in right leg] Episodic Other gastrointestinal disorders (1 source) Constipation; Translations: [Constipation, unspecified] Episodic Other gastrointestinal disorders (13 sources) Diarrhea; Translations: [Diarrhea, unspecified] Onset: 1 Resolved: 4 09-06-2014 Episodic Other gastrointestinal disorders (2 sources) Diarrhea, unspecified; Translations: [Diarrhea, unspecified type] Onset: 4 Episodic Other inflammatory condition of skin (20 sources) Psoriasis; Translations: [Psoriasis, unspecified] Onset: 1 11-28-2020 Chronic Other lower respiratory disease (6 sources) Dyspnea on exertion; Translations: [Shortness of breath] 07-19-2023 Episodic Other lower respiratory disease (2 sources) Cough; Translations: [Cough] 10-11-2021 Episodic Other nervous system disorders (19 sources) Polyneuropathy; Translations: [Polyneuropathy, unspecified] Onset: 0 09-16-2020 Chronic Other nervous system disorders (4 sources) Idiopathic peripheral neuropathy; Translations: [Hereditary and idiopathic neuropathy, unspecified] Chronic Other nervous system disorders (20 sources) Peripheral nerve disease ; Translations: [Polyneuropathy, unspecified] Onset: 0 11-01-2022 Chronic Other nutritional; endocrine; and metabolic disorders (1 source) Hypomagnesemia; Translations: [Hypomagnesemia] Onset: 4 Chronic Other screening for suspected conditions (not mental disorders or infectious disease) (2 sources) Imaging of gastrointestinal tract abnormal; Translations: [Abnormal findings on diagnostic imaging of other parts of digestive tract] Episodic Other skin disorders (2 sources) Eruption; Translations: [Rash and other nonspecific skin eruption] Episodic Other skin disorders (1 source) Mass of skin of right lower limb; Translations: [Disorder of the skin and subcutaneous tissue, unspecified] Episodic Other skin disorders (1 source) Localized swelling of left hand; Translations: [Localized swelling, mass and lump, left upper limb] 01-04-2022 Episodic Peripheral and visceral atherosclerosis (20 sources) Atherosclerosis of artery of lower limb; Translations: [Atherosclerosis of [place] arteries of extremities with intermittent claudication, left leg] Onset: 9 Resolved: 3 09-26-2019 Chronic Residual codes; unclassified (20 sources) Insomnia; Translations: [Other insomnia] Onset: 9 09-26-2019 Chronic Respiratory failure; insufficiency; arrest (adult) (11 sources) Chronic hypoxemic respiratory failure; Translations: [Chronic respiratory failure with hypoxia] Onset: 4 01-01-2024 Chronic Screening and history of mental health and substance abuse codes (2 sources) Patient encounter status; Translations: [Encounter for screening for depression] 07-16-2024 Episodic Spondylosis; intervertebral disc disorders; other back problems (20 sources) Degeneration of lumbar intervertebral disc; Translations: [Other intervertebral disc degeneration, lumbar region] Onset: 7 11-07-2016 Chronic Substance-related disorders (20 sources) Tobacco user; Translations: [Nicotine dependence, unspecified, uncomplicated] Onset: 0 09-15-2020 Chronic Viral infection (3 sources) Viral disease; Translations: [Viral infection, unspecified] Episodic Past or Other Problems Problem Classification Problem Date Documented Date Episodic/Chronic Abdominal hernia (20 sources) Inguinal hernia; Translations: [Unilateral inguinal hernia, without obstruction or gangrene, not specified as recurrent] Onset: 10-11-2008 Resolved: 06-20-2018 11-07-2016 Episodic Acute and unspecified renal failure (20 sources) Acute injury of kidney; Translations: [Acute kidney failure, unspecified] Onset: 03-18-2022 Resolved: 11-01-2022 03-18-2022 Episodic Acute cerebrovascular disease (19 sources) Hematoma of subdural space of neuraxis; Translations: [SDH (subdural hematoma)] Onset: 09-14-2020 Resolved: 11-01-2022 03-18-2022 Chronic Cardiac dysrhythmias (20 sources) Sinus bradycardia; Translations: [Bradycardia, unspecified] Onset: 09-15-2020 09-16-2020 Episodic Deficiency and other anemia (12 sources) Anemia; Translations: [Anemia, unspecified] Onset: 09-24-2019 Resolved: 11-19-2019 11-19-2019 Episodic Diseases of white blood cells (12 sources) Leukocytosis; Translations: [Elevated white blood cell count, unspecified] Onset: 09-25-2019 Resolved: 11-19-2019 11-19-2019 Chronic Genitourinary symptoms and ill-defined conditions (12 sources) Increased frequency of urination; Translations: [Frequency of micturition] Onset: 10-02-2010 Resolved: 11-07-2016 11-07-2016 Episodic Intestinal infection (12 sources) Clostridium difficile colitis; Translations: [Enterocolitis due to Clostridium difficile, not specified as recurrent] Onset: 05-14-2017 Resolved: 06-20-2018 06-20-2018 Episodic Intracranial injury (11 sources) Hematoma of subdural space of neuraxis; Translations: [Traumatic subdural hemorrhage with loss of consciousness of unspecified duration, initial encounter] Onset: 09-14-2020 09-15-2020 Episodic Mycoses (12 sources) Tinea pedis; Translations: [Tinea pedis] Onset: 11-27-2005 Resolved: 06-14-2017 06-14-2017 Episodic Noninfectious gastroenteritis (20 sources) Colitis; Translations: [Noninfective gastroenteritis and colitis, unspecified] Onset: 03-18-2022 Resolved: 11-01-2022 03-18-2022 Episodic Other and unspecified benign neoplasm (20 sources) Benign neoplasm of rectum and anal canal; Translations: [Benign neoplasm of rectum] Onset: 05-15-2010 11-07-2016 Episodic Other connective tissue disease (12 sources) Ganglion cyst of tendon sheath; Translations: [Ganglion, unspecified site] Onset: 03-19-2007 Resolved: 11-07-2016 11-07-2016 Episodic Other connective tissue disease (12 sources) Inguinal pain; Translations: [Neuralgia and neuritis, unspecified] Onset: 03-12-2013 Resolved: 11-07-2016 11-07-2016 Episodic Other connective tissue disease (12 sources) Rotator cuff impingement syndrome; Translations: [Impingement syndrome of right shoulder] Onset: 04-10-2015 Resolved: 11-19-2019 11-19-2019 Episodic Other infections; including parasitic (20 sources) History of Clostridium difficile intestinal infection; Translations: [Personal history of other infectious and parasitic diseases] Onset: 09-15-2020 Resolved: 11-01-2022 09-15-2020 Episodic Other male genital disorders (12 sources) Disorder of prostate; Translations: [Disorder of prostate, unspecified] Onset: 06-21-2007 Resolved: 09-06-2014 09-06-2014 Episodic Other nervous system disorders (12 sources) Acute postoperative pain; Translations: [Other acute postprocedural pain] Onset: 09-20-2020 Resolved: 11-08-2020 11-08-2020 Episodic Respiratory failure; insufficiency; arrest (adult) (12 sources) Acute respiratory failure; Translations: [Acute respiratory failure with hypoxia] Onset: 09-24-2019 Resolved: 11-19-2019 11-19-2019 Episodic Spondylosis; intervertebral disc disorders; other back problems (12 sources) Lumbago co-occurrent with right-side sciatica; Translations: [Lumbago with sciatica, right side] Onset: 10-03-2015 Resolved: 05-15-2016 05-15-2016 Episodic Sprains and strains (20 sources) Sprain of shoulder rotator cuff; Translations: [Sprain of unspecified rotator cuff capsule, initial encounter] Onset: 09-20-2009 Resolved: 11-19-2019 11-07-2016 Episodic Results Test Name Value Interpretation Reference Range Facility CNOVon 07-30-2024 CNOV Office Visit (INTMWS ) TYE VAZQUEZ ([id number]) 1940 M Date Time Provider Department 07/30/24 10:40 AM PRECIOUS TEIXEIRA INTMWS During your visit today, we recorded the following information about you: Temperature Pulse Respiration Blood pressure 98.2 degrees 63/minute 22/minute 148/68 Weight 66.4 kg Precious Teixeira, 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ITTER 07/30/2024 11:47 AM Signed CC: Patient presents with: ED Follow-up HPI Tye Vazquez is a 84 year old male who presents today for above. He presented to [facility] on 07/25 with diarrhea x 2 weeks. Potassium was 2.9, treated with oral potassium. His creat was 1.24, at baseline. Stool cultures for enteric pathogens and C-diff were negative. He then presented to [place] [facility] two days later with ongoing diarrhea. Labs were essentially unremarkable other than hypokalemia and hypomagnesemia. Treated with IV mag and potassium and discharged home with oral prescriptions of both. Today patient reports no improvement in diarrhea. Taking Imodium after each BM but not helping. Averaging about 6 to 8 loose, watery stools a day. Associated with urgency and occasional incontinence in his sleep. Appetite is decreased, not eating much but is pushing fluids including water and haley fred. Denies fever, chills, abdominal pain, nausea, vomiting, black/bloody stools, rectal bleeding. He has not had a normal BM since diarrhea started. No new medications. PMH is non-contributory. Last colonoscopy was 2015, he was supposed to have repeat in three years but never done. Review of Systems Constitutional: Positive for fatigue. Negative for unexpected weight change. Respiratory: Negative for shortness of breath. Cardiovascular: Negative for palpitations and leg swelling. Genitourinary: Negative for decreased urine volume, difficulty urinating and dysuria. Neurological: Negative for dizziness, syncope, weakness, light-headedness and headaches. 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 Chronic respiratory failure with hypoxia (HCC) 01/01/2024 Clostridium difficile colitis 05/14/2017 COPD (chronic obstructive pulmonary disease) (HCC) 08/13/2023 DDD (degenerative disc disease), lumbar 11/07/2016 Diarrhea Esophageal reflux 08/29/2006 Essential hypertension, benign Inguinal hernia without mention of obstruction or gangrene, unilateral or unspecified, (not specified as recurrent) 10/11/2008 Mixed hyperlipidemia 09/02/2006 Nonspecific (abnormal) findings on radiological and other examination of abdominal area, including retroperitoneum PAD (peripheral artery disease) ([facility]) Prostate cancer ([facility]) 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. Traumatic subdural hematoma without loss of consciousness ([facility]) 09/14/2020 Umbilical hernia without mention of obstruction or gangrene 10/11/2008 PAST SURGICAL HISTORY Procedure Laterality Date ARTHROPLASTY GLENOHUMRL JT HEMIARTHROPLASTY Right 1993 Arthroplasty, shoulder right x 2. 1992, 1993. COLONOSCOPY AND POLYPECTOMY 05/15/2010 tubular adenomas removed- [place] COLONOSCOPY DIAGNOSTIC 06/05/2022 sigmoid tubular adenoma COLONOSCOPY FLX DX W/COLLJ SPEC WHEN PFRMD 04/26/2014 Colonoscopy COLONOSCOPY FLX DX W/COLLJ SPEC WHEN PFRMD 05/07/2016 Colonoscopy EGD 05/04/2022 LAMINECTOMY W/O FFD > 2 VERT SEG LUMBAR 06/11/2018 [facility] PAST SURGICAL HISTORY OF 2001 bilat cataracts, retina PAST SURGICAL HISTORY OF Left 09/2019 femoral artery PAST SURGICAL HISTORY OF 09/14/2020 CRANIOTOMY FOR EVACUATION OF SUPRATENTORIAL SUBDURAL HEMATOMA RPR 1ST INGUN HRNA AGE 5 YRS/> REDUCIBLE 11/26/2008 left RPR 1ST INGUN HRNA AGE 5 YRS/> REDUCIBLE 01/20/2018 Hernia repair, inguinal right, indirect w/medium mesh plug [facility] RPR UMBILICAL HRNA 5 YRS/> REDUCIBLE 11/26/2008 SEED IMPLANT 05/2010 for prostate cancer SIGMOIDOSCOPY FLX DX W/COLLJ SPEC BR/WA IF PFRMD 12/05/2010 ALLERGIES Patient has no known allergies. MEDICATIONS magnesium oxide (MAGOX) 400 mg (241.3 mg magnesium) tablet Take 1 tablet by mouth once daily for 7 days. potassium chloride ER (KLOR-CON) 20 mEq tablet Take 1 tablet by mouth once daily for 7 days. loperamide (IMODIUM) 2 mg cap(s) Take 1 capsule by mouth four times a day as needed for up to 7 days. spironolactone (ALDACTONE) 25 mg tablet Take 1 tablet by mouth once daily. From Dr. Desai. amLODIPine (NORVASC) 10 mg tablet Take 1 tablet by mouth once daily. gabapentin (NEURONTIN) 300 mg capsule Take 1 capsule by mouth daily at bedtime for 180 days. gabapentin (NEURONTIN) 100 mg capsule Take 1 capsule by mouth every morning for 60 days. metoprolol tartrate, short acting, (LOPRESSOR) 50 mg tablet Take 1 tablet by mouth two time (more content not included)... Normal [facility] CBC W Auto Differential pane l (Bld)on 07-27-2024 Basophils (Bld) [#/Vol] 10*3/uL Normal <0.11 [facility] Comment on above: Order Comment: Speci men Type: BLOOD SPECIMEN Ordering Facility: [facility] [place] Address: [address] [place] [address] Performed By: #### 5 7021-8 #### [facility] CLIA [id number] [address] [place] [address] [place] Basophils/100 WBC (Bld) 0.3 % Normal [facility] Comment on above: Order Comment: Speci joanie Type: BLOOD SPECIMEN Ordering Facility: [facility] [place] Address: [address] [place] [address] Performed By: #### 5 7021-8 #### [facility] CLIA [id number] [address] [place] Differential cell count method Nom (Bld) Auto Normal [facility] Comment on above: Order Comment: Kelliei joanie Type: BLOOD SPECIMEN Ordering Facility: [facility] [place] Address: [address] [place] [address] Performed By: #### 5 7021-8 #### [facility] CLIA [id number] [address] [place] [address] [place] Eosinophils (Bld) [#/Vol] 0.10 10*3/uL Normal <0.46 [facility] Comment on above: Order Comment: Speci men Type: BLOOD SPECIMEN Ordering Facility: [facility] [place] Address: [address] [place] [address] Performed By: #### 5 7021-8 #### [facility] CLIA [id number] [address] [place] Eosinophils/100 WBC (Bld) 1.5 % Normal [facility] Comment on above: Order Comment: Speci men Type: BLOOD SPECIMEN Ordering Facility: [facility] [place] Address: [address] [place] [address] Performed By: #### 5 7021-8 #### [facility] CLIA [id number] [address] [place] Erythrocyte distribution width (RBC) [Ratio] 12.9 % Normal 11.5-15.0 [facility] Comment on above: Order Comment: Speci men Type: BLOOD SPECIMEN Ordering Facility: [facility] [place] Address: [address] [place] [address] Performed By: #### 5 7021-8 #### [facility] CLIA [id number] [address] [place] Hematocrit (Bld) [Volume fraction] 37.2 % Low 39.0-51.0 [facility] Comment on above: Order Comment: Speci men Type: BLOOD SPECIMEN Ordering Facility: [facility] [place] Address: [address] [place] [address] Performed By: #### 5 7021-8 #### [facility] CLIA [id number] [address] [place] [address] [place] Hemoglobin (Bld) [Mass/Vol] 13.5 g/dL Normal 13.0-17.0 [facility] Comment on above: Order Comment: Speci men Type: BLOOD SPECIMEN Ordering Facility: [facility] [place] Address: [address] [place] [address] Performed By: #### 5 7021-8 #### [facility] CLIA [id number] [address] Immature granulocytes (Bld) [#/Vol] 0.05 10*3/uL Normal <0.10 [facility] Comment on above: Order Comment: Speci men Type: BLOOD SPECIMEN Ordering Facility: [facility] [place] Address: [address] [place] [address] Performed By: #### 5 7021-8 #### [facility] CLIA [id number] [address] [place] Immature granulocytes/100 WBC (Bld) 0.8 % Normal [facility] Comment on above: Order Comment: Speci men Type: BLOOD SPECIMEN Ordering Facility: [facility] [place] Address: [address] [place] [address] Performed By: #### 5 7021-8 #### [facility] CLIA [id number] [address] [place] Lymphocytes (Bld) [#/Vol] 1.18 10*3/uL Normal 1.00-4.00 [facility] Comment on above: Order Comment: Speci men Type: BLOOD SPECIMEN Ordering Facility: [facility] [place] Address: [address] [place] [address] Performed By: #### 5 7021-8 #### [facility] CLIA [id number] [address] Lymphocytes/100 WBC (Bld) 17.8 % Normal [facility] Comment on above: Order Comment: Speci men Type: BLOOD SPECIMEN Ordering Facility: [facility] [place] Address: [address] [place] [address] Performed By: #### 5 7021-8 #### [facility] CLIA [id number] [address] [place] MCH (RBC) [Entitic mass] 33.8 pg Normal 26.0-34.0 [facility] Comment on above: Order Comment: Speci men Type: BLOOD SPECIMEN Ordering Facility: [facility] [place] Address: [address] [place] [address] Performed By: #### 5 7021-8 #### [facility] CLIA [id number] [address] [place] MCHC (RBC) [Mass/Vol] 36.3 g/dL High 30.5-36.0 [facility] Comment on above: Order Comment: Speci men Type: BLOOD SPECIMEN Ordering Facility: [facility] [place] Address: [address] [place] [address] Performed By: #### 5 7021-8 #### [facility] CLIA [id number] [address] [place] MCV (RBC) [Entitic vol] 93.2 fL Normal 80.0-100.0 [facility] Comment on above: Order Comment: Speci men Type: BLOOD SPECIMEN Ordering Facility: [facility] [place] Address: [address] [place] [address] Performed By: #### 5 7021-8 #### [facility] CLIA [id number] [address] [place] [address] [place] Monocytes (Bld) [#/Vol] 0.58 10*3/uL Normal <0.87 [facility] Comment on above: Order Comment: Speci men Type: BLOOD SPECIMEN Ordering Facility: [facility] [place] Address: [address] [place] [address] Performed By: #### 5 7021-8 #### [facility] CLIA [id number] [address] Monocytes/100 WBC (Bld) 8.7 % Normal [facility] Comment on above: Order Comment: Speci men Type: BLOOD SPECIMEN Ordering Facility: [facility] [place] Address: [address] [place] [address] Performed By: #### 5 7021-8 #### [facility] CLIA [id number] [address] [place] [address] [place] Neutrophils (Bld) [#/Vol] 4.71 10*3/uL Normal 1.45-7.50 [facility] Comment on above: Order Comment: Speci men Type: BLOOD SPECIMEN Ordering Facility: [facility] [place] Address: [address] [place] [address] Performed By: #### 5 7021-8 #### [facility] CLIA [id number] [address] [place] Neutrophils/100 WBC (Bld) 70.9 % Normal [facility] Comment on above: Order Comment: Speci men Type: BLOOD SPECIMEN Ordering Facility: [facility] [place] Address: [address] [place] [address] Performed By: #### 5 7021-8 #### [facility] CLIA [id number] [address] [place] [address] [place] Nucleated RBC (Bld) [#/Vol] 10*3/uL Normal <0.01 [facility] Comment on above: Order Comment: Speci men Type: BLOOD SPECIMEN Ordering Facility: [facility] [place] Address: [address] [place] [address] Performed By: #### 5 7021-8 #### [facility] CLIA [id number] [address] [place] Nucleated RBC/100 WBC (Bld) [Ratio] 0.0 /100 WBC Normal [facility] Comment on above: Order Comment: Speci men Type: BLOOD SPECIMEN Ordering Facility: [facility] [place] Address: [address] [place] [address] Performed By: #### 5 7021-8 #### [facility] CLIA [id number] [address] [place] [address] [place] Platelet mean volume (Bld) [Entitic vol] 10.3 fL Normal 9.0-12.7 [facility] Comment on above: Order Comment: Speci men Type: BLOOD SPECIMEN Ordering Facility: [facility] [place] Address: [address] [place] [address] Performed By: #### 5 7021-8 #### [facility] CLIA [id number] [address] [place] [address] [place] Platelets (Bld) [#/Vol] 190 10*3/uL Normal 150-400 [facility] Comment on above: Order Comment: Speci men Type: BLOOD SPECIMEN Ordering Facility: [facility] [place] Address: [address] [place] [address] Performed By: #### 5 7021-8 #### [facility] CLIA [id number] [address] [place] RBC (Bld) [#/Vol] 3.99 10*6/uL Low 4.20-6.00 [facility] Comment on above: Order Comment: Speci men Type: BLOOD SPECIMEN Ordering Facility: [facility] [place] Address: [address] [place] [address] Performed By: #### 5 7021-8 #### [facility] CLIA [id number] [address] [place] [address] [place] WBC (Bld) [#/Vol] 6.64 10*3/uL Normal 3.70-11.00 [facility] Comment on above: Order Comment: Speci men Type: BLOOD SPECIMEN Ordering Facility: [facility] [place] Address: [address] [place] [address] Performed By: #### 5 7021-8 #### [facility] CLIA [id number] [address] OF [facility] Comprehensive metabolic 2000 panelon 07-27-2024 Albumin [Mass/Vol] 4.1 g/dL Normal 3.9-4.9 [facility] Comment on above: Order Comment: Speci men Type: BLOOD SPECIMEN Ordering Facility: [facility] [place] Address: [address] [place] [address] Performed By: #### 3 040-3, 12986-0, 14427-5 #### [facility] CLIA [id number] [address] STATES OF [facility] ALP [Catalytic activity/Vol] 80 U/L Normal 38-113 [facility] Comment on above: Order Comment: Speci men Type: BLOOD SPECIMEN Ordering Facility: [facility] [place] Address: [address] [place] [address] Performed By: #### 3 040-3, 76971-5, 66719-8 #### [facility] CLIA [id number] [address] ALT [Catalytic activity/Vol] 10 U/L Normal 10-54 [facility] Comment on above: Order Comment: Speci men Type: BLOOD SPECIMEN Ordering Facility: [facility] [place] Address: [address] [place] [address] Performed By: #### 3 040-3, , #### [facility] CLIA [id number] [address] [place] [address] [place] Anion gap [Moles/Vol] 13 mmol/L Normal 8-15 [facility] Comment on above: Order Comment: Speci men Type: BLOOD SPECIMEN Ordering Facility: [facility] [place] Address: [address] [place] [address] Performed By: #### 3 040-3, , #### [facility] CLIA [id number] [address] [place] [address] [place] AST [Catalytic activity/Vol] 19 U/L Normal 14-40 [facility] Comment on above: Order Comment: Speci men Type: BLOOD SPECIMEN Ordering Facility: [facility] [place] Address: [facility] [place] [address] Performed By: #### 3 040-3, , #### [facility] CLIA [id number] [address] [place] [address] [place] Bilirubin [Mass/Vol] 0.3 mg/dL Normal 0.2-1.3 [facility] Comment on above: Order Comment: Speci men Type: BLOOD SPECIMEN Ordering Facility: [facility] [place] Address: [address] [place] [address] Performed By: #### 3 040-3, , #### [facility] CLIA [id number] [address] [place] [address] [place] Calcium [Mass/Vol] 8.9 mg/dL Normal 8.5-10.2 [facility] Comment on above: Order Comment: Speci men Type: BLOOD SPECIMEN Ordering Facility: [facility] [place] Address: [address] [place] [address] Performed By: #### 3 040-3, , #### [facility] CLIA [id number] [address] [place] [address] [place] Chloride [Moles/Vol] 102 mmol/L Normal 98-107 [facility] Comment on above: Order Comment: Georgi nair Type: BLOOD SPECIMEN Ordering Facility: [facility] [place] Address: [address] [place] [address] Performed By: #### 3 040-3, , #### [facility] CLIA [id number] [address] CO2 [Moles/Vol] 21 mmol/L Low 22-30 [facility] Comment on above: Order Comment: Speci men Type: BLOOD SPECIMEN Ordering Facility: [facility] [place] Address: [address] [place] [address] Performed By: #### 3 040-3, , #### [facility] CLIA [id number] [address] Creatinine [Mass/Vol] 1.28 mg/dL High 0.73-1.22 [facility] Comment on above: Order Comment: Kelliei men Type: BLOOD SPECIMEN Ordering Facility: [facility] [place] Address: [address] [place] [address] Performed By: #### 3 040-3, , #### [facility] CLIA [id number] [address] Creatinine and Glomerular filtration rate.predicted panel (S/P/Bld) 55 mL/min/1.73m??? Low >=60 [facility] Comment on above: Order Comment: Georgi nair Type: BLOOD SPECIMEN Ordering Facility: [facility] [place] Address: [address] [place] [address] Result Comment: Nereida mated Glomerular Filtration Rate (eGFR) is calculated using the 2020 CKD-EPI creatinine equation. This equation utilizes serum creatinine, sex, and age as parameters. The creatinine assay has traceable calibration to isotope dilution-mass spectrometry. Refer to KDIGO guidelines for clinical interpretation. In patients with unstable renal function, e.g. those with acute kidney injury, the eGFR may not accurately reflect actual GFR. Performed By: #### 3 040-3, 86800-7, 94745-5 #### [facility] CLIA [id number] [address] [place] [address] [place] Glucose [Mass/Vol] 88 mg/dL Normal 74-99 [facility] Comment on above: Order Comment: Georgi nair Type: BLOOD SPECIMEN Ordering Facility: [facility] [place] Address: [address] [place] [address] Result Comment: The [place] Diabetes Association (ADA) provides guidance for cutoff values for fasting glucose and random glucose. The ADA defines fasting as no caloric intake for at least 8 hours. Fasting plasma glucose results between 100 to 125 mg/dL indicate increased risk for diabetes (prediabetes). Fasting plasma glucose results greater than or equal to 126 mg/dL meet the criteria for diagnosis of diabetes. In the absence of unequivocal hyperglycemia, results should be confirmed by repeat testing. In a patient with classic symptoms of hyperglycemia or hyperglycemic crisis, random plasma glucose results greater than or equal to 200 mg/dL meet the criteria for diagnosis of diabetes. Reference: Standards of Medical Care in Diabetes 2016, [place] [employer] Association. Diabetes Care. 2016.39(Suppl 1). Performed By: #### 3 040-3, , #### [facility] CLIA [id number] [address] [place] [address] [place] Potassium [Moles/Vol] 2.9 mmol/L Low 3.7-5.1 [facility] Comment on above: Order Comment: Georgi nair Type: BLOOD SPECIMEN Ordering Facility: [facility] [place] Address: [address] [place] [address] Performed By: #### 3 040-3, , #### [facility] CLIA [id number] [address] [place] [address] [place] Protein [Mass/Vol] 6.9 g/dL Normal 6.3-8.0 [facility] Comment on above: Order Comment: Georgi nair Type: BLOOD SPECIMEN Ordering Facility: [facility] [place] Address: [address] [place] [address] Performed By: #### 3 040-3, , #### [facility] CLIA [id number] [address] [place] [address] [place] Sodium [Moles/Vol] 136 mmol/L Normal 136-144 [facility] Comment on above: Order Comment: Speci men Type: BLOOD SPECIMEN Ordering Facility: [facility] [place] Address: [address] [place] [address] Performed By: #### 3 040-3, 64904-3, #### [facility] CLIA [id number] [address] [place] [address] [facility] Urea nitrogen [Mass/Vol] 25 mg/dL High 07-07 [facility] Comment on above: Order Comment: Speci men Type: BLOOD SPECIMEN Ordering Facility: [facility] [place] Address: [address] [place] [address] Performed By: #### 3 040-3, 41788-8, #### [facility] CLIA [id number] [address] ED NOTEon 07-27-2024 ED NOTE HNO ID: [id number] Author: SARA OLIVIA RN Service: ? Author Type: Registered Nurse Type: ED Notes Filed: 07/27/2024 21:35 Note Text: .Patient discharged, given verbal and written discharge instructions. Patient verbalized understanding. Nurse discussed medication (potassium, magox, immodium) that were prescribed and follow up appointments (PCP) and signs/symptoms of worsening conditions, and reasons why to come back to the emergency department. Normal [facility] ED PROV NOTEon 07-27-2024 ED PROV NOTE HNO ID: [id number] Author: NIDA BENAVIDEZ DO Service: Emergency Medicine Author Type: Physician Type: ED Provider Notes Filed: 07/27/2024 20:31 Note Text: ED Provider Note Patient Name: Tye Vazquez : 1940 SERVICE DATE: 07/27/24 History Patient presents with: Diarrhea: x 2 weeks, after eating. denies abd pain 84-year-old male with a history of COPD, C. difficile colitis, PID, prostate cancer status posttreatment presenting to the ER today for diarrhea x 2 weeks. Denies any blood in the stool, abdominal pain, urinary symptoms. Patient admits to black stools but only while taking Pepto-Bismol. He did not try anything else prior to arrival. Describes it as brown and watery. Denies any high risk behavior including, but not limited to: Out of the country travel, drinking out of tainted water sources, recent antibiotics 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 Chronic respiratory failure with hypoxia (HCC) 01/01/2024 Clostridium difficile colitis 05/14/2017 COPD (chronic obstructive pulmonary disease) (HCC) 08/13/2023 DDD (degenerative disc disease), lumbar 11/07/2016 Diarrhea Esophageal reflux 08/29/2006 Essential hypertension, benign Inguinal hernia without mention of obstruction or gangrene, unilateral or unspecified, (not specified as recurrent) 10/11/2008 Mixed hyperlipidemia 09/02/2006 Nonspecific (abnormal) findings on radiological and other examination of abdominal area, including retroperitoneum PAD (peripheral artery disease) (HCC) Prostate cancer (HCC) 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. Traumatic subdural hematoma without loss of consciousness (HCC) 09/14/2020 Umbilical hernia without mention of obstruction or gangrene 10/11/2008 PAST SURGICAL HISTORY Procedure Laterality Date ARTHROPLASTY GLENOHUMRL JT HEMIARTHROPLASTY Right 1994 Arthroplasty, shoulder right x 2. 1991, 1993. COLONOSCOPY AND POLYPECTOMY 05/15/2010 tubular adenomas removed- Provencal COLONOSCOPY DIAGNOSTIC 06/05/2022 sigmoid tubular adenoma COLONOSCOPY FLX DX W/COLLJ SPEC WHEN PFRMD 04/26/2014 Colonoscopy COLONOSCOPY FLX DX W/COLLJ SPEC WHEN PFRMD 05/07/2016 Colonoscopy EGD 05/04/2022 LAMINECTOMY W/O FFD > 2 VERT SEG LUMBAR 06/11/2018 [facility] PAST SURGICAL HISTORY OF 2001 bilat cataracts, retina PAST SURGICAL HISTORY OF Left 09/2019 femoral artery PAST SURGICAL HISTORY OF 09/14/2020 CRANIOTOMY FOR EVACUATION OF SUPRATENTORIAL SUBDURAL HEMATOMA RPR 1ST INGUN HRNA AGE 5 YRS/> REDUCIBLE 11/26/2008 left RPR 1ST INGUN HRNA AGE 5 YRS/> REDUCIBLE 01/20/2018 Hernia repair, inguinal right, indirect w/medium mesh plug [facility] RPR UMBILICAL HRNA 5 YRS/> REDUCIBLE 11/26/2008 SEED IMPLANT 05/2010 for prostate cancer SIGMOIDOSCOPY FLX DX W/COLLJ SPEC BR/WA IF PFRMD 12/05/2010 FAMILY HISTORY Problem Relation Age of Onset Stroke Mother Blood Disease Father No Known Problems Sister No Known Problems Sister Diabetes Brother skin cancer Prostate Cancer Brother Cancer Brother Coronary Artery Disease Brother other (Other) Brother paraplegia Prostate Cancer Brother No Ocular Disease Other Social History Tobacco Use Smoking status: Every Day Current packs/day: 0.50 Average packs/day: 0.5 packs/day for 63.4 years (31.7 ttl pk-yrs) Types: Cigarettes Start date: 02/22/1961 Smokeless tobacco: Never Vaping Use Vaping status: Never Used Substance and Sexual Activity Alcohol use: Yes Alcohol/week: 7.0 standard drinks of alcohol Types: 7 Glasses of Wine (5oz) per week Drug use: No Sexual activity: Not on file ALLERGIES No Known Allergies Review of Systems Respiratory: Negative for shortness of breath. Cardiovascular: Negative for chest pain. Gastrointestinal: Positive for diarrhea. Negative for abdominal pain, constipation, nausea and vomiting. Allergic/Immunologic: Negative for immunocompromised state. All other systems reviewed and are negative. Physical Exam Vitals [07/27/24 1854] BP Pulse Temp Temp src Resp SpO2 Weight Height 179/75 66 36.8 ?C (98.3 ?F) Oral 20 96 % 68.7 kg (151 lb 7.3 oz) 1.702 m (5' 7 ) Physical Exam Vitals and nursing note reviewed. Constitutional: General: He is not in acute distress. Appearance: He is well-developed. He is not ill-appearing. HENT: Head: Normocephalic and atraumatic. Eyes: Conjunctiva/sclera: Conjunctivae normal. Neck: Thyroid: No thyromegaly. Trachea: No tracheal deviation. Cardiovascular: Rate and Rhythm: Normal rate and regular rhythm. Pulmonary: Effort: Pulmonary effort is normal. No respiratory distress. Breath sounds: Normal breath sounds. Abdominal: General: Abdomen is flat. Bowel sounds are normal. There is no distension. Palpat (more content not included)... Normal [facility] Lipase SerPl-cCncon 07-27-20 24 Lipase [Catalytic activity/Vol] 31 U/L Normal 16-61 [facility] Comment on above: Order Comment: Speci men Type: BLOOD SPECIMEN Ordering Facility: [facility] [place] Address: [address] [place], [place] [address] Performed By: #### 3 040-3, 91357-2, 14782-6 #### [facility] CLIA [id number] [address] [place] Magnesium SerPl-mCncon 07-27 Magnesium [Mass/Vol] 1.5 mg/dL Low 1.7-2.3 [facility] Comment on above: Order Comment: Georgi nair Type: BLOOD SPECIMEN Ordering Facility: [facility] [place] Address: [address] [place] [address] Performed By: #### 3 040-3, 53675-2, 52224-9 #### [facility] CLIA [id number] [address] [place] PT panel Coag (PPP)on 2023 INR Coag (PPP) [Relative time] 1.0 {INR} Normal 0.9-1.3 [facility] Comment on above: Order Comment: Georgi nair Type: BLOOD SPECIMEN Ordering Facility: [facility] [place] Address: [address] [place] [address] Result Comment: Christiane min K Antagonist (VKA) Therapeutic Range: INR 2 to 3 (Target INR of 2.5) Note: For patients treated with VKA drugs, such as warfarin, the [employer] 2012 Guideline recommends a therapeutic INR range of 2 to 3 (target INR of 2.5). This recommendation includes high-risk patients with antiphospholipid syndrome with previous arterial or venous thromboembolism, current-generation mechanical or bioprosthetic aortic heart valve replacement. Note: Patients with mechanical aortic valve replacement and additional risk factors for thromboembolic events (atrial fibrillation, previous thromboembolism, LV dysfunction, hypercoagulable conditions) or an older generation mechanical AVR (i.e., ball in-Cage) or any mechanical MVR should have a INR therapeutic range of 2.5 to 3.5 (target INR of 3). Manisha JORGENSEN, et al. Chest 2012, 141:7S-47S Ignacio DAILEY et al. [facility] 2017, 70: 252-289 Performed By: #### 3 4528-0 #### [facility] CLIA [id number] [address] [place] PT Coag (PPP) [Time] 11.0 s Normal 9.7-13.0 [facility] Comment on above: Order Comment: Speci men Type: BLOOD SPECIMEN Ordering Facility: [facility] [place] Address: [address] [place] [address] Performed By: #### 3 4528-0 #### [facility] CLIA [id number] [address] CNOVon 07-16-2024 CNOV Office Visit (INTMWS ) TYE VAZQUEZ ([id number]) 1940 M Date Time Provider Department 07/16/24 6:20 PM TALON BOLAÑOS INTMWS During your visit today, we recorded the following information about you: Temperature Pulse Respiration Blood pressure 97.9 degrees 65/minute 20/minute 182/6 Weight Height 66.2 kg 1.632 m Carline Jarvis MA 07/16/2024 7:14 PM Signed BP Manual readin/64 Pulse: 63 LEFT arm LARGE cuff BP Eliza Average: 182/64 Pulse: 65 LEFT arm LARGE cuff 1. 179/78 Pulse: 65 2. 187/72 Pulse: 65 3. 178/51 Pulse: 65 4. 180/69 Pulse: 65 BP ELIZA AVERAGE: 182/64 Pulse: 65 Talon Bolaños MD 07/16/2024 10:40 PM Signed Tye Vazquez is a 84 year old male here for a Medicare wellness visit. Medicare Health Risk Assessment General Health Fair Exercise: Minutes/Day 0 min Exercise: Days/Week 0 days Alcohol: Daily Use 4 or more times a week Alcohol: Drinks/Day 1 or 2 Alcohol: 6 or more drinks Never Feel off balance No Concerns: Teeth/Dentures No Concerns: Sexual function No Troubled by feelings None of the above Frequency: Eating healthy diet Nearly every day ADLs requiring help Housework Safety precautions in home/vehicle Yes Smoke, vape, chews tobacco Yes, but I'm not ready to quit Difficulty hearing Yes Difficulty seeing No Current Providers Specialists: I have reviewed specialist-related care of the patient in the medical record. Current care team: Patient Care Team: Talon Bolaños MD as PCP - General (Internal Medicine) Laverne Juarez MD (Pulmonary) Outside specialists seen: Lorne Tyson MD (Pain Management) Abdirizak Mosquera MD (Vascular Surgery) Champ Desai MD (Nephrology) [facility]. Medical/Family history review Reviewed and updated problem list, medical/surgical/family/soci al history, medications, and allergies. Opioid use review Opioid Medications (last 90 days) No data to display Anxiety/Depression screening PHQ-2 Score: 0 (Lower risk for depression) KODI-2 Score: 0 (Lower risk for anxiety) Recommendation: no further intervention at this time Cognitive screening Cognitive screening reviewed and No further action needed (score 3-5). Functional Observation Was the patient's Timed Up AND Go test unsteady or >= 12 seconds? No Advance Care Planning Surrogate decision maker documented and/or advance directives scanned in chart Measurements BP (!) 182/6 (BP Site: Left Arm, BP Position: Sitting, BP Cuff Size: Large Adult) Pulse 65 Temp 36.6 ?C (97.9 ?F) (Temporal) Resp 20 Ht 163.2 cm (5' 4.25 ) Wt 66.2 kg (145 lb 15.1 oz) SpO2 96% BMI 24.86 kg/m? Vision Screening: Follows with optometry/ophthalmology Right: 20/50 Left: 20/ 25 Both: 20/20 Assessment/Plan Medicare annual wellness visit, subsequent (Z00.00) - Counseled on healthy diet and regular exercise - Fall avoidance information provided - Personalized prevention plan provided - Smoking cessation encouraged; discussed risks to health and quitting strategies. Patient is not ready to quit Talon Bolaños MD 07/16/2024 10:40 PM Signed This note was created using Penxyter. Subjective Tye Vazquez was here for follow up. His hypertension was not controlled. His individual pension adviser stopped potassium and added aldactone. He stated he was taking amlodipine, but this was not visible on medication reconciliation. He just had a CT scan of his lumbar spine per Dr. Tyson, pain management. He will be having back injections. Review of Systems Constitutional: Negative for appetite change, fatigue, fever and unexpected weight change. HENT: Negative. Respiratory: Negative for cough and shortness of breath. Cardiovascular: Negative for chest pain, palpitations and leg swelling. Gastrointestinal: Negative for abdominal pain, constipation, diarrhea, nausea and vomiting. Genitourinary: Negative for difficulty urinating and dysuria. Musculoskeletal: Positive for back pain. Negative for gait problem. Neurological: Negative for dizziness, weakness, numbness and headaches. ACTIVE PROBLEM LIST Esophageal Reflux Mixed Hyperlipidemia Benign Neoplasm of Rectum and Anal Canal Tobacco Use Disorder History of Prostate Cancer Essential Hypertension Ddd (Degenerative Disc Disease), Lumbar Pad (Peripheral Artery Disease) ([facility]) Other Insomnia Incomplete Rbbb Sinus Bradycardia Peripheral Neuropathy Psoriasis Copd (Chronic Obstructive Pulmonary Disease) ([facility]) Chronic Respiratory Failure With Hypoxia ([facility]) Social History Tobacco Use Smoking status: Every Day Current packs/day: 0.50 Average packs/day: 0.5 packs/day for 63.4 years (31.7 ttl pk-yrs) Types: Cigarettes Start date: 02/22/1961 Smokeless tobacco: Never Vaping Use Vaping status: Never Used Substance (more content not included)... Normal [facility] Aldost SerPl-ncon 06-16-20 24 Aldosterone [Mass/Vol] 20.8 ng/dL Normal 0.0-<35.4 [facility] Comment on above: Order Comment: Speci men Type: BLOOD SPECIMENOrdering Facility: [address] Address: [address] [place], [place] [id number] Result Comment: The reference interval for serum/plasma aldosterone is based on a normal sodium intake and upright position. High sodium intake may suppress aldosterone and low sodium intake may increase aldosterone. The supine reference interval is <23.7 ng/dL. A ratio of aldosterone in ng/dL to direct renin in pg/mL greater than or equal to 3.8 is a positive screening test result for primary aldosteronism, when aldosterone is greater than or equal to 15 ng/dL. Performed By: #### 1 763-2 ####[facility] [id number] [place] [address] [place] DIRECT RENIN PLASMAon 2023 DIRECT RENIN 2.6 pg/mL Low 3.6-81.6 [facility] Comment on above: Order Comment: Georgi nair Type: BLOOD SPECIMENOrdering Facility: [facility] [place] Address: [place] [address] Result Comment: A ra desire of aldosterone in ng/dL to direct renin in pg/mL greater than or equal to 3.8 is a positive screening test result for primary aldosteronism, when aldosterone is greater than or equal to 15 ng/dL. The reference interval for direct renin is based on an upright position. The supine reference intervals are: Age <41 years: 3.2-33.2 pg/mL Age >=41 years: 2.5-45.1 pg/mL Performed By: #### R ENIND ####[facility] [id number] [place] [address] [place] PATIENT UPRIGHT OR SUPINE Upright Normal [facility] Comment on above: Order Comment: Georgi nair Type: BLOOD SPECIMENOrdering Facility: [facility] [place] Address: [address] [place] [address] Performed By: #### R ENIND ####[facility] [id number] [place] [address] [place] METANEPHRINES, FREE PLASMAon 06-16-2024 METANEPHRINE, PLASMA 67 pg/mL Normal 12-67 [facility] Comment on above: Order Comment: Georgi nair Type: BLOOD SPECIMENOrdering Facility: [facility] [place] Address: [place] [address] Result Comment: Refe rence Ranges: Hypertensive adult > or = 18 yrs old: 12-72 pg/mL Normotensive adult > or = 18 yrs old: 12-67 pg/mL Normotensive children < 18 yrs old: 10-95 pg/mL Performed By: #### P METAN ####[facility]IA [id number] [place] [id number] [place] NORMETANEPHRINE, PLASMA 257 pg/mL High 18-101 [facility] Comment on above: Order Comment: Speci men Type: BLOOD SPECIMENOrdering Facility: [facility] [place] Address: [place] [address] Result Comment: Refe rence Ranges: Hypertensive adult > or = 18 yrs old: 24-145 pg/mL Normotensive adult > or = 18 yrs old: 18-101 pg/mL Normotensive children < 18 yrs old: 22-83 pg/mL Methyldopa may cause false elevation of normetanephrine levels in this assay. If patient is on methyldopa, interpret results with caution. Performed By: #### P METAN ####[facility]IA [id number] [place] [address] [place] Renal function 2000 panelon 06-16-2024 Albumin [Mass/Vol] 4.2 g/dL Normal 3.9-4.9 [facility] Comment on above: Order Comment: Speci men Type: BLOOD SPECIMENOrdering Facility: [facility] Address: [address] [place] [address] Performed By: #### 2 4362-6 ####[facility]IA [id number] [place] [address] [place] Anion gap [Moles/Vol] 13 mmol/L Normal 8-15 [facility] Comment on above: Order Comment: Speci men Type: BLOOD SPECIMENOrdering Facility: [facility] Address: [facility] [place] [id number] Performed By: #### 2 4362-6 ####[facility]IA [id number] [place] [address] [place] Calcium [Mass/Vol] 9.6 mg/dL Normal 8.5-10.2 [facility] Comment on above: Order Comment: Speci men Type: BLOOD SPECIMENOrdering Facility: [facility] Address: [address] [place] [address] Performed By: #### 2 4362-6 ####[facility]CLIA [id number] [address] [address] [place] Chloride [Moles/Vol] 98 mmol/L Normal 98-107 [facility] Comment on above: Order Comment: Speci men Type: BLOOD SPECIMENOrdering Facility: [facility] Address: [address] [place] [address] Performed By: #### 2 4362-6 ####[facility]CLIA [id number] [place] [id number] [place] CO2 [Moles/Vol] 22 mmol/L Normal 22-30 [facility] Comment on above: Order Comment: Speci men Type: BLOOD SPECIMENOrdering Facility: Address: [address] [place] [address] Performed By: #### 2 4362-6 ####[facility]IA [id number] [place] [id number] [place] Creatinine [Mass/Vol] 1.41 mg/dL High 0.73-1.22 [facility] Comment on above: Order Comment: Speci men Type: BLOOD SPECIMENOrdering Facility: Address: [address] [place] [address] Performed By: #### 2 4362-6 ####[facility]CLIA [id number] [place] [id number] [place] Creatinine and Glomerular filtration rate.predicted panel (S/P/Bld) 49 mL/min/1.73m??? Low >=60 [facility] Comment on above: Order Comment: Speci men Type: BLOOD SPECIMENOrdering Facility: [facility] Address: [address] [place] [address] Result Comment: Nereida mated Glomerular Filtration Rate (eGFR) is calculated using the 2020 CKD-EPI creatinine equation. This equation utilizes serum creatinine, sex, and age as parameters. The creatinine assay has traceable calibration to isotope dilution-mass spectrometry. Refer to KDIGO guidelines for clinical interpretation. In patients with unstable renal function, e.g. those with acute kidney injury, the eGFR may not accurately reflect actual GFR. Performed By: #### 2 4362-6 ####[facility]IA [id number] [address] [address] [place] Glucose [Mass/Vol] 76 mg/dL Normal 74-99 [facility] Comment on above: Order Comment: Speci men Type: BLOOD SPECIMENOrdering Facility: [address] Address: [address] [place] [address] Result Comment: The [place] Diabetes Association (ADA) provides guidance for cutoff values for fasting glucose and random glucose. The ADA defines fasting as no caloric intake for at least 8 hours. Fasting plasma glucose results between 100 to 125 mg/dL indicate increased risk for diabetes (prediabetes). Fasting plasma glucose results greater than or equal to 126 mg/dL meet the criteria for diagnosis of diabetes. In the absence of unequivocal hyperglycemia, results should be confirmed by repeat testing. In a patient with classic symptoms of hyperglycemia or hyperglycemic crisis, random plasma glucose results greater than or equal to 200 mg/dL meet the criteria for diagnosis of diabetes. Reference: Standards of Medical Care in Diabetes 2016, [place] Diabetes Association. Diabetes Care. 2016.39(Suppl 1). Performed By: #### 2 4362-6 ####[facility]CLIA [id number] [address] [address] [place] Phosphate [Mass/Vol] 2.7 mg/dL Normal 2.7-4.8 [facility] Comment on above: Order Comment: Georgi nair Type: BLOOD SPECIMENOrdering Facility: [address] Address: [address] [place] [address] Performed By: #### 2 4362-6 ####[facility]CLIA [id number] [address] [address] [place] Potassium [Moles/Vol] 3.9 mmol/L Normal 3.7-5.1 [facility] Comment on above: Order Comment: Speci men Type: BLOOD SPECIMENOrdering Facility: [facility] Address: [address] [place] [address] Performed By: #### 2 4362-6 ####[facility]CLIA [id number] [address] [address] [place] Sodium [Moles/Vol] 133 mmol/L Low 136-144 [facility] Comment on above: Order Comment: Speci men Type: BLOOD SPECIMENOrdering Facility: Address: [address] [place] [address] Performed By: #### 2 4362-6 ####[facility]CLIA [id number] [place] [address] [place] Urea nitrogen [Mass/Vol] 24 mg/dL Normal 9-24 [facility] Comment on above: Order Comment: Speci men Type: BLOOD SPECIMENOrdering Facility: Address: [address] [place] [address] Performed By: #### 2 4362-6 ####[facility] LABCLIA [id number] [place] [address] [place] Aldost SerPl-mCncon 05-04-20 24 Aldosterone [Mass/Vol] 13.4 ng/dL Normal 0.0-<35.4 [facility] Comment on above: Order Comment: Speci men Type: BLOOD SPECIMENOrdering Facility: [facility] Address: [address] [place] [address] Result Comment: The reference interval for serum/plasma aldosterone is based on a normal sodium intake and upright position. High sodium intake may suppress aldosterone and low sodium intake may increase aldosterone. The supine reference interval is <23.7 ng/dL. A ratio of aldosterone in ng/dL to direct renin in pg/mL greater than or equal to 3.8 is a positive screening test result for primary aldosteronism, when aldosterone is greater than or equal to 15 ng/dL. Performed By: #### 1 763-2, RENIND ####[facility] LABCLIA [id number] [place] [address] [place] DIRECT RENIN PLASMAon 2023 DIRECT RENIN <2.1 Low 3.6-81.6 [facility] Comment on above: Order Comment: Georgi nair Type: BLOOD SPECIMENOrdering Facility: [facility] [place] Address: [place] [address] Result Comment: A ra desire of aldosterone in ng/dL to direct renin in pg/mL greater than or equal to 3.8 is a positive screening test result for primary aldosteronism, when aldosterone is greater than or equal to 15 ng/dL. The reference interval for direct renin is based on an upright position. The supine reference intervals are: Age <41 years: 3.2-33.2 pg/mL Age >=41 years: 2.5-45.1 pg/mL Performed By: #### 1 763-2, RENIND ####[facility] LABCLIA [id number] [place] [address] [place] PATIENT UPRIGHT OR SUPINE Supine [facility] [facility] Comment on above: Order Comment: Georgi nair Type: BLOOD SPECIMENOrdering Facility: [facility] [place] Address: [place] [address] Performed By: #### 1 763-2, RENIND ####[facility] LABCLIA [id number] [place] [address] [place] METANEPHRINES, FREE PLASMAon 05-04-2024 METANEPHRINE, PLASMA 80 pg/mL High 12-67 [facility] Comment on above: Order Comment: Georgi nair Type: BLOOD SPECIMENOrdering Facility: [facility] [place] Address: [place] [address] Result Comment: Refe rence Ranges: Hypertensive adult > or = 18 yrs old: 12-72 pg/mL Normotensive adult > or = 18 yrs old: 12-67 pg/mL Normotensive children < 18 yrs old: 10-95 pg/mL Performed By: #### P METAN ####[facility] LABCLIA [id number] [place] [address] [place] NORMETANEPHRINE, PLASMA 156 pg/mL High 18-101 [facility] Comment on above: Order Comment: Georgi nair Type: BLOOD SPECIMENOrdering Facility: Address: [address] [place] [address] Result Comment: Refe rence Ranges: Hypertensive adult > or = 18 yrs old: 24-145 pg/mL Normotensive adult > or = 18 yrs old: 18-101 pg/mL Normotensive children < 18 yrs old: 22-83 pg/mL Methyldopa may cause false elevation of normetanephrine levels in this assay. If patient is on methyldopa, interpret results with caution. Performed By: #### P METAN ####[facility] LABCLIA [id number] [place] [address] [place] Renal function 2000 panelon 05-04-2024 Albumin [Mass/Vol] 4.0 g/dL Normal 3.9-4.9 [facility] Comment on above: Order Comment: Georgi nair Type: BLOOD SPECIMENOrdering Facility: Address: [address] [place] [address] Performed By: #### 2 4362-6 ####[facility] LABCLIA [id number] [place] [address] [place] Anion gap [Moles/Vol] 10 mmol/L Normal 8-15 [facility] Comment on above: Order Comment: Georgi nair Type: BLOOD SPECIMENOrdering Facility: Address: [address] [place] [address] Performed By: #### 2 4362-6 ####[facility] LABCLIA [id number] [place] [id number] [place] Calcium [Mass/Vol] 9.6 mg/dL Normal 8.5-10.2 [facility] Comment on above: Order Comment: Georgi nair Type: BLOOD SPECIMENOrdering Facility: Address: [address] [place] [address] Performed By: #### 2 4362-6 ####[facility] LABCLIA [id number] [place] [address] [place] Chloride [Moles/Vol] 93 mmol/L Low 98-107 [facility] Comment on above: Order Comment: Speci men Type: BLOOD SPECIMENOrdering Facility: Address: [facility] [place] [id number] Performed By: #### 2 4362-6 ####[facility] LABCLIA [id number] [place] [address] [place] CO2 [Moles/Vol] 26 mmol/L Normal 22-30 [facility] Comment on above: Order Comment: Speci men Type: BLOOD SPECIMENOrdering Facility: Address: [place] [address] Performed By: #### 2 4362-6 ####[facility] LABCLIA [id number] [place] [address] [place] Creatinine [Mass/Vol] 1.23 mg/dL High 0.73-1.22 [facility] Comment on above: Order Comment: Speci men Type: BLOOD SPECIMENOrdering Facility: Address: [facility] [place] [id number] Performed By: #### 2 4362-6 ####[facility] LABCLIA [id number] [place] [address] [place] Creatinine and Glomerular filtration rate.predicted panel (S/P/Bld) 58 mL/min/1.73m??? Low >=60 [facility] Comment on above: Order Comment: Speci men Type: BLOOD SPECIMENOrdering Facility: Address: [facility] [place] [id number] Result Comment: Nereida mated Glomerular Filtration Rate (eGFR) is calculated using the 2020 CKD-EPI creatinine equation. This equation utilizes serum creatinine, sex, and age as parameters. The creatinine assay has traceable calibration to isotope dilution-mass spectrometry. Refer to KDIGO guidelines for clinical interpretation. In patients with unstable renal function, e.g. those with acute kidney injury, the eGFR may not accurately reflect actual GFR. Performed By: #### 2 4362-6 ####[facility] LABIA [id number] [address] [address] [place] Glucose [Mass/Vol] 89 mg/dL Normal 74-99 [facility] Comment on above: Order Comment: Speci men Type: BLOOD SPECIMENOrdering Facility: [facility] [place] Address: [place] [address] Result Comment: The [place] Diabetes Association (ADA) provides guidance for cutoff values for fasting glucose and random glucose. The ADA defines fasting as no caloric intake for at least 8 hours. Fasting plasma glucose results between 100 to 125 mg/dL indicate increased risk for diabetes (prediabetes). Fasting plasma glucose results greater than or equal to 126 mg/dL meet the criteria for diagnosis of diabetes. In the absence of unequivocal hyperglycemia, results should be confirmed by repeat testing. In a patient with classic symptoms of hyperglycemia or hyperglycemic crisis, random plasma glucose results greater than or equal to 200 mg/dL meet the criteria for diagnosis of diabetes. Reference: Standards of Medical Care in Diabetes 2016, [place] Diabetes Association. Diabetes Care. 2016.39(Suppl 1). Performed By: #### 2 4362-6 ####[facility] LABIA [id number] [place] [id number] [place] Phosphate [Mass/Vol] 2.9 mg/dL Normal 2.7-4.8 [facility] Comment on above: Order Comment: Georgi nair Type: BLOOD SPECIMENOrdering Facility: [place] Address: [facility] [place] [phone] Performed By: #### 2 4362-6 ####[facility] LABIA [id number] [place] [id number] [place] Potassium [Moles/Vol] 3.3 mmol/L Low 3.7-5.1 [facility] Comment on above: Order Comment: Georgi nair Type: BLOOD SPECIMENOrdering Facility: [place] Address: [facility] [place] [phone] Performed By: #### 2 4362-6 ####[facility] LABCLIA [id number] [place] [address] [place] Sodium [Moles/Vol] 129 mmol/L Low 136-144 [facility] Comment on above: Order Comment: Speci men Type: BLOOD SPECIMENOrdering Facility: [address] Address: [address] [place] [address] Performed By: #### 2 4362-6 ####[facility] LABCLIA [id number] [place] [address] [place] Urea nitrogen [Mass/Vol] 20 mg/dL Normal 9-24 [facility] Comment on above: Order Comment: Speci men Type: BLOOD SPECIMENOrdering Facility: [facility] [place] Address: [address] [place] [address] Performed By: #### 2 4362-6 ####[facility] LABCLIA [id number] [address] [place] CNOVon 03-11-2024 CNOV Office Visit (INTMWS ) TYE VAZQUEZ ([id number]) 1940 M Date Time Provider Department 03/11/24 12:20 PM PRECIOUS TEIXEIRA INTMWS During your visit today, we recorded the following information about you: Pulse Respiration Blood pressure Weight 59/minute 22/minute 157/73 68.5 kg Precious Teixeira, 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 03/11/2024 2:07 PM Signed CC: Patient presents with: 4 week follow up - blood pressure HPI Tye Vazquez is a 84 year old male who presents today for above. HTN-Medication changes:Yes Norvasc increased to 10 mg daily Taking all medications as prescribed: Yes Side effects: No Home BP's: Yes 180's/90' Denies: headache, chest pain, palpitations, dyspnea, and peripheral edema. 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 Chronic respiratory failure with hypoxia (HCC) 01/01/2024 Clostridium difficile colitis 05/14/2017 COPD (chronic obstructive pulmonary disease) (HCC) 08/13/2023 DDD (degenerative disc disease), lumbar 11/07/2016 Diarrhea Esophageal reflux 08/29/2006 Essential hypertension, benign Inguinal hernia without mention of obstruction or gangrene, unilateral or unspecified, (not specified as recurrent) 10/11/2008 Mixed hyperlipidemia 09/02/2006 Nonspecific (abnormal) findings on radiological and other examination of abdominal area, including retroperitoneum PAD (peripheral artery disease) (HCC) Prostate cancer (HCC) 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. Traumatic subdural hematoma without loss of consciousness (HCC) 09/14/2020 Umbilical hernia without mention of obstruction or gangrene 10/11/2008 PAST SURGICAL HISTORY Procedure Laterality Date ARTHROPLASTY GLENOHUMRL JT HEMIARTHROPLASTY Right 1993 Arthroplasty, shoulder right x 2. 1991, 1993. COLONOSCOPY AND POLYPECTOMY 05/15/2010 tubular adenomas removed- [place] COLONOSCOPY DIAGNOSTIC 06/05/2022 sigmoid tubular adenoma COLONOSCOPY FLX DX W/COLLJ SPEC WHEN PFRMD 04/26/2014 Colonoscopy COLONOSCOPY FLX DX W/COLLJ SPEC WHEN PFRMD 05/07/2016 Colonoscopy EGD 05/04/2022 LAMINECTOMY W/O FFD > 2 VERT SEG LUMBAR 06/11/2018 [facility] [place] PAST SURGICAL HISTORY OF 2001 bilat cataracts, retina PAST SURGICAL HISTORY OF Left 09/2019 femoral artery PAST SURGICAL HISTORY OF 09/14/2020 CRANIOTOMY FOR EVACUATION OF SUPRATENTORIAL SUBDURAL HEMATOMA RPR 1ST INGUN HRNA AGE 5 YRS/> REDUCIBLE 11/26/2008 left RPR 1ST INGUN HRNA AGE 5 YRS/> REDUCIBLE 01/20/2018 Hernia repair, inguinal right, indirect w/medium mesh plug [facility] RPR UMBILICAL HRNA 5 YRS/> REDUCIBLE 11/26/2008 SEED IMPLANT 05/2010 for prostate cancer SIGMOIDOSCOPY FLX DX W/COLLJ SPEC BR/WA IF PFRMD 12/05/2010 ALLERGIES Patient has no known allergies. MEDICATIONS potassium chloride (K-TAB) 10 mEq tablet Take 2 tablets by mouth daily with breakfast. gabapentin (NEURONTIN) 300 mg capsule Take 1 capsule by mouth daily at bedtime for 180 days. gabapentin (NEURONTIN) 100 mg capsule Take 1 capsule by mouth every morning for 60 days. amLODIPine (NORVASC) 10 mg tablet Take 1 tablet by mouth once daily. metoprolol tartrate, short acting, (LOPRESSOR) 50 mg tablet Take 1 tablet by mouth two times a day. chlorthalidone (HYGROTON) 25 mg tablet Take 1 tablet by mouth once daily. albuterol HFA (VENTOLIN HFA) 90 mcg/actuation inhaler Inhale 2 Puffs as instructed every 4 hours as needed for wheezing/shortness of breath. umeclidinium-vilanterol (ANORO ELLIPTA) 62.5-25 mcg/actuation inhaler Inhale 1 Inhalation as instructed once daily. doxazosin (CARDURA) 4 mg tablet Take 1 tablet by mouth daily at bedtime. Added to 8 mg tablet. doxazosin (CARDURA) 8 mg tablet Take 1 tablet by mouth daily at bedtime. lisinopril (ZESTRIL) 40 mg tablet Take 1 tablet by mouth once daily. omeprazole (PRILOSEC) 20 mg capsule Take 1 capsule by mouth once daily. acetaminophen (TYLENOL) 325 mg tablet Take 2 tablets by mouth every 4 hours as needed. FAMILY HISTORY Problem Relation Age of Onset Diabetes Brother skin cancer Prostate Cancer Brother Stroke Mother Blood Disease Father Coronary Artery Disease Brother other (Other) Brother paraplegia No Ocular Disease Other Social History Tobacco Use Smoking status: Every Day Packs/day: 0.50 Years: 62.00 Additional pack years: 0.00 Total pack years: 31.00 Types: Cigarettes Start date: 02/22/1961 Smokeless tobacco: Never Tobacco comments: 5-6 per day. One ppd in past Able to quit for 5 years and 3 years Vaping Use Vaping Use: Never used Substance Use Topics Alcohol use (more content not included)... [facility] ([id number]) 1940 M Date Time Provider Department 02/17/24 TALON BOLAÑOS During your visit today, we recorded the following information about you: Katarzyna Dutton LPN 02/17/2024 8:45 AM Signed ----- Message from Talon Bolaños MD sent at 02/17/2024 8:43 AM EDT ----- Test results are okay and stable, except potassium is low. Increase potassium to 2 tablets daily. Katarzyna Dutton LPN 02/17/2024 8:46 AM Signed Left a message for pt to call the office and ask to speak to a nurse. ART Mon M Robin, RN 02/17/2024 11:00 AM Signed Pt returned call and given provider's message below with verbalized understanding. Patient agreeable. Allergies As of Date: 02/17/2024 (No Known Allergies) Date Reviewed: 02/12/2024 Reviewed by: Abdiel Layne MA - Fully Assessed Reason for Visit: Results [95] Prescriptions as of 02/17/2024 - potassium chloride (K-TAB) 10 mEq tablet Take 2 tablets by mouth daily with breakfast. - gabapentin (NEURONTIN) 300 mg capsule Take 1 capsule by mouth daily at bedtime for 180 days. - gabapentin (NEURONTIN) 100 mg capsule Take 1 capsule by mouth every morning for 60 days. - amLODIPine (NORVASC) 10 mg tablet Take 1 tablet by mouth once daily. - metoprolol tartrate, short acting, (LOPRESSOR) 50 mg tablet Take 1 tablet by mouth two times a day. - chlorthalidone (HYGROTON) 25 mg tablet Take 1 tablet by mouth once daily. - albuterol HFA (VENTOLIN HFA) 90 mcg/actuation inhaler Inhale 2 Puffs as instructed every 4 hours as needed for wheezing/shortness of breath. - umeclidinium-vilanterol (ANORO ELLIPTA) 62.5-25 mcg/actuation inhaler Inhale 1 Inhalation as instructed once daily. - doxazosin (CARDURA) 4 mg tablet Take 1 tablet by mouth daily at bedtime. Added to 8 mg tablet. - doxazosin (CARDURA) 8 mg tablet Take 1 tablet by mouth daily at bedtime. - lisinopril (ZESTRIL) 40 mg tablet Take 1 tablet by mouth once daily. - omeprazole (PRILOSEC) 20 mg capsule Take 1 capsule by mouth once daily. - acetaminophen (TYLENOL) 325 mg tablet Take 2 tablets by mouth every 4 hours as needed. Problem List As Of Date 02/17/2024 Noted Resolved Dermatophytosis of foot [B35.3] 11/27/2005 06/14/2017 Esophageal reflux [K21.9] 08/29/2006 HYPERTENSION NOS [I10] 09/02/2006 03/29/2014 Mixed hyperlipidemia [E78.2] 09/02/2006 Ganglion of tendon sheath [M67.40] 03/19/2007 11/07/2016 Unspecified disorder of prostate [N42.9] 06/21/2007 09/06/2014 Inguinal hernia without mention of obstruction *10/11/2008 11/07/2016 Umbilical hernia without mention of obstruction*10/11/2008 11/07/2016 Rotator cuff (capsule) sprain [S43.429A] 09/20/2009 11/07/2016 Malignant neoplasm of prostate (HCC) [C61] 02/07/2010 11/07/2016 Benign neoplasm of rectum and anal canal [D12.8*05/15/2010 Tobacco use disorder [F17.200] 05/23/2010 Frequency of urination [R35.0] 10/02/2010 11/07/2016 History of prostate cancer [Z85.46] Diarrhea [R19.7] 12/05/2010 09/06/2014 Inguinal neuralgia [M79.2] 03/12/2013 11/07/2016 Rotator cuff impingement syndrome of right shou*04/10/2015 11/19/2019 Medicare annual wellness visit, subsequent [Z00*04/10/2015 06/20/2018 Right-sided low back pain with right-sided scia*10/03/2015 05/15/2016 Essential hypertension [I10] 10/16/2015 DDD (degenerative disc disease), lumbar [M51.36]11/07/2016 Clostridium difficile colitis [A04.72] 05/14/2017 06/20/2018 Inguinal hernia [K40.90] 01/20/2018 06/20/2018 Traumatic complete tear of left rotator cuff [S*11/03/2018 11/19/2019 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 *07/22/2019 11/01/2022 PAD (peripheral artery disease) (HCC) [I73.9] 09/21/2019 Other insomnia [G47.09] 09/22/2019 Anemia [D64.9] 09/24/2019 11/19/2019 Acute respiratory failure with hypoxia (HCC) [J*09/24/2019 11/19/2019 Leucocytosis [D72.829] 09/25/2019 11/19/2019 SDH (subdural hematoma) [S06.5XAA] 09/14/2020 11/01/2022 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] 09/15/2020 History of Clostridium difficile colitis [Z86.1*09/15/2020 11/01/2022 Sinus bradycardia [R00.1] 09/15/2020 Peripheral neuropathy [G62.9] 09/15/2020 Acute postoperative pain [G89.18] 09/20/2020 11/08/2020 Psoriasis [L40.9] 11/28/2020 Colitis [K52.9] 03/18/2022 11/01/2022 SHASHANK (acute kidney injury) (HCC) [N17.9] 03/18/2022 11/01/2022 COPD (chronic obstructive pulmonary disease) (H*08/13/2023 Chronic respiratory failure with hypoxia (HCC) *01/01/2024 Encounter Status:Closed by Jorge L MATIAS on 02/17/24 Normal [facility] Comprehensive metabolic 2000 panelon 02-13-2024 Albumin [Mass/Vol] 4.5 g/dL Normal 3.9-4.9 [facility] Comment on above: Order Comment: Speci men Type: BLOOD SPECIMENOrdering Facility: [facility] [place] Address: [address] [place] [id number] Performed By: #### 2 4323-8, 78579-1 ####[facility] LABCLIA [id number] [place] [id number] [place] ALP [Catalytic activity/Vol] 77 U/L Normal 38-113 [facility] Comment on above: Order Comment: Speci men Type: BLOOD SPECIMENOrdering Facility: [facility] [place] Address: [address] [place], [place] [id number] Performed By: #### 2 4323-8, 48007-6 ####[facility] LABCLIA [id number] [place] [address] [place] ALT [Catalytic activity/Vol] 12 U/L Normal 10-54 [facility] Comment on above: Order Comment: Speci men Type: BLOOD SPECIMENOrdering Facility: [facility] [place] Address: [address] [place] [address] Performed By: #### 2 4323-8, 95382-5 ####[facility] LABCLIA [id number] [place] [address] [place] Anion gap [Moles/Vol] 11 mmol/L Normal 9-18 [facility] Comment on above: Order Comment: Speci men Type: BLOOD SPECIMENOrdering Facility: [facility] [place] Address: [address] [place], [place] [phone] Performed By: #### 2 4323-8, 62183-4 ####[facility] LABCLIA [id number] [place] [id number] [place] AST [Catalytic activity/Vol] 19 U/L Normal 14-40 [facility] Comment on above: Order Comment: Speci men Type: BLOOD SPECIMENOrdering Facility: [facility] [place] Address: [address] [place], [place] [address] Performed By: #### 2 4323-8, 92942-0 ####[facility] LABCLIA [id number] [place] [address] [place] Bilirubin [Mass/Vol] 0.6 mg/dL Normal 0.2-1.3 [facility] Comment on above: Order Comment: Speci men Type: BLOOD SPECIMENOrdering Facility: [facility] [place] Address: [address] [place] [address] Performed By: #### 2 4323-8, 21867-7 ####[facility] LABCLIA [id number] [place] [address] [place] Calcium [Mass/Vol] 9.6 mg/dL Normal 8.5-10.2 [facility] Comment on above: Order Comment: Speci men Type: BLOOD SPECIMENOrdering Facility: [facility] [place] Address: [address] [place] [address] Performed By: #### 2 4323-8, 80534-8 ####[facility] LABCLIA [id number] [place] [address] [place] Chloride [Moles/Vol] 97 mmol/L Normal 97-105 [facility] Comment on above: Order Comment: Speci men Type: BLOOD SPECIMENOrdering Facility: [facility] [place] Address: [address] [place] [address] Performed By: #### 2 4323-8, 64344-0 ####[facility] LABCLIA [id number] [place] [address] [place] CO2 [Moles/Vol] 27 mmol/L Normal 22-30 [facility] Comment on above: Order Comment: Speci men Type: BLOOD SPECIMENOrdering Facility: [facility] [place] Address: [address] [place] [address] Performed By: #### 2 4323-8, 60544-0 ####[facility] LABCLIA [id number] [place] [address] [place] Creatinine [Mass/Vol] 1.26 mg/dL High 0.73-1.22 [facility] Comment on above: Order Comment: Georgi nair Type: BLOOD SPECIMENOrdering Facility: [facility] [place] Address: [address] [place] [address] Performed By: #### 2 4323-8, 83543-5 ####[facility] LABCLIA [id number] [place] [address] [place] Creatinine and Glomerular filtration rate.predicted panel (S/P/Bld) 57 mL/min/1.73m??? Low >=60 [facility] Comment on above: Order Comment: Georgi nair Type: BLOOD SPECIMENOrdering Facility: [facility] [place] Address: [address] [place] [address] Result Comment: Nereida mated Glomerular Filtration Rate (eGFR) is calculated using the 2020 CKD-EPI creatinine equation. This equation utilizes serum creatinine, sex, and age as parameters. The creatinine assay has traceable calibration to isotope dilution-mass spectrometry. Refer to KDIGO guidelines for clinical interpretation. In patients with unstable renal function, e.g. those with acute kidney injury, the eGFR may not accurately reflect actual GFR. Performed By: #### 2 4323-8, 68789-9 ####[facility] LABCLIA [id number] [place] [address] [place] Glucose [Mass/Vol] 98 mg/dL Normal 74-99 [facility] Comment on above: Order Comment: Georgi nair Type: BLOOD SPECIMENOrdering Facility: [facility] [place] Address: [address] [place] [address] Result Comment: The [place] Diabetes Association (ADA) provides guidance for cutoff values for fasting glucose and random glucose. The ADA defines fasting as no caloric intake for at least 8 hours. Fasting plasma glucose results between 100 to 125 mg/dL indicate increased risk for diabetes (prediabetes). Fasting plasma glucose results greater than or equal to 126 mg/dL meet the criteria for diagnosis of diabetes. In the absence of unequivocal hyperglycemia, results should be confirmed by repeat testing. In a patient with classic symptoms of hyperglycemia or hyperglycemic crisis, random plasma glucose results greater than or equal to 200 mg/dL meet the criteria for diagnosis of diabetes. Reference: Standards of Medical Care in Diabetes 2016, [place] Diabetes Association. Diabetes Care. 2016.39(Suppl 1). Performed By: #### 2 4323-8, 55400-8 ####[facility] LABCLIA [id number] [address] [address] [place] Potassium [Moles/Vol] 3.0 mmol/L Low 3.7-5.1 [facility] Comment on above: Order Comment: Speci men Type: BLOOD SPECIMENOrdering Facility: [facility] [place] Address: [address] [place] [address] Performed By: #### 2 4323-8, 62087-4 ####[facility] LABCLIA [id number] [place] [address] [place] Protein [Mass/Vol] 7.1 g/dL Normal 6.3-8.0 [facility] Comment on above: Order Comment: Speci men Type: BLOOD SPECIMENOrdering Facility: [facility] [place] Address: [address] [place] [address] Performed By: #### 2 4323-8, 80263-6 ####[facility] LABIA [id number] [place] [address] [place] Sodium [Moles/Vol] 135 mmol/L Low 136-144 [facility] Comment on above: Order Comment: Speci men Type: BLOOD SPECIMENOrdering Facility: [facility] [place] Address: [address] [place] [address] Performed By: #### 2 4323-8, 49908-7 ####[facility] [facility] LABCLIA [id number] [place] [id number] [place] Urea nitrogen [Mass/Vol] 22 mg/dL Normal 9-24 [facility] Comment on above: Order Comment: Speci men Type: BLOOD SPECIMENOrdering Facility: [facility] [place] Address: [address] [place] [address] Performed By: #### 2 4323-8, 71143-3 ####[facility] LABCLIA [id number] [place] [address] [place] Lipid 1996 panelon 4 Cholesterol [Mass/Vol] 149 mg/dL Normal <200 [facility] Comment on above: Order Comment: Speci men Type: BLOOD SPECIMENOrdering Facility: [facility] [place] Address: [address] [place] [address] Result Comment: <200 mg/dL, Desirable 200-239 mg/dL, Borderline high >239 mg/dL, High Performed By: #### 2 4323-8, 04636-2 ####[facility] LABCLIA [id number] [address] [place] Cholesterol in HDL [Mass/Vol] 41 mg/dL Normal >39 [facility] Comment on above: Order Comment: Speci men Type: BLOOD SPECIMENOrdering Facility: [facility] [place] Address: [address] [place] [address] Result Comment: 40-5 9 mg/dL, Acceptable >59 mg/dL, High: Negative risk factor for coronary heart disease <40 mg/dL, Low: Positive risk factor for coronary heart disease Performed By: #### 2 4323-8, 12858-7 ####[facility] LABCLIA [id number] [address] [place] Cholesterol in LDL [Mass/Vol] 88 mg/dL Normal <100 [facility] Comment on above: Order Comment: Speci men Type: BLOOD SPECIMENOrdering Facility: [facility] [place] Address: [address] [place] [address] Result Comment: <100 mg/dL, Optimal 100-129 mg/dL, Near optimal/above optimal 130-159 mg/dL, Borderline high 160-189 mg/dL, High >189 mg/dL, Very high Secondary prevention optimal LDL Cholesterol levels are recommended to be < 70 mg/dL Performed By: #### 2 4323-8, 12637-8 ####[facility] LABCLIA [id number] [address] [place] Cholesterol in LDL/Cholesterol in HDL [Mass ratio] 2.15 {ratio} Normal <2.54 [facility] Comment on above: Order Comment: Georgi men Type: BLOOD SPECIMENOrdering Facility: [facility] [place] Address: [address] [place] [address] Result Comment: Refe rence: 1. National Cholesterol Education Program ATP III Guideline At-A-Glance Quick Desk Reference: National Heart, Lung, and Blood Ivins. National Institutes of Health. 2001: NIH Publication No. 01-3305. 2. An International Atherosclerosis Society position paper: global recommendations for the management of dyslipidemia: executive summary, Atherosclerosis. 2014: 232(2):410-413. Performed By: #### 2 4323-8, 54720-2 ####[facility] LABCLIA [id number] [place] [address] [place] Cholesterol in VLDL [Mass/Vol] 20 mg/dL Normal <30 [facility] Comment on above: Order Comment: Georgi nair Type: BLOOD SPECIMENOrdering Facility: [facility] [place] Address: [address] [place] [address] Performed By: #### 2 4323-8, 08087-4 ####[facility] LABCLIA [id number] [address] [place] Cholesterol non HDL [Mass/Vol] 108 mg/dL Normal <130 [facility] Comment on above: Order Comment: Kellieangela nair Type: BLOOD SPECIMENOrdering Facility: [facility] [place] Address: [facility] [place] [address] Result Comment: <130 mg/dL, Optimal 130-159 mg/dL, Near optimal/above optimal 160-189 mg/dL, Borderline high 190-219 mg/dL, High >219 mg/dL, Very high Secondary prevention optimal non HDL Cholesterol levels are recommended to be <100 mg/dL Performed By: #### 2 4323-8, 85170-5 ####[facility] LABCLIA [id number] [place] [address] [place] Cholesterol.total/ Cholesterol in HDL [Mass ratio] 3.63 {ratio} Normal <5.10 [facility] Comment on above: Order Comment: Speci men Type: BLOOD SPECIMENOrdering Facility: [facility] [place] Address: [address] [place] [address] Performed By: #### 2 4323-8, 35118-7 ####[facility] LABCLIA [id number] [place] [address] [place] FASTING TIME 12 hrs Normal [facility] Comment on above: Order Comment: Speci men Type: BLOOD SPECIMENOrdering Facility: [facility] [place] Address: [address] [place] [address] Performed By: #### 2 4323-8, 48131-6 ####[facility] LABCLIA [id number] [place] [address] [place] Triglyceride [Mass/Vol] 101 mg/dL Normal <150 [facility] Comment on above: Order Comment: Speci men Type: BLOOD SPECIMENOrdering Facility: [facility] [place] Address: [address] [place] [address] Result Comment: <150 mg/dL, Normal 150-199 mg/dL, Borderline high 200-499 mg/dL, High >499 mg/dL, Very high Performed By: #### 2 4323-8, 89982-9 ####[facility] LABCLIA [id number] [place] [address] [place] PSA SerPl-mCncon 02-13-2024 Prostate specific Ag [Mass/Vol] ng/mL Normal <2.60 [facility] Comment on above: Order Comment: Speci men Type: BLOOD SPECIMENOrdering Facility: [facility] [place] Address: [address] [place] [address] Result Comment: Tota l PSA test methodology used is the Electrochemiluminescence Immunoassay by [employer]. Total PSA values by differing methodologies cannot be interchanged. Performed By: #### 2 857-1 ####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 His visit today is for follow-up. Patient was last seen for this approximately 3 weeks ago Medication changes: Yes Norvasc 5 mg daily resumed Taking all medications as prescribed: Yes Side effects: No Home BP's: Yes home readings are in the 160's/90's Denies: headache, chest pain, palpitations, dyspnea, and peripheral edema. Last 4 Encounter BP Readings: Date: BP: 02/12/2024 158/78 01/22/2024 190/82 01/01/2024 198/77 08/13/2023 136/92 Last 3 Encounter Wt Readings: Date: Wt: 02/12/2024 68 kg (150 lb) 01/22/2024 69.9 kg (154 lb) 01/01/2024 70.7 kg (155 lb 12.8 oz) Neuropathy- takes Gabapentin 300 mg at bedtime and is able to sleep. However he is in a lot of pain during the day, hard to do ADL's because of this. He can't tolerate the 300 mg dose during the day. Wondering what else can be done. Review of Systems See HPI 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 Chronic respiratory failure with hypoxia ([facility]) 01/01/2024 Clostridium difficile colitis 05/14/2017 COPD (chronic obstructive pulmonary disease) (HCC) 08/13/2023 DDD (degenerative disc disease), lumbar 11/07/2016 Diarrhea Esophageal reflux 08/29/2006 Essential hypertension, benign Inguinal hernia without mention of obstruction or gangrene, unilateral or unspecified, (not specified as recurrent) 10/11/2008 Mixed hyperlipidemia 09/02/2006 Nonspecific (abnormal) findings on radiological and other examination of abdominal area, including retroperitoneum PAD (peripheral artery disease) ([facility]) Prostate cancer ([facility]) 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. Traumatic subdural hematoma without loss of consciousness ([facility]) 09/14/2020 Umbilical hernia without mention of obstruction or gangrene 10/11/2008 PAST SURGICAL HISTORY Procedure Laterality Date ARTHROPLASTY GLENOHUMRL JT HEMIARTHROPLASTY Right 1994 Arthroplasty, shoulder right x 2. 1991, 1993. COLONOSCOPY AND POLYPECTOMY 05/15/2010 tubular adenomas removed- [place] COLONOSCOPY DIAGNOSTIC 06/05/2022 sigmoid tubular adenoma COLONOSCOPY FLX DX W/COLLJ SPEC WHEN PFRMD 04/26/2014 Colonoscopy COLONOSCOPY FLX DX W/COLLJ SPEC WHEN PFRMD 05/07/2016 Colonoscopy EGD 05/04/2022 LAMINECTOMY W/O FFD > 2 VERT SEG LUMBAR 06/11/2018 [facility] PAST SURGICAL HISTORY OF 2001 bilat cataracts, retina PAST SURGICAL HISTORY OF Left 09/2019 femoral artery PAST SURGICAL HISTORY OF 09/14/2020 CRANIOTOMY FOR EVACUATION OF SUPRATENTORIAL SUBDURAL HEMATOMA RPR 1ST INGUN HRNA AGE 5 YRS/> REDUCIBLE 11/26/2008 left RPR 1ST INGUN HRNA AGE 5 YRS/> REDUCIBLE 01/20/2018 Hernia repair, inguinal right, indirect w/medium mesh plug [facility] RPR UMBILICAL HRNA 5 YRS/> REDUCIBLE 11/26/2008 SEED IMPLANT 05/2010 for prostate cancer SIGMOIDOSCOPY FLX DX W/COLLJ SPEC BR/WA IF PFRMD 12/05/2010 ALLERGIES Patient has no known allergies. MEDICATIONS amLODIPine (NORVASC) 5 mg tablet Take 1 tablet by mouth once daily. metoprolol tartrate, short acting, (LOPRESSOR) 50 mg tablet Take 1 tablet by mouth two times a day. chlorthalidone (HYGROTON) 25 mg tablet Take 1 tablet by mouth once daily. albuterol HFA (VENTOLIN HFA) 90 mcg/actuation inhaler Inhale 2 Puffs as instructed every 4 hours as needed for wheezing/shortness of breath. umeclidinium-vilanterol (ANORO ELLIPTA) 62.5-25 mcg/actuation inhaler Inhale 1 Inhalation as instructed once daily. doxazosin (CARDURA) 4 mg tablet Take 1 tablet by mouth daily at bedtime. Added to 8 mg tablet. doxazosin (CARDURA) 8 mg tablet Take 1 tablet by mouth daily at bedtime. lisinopril (ZESTRIL) 40 mg tablet Take 1 tablet by mouth once daily. potassium chloride (K-TAB) 10 mEq tablet Take 1 tablet by mouth daily with breakfast. gabapentin (NEURONTIN) 300 mg capsule Take 1 capsule by mouth daily at bedtime for 180 days. omeprazole (PRILOSEC) 20 mg capsule Take 1 capsule by mouth once daily. acetaminophen (TYLENOL) 325 mg tablet Take 2 tablets by mouth every 4 hours as needed. FAMILY HISTORY Problem Relation Age of Onset Diabetes Brother skin cancer Prostate Cancer Brother Stroke Mother Blood Disease Father Coronary Artery Disease Brother other (Other) Brother paraplegia No (more content not included)... Normal [facility] CNOVon 01-22-2024 [facility] Office Visit (INTMWS ) TYE VAZQUEZ ([id number]) 1940 M Date Time Provider Department 01/22/24 12:40 PM PRECIOUS TEIXEIRA INTMWS During your visit today, we recorded the following information about you: Pulse Respiration Blood pressure Weight 58/minute 20/minute 190/82 69.9 kg Precious Teixeira, 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 PITTER 01/22/2024 7:08 PM Signed CC Patient presents with: 3 week follow up: Blood pressure HPI Tye Vazquez is a 83 year old male who presents to the office for blood pressure. His visit today is for follow-up. Patient was last seen for this approximately 3 week ago. Medication changes: No Taking all medications as prescribed: Yes Side effects: Yes. He is having intermittent urinary incontinence. He is concerned it is due to his medications. Home BP's: Yes Once weekly. 187/82 was his last check. Denies: headache, chest pain, palpitations, dyspnea, peripheral edema, orthopnea, and fatigue. Last 4 Encounter BP Readings: Date: BP: 01/22/2024 194/88 01/01/2024 198/77 08/13/2023 136/92 07/19/2023 172/77[bp eliza average[ Last 3 Encounter Wt Readings: Date: Wt: 01/22/2024 69.9 kg (154 lb) 01/01/2024 70.7 kg (155 lb 12.8 oz) 09/09/2023 69.9 kg (154 lb) Exercise: denies regular aerobic exercise or is more or less sedentary occasionally exercising in the form of walking. Diet: Watch for salt, fat, cholesterol: No. He eats sweet rolls or toast for breakfast and whatever his relative makes for the other meals. Caffeine: 3 cups daily Alcohol: 4oz red wine at bedtime Smoking: Yes 1/2 pk daily Frequent NSAID use: Yes Advil 4 nights a week starting about a week ago. Decongestants: No Thyroid disorders: No Sleep disorders/snoring: Not that he is aware of. - He has concerns of intermittent urinary incontinence. He believes this is due to his medications. He denies any dysuria, hematuria or flank pain. He has a history of prostate cancer. His last PSA was 2020. He is not seeing a urologist. - He only took Cymbalta ordered 01/01/24 x 2 and then stopped. He did not like how he felt when taking it and had difficultly sleeping. - He has been taking gabapentin as prescribed but is considering stopping this as well. He is feeling tired/groggy after taking it. Review of Systems Constitutional: Negative for activity change, appetite change, chills and fever. HENT: Negative for congestion. Respiratory: Negative for chest tightness and shortness of breath. Cardiovascular: Negative for chest pain, palpitations and leg swelling. Gastrointestinal: Negative for abdominal pain, blood in stool and constipation. Endocrine: Negative for cold intolerance and heat intolerance. Genitourinary: Negative for hematuria and testicular pain. Intermittent incontinence Skin: Negative for color change. Neurological: Negative for dizziness, syncope and headaches. Psychiatric/Behavioral: Negative for suicidal ideas. 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 Chronic respiratory failure with hypoxia (HCC) 01/01/2024 Clostridium difficile colitis 05/14/2017 COPD (chronic obstructive pulmonary disease) (HCC) 08/13/2023 DDD (degenerative disc disease), lumbar 11/07/2016 Diarrhea Esophageal reflux 08/29/2006 Essential hypertension, benign Inguinal hernia without mention of obstruction or gangrene, unilateral or unspecified, (not specified as recurrent) 10/11/2008 Mixed hyperlipidemia 09/02/2006 Nonspecific (abnormal) findings on radiological and other examination of abdominal area, including retroperitoneum PAD (peripheral artery disease) ([facility]) Prostate cancer ([facility]) 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. Traumatic subdural hematoma without loss of consciousness ([facility]) 09/14/2020 Umbilical hernia without mention of obstruction or gangrene 10/11/2008 PAST SURGICAL HISTORY Procedure Laterality Date ARTHROPLASTY GLENOHUMRL JT HEMIARTHROPLASTY Right 1994 Arthroplasty, shoulder right x 2. 1991, 1993. COLONOSCOPY AND POLYPECTOMY 05/15/2010 tubular adenomas removed- [place] COLONOSCOPY DIAGNOSTIC 06/05/2022 sigmoid tubular adenoma COLONOSCOPY FLX DX W/COLLJ SPEC WHEN PFRMD 04/26/2014 Colonoscopy COLONOSCOPY FLX DX W/COLLJ SPEC WHEN PFRMD 05/07/2016 Colonoscopy EGD 05/04/2022 LAMINECTOMY W/O FFD > 2 VERT SEG LUMBAR 06/11/2018 [facility] PAST SURGICAL HISTORY OF 2001 bilat cataracts, retina PAST SURGICAL HISTORY OF Left 09/2019 femoral artery PAST SURGICAL HISTORY OF 09/14/2020 CRANIOTOMY FOR EVACUATION OF SUPRATENTORIAL SUBDURAL HEMATOMA RPR 1ST INGUN HRNA AGE 5 YRS/> REDUCIBLE 11/26/2008 left RPR 1ST INGUN HRNA AGE 5 YRS/> REDUCIBLE 01/20/2018 Hernia repair, inguinal right, indirec (more content not included)... Normal [facility] CNOVon 01-01-2024 CNOV Office Visit (INTMWS ) TYE VAZQUEZ ([id number]) 1940 M Date Time Provider Department 01/01/24 1:40 PM TALON BOLAÑOS INTMWS During your visit today, we recorded the following information about you: Temperature Pulse Blood pressure Weight 97.6 degrees 52/minute 198/77 70.7 kg Talon Bolaños MD 01/01/2024 3:31 PM Signed This note was created using [employer]. Subjective Tye Vazquez is a 83 year old male. He had no new concerns. He was dealing with more chronic back pain, and seeing a chiropractor the past 2 months. His blood pressure was not controlled. He stopped filling lisinopril since other medications were added. He also stopped amlodipine due to concerns about neuropathy. He used to be on oxygen, but returned the equipment because of inconvenience. He monitored his O2 sat at home, and it had been fine most of the time. Review of Systems Constitutional: Negative for activity change, fatigue, fever and unexpected weight change. HENT: Negative for congestion. Respiratory: Negative for cough, chest tightness, shortness of breath and wheezing. Cardiovascular: Negative for chest pain, palpitations and leg swelling. Gastrointestinal: Negative for diarrhea, nausea and vomiting. Genitourinary: Negative for difficulty urinating. Musculoskeletal: Positive for back pain. Neurological: Negative for dizziness, syncope and headaches. ACTIVE PROBLEM LIST Esophageal Reflux Mixed Hyperlipidemia Benign Neoplasm of Rectum and Anal Canal Tobacco Use Disorder History of Prostate Cancer Essential Hypertension Ddd (Degenerative Disc Disease), Lumbar Pad (Peripheral Artery Disease) (Hcc) Other Insomnia Incomplete Rbbb Sinus Bradycardia Peripheral Neuropathy Psoriasis Social History Tobacco Use Smoking status: Every Day Packs/day: 0.50 Years: 62.00 Additional pack years: 0.00 Total pack years: 31.00 Types: Cigarettes Start date: 02/22/1961 Smokeless tobacco: Never Tobacco comments: 5-6 per day. One ppd in past Able to quit for 5 years and 3 years Vaping Use Vaping Use: Never used Substance Use Topics Alcohol use: Yes Alcohol/week: 7.0 standard drinks of alcohol Types: 7 Glasses of Wine (5oz) per week Drug use: No Current Outpatient Medications Medication Sig potassium chloride (K-TAB) 10 mEq tablet Take 1 tablet by mouth daily with breakfast. gabapentin (NEURONTIN) 300 mg capsule Take 1 capsule by mouth daily at bedtime for 180 days. umeclidinium-vilanterol (ANORO ELLIPTA) 62.5-25 mcg/actuation inhaler Inhale 1 Inhalation as instructed once daily. chlorthalidone (HYGROTON) 25 mg tablet Take 1 tablet by mouth once daily. albuterol HFA (VENTOLIN HFA) 90 mcg/actuation inhaler Inhale 2 Puffs as instructed every 4 hours as needed for wheezing/shortness of breath. doxazosin (CARDURA) 8 mg tablet Take 1 tablet by mouth daily at bedtime. doxazosin (CARDURA) 4 mg tablet Take 1 tablet by mouth daily at bedtime. Added to 8 mg tablet. omeprazole (PRILOSEC) 20 mg capsule Take 1 capsule by mouth once daily. amLODIPine (NORVASC) 5 mg tablet Take 1 tablet by mouth once daily. lisinopril (ZESTRIL) 40 mg tablet Take 1 tablet by mouth once daily. DULoxetine (CYMBALTA) 20 mg capsule Take 2 capsules by mouth once daily. metoprolol tartrate, short acting, (LOPRESSOR) 50 mg tablet Take 1 tablet by mouth twice daily. acetaminophen (TYLENOL) 325 mg tablet Take 2 tablets by mouth every 4 hours as needed. No current facility-administered medications for this visit. Objective Blood Pressure 198/77 (BP Site: Left Arm, BP Position: Sitting, BP Cuff Size: Large Adult) Pulse (Abnormal) 52 Temperature 36.4 ?C (97.6 ?F) (Temporal) Weight 70.7 kg (155 lb 12.8 oz) Oxygen Saturation (Abnormal) 84% Body Mass Index 26.28 kg/m? Physical Exam Constitutional: General: He is not in acute distress. Appearance: He is not ill-appearing or diaphoretic. HENT: Head: Normocephalic. Eyes: Extraocular Movements: Extraocular movements intact. Conjunctiva/sclera: Conjunctivae normal. Cardiovascular: Rate and Rhythm: Regular rhythm. Bradycardia present. Heart sounds: No murmur heard. No gallop. Pulmonary: Effort: No respiratory distress. Breath sounds: No stridor. Rhonchi present. No wheezing or rales. Abdominal: General: There is no distension. Musculoskeletal: Right lower leg: No edema. Left lower leg: No edema. Neurological: General: No focal deficit present. Mental Status: He is alert. Assessment and Plan 1. Chronic respiratory failure with hypoxia (HCC) - ICD9: 518.83, 799.02, ICD10: J96.11 (primary diagnosis) He declined to have this set up. He was instructed to call if he changed his mind. Risk of MD and CVA were discussed. - OXYGEN FOR HOME USE-- refused. 2. Idiopathic peripheral neuropathy - ICD9: 356.9, ICD10: G60.9 Dose increa (more content not included)... [facility] ([id number]) 1940 M Date Time Provider Department 09/17/23 LAVERNE JUAREZ [facility] During your visit today, we recorded the following information about you: Trena Ma RN 09/17/2023 3:53 PM Signed Patient called and states I am not going to use the oxygen machine and I am not paying $30 a month to have it here. Patient states that he had seven nightmares last night and my sleep is to important. Patient states that [facility] Cam[facility] will not take it back until they get the order from the doctor. Patient encouraged to try another night of wearing it and refuses. EMILIANO Paez Kathleen LPN 09/18/2023 8:34 AM Signed Order for DC/refusal sent to [facility]. Esperanza Tuttle Elemary CORDOVA 09/18/2023 10:46 AM Signed Brenna with [facility] called. State they received a fax but it is blurry and asking if it can be refaxed to: [phone]. Ele Clay ART Allergies As of Date: 09/17/2023 (No Known Allergies) Date Reviewed: 08/13/2023 Reviewed by: Laverne Juarez MD - Fully Assessed Reason for Visit: Oxygen [3494] Primary Visit Diagnosis:Centrilobular emphysema (HCC) [J43.2] Order(s):DISCONTINUE HOME OXYGEN [[id number]] Order #: [id number] Prescriptions as of 09/18/2023 - gabapentin (NEURONTIN) 300 mg capsule Take 1 capsule by mouth daily at bedtime for 180 days. - umeclidinium-vilanterol (ANORO ELLIPTA) 62.5-25 mcg/actuation inhaler Inhale 1 Inhalation as instructed once daily. - chlorthalidone (HYGROTON) 25 mg tablet Take 1 tablet by mouth once daily. - albuterol HFA (VENTOLIN HFA) 90 mcg/actuation inhaler Inhale 2 Puffs as instructed every 4 hours as needed for wheezing/shortness of breath. - doxazosin (CARDURA) 8 mg tablet Take 1 tablet by mouth daily at bedtime. - doxazosin (CARDURA) 4 mg tablet Take 1 tablet by mouth daily at bedtime. Added to 8 mg tablet. - omeprazole (PRILOSEC) 20 mg capsule Take 1 capsule by mouth once daily. - potassium chloride (K-TAB) 10 mEq tablet Take 1 tablet by mouth daily with breakfast. - amLODIPine (NORVASC) 5 mg tablet Take 1 tablet by mouth once daily. - lisinopril (ZESTRIL) 40 mg tablet Take 1 tablet by mouth once daily. - DULoxetine (CYMBALTA) 20 mg capsule Take 2 capsules by mouth once daily. - metoprolol tartrate, short acting, (LOPRESSOR) 50 mg tablet Take 1 tablet by mouth twice daily. - acetaminophen (TYLENOL) 325 mg tablet Take 2 tablets by mouth every 4 hours as needed. Problem List As Of Date 09/17/2023 Noted Resolved Dermatophytosis of foot [B35.3] 11/27/2005 06/14/2017 Esophageal reflux [K21.9] 08/29/2006 HYPERTENSION NOS [I10] 09/02/2006 03/29/2014 Mixed hyperlipidemia [E78.2] 09/02/2006 Ganglion of tendon sheath [M67.40] 03/19/2007 11/07/2016 Unspecified disorder of prostate [N42.9] 06/21/2007 09/06/2014 Inguinal hernia without mention of obstruction *10/11/2008 11/07/2016 Umbilical hernia without mention of obstruction*10/11/2008 11/07/2016 Rotator cuff (capsule) sprain [S43.429A] 09/20/2009 11/07/2016 Malignant neoplasm of prostate (HCC) [C61] 02/07/2010 11/07/2016 Benign neoplasm of rectum and anal canal [D12.8*05/15/2010 Tobacco use disorder [F17.200] 05/23/2010 Frequency of urination [R35.0] 10/02/2010 11/07/2016 History of prostate cancer [Z85.46] Diarrhea [R19.7] 12/05/2010 09/06/2014 Inguinal neuralgia [M79.2] 03/12/2013 11/07/2016 Rotator cuff impingement syndrome of right shou*04/10/2015 11/19/2019 Medicare annual wellness visit, subsequent [Z00*04/10/2015 06/20/2018 Right-sided low back pain with right-sided scia*10/03/2015 05/15/2016 Essential hypertension [I10] 10/16/2015 DDD (degenerative disc disease), lumbar [M51.36]11/07/2016 Clostridium difficile colitis [A04.72] 05/14/2017 06/20/2018 Inguinal hernia [K40.90] 01/20/2018 06/20/2018 Traumatic complete tear of left rotator cuff [S*11/03/2018 11/19/2019 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 *07/22/2019 11/01/2022 PAD (peripheral artery disease) (HCC) [I73.9] 09/21/2019 Other insomnia [G47.09] 09/22/2019 Anemia [D64.9] 09/24/2019 11/19/2019 Acute respiratory failure with hypoxia (HCC) [J*09/24/2019 11/19/2019 Leucocytosis [D72.829] 09/25/2019 11/19/2019 SDH (subdural hematoma) [S06.5XAA] 09/14/2020 11/01/2022 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] 09/15/2020 History of Clostridium difficile colitis [Z86.1*09/15/2020 11/01/2022 Sinus bradycardia [R00.1] 09/15/2020 Peripheral neuropathy [G62.9] 09/15/2020 Acute postoperative pain [G89.18] 09/20/2020 11/08/2020 Psoriasis [L40.9] 11/28/2020 Colitis [K52.9] 03/18/2022 11/01/2022 SHASHANK (acute kidney injury) (HCC) [N17.9] 03/18/2022 11/01/2022 Encounter Status:Closed by LAVERNE JUAREZ on 09/17/23 [facility] Joan 09-04-2023 CNPN Telephone (PULMWS) TYE VAZQUEZ ([id number]) 1940 M Date Time Provider Department 09/04/23 LAVERNE JUAREZ During your visit today, we recorded the following information about you: Hortencia Raymundo Ma 09/04/2023 3:24 PM Signed Ardienne from [facility] and states she needs Columba to electronically return platform for patient's oxygen PantEsperanza andrews LPN 09/09/2023 11:41 AM Signed Patient has appt with SOCIAL SERVICE DIRECTOR 09/09 for O2 recert. Esperanza Darnell LPN Allergies As of Date: 09/04/2023 (No Known Allergies) Date Reviewed: 08/13/2023 Reviewed by: Laverne Juarez MD - Fully Assessed Prescriptions as of 09/09/2023 - umeclidinium-vilanterol (ANORO ELLIPTA) 62.5-25 mcg/actuation inhaler Inhale 1 Inhalation as instructed once daily. - chlorthalidone (HYGROTON) 25 mg tablet Take 1 tablet by mouth once daily. - albuterol HFA (VENTOLIN HFA) 90 mcg/actuation inhaler Inhale 2 Puffs as instructed every 4 hours as needed for wheezing/shortness of breath. - doxazosin (CARDURA) 8 mg tablet Take 1 tablet by mouth daily at bedtime. - doxazosin (CARDURA) 4 mg tablet Take 1 tablet by mouth daily at bedtime. Added to 8 mg tablet. - omeprazole (PRILOSEC) 20 mg capsule Take 1 capsule by mouth once daily. - potassium chloride (K-TAB) 10 mEq tablet Take 1 tablet by mouth daily with breakfast. - amLODIPine (NORVASC) 5 mg tablet Take 1 tablet by mouth once daily. - lisinopril (ZESTRIL) 40 mg tablet Take 1 tablet by mouth once daily. - gabapentin (NEURONTIN) 300 mg capsule Take 1 capsule by mouth daily at bedtime for 180 days. - DULoxetine (CYMBALTA) 20 mg capsule Take 2 capsules by mouth once daily. - metoprolol tartrate, short acting, (LOPRESSOR) 50 mg tablet Take 1 tablet by mouth twice daily. - acetaminophen (TYLENOL) 325 mg tablet Take 2 tablets by mouth every 4 hours as needed. Problem List As Of Date 09/04/2023 Noted Resolved Dermatophytosis of foot [B35.3] 11/27/2005 06/14/2017 Esophageal reflux [K21.9] 08/29/2006 HYPERTENSION NOS [I10] 09/02/2006 03/29/2014 Mixed hyperlipidemia [E78.2] 09/02/2006 Ganglion of tendon sheath [M67.40] 03/19/2007 11/07/2016 Unspecified disorder of prostate [N42.9] 06/21/2007 09/06/2014 Inguinal hernia without mention of obstruction *10/11/2008 11/07/2016 Umbilical hernia without mention of obstruction*10/11/2008 11/07/2016 Rotator cuff (capsule) sprain [S43.429A] 09/20/2009 11/07/2016 Malignant neoplasm of prostate (HCC) [C61] 02/07/2010 11/07/2016 Benign neoplasm of rectum and anal canal [D12.8*05/15/2010 Tobacco use disorder [F17.200] 05/23/2010 Frequency of urination [R35.0] 10/02/2010 11/07/2016 History of prostate cancer [Z85.46] Diarrhea [R19.7] 12/05/2010 09/06/2014 Inguinal neuralgia [M79.2] 03/12/2013 11/07/2016 Rotator cuff impingement syndrome of right shou*04/10/2015 11/19/2019 Medicare annual wellness visit, subsequent [Z00*04/10/2015 06/20/2018 Right-sided low back pain with right-sided scia*10/03/2015 05/15/2016 Essential hypertension [I10] 10/16/2015 DDD (degenerative disc disease), lumbar [M51.36]11/07/2016 Clostridium difficile colitis [A04.72] 05/14/2017 06/20/2018 Inguinal hernia [K40.90] 01/20/2018 06/20/2018 Traumatic complete tear of left rotator cuff [S*11/03/2018 11/19/2019 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 *07/22/2019 11/01/2022 PAD (peripheral artery disease) (HCC) [I73.9] 09/21/2019 Other insomnia [G47.09] 09/22/2019 Anemia [D64.9] 09/24/2019 11/19/2019 Acute respiratory failure with hypoxia (HCC) [J*09/24/2019 11/19/2019 Leucocytosis [D72.829] 09/25/2019 11/19/2019 SDH (subdural hematoma) [S06.5XAA] 09/14/2020 11/01/2022 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] 09/15/2020 History of Clostridium difficile colitis [Z86.1*09/15/2020 11/01/2022 Sinus bradycardia [R00.1] 09/15/2020 Peripheral neuropathy [G62.9] 09/15/2020 Acute postoperative pain [G89.18] 09/20/2020 11/08/2020 Psoriasis [L40.9] 11/28/2020 Colitis [K52.9] 03/18/2022 11/01/2022 SHASHANK (acute kidney injury) (HCC) [N17.9] 03/18/2022 11/01/2022 Encounter Status:Closed by ESPERANZA DARNELL LPN on 09/09/23 [facility] 08-28-2023 CNPN Telephone (PULMWS) TYE VAZQUEZ ([id number]) 1940 M Date Time Provider Department 08/28/23 LAVERNE JUAREZ PULCOLIN During your visit today, we recorded the following information about you: Ele Tuttle LPN 08/28/2023 11:47 AM Signed Adrienne with [employer] called. Verified name and date of of patient. Adrienne is asking if nocturnal oxygen can be set up while patient waits for walk testing to be done 09/09/2023. Please review and advise. Esperanza Craig LPN, LPN 08/28/2023 12:12 PM Signed Adrienne aware patient will be walked to check for portability. If portables are needed we can send order after his walk test. Esperanza Darnell LPN Allergies As of Date: 08/28/2023 (No Known Allergies) Date Reviewed: 08/13/2023 Reviewed by: Laverne Juarez MD - Fully Assessed Reason for Visit: Orders [681] Bean Snapper - Other [3602] Prescriptions as of 08/28/2023 - umeclidinium-vilanterol (ANORO ELLIPTA) 62.5-25 mcg/actuation inhaler Inhale 1 Inhalation as instructed once daily. - chlorthalidone (HYGROTON) 25 mg tablet Take 1 tablet by mouth once daily. - albuterol HFA (VENTOLIN HFA) 90 mcg/actuation inhaler Inhale 2 Puffs as instructed every 4 hours as needed for wheezing/shortness of breath. - doxazosin (CARDURA) 8 mg tablet Take 1 tablet by mouth daily at bedtime. - doxazosin (CARDURA) 4 mg tablet Take 1 tablet by mouth daily at bedtime. Added to 8 mg tablet. - omeprazole (PRILOSEC) 20 mg capsule Take 1 capsule by mouth once daily. - potassium chloride (K-TAB) 10 mEq tablet Take 1 tablet by mouth daily with breakfast. - amLODIPine (NORVASC) 5 mg tablet Take 1 tablet by mouth once daily. - lisinopril (ZESTRIL) 40 mg tablet Take 1 tablet by mouth once daily. - gabapentin (NEURONTIN) 300 mg capsule Take 1 capsule by mouth daily at bedtime for 180 days. - DULoxetine (CYMBALTA) 20 mg capsule Take 2 capsules by mouth once daily. - metoprolol tartrate, short acting, (LOPRESSOR) 50 mg tablet Take 1 tablet by mouth twice daily. - acetaminophen (TYLENOL) 325 mg tablet Take 2 tablets by mouth every 4 hours as needed. Problem List As Of Date 08/28/2023 Noted Resolved Dermatophytosis of foot [B35.3] 11/27/2005 06/14/2017 Esophageal reflux [K21.9] 08/29/2006 HYPERTENSION NOS [I10] 09/02/2006 03/29/2014 Mixed hyperlipidemia [E78.2] 09/02/2006 Ganglion of tendon sheath [M67.40] 03/19/2007 11/07/2016 Unspecified disorder of prostate [N42.9] 06/21/2007 09/06/2014 Inguinal hernia without mention of obstruction *10/11/2008 11/07/2016 Umbilical hernia without mention of obstruction*10/11/2008 11/07/2016 Rotator cuff (capsule) sprain [S43.429A] 09/20/2009 11/07/2016 Malignant neoplasm of prostate (HCC) [C61] 02/07/2010 11/07/2016 Benign neoplasm of rectum and anal canal [D12.8*05/15/2010 Tobacco use disorder [F17.200] 05/23/2010 Frequency of urination [R35.0] 10/02/2010 11/07/2016 History of prostate cancer [Z85.46] Diarrhea [R19.7] 12/05/2010 09/06/2014 Inguinal neuralgia [M79.2] 03/12/2013 11/07/2016 Rotator cuff impingement syndrome of right shou*04/10/2015 11/19/2019 Medicare annual wellness visit, subsequent [Z00*04/10/2015 06/20/2018 Right-sided low back pain with right-sided scia*10/03/2015 05/15/2016 Essential hypertension [I10] 10/16/2015 DDD (degenerative disc disease), lumbar [M51.36]11/07/2016 Clostridium difficile colitis [A04.72] 05/14/2017 06/20/2018 Inguinal hernia [K40.90] 01/20/2018 06/20/2018 Traumatic complete tear of left rotator cuff [S*11/03/2018 11/19/2019 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 *07/22/2019 11/01/2022 PAD (peripheral artery disease) (HCC) [I73.9] 09/21/2019 Other insomnia [G47.09] 09/22/2019 Anemia [D64.9] 09/24/2019 11/19/2019 Acute respiratory failure with hypoxia (HCC) [J*09/24/2019 11/19/2019 Leucocytosis [D72.829] 09/25/2019 11/19/2019 SDH (subdural hematoma) [S06.5XAA] 09/14/2020 11/01/2022 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] 09/15/2020 History of Clostridium difficile colitis [Z86.1*09/15/2020 11/01/2022 Sinus bradycardia [R00.1] 09/15/2020 Peripheral neuropathy [G62.9] 09/15/2020 Acute postoperative pain [G89.18] 09/20/2020 11/08/2020 Psoriasis [L40.9] 11/28/2020 Colitis [K52.9] 03/18/2022 11/01/2022 SHASHANK (acute kidney injury) (HCC) [N17.9] 03/18/2022 11/01/2022 Encounter Status:Closed by ESPERANZA DARNELL LPN on 08/28/23 [facility] CNOVon 08-13-2023 CNOV Office Visit (PULMWS ) TYE VAZQUEZ ([id number]) 1940 M Date Time Provider Department 08/13/23 1:30 PM LAVERNE JUAREZ PULMWS During your visit today, we recorded the following information about you: Blood pressure Weight 136/92 68.9 kg Laverne Juarez MD 08/13/2023 3:25 PM Signed . Respiratory Ivins Note Patient name: Tey Vazquez PCP: Talon Bolaños MD Referring Physician: Precious Almeida CNP Consultation requested by Precious Almeida for an opinion regarding SOB. My final recommendations will be communicated back to the requesting physician by way of shared Medical record or letter to requesting physician via US mail. CC: SOB HPI: Tye Vazquez 83 year old male current smoker with PMH significant for HTN, GERD, HLD, PAD, prostate cancer s/p radiation, being referred for evaluation of SOB. Patient's history dates back approximately 1 year ago when he first noted dyspnea on exertion, especially climbing stairs. He denies dyspnea with his usual activities or walking at a regular pace. He has cough with clear mucus production that occurs throughout the day but is more prominent in the evening. At times he may hear himself wheeze in the evening but once he is able to expectorate phlegm, the wheezing resolves. He denies any chest pain or pressure. He denies history of recurrent pneumonia or bronchitis. He has never been hospitalized for lung disease. He was recently prescribed albuterol inhaler which he uses twice a day. He has not noted much improvement in his dyspnea or mucus production. Patient is motivated to quit smoking. He was able to quit for 5 years at one point in time as well as 3 years in the past. DATA: PFT 07/2023: Review of PFT shows mild obstruction, improvement in small airways with bronchodilator, hyperinflation and airtrapping and moderate reduction in diffusion. Pattern consistent with emphysema Labs: Most recent CBC normal Imaging / Diagnostic Studies: DATE OF EXAM: Jul 19 2023 12:23PM WOX [id number] - XR CHEST 2V FRONTAL/LAT / CLINICAL HISTORY: Short of breath on exertion Tobacco use disorder MQ: XC2_6 EXAM DATE/TIME: 07/19/2023 12:23 PM COMPARISON: 10/11/2021. RESULT: Lines, tubes, and devices: None. Lungs and pleura: There is hyperinflation of the lungs suggestive of pulmonary emphysema. There are vague focal fibrotic changes in both lung bases. There are vague 5 mm nodular densities in the lower chest bilaterally suggestive of the nipple shadows. No consolidation. No lung mass. No pleural effusion. No pneumothorax. Cardiomediastinal silhouette: There is tortuosity and atherosclerosis of the descending thoracic aorta. Bones and soft tissues: Unremarkable. IMPRESSION: Stable exam with chronic changes as described above and no definite acute radiographic abnormality. I personally reviewed the images which shows emphysema and chronic changes 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 Clostridium difficile colitis 05/14/2017 DDD (degenerative disc disease), lumbar 11/07/2016 Diarrhea Esophageal reflux 08/29/2006 Essential hypertension, benign Inguinal hernia without mention of obstruction or gangrene, unilateral or unspecified, (not specified as recurrent) 10/11/2008 Mixed hyperlipidemia 09/02/2006 Nonspecific (abnormal) findings on radiological and other examination of abdominal area, including retroperitoneum PAD (peripheral artery disease) (HCC) Prostate cancer (HCC) 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. Traumatic subdural hematoma without loss of consciousness (HCC) 09/14/2020 Umbilical hernia without mention of obstruction or gangrene 10/11/2008 ALLERGIES No Known Allergies chlorthalidone (HYGROTON) 25 mg tablet Take 1 tablet by mouth once daily. albuterol HFA (VENTOLIN HFA) 90 mcg/actuation inhaler Inhale 2 Puffs as instructed every 4 hours as needed for wheezing/shortness of breath. fluconazole (DIFLUCAN) 150 mg tablet Take 1 tablet by mouth one time a week. doxazosin (CARDURA) 8 mg tablet Take 1 tablet by mouth daily at bedtime. doxazosin (CARDURA) 4 mg tablet Take 1 tablet by mouth daily at bedtime. Added to 8 mg tablet. omeprazole (PRILOSEC) 20 mg capsule Take 1 capsule by mouth once daily. potassium chloride (K-TAB) 10 mEq tablet Take 1 tablet by mouth daily with breakfast. amLODIPine (NORVASC) 5 mg tablet Take 1 tablet by mouth once daily. lisinopril (ZESTRIL) 40 mg tablet Take 1 tablet by mouth once daily. gabapentin (NEURONTIN) 300 mg capsule Take 1 capsule by mouth daily at bedtime for 180 days. DULoxetine (CYMBALTA) 20 mg capsule Take 2 capsules by mouth once daily. metoprolol tartr (more content not included)... [facility] 08-06-2023 YOANNA Telephone (INTMWS) TYE VAZQUEZ ([id number]) 1940 M Date Time Provider Department 08/06/23 PRECIOUS ALMEIDA INTBROOKE During your visit today, we recorded the following information about you: Precious Almeida APRN.CNP 08/06/2023 7:47 AM Signed Please let the patient know findings on the lung function test were consistent with COPD. Recommend referral to pulmonology for further evaluation SACHI Acevedo Amanda, RN 08/06/2023 9:32 AM Signed Pt called and is notified of providers results and instructions. Pt voices understanding. Transferred to scheduled to set up appt with Pulmonology. Shannan Carter RN Allergies As of Date: 08/06/2023 (No Known Allergies) Date Reviewed: 07/19/2023 Reviewed by: Precious Almeida APRN.MARIAH - Fully Assessed Reason for Visit: Results [95] Primary Visit Diagnosis:Short of breath on exertion [R06.02] Other Visit Diagnoses:Tobacco use disorder [F17.200] Abnormal lung function test [R94.2] Order(s):CONSULT TO PULMONARY MEDICINE [[id number]] Order #: [id number]: 1 Prescriptions as of 08/06/2023 - chlorthalidone (HYGROTON) 25 mg tablet Take 1 tablet by mouth once daily. - albuterol HFA (VENTOLIN HFA) 90 mcg/actuation inhaler Inhale 2 Puffs as instructed every 4 hours as needed for wheezing/shortness of breath. - fluconazole (DIFLUCAN) 150 mg tablet Take 1 tablet by mouth one time a week. - doxazosin (CARDURA) 8 mg tablet Take 1 tablet by mouth daily at bedtime. - doxazosin (CARDURA) 4 mg tablet Take 1 tablet by mouth daily at bedtime. Added to 8 mg tablet. - omeprazole (PRILOSEC) 20 mg capsule Take 1 capsule by mouth once daily. - potassium chloride (K-TAB) 10 mEq tablet Take 1 tablet by mouth daily with breakfast. - amLODIPine (NORVASC) 5 mg tablet Take 1 tablet by mouth once daily. - lisinopril (ZESTRIL) 40 mg tablet Take 1 tablet by mouth once daily. - gabapentin (NEURONTIN) 300 mg capsule Take 1 capsule by mouth daily at bedtime for 180 days. - DULoxetine (CYMBALTA) 20 mg capsule Take 2 capsules by mouth once daily. - metoprolol tartrate, short acting, (LOPRESSOR) 50 mg tablet Take 1 tablet by mouth twice daily. - acetaminophen (TYLENOL) 325 mg tablet Take 2 tablets by mouth every 4 hours as needed. Problem List As Of Date 08/06/2023 Noted Resolved Dermatophytosis of foot [B35.3] 11/27/2005 06/14/2017 Esophageal reflux [K21.9] 08/29/2006 HYPERTENSION NOS [I10] 09/02/2006 03/29/2014 Mixed hyperlipidemia [E78.2] 09/02/2006 Ganglion of tendon sheath [M67.40] 03/19/2007 11/07/2016 Unspecified disorder of prostate [N42.9] 06/21/2007 09/06/2014 Inguinal hernia without mention of obstruction *10/11/2008 11/07/2016 Umbilical hernia without mention of obstruction*10/11/2008 11/07/2016 Rotator cuff (capsule) sprain [S43.429A] 09/20/2009 11/07/2016 Malignant neoplasm of prostate (HCC) [C61] 02/07/2010 11/07/2016 Benign neoplasm of rectum and anal canal [D12.8*05/15/2010 Tobacco use disorder [F17.200] 05/23/2010 Frequency of urination [R35.0] 10/02/2010 11/07/2016 History of prostate cancer [Z85.46] Diarrhea [R19.7] 12/05/2010 09/06/2014 Inguinal neuralgia [M79.2] 03/12/2013 11/07/2016 Rotator cuff impingement syndrome of right shou*04/10/2015 11/19/2019 Medicare annual wellness visit, subsequent [Z00*04/10/2015 06/20/2018 Right-sided low back pain with right-sided scia*10/03/2015 05/15/2016 Essential hypertension [I10] 10/16/2015 DDD (degenerative disc disease), lumbar [M51.36]11/07/2016 Clostridium difficile colitis [A04.72] 05/14/2017 06/20/2018 Inguinal hernia [K40.90] 01/20/2018 06/20/2018 Traumatic complete tear of left rotator cuff [S*11/03/2018 11/19/2019 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 *07/22/2019 11/01/2022 PAD (peripheral artery disease) (HCC) [I73.9] 09/21/2019 Other insomnia [G47.09] 09/22/2019 Anemia [D64.9] 09/24/2019 11/19/2019 Acute respiratory failure with hypoxia (HCC) [J*09/24/2019 11/19/2019 Leucocytosis [D72.829] 09/25/2019 11/19/2019 SDH (subdural hematoma) [S06.5XAA] 09/14/2020 11/01/2022 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] 09/15/2020 History of Clostridium difficile colitis [Z86.1*09/15/2020 11/01/2022 Sinus bradycardia [R00.1] 09/15/2020 Peripheral neuropathy [G62.9] 09/15/2020 Acute postoperative pain [G89.18] 09/20/2020 11/08/2020 Psoriasis [L40.9] 11/28/2020 Colitis [K52.9] 03/18/2022 11/01/2022 SHASHANK (acute kidney injury) (HCC) [N17.9] 03/18/2022 11/01/2022 Encounter Status:Closed by SHANNAN CARTER on 08/06/23 Normal [facility] No Panel Informationon 08-02 [facility] SPIROMETRY - BASELINE AND PO ST DILATORon 08-02-2023 DLCO (ml/min/mmHg) 8.88 ml/min/mmHg [facility] DLCO/VA (ml/min/mmHg/L) 1.42 ml/min/mmHg/L [facility] ERV BOX (L) 1.68 L [facility] FXX85-37% POST (L/S) 0.79 L/S [facility] UPQ40-94% PRE (L/S) 0.41 L/S [facility] FEV1 PRE (L) 1.78 L [facility] FEV1/FVC POST (%) 43 % [facility] FEV1/FVC PRE (%) 44 % [facility] FEV1_POST (L) 1.99 L [facility] FRC Box (L) 5.19 L [facility] FVC POST (L) 4.62 L [facility] FVC PRE (L) 4.06 L [facility] IC BOX (L) 2.51 L [facility] PEF POST (L/S) 3.99 L/S [facility] PEF PRE (L/S) 3.87 L/S [facility] RV Box (L) 3.62 L [facility] RV/TLC Box (%) 46 % [facility] TLC Box (L) 7.83 L [facility] VA (L) 6.27 L [facility] VC (L) BOX 4.21 L [facility] XR Chest PA and Lateralon IMPRESSION: Stable exam with chronic changes as described above and no definite acute radiographic abnormality. Infectious Waste Technician: ERAN Transcribe Date/Time: Jul 20 2023 8:14P Dictated by : ZAEN BERRY MD This examination was interpreted and the report reviewed and electronically signed by: ZANE BERRY MD on Jul 20 2023 8:16PM [facility] [email or web address]] DIVISION OF RADIOLOGY * * *Final Report* * * DATE OF EXAM: Jul 19 2023 12:23PM WOX [id number] - XR CHEST 2V FRONTAL/LAT / PROCEDURE REASON: multiple diagnoses * * * * Physician Interpretation * * * * EXAMINATION: CHEST RADIOGRAPH (2 VIEW FRONTAL & LATERAL) CLINICAL HISTORY: Short of breath on exertion Tobacco use disorder MQ: XC2_6 EXAM DATE/TIME: 07/19/2023 12:23 PM COMPARISON: 10/11/2021. RESULT: Lines, tubes, and devices: None. Lungs and pleura: There is hyperinflation of the lungs suggestive of pulmonary emphysema. There are vague focal fibrotic changes in both lung bases. There are vague 5 mm nodular densities in the lower chest bilaterally suggestive of the nipple shadows. No consolidation. No lung mass. No pleural effusion. No pneumothorax. Cardiomediastinal silhouette: There is tortuosity and atherosclerosis of the descending thoracic aorta. Bones and soft tissues: Unremarkable. DIVISION OF RADIOLOGY Provider, [facility] - 07/20/2023 * * *Final Report* * * DATE OF EXAM: Jul 19 2023 12:23PM WOX [id number] - XR CHEST 2V FRONTAL/LAT / PROCEDURE REASON: multiple diagnoses * * * * Physician Interpretation * * * * EXAMINATION: CHEST RADIOGRAPH (2 VIEW FRONTAL & LATERAL) CLINICAL HISTORY: Short of breath on exertion Tobacco use disorder MQ: XC2_6 EXAM DATE/TIME: 07/19/2023 12:23 PM COMPARISON: 10/11/2021. RESULT: Lines, tubes, and devices: None. Lungs and pleura: There is hyperinflation of the lungs suggestive of pulmonary emphysema. There are vague focal fibrotic changes in both lung bases. There are vague 5 mm nodular densities in the lower chest bilaterally suggestive of the nipple shadows. No consolidation. No lung mass. No pleural effusion. No pneumothorax. Cardiomediastinal silhouette: There is tortuosity and atherosclerosis of the descending thoracic aorta. Bones and soft tissues: Unremarkable. IMPRESSION IMPRESSION: Stable exam with chronic changes as described above and no definite acute radiographic abnormality. Infectious Waste Technician: ERAN Transcribe Date/Time: Jul 20 2023 8:14P Dictated by : ZANE BERRY MD This examination was interpreted and the report reviewed and electronically signed by: ZANE BERRY MD on Jul 20 2023 8:16PM EST [facility] XR Chest PA and LateralOrder ed By: [facility] Provider on 07-20-2023 [facility] XR Chest PA and Lateralon Radiology Study observation (narrative) [facility] Basic metabolic 2000 panelon 10-16-2022 Anion gap [Moles/Vol] 9 mmol/L 9 - 18 mmol/L [facility] Calcium [Mass/Vol] 9.3 mg/dL 8.5 - 10. 2 mg/dL [facility] Chloride [Moles/Vol] 101 mmol/L 97 - 105 mmol/L [facility] CO2 [Moles/Vol] 27 mmol/L 22 - 30 mmol/L [facility] Creatinine [Mass/Vol] 0.98 mg/dL 0.73 - 1.22 mg/dL [facility] Estimated Glomerular Filtration Rate 77 mL/min/1.73m >=60 mL/min/1.73m [facility] Glucose [Mass/Vol] 117 mg/dL High 74 - 99 mg/dL [facility] Potassium [Moles/Vol] 3.4 mmol/L Low 3.7 - 5.1 mmol/L [facility] Sodium [Moles/Vol] 137 mmol/L 136 - 144 mmol/L [facility] Urea nitrogen [Mass/Vol] 16 mg/dL 9 - 24 mg/dL [facility] Lipid 1995 panelon Cholesterol [Mass/Vol] 146 mg/dL <200 mg/dL [facility] Cholesterol in HDL [Mass/Vol] 40 mg/dL >39 mg/dL [facility] Cholesterol in LDL [Mass/Vol] 81 mg/dL <100 mg/dL [facility] Cholesterol in LDL/Cholesterol in HDL [Mass ratio] 2.03 {ratio} <2.54 [facility] Cholesterol in VLDL [Mass/Vol] 25 mg/dL <30 mg/dL [facility] Cholesterol non HDL [Mass/Vol] 106 mg/dL <130 mg/dL [facility] Cholesterol.total/ Cholesterol in HDL [Mass ratio] 3.65 {ratio} <5.10 [facility] Fasting Time 10 hrs [facility] Triglyceride [Mass/Vol] 125 mg/dL <150 mg/dL [facility] US LEG VEIN DVT [facility] VAS LABo n 10-16-2022 [facility] Influenza virus A and B RNA and SARS-CoV-2 (COVID-19) N gene panel TRACY+probe (Resp)on 10-06-2022 FLUAV RNA TRACY+probe Ql (Unsp spec) Positive Abnormal Negative for Influenza A by RT-PCR [facility] FLUBV RNA TRACY+probe Ql (Unsp spec) Negative Negative for Influenza B by RT-PCR [facility] SARS-CoV-2 (COVID-19) RNA TRACY+probe Ql (Resp) SARS-CoV-2 (Agent of COVID-19) Not Detected by RT-PCR or equivalent method. Not Detected [facility] XR Hand - left PA and Latera l and Obliqueon 01-04-2022 IMPRESSION: Calcium pyrophosphate deposition disease. Infectious Waste Technician: ERAN Transcribe Date/Time: Jan 04 2022 10:27A Dictated by : YANELIS SUMMERS MD This examination was interpreted and the report reviewed and electronically signed by: YANELIS SUMMERS MD on Jan 04 2022 10:30AM [facility] [[email or web address]] DIVISION OF RADIOLOGY * * *Final Report* * * DATE OF EXAM: Jan 04 2022 10:22AM WOX [id number] - XR HAND 3V PA/LAT/OBL LT / PROCEDURE REASON: Localized swelling on left hand * * * * Physician Interpretation * * * * HISTORY: Localized swelling on left hand woke up Saturday left hand was swollen and became worse yesterday, entire hand and finger swollen NOT ABLE TO REMOVE RING DUE TO SWELLING TECHNIQUE: 3 views COMPARISON: None RESULT: Mild osteoarthritic spurring about the DIP joints of the fingers. No erosions. No significant osteopenia. Joint spaces appear intact. Calcification of intercarpal ligaments is noted. DIVISION OF RADIOLOGY Provider, [facility] - 01/04/2022 * * *Final Report* * * DATE OF EXAM: Jan 04 2022 10:22AM WOX 5345 - XR HAND 3V PA/LAT/OBL LT / PROCEDURE REASON: Localized swelling on left hand * * * * Physician Interpretation * * * * HISTORY: Localized swelling on left hand woke up Saturday left hand was swollen and became worse yesterday, entire hand and finger swollen NOT ABLE TO REMOVE RING DUE TO SWELLING TECHNIQUE: 3 views COMPARISON: None RESULT: Mild osteoarthritic spurring about the DIP joints of the fingers. No erosions. No significant osteopenia. Joint spaces appear intact. Calcification of intercarpal ligaments is noted. IMPRESSION IMPRESSION: Calcium pyrophosphate deposition disease. Infectious Waste Technician: ERAN Transcribe Date/Time: Jan 04 2022 10:27A Dictated by : YANELIS SUMMERS MD This examination was interpreted and the report reviewed and electronically signed by: YANELIS SUMMERS MD on Jan 04 2022 10:30AM EST [facility] Radiology Study observation (narrative) [facility] XR Hand - left PA and Latera l and ObliqueOrdered By: [facility] Provider on 01-04-2022 [facility] XR Chest PA and Lateralon IMPRESSION: Overall findings unchanged. A round opacity overlying the left lower lung may represent nipple shadow. Consider follow-up with nipple labeling. Infectious Waste Technician: ERAN Transcribe Date/Time: Oct 11 2021 11:15A Dictated by : CODEY ALVARADO MD This examination was interpreted and the report reviewed and electronically signed by: CODEY ALVARADO MD on Oct 11 2021 11:18AM [facility] [[email or web address]] DIVISION OF RADIOLOGY * * *Final Report* * * DATE OF EXAM: Oct 11 2021 11:03AM WOX [id number] - XR CHEST 2V FRONTAL/LAT / PROCEDURE REASON: Cough * * * * Physician Interpretation * * * * EXAMINATION: CHEST RADIOGRAPH (2 VIEW FRONTAL & LATERAL) CLINICAL HISTORY: Cough MQ: XC2_6 EXAM DATE/TIME: 10/11/2021 11:03 AM COMPARISON: Chest x-ray on 02/20/2021. RESULT: Lines, tubes, and devices: None. Lungs and pleura: A round opacity overlying the left lower lung, unchanged. Stable focal calcification overlying the right lower lung. No definite consolidations seen. No masses. Mild bibasilar atelectasis is present. No pleural effusions or pneumothorax. Cardiomediastinal silhouette: The cardiac silhouette has been stable, with tortuosity and atherosclerotic calcifications of the thoracic aorta. Bones and soft tissues: There are degenerative changes in the spine. DIVISION OF RADIOLOGY Provider, [facility] - 10/11/2021 * * *Final Report* * * DATE OF EXAM: Oct 11 2021 11:03AM WOX [id number] - XR CHEST 2V FRONTAL/LAT / PROCEDURE REASON: Cough * * * * Physician Interpretation * * * * EXAMINATION: CHEST RADIOGRAPH (2 VIEW FRONTAL & LATERAL) CLINICAL HISTORY: Cough MQ: XC2_6 EXAM DATE/TIME: 10/11/2021 11:03 AM COMPARISON: Chest x-ray on 02/20/2021. RESULT: Lines, tubes, and devices: None. Lungs and pleura: A round opacity overlying the left lower lung, unchanged. Stable focal calcification overlying the right lower lung. No definite consolidations seen. No masses. Mild bibasilar atelectasis is present. No pleural effusions or pneumothorax. Cardiomediastinal silhouette: The cardiac silhouette has been stable, with tortuosity and atherosclerotic calcifications of the thoracic aorta. Bones and soft tissues: There are degenerative changes in the spine. IMPRESSION IMPRESSION: Overall findings unchanged. A round opacity overlying the left lower lung may represent nipple shadow. Consider follow-up with nipple labeling. Infectious Waste Technician: ERAN Transcribe Date/Time: Oct 11 2021 11:15A Dictated by : CODEY ALVARADO MD This examination was interpreted and the report reviewed and electronically signed by: CODEY ALVARADO MD on Oct 11 2021 11:18AM [facility] Radiology Study observation (narrative) [facility] XR Chest PA and LateralOrder ed By: [facility] Provider on 10-11-2021 [facility] XR Chest PA and Lateralon IMPRESSION: Minimal atelectasis or early infiltrate at the right base. Infectious Waste Technician: [facility] Transcribe Date/Time: Feb 20 2021 1:54P Dictated by : ELVIRA LAURA MD This examination was interpreted and the report reviewed and electronically signed by: ELVIRA LAURA MD on Feb 20 2021 1:57PM [facility] [[email or web address]] DIVISION OF RADIOLOGY * * *Final Report* * * DATE OF EXAM: Feb 20 2021 1:51PM WOX 5291 - XR CHEST 2V FRONTAL/LAT / PROCEDURE REASON: Cough * * * * Physician Interpretation * * * * EXAMINATION: CHEST RADIOGRAPH (2 VIEW FRONTAL & LATERAL) CLINICAL HISTORY: Cough MQ: XC2_6 EXAM DATE/TIME: 02/20/2021 1:51 PM COMPARISON: 09/14/2020 RESULT: Lines, tubes, and devices: None. Lungs and pleura: No consolidation. No lung mass. No pleural effusion. No pneumothorax. Minimal atelectasis or early infiltrate at the right base. Cardiomediastinal silhouette: Normal cardiomediastinal silhouette. Bones and soft tissues: Moderate degenerative change and osteophytosis throughout the dorsal spine DIVISION OF RADIOLOGY Provider, [facility] - 02/20/2021 * * *Final Report* * * DATE OF EXAM: Feb 20 2021 1:51PM WOX 5291 - XR CHEST 2V FRONTAL/LAT / PROCEDURE REASON: Cough * * * * Physician Interpretation * * * * EXAMINATION: CHEST RADIOGRAPH (2 VIEW FRONTAL & LATERAL) CLINICAL HISTORY: Cough MQ: XC2_6 EXAM DATE/TIME: 02/20/2021 1:51 PM COMPARISON: 09/14/2020 RESULT: Lines, tubes, and devices: None. Lungs and pleura: No consolidation. No lung mass. No pleural effusion. No pneumothorax. Minimal atelectasis or early infiltrate at the right base. Cardiomediastinal silhouette: Normal cardiomediastinal silhouette. Bones and soft tissues: Moderate degenerative change and osteophytosis throughout the dorsal spine IMPRESSION IMPRESSION: Minimal atelectasis or early infiltrate at the right base. Infectious Waste Technician: ERAN Transcribe Date/Time: Feb 20 2021 1:54P Dictated by : ELVIRA LAURA MD This examination was interpreted and the report reviewed and electronically signed by: ELVIRA LAURA MD on Feb 20 2021 1:57PM [facility] Radiology Study observation (narrative) [facility] XR Chest PA and LateralOrder ed By: [facility] Provider on 02-20-2021 [facility] OBSOLETEon 02-20-2020 OBSOLETE Refill (AGCARDPOB) TYE VAZQUEZ ([id number]) 1940 M Date Time Provider Department 02/20/20 LYNNETTE BEEBE AGCSHARONPOSvitlana During your visit today, we recorded the following information about you: Zoey Adhikari LPN 02/22/2020 9:47 AM Signed Patient's pharmacy requesting new refill. Refused Prescriptions Disp Refills cyclobenzaprine (FLEXERIL) 10 mg tablet [Pharmacy Med Name: Cyclobenzaprine HCl 10 MG Oral Tablet] 30 tablet 0 Sig: Take 1 tablet by mouth at bedtime as needed for Muscle Spasm. SAY: No Zoey Adhikari LPN Allergies As of Date: 02/20/2020 (No Known Allergies) Date Reviewed: 12/09/2019 Reviewed by: Aron Mena - Fully Assessed Reason for Visit: Refill Request [94] Visit Diagnosis:DDD (degenerative disc disease), lumbar [M51.36] Prescriptions as of 02/20/2020 Sig: CILOSTAZOL 50 [...] * Take 81 mg by mouth once dana* TRIAMCINOLONE ACETONIDE 0.5 %* Apply 1 application to affect* Problem List As Of Date 02/20/2020 Noted Resolved Dermatophytosis of foot [B35.3] 11/27/2005 06/14/2017 Esophageal reflux [K21.9] 08/29/2006 More... HYPERTENSION NOS [I10] 09/02/2006 03/29/2014 More... Mixed hyperlipidemia [E78.2] 09/02/2006 More... Ganglion of tendon sheath [M67.40] 03/19/2007 11/07/2016 Unspecified disorder of prostate [N42.9] 06/21/2007 09/06/2014 Inguinal hernia without mention of obstruction *10/11/2008 11/07/2016 Umbilical hernia without mention of obstruction*10/11/2008 11/07/2016 Rotator cuff (capsule) sprain [S43.429A] 09/20/2009 11/07/2016 Malignant neoplasm of prostate (HCC) [C61] 02/07/2010 11/07/2016 More... Benign neoplasm of rectum and anal canal [D12.8*05/15/2010 More... Tobacco use disorder [F17.200] 05/23/2010 More... Frequency of urination [R35.0] 10/02/2010 11/07/2016 Prostate cancer [C61] More... Diarrhea [R19.7] 12/05/2010 09/06/2014 Inguinal neuralgia [M79.2] 03/12/2013 11/07/2016 Rotator cuff impingement syndrome of right shou*04/10/2015 11/19/2019 Medicare annual wellness visit, subsequent [Z00*04/10/2015 06/20/2018 Right-sided low back pain with right-sided scia*10/03/2015 05/15/2016 Essential hypertension [I10] 10/16/2015 More... DDD (degenerative disc disease), lumbar [M51.36]11/07/2016 More... Clostridium difficile colitis [A04.72] 05/14/2017 06/20/2018 Inguinal hernia [K40.90] 01/20/2018 06/20/2018 More... Traumatic complete tear of left rotator cuff [S*11/03/2018 11/19/2019 More... 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 PAD (peripheral artery disease) (HCC) [I73.9] 09/21/2019 Other insomnia [G47.09] 09/22/2019 More... Anemia [D64.9] 09/24/2019 11/19/2019 More... Acute respiratory failure with hypoxia (HCC) [J*09/24/2019 11/19/2019 More... Leucocytosis [D72.829] 09/25/2019 11/19/2019 More... Encounter Status:Closed by ZOEY ADHIKARI on 02/22/20 [facility] OBSOLETEon 01-28-2020 OBSOLETE Refill (AGCARDPOB) TYE VAZQUEZ ([id number]) 1940 M Date Time Provider Department 01/28/20 LYNNETTE BEEBE AGCARDPOB During your visit today, we recorded the following information about you: Lula Herrera 01/29/2020 8:35 AM Signed Patient's request for medication is as follows: Refused Prescriptions Disp Refills cyclobenzaprine (FLEXERIL) 10 mg tablet [Pharmacy Med Name: Cyclobenzaprine HCl 10 MG Oral Tablet] 30 [...] [94] Visit Diagnosis:DDD (degenerative disc disease), lumbar [M51.36] Prescriptions as of 01/28/2020 Sig: CILOSTAZOL 50 [...] * Take 81 mg by mouth once dana* TRIAMCINOLONE ACETONIDE 0.5 %* Apply 1 application to affect* Problem List As Of Date 01/28/2020 Noted Resolved Dermatophytosis of foot [B35.3] 11/27/2005 06/14/2017 Esophageal reflux [K21.9] 08/29/2006 More... HYPERTENSION NOS [I10] 09/02/2006 03/29/2014 More... Mixed hyperlipidemia [E78.2] 09/02/2006 More... Ganglion of tendon sheath [M67.40] 03/19/2007 11/07/2016 Unspecified disorder of prostate [N42.9] 06/21/2007 09/06/2014 Inguinal hernia without mention of obstruction *10/11/2008 11/07/2016 Umbilical hernia without mention of obstruction*10/11/2008 11/07/2016 Rotator cuff (capsule) sprain [S43.429A] 09/20/2009 11/07/2016 Malignant neoplasm of prostate (HCC) [C61] 02/07/2010 11/07/2016 More... Benign neoplasm of rectum and anal canal [D12.8*05/15/2010 More... Tobacco use disorder [F17.200] 05/23/2010 More... Frequency of urination [R35.0] 10/02/2010 11/07/2016 Prostate cancer [C61] More... Diarrhea [R19.7] 12/05/2010 09/06/2014 Inguinal neuralgia [M79.2] 03/12/2013 11/07/2016 Rotator cuff impingement syndrome of right shou*04/10/2015 11/19/2019 Medicare annual wellness visit, subsequent [Z00*04/10/2015 06/20/2018 Right-sided low back pain with right-sided scia*10/03/2015 05/15/2016 Essential hypertension [I10] 10/16/2015 More... DDD (degenerative disc disease), lumbar [M51.36]11/07/2016 More... Clostridium difficile colitis [A04.72] 05/14/2017 06/20/2018 Inguinal hernia [K40.90] 01/20/2018 06/20/2018 More... Traumatic complete tear of left rotator cuff [S*11/03/2018 11/19/2019 More... 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 PAD (peripheral artery disease) (HCC) [I73.9] 09/21/2019 Other insomnia [G47.09] 09/22/2019 More... Anemia [D64.9] 09/24/2019 11/19/2019 More... Acute respiratory failure with hypoxia (HCC) [J*09/24/2019 11/19/2019 More... Leucocytosis [D72.829] 09/25/2019 11/19/2019 More... Encounter Status:Closed by LULA HERRERA on 01/29/20 [facility] CNOVon 08-25-2019 CNOV Office Visit (AGCARD POB) TYE VAZQUEZ ([id number]) 1940 M Date Time Provider Department 08/25/19 1:20 PM LYNNETTE BEEBE AGCARDPOB During your visit today, we recorded the following information about you: Pulse Blood pressure Weight Height 100/minute 140/82 71.7 kg 1.702 m Arlet Min 08/25/2019 1:23 PM Signed Mr. Vazquez is here as new patient. No cardiac complaints or symptoms. Arlet Traore MD 08/25/2019 2:43 PM Addendum Cardiovascular Medicine Out-Patient Note Chief Complaint Patient presents with: Cardiology Follow Up : Referral from Dr. Mena for cardiac clearance History of Present Illness: Tye Vazquez is a 79 year old with peripheral arterial disease (left more than right; proximal left SFA), nicotine dependence, hypertension, dyslipidemia, GERD and neuropathy who is here today to establish cardiac vascular care. He is scheduled to undergo left angiography/peripheral arterial intervention and possible open bypass by Dr. Mena. Terms of his cardiac complaints, he is asymptomatic and doing well. His only limitation to activities as claudication/lower extreme a numbness. He is able to rake leaves and carry out his daily chores without any difficulties or developing any symptoms. Unfortunately he continues to smoke cigarettes on a daily basis. He had a stressful year where his this past summer. He previously attempted to quit smoking several times. He specifically denies chest pain, dyspnea, dyspnea on exertion, palpitations, lightheadedness, PND, orthopnea or syncope. PAST MEDICAL HISTORY Diagnosis Date - Benign neoplasm of colon - Benign neoplasm of rectum and anal canal - Clostridium difficile colitis 05/14/2017 - DDD (degenerative disc disease), lumbar 11/07/2016 - Diarrhea - Esophageal reflux 08/29/2006 - Essential hypertension, benign - Inguinal hernia without mention of obstruction or gangrene, unilateral or unspecified, (not specified as recurrent) 10/11/2008 - Mixed hyperlipidemia 09/02/2006 - Nonspecific (abnormal) findings on radiological and other examination of abdominal area, including retroperitoneum - PAD (peripheral artery disease) (HCC) - Prostate cancer (HCC) - Rotator cuff impingement syndrome of right shoulder 04/10/2015 - Snoring - Traumatic complete tear of left rotator cuff 11/03/2018 [facility] - Umbilical hernia without mention of obstruction or gangrene 10/11/2008 PAST SURGICAL HISTORY Procedure Laterality Date - COLONOSCOP W/ OR W/O [facility] SPEC 04/26/2014 Colonoscopy - COLONOSCOP W/ OR W/O [facility] SPEC 05/07/16 Colonoscopy - COLONOSCOPY AND POLYPECTOMY 05/15/10 tubular adenomas removed- [place] - LAMINECTOMY,>2 SGMT,LUMBAR 06/11/2018 [facility] - PAST SURGICAL HISTORY OF 2001 bilat cataracts, retina - RECONSTRUCT PROX HUMERAL IMPLANT Right 1993 Arthroplasty, shoulder right x 2. 1991, 1993. - REPAIR ING HERNIA,5+Y/O,REDUCIBL 11/26/2008 left - REPAIR ING HERNIA,5+Y/O,REDUCIBL 01/20/2018 Hernia repair, inguinal right, indirect w/medium mesh plug [facility] - REPAIR UMBILICAL ALBERT,5+Y/O,REDUC 11/26/2008 - SEED [...] mouth once daily. 90 tablet 3 - omeprazole (PRILOSEC) 20 mg capsule Take 1 capsule by mouth once daily. 90 capsule 1 - cyclobenzaprine (FLEXERIL) 10 mg tablet Take 1 tablet by mouth at bedtime as needed for Muscle Spasm. 30 tablet 5 - cilostazol (PLETAL) 50 mg tablet Take 1 tablet by mouth twice daily. 60 tablet 0 - amLODIPine (NORVASC) 10 mg tablet Take 1 tablet by mouth once daily. 90 tablet 1 - gabapentin (NEURONTIN) 300 mg capsule 1 capsule in the morning. Continue 2 capsules at bedtime. 270 capsule 3 - lisinopril (ZESTRIL, PRINIVIL) 20 mg tablet Take 1 tablet by mouth every evening. 90 tablet 1 - lisinopril-hydrochlorothiazi de (PRINZIDE,ZESTORETIC) 20-12.5 mg per tablet [...] acetonide (KENALOG) 0.5 % cream Apply 1 application to affected area twice daily. For rash/itching. Apply sparingly. Avoid face/skin fold. 30 g 0 - aspirin, enteric coated (ASPIRIN, ENTERIC COATED) 81 mg EC tablet Take 1 tablet by mouth once daily. 0 No current facility-administered medications for this visit. Review of Systems Constitutional: Positive for malaise/fatigue. Negative for chills, diaphoresis, fever and weight loss. HENT: Negative for congestion, ear pain, hearing loss, nosebleeds and tinnitus. Eyes: Negative for blurred vision, double vision and photophobia. Respiratory: Negative for cough, hemoptysis, sputum production, shortness of breath and wheezing. Cardiovascular: Positive for claudication. Negative for chest pain, palpitations, orthopnea, leg swelling and PND. Gastrointestinal: Negative for abdominal pain, blood in stool, constipation, diarrhea, heartburn, melena, nausea and vomiting. Genitourinary: Negative for dysuria, frequency, hematuria and urgency. Musculoskeletal: Negative for myalgias. Skin: Negative for itching and rash. Neurological: Positive for sensory change. Negative for dizziness, focal weakness, seizures and headaches. Endo/Heme/Allergies: Bruises/bleeds easily. Psychiatric/Behavioral: Negative for depression and memory loss. The patient does not have insomnia. Physical Examination: Vitals:BP 140/82 Pulse 100 Ht 5' 7 (1.70m) Wt 158 lb (71.7kg) SpO2 92% BMI 24.74 kg/(m2). BP w/Orthostatic Vitals Date and Time Orthostatic BP Orthostatic Pulse BP Pulse BP Position BP Site BP Cuff Size 08/25/19 1312 -- -- 140/82 100 Sitting Right Arm Regular Adult Last 2 Encounter Wt Readings: Date: Wt: 08/25/2019 158 lb (71.7 kg) 08/19/2019 160 lb 3.2 oz (72.7 kg) Physical Exam Constitutional: He is oriented to person, place, and time and well-developed, well-nourished, and in no distress. HENT: Head: Normocephalic. Eyes: Conjunctivae and EOM are normal. Neck: No JVD present. No thyromegaly present. Cardiovascular: Normal rate, regular rhythm, S1 normal, S2 normal and normal heart sounds. PMI is not displaced. Exam reveals no gallop and no friction rub. No murmur heard. Pulses: Radial pulses are 1+ on the right side and 1+ on the left side. Dorsalis pedis pulses are 2+ on the right side and 1+ on the left side. Posterior tibial pulses are 2+ on the right side and 1+ on the left side. Pulmonary/Chest: Effort normal and breath sounds normal. No respiratory distress. He has no wheezes. He has no rales. He exhibits no tenderness. Abdominal: Soft. Bowel sounds are normal. He exhibits no distension. There is no tenderness. There is no rebound and no guarding. Musculoskeletal: Normal range of motion. General: No tenderness, deformity or edema. Neurological: He is alert and oriented to person, place, and time. No cranial nerve deficit. Gait normal. Skin: Skin is warm and dry. No rash noted. No erythema. No pallor. Psychiatric: Mood, memory, affect and judgment normal. [...] High: Negative risk factor for coronary heart disease <40 mg/dL, Low: Positive risk factor for coronary heart disease LDL Cholesterol Date Value Ref Range Status [...] Cardiac Testing Electrocardiogram 08/25/2019: Normal sinus rhythm (PA intervals 160 ms; QRS 104 ms; QTC is 431 ms). RSR' in V1. Echocardiogram 08/17/2019: - The left ventricle is normal in size. There is mild upper septal left ventricular hypertrophy. Left ventricular systolic function is normal. EF = 58 ? 5% (2D biplane) Grade I left ventricular diastolic dysfunction. Wall motion abnormalities as stated above. - The right ventricle is?normal in size. Right ventricular systolic function is normal. - There are no significant valvular abnormalities. SPECT perfusion 08/19/2019: ?1. SPECT Perfusion Study: Normal. ?2. There is no scintigraphic evidence for inducible ischemia. ?3. No evidence of scarred myocardium. ?4. Functional capacity N/A (pharmacological). ?5. Left ventricle is normal in size. The left ventricle systolic function is normal. ?6. Right ventricle is normal in size. ?7. This is a low risk scan. LVEF % 66 Assessment and Plan: 79 year old with peripheral arterial disease who is scheduled for peripheral artery intervention. Assessment -Patient is asymptomatic from a cardiac perspective. -His LVEF was normal on echocardiogram and pharmacological MPI -His pharmacological MPI did not show any significant areas of myocardial ischemia/infarction. -He does not have any significant valve disease -His blood pressure is somewhat elevated today. He notes that his blood pressures usually controlled and he is somewhat anxious this morning. Therapy --The importance of smoking cessation was discussed. He is not ready to quit smoking at [...] vascular surgery --Continue amlodipine, lisinopril, hydrochlorothiazide and metoprolol. Monitor blood pressure and considering adjusting antihypertensives. Perioperative risk assessment --His risk for perioperative cardiac events are low (approximately at 1%) --No further cardiac testing --Proceed with peripheral arterial intervention/surgery understanding benefits and risks Follow up in 6 months time or with any new symptoms/concerns. Electronically signed by Lynnette Traore MD on August 25, 2019, 1:35 PM Lynnette Traore MD 08/25/2019 1:59 PM Signed What is peripheral artery disease? ? Peripheral artery disease (PAD) is a condition that can cause leg pain that gets worse with activity. Muscle pain that gets worse with activity and better with rest is called claudication. PAD affects the blood vessels (called arteries) that bring blood to the legs. PAD can also cause wounds to heal more slowly than usual. This article is only about the leg pain related to PAD. Normally, blood flows easily through arteries to all parts of the body. But sometimes, fatty clumps called plaques build up inside the conte of arteries. Plaques can cause arteries to become narrow or blocked. This prevents blood from flowing normally. When muscles do not get enough blood, symptoms can occur. Some people have a greater chance of getting PAD, such as those who: ?Smoke ?Have diabetes ?Have high cholesterol ?Have high blood pressure What are the symptoms of PAD? ? PAD often causes pain in the back of the lower leg. The pain usually gets worse with walking or other exercise, and gets better with rest. PAD can also cause pain in the buttocks, thighs, or sometimes in the feet. People who have leg pain can have other symptoms, too, such as: ?Trouble walking up stairs ?Trouble getting an erection (in men) or trouble with sexual arousal (in women) Symptoms of claudication can be mild or severe, depending on: ?Which arteries are affected ?How narrow the arteries are ?How much activity a person does Is there a test for PAD? ? Yes. Your doctor or nurse can do different tests to find out if you have PAD, and to check how severe it is. He or she might: ?Take the blood pressure in your arm and lower leg (just above the ankle) at rest and right after exercise, and compare them ?Take the blood pressure in other places in your leg (like the thigh) ?Order a blood vessel imaging test such as an ultrasound, which can show pictures of your leg arteries How can I help treat my PAD? ? To help treat your PAD and prevent it from getting worse, you can: ?Stop smoking ?Get your diabetes, high blood pressure, and high cholesterol under control (if you have these conditions) ?Walking ? Doctors recommend that most people with PAD walk every day. Ask your doctor or nurse how best to begin a walking program. What other treatments might I have? ? Along with a walking program and getting medical conditions under control, some people are also treated with medicines. The medicines used to treat PAD can reduce symptoms, increase blood flow to the legs, and help people walk farther without pain. Most doctors ask their patients to try a medicine called cilostazol (brand name: Pletal). But people who have certain heart problems cannot take cilostazol and must take a different medicine. If you still have severe symptoms after trying medicines, your doctor will talk with you about the possibility of having surgery or a procedure to increase blood flow to your legs and feet. Your treatment options might include: ?Angioplasty or stenting ? During angioplasty or stenting, the doctor sends a thin tube with a balloon at the end of it to the part of the artery that is blocked. Then the doctor inflates the balloon to open the blockage. Often the doctor props open the artery using a tiny mesh tube called a stent, which stays in the body. ?Bypass surgery ? During bypass surgery, the doctor removes a piece of blood vessel (vein) from another part of the body. Then he or she reattaches that piece of blood vessel [...] I know about the different procedures? ? Angioplasty and stenting are used to [...] might recommend a procedure for you, depending on your symptoms, age, and medical problems. But many people can choose which procedure to have. If your doctor offers you a choice, ask: ?What are the benefits of each procedure for me? ?What are the downsides of each procedure for me? ?What happens if I do not have any procedure? Referring Provider: SELF [[id number]] Allergies As of Date: 08/25/2019 (No Known Allergies) Date Reviewed: 08/25/2019 Reviewed by: Arlet (Art) Pako - Fully Assessed Reason for Visit: Cardiology Follow Up [1732] Cmt: Referral from Dr. 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) [I70.212] Other Visit Diagnoses:PAD (peripheral artery disease) (HCC) [I73.9] DDD (degenerative disc disease), lumbar [M51.36] Order(s):ECG B/O W INTERP (MED OFFICE) [ECG06] Order #: [id number] cilostazol (PLETAL) 50 mg tabletTake 1 tablet by mouth twice daily.Disp: 180 tabletRfl: 2 cyclobenzaprine (FLEXERIL) 10 mg tabletTake 1 tablet by mouth at bedtime as needed for Muscle Spasm.Disp: [...] ACETONIDE 0.5 %* Apply 1 application to affect* Problem List As Of Date 08/25/2019 Noted Resolved Dermatophytosis of foot [B35.3] 11/27/2005 06/14/2017 ESOPHAGEAL REFLUX [K21.9] 08/29/2006 HYPERTENSION NOS [I10] 09/02/2006 03/29/2014 More... MIXED HYPERLIPIDEMIA [E78.2] 09/02/2006 More... Ganglion of tendon sheath [M67.40] 03/19/2007 11/07/2016 Unspecified disorder of prostate [N42.9] 06/21/2007 09/06/2014 Inguinal hernia without mention of obstruction *10/11/2008 11/07/2016 Umbilical hernia without mention of obstruction*10/11/2008 11/07/2016 Rotator cuff (capsule) sprain [S43.429A] 09/20/2009 11/07/2016 Malignant neoplasm of prostate (HCC) [C61] 02/07/2010 11/07/2016 More... Benign neoplasm of rectum and anal canal [D12.8*05/15/2010 More... Tobacco use disorder [F17.200] 05/23/2010 More... Frequency of urination [R35.0] 10/02/2010 11/07/2016 Prostate cancer [C61] Diarrhea [R19.7] 12/05/2010 09/06/2014 Inguinal neuralgia [M79.2] 03/12/2013 11/07/2016 Rotator cuff impingement syndrome of right shou*04/10/2015 Medicare annual wellness visit, subsequent [Z00*04/10/2015 06/20/2018 Right-sided low back pain with right-sided scia*10/03/2015 05/15/2016 Essential hypertension [I10] 10/16/2015 DDD (degenerative disc disease), lumbar [M51.36]11/07/2016 Clostridium difficile colitis [A04.72] 05/14/2017 06/20/2018 Inguinal hernia [K40.90] 01/20/2018 06/20/2018 More... Traumatic complete tear of left rotator cuff [S*11/03/2018 More... 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 *07/22/2019 Other instructions from your clinician: What is peripheral artery disease? ? Peripheral artery disease (PAD) is a condition that can cause leg pain that gets worse with activity. Muscle pain that gets worse with activity and better with rest is called claudication. PAD affects the blood vessels (called arteries) that bring blood to the legs. PAD can also cause wounds to heal more slowly than usual. This article is only about the leg pain related to PAD. Normally, blood flows easily through arteries to all parts of the body. But sometimes, fatty clumps called plaques build up inside the conte of arteries. Plaques can cause arteries to become narrow or blocked. This prevents blood from flowing normally. When muscles do not get enough blood, symptoms can occur. Some people have a greater chance of getting PAD, such as those who: ?Smoke ?Have diabetes ?Have high cholesterol ?Have high blood pressure What are the symptoms of PAD? ? PAD often causes pain in the back of the lower leg. The pain usually gets worse with walking or other exercise, and gets better with rest. PAD can also cause pain in the buttocks, thighs, or sometimes in the feet. People who have leg pain can have other symptoms, too, such as: ?Trouble walking up stairs ?Trouble getting an erection (in men) or trouble with sexual arousal (in women) Symptoms of claudication can be mild or severe, depending on: ?Which arteries are affected ?How narrow the arteries are ?How much activity a person does Is there a test for PAD? ? Yes. Your doctor or nurse can do different tests to find out if you have PAD, and to check how severe it is. He or she might: ?Take the blood pressure in your arm and lower leg (just above the ankle) at rest and right after exercise, and compare them ?Take the blood pressure in other places in your leg (like the thigh) ?Order a blood vessel imaging test such as an ultrasound, which can show pictures of your leg arteries How can I help treat my PAD? ? To help treat your PAD and prevent it from getting worse, you can: ?Stop smoking ?Get your diabetes, high blood pressure, and high cholesterol under control (if you have these conditions) ?Walking ? Doctors recommend that most people with PAD walk every day. Ask your doctor or nurse how best to begin a walking program. What other treatments might I have? ? Along with a walking program and getting medical conditions under control, some people are also treated with medicines. The medicines used to treat PAD can reduce symptoms, increase blood flow to the legs, and help people walk farther without pain. Most doctors ask their patients to try a medicine called cilostazol (brand name: Pletal). But people who have certain heart problems cannot take cilostazol and must take a different medicine. If you still have severe symptoms after trying medicines, your doctor will talk with you about the possibility of having surgery or a procedure to increase blood flow to your legs and feet. Your treatment options might include: ?Angioplasty or stenting ? During angioplasty or stenting, the doctor sends a thin tube with a balloon at the end of it to the part of the artery that is blocked. Then the doctor inflates the balloon to open the blockage. Often the doctor props open the artery using a tiny mesh tube called a stent, which stays in the body. ?Bypass surgery ? During bypass surgery, the doctor removes a piece of blood vessel (vein) from another part of the body. Then he or she reattaches that piece of blood vessel [...] I know about the different procedures? ? Angioplasty and stenting are used to [...] might recommend a procedure for you, depending on your symptoms, age, and medical problems. But many people can choose which procedure to have. If your doctor offers you a choice, ask: ?What are the benefits of each procedure for me? ?What are the downsides of each procedure for me? ?What happens if I do not have any procedure? Visit Notes: >> Arlet Galeano Aug 25, 2019 1:18 PM Status: Signed Mr. Vazquez is here as new [...] 50 mg tablet 60 t* 0 07/01/2019 08/25/2019 Route: ORAL Sig: Take 1 tablet by mouth twice daily. Disc: Reason for discontinue is not on file. cyclobenzaprine (FLEXERIL) 10 mg tab* 30 t* 5 07/23/2019 08/25/2019 Route: ORAL Sig: Take 1 tablet by mouth at bedtime as needed for Muscle Spasm. Disc: Reason for discontinue is not on file. Disposition: Return in about 6 months (around 2020). Follow-up and Disposition History Recorded Encounter Status:Closed by LYNNETTE TRAORE on 08/25/19 [facility] PROGRESSon 08-25-2019 PROGRESS HNO ID: [id number] Author: Lynnette Beebe Service: ? Author Type: Physician Type: Progress Notes Filed: 08/25/2019 2:43 PM Note Text: Cardiovascular Medicine Out-Patient Note Chief Complaint Patient presents with: Cardiology Follow Up : Referral from Dr. Mena for cardiac clearance History of Present Illness: Tye Vazquez is a 79 year old with peripheral arterial disease (left more than right; proximal left SFA), nicotine dependence, hypertension, dyslipidemia, GERD and neuropathy who is here today to establish cardiac vascular care. He is scheduled to undergo left angiography/peripheral arterial intervention and possible open bypass by Dr. Mena. Terms of his cardiac complaints, he is asymptomatic and doing well. His only limitation to activities as claudication/lower extreme a numbness. He is able to rake leaves and carry out his daily chores without any difficulties or developing any symptoms. Unfortunately he continues to smoke cigarettes on a daily basis. He had a stressful year where his this past summer. He previously attempted to quit smoking several times. He specifically denies chest pain, dyspnea, dyspnea on exertion, palpitations, lightheadedness, PND, orthopnea or syncope. PAST MEDICAL HISTORY Diagnosis Date - Benign neoplasm of colon - Benign neoplasm of rectum and anal canal - Clostridium difficile colitis 05/14/2017 - DDD (degenerative disc disease), lumbar 11/07/2016 - Diarrhea - Esophageal reflux 08/29/2006 - Essential hypertension, benign - Inguinal hernia without mention of obstruction or gangrene, unilateral or unspecified, (not specified as recurrent) 10/11/2008 - Mixed hyperlipidemia 09/02/2006 - Nonspecific (abnormal) findings on radiological and other examination of abdominal area, including retroperitoneum - PAD (peripheral artery disease) (HCC) - Prostate cancer (HCC) - Rotator cuff impingement syndrome of right shoulder 04/10/2015 - Snoring - Traumatic complete tear of left rotator cuff 11/03/2018 [facility] - Umbilical hernia without mention of obstruction or gangrene 10/11/2008 PAST SURGICAL HISTORY Procedure Laterality Date - COLONOSCOP W/ OR W/O [facility] SPEC 04/26/2014 Colonoscopy - COLONOSCOP W/ OR W/O [facility] SPEC 05/07/16 Colonoscopy - COLONOSCOPY AND POLYPECTOMY 05/15/10 tubular adenomas removed- [place] - LAMINECTOMY,>2 SGMT,LUMBAR 06/11/2018 [facility] [place] - PAST SURGICAL HISTORY OF 2001 bilat cataracts, retina - RECONSTRUCT PROX HUMERAL IMPLANT Right 1993 Arthroplasty, shoulder right x 2. 1991, 1993. - REPAIR ING HERNIA,5+Y/O,REDUCIBL 11/26/2008 left - REPAIR ING HERNIA,5+Y/O,REDUCIBL 01/20/2018 Hernia repair, inguinal right, indirect w/medium mesh plug [facility] - REPAIR UMBILICAL ALBERT,5+Y/O,REDUC 11/26/2008 - SEED [...] mouth once daily. 90 tablet 3 - omeprazole (PRILOSEC) 20 mg capsule Take 1 capsule by mouth once daily. 90 capsule 1 - cyclobenzaprine (FLEXERIL) 10 mg tablet Take 1 tablet by mouth at bedtime as needed for Muscle Spasm. 30 tablet 5 - cilostazol (PLETAL) 50 mg tablet Take 1 tablet by mouth twice daily. 60 tablet 0 - amLODIPine (NORVASC) 10 mg tablet Take 1 tablet by mouth once daily. 90 tablet 1 - gabapentin (NEURONTIN) 300 mg capsule 1 capsule in the morning. Continue 2 capsules at bedtime. 270 capsule 3 - lisinopril (ZESTRIL, PRINIVIL) 20 mg tablet Take 1 tablet by mouth every evening. 90 tablet 1 - lisinopril-hydrochlorothiazi de (PRINZIDE,ZESTORETIC) 20-12.5 mg per tablet [...] acetonide (KENALOG) 0.5 % cream Apply 1 application to affected area twice daily. For rash/itching. Apply sparingly. Avoid face/skin fold. 30 g 0 - aspirin, enteric coated (ASPIRIN, ENTERIC COATED) 81 mg EC tablet Take 1 tablet by mouth once daily. 0 No current facility-administered medications for this visit. Review of Systems Constitutional: Positive for malaise/fatigue. Negative for chills, diaphoresis, fever and weight loss. HENT: Negative for congestion, ear pain, hearing loss, nosebleeds and tinnitus. Eyes: Negative for blurred vision, double vision and photophobia. Respiratory: Negative for cough, hemoptysis, sputum production, shortness of breath and wheezing. Cardiovascular: Positive for claudication. Negative for chest pain, palpitations, orthopnea, leg swelling and PND. Gastrointestinal: Negative for abdominal pain, blood in stool, constipation, diarrhea, heartburn, melena, nausea and vomiting. Genitourinary: Negative for dysuria, frequency, hematuria and urgency. Musculoskeletal: Negative for myalgias. Skin: Negative for itching and rash. Neurological: Positive for sensory change. Negative for dizziness, focal weakness, seizures and headaches. Endo/Heme/Allergies: Bruises/bleeds easily. Psychiatric/Behavioral: Negative for depression and memory loss. The patient does not have insomnia. Physical Examination: Vitals:BP 140/82 Pulse 100 Ht 5' 7 (1.70m) Wt 158 lb (71.7kg) SpO2 92% BMI 24.74 kg/(m2). BP w/Orthostatic Vitals Date and Time Orthostatic BP Orthostatic Pulse BP Pulse BP Position BP Site BP Cuff Size 08/25/19 1312 -- -- 140/82 100 Sitting Right Arm Regular Adult Last 2 Encounter Wt Readings: Date: Wt: 08/25/2019 158 lb (71.7 kg) 08/19/2019 160 lb 3.2 oz (72.7 kg) Physical Exam Constitutional: He is oriented to person, place, and time and well-developed, well-nourished, and in no distress. HENT: Head: Normocephalic. Eyes: Conjunctivae and EOM are normal. Neck: No JVD present. No thyromegaly present. Cardiovascular: Normal rate, regular rhythm, S1 normal, S2 normal and normal heart sounds. PMI is not displaced. Exam reveals no gallop and no friction rub. No murmur heard. Pulses: Radial pulses are 1+ on the right side and 1+ on the left side. Dorsalis pedis pulses are 2+ on the right side and 1+ on the left side. Posterior tibial pulses are 2+ on the right side and 1+ on the left side. Pulmonary/Chest: Effort normal and breath sounds normal. No respiratory distress. He has no wheezes. He has no rales. He exhibits no tenderness. Abdominal: Soft. Bowel sounds are normal. He exhibits no distension. There is no tenderness. There is no rebound and no guarding. Musculoskeletal: Normal range of motion. General: No tenderness, deformity or edema. Neurological: He is alert and oriented to person, place, and time. No cranial nerve deficit. Gait normal. Skin: Skin is warm and dry. No rash noted. No erythema. No pallor. Psychiatric: Mood, memory, affect and judgment normal. [...] High: Negative risk factor for coronary heart disease <40 mg/dL, Low: Positive risk factor for coronary heart disease LDL Cholesterol Date Value Ref Range Status [...] Cardiac Testing Electrocardiogram 08/25/2019: Normal sinus rhythm (PA intervals 160 ms; QRS 104 ms; QTC is 431 ms). RSR' in V1. Echocardiogram 08/17/2019: - The left ventricle is normal in size. There is mild upper septal left ventricular hypertrophy. Left ventricular systolic function is normal. EF = 58 ? 5% (2D biplane) Grade I left ventricular diastolic dysfunction. Wall motion abnormalities as stated above. - The right ventricle is?normal in size. Right ventricular systolic function is normal. - There are no significant valvular abnormalities. SPECT perfusion 08/19/2019: ?1. SPECT Perfusion Study: Normal. ?2. There is no scintigraphic evidence for inducible ischemia. ?3. No evidence of scarred myocardium. ?4. Functional capacity N/A (pharmacological). ?5. Left ventricle is normal in size. The left ventricle systolic function is normal. ?6. Right ventricle is normal in size. ?7. This is a low risk scan. LVEF % 66 Assessment and Plan: 79 year old with peripheral arterial disease who is scheduled for peripheral artery intervention. Assessment -Patient is asymptomatic from a cardiac perspective. -His LVEF was normal on echocardiogram and pharmacological MPI -His pharmacological MPI did not show any significant areas of myocardial ischemia/infarction. -He does not have any significant valve disease -His blood pressure is somewhat elevated today. He notes that his blood pressures usually controlled and he is somewhat anxious this morning. Therapy --The importance of smoking cessation was discussed. He is not ready to quit smoking at [...] vascular surgery --Continue amlodipine, lisinopril, hydrochlorothiazide and metoprolol. Monitor blood pressure and considering adjusting antihypertensives. Perioperative risk assessment --His risk for perioperative cardiac events are low (approximately at 1%) --No further cardiac testing --Proceed with peripheral arterial intervention/surgery understanding benefits and risks Follow up in 6 months time or with any new symptoms/concerns. Electronically signed by Lynnette Traore MD on August 25, 2019, 1:35 PM Normal [facility] Vital Signs Date Time Vital Sign Value Performing Clinician Facility 07-30-2024 10:36-0400 Body mass index (BMI) [Ratio] 22.93 kg/m2 Precious Puneet 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 Work Phone: [facility] 07-30-2024 10:36-0400 Body temperature 98.2 [degF] Precious Puneet 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 Work Phone: [facility] 07-30-2024 10:36-0400 Body weight 66.4 kg Precious Puneet 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 Work Phone: [facility] 07-30-2024 10:36-0400 Diastolic blood pressure 68 mm[Hg] Precious Puneet 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 Work Phone: [facility] 07-30-2024 10:36-0400 Heart rate 63 /min Precious De LeonPuneet 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 Work Phone: [facility] 07-30-2024 10:36-0400 Respiratory rate 22 /min Precious Puneet 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 Work Phone: [facility] 07-30-2024 10:36-0400 Systolic blood pressure 148 mm[Hg] Precious Puneet 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 Work Phone: [facility] 07-16-2024 18:48-0400 Diastolic blood pressure 6 mm[Hg] Talon Bolaños MD Work Phone: [facility] Comment on above: BP ELIZA AVERAGE 07-16-2024 18:48-0400 Heart rate 65 /min Talon Bolaños MD Work Phone: [facility] 07-16-2024 18:48-0400 Systolic blood pressure 182 mm[Hg] Talon Bolaños MD Work Phone: [facility] Comment on above: BP ELIZA AVERAGE 07-16-2024 18:47-0400 Body height 163.2 cm Talon Bolaños MD Work Phone: [facility] 07-16-2024 18:47-0400 Body mass index (BMI) [Ratio] 24.86 kg/m2 Talon Bolaños MD Work Phone: [facility] 07-16-2024 18:47-0400 Body temperature 97.9 [degF] Talon Bolaños MD Work Phone: [facility] 07-16-2024 18:47-0400 Body weight 66.2 kg Talon Bolaños MD Work Phone: [facility] 07-16-2024 18:47-0400 Respiratory rate 20 /min Talon Bolaños MD Work Phone: [facility] 07-16-2024 18:47-0400 SaO2% (BldA) [Mass fraction] 96 % Talon Bolaños MD Work Phone: [facility] 03-11-2024 12:44-0400 Diastolic blood pressure 73 mm[Hg] Precious Puneet 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 Work Phone: [facility] Comment on above: bp eliza average 03-11-2024 12:44-0400 Heart rate 59 /min Precious Puneet 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 Work Phone: [facility] 03-11-2024 12:44-0400 Systolic blood pressure 157 mm[Hg] Precious Puneet 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 Work Phone: [facility] Comment on above: bp eliza average 03-11-2024 12:17-0400 Body mass index (BMI) [Ratio] 25.47 kg/m2 Precious Puneet 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 Work Phone: [facility] 03-11-2024 12:17-0400 Body weight 68.49 kg Precious Puneet 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 Work Phone: [facility] 03-11-2024 12:17-0400 Respiratory rate 22 /min Precious CarreonPuneet 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 Work Phone: [facility] 03-11-2024 12:17-0400 SaO2% (BldA) [Mass fraction] 93 % Precious De LeonPuneet 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 Work Phone: [facility] 02-12-2024 12:11-0400 Body mass index (BMI) [Ratio] 25.3 kg/m2 Precious Puneet 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 Work Phone: [facility] 02-12-2024 12:11-0400 Body weight 68.04 kg Precious Puneet 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 Work Phone: [facility] 02-12-2024 12:11-0400 Diastolic blood pressure 78 mm[Hg] Precious Puneet 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 Work Phone: [facility] 02-12-2024 12:11-0400 Heart rate 49 /min Precious Puneet 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 Work Phone: [facility] 02-12-2024 12:11-0400 Respiratory rate 16 /min Precious Puneet 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 Work Phone: [facility] 02-12-2024 12:11-0400 SaO2% (BldA) [Mass fraction] 96 % Precious Puneet 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 Work Phone: [facility] 02-12-2024 12:11-0400 Systolic blood pressure 158 mm[Hg] Precious Puneet 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 Work Phone: [facility] 01-22-2024 13:10-0400 Diastolic blood pressure 82 mm[Hg] Precious Puneet 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 Work Phone: [facility] 01-22-2024 13:10-0400 Heart rate 58 /min Precious Puneet 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 Work Phone: [facility] 01-22-2024 13:10-0400 Systolic blood pressure 190 mm[Hg] Precious Puneet 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 Work Phone: [facility] 01-22-2024 12:38-0400 Body weight 69.85 kg Precious Puneet 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 Work Phone: [facility] 01-22-2024 12:38-0400 Respiratory rate 20 /min Precious Teixeira 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 Work Phone: [facility] 01-22-2024 12:38-0400 SaO2% (BldA) [Mass fraction] 95 % Precious Teixeira 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 Work Phone: [facility] 01-01-2024 14:03-0400 Diastolic blood pressure 77 mm[Hg] Talon Bolaños MD Work Phone: [facility] 01-01-2024 14:03-0400 Heart rate 52 /min Talon Bolaños MD Work Phone: [facility] 01-01-2024 14:03-0400 Systolic blood pressure 198 mm[Hg] Talon Bolaños MD Work Phone: [facility] 01-01-2024 13:52-0400 Body temperature 97.59 [degF] Talon Bolaños MD Work Phone: [facility] 01-01-2024 13:52-0400 Body weight 70.67 kg Talon Bolaños MD Work Phone: [facility] 01-01-2024 13:52-0400 SaO2% (BldA) [Mass fraction] 84 % Talon Bolaños MD Work Phone: [facility] 08-13-2023 13:34-0400 Body weight 68.95 kg Laverne Juarez MD Work Phone: [facility] 08-13-2023 13:34-0400 Diastolic blood pressure 92 mm[Hg] Laverne Juarez MD Work Phone: [facility] 08-13-2023 13:34-0400 Systolic blood pressure 136 mm[Hg] Laverne Juarez MD Work Phone: [facility] 08-02-2023 11:51-0400 Body height 164 cm Pulm Wstr Work Phone: [facility] 08-02-2023 11:51-0400 Body weight 68.95 kg Pulm Wstr Work Phone: [facility] 08-02-2023 11:51-0400 Heart rate 62 /min Pulm Wstr Work Phone: [facility] 08-02-2023 11:51-0400 Respiratory rate 14 /min Pulm Wstr Work Phone: [facility] 08-02-2023 11:51-0400 SaO2% (BldA) [Mass fraction] 94 % Pulm Wstr Work Phone: [facility] 07-19-2023 11:42-0400 Diastolic blood pressure 77 mm[Hg] Precious Older 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 Work Phone: [facility] 07-19-2023 11:42-0400 Heart rate 62 /min Precious Older 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 P[employer] Work Phone: [facility] 07-19-2023 11:42-0400 Systolic blood pressure 172 mm[Hg] Precious Older 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 P[employer] Work Phone: [facility] 07-19-2023 11:23-0400 Body weight 67.13 kg Precious Older 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 P[employer] Work Phone: [facility] 07-19-2023 11:23-0400 Respiratory rate 22 /min Precious Older 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 P[employer]TER Work Phone: [facility] 07-19-2023 11:23-0400 SaO2% (BldA) [Mass fraction] 87 % Precious Older 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 P[employer]TER Work Phone: [facility] 05-17-2023 13:04-0400 Diastolic blood pressure 69 mm[Hg] Precious Older 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 P[employer]TER Work Phone: [facility] 05-17-2023 13:04-0400 Heart rate 54 /min Precious Older 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 P[employer]TER Work Phone: [facility] 05-17-2023 13:04-0400 Systolic blood pressure 141 mm[Hg] Precious Older 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 P[employer]TER Work Phone: [facility] 05-17-2023 12:19-0400 Body weight 67.59 kg Precious Older 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 P[employer]TER Work Phone: [facility] 05-17-2023 12:19-0400 Respiratory rate 20 /min Precious Older 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 P[employer]TER Work Phone: [facility] 04-29-2023 15:52-0400 Body temperature 97.9 [degF] Graeme Hughes MD Work Phone: [facility] 04-29-2023 15:52-0400 Body weight 68.49 kg Graeme Hughes MD Work Phone: [facility] 04-29-2023 15:52-0400 Diastolic blood pressure 66 mm[Hg] Graeme Hughes MD Work Phone: [facility] 04-29-2023 15:52-0400 Heart rate 62 /min Graeme Hughes MD Work Phone: [facility] 04-29-2023 15:52-0400 Respiratory rate 24 /min Graeme Hughes MD Work Phone: [facility] 04-29-2023 15:52-0400 SaO2% (BldA) [Mass fraction] 95 % Graeme Hughes MD Work Phone: [facility] 04-29-2023 15:52-0400 Systolic blood pressure 178 mm[Hg] Graeme Hughes MD Work Phone: [facility] 04-12-2023 11:43-0400 Diastolic blood pressure 71 mm[Hg] Talon Bolaños MD Work Phone: [facility] 04-12-2023 11:43-0400 Heart rate 58 /min Talon Bolaños MD Work Phone: [facility] 04-12-2023 11:43-0400 Systolic blood pressure 156 mm[Hg] Talon Bolaños MD Work Phone: [facility] 04-12-2023 11:37-0400 Body temperature 97.81 [degF] Talon Bolaños MD Work Phone: [facility] 04-12-2023 11:37-0400 Body weight 67.41 kg Talon Bolaños MD Work Phone: [facility] 04-12-2023 11:37-0400 Respiratory rate 20 /min Talon Bolaños MD Work Phone: [facility] 04-12-2023 11:37-0400 SaO2% (BldA) [Mass fraction] 96 % Talon Bolaños MD Work Phone: [facility] 12-14-2022 13:50-0500 Diastolic blood pressure 58 mm[Hg] Talon Bolaños MD Work Phone: [facility] 12-14-2022 13:50-0500 Systolic blood pressure 126 mm[Hg] Talon Bolaños MD Work Phone: [facility] 12-14-2022 13:11-0500 Body height 165 cm Talon Bolaños MD Work Phone: [facility] 12-14-2022 13:11-0500 Body weight 68.04 kg Talon Bolaños MD Work Phone: [facility] 12-14-2022 13:11-0500 Heart rate 61 /min Talon Bolaños MD Work Phone: [facility] 12-14-2022 13:11-0500 Respiratory rate 18 /min Talon Bolaños MD Work Phone: [facility] 12-14-2022 13:11-0500 SaO2% (BldA) [Mass fraction] 96 % Talon Bolaños MD Work Phone: [facility] 11-01-2022 11:29-0500 Body temperature 97.2 [degF] Talon Bolaños MD Work Phone: [facility] 11-01-2022 11:29-0500 Body weight 68.95 kg Talon Bolaños MD Work Phone: [facility] 11-01-2022 11:29-0500 Diastolic blood pressure 60 mm[Hg] Talon Bolaños MD Work Phone: [facility] 11-01-2022 11:29-0500 Heart rate 60 /min Talon Bolaños MD Work Phone: [facility] 11-01-2022 11:29-0500 Respiratory rate 16 /min Talon Bolaños MD Work Phone: [facility] 11-01-2022 11:29-0500 Systolic blood pressure 122 mm[Hg] Talon Bolaños MD Work Phone: [facility] 10-16-2022 10:40-0500 Body temperature 98.1 [degF] Precious Older 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 P[employer]TER Work Phone: [facility] 10-16-2022 10:40-0500 Body weight 69.4 kg Precious Older 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 P[employer]TER Work Phone: [facility] 10-16-2022 10:40-0500 Diastolic blood pressure 70 mm[Hg] Precious Older 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 P[employer]TER Work Phone: [facility] 10-16-2022 10:40-0500 Heart rate 83 /min Precious Older 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 P[employer]TER Work Phone: [facility] 10-16-2022 10:40-0500 Respiratory rate 20 /min Precious Older 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 P[employer]TER Work Phone: [facility] 10-16-2022 10:40-0500 Systolic blood pressure 127 mm[Hg] Precious Older 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 P[employer]TER Work Phone: [facility] 10-05-2022 13:11-0500 Body temperature 98.1 [degF] Carlos Everett 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 P[employer]TER Work Phone: [facility] 10-05-2022 13:11-0500 Body weight 70.49 kg Carlos Everett 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 P[employer]TER Work Phone: [facility] 10-05-2022 13:11-0500 Diastolic blood pressure 76 mm[Hg] Carlos Pendlebury 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 P[employer]TER Work Phone: [facility] 10-05-2022 13:11-0500 Heart rate 84 /min Carlos Christacandelarioaicha 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 P[employer]TER Work Phone: [facility] 10-05-2022 13:11-0500 Respiratory rate 20 /min Carlos Goodwincandelarioaicha 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 PITTER Work Phone: [facility] 10-05-2022 13:11-0500 SaO2% (BldA) [Mass fraction] 90 % Carlos Floyd 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 P[employer]TER Work Phone: [facility] 10-05-2022 13:11-0500 Systolic blood pressure 140 mm[Hg] Carlos Floyd 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 P[employer]TER Work Phone: [facility] 10-01-2022 16:52-0500 Body temperature 96.91 [degF] Odette Escobar 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 P[employer]TER Work Phone: [facility] 10-01-2022 16:52-0500 Body weight 70.13 kg Odette Escobar APRN.[employer]IVE PITTER Work Phone: [facility] 10-01-2022 16:52-0500 Diastolic blood pressure 82 mm[Hg] Odette Escobar 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 P[employer]TER Work Phone: [facility] 10-01-2022 16:52-0500 Heart rate 69 /min Odette Escobar 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 P[employer]TER Work Phone: [facility] 10-01-2022 16:52-0500 Respiratory rate 20 /min Odette Escobar 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 P[employer]TER Work Phone: [facility] 10-01-2022 16:52-0500 SaO2% (BldA) [Mass fraction] 88 % Odette Escobar APRN.[employer]IVE PITTER Work Phone: [facility] 10-01-2022 16:52-0500 Systolic blood pressure 160 mm[Hg] Odette Escobar 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 P[employer]TER Work Phone: [facility] 07-04-2022 17:16-0400 Diastolic blood pressure 74 mm[Hg] Precious Almeida 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 P[employer]TER Work Phone: [facility] 07-04-2022 17:16-0400 Systolic blood pressure 126 mm[Hg] Precious Older 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 P[employer]TER Work Phone: [facility] 07-04-2022 17:05-0400 Body weight 71.67 kg Precious Older 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 P[employer]TER Work Phone: [facility] 07-04-2022 17:05-0400 Heart rate 85 /min Precious Older 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 P[employer]TER Work Phone: [facility] 07-04-2022 17:05-0400 SaO2% (BldA) [Mass fraction] 93 % Precious Older 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 P[employer]TER Work Phone: [facility] 05-17-2022 11:05-0400 Body height 170.2 cm Nadiya Kalka PA-C Work Phone: [facility] 05-17-2022 11:05-0400 Body weight 70.31 kg Nadiya Kalka PA-C Work Phone: [facility] 05-17-2022 11:05-0400 Diastolic blood pressure 72 mm[Hg] Nadiya Kalka PA-C Work Phone: [facility] 05-17-2022 11:05-0400 Heart rate 52 /min Nadiya Kalka PA-C Work Phone: [facility] 05-17-2022 11:05-0400 Systolic blood pressure 124 mm[Hg] Nadiya Kalka PA-C Work Phone: [facility] 03-23-2022 13:07-0400 Body weight 71.22 kg Precious Older 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 P[employer]TER Work Phone: [facility] 03-23-2022 13:07-0400 Diastolic blood pressure 74 mm[Hg] Precious Older 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 P[employer]TER Work Phone: [facility] 03-23-2022 13:07-0400 Heart rate 68 /min Precious Older 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 P[employer]TER Work Phone: [facility] 03-23-2022 13:07-0400 Respiratory rate 18 /min Precious Older 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 P[employer]TER Work Phone: [facility] 03-23-2022 13: Systolic blood pressure 148 mm[Hg] Precious Older 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 P[employer]TER Work Phone: [facility] Encounters Encounter Date Encounter Type Care Provider Facility Start: 07-30-2024 End: 07-30-2024 Patient encounter procedure Precious Teixeira 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 Work Phone: [facility] Comment on above: Diarrhea, unspecifie d type (Primary Dx); Dehydration Start: 07-30-2024 End: 07-30-2024 ambulatory PRECIOUS TEIXEIRA Facility:[facility] Start: 07-28-2024 End: 07-28-2024 ambulatory Ashia Owen RN Work Phone: [facility] Comment on above: ACM SUSHANT RN ( ER outreach f/u) Start: 07-27-2024 End: 07-27-2024 Emergency department patient visit TALON BOLAÑOS Facility:[facility] Start: 07-16-2024 End: 07-16-2024 ambulatory TALON BOLAÑOS Facility:[facility] Start: 07-16-2024 End: 07-16-2024 Patient encounter procedure Talon Bolaños MD Work Phone: [facility] Comment on above: Medicare annual well ness visit, subsequent (Primary Dx); Screening for depression; Encounter for screening examination for other mental health and behavioral disorders; Mixed hyperlipidemia; Tobacco use disorder; Essential hypertension; Degeneration of intervertebral disc of lumbar region, unspecified whether pain present; Chronic obstructive pulmonary disease, unspecified COPD type (HCC); Need for influenza vaccination; PAD (peripheral artery disease) (HCC) Start: 06-16-2024 End: 06-16-2024 ambulatory TALON BOLAÑOS Facility:[facility] Start: 05-04-2024 End: 05-04-2024 ambulatory TALON BOLAÑOS Facility:[facility] Start: 04-10-2024 ambulatory Kyra Spangler [facility] Start: 04-10-2024 Patient encounter procedure Kyra Spangler [facility] Comment on above: Population Health Na vigation Outreach (Med adherence ) Start: 03-11-2024 End: 03-11-2024 ambulatory PRECIOUS Coats PUNEET Facility:[facility] Start: 03-11-2024 End: 03-11-2024 Patient encounter procedure Precious Coats Puneet 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 Work Phone: [facility] Comment on above: 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); Stage 3a chronic kidney disease (HCC) Start: 02-17-2024 Orders Only Talon abarca MD Work Phone: [facility] Comment on above: Essential hypertensi on (Primary Dx) Results Start: 02-13-2024 End: 02-13-2024 ambulatory TALON BOLAÑOS Facility:[facility] Start: 02-12-2024 End: 02-12-2024 ambulatory PRECIOUS Coats PUNEET Facility:[facility] Start: 02-12-2024 End: 02-12-2024 Patient encounter procedure Precious Jorge L Puneet 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 Work Phone: [facility] Comment on above: Essential hypertensi on (Primary Dx); DDD (degenerative disc disease), lumbar Start: 01-22-2024 End: 01-22-2024 ambulatory PRECIOUS Jorge L PUNEET Facility:[facility] Start: 01-22-2024 End: 01-22-2024 Patient encounter procedure Precious Jorge L Puneet 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 Work Phone: [facility] Comment on above: Essential hypertensi on (Primary Dx); Urinary incontinence, unspecified type; Prostate cancer (HCC) Start: 01-01-2024 End: 01-01-2024 ambulatory TALON BOLAÑOS Facility:[facility] Start: 01-01-2024 End: 01-01-2024 Patient encounter procedure Talon Bolaños MD Work Phone: [facility] [place] Comment on above: Chronic respiratory failure with hypoxia (HCC) (Primary Dx); Idiopathic peripheral neuropathy; Essential hypertension; Chronic obstructive pulmonary disease, unspecified COPD type (HCC) Start: 12-31-2023 ambulatory Liv Kirk denisa HEAD OF HISTORY [facility] [place] Start: 12-19-2023 Refill Talon abarca MD Work Phone: [facility] Comment on above: Refill Request Start: 09-20-2023 ambulatory Talon abarca MD Work Phone: [facility] Comment on above: Allied Health Visit (Medication Adherence Outreach ) Start: 09-17-2023 Telephone encounter Laverne Juarez MD Work Phone: Pulmonary Medicine Comment on above: Oxygen Start: 09-12-2023 ambulatory Talon abarca MD Work Phone: [facility] Comment on above: Allied Health Visit (Medication Adherence Outreach/) Start: 09-09-2023 End: 09-09-2023 ambulatory LAVERNE JUAREZ Facility:[facility] Start: 09-04-2023 Telephone encounter Laverne Juarez MD Work Phone: Pulmonary Medicine Start: 08-28-2023 Telephone encounter Laverne Juarez MD Work Phone: Pulmonary Medicine Comment on above: Orders; Care Coordin ator - Other Start: 08-13-2023 End: 08-13-2023 ambulatory LAVERNE JUAREZ Facility:[facility] Start: 08-13-2023 End: 08-13-2023 Patient encounter procedure Laverne Juarez MD Work Phone: Pulmonary Medicine Comment on above: Pulmonary emphysema, unspecified emphysema type (HCC) (Primary Dx); Cigarette smoker Start: 08-06-2023 Telephone encounter Precious Almeida APRN.CNP Work Phone: [facility] Comment on above: Results Start: 08-02-2023 End: 08-02-2023 ambulatory Pulm Lab [facility] Work Phone: PULM LAB [facility] Comment on above: Spirometry Start: 08-02-2023 End: 08-02-2023 Patient encounter procedure Pulm Lab [facility] Work Phone: [facility] [place] Start: 07-19-2023 End: 07-19-2023 Subsequent hospital visit by physician Bassam [facility] Work Phone: Radiology Comment on above: Short of breath on e xertion [R06.02] Start: 07-19-2023 End: 07-19-2023 Patient encounter procedure Precious Older 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 P[employer]TER Work Phone: [facility] [place] Comment on above: Essential hypertensi on (Primary Dx); Short of breath on exertion; Rash; Tobacco use disorder; Urinary incontinence, unspecified type; History of prostate cancer Start: 07-12-2023 Refill Talon abarca MD Work Phone: [facility] [place] Comment on above: Refill Request Start: 06-05-2023 Refill Talon abarca MD Work Phone: [facility] Comment on above: Refill Request Start: 05-17-2023 End: 05-17-2023 Patient encounter procedure Precious Older 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 Work Phone: [facility] Comment on above: Essential hypertensi on (Primary Dx); Herpes zoster without complication Start: 05-14-2023 Refill Talon abarca MD Work Phone: [address] [place] [address] Comment on above: Refill Request Start: 04-29-2023 End: 04-29-2023 Patient encounter procedure Graeme Hughes MD Work Phone: [facility] Comment on above: Herpes zoster withou t complications (Primary Dx) Start: 04-12-2023 End: 04-12-2023 Patient encounter procedure Talon Bolaños MD Work Phone: [facility] Comment on above: Idiopathic periphera l neuropathy (Primary Dx); Essential hypertension Start: 03-14-2023 Refill Precious Older LOCKSTITCH BACK MAKER [employer] Work Phone: [facility] [place] Comment on above: Refill Request Start: 01-24-2023 ambulatory Talon abarca MD Work Phone: [facility] Comment on above: Allied Health Visit (Medication Adherence Outreach/) Start: 12-14-2022 End: 12-14-2022 Patient encounter procedure Talon Bolaños MD Work Phone: [facility] [place] Comment on above: Medicare annual well ness visit, subsequent (Primary Dx); Idiopathic peripheral neuropathy; Essential hypertension; PAD (peripheral artery disease) (HCC); Mixed hyperlipidemia; Tobacco use disorder; Need for influenza vaccination Start: 11-01-2022 End: 11-01-2022 Patient encounter procedure Talon Bolaños MD Work Phone: [facility] [place] Comment on above: Idiopathic periphera l neuropathy (Primary Dx); 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); Psoriasis Start: 10-22-2022 Telephone encounter Precious Almeida APRN.[employer]IVE P[employer]TER Work Phone: [facility] Comment on above: Results Start: 10-18-2022 Telephone encounter Talon flores MD Work Phone: [facility] Comment on above: Results; Patient Upd ate Start: 10-16-2022 End: 10-16-2022 Patient encounter procedure Precious Almeida APRN.[employer]IVE P[employer]TER Work Phone: [facility] Comment on above: Bilateral calf pain (Primary Dx); Skin lesion of right lower extremity; Essential hypertension; Mixed hyperlipidemia Start: 10-05-2022 End: 10-05-2022 Office outpatient visit 25 minutes Carlos Floyd 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TER Work Phone: [facility] Comment on above: Viral illness (Prima ry Dx) Start: 10-03-2022 Telephone encounter Susanna lester 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 P[employer]TER Work Phone: [facility] Comment on above: Results Start: 10-01-2022 End: 10-01-2022 Patient encounter procedure Odette Escobar 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 P[employer]TER Work Phone: [facility] Comment on above: Rash (Primary Dx) Start: 07-18-2022 Telephone encounter Precious Almeida 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 P[employer]TER Work Phone: [facility] Comment on above: Patient Update Start: 07-04-2022 End: 07-04-2022 Patient encounter procedure Precious Older 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 P[employer]TER Work Phone: [facility] [place] Comment on above: Essential hypertensi on (Primary Dx); Peripheral polyneuropathy Start: 06-14-2022 Refill Talon abarca MD Work Phone: [facility] [place] Comment on above: Refill Request Start: 05-17-2022 End: 05-17-2022 Patient encounter procedure Nadiya Covington PA-C Work Phone: [facility] [place] Comment on above: Abnormal CT scan, co patel (Primary Dx); Gastroesophageal reflux disease, unspecified whether esophagitis present Start: 05-02-2022 E-mail encounter fro m caregiver [facility] Start: 05-02-2022 Patient encounter procedure [facility] Comment on above: Appointment Cancella tion for 06-29-22 Start: 04-25-2022 Refill Talon abarca MD Work Phone: [facility] Comment on above: Refill Request Start: 04-24-2022 Telephone encounter Talon flores MD Work Phone: [facility] [place] Comment on above: Release Of Medical R ecords Start: 03-23-2022 End: 03-23-2022 Patient encounter procedure Precious Older 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 Work Phone: [facility] [place] Comment on above: Colitis (Primary Dx) ; Essential hypertension; Constipation, unspecified constipation type Start: 03-21-2022 Patient Outreach Emi Zee RN [facility] Comment on above: Transition Of Care ( TCM initial outreach discharge 03/20/2022) Start: 02-05-2022 Refill Talon abarca MD Work Phone: [facility] Comment on above: Refill Request Start: 01-11-2022 Refill Talon abarca MD Work Phone: [facility] Comment on above: Refill Request Start: 01-04-2022 End: 01-04-2022 Subsequent hospital visit by physician Xr [facility] [place] Work Phone: Radiology Comment on above: Localized swelling o n left hand [R22.32] Start: 12-20-2021 Refill Talon abarca MD Work Phone: [facility] [place] Comment on above: Refill Request Start: 10-11-2021 End: 10-11-2021 Subsequent hospital visit by physician Xr [facility] Work Phone: Radiology Comment on above: Cough [R05.9] Start: 02-20-2021 End: 02-20-2021 Subsequent hospital visit by physician Xr [facility] [place] Work Phone: Radiology Comment on above: Cough [R05] Start: 04-10-2015 End: 06-20-2018 Patient encounter procedure Precious Teixeira 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 Work Phone: [facility] Procedures Date Procedure Procedure Detail Performing Clinician Start: 07-16-2024 Adult depression scr eening assessment Talon Bolaños MD Work Phone: Start: 08-02-2023 Plethysmography lung volumes w/wo airway resist Precious Almeida 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 Work Phone: Start: 07-19-2023 Radiologic exam ches t 2 views Precious Teixeira 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 P[employer]TER Work Phone: Start: 12-14-2022 INFLUENZA SEASONAL QUADRIVALENT HIGH DOSE AGE 65+ Talon Bolaños MD Work Phone: Start: 10-05-2022 COVID WITH FLUA+B, ROUTINE Carlos Floyd 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 P[employer]TER Work Phone: Start: 01-04-2022 Radex hand minimum 3 views Joan Hall 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 P[employer]TER Work Phone: Start: 10-11-2021 Radiologic exam ches t 2 views Susanna Mancini 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 P[employer]TER Work Phone: Start: 02-20-2021 Radiologic exam ches t 2 views Susanna Mancini 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 P[employer]TER Work Phone: Plan of Treatment Date Care Activity Detail Author Start: 07-27-2027 Diabetes Screening Diabetes Screening [facility] Start: 02-12-2027 Diabetes Screening Diabetes Screening [facility] Start: 10-16-2025 DIABETES SCREEN DIABETES SCREEN [facility] Start: 10-16-2025 Diabetes Screening Diabetes Screening [facility] Start: 07-16-2025 Anxiety Screening Anxiety Screening [facility] Start: 07-16-2025 Depression Screening Depression Screening [facility] Start: 03-20-2025 DIABETES SCREEN DIABETES SCREEN [facility] Start: 10-19-2024 End: 10-19-2024 Patient encounter procedure 10/19/2024 2:40 PM EST Office Visit [facility] [address] [place], [place] [id number] Precious Teixeira, 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TER [address] [place], [place] [address] 3 Month F/U [facility] Comment on above: 3 Month F/U Start: 09-23-2024 End: 09-23-2024 Patient encounter procedure 09/23/2024 1:25 PM EST Office Visit [facility] [address] [place] [id number] Nadiya Covington PA-C [address] [place], [place] [id number] Diarrhea, unspecified type [R19.7] [facility] Comment on above: Diarrhea, unspecified type [R19.7] Start: 09-18-2024 DIABETES SCREEN DIABETES SCREEN [facility] Start: 07-15-2024 End: 07-15-2024 Patient encounter procedure 07/15/2024 1:40 PM EDT Office Visit [facility] [place] [address] [place], [place] [id number] Talon Bolaños MD [address] [place], [place] [id number] 4 month wellness exam [facility] [place] Comment on above: 4 month wellness exam Start: 06-14-2024 Covid-19 Vaccine ( season) Covid-19 Vaccine ( season) [facility] Start: 06-14-2024 Covid-19 Vaccine ( season) Covid-19 Vaccine () [facility] Start: 06-14-2024 Influenza vaccination [facility] Start: 03-11-2024 End: 03-11-2024 Patient encounter procedure 03/11/2024 12:20 PM EDT Office Visit [facility] [address] [place] [address] Precious Teixeira, 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 [address] [place] [address] 4 week follow up, blood pressure [facility] [place] Comment on above: 4 week follow up, blood pressure Start: 03-02-2024 End: 06-01-2024 Comprehensive metabolic 2000 panel - Serum or Plasma COMP METABOLIC PANEL Lab Routine Mixed hyperlipidemia Expected: 03/02/2024, Expires: 06/01/2024 [facility] Work Phone: Comment on above: Expected: 03/02/2024, Expires: 4 Start: 03-02-2024 End: 06-01-2024 Lipid 1996 panel - Serum or Plasma LIPID PANEL BASIC Lab Routine Mixed hyperlipidemia Expected: 03/02/2024, Expires: 06/01/2024 [facility] Work Phone: Comment on above: Expected: 03/02/2024, Expires: 4 Start: 03-02-2024 End: 06-01-2024 Prostate specific Ag [Mass/volume] in Serum or Plasma PROSTATE-SPECIFIC ANTIGEN DIAGNOSTIC Lab Routine Prostate cancer (HCC) Expected: 03/02/2024 (Approximate), Expires: 06/01/2024 [facility] Work Phone: Comment on above: Expected: 03/02/2024 (Approximate), Expi res: 06/01/2024 Start: 10-16-2023 SHINGRIX VACCINE (2 of 3) SHINGRIX VACCINE (2 of 3) [facility] Comment on above: Postponed from 09/17/2015 (Declined at t his time) Start: 10-16-2023 Urine microalbumin profile [facility] Comment on above: Postponed from 08/09/2021 (Declined at t his time) Start: 10-14-2023 Advance Directive Discussion Advance Directive Discussion [facility] Start: 10-14-2023 Behavioral Health Screening Behavioral Health Screening [facility] Start: 10-14-2023 Depression Assessment Depression Assessment [facility] Start: 07-19-2023 End: 09-18-2023 Prostate specific Ag [Mass/volume] in Serum or Plasma PSA/PROSTSPECAG DIAG Lab Routine History of prostate cancer Urinary incontinence, unspecified type Expected: 07/19/2023, Expires: 09/18/2023 [facility] Work Phone: Comment on above: Expected: 07/19/2023, Expires: 3 Start: 07-19-2023 End: 09-18-2023 Urinalysis complete panel - Urine URINALYSIS, WITH MICROSCOPIC Lab Routine Urinary incontinence, unspecified type Expected: 07/19/2023, Expires: 09/18/2023 [facility] Work Phone: Comment on above: Expected: 07/19/2023, Expires: 3 Start: 06-14-2023 Covid-19 Vaccine (2022- season) Covid-19 Vaccine ( season) [facility] Start: 06-14-2023 Influenza vaccination [facility] Start: 04-12-2023 Influenza vaccination INFLUENZA (#1) [facility] Comment on above: Postponed from 06/14/2022 (Declined at t his time) Start: 03-23-2023 COVID-19 VACCINE (3 - Booster for Moderna series) COVID-19 VACCINE (3 - Booster for Moderna series) [facility] Comment on above: Postponed from 06/20/2021 (Declined at t his time) Postponed from 03/15 (Declined at this time) Start: 10-19-2022 End: 12-19-2022 C reactive protein [Mass/volume] in Serum or Plasma C-REACTIVE PROTEIN (CRP) Lab Routine Bilateral lower extremity pain Expected: 10/19/2022, Expires: 12/19/2022 [facility] Work Phone: Comment on above: Expected: 10/19/2022, Expires: 3 Start: 10-19-2022 End: 12-19-2022 CBC W Auto Differential panel - Blood CBC + DIFF Lab Routine Bilateral lower extremity pain Expected: 10/19/2022, Expires: 12/19/2022 [facility] Work Phone: Comment on above: Expected: 10/19/2022, Expires: 3 Start: 10-19-2022 End: 12-19-2022 Creatine kinase [Enzymatic activity/volume] in Serum or Plasma CK CREATINE KINASE Lab Routine Bilateral lower extremity pain Expected: 10/19/2022, Expires: 12/19/2022 [facility] Work Phone: Comment on above: Expected: 10/19/2022, Expires: 3 Start: 10-19-2022 End: 12-19-2022 Erythrocyte sedimentation rate SED RATE WESTERGREN Lab Routine Bilateral lower extremity pain Expected: 10/19/2022, Expires: 12/19/2022 [facility] Work Phone: Comment on above: Expected: 10/19/2022, Expires: 3 Start: 10-14-2022 ADVANCE DIRECTIVE DISCUSSION ADVANCE DIRECTIVE DISCUSSION [facility] Start: 10-14-2022 DEPRESSION ASSESSMENT DEPRESSION ASSESSMENT [facility] Start: 10-01-2022 End: 12-01-2022 Herpes simplex virus+Varicella zoster virus DNA [Presence] in Unspecified specimen by TRACY with probe detection HSV 1,2/VZV AMP MOLECULAR DETECT Lab Routine Rash Expected: 10/01/2022, Expires: 12/01/2022 [facility] Work Phone: Comment on above: Expected: 10/01/2022, Expires: 3 Start: 08-29-2022 Urine microalbumin profile DTAP,TDAP,TD (2 - Td or Tdap) [facility] Comment on above: Postponed from 08/09/2021 (Declined at t his time) Start: 07-17-2022 SHINGRIX VACCINE (2 of 3) SHINGRIX VACCINE (2 of 3) [facility] Comment on above: Postponed from 09/17/2015 (Declined at t his time) Start: 06-14-2022 Influenza vaccination INFLUENZA (#1) [facility] Start: 10-14-2021 ADVANCE DIRECTIVE DISCUSSION ADVANCE DIRECTIVE DISCUSSION [facility] Start: 10-14-2021 DEPRESSION ASSESSMENT DEPRESSION ASSESSMENT [facility] Start: 08-09-2021 Urine microalbumin profile [facility] Start: 06-20-2021 COVID-19 VACCINE (3 - Booster for Moderna series) COVID-19 VACCINE (3 - Booster for Moderna series) [facility] Start: 03-15-2021 COVID-19 VACCINE (3 - Booster for Moderna series) COVID-19 VACCINE (3 - Booster for Moderna series) [facility] Start: 03-15-2021 COVID-19 VACCINE (3 - Moderna series) COVID-19 VACCINE (3 - Moderna series) [facility] Start: 09-17-2015 SHINGRIX VACCINE (2 of 3) SHINGRIX VACCINE (2 of 3) [facility] Start: 02-22-2015 RSV Vaccine (1 - 1-dose 75+ series) RSV Vaccine (1 - 1-dose 75+ series) [facility] Start: 2000 RSV Vaccine (1 - 1-dose 60+ series) RSV Vaccine (1 - 1-dose 60+ series) [facility] Start: 02-22-1958 Anxiety Screening Anxiety Screening [facility] Start: 02-22-1958 Depression Screening Depression Screening [facility] C reactive protein [Mass/volume] in Serum or Plasma C-REACTIVE PROTEIN (CRP) Lab Routine Bilateral lower extremity pain 10/20/2022 9:50 AM EST [facility] Work Phone: CBC W Auto Differential panel - Blood CBC + DIFF Lab Routine Bilateral lower extremity pain 10/20/2022 9:50 AM EST [facility] Work Phone: Creatine kinase [Enzymatic activity/volume] in Serum or Plasma CK CREATINE KINASE Lab Routine Bilateral lower extremity pain 10/20/2022 9:50 AM EST [facility] Work Phone: Erythrocyte sedimentation rate SED RATE WESTERGREN Lab Routine Bilateral lower extremity pain 10/20/2022 9:50 AM EST [facility] Work Phone: End: 08-17-2024 LUNG DIFFUSION CAPACITY (DLCO) LUNG DIFFUSION CAPACITY (DLCO) PFT Routine Short of breath on exertion Tobacco use disorder 1 Occurrences starting 07/19/2023 until 08/17/2024 [facility] Work Phone: Comment on above: 1 Occurrences starting 07/19/2023 until 08/17/2024 End: 08-17-2024 LUNG VOLUMES LUNG VOLUMES PFT Routine Short of breath on exertion Tobacco use disorder 1 Occurrences starting 07/19/2023 until 08/17/2024 [facility] Work Phone: Comment on above: 1 Occurrences starting 07/19/2023 until 08/17/2024 OXIMETRY - NOCTURNAL OXIMETRY - NOCTURNAL Procedures Routine Pulmonary emphysema, unspecified emphysema type (HCC) Ordered: 08/13/2023 [facility] Work Phone: Comment on above: Ordered: 08/13/2023 End: 09-11-2024 OXIMETRY WITH AMBULATION OXIMETRY WITH AMBULATION PFT Routine Pulmonary emphysema, unspecified emphysema type (HCC) 1 Occurrences starting 08/13/2023 until 09/11/2024 [facility] Work Phone: Comment on above: 1 Occurrences starting 08/13/2023 until 09/11/2024 End: 08-17-2024 Radiologic exam chest 2 views XR CHEST 2V FRONTAL/LAT Radiology Routine Short of breath on exertion Tobacco use disorder 1 Occurrences starting 07/19/2023 until 08/17/2024 [facility] Work Phone: Comment on above: 1 Occurrences starting 07/19/2023 until 08/17/2024 Radiologic exam ches t 2 views XR CHEST 2V FRONTAL/LAT Radiology Routine Short of breath on exertion Tobacco use disorder 07/19/2023 12:23 PM EDT [facility] Work Phone: End: 08-17-2024 SPIROMETRY - BASELINE AND POST DILATOR SPIROMETRY - BASELINE AND POST DILATOR PFT Routine Short of breath on exertion Tobacco use disorder 1 Occurrences starting 07/19/2023 until 08/17/2024 [facility] Work Phone: Comment on above: 1 Occurrences starting 07/19/2023 until 08/17/[address] [facility] Immunizations Immunization Date Immunization Notes Care Provider Fa cili 07-16-2024 influenza, high dose seasonal, preservative-free Talon Bolaños MD Work Phone: [facility] 12-14-2022 influenza, high-dose , quadrivalent vaccine (FLUZONE HIGH DOSE QUADRIVALENT) Talon Bolaños MD Work Phone: [facility] 12-14-2022 influenza virus vacc ine, unspecified formulation Talon Bolaños MD Work Phone: [facility] 07-17-2021 influenza, high-dose , quadrivalent vaccine (FLUZONE HIGH DOSE QUADRIVALENT) Talon Bolaños MD Work Phone: [facility] 01-18-2021 COVID-19 vaccine, fu ll dose (MODERNA) Talon Bolaños MD Work Phone: [facility] 12-21-2020 COVID-19 vaccine, fu ll dose (MODERNA) Talon Bolaños MD Work Phone: [facility] Work Phone: 09-14-2020 influenza, high-dose , quadrivalent vaccine (FLUZONE HIGH DOSE QUADRIVALENT) Talon Bolaños MD Work Phone: [facility] 08-17-2019 influenza, high dose seasonal, preservative-free Talon Bolaños MD Work Phone: [facility] Work Phone: 06-19-2018 influenza, high dose seasonal, preservative-free Talon Bolaños MD Work Phone: [facility] 07-05-2016 influenza, high dose seasonal, preservative-free Talon Bolaños MD Work Phone: [facility] 09-19-2015 pneumococcal conjuga te vaccine, 13 valent Talon Bolaños MD Work Phone: [facility] 07-23-2015 influenza, seasonal, injectable Talon Bolaños MD Work Phone: [facility] 07-23-2015 zoster vaccine, live Talon Bolaños MD Work Phone: [facility] 07-24-2014 influenza, high dose seasonal, preservative-free Talon Bolaños MD Work Phone: [facility] 08-31-2013 influenza virus vacc ine, unspecified formulation Talon Bolaños MD Work Phone: [facility] 08-11-2012 influenza virus vacc ine, unspecified formulation Talon Bolaños MD Work Phone: [facility] 08-09-2011 influenza virus vacc ine, unspecified formulation Talon Bolaños MD Work Phone: [facility] 08-09-2011 tetanus toxoid, redu dolores diphtheria toxoid, and acellular pertussis vaccine, adsorbed Talon Bolaños MD Work Phone: [facility] 03-19-2007 pneumococcal polysaccharide vaccine, 23 valent Talon Bolaños MD Work Phone: [facility] Payers Date Payer Category Payer Medicare [id number] [address] [facility] [employer] O [id number] 2021-Present [phone] [address] [place] [address] O [id number] 2021 Unknown [id number] 2021 Medicare [id number] 2019 Medicare [id number] Social History Date Type Detail Facility Start: 02-22-1961 End: 07-16-2024 Tobacco smoking status NHIS Smokes tobacco daily [facility] Work Phone: Start: 02-22-1961 History of tobacco use Cigarette Smo ker [facility] Work Phone: Start: 03-12-2013 End: 07-16-2024 Tobacco use and exposure Smokeless tobacco non-user [facility] Work Phone: Start: 01-04-2022 End: 07-30-2024 Alcohol intake Current drinker of alcohol (finding) [facility] Start: 01-04-2022 End: 04-12-2023 Alcohol intake [facility] Work Phone: Start: 09-15-2020 End: 12-14-2022 History SDOH Financial 5 [facility] Start: 09-15-2020 End: 03-19-2022 History SDOH Food Worry 1 [facility] Start: 09-15-2020 End: 03-19-2022 History SDOH Transport Med 2 [facility] Start: 09-15-2020 Education 10 [facility] Start: 09-20-2020 End: 10-01-2022 Tobacco Comment 5-6 per day [facility] Start: 1940 Sex Assigned At Not on file [facility] Start: 01-21-2021 End: 07-04-2022 Exposure to SARS-CoV-2 (event) Not sure [facility] Work Phone: Start: 03-19-2022 History SDOH Financial 4 [facility] Start: 12-14-2022 History SDOH Physica l Activity DPW 0 [facility] Start: 12-14-2022 End: 04-12-2023 Alcohol Use Disorder Identification Test - Consumption [AUDIT-C] [facility] Work Phone: How often to you hav e a drink containing alcohol? 4 or more times a week [facility] Work Phone: How many standard dr inks containing alcohol do you have on a typical day? 1 or 2 [facility] Work Phone: How often do you hav e 6 or more drinks on 1 occasion? Never [facility] Work Phone: Adult Depression Scr eening Assessment 0 [facility] Work Phone: How hard is it for y ou to pay for the very basics like food, housing, medical care, and heating Not very hard [facility] (I/We) worried christiano er (my/our) food would run out before (I/we) got money to buy more. Never true [facility] In the past 12 month s, was there a time when you were not able to pay the mortgage or rent on time? No [facility] Start: 08-13-2023 Tobacco Comment 5-6 per day. O ne ppd in pastAble to quit for 5 years and 3 years [facility] Start: 09-20-2020 Alcohol Comment 3-4 wine at ni ght, sometimes beer [facility] Medical Equipment Procedure Code Equipment Code Equipment Original Text Equipment Identifier Dates Catheter Bactise al Evd Codman Silicone 3-15cm External Drainage - [id number] Start: 09-15-2020 Patch Xenosure B ovine Pericardium [id number] Vascular Sterile Disposable - [id number] Start: 09-21-2019 Plate Low Profil e Titanium 12mm Bone 2 Hole Bar 1.5mm Screw Nonsterile - [id number] Start: 09-15-2020 Plate Low Profil e Titanium 12mm Bone 2 Hole Bar 1.5mm Screw Nonsterile - [id number] Start: 09-15-2020 Plate [employer] 14mm Bone Shunt Tab Craniomaxillofacial - [id number] Start: 09-15-2020 Screw 1.5mm 4mm Bone Self Drill Cross Pin Craniomaxillofacial - [id number] Start: 09-15-2020 Clinical Notes 09-20-2020 to 07-30-2024 Patient InstructionsPrecious Teixeira, 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 PITTER - 07/30/2024 10:40 AM Ashia Ko RN - 07/28/2024 3:01 PM EDTPatient InstructionsTalon Bolaños MD - 07/16/2024 7:21 PM EDT Note Date & Type Note Facility 07-30-2024 Instructions Precious Teixeira APRN.MARIAH - 07/30/2024 11:13 AM EDT Stop the Magnesium supplement, continue with potassium Start Questran (cholestyramine), take twice a day. Let me know in one week if diarrhea is not better and we can increase the dose Stay hydrated, recommend electrolyte replacement such as Pedialyte documented in this encounter [facility] 07-30-2024 History of Present illness Narrative CC: Patient presents with: ED Follow-up HPI Tye Vazquez is a 84 year old male who presents today for above. He presented to [facility] on 07/25 with diarrhea x 2 weeks. Potassium was 2.9, treated with oral potassium. His creat was 1.24, at baseline. Stool cultures for enteric pathogens and C-diff were negative. He then presented to [place] [facility] two days later with ongoing diarrhea. Labs were essentially unremarkable other than hypokalemia and hypomagnesemia. Treated with IV mag and potassium and discharged home with oral prescriptions of both. Today patient reports no improvement in diarrhea. Taking Imodium after each BM but not helping. Averaging about 6 to 8 loose, watery stools a day. Associated with urgency and occasional incontinence in his sleep. Appetite is decreased, not eating much but is pushing fluids including water and haley fred. Denies fever, chills, abdominal pain, nausea, vomiting, black/bloody stools, rectal bleeding. He has not had a normal BM since diarrhea started. No new medications. PMH is non-contributory. Last colonoscopy was 2015, he was supposed to have repeat in three years but never done. Review of Systems Constitutional: Positive for fatigue. Negative for unexpected weight change. Respiratory: Negative for shortness of breath. Cardiovascular: Negative for palpitations and leg swelling. Genitourinary: Negative for decreased urine volume, difficulty urinating and dysuria. Neurological: Negative for dizziness, syncope, weakness, light-headedness and headaches. 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 Chronic respiratory failure with hypoxia (HCC) 01/01/2024 Clostridium difficile colitis 05/14/2017 COPD (chronic obstructive pulmonary disease) (HCC) 08/13/2023 DDD (degenerative disc disease), lumbar 11/07/2016 Diarrhea Esophageal reflux 08/29/2006 Essential hypertension, benign Inguinal hernia without mention of obstruction or gangrene, unilateral or unspecified, (not specified as recurrent) 10/11/2008 Mixed hyperlipidemia 09/02/2006 Nonspecific (abnormal) findings on radiological and other examination of abdominal area, including retroperitoneum PAD (peripheral artery disease) (HCC) Prostate cancer (HCC) 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. Traumatic subdural hematoma without loss of consciousness (HCC) 09/14/2020 Umbilical hernia without mention of obstruction or gangrene 10/11/2008 PAST SURGICAL HISTORY Procedure Laterality Date ARTHROPLASTY GLENOHUMRL JT HEMIARTHROPLASTY Right 1994 Arthroplasty, shoulder right x 2. 1991, 1993. COLONOSCOPY & POLYPECTOMY 05/15/2010 tubular adenomas removed- [place] COLONOSCOPY DIAGNOSTIC 06/05/2022 sigmoid tubular adenoma COLONOSCOPY FLX DX W/COLLJ SPEC WHEN PFRMD 04/26/2014 Colonoscopy COLONOSCOPY FLX DX W/COLLJ SPEC WHEN PFRMD 05/07/2016 Colonoscopy EGD 05/04/2022 LAMINECTOMY W/O FFD > 2 VERT SEG LUMBAR 06/11/2018 [facility] [place] PAST SURGICAL HISTORY OF 2001 bilat cataracts, retina PAST SURGICAL HISTORY OF Left 09/2019 femoral artery PAST SURGICAL HISTORY OF 09/14/2020 CRANIOTOMY FOR EVACUATION OF SUPRATENTORIAL SUBDURAL HEMATOMA RPR 1ST INGUN HRNA AGE 5 YRS/> REDUCIBLE 11/26/2008 left RPR 1ST INGUN HRNA AGE 5 YRS/> REDUCIBLE 01/20/2018 Hernia repair, inguinal right, indirect w/medium mesh plug [facility] RPR UMBILICAL HRNA 5 YRS/> REDUCIBLE 11/26/2008 SEED IMPLANT 05/2010 for prostate cancer SIGMOIDOSCOPY FLX DX W/COLLJ SPEC BR/WA IF PFRMD 12/05/2010 ALLERGIES Patient has no known allergies. MEDICATIONS magnesium oxide (MAGOX) 400 mg (241.3 mg magnesium) tablet Take 1 tablet by mouth once daily for 7 days. potassium chloride ER (KLOR-CON) 20 mEq tablet Take 1 tablet by mouth once daily for 7 days. loperamide (IMODIUM) 2 mg cap(s) Take 1 capsule by mouth four times a day as needed for up to 7 days. spironolactone (ALDACTONE) 25 mg tablet Take 1 tablet by mouth once daily. From Dr. Desai. amLODIPine (NORVASC) 10 mg tablet Take 1 tablet by mouth once daily. gabapentin (NEURONTIN) 300 mg capsule Take 1 capsule by mouth daily at bedtime for 180 days. gabapentin (NEURONTIN) 100 mg capsule Take 1 capsule by mouth every morning for 60 days. metoprolol tartrate, short acting, (LOPRESSOR) 50 mg tablet Take 1 tablet by mouth two times a day. chlorthalidone (HYGROTON) 25 mg tablet Take 1 tablet by mouth once daily. albuterol HFA (VENTOLIN HFA) 90 mcg/actuation inhaler Inhale 2 Puffs as instructed every 4 hours as needed for wheezing/shortness of breath. umeclidinium-vilanterol (ANORO ELLIPTA) 62.5-25 mcg/actuation inhaler Inhale 1 Inhalation as instructed once daily. doxazosin (CARDURA) 4 mg tablet Take 1 tablet by mouth daily at bedtime. Added to 8 mg tablet. doxazosin (CARDURA) 8 mg tablet Take 1 tablet by mouth daily at bedtime. lisinopril (ZESTRIL) 40 mg tablet Take 1 tablet by mouth once daily. omeprazole (PRILOSEC) 20 mg capsule Take 1 capsule by mouth once daily. acetaminophen (TYLENOL) 325 mg tablet Take 2 tablets by mouth every 4 hours as needed. FAMILY HISTORY Problem Relation Age of Onset Stroke Mother Blood Disease Father No Known Problems Sister No Known Problems Sister Diabetes Brother skin cancer Prostate Cancer Brother Cancer Brother Coronary Artery Disease Brother other (Other) Brother paraplegia Prostate Cancer Brother No Ocular Disease Other Social History Tobacco Use Smoking status: Every Day Current packs/day: 0.50 Average packs/day: 0.5 packs/day for 63.4 years (31.7 ttl pk-yrs) Types: Cigarettes Start date: 02/22/1961 Smokeless tobacco: Never Vaping Use Vaping status: Never Used Substance Use Topics Alcohol use: Yes Alcohol/week: 7.0 standard drinks of alcohol Types: 7 Glasses of Wine (5oz) per week Drug use: No BP 148/68 Pulse 63 Temp 36.8 C (98.2 F) (Temporal) Resp 22 Wt 66.4 kg (146 lb 6.2 oz) BMI 22.93 kg/m Physical Exam Vitals reviewed. Constitutional: General: He is not in acute distress. Appearance: He is ill-appearing. He is not toxic-appearing. HENT: Mouth/Throat: Mouth: Mucous membranes are moist. Eyes: Conjunctiva/sclera: Conjunctivae normal. Cardiovascular: Rate and Rhythm: Normal rate and regular rhythm. Pulmonary: Effort: Pulmonary effort is normal. Breath sounds: Normal breath sounds. Abdominal: General: Bowel sounds are increased. There is no distension. Palpations: Abdomen is soft. There is no hepatomegaly, splenomegaly or mass. Tenderness: There is abdominal tenderness (LLQ, mild). There is no guarding or rebound. Skin: General: Skin is warm and dry. Coloration: Skin is not pale. Neurological: Mental Status: He is alert. Psychiatric: Mood and Affect: Mood normal. I have reviewed the patient s records from [facility] and [facility] including diagnostic testing performed, their discharge medications, and my assessment and plan with the patient and any family members present at today s visit. ASSESSMENT/PLAN: 1. Diarrhea, unspecified type - ICD9: 787.91, ICD10: R19.7 (primary diagnosis) Etiology unclear. Stool cultures negative. Patient appears to be well hydrated. Abdominal exam benign. Recommend stopping Magnesium which is potentially contributing to lack of improvement in diarrhea. Imodium ineffective, will start treatment with Questran: - CHOLESTYRAMINE (WITH SUGAR) 4 GRAM ORAL POWDER, take 2 gm twice a day. Call in one week if ineffective - importance of hydration stressed, recommend electrolyte replacement such as Pedialyte instead of water. Encouraged to increase intake of solid foods, bland diet for now and avoid greasy or spicy foods. - CONSULT TO GASTROENTEROLOGY for further evaluation and recommendations 2. Dehydration - ICD9: 276.51, ICD10: E86.0 As above Prescription instructions reviewed with patient as applicable. Potential red flag symptoms discussed with the patient. Reviewed appropriate action plan to take if red flag symptoms occur. Patient agreeable to treatment plan. Precious Teixeira APRN.MARIAH documented in this encounter [facility] 07-30-2024 Note HNO ID: [id number] Author: PRECIOUS TEIXEIRA APRN.CNP Service: ? Author Type: Nurse Practitioner Type: Progress Notes Filed: 07/30/2024 11:47 Note Text: CC: Patient presents with: ED Follow-up HPI Tye Vazquez is a 84 year old male who presents today for above. He presented to [facility] on 07/25 with diarrhea x 2 weeks. Potassium was 2.9, treated with oral potassium. His creat was 1.24, at baseline. Stool cultures for enteric pathogens and C-diff were negative. He then presented to [place] [facility] two days later with ongoing diarrhea. Labs were essentially unremarkable other than hypokalemia and hypomagnesemia. Treated with IV mag and potassium and discharged home with oral prescriptions of both. Today patient reports no improvement in diarrhea. Taking Imodium after each BM but not helping. Averaging about 6 to 8 loose, watery stools a day. Associated with urgency and occasional incontinence in his sleep. Appetite is decreased, not eating much but is pushing fluids including water and haley fred. Denies fever, chills, abdominal pain, nausea, vomiting, black/bloody stools, rectal bleeding. He has not had a normal BM since diarrhea started. No new medications. PMH is non-contributory. Last colonoscopy was 2015, he was supposed to have repeat in three years but never done. Review of Systems Constitutional: Positive for fatigue. Negative for unexpected weight change. Respiratory: Negative for shortness of breath. Cardiovascular: Negative for palpitations and leg swelling. Genitourinary: Negative for decreased urine volume, difficulty urinating and dysuria. Neurological: Negative for dizziness, syncope, weakness, light-headedness and headaches. 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 Chronic respiratory failure with hypoxia (HCC) 01/01/2024 Clostridium difficile colitis 05/14/2017 COPD (chronic obstructive pulmonary disease) (HCC) 08/13/2023 DDD (degenerative disc disease), lumbar 11/07/2016 Diarrhea Esophageal reflux 08/29/2006 Essential hypertension, benign Inguinal hernia without mention of obstruction or gangrene, unilateral or unspecified, (not specified as recurrent) 10/11/2008 Mixed hyperlipidemia 09/02/2006 Nonspecific (abnormal) findings on radiological and other examination of abdominal area, including retroperitoneum PAD (peripheral artery disease) (HCC) Prostate cancer (HCC) 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. Traumatic subdural hematoma without loss of consciousness (HCC) 09/14/2020 Umbilical hernia without mention of obstruction or gangrene 10/11/2008 PAST SURGICAL HISTORY Procedure Laterality Date ARTHROPLASTY GLENOHUMRL JT HEMIARTHROPLASTY Right 1993 Arthroplasty, shoulder right x 2. 1991, 1993. COLONOSCOPY AND POLYPECTOMY 05/15/2010 tubular adenomas removed- [place] COLONOSCOPY DIAGNOSTIC 06/05/2022 sigmoid tubular adenoma COLONOSCOPY FLX DX W/COLLJ SPEC WHEN PFRMD 04/26/2014 Colonoscopy COLONOSCOPY FLX DX W/COLLJ SPEC WHEN PFRMD 05/07/2016 Colonoscopy EGD 05/04/2022 LAMINECTOMY W/O FFD > 2 VERT SEG LUMBAR 06/11/2018 [facility] PAST SURGICAL HISTORY OF 2001 bilat cataracts, retina PAST SURGICAL HISTORY OF Left 09/2019 femoral artery PAST SURGICAL HISTORY OF 09/14/2020 CRANIOTOMY FOR EVACUATION OF SUPRATENTORIAL SUBDURAL HEMATOMA RPR 1ST INGUN HRNA AGE 5 YRS/> REDUCIBLE 11/26/2008 left RPR 1ST INGUN HRNA AGE 5 YRS/> REDUCIBLE 01/20/2018 Hernia repair, inguinal right, indirect w/medium mesh plug [facility] RPR UMBILICAL HRNA 5 YRS/> REDUCIBLE 11/26/2008 SEED IMPLANT 05/2010 for prostate cancer SIGMOIDOSCOPY FLX DX W/COLLJ SPEC BR/WA IF PFRMD 12/05/2010 ALLERGIES Patient has no known allergies. MEDICATIONS magnesium oxide (MAGOX) 400 mg (241.3 mg magnesium) tablet Take 1 tablet by mouth once daily for 7 days. potassium chloride ER (KLOR-CON) 20 mEq tablet Take 1 tablet by mouth once daily for 7 days. loperamide (IMODIUM) 2 mg cap(s) Take 1 capsule by mouth four times a day as needed for up to 7 days. spironolactone (ALDACTONE) 25 mg tablet Take 1 tablet by mouth once daily. From Dr. Desai. amLODIPine (NORVASC) 10 mg tablet Take 1 tablet by mouth once daily. gabapentin (NEURONTIN) 300 mg capsule Take 1 capsule by mouth daily at bedtime for 180 days. gabapentin (NEURONTIN) 100 mg capsule Take 1 capsule by mouth every morning for 60 days. metoprolol tartrate, short acting, (LOPRESSOR) 50 mg tablet Take 1 tablet by mouth two times a day. chlorthalidone (HYGROTON) 25 mg tablet Take 1 tablet by mouth once daily. albuterol HFA (VENTOLIN HFA) 90 mcg/actuation inhaler Inhale 2 Puffs as instructed every 4 hours as needed for wheezing/shortness of breath. umeclidinium-vilanterol (ANORO ELLIPTA) 62.5-25 mcg/actuation inhale (more content not included)... [facility] 07-28-2024 Note HNO ID: [id number] Author: ASHIA OWEN RN Service: ? Author Type: Registered Nurse Type: Progress Notes Filed: 07/28/2024 15:28 Note Text: ED Follow-Up Note Provider Action / FYI: Outreach was completed via telephone regarding the patient?s recent [facility] ED visit. Member denies any concerning symptoms or current medical or social needs. The patient was encouraged to contact their primary care provider (PCP) to schedule a follow up appointment and ask any questions related to their ongoing care within 7 days of the ED visit. Patient stated understanding. Call completed by: RN Patient seen in ED: Out of Network ED Contact made with Patient: Yes The patient was identified by Name and Date of . Discussed Care with: patient Patient was seen in the Emergency Department (ED) Location: [facility] on 07/25/24 and [facility] on 07/27 Date: 07/25 and 07/27 Reason for ED Visit: Diarrhea x 2 weeks ED Intervention: per pt no interventions @ [facility]. Diarrhea not resolved so went to [facility] 07/27/24 and tx with Imodium.Also given a dose of mg and k Labs in er mg 1.5 k 2.9 New Medications: Imodium 2mg 4 times daily as need for diarrhea Mg oxide 400mg po daily x 1 week, Potassium Chloride 20meq daily x 7 days Medication Changes: see above Does patient understand medication changes: Yes Daughter picked up meds Can patient afford medication changes: Yes Patient educated on worsening symptoms and when and where to seek additional care: Yes Patient Education Provided including treatment plan and new orders. Patient provided with appropriate counseling: Yes Based on office clerk routine, the following disposition is advised: No symptoms or symptoms present, not severe. Routed to: No Action Needed LEX Education Provided this Outreach: No Initially went to er @ [facility] as is located down the street from him. Voiced his frustration with care @ [facility] and felt was not improving so then went to [facility] Today had small amt diarrhea in am.Took some imodium and resolved.Denies abd pain.Denies blood in stool Today ate a turkey sandwich and is staying hydrated Sched to see pcp on 08/10 Ashia Owen RN July 28, 2024 3:23 PM [facility] 07-28-2024 History of Present illness Narrative ED Follow-Up Note Provider Action / FYI: Outreach was completed via telephone regarding the patient s recent [facility] ED visit. Member denies any concerning symptoms or current medical or social needs. The patient was encouraged to contact their primary care provider (PCP) to schedule a follow up appointment and ask any questions related to their ongoing care within 7 days of the ED visit. Patient stated understanding. Call completed by: RN Patient seen in ED: Out of Network ED Contact made with Patient: Yes The patient was identified by Name and Date of . Discussed Care with: patient Patient was seen in the Emergency Department (ED) Location: [facility] on 07/25/24 and [facility] on 07/27 Date: 07/25 and 07/27 Reason for ED Visit: Diarrhea x 2 weeks ED Intervention: per pt no interventions @ [facility]. Diarrhea not resolved so went to [facility] 07/27/24 and tx with Imodium.Also given a dose of mg and k Labs in er mg 1.5 k 2.9 New Medications: Imodium 2mg 4 times daily as need for diarrhea Mg oxide 400mg po daily x 1 week, Potassium Chloride 20meq daily x 7 days Medication Changes: see above Does patient understand medication changes: Yes Daughter picked up meds Can patient afford medication changes: Yes Patient educated on worsening symptoms and when and where to seek additional care: Yes Patient Education Provided including treatment plan and new orders. Patient provided with appropriate counseling: Yes Based on office clerk routine, the following disposition is advised: No symptoms or symptoms present, not severe. Routed to: No Action Needed LEX Education Provided this Outreach: No Initially went to er @ [facility] as is located down the street from him. Voiced his frustration with care @ [facility] and felt was not improving so then went to [facility] Today had small amt diarrhea in am.Took some imodium and resolved.Denies abd pain.Denies blood in stool Today ate a turkey sandwich and is staying hydrated Sched to see pcp on 08/10 Ashia Owen RN July 28, 2024 3:23 PM documented in this encounter [facility] 07-28-2024 Note Patient Outreach ([facility] [place]) TYE VAZQUEZ ([id number]) 1940 M Date Time Provider Department 07/28/24 ASHIA OWEN During your visit today, we recorded the following information about you: Ashia Owen RN 07/28/2024 3:28 PM Signed ED Follow-Up Note Provider Action / FYI: Outreach was completed via telephone regarding the patient?s recent [facility] ED visit. Member denies any concerning symptoms or current medical or social needs. The patient was encouraged to contact their primary care provider (PCP) to schedule a follow up appointment and ask any questions related to their ongoing care within 7 days of the ED visit. Patient stated understanding. Call completed by: RN Patient seen in ED: Out of Network ED Contact made with Patient: Yes The patient was identified by Name and Date of . Discussed Care with: patient Patient was seen in the Emergency Department (ED) Location: [facility] on 07/25/24 and [facility] on 07/27 Date: 07/25 and 07/27 Reason for ED Visit: Diarrhea x 2 weeks ED Intervention: per pt no interventions @ [facility]. Diarrhea not resolved so went to [facility] 07/27/24 and tx with Imodium.Also given a dose of mg and k Labs in er mg 1.5 k 2.9 New Medications: Imodium 2mg 4 times daily as need for diarrhea Mg oxide 400mg po daily x 1 week, Potassium Chloride 20meq daily x 7 days Medication Changes: see above Does patient understand medication changes: Yes Daughter picked up meds Can patient afford medication changes: Yes Patient educated on worsening symptoms and when and where to seek additional care: Yes Patient Education Provided including treatment plan and new orders. Patient provided with appropriate counseling: Yes Based on office clerk routine, the following disposition is advised: No symptoms or symptoms present, not severe. Routed to: No Action Needed LEX Education Provided this Outreach: No Initially went to er @ [facility] as is located down the street from him. Voiced his frustration with care @ [facility] and felt was not improving so then went to [facility] Today had small amt diarrhea in am.Took some imodium and resolved.Denies abd pain.Denies blood in stool Today ate a turkey sandwich and is staying hydrated Sched to see pcp on 08/10 Ashia Owen RN July 28, 2024 3:23 PM Allergies As of Date: 07/28/2024 (No Known Allergies) Date Reviewed: 07/27/2024 Reviewed by: Rubio Hartman, RN - Fully Assessed Reason for Visit: ACM SUSHANT RN [[id number]] Cmt: ER outreach f/u Prescriptions as of 07/28/2024 - magnesium oxide (MAGOX) 400 mg (241.3 mg magnesium) tablet Take 1 tablet by mouth once daily for 7 days. - potassium chloride ER (KLOR-CON) 20 mEq tablet Take 1 tablet by mouth once daily for 7 days. - loperamide (IMODIUM) 2 mg cap(s) Take 1 capsule by mouth four times a day as needed for up to 7 days. - spironolactone (ALDACTONE) 25 mg tablet Take 1 tablet by mouth once daily. From Dr. Desai. - amLODIPine (NORVASC) 10 mg tablet Take 1 tablet by mouth once daily. - gabapentin (NEURONTIN) 300 mg capsule Take 1 capsule by mouth daily at bedtime for 180 days. - gabapentin (NEURONTIN) 100 mg capsule Take 1 capsule by mouth every morning for 60 days. - metoprolol tartrate, short acting, (LOPRESSOR) 50 mg tablet Take 1 tablet by mouth two times a day. - chlorthalidone (HYGROTON) 25 mg tablet Take 1 tablet by mouth once daily. - albuterol HFA (VENTOLIN HFA) 90 mcg/actuation inhaler Inhale 2 Puffs as instructed every 4 hours as needed for wheezing/shortness of breath. - umeclidinium-vilanterol (ANORO ELLIPTA) 62.5-25 mcg/actuation inhaler Inhale 1 Inhalation as instructed once daily. - doxazosin (CARDURA) 4 mg tablet Take 1 tablet by mouth daily at bedtime. Added to 8 mg tablet. - doxazosin (CARDURA) 8 mg tablet Take 1 tablet by mouth daily at bedtime. - lisinopril (ZESTRIL) 40 mg tablet Take 1 tablet by mouth once daily. - omeprazole (PRILOSEC) 20 mg capsule Take 1 capsule by mouth once daily. - acetaminophen (TYLENOL) 325 mg tablet Take 2 tablets by mouth every 4 hours as needed. Problem List As Of Date 07/28/2024 Noted Resolved Dermatophytosis of foot [B35.3] 11/27/2005 06/14/2017 Esophageal reflux [K21.9] 08/29/2006 HYPERTENSION NOS [I10] 09/02/2006 03/29/2014 Mixed hyperlipidemia [E78.2] 09/02/2006 Ganglion of tendon sheath [M67.40] 03/19/2007 11/07/2016 Unspecified disorder of prostate [N42.9] 06/21/2007 09/06/2014 Inguinal hernia without mention of obstruction *10/11/2008 11/07/2016 Umbilical hernia without mention of obstruction*10/11/2008 11/07/2016 Rotator cuff (capsule) sprain [S43.429A] 09/20/2009 11/07/2016 Malignant neoplasm of prostate (HCC) [C61] 02/07/2010 11/07/2016 Benign neoplasm of rectum and anal canal [D12.8*05/15/2010 Tobacco use disorder [F17.200] 05/23/2010 Frequency of urination [R35.0] 12 (more content not included)... [facility] 07-16-2024 Instructions Talon Bolaños MD - 07/16/2024 7:30 PM EDT Screening schedule The following prevention plan is recommended: RSV Vaccine(1 - 1-dose 75+ series) Never done Shingrix Vaccine(2 of 3) due on 09/17/2015 DTaP,Tdap,Td Vaccine(2 - Td or Tdap) due on 08/09/2021 Influenza Vaccine(1) due on 06/14/2024 Covid-19 Vaccine(3 - 2023- season) due on 06/14/2024 WHAT YOU CAN DO TO PREVENT FALLS Many falls can be prevented. By making some changes, you can lower your chances of falling. Four things YOU can do to prevent falls for you* and your caregiver 1. Begin a regular exercise program Exercise is one of the most important ways to lower your chances of falling. It makes you stronger and helps you feel better. Exercises that improve balance and coordination (like Justus Chi) are the most helpful. Lack of exercise leads to weakness and increases your chances of falling. Ask your doctor or health care provider about the best type of exercise program for you. 2. Have your health care provider review your medicines Have your doctor or pharmacist review all the medicines you take, even [id number] medicines. As you get older, the way medicines work in your body can change. Some medicines, or combinations of medicines, can make you sleepy or dizzy and can cause you to fall. 3. Have your vision checked Have your eyes checked by an eye doctor at least once a year. You may be wearing the wrong glasses or have a condition like glaucoma or cataracts that limits your vision. Poor vision can increase your chances of falling. 4. Make your home safer About half of all falls happen at home. To make your home safer: Remove things you can trip over (like papers, books, clothes, and shoes) from stairs and places where you walk. Remove small throw rugs or use double-sided tape to keep the rugs from slipping. Keep items you use often in cabinets you can reach easily without using a step stool. Have grab bars put in next to your toilet and in the tub or shower. Use non-slip mats in the bathtub and on shower floors. Improve the lighting in your home. As you get older, you need brighter lights to see well. Hang light-weight curtains or shades to reduce glare. Have handrails and lights put in on all staircases. Wear shoes both inside and outside the house. Avoid going barefoot or wearing slippers. For more information, contact: Centers for Disease Control and Prevention www.cdc.gov/injury * This information may not apply if you have certain medical conditions. documented in this encounter [facility] 07-16-2024 Note HNO ID: [id number] Author: TALON BOLAÑOS MD Service: ? Author Type: Physician Type: Progress Notes Filed: 07/16/2024 22:40 Note Text: This note was created using [employer]. Subjective Tye Vazquez was here for follow up. His hypertension was not controlled. His individual pension adviser stopped potassium and added aldactone. He stated he was taking amlodipine, but this was not visible on medication reconciliation. He just had a CT scan of his lumbar spine per Dr. Tyson, pain management. He will be having back injections. Review of Systems Constitutional: Negative for appetite change, fatigue, fever and unexpected weight change. HENT: Negative. Respiratory: Negative for cough and shortness of breath. Cardiovascular: Negative for chest pain, palpitations and leg swelling. Gastrointestinal: Negative for abdominal pain, constipation, diarrhea, nausea and vomiting. Genitourinary: Negative for difficulty urinating and dysuria. Musculoskeletal: Positive for back pain. Negative for gait problem. Neurological: Negative for dizziness, weakness, numbness and headaches. ACTIVE PROBLEM LIST Esophageal Reflux Mixed Hyperlipidemia Benign Neoplasm of Rectum and Anal Canal Tobacco Use Disorder History of Prostate Cancer Essential Hypertension Ddd (Degenerative Disc Disease), Lumbar Pad (Peripheral Artery Disease) (Hcc) Other Insomnia Incomplete Rbbb Sinus Bradycardia Peripheral Neuropathy Psoriasis Copd (Chronic Obstructive Pulmonary Disease) (Hcc) Chronic Respiratory Failure With Hypoxia (Hcc) Social History Tobacco Use Smoking status: Every Day Current packs/day: 0.50 Average packs/day: 0.5 packs/day for 63.4 years (31.7 ttl pk-yrs) Types: Cigarettes Start date: 02/22/1961 Smokeless tobacco: Never Vaping Use Vaping status: Never Used Substance Use Topics Alcohol use: Yes Alcohol/week: 7.0 standard drinks of alcohol Types: 7 Glasses of Wine (5oz) per week Drug use: No Current Outpatient Medications Medication Sig gabapentin (NEURONTIN) 300 mg capsule Take 1 capsule by mouth daily at bedtime for 180 days. metoprolol tartrate, short acting, (LOPRESSOR) 50 mg tablet Take 1 tablet by mouth two times a day. chlorthalidone (HYGROTON) 25 mg tablet Take 1 tablet by mouth once daily. albuterol HFA (VENTOLIN HFA) 90 mcg/actuation inhaler Inhale 2 Puffs as instructed every 4 hours as needed for wheezing/shortness of breath. umeclidinium-vilanterol (ANORO ELLIPTA) 62.5-25 mcg/actuation inhaler Inhale 1 Inhalation as instructed once daily. doxazosin (CARDURA) 4 mg tablet Take 1 tablet by mouth daily at bedtime. Added to 8 mg tablet. doxazosin (CARDURA) 8 mg tablet Take 1 tablet by mouth daily at bedtime. lisinopril (ZESTRIL) 40 mg tablet Take 1 tablet by mouth once daily. omeprazole (PRILOSEC) 20 mg capsule Take 1 capsule by mouth once daily. acetaminophen (TYLENOL) 325 mg tablet Take 2 tablets by mouth every 4 hours as needed. spironolactone (ALDACTONE) 25 mg tablet Take 1 tablet by mouth once daily. From Dr. Desai. amLODIPine (NORVASC) 10 mg tablet Take 1 tablet by mouth once daily. gabapentin (NEURONTIN) 100 mg capsule Take 1 capsule by mouth every morning for 60 days. No current facility-administered medications for this visit. Objective BP (!) 182/6 (BP Site: Left Arm, BP Position: Sitting, BP Cuff Size: Large Adult) Pulse 65 Temp 36.6 ?C (97.9 ?F) (Temporal) Resp 20 Ht 163.2 cm (5' 4.25 ) Wt 66.2 kg (145 lb 15.1 oz) SpO2 96% BMI 24.86 kg/m? Physical Exam Constitutional: General: He is not in acute distress. HENT: Head: Normocephalic. Eyes: General: No scleral icterus. Extraocular Movements: Extraocular movements intact. Conjunctiva/sclera: Conjunctivae normal. Cardiovascular: Rate and Rhythm: Normal rate and regular rhythm. Heart sounds: No murmur heard. No gallop. Pulmonary: Effort: No respiratory distress. Breath sounds: Rhonchi present. No wheezing or rales. Abdominal: General: There is no distension. Palpations: Abdomen is soft. Tenderness: There is no abdominal tenderness. Musculoskeletal: Right lower leg: No edema. Left lower leg: No edema. Neurological: General: No focal deficit present. Mental Status: He is alert. Gait: Gait abnormal. Assessment and Plan 1. Medicare annual wellness visit, subsequent - ICD9: V70.0, ICD10: Z00.00 (primary diagnosis) - See wellness note. 2. Screening for depression - ICD9: V79.0, ICD10: Z13.31 - DEPRESSION SCREENING 3. Encounter for screening examination for other mental health and behavioral disorders - ICD9: V79.8, ICD10: Z13.39 - ANXIETY SCREENING 4. Mixed hyperlipidemia - ICD9: 272.2, ICD10: E78.2 - Control undetermined, due for labs - Continue current medications - Counseled on healthy diet and regular exercise 5. Tobacco use disorder - ICD9: 305.1, ICD10: F17.200 - Cessation encouraged. 6. Essential hypertension - ICD9: 401.9, (more content not included)... [facility] 07-16-2024 History of Present illness Narrative This note was created using [employer]. Subjective Tye Vazquez was here for follow up. His hypertension was not controlled. His individual pension adviser stopped potassium and added aldactone. He stated he was taking amlodipine, but this was not visible on medication reconciliation. He just had a CT scan of his lumbar spine per Dr. Tyson, pain management. He will be having back injections. Review of Systems Constitutional: Negative for appetite change, fatigue, fever and unexpected weight change. HENT: Negative. Respiratory: Negative for cough and shortness of breath. Cardiovascular: Negative for chest pain, palpitations and leg swelling. Gastrointestinal: Negative for abdominal pain, constipation, diarrhea, nausea and vomiting. Genitourinary: Negative for difficulty urinating and dysuria. Musculoskeletal: Positive for back pain. Negative for gait problem. Neurological: Negative for dizziness, weakness, numbness and headaches. ACTIVE PROBLEM LIST Esophageal Reflux Mixed Hyperlipidemia Benign Neoplasm of Rectum and Anal Canal Tobacco Use Disorder History of Prostate Cancer Essential Hypertension Ddd (Degenerative Disc Disease), Lumbar Pad (Peripheral Artery Disease) (Hcc) Other Insomnia Incomplete Rbbb Sinus Bradycardia Peripheral Neuropathy Psoriasis Copd (Chronic Obstructive Pulmonary Disease) (Hcc) Chronic Respiratory Failure With Hypoxia (Hcc) Social History Tobacco Use Smoking status: Every Day Current packs/day: 0.50 Average packs/day: 0.5 packs/day for 63.4 years (31.7 ttl pk-yrs) Types: Cigarettes Start date: 02/22/1961 Smokeless tobacco: Never Vaping Use Vaping status: Never Used Substance Use Topics Alcohol use: Yes Alcohol/week: 7.0 standard drinks of alcohol Types: 7 Glasses of Wine (5oz) per week Drug use: No Current Outpatient Medications Medication Sig gabapentin (NEURONTIN) 300 mg capsule Take 1 capsule by mouth daily at bedtime for 180 days. metoprolol tartrate, short acting, (LOPRESSOR) 50 mg tablet Take 1 tablet by mouth two times a day. chlorthalidone (HYGROTON) 25 mg tablet Take 1 tablet by mouth once daily. albuterol HFA (VENTOLIN HFA) 90 mcg/actuation inhaler Inhale 2 Puffs as instructed every 4 hours as needed for wheezing/shortness of breath. umeclidinium-vilanterol (ANORO ELLIPTA) 62.5-25 mcg/actuation inhaler Inhale 1 Inhalation as instructed once daily. doxazosin (CARDURA) 4 mg tablet Take 1 tablet by mouth daily at bedtime. Added to 8 mg tablet. doxazosin (CARDURA) 8 mg tablet Take 1 tablet by mouth daily at bedtime. lisinopril (ZESTRIL) 40 mg tablet Take 1 tablet by mouth once daily. omeprazole (PRILOSEC) 20 mg capsule Take 1 capsule by mouth once daily. acetaminophen (TYLENOL) 325 mg tablet Take 2 tablets by mouth every 4 hours as needed. spironolactone (ALDACTONE) 25 mg tablet Take 1 tablet by mouth once daily. From Dr. Desai. amLODIPine (NORVASC) 10 mg tablet Take 1 tablet by mouth once daily. gabapentin (NEURONTIN) 100 mg capsule Take 1 capsule by mouth every morning for 60 days. No current facility-administered medications for this visit. Objective BP (!) 182/6 (BP Site: Left Arm, BP Position: Sitting, BP Cuff Size: Large Adult) Pulse 65 Temp 36.6 C (97.9 F) (Temporal) Resp 20 Ht 163.2 cm (5' 4.25 ) Wt 66.2 kg (145 lb 15.1 oz) SpO2 96% BMI 24.86 kg/m Physical Exam Constitutional: General: He is not in acute distress. HENT: Head: Normocephalic. Eyes: General: No scleral icterus. Extraocular Movements: Extraocular movements intact. Conjunctiva/sclera: Conjunctivae normal. Cardiovascular: Rate and Rhythm: Normal rate and regular rhythm. Heart sounds: No murmur heard. No gallop. Pulmonary: Effort: No respiratory distress. Breath sounds: Rhonchi present. No wheezing or rales. Abdominal: General: There is no distension. Palpations: Abdomen is soft. Tenderness: There is no abdominal tenderness. Musculoskeletal: Right lower leg: No edema. Left lower leg: No edema. Neurological: General: No focal deficit present. Mental Status: He is alert. Gait: Gait abnormal. Assessment and Plan 1. Medicare annual wellness visit, subsequent - ICD9: V70.0, ICD10: Z00.00 (primary diagnosis) - See wellness note. 2. Screening for depression - ICD9: V79.0, ICD10: Z13.31 - DEPRESSION SCREENING 3. Encounter for screening examination for other mental health and behavioral disorders - ICD9: V79.8, ICD10: Z13.39 - ANXIETY SCREENING 4. Mixed hyperlipidemia - ICD9: 272.2, ICD10: E78.2 - Control undetermined, due for labs - Continue current medications - Counseled on healthy diet and regular exercise 5. Tobacco use disorder - ICD9: 305.1, ICD10: F17.200 - Cessation encouraged. 6. Essential hypertension - ICD9: 401.9, ICD10: I10 - Uncontrolled - Continue current medications - SPIRONOLACTONE 25 MG TABLET - AMLODIPINE 10 MG TABLET 7. Degeneration of intervertebral disc of lumbar region, unspecified whether pain present - ICD9: 722.52, ICD10: M51.369 - Seeing [facility] at [facility]. 8. Chronic obstructive pulmonary disease, unspecified COPD type (HCC) - ICD9: 496, ICD10: J44.9 - Stable. 9. Need for influenza vaccination - ICD9: V04.81, ICD10: Z23 - INFLUENZA VACCINE, PRSV FREE, AGE 65+ YR, HIGH DOSE, TRIVALENT (FLUZONE HIGH-DOSE) - Covid booster declined. 10. PAD (peripheral artery disease) (HCC) - ICD9: 443.9, ICD10: I73.9 - Stable. Talon Bolaños MD Images from the original note were not included. Tye Vazquez is a 84 year old male here for a Medicare wellness visit. Medicare Health Risk Assessment General Health Fair Exercise: Minutes/Day 0 min Exercise: Days/Week 0 days Alcohol: Daily Use 4 or more times a week Alcohol: Drinks/Day 1 or 2 Alcohol: 6 or more drinks Never Feel off balance No Concerns: Teeth/Dentures No Concerns: Sexual function No Troubled by feelings None of the above Frequency: Eating healthy diet Nearly every day ADLs requiring help Housework Safety precautions in home/vehicle Yes Smoke, vape, chews tobacco Yes, but I'm not ready to quit Difficulty hearing Yes Difficulty seeing No Current Providers Specialists: I have reviewed specialist-related care of the patient in the medical record. Current care team: Patient Care Team: Talon Bolaños MD as PCP - General (Internal Medicine) Laverne Juarez MD (Pulmonary) Outside specialists seen: Lorne Tyson MD (Pain Management) Abdirizak Mosquera MD (Vascular Surgery) Champ Desai MD (Nephrology) [facility]. Medical/Family history review Reviewed and updated problem list, medical/surgical/family/social history, medications, and allergies. Opioid use review Opioid Medications (last 90 days) No data to display Anxiety/Depression screening PHQ-2 Score: 0 (Lower risk for depression) KODI-2 Score: 0 (Lower risk for anxiety) Recommendation: no further intervention at this time Cognitive screening Cognitive screening reviewed and No further action needed (score 3-5). Functional Observation Was the patient's Timed Up & Go test unsteady or >= 12 seconds? No Advance Care Planning Surrogate decision maker documented and/or advance directives scanned in chart Measurements BP (!) 182/6 (BP Site: Left Arm, BP Position: Sitting, BP Cuff Size: Large Adult) Pulse 65 Temp 36.6 C (97.9 F) (Temporal) Resp 20 Ht 163.2 cm (5' 4.25 ) Wt 66.2 kg (145 lb 15.1 oz) SpO2 96% BMI 24.86 kg/m Vision Screening: Follows with optometry/ophthalmology Right: 20/50 Left: 20/ 25 Both: 20/20 Assessment/Plan Medicare annual wellness visit, subsequent (Z00.00) - Counseled on healthy diet and regular exercise - Fall avoidance information provided - Personalized prevention plan provided - Smoking cessation encouraged; discussed risks to health and quitting strategies. Patient is not ready to quit BP Manual readin/64 Pulse: 63 LEFT arm LARGE cuff BP Eliza Average: 182/64 Pulse: 65 LEFT arm LARGE cuff 1. 179/78 Pulse: 65 2. 187/72 Pulse: 65 3. 178/51 Pulse: 65 4. 180/69 Pulse: 65 BP EILZA AVERAGE: 182/64 Pulse: 65 documented in this encounter [facility] 07-16-2024 Note HNO ID: [id number] Author: TALON BOLAÑOS MD Service: ? Author Type: Physician Type: Progress Notes Filed: 07/16/2024 22:40 Note Text: Tye Vazquez is a 84 year old male here for a Medicare wellness visit. Medicare Health Risk Assessment General Health Fair Exercise: Minutes/Day 0 min Exercise: Days/Week 0 days Alcohol: Daily Use 4 or more times a week Alcohol: Drinks/Day 1 or 2 Alcohol: 6 or more drinks Never Feel off balance No Concerns: Teeth/Dentures No Concerns: Sexual function No Troubled by feelings None of the above Frequency: Eating healthy diet Nearly every day ADLs requiring help Housework Safety precautions in home/vehicle Yes Smoke, vape, chews tobacco Yes, but I'm not ready to quit Difficulty hearing Yes Difficulty seeing No Current Providers Specialists: I have reviewed specialist-related care of the patient in the medical record. Current care team: Patient Care Team: Talon Bolaños MD as PCP - General (Internal Medicine) Laverne Juarez MD (Pulmonary) Outside specialists seen: Lorne Tyson MD (Pain Management) Abdirizak Mosquera MD (Vascular Surgery) Champ Desai MD (Nephrology) [facility]. Medical/Family history review Reviewed and updated problem list, medical/surgical/family/social history, medications, and allergies. Opioid use review Opioid Medications (last 90 days) No data to display Anxiety/Depression screening PHQ-2 Score: 0 (Lower risk for depression) KODI-2 Score: 0 (Lower risk for anxiety) Recommendation: no further intervention at this time Cognitive screening Cognitive screening reviewed and No further action needed (score 3-5). Functional Observation Was the patient's Timed Up AND Go test unsteady or >= 12 seconds? No Advance Care Planning Surrogate decision maker documented and/or advance directives scanned in chart Measurements BP (!) 182/6 (BP Site: Left Arm, BP Position: Sitting, BP Cuff Size: Large Adult) Pulse 65 Temp 36.6 ?C (97.9 ?F) (Temporal) Resp 20 Ht 163.2 cm (5' 4.25 ) Wt 66.2 kg (145 lb 15.1 oz) SpO2 96% BMI 24.86 kg/m? Vision Screening: Follows with optometry/ophthalmology Right: 20/50 Left: 20/ 25 Both: 20/20 Assessment/Plan Medicare annual wellness visit, subsequent (Z00.00) - Counseled on healthy diet and regular exercise - Fall avoidance information provided - Personalized prevention plan provided - Smoking cessation encouraged; discussed risks to health and quitting strategies. Patient is not ready to quit [facility] 07-16-2024 Note HNO ID: [id number] Author: CARLINE JARVIS MA Service: ? Author Type: Corporate Job Titles Type: Progress Notes Filed: 07/16/2024 19:14 Note Text: BP Manual readin/64 Pulse: 63 LEFT arm LARGE cuff BP Eliza Average: 182/64 Pulse: 65 LEFT arm LARGE cuff 1. 179/78 Pulse: 65 2. 187/72 Pulse: 65 3. 178/51 Pulse: 65 4. 180/69 Pulse: 65 BP ELIZA AVERAGE: 182/64 Pulse: 65 [facility] 04-10-2024 Note HNO ID: [id number] Author: ?, ?, ? Service: ? Author Type: ? Type: Progress Notes Filed: 04/10/2024 10:24 Note Text: POPULATION HEALTH NAVIGATION OUTREACH Action/FYI Medication adherence list for below med: LISINOPRIL 40 MG TABLET- last fill date 01-10-24, 90 day supply Next fill date 04-11-24, 90 day supply Outcome- spoke to patients daughter regarding reminder for medication due or refill. Will call pharmacy Reason for Outreach Med Adherence Patient Contacted: Spoke to patient/parent/or legal guardian Patient identified by name and date of : Yes Med Adherence actions taken: Patient Med Adherence responses: Patient will notify Pharmacy Navigation Signature: Kyra Spain Population Health Navigator April 10, 2024 9:55 AM [facility] 04-10-2024 History of Present illness Narrative POPULATION HEALTH NAVIGATION OUTREACH Action/FYI Medication adherence list for below med: LISINOPRIL 40 MG TABLET- last fill date 01-10-24, 90 day supply Next fill date 04-11-24, 90 day supply Outcome- spoke to patients daughter regarding reminder for medication due or refill. Will call pharmacy Reason for Outreach Med Adherence Patient Contacted: Spoke to patient/parent/or legal guardian Patient identified by name and date of : Yes Med Adherence actions taken: Patient Med Adherence responses: Patient will notify Pharmacy Navigation Signature: Kyra Spain Population Health Navigator April 10, 2024 9:55 AM documented in this encounter [facility] 04-10-2024 Note Patient Outreach (MIRA TORRESAV) TYE VAZQUEZ ([id number]) 1940 M Date Time Provider Department 04/10/24 KYRA SPAIN During your visit today, we recorded the following information about you: Judit Population Health NavigatorKyra 04/10/2024 10:24 AM Signed POPULATION HEALTH NAVIGATION OUTREACH Action/ Medication adherence list for below med: LISINOPRIL 40 MG TABLET- last fill date 01-10-24, 90 day supply Next fill date 04-11-24, 90 day supply Outcome- spoke to patients daughter regarding reminder for medication due or refill. Will call pharmacy Reason for Outreach Med Adherence Patient Contacted: Spoke to patient/parent/or legal guardian Patient identified by name and date of : Yes Med Adherence actions taken: Patient Med Adherence responses: Patient will notify Pharmacy Navigation Signature: Kyra Spain Population Health Navigator April 10, 2024 9:55 AM Allergies As of Date: 04/10/2024 (No Known Allergies) Date Reviewed: 03/11/2024 Reviewed by: Abdiel Layne MA - Fully Assessed Reason for Visit: Population Health Navigation Outreach [3910] Cmt: Med adherence Prescriptions as of 04/10/2024 - potassium chloride (K-TAB) 10 mEq tablet Take 2 tablets by mouth daily with breakfast. - gabapentin (NEURONTIN) 300 mg capsule Take 1 capsule by mouth daily at bedtime for 180 days. - gabapentin (NEURONTIN) 100 mg capsule Take 1 capsule by mouth every morning for 60 days. - amLODIPine (NORVASC) 10 mg tablet Take 1 tablet by mouth once daily. - metoprolol tartrate, short acting, (LOPRESSOR) 50 mg tablet Take 1 tablet by mouth two times a day. - chlorthalidone (HYGROTON) 25 mg tablet Take 1 tablet by mouth once daily. - albuterol HFA (VENTOLIN HFA) 90 mcg/actuation inhaler Inhale 2 Puffs as instructed every 4 hours as needed for wheezing/shortness of breath. - umeclidinium-vilanterol (ANORO ELLIPTA) 62.5-25 mcg/actuation inhaler Inhale 1 Inhalation as instructed once daily. - doxazosin (CARDURA) 4 mg tablet Take 1 tablet by mouth daily at bedtime. Added to 8 mg tablet. - doxazosin (CARDURA) 8 mg tablet Take 1 tablet by mouth daily at bedtime. - lisinopril (ZESTRIL) 40 mg tablet Take 1 tablet by mouth once daily. - omeprazole (PRILOSEC) 20 mg capsule Take 1 capsule by mouth once daily. - acetaminophen (TYLENOL) 325 mg tablet Take 2 tablets by mouth every 4 hours as needed. Problem List As Of Date 04/10/2024 Noted Resolved Dermatophytosis of foot [B35.3] 11/27/2005 06/14/2017 Esophageal reflux [K21.9] 08/29/2006 HYPERTENSION NOS [I10] 09/02/2006 03/29/2014 Mixed hyperlipidemia [E78.2] 09/02/2006 Ganglion of tendon sheath [M67.40] 03/19/2007 11/07/2016 Unspecified disorder of prostate [N42.9] 06/21/2007 09/06/2014 Inguinal hernia without mention of obstruction *10/11/2008 11/07/2016 Umbilical hernia without mention of obstruction*10/11/2008 11/07/2016 Rotator cuff (capsule) sprain [S43.429A] 09/20/2009 11/07/2016 Malignant neoplasm of prostate (HCC) [C61] 02/07/2010 11/07/2016 Benign neoplasm of rectum and anal canal [D12.8*05/15/2010 Tobacco use disorder [F17.200] 05/23/2010 Frequency of urination [R35.0] 10/02/2010 11/07/2016 History of prostate cancer [Z85.46] Diarrhea [R19.7] 12/05/2010 09/06/2014 Inguinal neuralgia [M79.2] 03/12/2013 11/07/2016 Rotator cuff impingement syndrome of right shou*04/10/2015 11/19/2019 Medicare annual wellness visit, subsequent [Z00*04/10/2015 06/20/2018 Right-sided low back pain with right-sided scia*10/03/2015 05/15/2016 Essential hypertension [I10] 10/16/2015 DDD (degenerative disc disease), lumbar [M51.36]11/07/2016 Clostridium difficile colitis [A04.72] 05/14/2017 06/20/2018 Inguinal hernia [K40.90] 01/20/2018 06/20/2018 Traumatic complete tear of left rotator cuff [S*11/03/2018 11/19/2019 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 *07/22/2019 11/01/2022 PAD (peripheral artery disease) (HCC) [I73.9] 09/21/2019 Other insomnia [G47.09] 09/22/2019 Anemia [D64.9] 09/24/2019 11/19/2019 Acute respiratory failure with hypoxia (HCC) [J*09/24/2019 11/19/2019 Leucocytosis [D72.829] 09/25/2019 11/19/2019 SDH (subdural hematoma) [S06.5XAA] 09/14/2020 11/01/2022 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] 09/15/2020 History of Clostridium difficile colitis [Z86.1*09/15/2020 11/01/2022 Sinus bradycardia [R00.1] 09/15/2020 Peripheral neuropathy [G62.9] 09/15/2020 Acute postoperative pain [G89.18] 09/20/2020 11/08/2020 Psoriasis [L40.9] 11/28/2020 Colitis [K52.9] 03/18/2022 11/01/2022 SHASHANK (acute kidney injury) (HCC) [N17.9] 03/18/2022 11/01/2022 COPD (chronic obstructive pulmonary disease) (H*08/13/2023 Chronic respiratory failure with hypoxia (HCC) *01/01/2024 Encounter Status:Closed by [facility] on 04/10/24 [facility] 03-11-2024 Note HNO ID: [id number] Author: PRECIOUS TEIXEIRA APRN.OLIVE PITTER Service: ? Author Type: Nurse Practitioner Type: Progress Notes Filed: 03/11/2024 14:07 Note Text: CC: Patient presents with: 4 week follow up - blood pressure HPI Tye Vazquez is a 84 year old male who presents today for above. HTN-Medication changes:Yes Norvasc increased to 10 mg daily Taking all medications as prescribed: Yes Side effects: No Home BP's: Yes 180's/90' Denies: headache, chest pain, palpitations, dyspnea, and peripheral edema. 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 Chronic respiratory failure with hypoxia (HCC) 01/01/2024 Clostridium difficile colitis 05/14/2017 COPD (chronic obstructive pulmonary disease) (HCC) 08/13/2023 DDD (degenerative disc disease), lumbar 11/07/2016 Diarrhea Esophageal reflux 08/29/2006 Essential hypertension, benign Inguinal hernia without mention of obstruction or gangrene, unilateral or unspecified, (not specified as recurrent) 10/11/2008 Mixed hyperlipidemia 09/02/2006 Nonspecific (abnormal) findings on radiological and other examination of abdominal area, including retroperitoneum PAD (peripheral artery disease) (HCC) Prostate cancer (HCC) 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. Traumatic subdural hematoma without loss of consciousness (HCC) 09/14/2020 Umbilical hernia without mention of obstruction or gangrene 10/11/2008 PAST SURGICAL HISTORY Procedure Laterality Date ARTHROPLASTY GLENOHUMRL JT HEMIARTHROPLASTY Right 1993 Arthroplasty, shoulder right x 2. 1991, 1993. COLONOSCOPY AND POLYPECTOMY 05/15/2010 tubular adenomas removed- [place] COLONOSCOPY DIAGNOSTIC 06/05/2022 sigmoid tubular adenoma COLONOSCOPY FLX DX W/COLLJ SPEC WHEN PFRMD 04/26/2014 Colonoscopy COLONOSCOPY FLX DX W/COLLJ SPEC WHEN PFRMD 05/07/2016 Colonoscopy EGD 05/04/2022 LAMINECTOMY W/O FFD > 2 VERT SEG LUMBAR 06/11/2018 [facility] PAST SURGICAL HISTORY OF 2001 bilat cataracts, retina PAST SURGICAL HISTORY OF Left 09/2019 femoral artery PAST SURGICAL HISTORY OF 09/14/2020 CRANIOTOMY FOR EVACUATION OF SUPRATENTORIAL SUBDURAL HEMATOMA RPR 1ST INGUN HRNA AGE 5 YRS/> REDUCIBLE 11/26/2008 left RPR 1ST INGUN HRNA AGE 5 YRS/> REDUCIBLE 01/20/2018 Hernia repair, inguinal right, indirect w/medium mesh plug [facility] RPR UMBILICAL HRNA 5 YRS/> REDUCIBLE 11/26/2008 SEED IMPLANT 05/2010 for prostate cancer SIGMOIDOSCOPY FLX DX W/COLLJ SPEC BR/WA IF PFRMD 12/05/2010 ALLERGIES Patient has no known allergies. MEDICATIONS potassium chloride (K-TAB) 10 mEq tablet Take 2 tablets by mouth daily with breakfast. gabapentin (NEURONTIN) 300 mg capsule Take 1 capsule by mouth daily at bedtime for 180 days. gabapentin (NEURONTIN) 100 mg capsule Take 1 capsule by mouth every morning for 60 days. amLODIPine (NORVASC) 10 mg tablet Take 1 tablet by mouth once daily. metoprolol tartrate, short acting, (LOPRESSOR) 50 mg tablet Take 1 tablet by mouth two times a day. chlorthalidone (HYGROTON) 25 mg tablet Take 1 tablet by mouth once daily. albuterol HFA (VENTOLIN HFA) 90 mcg/actuation inhaler Inhale 2 Puffs as instructed every 4 hours as needed for wheezing/shortness of breath. umeclidinium-vilanterol (ANORO ELLIPTA) 62.5-25 mcg/actuation inhaler Inhale 1 Inhalation as instructed once daily. doxazosin (CARDURA) 4 mg tablet Take 1 tablet by mouth daily at bedtime. Added to 8 mg tablet. doxazosin (CARDURA) 8 mg tablet Take 1 tablet by mouth daily at bedtime. lisinopril (ZESTRIL) 40 mg tablet Take 1 tablet by mouth once daily. omeprazole (PRILOSEC) 20 mg capsule Take 1 capsule by mouth once daily. acetaminophen (TYLENOL) 325 mg tablet Take 2 tablets by mouth every 4 hours as needed. FAMILY HISTORY Problem Relation Age of Onset Diabetes Brother skin cancer Prostate Cancer Brother Stroke Mother Blood Disease Father Coronary Artery Disease Brother other (Other) Brother paraplegia No Ocular Disease Other Social History Tobacco Use Smoking status: Every Day Packs/day: 0.50 Years: 62.00 Additional pack years: 0.00 Total pack years: 31.00 Types: Cigarettes Start date: [birth year]/22/1961 Smokeless tobacco: Never Tobacco comments: 5-6 per day. One ppd in past Able to quit for 5 years and 3 years Vaping Use Vaping Use: Never used Substance Use Topics Alcohol use: Yes Alcohol/week: 7.0 standard drinks of alcohol Types: 7 Glasses of Wine (5oz) per week Drug use: No BP 195/74 Pulse 65 Resp 22 Wt 68.5 kg (151 lb) SpO2 93% BMI 25.47 kg/m? Physical Exam Vitals reviewed. Constitutional: Appearance: Savita (more content not included)... [facility] 03-11-2024 History of Present illness Narrative CC: Patient presents with: 4 week follow up - blood pressure HPI Tye Vazquez is a 84 year old male who presents today for above. HTN-Medication changes:Yes Norvasc increased to 10 mg daily Taking all medications as prescribed: Yes Side effects: No Home BP's: Yes 180's/90' Denies: headache, chest pain, palpitations, dyspnea, and peripheral edema. 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 Chronic respiratory failure with hypoxia (HCC) 01/01/2024 Clostridium difficile colitis 05/14/2017 COPD (chronic obstructive pulmonary disease) (HCC) 08/13/2023 DDD (degenerative disc disease), lumbar 11/07/2016 Diarrhea Esophageal reflux 08/29/2006 Essential hypertension, benign Inguinal hernia without mention of obstruction or gangrene, unilateral or unspecified, (not specified as recurrent) 10/11/2008 Mixed hyperlipidemia 09/02/2006 Nonspecific (abnormal) findings on radiological and other examination of abdominal area, including retroperitoneum PAD (peripheral artery disease) (HCC) Prostate cancer ([facility]) 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. Traumatic subdural hematoma without loss of consciousness (HCC) 09/14/2020 Umbilical hernia without mention of obstruction or gangrene 10/11/2008 PAST SURGICAL HISTORY Procedure Laterality Date ARTHROPLASTY GLENOHUMRL JT HEMIARTHROPLASTY Right 1993 Arthroplasty, shoulder right x 2. 1991, 1993. COLONOSCOPY & POLYPECTOMY 05/15/2010 tubular adenomas removed- [place] COLONOSCOPY DIAGNOSTIC 06/05/2022 sigmoid tubular adenoma COLONOSCOPY FLX DX W/COLLJ SPEC WHEN PFRMD 04/26/2014 Colonoscopy COLONOSCOPY FLX DX W/COLLJ SPEC WHEN PFRMD 05/07/2016 Colonoscopy EGD 05/04/2022 LAMINECTOMY W/O FFD > 2 VERT SEG LUMBAR 06/11/2018 [facility] PAST SURGICAL HISTORY OF 2001 bilat cataracts, retina PAST SURGICAL HISTORY OF Left 09/2019 femoral artery PAST SURGICAL HISTORY OF 09/14/2020 CRANIOTOMY FOR EVACUATION OF SUPRATENTORIAL SUBDURAL HEMATOMA RPR 1ST INGUN HRNA AGE 5 YRS/> REDUCIBLE 11/26/2008 left RPR 1ST INGUN HRNA AGE 5 YRS/> REDUCIBLE 01/20/2018 Hernia repair, inguinal right, indirect w/medium mesh plug [facility] RPR UMBILICAL HRNA 5 YRS/> REDUCIBLE 11/26/2008 SEED IMPLANT 05/2010 for prostate cancer SIGMOIDOSCOPY FLX DX W/COLLJ SPEC BR/WA IF PFRMD 12/05/2010 ALLERGIES Patient has no known allergies. MEDICATIONS potassium chloride (K-TAB) 10 mEq tablet Take 2 tablets by mouth daily with breakfast. gabapentin (NEURONTIN) 300 mg capsule Take 1 capsule by mouth daily at bedtime for 180 days. gabapentin (NEURONTIN) 100 mg capsule Take 1 capsule by mouth every morning for 60 days. amLODIPine (NORVASC) 10 mg tablet Take 1 tablet by mouth once daily. metoprolol tartrate, short acting, (LOPRESSOR) 50 mg tablet Take 1 tablet by mouth two times a day. chlorthalidone (HYGROTON) 25 mg tablet Take 1 tablet by mouth once daily. albuterol HFA (VENTOLIN HFA) 90 mcg/actuation inhaler Inhale 2 Puffs as instructed every 4 hours as needed for wheezing/shortness of breath. umeclidinium-vilanterol (ANORO ELLIPTA) 62.5-25 mcg/actuation inhaler Inhale 1 Inhalation as instructed once daily. doxazosin (CARDURA) 4 mg tablet Take 1 tablet by mouth daily at bedtime. Added to 8 mg tablet. doxazosin (CARDURA) 8 mg tablet Take 1 tablet by mouth daily at bedtime. lisinopril (ZESTRIL) 40 mg tablet Take 1 tablet by mouth once daily. omeprazole (PRILOSEC) 20 mg capsule Take 1 capsule by mouth once daily. acetaminophen (TYLENOL) 325 mg tablet Take 2 tablets by mouth every 4 hours as needed. FAMILY HISTORY Problem Relation Age of Onset Diabetes Brother skin cancer Prostate Cancer Brother Stroke Mother Blood Disease Father Coronary Artery Disease Brother other (Other) Brother paraplegia No Ocular Disease Other Social History Tobacco Use Smoking status: Every Day Packs/day: 0.50 Years: 62.00 Additional pack years: 0.00 Total pack years: 31.00 Types: Cigarettes Start date: 02/22/1961 Smokeless tobacco: Never Tobacco comments: 5-6 per day. One ppd in past Able to quit for 5 years and 3 years Vaping Use Vaping Use: Never used Substance Use Topics Alcohol use: Yes Alcohol/week: 7.0 standard drinks of alcohol Types: 7 Glasses of Wine (5oz) per week Drug use: No BP 195/74 Pulse 65 Resp 22 Wt 68.5 kg (151 lb) SpO2 93% BMI 25.47 kg/m Physical Exam Vitals reviewed. Constitutional: Appearance: Normal appearance. Cardiovascular: Rate and Rhythm: Normal rate and regular rhythm. Pulmonary: Effort: Pulmonary effort is normal. Breath sounds: Normal breath sounds. Neurological: Mental Status: He is alert. Psychiatric: Mood and Affect: Mood normal. DATA REVIEWED: Most recent labs ASSESSMENT/PLAN: 1. Resistant hypertension - ICD9: 401.9, ICD10: I1A.0 (primary diagnosis) Patient is at maximum dose of anti-hypertensives except for Metoprolol however heart rate is too low to increase dose. - CONSULT TO NEPHROLOGY for further evaluation and recommendations. He prefers to stay local, will fax referral to [facility]. - follow-up in 4 months for medicare wellness or sooner if needed 2. Stage 3a chronic kidney disease (HCC) - ICD9: 585.3, ICD10: N18.31 - eGFR: 57 Worsening - Counseled on avoiding NSAIDs, adequate hydration - Counseled on low sodium diet - Follow up with kidney medicine - CONSULT TO NEPHROLOGY Prescription instructions reviewed with patient as applicable. Potential red flag symptoms discussed with the patient. Reviewed appropriate action plan to take if red flag symptoms occur. Patient agreeable to treatment plan. Precious Teixeira APRN.OLIVE PITTER documented in this encounter [facility] 03-11-2024 Evaluation note Diagnosis Resistant hypertension- Primary Stage 3a chronic kidney disease (HCC) documented in this encounter [facility]05-06-2024 Telephone encounter Note* Telephone Encounter - Jorge L Matias RN - 02/17/2024 11:00 AM EDT Pt returned call and given provider's message below with verbalized understanding. Patient agreeable. [facility]05-06-2024 Miscellaneous Notes* Telephone Encounter - Jorge L Matias RN - 02/17/2024 11:00 AM EDT Pt returned call and given provider's message below with verbalized understanding. Patient agreeable. * Telephone Encounter - Katarzyna Dutton LPN - 02/17/2024 8:45 AM EDT Left a message for pt to call the office and ask to speak to a nurse. Katarzyna Dutton LPN * Telephone Encounter - Katarzyna Dutton LPN - 02/17/2024 8:45 AM EDT ----- Message from Talon Bolaños MD sent at 02/17/2024 8:43 AM EDT ----- Test results are okay and stable, except potassium is low. Increase potassium to 2 tablets daily. [facility] Tele[facility] encounter Note * Telephone Encounter - Katarzyna Dutton LPN - 02/17/2024 8:45 AM EDT Left a message for pt to call the office and ask to speak to a nurse. Katarzyna Dutton LPN [facility]05-06-2024 Telephone encounter Note* Telephone Encounter - Katarzyna Dutton LPN - 02/17/2024 8:45 AM EDT ----- Message from Talon oBlaños MD sent at 02/17/2024 8:43 AM EDT ----- Test results are okay and stable, except potassium is low. Increase potassium to 2 tablets daily. [facility]05-01-2024 Instructions* Patient Instructions* Precious Teixeira APRN.MARIAH - 02/12/2024 12:31 PM EDT Increase amlodipine to 10 mg daily Start gabapentin 100 mg capsule in the morning, continue with 300 mg at bedtime documented in this encounterBarn[facility]24 NoteHNO ID: [id number] Author: PRECIOUS TEIXEIRA APRN.MARIAH Service: ? Author Type: Nurse Practitioner Type: Progress Notes Filed: 02/12/2024 13:26 Note Text: CC Patient presents with: Follow Up: Blood pressure HPI Tye Vazquez is a 83 year old male who presents to the office for blood pressure. His visit today is for follow-up. Patient was last seen for this approximately 3 weeks ago Medication changes: Yes Norvasc 5 mg daily resumed Taking all medications as prescribed: Yes Side effects: No Home BP's: Yes home readings are in the 160's/90's Denies: headache, chest pain, palpitations, dyspnea, and peripheral edema. Last 4 Encounter BP Readings: Date: BP: 02/12/2024 158/78 01/22/2024 190/82 01/01/2024 198/77 08/13/2023 136/92 Last 3 Encounter Wt Readings: Date: Wt: 02/12/2024 68 kg (150 lb) 01/22/2024 69.9 kg (154 lb) 01/01/2024 70.7 kg (155 lb 12.8 oz) Neuropathy- takes Gabapentin 300 mg at bedtime and is able to sleep. However he is in a lot of pain during the day, hard to do ADL's because of this. He can't tolerate the 300 mg dose during the day. Wondering what else can be done. Review of Systems See HPI 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 Chronic respiratory failure with hypoxia ([facility]) 01/01/2024 Clostridium difficile colitis 05/14/2017 COPD (chronic obstructive pulmonary disease) (HCC) 08/13/2023 DDD (degenerative disc disease), lumbar 11/07/2016 Diarrhea Esophageal reflux 08/29/2006 Essential hypertension, benign Inguinal hernia without mention of obstruction or gangrene, unilateral or unspecified, (not specified as recurrent) 10/11/2008 Mixed hyperlipidemia 09/02/2006 Nonspecific (abnormal) findings on radiological and other examination of abdominal area, including retroperitoneum PAD (peripheral artery disease) ([facility]) Prostate cancer ([facility]) 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. Traumatic subdural hematoma without loss of consciousness ([facility]) 09/14/2020 Umbilical hernia without mention of obstruction or gangrene 10/11/2008 PAST SURGICAL HISTORY Procedure Laterality Date ARTHROPLASTY GLENOHUMRL JT HEMIARTHROPLASTY Right 1993 Arthroplasty, shoulder right x 2. 1991, 1993. COLONOSCOPY AND POLYPECTOMY 05/15/2010 [place] adenomas [place] COLONOSCOPY DIAGNOSTIC 06/05/2022 sigmoid tubular adenoma COLONOSCOPY FLX DX W/COLLJ SPEC WHEN PFRMD 04/26/2014 Colonoscopy COLONOSCOPY FLX DX W/COLLJ SPEC WHEN PFRMD 05/07/2016 Colonoscopy EGD 05/04/2022 LAMINECTOMY W/O FFD > 2 VERT SEG LUMBAR 06/11/2018 [facility] PAST SURGICAL HISTORY OF 2002 bilat cataracts, retina PAST SURGICAL HISTORY OF Left 09/2019 femoral artery PAST SURGICAL HISTORY OF 09/14/2020 CRANIOTOMY FOR EVACUATION OF SUPRATENTORIAL SUBDURAL HEMATOMA RPR 1ST INGUN HRNA AGE 5 YRS/> REDUCIBLE 11/26/2008 left RPR 1ST INGUN HRNA AGE 5 YRS/> REDUCIBLE 01/20/2018 Hernia repair, inguinal right, indirect w/medium mesh plug [facility] RPR UMBILICAL HRNA 5 YRS/> REDUCIBLE 11/26/2008 SEED IMPLANT 05/2010 for prostate cancer SIGMOIDOSCOPY FLX DX W/COLLJ SPEC BR/WA IF PFRMD 12/05/2010 ALLERGIES Patient has no known allergies. MEDICATIONS amLODIPine (NORVASC) 5 mg tablet Take 1 tablet by mouth once daily. metoprolol tartrate, short acting, (LOPRESSOR) 50 mg tablet Take 1 tablet by mouth two times a day. chlorthalidone (HYGROTON) 25 mg tablet Take 1 tablet by mouth once daily. albuterol HFA (VENTOLIN HFA) 90 mcg/actuation inhaler Inhale 2 Puffs as instructed every 4 hours as needed for wheezing/shortness of breath. umeclidinium-vilanterol (ANORO ELLIPTA) 62.5-25 mcg/actuation inhaler Inhale 1 Inhalation as instructed once daily. doxazosin (CARDURA) 4 mg tablet Take 1 tablet by mouth daily at bedtime. Added to 8 mg tablet. doxazosin (CARDURA) 8 mg tablet Take 1 tablet by mouth daily at bedtime. lisinopril (ZESTRIL) 40 mg tablet Take 1 tablet by mouth once daily. potassium chloride (K-TAB) 10 mEq tablet Take 1 tablet by mouth daily with breakfast. gabapentin (NEURONTIN) 300 mg capsule Take 1 capsule by mouth daily at bedtime for 180 days. omeprazole (PRILOSEC) 20 mg capsule Take 1 capsule by mouth once daily. acetaminophen (TYLENOL) 325 mg tablet Take 2 tablets by mouth every 4 hours as needed. FAMILY HISTORY Problem Relation Age of Onset Diabetes Brother skin cancer Prostate Cancer Brother Stroke Mother Blood Disease Father Coronary Artery Disease Brother other (Other) Brother paraplegia No Ocular Disease Other Social History Tobacco Use Smoking status: Every Day Packs/day: 0.50 Years: 62.00 Additional pack years: 0.00 Total pack years: 31.00 Types: Cigarettes Start date: 02/22/1961 Smokeless tobacco: Never Tobacco comments: 5- (more content not included)...[facility]05-01-2024 History of Present illness Narrative* Precious Teixeira, 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 PITTER - 02/12/2024 12:14 PM EDT CC Patient presents with: Follow Up: Blood pressure HPI Tye Vzaquez is a 83 year old male who presents to the office for blood pressure. His visit todayis for follow-up. Patient was last seen for this approximately 3 weeks ago Medication changes: Yes Norvasc 5 mg daily resumed Taking all medications as prescribed: Yes Side effects: No Home BP's: Yes home readings are in the 160's/90's Denies: headache, chest pain, palpitations, dyspnea, and peripheral edema. Last 4 Encounter BP Readings: Date: BP: 02/12/2024 158/78 01/22/2024 190/82 01/01/2024 198/77 08/13/2023 136/92 Last 3 Encounter Wt Readings: Date: Wt: 02/12/2024 68 kg (150 lb) 01/22/2024 69.9 kg (154 lb) 01/01/2024 70.7 kg (155 lb 12.8 oz) Neuropathy- takes Gabapentin 300 mg at bedtime and is able to sleep. However he is in a lot of painduring the day, hard to do ADL's because of this. He can't tolerate the 300 mg dose during the day.Wondering what else can be done. Review of Systems See HPI 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 Chronic respiratory failure with hypoxia (HCC) 01/01/2024 Clostridium difficile colitis 05/14/2017 COPD (chronic obstructive pulmonary disease) (HCC) 08/13/2023 DDD (degenerative disc disease), lumbar 11/07/2016 Diarrhea Esophageal reflux 08/29/2006 Essential hypertension, benign Inguinal hernia without mention of obstruction or gangrene, unilateral or unspecified, (not specified as recurrent) 10/11/2008 Mixed hyperlipidemia 09/02/2006 Nonspecific (abnormal) findings on radiological and other examination of abdominal area, including retroperitoneum PAD (peripheral artery disease) (HCC) Prostate cancer (HCC) 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. Traumatic subdural hematoma without loss of consciousness (HCC) 09/14/2020 Umbilical hernia without mention of obstruction or gangrene 10/11/2008 PAST SURGICAL HISTORY Procedure Laterality Date ARTHROPLASTY GLENOHUMRL JT HEMIARTHROPLASTY Right 1993 Arthroplasty, shoulder right x 2. 1991, 1993. COLONOSCOPY & POLYPECTOMY 05/15/2010 [place]omas [place] COLONOSCOPY DIAGNOSTIC 06/05/2022 sigmoid tubular adenoma COLONOSCOPY FLX DX W/COLLJ SPEC WHEN PFRMD 04/26/2014 Colonoscopy COLONOSCOPY FLX DX W/COLLJ SPEC WHEN PFRMD 05/07/2016 Colonoscopy EGD 05/04/2022 LAMINECTOMY W/O FFD > 2 VERT SEG LUMBAR 06/11/2018 [facility] [place] PAST SURGICAL HISTORY OF 2001 bilat cataracts, retina PAST SURGICAL HISTORY OF Left 09/2019 femoral artery PAST SURGICAL HISTORY OF 09/14/2020 CRANIOTOMY FOR EVACUATION OF SUPRATENTORIAL SUBDURAL HEMATOMA RPR 1ST INGUN HRNA AGE 5 YRS/> REDUCIBLE 11/26/2008 left RPR 1ST INGUN HRNA AGE 5 YRS/> REDUCIBLE 01/20/2018 Hernia repair, inguinal right, indirect w/medium mesh plug [facility] RPR UMBILICAL HRNA 5 YRS/> REDUCIBLE 11/26/2008 SEED IMPLANT 05/2010 for prostate cancer SIGMOIDOSCOPY FLX DX W/COLLJ SPEC BR/WA IF PFRMD 12/05/2010 ALLERGIES Patient has no known allergies. MEDICATIONS amLODIPine (NORVASC) 5 mg tablet Take 1 tablet by mouth once daily. metoprolol tartrate, short acting, (LOPRESSOR) 50 mg tablet Take 1 tablet by mouth two times a day. chlorthalidone (HYGROTON) 25 mg tablet Take 1 tablet by mouth once daily. albuterol HFA (VENTOLIN HFA) 90 mcg/actuation inhaler Inhale 2 Puffs as instructed every 4 hours asneeded for wheezing/shortness of breath. umeclidinium-vilanterol (ANORO ELLIPTA) 62.5-25 mcg/actuation inhaler Inhale 1 Inhalation as instructed once daily. doxazosin (CARDURA) 4 mg tablet Take 1 tablet by mouth daily at bedtime. Added to 8 mg tablet. doxazosin (CARDURA) 8 mg tablet Take 1 tablet by mouth daily at bedtime. lisinopril (ZESTRIL) 40 mg tablet Take 1 tablet by mouth once daily. potassium chloride (K-TAB) 10 mEq tablet Take 1 tablet by mouth daily with breakfast. gabapentin (NEURONTIN) 300 mg capsule Take 1 capsule by mouth daily at bedtime for 180 days. omeprazole (PRILOSEC) 20 mg capsule Take 1 capsule by mouth once daily. acetaminophen (TYLENOL) 325 mg tablet Take 2 tablets by mouth every 4 hours as needed. FAMILY HISTORY Problem Relation Age of Onset Diabetes Brother skin cancer Prostate Cancer Brother Stroke Mother Blood Disease Father Coronary Artery Disease Brother other (Other) Brother paraplegia No Ocular Disease Other Social History Tobacco Use Smoking status: Every Day Packs/day: 0.50 Years: 62.00 Additional pack years: 0.00 Total pack years: 31.00 Types: Cigarettes Start date: 02/22/1961 Smokeless tobacco: Never Tobacco comments: 5-6 per day. One ppd in past Able to quit for 5 years and 3 years Vaping Use Vaping Use: Never used Substance Use Topics Alcohol use: Yes Alcohol/week: 7.0 standard drinks of alcohol Types: 7 Glasses of Wine (5oz) per week Drug use: No BP 158/78 Pulse (!) 49 Resp 16 Wt 68 kg (150 lb) SpO2 96% BMI 25.30 kg/m Physical Exam Vitals reviewed. Constitutional: Appearance: Normal appearance. Neurological: Mental Status: He is alert. Psychiatric: Mood and Affect: Mood normal. ASSESSMENT/PLAN: 1. Essential hypertension - ICD9: 401.9, ICD10: I10 (primary diagnosis) - Improving control - Continue current medications - Increase Norvasc to 10 mg daily - Recommend home blood pressure monitoring, to bring results to next visit - Encouraged sodium restriction, DASH or Mediterranean diet - Follow up in 4 weeks for hypertension visit - AMLODIPINE 10 MG TABLET 2. DDD (degenerative disc disease), lumbar - ICD9: 722.52, ICD10: M51.36 Pain not controlled during the day. Start Gabapentin 100 mg in the morning and continue with the 300 mg at bedtime. Call for side effects - GABAPENTIN 300 MG CAPSULE Prescription instructions reviewed with patient as applicable. Potential red flag symptoms discussed with the patient. Reviewed appropriate action plan to take if red flag symptoms occur. Patient agreeable to treatment plan Precious Teixeira APRN.CNP [facility] Instructions* Patient Instructions* Precious Teixeira APRN.CNP - 01/22/2024 1:24 PM EDT Resume amlodipine, continue with all other blood pressure medications as prescribed. documented in this encounterBarn[facility]24 NoteHNO ID: [id number] Author: PRECIOUS TEIXEIRA APRN.CNP Service: ? Author Type: Nurse Practitioner Type: Progress Notes Filed: 01/22/2024 19:08 Note Text: CC Patient presents with: 3 week follow up: Blood pressure HPI Tye Vazquez is a 83 year old male who presents to the office for blood pressure. His visit today is for follow-up. Patient was last seen for this approximately 3 week ago. Medication changes: No Taking all medications as prescribed: Yes Side effects: Yes. He is having intermittent urinary incontinence. He is concerned it is due to his medications. Home BP's: Yes Once weekly. 187/82 was his last check. Denies: headache, chest pain, palpitations, dyspnea, peripheral edema, orthopnea, and fatigue. Last 4 Encounter BP Readings: Date: BP: 01/22/2024 194/88 01/01/2024 198/77 08/13/2023 136/92 07/19/2023 172/77[bp eliza average[ Last 3 Encounter Wt Readings: Date: Wt: 01/22/2024 69.9 kg (154 lb) 01/01/2024 70.7 kg (155 lb 12.8 oz) 09/09/2023 69.9 kg (154 lb) Exercise: denies regular aerobic exercise or is more or less sedentary occasionally exercising in the form of walking. Diet: Watch for salt, fat, cholesterol: No. He eats sweet rolls or toast for breakfast and whatever his relative makes for the other meals. Caffeine: 3 cups daily Alcohol: 4oz red wine at bedtime Smoking: Yes 1/2 pk daily Frequent NSAID use: Yes Advil 4 nights a week starting about a week ago. Decongestants: No Thyroid disorders: No Sleep disorders/snoring: Not that he is aware of. - He has concerns of intermittent urinary incontinence. He believes this is due to his medications. He denies any dysuria, hematuria or flank pain. He has a history of prostate cancer. His last PSA was 2020. He is not seeing a urologist. - He only took Cymbalta ordered 01/01/24 x 2 and then stopped. He did not like how he felt when taking it and had difficultly sleeping. - He has been taking gabapentin as prescribed but is considering stopping this as well. He is feeling tired/groggy after taking it. Review of Systems Constitutional: Negative for activity change, appetite change, chills and fever. HENT: Negative for congestion. Respiratory: Negative for chest tightness and shortness of breath. Cardiovascular: Negative for chest pain, palpitations and leg swelling. Gastrointestinal: Negative for abdominal pain, blood in stool and constipation. Endocrine: Negative for cold intolerance and heat intolerance. Genitourinary: Negative for hematuria and testicular pain. Intermittent incontinence Skin: Negative for color change. Neurological: Negative for dizziness, syncope and headaches. Psychiatric/Behavioral: Negative for suicidal ideas. 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 Chronic respiratory failure with hypoxia ([facility]) 01/01/2024 Clostridium difficile colitis 05/14/2017 COPD (chronic obstructive pulmonary disease) ([facility]) 08/13/2023 DDD (degenerative disc disease), lumbar 11/07/2016 Diarrhea Esophageal reflux 08/29/2006 Essential hypertension, benign Inguinal hernia without mention of obstruction or gangrene, unilateral or unspecified, (not specified as recurrent) 10/11/2008 Mixed hyperlipidemia 09/02/2006 Nonspecific (abnormal) findings on radiological and other examination of abdominal area, including retroperitoneum PAD (peripheral artery disease) ([facility]) Prostate cancer ([facility]) 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. Traumatic subdural hematoma without loss of consciousness ([facility]) 09/14/2020 Umbilical hernia without mention of obstruction or gangrene 10/11/2008 PAST SURGICAL HISTORY Procedure Laterality Date ARTHROPLASTY GLENOHUMRL JT HEMIARTHROPLASTY Right 1993 Arthroplasty, shoulder right x 2. 1991, 1993. COLONOSCOPY AND POLYPECTOMY 05/15/2010 [place]omas [place] COLONOSCOPY DIAGNOSTIC 06/05/2022 sigmoid tubular adenoma COLONOSCOPY FLX DX W/COLLJ SPEC WHEN PFRMD 04/26/2014 Colonoscopy COLONOSCOPY FLX DX W/COLLJ SPEC WHEN PFRMD 05/07/2016 Colonoscopy EGD 05/04/2022 LAMINECTOMY W/O FFD > 2 VERT SEG LUMBAR 06/11/2018 [facility] [place] PAST SURGICAL HISTORY OF 2001 bilat cataracts, retina PAST SURGICAL HISTORY OF Left 09/2019 femoral artery PAST SURGICAL HISTORY OF 09/14/2020 CRANIOTOMY FOR EVACUATION OF SUPRATENTORIAL SUBDURAL HEMATOMA RPR 1ST INGUN HRNA AGE 5 YRS/> REDUCIBLE 11/26/2008 left RPR 1ST INGUN HRNA AGE 5 YRS/> REDUCIBLE 01/20/2018 Hernia repair, inguinal right, indirect w/medium mesh plug [facility] RPR UMBILICAL HRNA 5 YRS/> REDUCIBLE 11/26/2008 SEED IMPLANT 05/2010 for prostate cancer SIGMOIDOSCOPY FLX DX W/COLLJ SPEC BR/WA IF PFRMD 12/05/2010 ALLERGIES Patient has no known allergies. MEDICATIONS metoprolol tartrate, short a (more content not included)...[facility]04-10-[facility] History of Present illness Narrative* Precious Teixeira, 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 PITTER - 01/22/2024 12:46 PM EDT CC Patient presents with: 3 week follow up: Blood pressure HPI Tye Vazquez is a 83 year old male who presents to the office for blood pressure. His visit todayis for follow-up. Patient was last seen for this approximately 3 week ago. Medication changes: No Taking all medications as prescribed: Yes Side effects: Yes. He is having intermittent urinary incontinence. He is concerned it is due to hismedications. Home BP's: Yes Once weekly. 187/82 was his last check. Denies: headache, chest pain, palpitations, dyspnea, peripheral edema, orthopnea, and fatigue. Last 4 Encounter BP Readings: Date: BP: 01/22/2024 194/88 01/01/2024 198/77 08/13/2023 136/92 07/19/2023 172/77[bp eliza average[ Last 3 Encounter Wt Readings: Date: Wt: 01/22/2024 69.9 kg (154 lb) 01/01/2024 70.7 kg (155 lb 12.8 oz) 09/09/2023 69.9 kg (154 lb) Exercise: denies regular aerobic exercise or is more or less sedentary occasionally exercising in the form of walking. Diet: Watch for salt, fat, cholesterol: No. He eats sweet rolls or toast for breakfast and whateverhis relative makes for the other meals. Caffeine: 3 cups daily Alcohol: 4oz red wine at bedtime Smoking: Yes 1/2 pk daily Frequent NSAID use: Yes Advil 4 nights a week starting about a week ago. Decongestants: No Thyroid disorders: No Sleep disorders/snoring: Not that he is aware of. - He has concerns of intermittent urinary incontinence. He believes this is due to his medications.He denies any dysuria, hematuria or flank pain. He has a history of prostate cancer. His last PSA was 2020. He is not seeing a urologist. - He only took Cymbalta ordered 01/01/24 x 2 and then stopped. He did not like how he felt when taking it and had difficultly sleeping. - He has been taking gabapentin as prescribed but is considering stopping this as well. He is feeling tired/groggy after taking it. Review of Systems Constitutional: Negative for activity change, appetite change, chills and fever. HENT: Negative for congestion. Respiratory: Negative for chest tightness and shortness of breath. Cardiovascular: Negative for chest pain, palpitations and leg swelling. Gastrointestinal: Negative for abdominal pain, blood in stool and constipation. Endocrine: Negative for cold intolerance and heat intolerance. Genitourinary: Negative for hematuria and testicular pain. Intermittent incontinence Skin: Negative for color change. Neurological: Negative for dizziness, syncope and headaches. Psychiatric/Behavioral: Negative for suicidal ideas. 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 Chronic respiratory failure with hypoxia (HCC) 01/01/2024 Clostridium difficile colitis 05/14/2017 COPD (chronic obstructive pulmonary disease) (HCC) 08/13/2023 DDD (degenerative disc disease), lumbar 11/07/2016 Diarrhea Esophageal reflux 08/29/2006 Essential hypertension, benign Inguinal hernia without mention of obstruction or gangrene, unilateral or unspecified, (not specified as recurrent) 10/11/2008 Mixed hyperlipidemia 09/02/2006 Nonspecific (abnormal) findings on radiological and other examination of abdominal area, including retroperitoneum PAD (peripheral artery disease) (HCC) Prostate cancer (HCC) 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. Traumatic subdural hematoma without loss of consciousness (HCC) 09/14/2020 Umbilical hernia without mention of obstruction or gangrene 10/11/2008 PAST SURGICAL HISTORY Procedure Laterality Date ARTHROPLASTY GLENOHUMRL JT HEMIARTHROPLASTY Right 1993 Arthroplasty, shoulder right x 2. 1991, 1993. COLONOSCOPY & POLYPECTOMY 05/15/2010 tubular adenomas removed- [place] COLONOSCOPY DIAGNOSTIC 06/05/2022 sigmoid tubular adenoma COLONOSCOPY FLX DX W/COLLJ SPEC WHEN PFRMD 04/26/2014 Colonoscopy COLONOSCOPY FLX DX W/COLLJ SPEC WHEN PFRMD 05/07/2016 Colonoscopy EGD 05/04/2022 LAMINECTOMY W/O FFD > 2 VERT SEG LUMBAR 06/11/2018 [facility] [place] PAST SURGICAL HISTORY OF 2001 bilat cataracts, retina PAST SURGICAL HISTORY OF Left 09/2019 femoral artery PAST SURGICAL HISTORY OF 09/14/2020 CRANIOTOMY FOR EVACUATION OF SUPRATENTORIAL SUBDURAL HEMATOMA RPR 1ST INGUN HRNA AGE 5 YRS/> REDUCIBLE 11/26/2008 left RPR 1ST INGUN HRNA AGE 5 YRS/> REDUCIBLE 01/20/2018 Hernia repair, inguinal right, indirect w/medium mesh plug [facility] RPR UMBILICAL HRNA 5 YRS/> REDUCIBLE 11/26/2008 SEED IMPLANT 05/2010 for prostate cancer SIGMOIDOSCOPY FLX DX W/COLLJ SPEC BR/WA IF PFRMD 12/05/2010 ALLERGIES Patient has no known allergies. MEDICATIONS metoprolol tartrate, short acting, (LOPRESSOR) 50 mg tablet Take 1 tablet by mouth two times a day. chlorthalidone (HYGROTON) 25 mg tablet Take 1 tablet by mouth once daily. albuterol HFA (VENTOLIN HFA) 90 mcg/actuation inhaler Inhale 2 Puffs as instructed every 4 hours asneeded for wheezing/shortness of breath. umeclidinium-vilanterol (ANORO ELLIPTA) 62.5-25 mcg/actuation inhaler Inhale 1 Inhalation as instructed once daily. doxazosin (CARDURA) 4 mg tablet Take 1 tablet by mouth daily at bedtime. Added to 8 mg tablet. DULoxetine (CYMBALTA) 60 mg capsule Take 1 capsule by mouth once daily. doxazosin (CARDURA) 8 mg tablet Take 1 tablet by mouth daily at bedtime. lisinopril (ZESTRIL) 40 mg tablet Take 1 tablet by mouth once daily. potassium chloride (K-TAB) 10 mEq tablet Take 1 tablet by mouth daily with breakfast. gabapentin (NEURONTIN) 300 mg capsule Take 1 capsule by mouth daily at bedtime for 180 days. omeprazole (PRILOSEC) 20 mg capsule Take 1 capsule by mouth once daily. acetaminophen (TYLENOL) 325 mg tablet Take 2 tablets by mouth every 4 hours as needed. FAMILY HISTORY Problem Relation Age of Onset Diabetes Brother skin cancer Prostate Cancer Brother Stroke Mother Blood Disease Father Coronary Artery Disease Brother other (Other) Brother paraplegia No Ocular Disease Other Social History Tobacco Use Smoking status: Every Day Packs/day: 0.50 Years: 62.00 Additional pack years: 0.00 Total pack years: 31.00 Types: Cigarettes Start date: 02[birth year]22/1961 Smokeless tobacco: Never Tobacco comments: 5-6 per day. One ppd in past Able to quit for 5 years and 3 years Vaping Use Vaping Use: Never used Substance Use Topics Alcohol use: Yes Alcohol/week: 7.0 standard drinks of alcohol Types: 7 Glasses of Wine (5oz) per week Drug use: No BP 190/82 Pulse (!) 58 Resp 20 Wt 69.9 kg (154 lb) SpO2 95% BMI 25.97 kg/m Physical Exam Constitutional: General: He is not in acute distress. Cardiovascular: Rate and Rhythm: Regular rhythm. Pulses: Normal pulses. Heart sounds: Normal heart sounds. No murmur heard. Pulmonary: Effort: Pulmonary effort is normal. Breath sounds: Decreased breath sounds present. Abdominal: General: Abdomen is flat. Bowel sounds are normal. Palpations: Abdomen is soft. Musculoskeletal: General: Normal range of motion. Right lower leg: No edema. Left lower leg: No edema. Skin: General: Skin is warm and dry. Capillary Refill: Capillary refill takes less than 2 seconds. Neurological: Mental Status: He is alert and oriented to person, place, and time. Psychiatric: Mood and Affect: Mood normal. DATA REVIEWED: Most recent labs and imaging results. ASSESSMENT/PLAN: 1. Essential hypertension - ICD9: 401.9, ICD10: I10 (primary diagnosis) Patient notified at his visit 01/01/24 that he stopped taking Amlodipine because he thought it was contributing to neuropathy. He is agreeable to restart. - Uncontrolled - Worsening control - Factors affecting control: medication adherence - Continue current medications. Take as prescribed. - Re-Start amlodipine 5 mg daily - Recommend home blood pressure monitoring, to bring results to next visit - Encouraged sodium restriction, DASH or Mediterranean diet - Recommend regular aerobic exercise - Follow up in 3 weeks for hypertension visit - AMLODIPINE 5 MG TABLET 2. Urinary incontinence, unspecified type - ICD9: 788.30, ICD10: R32 This has been a problem for years. - Suggested referral to urology - See #3 3. Prostate cancer (HCC) - ICD9: 185, ICD10: C61 Last PSA was 01/20/2021 and normal. Hx of prostate cancer and radiation treatment. He was advised to have checked in 07/2023 but did not get done. He does not see urology. - PROSTATE-SPECIFIC ANTIGEN DIAGNOSTIC Prescription instructions reviewed with patient as applicable. Potential red flag symptoms discussed with the patient. Reviewed appropriate action plan to take if red flag symptoms occur. Patient agreeable to treatment plan Precious Teixeira APRN.OLIVE PITTER documented in this encounterBarn[facility]03-20-[facility]24 NoteHNO ID: [id number] Author: TALON BOLAÑOS MD Service: ? Author Type: Physician Type: Progress Notes Filed: 01/01/2024 15:31 Note Text: This note was created using [employer]. Subjective Tye Vazquez is a 83 year old male. He had no new concerns. He was dealing with more chronic back pain, and seeing a chiropractor the past 2 months. His blood pressure was not controlled. He stopped filling lisinopril since other medications were added. He also stopped amlodipine due to concerns about neuropathy. He used to be on oxygen, but returned the equipment because of inconvenience. He monitored his O2 sat at home, and it had been fine most of the time. Review of Systems Constitutional: Negative for activity change, fatigue, fever and unexpected weight change. HENT: Negative for congestion. Respiratory: Negative for cough, chest tightness, shortness of breath and wheezing. Cardiovascular: Negative for chest pain, palpitations and leg swelling. Gastrointestinal: Negative for diarrhea, nausea and vomiting. Genitourinary: Negative for difficulty urinating. Musculoskeletal: Positive for back pain. Neurological: Negative for dizziness, syncope and headaches. ACTIVE PROBLEM LIST Esophageal Reflux Mixed Hyperlipidemia Benign Neoplasm of Rectum and Anal Canal Tobacco Use Disorder History of Prostate Cancer Essential Hypertension Ddd (Degenerative Disc Disease), Lumbar Pad (Peripheral Artery Disease) ([facility]) Other Insomnia Incomplete Rbbb Sinus Bradycardia Peripheral Neuropathy Psoriasis Social History Tobacco Use Smoking status: Every Day Packs/day: 0.50 Years: 62.00 Additional pack years: 0.00 Total pack years: 31.00 Types: Cigarettes Start date: 02/22/1961 Smokeless tobacco: Never Tobacco comments: 5-6 per day. One ppd in past Able to quit for 5 years and 3 years Vaping Use Vaping Use: Never used Substance Use Topics Alcohol use: Yes Alcohol/week: 7.0 standard drinks of alcohol Types: 7 Glasses of Wine (5oz) per week Drug use: No Current Outpatient Medications Medication Sig potassium chloride (K-TAB) 10 mEq tablet Take 1 tablet by mouth daily with breakfast. gabapentin (NEURONTIN) 300 mg capsule Take 1 capsule by mouth daily at bedtime for 180 days. umeclidinium-vilanterol (ANORO ELLIPTA) 62.5-25 mcg/actuation inhaler Inhale 1 Inhalation as instructed once daily. chlorthalidone (HYGROTON) 25 mg tablet Take 1 tablet by mouth once daily. albuterol HFA (VENTOLIN HFA) 90 mcg/actuation inhaler Inhale 2 Puffs as instructed every 4 hours as needed for wheezing/shortness of breath. doxazosin (CARDURA) 8 mg tablet Take 1 tablet by mouth daily at bedtime. doxazosin (CARDURA) 4 mg tablet Take 1 tablet by mouth daily at bedtime. Added to 8 mg tablet. omeprazole (PRILOSEC) 20 mg capsule Take 1 capsule by mouth once daily. amLODIPine (NORVASC) 5 mg tablet Take 1 tablet by mouth once daily. lisinopril (ZESTRIL) 40 mg tablet Take 1 tablet by mouth once daily. DULoxetine (CYMBALTA) 20 mg capsule Take 2 capsules by mouth once daily. metoprolol tartrate, short acting, (LOPRESSOR) 50 mg tablet Take 1 tablet by mouth twice daily. acetaminophen (TYLENOL) 325 mg tablet Take 2 tablets by mouth every 4 hours as needed. No current facility-administered medications for this visit. Objective Blood Pressure 198/77 (BP Site: Left Arm, BP Position: Sitting, BP Cuff Size: Large Adult) Pulse (Abnormal) 52 Temperature 36.4 ?C (97.6 ?F) (Temporal) Weight 70.7 kg (155 lb 12.8 oz) Oxygen Saturation (Abnormal) 84% Body Mass Index 26.28 kg/m? Physical Exam Constitutional: General: He is not in acute distress. Appearance: He is not ill-appearing or diaphoretic. HENT: Head: Normocephalic. Eyes: Extraocular Movements: Extraocular movements intact. Conjunctiva/sclera: Conjunctivae normal. Cardiovascular: Rate and Rhythm: Regular rhythm. Bradycardia present. Heart sounds: No murmur heard. No gallop. Pulmonary: Effort: No respiratory distress. Breath sounds: No stridor. Rhonchi present. No wheezing or rales. Abdominal: General: There is no distension. Musculoskeletal: Right lower leg: No edema. Left lower leg: No edema. Neurological: General: No focal deficit present. Mental Status: He is alert. Assessment and Plan 1. Chronic respiratory failure with hypoxia (HCC) - ICD9: 518.83, 799.02, ICD10: J96.11 (primary diagnosis) He declined to have this set up. He was instructed to call if he changed his mind. Risk of MD and CVA were discussed. - OXYGEN FOR HOME USE-- refused. 2. Idiopathic peripheral neuropathy - ICD9: 356.9, ICD10: G60.9 Dose increased. - DULOXETINE 60 MG CAPSULE,DELAYED RELEASE 3. Essential hypertension - ICD9: 401.9, ICD10: I10 - Uncontrolled - Encouraged sodium restriction, DASH or Mediterranean diet - Stressed need for adherence. - METOPROLOL TARTRATE 50 MG TABLET - CHLORTHALIDONE 25 MG TA (more content not included)...[facility]03-20-2024 History of Present illness Narrative* Talon Bolaños MD - 01/01/2024 2:04 PM EDT This note was created using [employer]. Subjective Tye Vazquez is a 83 year old male. He had no new concerns. He was dealing with more chronic backpain, and seeing a chiropractor the past 2 months. His blood pressure was not controlled. He stopped filling lisinopril since other medications were added. He also stopped amlodipine due to concerns about neuropathy. He used to be on oxygen, but returned the equipment because of inconvenience. He monitored his O2 sat at home, and it had been fine most of the time. Review of Systems Constitutional: Negative for activity change, fatigue, fever and unexpected weight change. HENT: Negative for congestion. Respiratory: Negative for cough, chest tightness, shortness of breath and wheezing. Cardiovascular: Negative for chest pain, palpitations and leg swelling. Gastrointestinal: Negative for diarrhea, nausea and vomiting. Genitourinary: Negative for difficulty urinating. Musculoskeletal: Positive for back pain. Neurological: Negative for dizziness, syncope and headaches. ACTIVE PROBLEM LIST Esophageal Reflux Mixed Hyperlipidemia Benign Neoplasm of Rectum and Anal Canal Tobacco Use Disorder History of Prostate Cancer Essential Hypertension Ddd (Degenerative Disc Disease), Lumbar Pad (Peripheral Artery Disease) (Hcc) Other Insomnia Incomplete Rbbb Sinus Bradycardia Peripheral Neuropathy Psoriasis Social History Tobacco Use Smoking status: Every Day Packs/day: 0.50 Years: 62.00 Additional pack years: 0.00 Total pack years: 31.00 Types: Cigarettes Start date: 02/22/1961 Smokeless tobacco: Never Tobacco comments: 5-6 per day. One ppd in past Able to quit for 5 years and 3 years Vaping Use Vaping Use: Never used Substance Use Topics Alcohol use: Yes Alcohol/week: 7.0 standard drinks of alcohol Types: 7 Glasses of Wine (5oz) per week Drug use: No Current Outpatient Medications Medication Sig potassium chloride (K-TAB) 10 mEq tablet Take 1 tablet by mouth daily with breakfast. gabapentin (NEURONTIN) 300 mg capsule Take 1 capsule by mouth daily at bedtime for 180 days. umeclidinium-vilanterol (ANORO ELLIPTA) 62.5-25 mcg/actuation inhaler Inhale 1 Inhalation as instructed once daily. chlorthalidone (HYGROTON) 25 mg tablet Take 1 tablet by mouth once daily. albuterol HFA (VENTOLIN HFA) 90 mcg/actuation inhaler Inhale 2 Puffs as instructed every 4 hours asneeded for wheezing/shortness of breath. doxazosin (CARDURA) 8 mg tablet Take 1 tablet by mouth daily at bedtime. doxazosin (CARDURA) 4 mg tablet Take 1 tablet by mouth daily at bedtime. Added to 8 mg tablet. omeprazole (PRILOSEC) 20 mg capsule Take 1 capsule by mouth once daily. amLODIPine (NORVASC) 5 mg tablet Take 1 tablet by mouth once daily. lisinopril (ZESTRIL) 40 mg tablet Take 1 tablet by mouth once daily. DULoxetine (CYMBALTA) 20 mg capsule Take 2 capsules by mouth once daily. metoprolol tartrate, short acting, (LOPRESSOR) 50 mg tablet Take 1 tablet by mouth twice daily. acetaminophen (TYLENOL) 325 mg tablet Take 2 tablets by mouth every 4 hours as needed. No current facility-administered medications for this visit. Objective Blood Pressure 198/77 (BP Site: Left Arm, BP Position: Sitting, BP Cuff Size: Large Adult) Pulse (Abnormal) 52 Temperature 36.4 C (97.6 F) (Temporal) Weight 70.7 kg (155 lb 12.8 oz) Oxygen Saturation (Abnormal) 84% Body Mass Index 26.28 kg/m Physical Exam Constitutional: General: He is not in acute distress. Appearance: He is not ill-appearing or diaphoretic. HENT: Head: Normocephalic. Eyes: Extraocular Movements: Extraocular movements intact. Conjunctiva/sclera: Conjunctivae normal. Cardiovascular: Rate and Rhythm: Regular rhythm. Bradycardia present. Heart sounds: No murmur heard. No gallop. Pulmonary: Effort: No respiratory distress. Breath sounds: No stridor. Rhonchi present. No wheezing or rales. Abdominal: General: There is no distension. Musculoskeletal: Right lower leg: No edema. Left lower leg: No edema. Neurological: General: No focal deficit present. Mental Status: He is alert. Assessment and Plan 1. Chronic respiratory failure with hypoxia (HCC) - ICD9: 518.83, 799.02, ICD10: J96.11 (primary diagnosis) He declined to have this set up. He was instructed to call if he changed his mind. Risk of MD and CVA were discussed. - OXYGEN FOR HOME USE-- refused. 2. Idiopathic peripheral neuropathy - ICD9: 356.9, ICD10: G60.9 Dose increased. - DULOXETINE 60 MG CAPSULE,DELAYED RELEASE 3. Essential hypertension - ICD9: 401.9, ICD10: I10 - Uncontrolled - Encouraged sodium restriction, DASH or Mediterranean diet - Stressed need for adherence. - METOPROLOL TARTRATE 50 MG TABLET - CHLORTHALIDONE 25 MG TABLET - DOXAZOSIN 4 MG TABLET - DOXAZOSIN 8 MG TABLET - LISINOPRIL 40 MG TABLET 4. Chronic obstructive pulmonary disease, unspecified COPD type (HCC) - ICD9: 496, ICD10: J44.9 - ALBUTEROL SULFATE HFA 90 MCG/ACTUATION AEROSOL INHALER - ANORO ELLIPTA 62.5 MCG-25 MCG/ACTUATION POWDER FOR INHALATION - OXYGEN FOR HOME USE- refused. Talon Bolaños MD documented in this encounterBarn[facility]ville Hospital03-19-2024 NoteHNO ID: [id number] Author: LIV MOLINA LPN Service: ? Author Type: LICENSED NURSE Type: Progress Notes Filed: 12/31/2023 11:05 Note Text: POPULATION HEALTH NAVIGATION OUTREACH Action/FYI Reason for Outreach Care Gap/HCC or Scheduling Wellness Visits Care Gaps due: Follow-up Appointment Patient Contacted: Spoke to patient/parent/or legal guardian Patient identified by name and : Yes Care Gap/HCC/Scheduling Wellness actions taken: Patient scheduled/pended labs: Follow-up Appointment Navigation Signature: Liv Molina LPN December 31, 2023 11:01 [facility]03-19-2024 History of Present illness Narrative* Liv Molina LPN - 12/31/2023 11:00 AM EDT POPULATION HEALTH NAVIGATION OUTREACH Action/FYI Reason for Outreach Care Gap/HCC or Scheduling Wellness Visits Care Gaps due: Follow-up Appointment Patient Contacted: Spoke to patient/parent/or legal guardian Patient identified by name and : Yes Care Gap/HCC/Scheduling Wellness actions taken: Patient scheduled/pended labs: Follow-up Appointment Navigation Signature: Liv Molina LPN December 31, 2023 11:01 AM documented in this encounterBarnesville Hospital03-19-2024 NotePatient Outreach (INTMWS) TYE VAZQUEZ ([id number]) 1940 M Date Time Provider Department 12/31/23 LIV MOLINA INTMWS During your visit today, we recorded the following information about you: Liv Molina LPN 12/31/2023 11:05 AM Signed POPULATION HEALTH NAVIGATION OUTREACH Action/FYI Reason for Outreach Care Gap/HCC or Scheduling Wellness Visits Care Gaps due: Follow-up Appointment Patient Contacted: Spoke to patient/parent/or legal guardian Patient identified by name and : Yes Care Gap/HCC/Scheduling Wellness actions taken: Patient scheduled/pended labs: Follow-up Appointment Navigation Signature: Liv Molina LPN December 31, 2023 11:01 AM Allergies As of Date: 12/31/2023 (No Known Allergies) Date Reviewed: 08/13/2023 Reviewed by: Laverne Juarez MD - Fully Assessed Prescriptions as of 12/31/2023 - potassium chloride (K-TAB) 10 mEq tablet Take 1 tablet by mouth daily with breakfast. - gabapentin (NEURONTIN) 300 mg capsule Take 1 capsule by mouth daily at bedtime for 180 days. - umeclidinium-vilanterol (ANORO ELLIPTA) 62.5-25 mcg/actuation inhaler Inhale 1 Inhalation as instructed once daily. - chlorthalidone (HYGROTON) 25 mg tablet Take 1 tablet by mouth once daily. - albuterol HFA (VENTOLIN HFA) 90 mcg/actuation inhaler Inhale 2 Puffs as instructed every 4 hours as needed for wheezing/shortness of breath. - doxazosin (CARDURA) 8 mg tablet Take 1 tablet by mouth daily at bedtime. - doxazosin (CARDURA) 4 mg tablet Take 1 tablet by mouth daily at bedtime. Added to 8 mg tablet. - omeprazole (PRILOSEC) 20 mg capsule Take 1 capsule by mouth once daily. - amLODIPine (NORVASC) 5 mg tablet Take 1 tablet by mouth once daily. - lisinopril (ZESTRIL) 40 mg tablet Take 1 tablet by mouth once daily. - DULoxetine (CYMBALTA) 20 mg capsule Take 2 capsules by mouth once daily. - metoprolol tartrate, short acting, (LOPRESSOR) 50 mg tablet Take 1 tablet by mouth twice daily. - acetaminophen (TYLENOL) 325 mg tablet Take 2 tablets by mouth every 4 hours as needed. Problem List As Of Date 12/31/2023 Noted Resolved Dermatophytosis of foot [B35.3] 11/27/2005 06/14/2017 Esophageal reflux [K21.9] 08/29/2006 HYPERTENSION NOS [I10] 09/02/2006 03/29/2014 Mixed hyperlipidemia [E78.2] 09/02/2006 Ganglion of tendon sheath [M67.40] 03/19/2007 11/07/2016 Unspecified disorder of prostate [N42.9] 06/21/2007 09/06/2014 Inguinal hernia without mention of obstruction *10/11/2008 11/07/2016 Umbilical hernia without mention of obstruction*10/11/2008 11/07/2016 Rotator cuff (capsule) sprain [S43.429A] 09/20/2009 11/07/2016 Malignant neoplasm of prostate (HCC) [C61] 02/07/2010 11/07/2016 Benign neoplasm of rectum and anal canal [D12.8*05/15/2010 Tobacco use disorder [F17.200] 05/23/2010 Frequency of urination [R35.0] 10/02/2010 11/07/2016 History of prostate cancer [Z85.46] Diarrhea [R19.7] 12/05/2010 09/06/2014 Inguinal neuralgia [M79.2] 03/12/2013 11/07/2016 Rotator cuff impingement syndrome of right shou*04/10/2015 11/19/2019 Medicare annual wellness visit, subsequent [Z00*04/10/2015 06/20/2018 Right-sided low back pain with right-sided scia*10/03/2015 05/15/2016 Essential hypertension [I10] 10/16/2015 DDD (degenerative disc disease), lumbar [M51.36]11/07/2016 Clostridium difficile colitis [A04.72] 05/14/2017 06/20/2018 Inguinal hernia [K40.90] 01/20/2018 06/20/2018 Traumatic complete tear of left rotator cuff [S*11/03/2018 11/19/2019 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 *07/22/2019 11/01/2022 PAD (peripheral artery disease) (HCC) [I73.9] 09/21/2019 Other insomnia [G47.09] 09/22/2019 Anemia [D64.9] 09/24/2019 11/19/2019 Acute respiratory failure with hypoxia (HCC) [J*09/24/2019 11/19/2019 Leucocytosis [D72.829] 09/25/2019 11/19/2019 SDH (subdural hematoma) [S06.5XAA] 09/14/2020 11/01/2022 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] 09/15/2020 History of Clostridium difficile colitis [Z86.1*09/15/2020 11/01/2022 Sinus bradycardia [R00.1] 09/15/2020 Peripheral neuropathy [G62.9] 09/15/2020 Acute postoperative pain [G89.18] 09/20/2020 11/08/2020 Psoriasis [L40.9] 11/28/2020 Colitis [K52.9] 03/18/2022 11/01/2022 SHASHANK (acute kidney injury) (HCC) [N17.9] 03/18/2022 11/01/2022 Encounter Status:Closed by LIV MOLINA on 12/31/23[facility]03-07-2024 Miscellaneous Notes* Telephone Encounter - Saskia Hodge - 12/19/2023 12:56 PM EST Patient has been identified by name and date of : Yes Patient phones for refill(s): Requested Prescriptions Pending Prescriptions Disp Refills potassium chloride (K-TAB) 10 mEq tablet 90 tablet 1 Sig: Take 1 tablet by mouth daily with breakfast. Date of last office visit in primary care: 07/19/2023 Date of next office visit in primary care: 03/13/2024 Please advise. Thank you. Saskia Hodge. documented in this encounterBarnesville Hospital01-19-2024 NoteHNO ID: [id number] Author: ?, ?, ? Service: ? Author Type: ? Type: Progress Notes Filed: 11/01/2023 09:49 Note Text: POPULATION HEALTH NAVIGATION OUTREACH Action/FYI Wellness visit. PT scheduled Patient Identified by Name and : YES, via phone Outreach Outcome/Action Spoke to patient / parent / legal guardian: Patient scheduled Did you use a PCP flex slot to schedule this appointment? No Reason for Outreach Care Gap or Scheduling/Wellness visits Payer: Payor: [employer] / Plan: [employer] MED[employer]ARE ADVANTAGE HMO / Product Type: HMO / Care Gap Reviewed:: Annual Wellness visit Reminder: Reminder note to check Health Maintenance for items below Health Maintenance items due: RSV Vaccine(1 - 1-dose 60+ series) Never done Shingrix Vaccine(2 of 3) due on 09/17/2015 DTaP,Tdap,Td Vaccine(2 - Td or Tdap) due on 08/09/2021 Influenza Vaccine(1) due on 06/14/2023 Covid-19 Vaccine(3 - 2022-24 season) due on 06/14/2023 Advance Directive Discussion due on 10/14/2023 Depression Assessment due on 10/14/2023 Navigation Signature: Rubio Flynn November 01, 2023 9:49 [facility]01-19-2024 NotePatient Outreach (NETNAV) VAZQUEZTYE Claudy ([id number]) 1940 M Date Time Provider Department 11/01/23 RUBIO FLYNN (PSS) RENENAV During your visit today, we recorded the following information about you: Rubio Flynn 11/01/2023 9:49 AM Signed POPULATION HEALTH NAVIGATION OUTREACH Action/FYI Wellness visit. PT scheduled Patient Identified by Name and : YES, via phone Outreach Outcome/Action Spoke to patient / parent / legal guardian: Patient scheduled Did you use a PCP flex slot to schedule this appointment? No Reason for Outreach Care Gap or Scheduling/Wellness visits Payer: Payor: [employer] / Plan: [employer] MEDICARE ADVANTAGE HMO / Product Type: HMO / Care Gap Reviewed:: Annual Wellness visit Reminder: Reminder note to check Health Maintenance for items below Health Maintenance items due: RSV Vaccine(1 - 1-dose 60+ series) Never done Shingrix Vaccine(2 of 3) due on 09/17/2015 DTaP,Tdap,Td Vaccine(2 - Td or Tdap) due on 08/09/2021 Influenza Vaccine(1) due on 06/14/2023 Covid-19 Vaccine(3 - 2022- season) due on 06/14/2023 Advance Directive Discussion due on 10/14/2023 Depression Assessment due on 10/14/2023 Navigation Signature: Rubio Flynn November 01, 2023 9:49 AM Allergies As of Date: 11/01/2023 (No Known Allergies) Date Reviewed: 08/13/2023 Reviewed by: Laverne Juarez MD - Fully Assessed Reason for Visit: Population Health Navigation Outreach [3910] Cmt: [employer] [facility] wellness visit Prescriptions as of 11/01/2023 - gabapentin (NEURONTIN) 300 mg capsule Take 1 capsule by mouth daily at bedtime for 180 days. - umeclidinium-vilanterol (ANORO ELLIPTA) 62.5-25 mcg/actuation inhaler Inhale 1 Inhalation as instructed once daily. - chlorthalidone (HYGROTON) 25 mg tablet Take 1 tablet by mouth once daily. - albuterol HFA (VENTOLIN HFA) 90 mcg/actuation inhaler Inhale 2 Puffs as instructed every 4 hours as needed for wheezing/shortness of breath. - doxazosin (CARDURA) 8 mg tablet Take 1 tablet by mouth daily at bedtime. - doxazosin (CARDURA) 4 mg tablet Take 1 tablet by mouth daily at bedtime. Added to 8 mg tablet. - omeprazole (PRILOSEC) 20 mg capsule Take 1 capsule by mouth once daily. - potassium chloride (K-TAB) 10 mEq tablet Take 1 tablet by mouth daily with breakfast. - amLODIPine (NORVASC) 5 mg tablet Take 1 tablet by mouth once daily. - lisinopril (ZESTRIL) 40 mg tablet Take 1 tablet by mouth once daily. - DULoxetine (CYMBALTA) 20 mg capsule Take 2 capsules by mouth once daily. - metoprolol tartrate, short acting, (LOPRESSOR) 50 mg tablet Take 1 tablet by mouth twice daily. - acetaminophen (TYLENOL) 325 mg tablet Take 2 tablets by mouth every 4 hours as needed. Problem List As Of Date 11/01/2023 Noted Resolved Dermatophytosis of foot [B35.3] 11/27/2005 06/14/2017 Esophageal reflux [K21.9] 08/29/2006 HYPERTENSION NOS [I10] 09/02/2006 03/29/2014 Mixed hyperlipidemia [E78.2] 09/02/2006 Ganglion of tendon sheath [M67.40] 03/19/2007 11/07/2016 Unspecified disorder of prostate [N42.9] 06/21/2007 09/06/2014 Inguinal hernia without mention of obstruction *10/11/2008 11/07/2016 Umbilical hernia without mention of obstruction*10/11/2008 11/07/2016 Rotator cuff (capsule) sprain [S43.429A] 09/20/2009 11/07/2016 Malignant neoplasm of prostate (HCC) [C61] 02/07/2010 11/07/2016 Benign neoplasm of rectum and anal canal [D12.8*05/15/2010 Tobacco use disorder [F17.200] 05/23/2010 Frequency of urination [R35.0] 10/02/2010 11/07/2016 History of prostate cancer [Z85.46] Diarrhea [R19.7] 12/05/2010 09/06/2014 Inguinal neuralgia [M79.2] 03/12/2013 11/07/2016 Rotator cuff impingement syndrome of right shou*04/10/2015 11/19/2019 Medicare annual wellness visit, subsequent [Z00*04/10/2015 06/20/2018 Right-sided low back pain with right-sided scia*10/03/2015 05/15/2016 Essential hypertension [I10] 10/16/2015 DDD (degenerative disc disease), lumbar [M51.36]11/07/2016 Clostridium difficile colitis [A04.72] 05/14/2017 06/20/2018 Inguinal hernia [K40.90] 01/20/2018 06/20/2018 Traumatic complete tear of left rotator cuff [S*11/03/2018 11/19/2019 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 *07/22/2019 11/01/2022 PAD (peripheral artery disease) (HCC) [I73.9] 09/21/2019 Other insomnia [G47.09] 09/22/2019 Anemia [D64.9] 09/24/2019 11/19/2019 Acute respiratory failure with hypoxia (HCC) [J*09/24/2019 11/19/2019 Leucocytosis [D72.829] 09/25/2019 11/19/2019 SDH (subdural hematoma) [S06.5XAA] 09/14/2020 11/01/2022 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 Author Type: ? Type: Progress Notes Filed: 09/20/2023 1:11 PM Note Text: Tye Vazquez is identified through a medication adherence outreach initiative based on pharmacy claims data from [employer] (insurer) for [facility]IC medication(s). Patient is reviewed 09/20/23 due to medication adherence concerns with the following medications (name, strength, sig): lisinopril 40mg, take 1 tablet daily. Per data/report, last fill date and days supply: due 08/15/23 Per reconcile dispense, last fill date and days supply: filled 05/17/23 for 90 days Outcome of review/outreach: (choose outcome source and status) Left message and sent ITA Softwarehart message [facility] History of Present illness Narrative* Yuki Evans - 09/20/2023 1:08 PM EST Tye Vazquez is identified through a medication adherence outreach initiative based on pharmacy claims data from [employer] (insurer) for FREDERIC medication(s). Patient is reviewed 09/20/23 due to medication adherence concerns with the following medications (name, strength, sig): lisinopril 40mg, take 1 tablet daily. Per data/report, last fill date and days supply: due 08/15/23 Per reconcile dispense, last fill date and days supply: filled 05/17/23 for 90 days Outcome of review/outreach: (choose outcome source and status) Left message and sent ITA Softwarehart message Yuki Evans documented in this encounterBarn[facility]ville [facility]12-08-2023 NotePatient Outreach (PHPOHE) TYE VAZQUEZ ([id number]) 1940 M Date Time Provider Department 09/20/23 TALON BOLAÑOS PHPOHE During your visit today, we recorded the following information about you: Yuki Evans 09/20/2023 1:11 PM Signed Tye Vazquez is identified through a medication adherence outreach initiative based on pharmacy claims data from [employer] (insurer) for FREDERIC medication(s). Patient is reviewed 09/20/23 due to medication adherence concerns with the following medications (name, strength, sig): lisinopril 40mg, take 1 tablet daily. Per data/report, last fill date and days supply: due 08/15/23 Per reconcile dispense, last fill date and days supply: filled 05/17/23 for 90 days Outcome of review/outreach: (choose outcome source and status) Left message and sent ITA Softwarehart message Yuki Evans Allergies As of Date: 09/20/2023 (No Known Allergies) Date Reviewed: 08/13/2023 Reviewed by: Laverne Juarez MD - Fully Assessed Reason for Visit: Allied Health Visit [5] Cmt: Medication Adherence Outreach Prescriptions as of 09/20/2023 - gabapentin (NEURONTIN) 300 mg capsule Take 1 capsule by mouth daily at bedtime for 180 days. - umeclidinium-vilanterol (ANORO ELLIPTA) 62.5-25 mcg/actuation inhaler Inhale 1 Inhalation as instructed once daily. - chlorthalidone (HYGROTON) 25 mg tablet Take 1 tablet by mouth once daily. - albuterol HFA (VENTOLIN HFA) 90 mcg/actuation inhaler Inhale 2 Puffs as instructed every 4 hours as needed for wheezing/shortness of breath. - doxazosin (CARDURA) 8 mg tablet Take 1 tablet by mouth daily at bedtime. - doxazosin (CARDURA) 4 mg tablet Take 1 tablet by mouth daily at bedtime. Added to 8 mg tablet. - omeprazole (PRILOSEC) 20 mg capsule Take 1 capsule by mouth once daily. - potassium chloride (K-TAB) 10 mEq tablet Take 1 tablet by mouth daily with breakfast. - amLODIPine (NORVASC) 5 mg tablet Take 1 tablet by mouth once daily. - lisinopril (ZESTRIL) 40 mg tablet Take 1 tablet by mouth once daily. - DULoxetine (CYMBALTA) 20 mg capsule Take 2 capsules by mouth once daily. - metoprolol tartrate, short acting, (LOPRESSOR) 50 mg tablet Take 1 tablet by mouth twice daily. - acetaminophen (TYLENOL) 325 mg tablet Take 2 tablets by mouth every 4 hours as needed. Problem List As Of Date 09/20/2023 Noted Resolved Dermatophytosis of foot [B35.3] 11/27/2005 06/14/2017 Esophageal reflux [K21.9] 08/29/2006 HYPERTENSION NOS [I10] 09/02/2006 03/29/2014 Mixed hyperlipidemia [E78.2] 09/02/2006 Ganglion of tendon sheath [M67.40] 03/19/2007 11/07/2016 Unspecified disorder of prostate [N42.9] 06/21/2007 09/06/2014 Inguinal hernia without mention of obstruction *10/11/2008 11/07/2016 Umbilical hernia without mention of obstruction*10/11/2008 11/07/2016 Rotator cuff (capsule) sprain [S43.429A] 09/20/2009 11/07/2016 Malignant neoplasm of prostate (HCC) [C61] 02/07/2010 11/07/2016 Benign neoplasm of rectum and anal canal [D12.8*05/15/2010 Tobacco use disorder [F17.200] 05/23/2010 Frequency of urination [R35.0] 10/02/2010 11/07/2016 History of prostate cancer [Z85.46] Diarrhea [R19.7] 12/05/2010 09/06/2014 Inguinal neuralgia [M79.2] 03/12/2013 11/07/2016 Rotator cuff impingement syndrome of right shou*04/10/2015 11/19/2019 Medicare annual wellness visit, subsequent [Z00*04/10/2015 06/20/2018 Right-sided low back pain with right-sided scia*10/03/2015 05/15/2016 Essential hypertension [I10] 10/16/2015 DDD (degenerative disc disease), lumbar [M51.36]11/07/2016 Clostridium difficile colitis [A04.72] 05/14/2017 06/20/2018 Inguinal hernia [K40.90] 01/20/2018 06/20/2018 Traumatic complete tear of left rotator cuff [S*11/03/2018 11/19/2019 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 *07/22/2019 11/01/2022 PAD (peripheral artery disease) (HCC) [I73.9] 09/21/2019 Other insomnia [G47.09] 09/22/2019 Anemia [D64.9] 09/24/2019 11/19/2019 Acute respiratory failure with hypoxia (HCC) [J*09/24/2019 11/19/2019 Leucocytosis [D72.829] 09/25/2019 11/19/2019 SDH (subdural hematoma) [S06.5XAA] 09/14/2020 11/01/2022 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] 09/15/2020 History of Clostridium difficile colitis [Z86.1*09/15/2020 11/01/2022 Sinus bradycardia [R00.1] 09/15/2020 Peripheral neuropathy [G62.9] 09/15/2020 Acute postoperative pain [G89.18] 09/20/2020 11/08/2020 Psoriasis [L40.9] 11/28/2020 Colitis [K52.9] 03/18/2022 11/01/2022 SHASHANK (acute kidney injury) (HCC) [N17.9] 03/18/2022 11/01/2022 Encounter Status:Closed by YUKI EVANS on 09/20/23[facility] 09-17-[facility]23 Miscellaneous Notes* Telephone Encounter - Trena Ma RN - 09/17/2023 3:47 PM EST Patient called and states I am not going to use the oxygen machine and I am not paying $30 a monthto have it here. Patient states that he had seven nightmares last night and my sleep is to important. Patient states that [facility] will not take it back until they get the order from the doctor. Patient encouraged to try another night of wearing it and refuses. Trena Ma RN documented in this encounterBarnesville Hospital11-30-2023 NoteHNO ID: [id number] Author: Leigh López Service: ? Author Type: ? Type: Progress Notes Filed: 09/12/2023 12:41 PM Note Text: Tye Vazquez is identified through a medication adherence outreach initiative based on pharmacy claims data from [employer] (insurer) for FREDERIC medication(s). Patient is reviewed 09/12/23 due to medication adherence concerns with the following medications (name, strength, sig): Lisinopril 40mg every day, . Per data/report, last fill date and days supply: Due 08/15/23 Per reconcile dispense, last fill date and days supply: Filled 08/02/23 for 90 days Outcome of review/outreach: (choose outcome source and status) - Filled before Next fill date per reconcile dispense [facility]University [facility]11-30-[facility]23 History of Present illness Narrative* Leigh López - 09/12/2023 12:40 PM EST Tye Vazquez is identified through a medication adherence outreach initiative based on pharmacy claims data from [employer] (insurer) for FREDERIC medication(s). Patient is reviewed 09/12/23 due to medication adherence concerns with the following medications (name, strength, sig): Lisinopril 40mg every day, . Per data/report, last fill date and days supply: Due 08/15/23 Per reconcile dispense, last fill date and days supply: Filled 08/02/23 for 90 days Outcome of review/outreach: (choose outcome source and status) - Filled before Next fill date per reconcile dispense Leigh López documented in this [facility]11-30-2023 NotePatient Outreach (PHPOHE) TYE VAZQUEZ ([id number]) 1940 M Date Time Provider Department 09/12/23 TALON BOLAÑOS PHPOHE During your visit today, we recorded the following information about you: Leigh López 09/12/2023 12:41 PM Signed Tye Vazquez is identified through a medication adherence outreach initiative based on pharmacy claims data from [employer] (insurer) for FREDERIC medication(s). Patient is reviewed 09/12/23 due to medication adherence concerns with the following medications (name, strength, sig): Lisinopril 40mg every day, . Per data/report, last fill date and days supply: Due 08/15/23 Per reconcile dispense, last fill date and days supply: Filled 08/02/23 for 90 days Outcome of review/outreach: (choose outcome source and status) - Filled before Next fill date per reconcile dispense Leigh López Allergies As of Date: 09/12/2023 (No Known Allergies) Date Reviewed: 08/13/2023 Reviewed by: Laverne Juarez MD - Fully Assessed Reason for Visit: Allied Health Visit [5] Cmt: Medication Adherence Outreach Prescriptions as of 09/12/2023 - umeclidinium-vilanterol (ANORO ELLIPTA) 62.5-25 mcg/actuation inhaler Inhale 1 Inhalation as instructed once daily. - chlorthalidone (HYGROTON) 25 mg tablet Take 1 tablet by mouth once daily. - albuterol HFA (VENTOLIN HFA) 90 mcg/actuation inhaler Inhale 2 Puffs as instructed every 4 hours as needed for wheezing/shortness of breath. - doxazosin (CARDURA) 8 mg tablet Take 1 tablet by mouth daily at bedtime. - doxazosin (CARDURA) 4 mg tablet Take 1 tablet by mouth daily at bedtime. Added to 8 mg tablet. - omeprazole (PRILOSEC) 20 mg capsule Take 1 capsule by mouth once daily. - potassium chloride (K-TAB) 10 mEq tablet Take 1 tablet by mouth daily with breakfast. - amLODIPine (NORVASC) 5 mg tablet Take 1 tablet by mouth once daily. - lisinopril (ZESTRIL) 40 mg tablet Take 1 tablet by mouth once daily. - gabapentin (NEURONTIN) 300 mg capsule Take 1 capsule by mouth daily at bedtime for 180 days. - DULoxetine (CYMBALTA) 20 mg capsule Take 2 capsules by mouth once daily. - metoprolol tartrate, short acting, (LOPRESSOR) 50 mg tablet Take 1 tablet by mouth twice daily. - acetaminophen (TYLENOL) 325 mg tablet Take 2 tablets by mouth every 4 hours as needed. Problem List As Of Date 09/12/2023 Noted Resolved Dermatophytosis of foot [B35.3] 11/27/2005 06/14/2017 Esophageal reflux [K21.9] 08/29/2006 HYPERTENSION NOS [I10] 09/02/2006 03/29/2014 Mixed hyperlipidemia [E78.2] 09/02/2006 Ganglion of tendon sheath [M67.40] 03/19/2007 11/07/2016 Unspecified disorder of prostate [N42.9] 06/21/2007 09/06/2014 Inguinal hernia without mention of obstruction *10/11/2008 11/07/2016 Umbilical hernia without mention of obstruction*10/11/2008 11/07/2016 Rotator cuff (capsule) sprain [S43.429A] 09/20/2009 11/07/2016 Malignant neoplasm of prostate (HCC) [C61] 02/07/2010 11/07/2016 Benign neoplasm of rectum and anal canal [D12.8*05/15/2010 Tobacco use disorder [F17.200] 05/23/2010 Frequency of urination [R35.0] 10/02/2010 11/07/2016 History of prostate cancer [Z85.46] Diarrhea [R19.7] 12/05/2010 09/06/2014 Inguinal neuralgia [M79.2] 03/12/2013 11/07/2016 Rotator cuff impingement syndrome of right shou*04/10/2015 11/19/2019 Medicare annual wellness visit, subsequent [Z00*04/10/2015 06/20/2018 Right-sided low back pain with right-sided scia*10/03/2015 05/15/2016 Essential hypertension [I10] 10/16/2015 DDD (degenerative disc disease), lumbar [M51.36]11/07/2016 Clostridium difficile colitis [A04.72] 05/14/2017 06/20/2018 Inguinal hernia [K40.90] 01/20/2018 06/20/2018 Traumatic complete tear of left rotator cuff [S*11/03/2018 11/19/2019 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 *07/22/2019 11/01/2022 PAD (peripheral artery disease) (HCC) [I73.9] 09/21/2019 Other insomnia [G47.09] 09/22/2019 Anemia [D64.9] 09/24/2019 11/19/2019 Acute respiratory failure with hypoxia (HCC) [J*09/24/2019 11/19/2019 Leucocytosis [D72.829] 09/25/2019 11/19/2019 SDH (subdural hematoma) [S06.5XAA] 09/14/2020 11/01/2022 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] 09/15/2020 History of Clostridium difficile colitis [Z86.1*09/15/2020 11/01/2022 Sinus bradycardia [R00.1] 09/15/2020 Peripheral neuropathy [G62.9] 09/15/2020 Acute postoperative pain [G89.18] 09/20/2020 11/08/2020 Psoriasis [L40.9] 11/28/2020 Colitis [K52.9] 03/18/2022 11/01/2022 SHASHANK (acute kidney injury) (HCC) [N17.9] 03/18/2022 11/01/2022 Encounter Status:Closed by LEIGH LÓPEZ on 09/12/23[facility] 09-09-2023 NoteHNO ID: [id number] Author: Ernestine Jefferson RPFT Service: ? 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 Author Type: Respiratory Therapist Type: Progress Notes Filed: 09/09/2023 12:53 PM Note Text: PULM FUNCTION SMARTBLOCK: Provider: Laverne Juarez MD Assisting Tech: Ernestine Jefferson RPFT Oximetry - [facility]ulation[facility] Miscellaneous Notes * Telephone Encounter - Pantea, Esperanza HEAD OF HISTORY - 09/09/2023 11:40 AM EST Patient has appt with SOCIAL SERVICE DIRECTOR 09/09 for O2 recert. Esperanza Darnell LPN * Telephone Encounter - Hortencia Raymundo Ma - 09/04/2023 3:19 PM EST Adrienne from [facility] calling and states she needs [place] to electronically return platform for patient's oxygen documented in this encounterBarnesville Hospital11-15-2023 Miscellaneous Notes* Telephone Encounter - Esperanza Darnell LPN - 08/28/2023 12:11 PM EST Adrienne aware patient will be walked to check for portability. If portables are needed we can send order after his walk test. Esperanza Darnell LPN * Telephone Encounter - Ele Tuttle LPN - 08/28/2023 11:45 AM EST Adrienne with [facility] called. Verified name and date of of patient. Adrienne is asking if nocturnaloxygen can be set up while patient waits for walk testing to be done 09/09/2023. Please review and advise. Ele Tuttle LPN documented in this encounterBarnesville Hospital10-31-2023 History of Present illness Narrative* Laverne Juarez MD - 08/13/2023 1:30 PM EDT Images from the original note were not included. . Respiratory Ivins Note Patient name: Tye Vazquez PCP: Talon Bolaños MD Referring Physician: Precious Almeida CNP Consultation requested by Precious Almeida for an opinion regarding SOB. My final recommendations will be communicated back to the requesting physician by way of shared Medical record or letter to requesting physician via US mail. CC: SOB HPI: Tye Vazquez 83 year old male current smoker with PMH significant for HTN, GERD, HLD, PAD, prostate cancer s/p radiation, being referred for evaluation of SOB. Patient's history dates back approximately 1 year ago when he first noted dyspnea on exertion, especially climbing stairs. He deniesdyspnea with his usual activities or walking at a regular pace. He has cough with clear mucus production that occurs throughout the day but is more prominent in the evening. At times he may hear himself wheeze in the evening but once he is able to expectorate phlegm, the wheezing resolves. He denies any chest pain or pressure. He denies history of recurrent pneumonia or bronchitis. He has never been hospitalized for lung disease. He was recently prescribed albuterol inhaler which he uses twice a day. He has not noted much improvement in his dyspnea or mucus production. Patient is motivated toquit smoking. He was able to quit for 5 years at one point in time as well as 3 years in the past. DATA: PFT 07/2023: Review of PFT shows mild obstruction, improvement in small airways with bronchodilator, hyperinflation and airtrapping and moderate reduction in diffusion. Pattern consistent with emphysema Labs: Most recent CBC normal Imaging / Diagnostic Studies: DATE OF EXAM: Jul 19 2023 12:23PM WOX 5291 - XR CHEST 2V FRONTAL/LAT / CLINICAL HISTORY: Short of breath on exertion Tobacco use disorder MQ: [id number] EXAM DATE/TIME: 07/19/2023 12:23 PM COMPARISON: 10/11/2021. RESULT: Lines, tubes, and devices: None. Lungs and pleura: There is hyperinflation of the lungs suggestive of pulmonary emphysema. There arevague focal fibrotic changes in both lung bases. There are vague 5 mm nodular densities in the lower chest bilaterally suggestive of the nipple shadows. No consolidation. No lung mass. No pleural effusion. No pneumothorax. Cardiomediastinal silhouette: There is tortuosity and atherosclerosis of the descending thoracic aorta. Bones and soft tissues: Unremarkable. IMPRESSION: Stable exam with chronic changes as described above and no definite acute radiographic abnormality. I personally reviewed the images which shows emphysema and chronic changes 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 Clostridium difficile colitis 05/14/2017 DDD (degenerative disc disease), lumbar 11/07/2016 Diarrhea Esophageal reflux 08/29/2006 Essential hypertension, benign Inguinal hernia without mention of obstruction or gangrene, unilateral or unspecified, (not specified as recurrent) 10/11/2008 Mixed hyperlipidemia 09/02/2006 Nonspecific (abnormal) findings on radiological and other examination of abdominal area, including retroperitoneum PAD (peripheral artery disease) (HCC) Prostate cancer (HCC) 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. Traumatic subdural hematoma without loss of consciousness (HCC) 09/14/2020 Umbilical hernia without mention of obstruction or gangrene 10/11/2008 ALLERGIES No Known Allergies chlorthalidone (HYGROTON) 25 mg tablet Take 1 tablet by mouth once daily. albuterol HFA (VENTOLIN HFA) 90 mcg/actuation inhaler Inhale 2 Puffs as instructed every 4 hours asneeded for wheezing/shortness of breath. fluconazole (DIFLUCAN) 150 mg tablet Take 1 tablet by mouth one time a week. doxazosin (CARDURA) 8 mg tablet Take 1 tablet by mouth daily at bedtime. doxazosin (CARDURA) 4 mg tablet Take 1 tablet by mouth daily at bedtime. Added to 8 mg tablet. omeprazole (PRILOSEC) 20 mg capsule Take 1 capsule by mouth once daily. potassium chloride (K-TAB) 10 mEq tablet Take 1 tablet by mouth daily with breakfast. amLODIPine (NORVASC) 5 mg tablet Take 1 tablet by mouth once daily. lisinopril (ZESTRIL) 40 mg tablet Take 1 tablet by mouth once daily. gabapentin (NEURONTIN) 300 mg capsule Take 1 capsule by mouth daily at bedtime for 180 days. DULoxetine (CYMBALTA) 20 mg capsule Take 2 capsules by mouth once daily. metoprolol tartrate, short acting, (LOPRESSOR) 50 mg tablet Take 1 tablet by mouth twice daily. acetaminophen (TYLENOL) 325 mg tablet Take 2 tablets by mouth every 4 hours as needed. Social History Tobacco Use Smoking status: Every Day Packs/day: 0.50 Years: 62.00 Additional pack years: 0.00 Total pack years: 31.00 Types: Cigarettes Start date: 02/22/1961 Smokeless tobacco: Never Tobacco comments: 5-6 per day. 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 1991, 1993. COLONOSCOPY & POLYPECTOMY 05/15/2010 tubular adenomas removed- [place] COLONOSCOPY DIAGNOSTIC 06/05/2022 sigmoid tubular adenoma COLONOSCOPY FLX DX W/COLLJ SPEC WHEN PFRMD 04/26/2014 Colonoscopy COLONOSCOPY FLX DX W/COLLJ SPEC WHEN PFRMD 05/07/2016 Colonoscopy EGD 05/04/2022 LAMINECTOMY W/O FFD > 2 VERT SEG LUMBAR 06/11/2018 [facility] [place] PAST SURGICAL HISTORY OF 2001 bilat cataracts, retina PAST SURGICAL HISTORY OF Left 09/2019 femoral artery PAST SURGICAL HISTORY OF 09/14/2020 CRANIOTOMY FOR EVACUATION OF SUPRATENTORIAL SUBDURAL HEMATOMA RPR 1ST INGUN HRNA AGE 5 YRS/> REDUCIBLE 11/26/2008 left RPR 1ST INGUN HRNA AGE 5 YRS/> REDUCIBLE 01/20/2018 Hernia repair, inguinal right, indirect w/medium mesh plug [facility] RPR UMBILICAL HRNA 5 YRS/> REDUCIBLE 11/26/2008 SEED IMPLANT 05/2010 for prostate cancer SIGMOIDOSCOPY FLX DX W/COLLJ SPEC BR/WA IF PFRMD 12/05/2010 PMH, Social history, family history and surgical history reviewed and updated in EMR REVIEW OF SYSTEMS: CONSTITUTIONAL: No fevers, chills, nightsweats, unintended weight loss HEENT: Denies nasal congestion/sinus symptoms, allergy problems. No morning headaches EYES: No diplopia or blurry vision. CARDIOVASCULAR: No chest pain, palpitations, orthopnea, PND, edema. PULM: See HPI. No nocturnal awakenings from shortness of breath GI: No dysphagia/odynophagia, problematic reflux, constipation, diarrhea : No new urinary complaints, including dysuria, gross hematuria. History of prostate cancer NEURO: No new balance problems. Peripheral neuropathy MUSC-SKEL: No new joint pain, swelling, or erythema. PSY: No concerns regarding depression, anxiety INTEGUMENTARY: No new skin changes or rashes PHYSICAL EXAMINATION: BP 136/92 Wt 152 lb (68.9kg) BP 136/92, P 60, RR 16, SpO2 94% General Appearance: Thin elderly male, NAD. Skin: Skin color, texture, turgor normal, no suspicious rashes or lesions. Head: Normocephalic, no masses, lesions, tenderness or abnormalities. Eyes: Sclera, conjunctiva normal Oropharynx: Dentures, no lesions. Neck: No JVD, no masses, no adenopathy. Lungs: Not labored, hyperresonant to percussion, diminished breath sounds, no wheezes or crackles. Heart: Regular rate and rhythm, no murmurs or gallops. Extremities: No edema or clubbing. Musculoskeletal: No joint deformities or effusions. Neurologic: Alert and oriented, no focal findings. Assessment/Plan: Emphysema -Hyperinflation and air trapping noted on pulmonary function test. Changed inhaled therapy to an oral Ellipta with continued use of albuterol as needed -Smoking cessation is paramount -Oxygen assessment Cigarette smoker -Current smoker with sequelae of COPD/emphysema -Smoking cessation encouraged and patient is motivated to quit. He will quit cold turkey -He does not meet criteria for lung cancer screening based on his age greater than 80 Laverne Juarez MD Respiratory Ivins documented in this encounterBarnesville Hospital10-31-2023 NoteHNO ID: [id number] Author: Laverne Juarez MD Service: ? Author Type: Physician Type: Progress Notes Filed: 08/13/2023 3:25 PM Note Text: . Respiratory Ivins Note Patient name: Tye Vazquez PCP: Talon Bolaños MD Referring Physician: Precious Almeida CNP Consultation requested by Precious Almeida for an opinion regarding SOB. My final recommendations will be communicated back to the requesting physician by way of shared Medical record or letter to requesting physician via US mail. CC: SOB HPI: Tye Vazquez 83 year old male current smoker with PMH significant for HTN, GERD, HLD, PAD, prostate cancer s/p radiation, being referred for evaluation of SOB. Patient's history dates back approximately 1 year ago when he first noted dyspnea on exertion, especially climbing stairs. He denies dyspnea with his usual activities or walking at a regular pace. He has cough with clear mucus production that occurs throughout the day but is more prominent in the evening. At times he may hear himself wheeze in the evening but once he is able to expectorate phlegm, the wheezing resolves. He denies any chest pain or pressure. He denies history of recurrent pneumonia or bronchitis. He has never been hospitalized for lung disease. He was recently prescribed albuterol inhaler which he uses twice a day. He has not noted much improvement in his dyspnea or mucus production. Patient is motivated to quit smoking. He was able to quit for 5 years at one point in time as well as 3 years in the past. DATA: PFT 07/2023: Review of PFT shows mild obstruction, improvement in small airways with bronchodilator, hyperinflation and airtrapping and moderate reduction in diffusion. Pattern consistent with emphysema Labs: Most recent CBC normal Imaging / Diagnostic Studies: DATE OF EXAM: Jul 19 2023 12:23PM WOX [id number] - XR CHEST 2V FRONTAL/LAT / CLINICAL HISTORY: Short of breath on exertion Tobacco use disorder MQ: [id number] EXAM DATE/TIME: 07/19/2023 12:23 PM COMPARISON: 10/11/2021. RESULT: Lines, tubes, and devices: None. Lungs and pleura: There is hyperinflation of the lungs suggestive of pulmonary emphysema. There are vague focal fibrotic changes in both lung bases. There are vague 5 mm nodular densities in the lower chest bilaterally suggestive of the nipple shadows. No consolidation. No lung mass. No pleural effusion. No pneumothorax. Cardiomediastinal silhouette: There is tortuosity and atherosclerosis of the descending thoracic aorta. Bones and soft tissues: Unremarkable. IMPRESSION: Stable exam with chronic changes as described above and no definite acute radiographic abnormality. I personally reviewed the images which shows emphysema and chronic changes 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 Clostridium difficile colitis 05/14/2017 DDD (degenerative disc disease), lumbar 11/07/2016 Diarrhea Esophageal reflux 08/29/2006 Essential hypertension, benign Inguinal hernia without mention of obstruction or gangrene, unilateral or unspecified, (not specified as recurrent) 10/11/2008 Mixed hyperlipidemia 09/02/2006 Nonspecific (abnormal) findings on radiological and other examination of abdominal area, including retroperitoneum PAD (peripheral artery disease) (HCC) Prostate cancer (HCC) 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. Traumatic subdural hematoma without loss of consciousness (HCC) 09/14/2020 Umbilical hernia without mention of obstruction or gangrene 10/11/2008 ALLERGIES No Known Allergies chlorthalidone (HYGROTON) 25 mg tablet Take 1 tablet by mouth once daily. albuterol HFA (VENTOLIN HFA) 90 mcg/actuation inhaler Inhale 2 Puffs as instructed every 4 hours as needed for wheezing/shortness of breath. fluconazole (DIFLUCAN) 150 mg tablet Take 1 tablet by mouth one time a week. doxazosin (CARDURA) 8 mg tablet Take 1 tablet by mouth daily at bedtime. doxazosin (CARDURA) 4 mg tablet Take 1 tablet by mouth daily at bedtime. Added to 8 mg tablet. omeprazole (PRILOSEC) 20 mg capsule Take 1 capsule by mouth once daily. potassium chloride (K-TAB) 10 mEq tablet Take 1 tablet by mouth daily with breakfast. amLODIPine (NORVASC) 5 mg tablet Take 1 tablet by mouth once daily. lisinopril (ZESTRIL) 40 mg tablet Take 1 tablet by mouth once daily. gabapentin (NEURONTIN) 300 mg capsule Take 1 capsule by mouth daily at bedtime for 180 days. DULoxetine (CYMBALTA) 20 mg capsule Take 2 capsules by mouth once daily. metoprolol tartrate, short acting, (LOPRESSOR) 50 mg tablet Take 1 tablet by mouth twice daily. acetaminophen (TYLENOL) 325 mg tablet Take 2 tablets by mouth every 4 hours as needed. Social History Tobacco Use Smoking status: Every Day (more content not included)...[facility]10-24-2023 Miscellaneous Notes* Telephone Encounter - Shannan Carter RN - 08/06/2023 9:24 AM EDT Pt called and is notified of providers results and instructions. Pt voices understanding. Transferred to scheduled to set up appt with Pulmonology. Shannan Carter RN * Telephone Encounter - Precious Almeida APRN.CNP - 08/06/2023 7:45 AM EDT Please let the patient know findings on the lung function test were consistent with COPD. Recommendreferral to pulmonology for further evaluation Precious Almeida APRN.CNP documented in this encounterBarnesville Hospital10-20-2023 History of Present illness Narrative* Ernestine Jefferson RPFT - 08/02/2023 11:51 AM EDT PULM FUNCTION SMARTBLOCK: Provider: Precious Almeida APRN.CNP Assisting Tech: Ernestine Jefferson RPFT Spirometry w/BD: 1 DLCO: 1 LV - Box: 1 documented in this encounterBarnesville Hospital10-06-2023 History of Present illness Narrative* Alisson Nicholson RT(R) - 07/19/2023 12:20 PM EDT Radiology Service Progress Note PATIENT NAME: Tye Vazquez DATE OF SERVICE: July 19, 2023 TIME: 12:16 PM PATIENT IDENTITY VERIFICATION COMPLETED USING TWO (2) IDENTIFIERS: Name and Date of confirmedby patient verbally. FALL SCREENING: Has the patient had 2 falls in the last year or 1 fall with injury or currently using an Ambulatory Assistive Device (Walker, Cane, Wheelchair, Crutches, etc.)? No PATIENT GENDER DATA: Male PATIENT RELEVANT IMPLANT DATA REVIEWED: Not Applicable RADIOLOGY DEPARTMENT: General X-ray: Exam(s) Completed: Chest X-Ray PERIPHERAL IV DATA: Not applicable SIGNED BY: RT Nichelle(R) July 19, 2023 12:16 PM documented in this encounterBarnesville Hospital10-06-2023 Instructions* Patient Instructions* Precious Almeida APRN.CNP - 07/19/2023 11:58 AM EDT Stop hydrochlorothiazide and start chlorthalidone For rash: start Diflucan (fluconazole), take once a week for 4 weeks. Let me know in two weeks if no improvement in rash. documented in this encounterBarnesville Hospital10-06-2023 History of Present illness Narrative* Precious Almeida APRN.CNP - 07/19/2023 11:27 AM EDT CC Patient presents with: F/U 3 Month HPI Tye Vazquez is a 83 year old male who presents to the office for blood pressure follow-up. He has a couple other concerns today as well. HTN-last visit 3 months ago Medication changes: Yes Cardura increased to 12 mg Taking all medications as prescribed: Yes Side effects: No Home BP's: No Last 4 Encounter BP Readings: Date: BP: 07/19/2023 168/86 05/17/2023 141/69[bp eliza average[ 04/29/2023 178/66 04/12/2023 156/71[BP ELIZA AVERAGE[ Last 3 Encounter Wt Readings: Date: Wt: 07/19/2023 67.1 kg (148 lb) 05/17/2023 67.6 kg (149 lb) 04/29/2023 68.5 kg (151 lb) SOB with exertion for years. No significant worsening but would like an albuterol inhaler. Assumes he has emphysema due to history of smoking for the past 60+ years. He has never been specifically evaluated for COPD. He has tried to quit smoking cold turkey and with nicotine patches unsuccessfully.Reports chronic cough and wheezing. Denies hemoptysis, chest pain, edema, palpitations, PND, orthopnea. Rash-groin and inner thighs for months. He attributes to irritation from urinary incontinence and adult diapers. He has tried OTC creams and pills for jock itch that are not working. Rash is itchy but not painful. Urinary incontinence is frequent. Reports hesitance and urgency. Denies hematuria, slow stream, dysuria. He has a history of prostate cancer treated with radiation. Lat PSA was 2020, has not seen urologist for years. REVIEW OF SYSTEMS General: no fevers, no chills, no night sweats, no change in energy, and no significant changes in weight 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 Clostridium difficile colitis 05/14/2017 DDD (degenerative disc disease), lumbar 11/07/2016 Diarrhea Esophageal reflux 08/29/2006 Essential hypertension, benign Inguinal hernia without mention of obstruction or gangrene, unilateral or unspecified, (not specified as recurrent) 10/11/2008 Mixed hyperlipidemia 09/02/2006 Nonspecific (abnormal) findings on radiological and other examination of abdominal area, including retroperitoneum PAD (peripheral artery disease) (HCC) Prostate cancer (HCC) 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. Traumatic subdural hematoma without loss of consciousness (HCC) 09/14/2020 Umbilical hernia without mention of obstruction or gangrene 10/11/2008 PAST SURGICAL HISTORY Procedure Laterality Date ARTHROPLASTY GLENOHUMRL JT HEMIARTHROPLASTY Right 1993 Arthroplasty, shoulder right x 2. 1991, 1993. COLONOSCOPY & POLYPECTOMY 05/15/2010 tubular adenomas removed- [place] COLONOSCOPY DIAGNOSTIC 06/05/2022 sigmoid tubular adenoma COLONOSCOPY FLX DX W/COLLJ SPEC WHEN PFRMD 04/26/2014 Colonoscopy COLONOSCOPY FLX DX W/COLLJ SPEC WHEN PFRMD 05/07/2016 Colonoscopy EGD 05/04/2022 LAMINECTOMY W/O FFD > 2 VERT SEG LUMBAR 06/11/2018 [facility] [place] PAST SURGICAL HISTORY OF 2001 bilat cataracts, retina PAST SURGICAL HISTORY OF Left 09/2019 Groin surgery PAST SURGICAL HISTORY OF 09/14/2020 CRANIOTOMY FOR EVACUATION OF SUPRATENTORIAL SUBDURAL HEMATOMA RPR 1ST INGUN HRNA AGE 5 YRS/> REDUCIBLE 11/26/2008 left RPR 1ST INGUN HRNA AGE 5 YRS/> REDUCIBLE 01/20/2018 Hernia repair, inguinal right, indirect w/medium mesh plug [facility] RPR UMBILICAL HRNA 5 YRS/> REDUCIBLE 11/26/2008 SEED IMPLANT 05/2010 for prostate cancer SIGMOIDOSCOPY FLX DX W/COLLJ SPEC BR/WA IF PFRMD 12/05/2010 ALLERGIES Patient has no known allergies. MEDICATIONS doxazosin (CARDURA) 8 mg tablet Take 1 tablet by mouth daily at bedtime. doxazosin (CARDURA) 4 mg tablet Take 1 tablet by mouth daily at bedtime. Added to 8 mg tablet. omeprazole (PRILOSEC) 20 mg capsule Take 1 capsule by mouth once daily. potassium chloride (K-TAB) 10 mEq tablet Take 1 tablet by mouth daily with breakfast. amLODIPine (NORVASC) 5 mg tablet Take 1 tablet by mouth once daily. lisinopril (ZESTRIL) 40 mg tablet Take 1 tablet by mouth once daily. gabapentin (NEURONTIN) 300 mg capsule Take 1 capsule by mouth daily at bedtime for 180 days. DULoxetine (CYMBALTA) 20 mg capsule Take 2 capsules by mouth once daily. metoprolol tartrate, short acting, (LOPRESSOR) 50 mg tablet Take 1 tablet by mouth twice daily. hydroCHLOROthiazide (HYDRODIURIL, ESIDRIX) 12.5 mg capsule Take 1 capsule by mouth once daily. acetaminophen (TYLENOL) 325 mg tablet Take 2 tablets by mouth every 4 hours as needed. FAMILY HISTORY Problem Relation Age of Onset Diabetes Brother skin cancer Prostate Cancer Brother Stroke Mother Blood Disease Father Coronary Artery Disease Brother other (Other) Brother paraplegia No Ocular Disease Other Social History Tobacco Use Smoking status: Every Day Packs/day: 0.50 Years: 52.00 Additional pack years: 0.00 Total pack years: 26.00 Types: Cigarettes Start date: 02/22/1961 Smokeless tobacco: Never Tobacco comments: 5-6 per day Vaping Use Vaping Use: Never used Substance Use Topics Alcohol use: Yes Alcohol/week: 7.0 standard drinks of alcohol Types: 7 Glasses of Wine (5oz) per week Drug use: No BP 168/86 Pulse 91 Resp 22 Wt 67.1 kg (148 lb) SpO2 (!) 87% BMI 24.66 kg/m Physical Exam Vitals reviewed. Constitutional: General: He is not in acute distress. Appearance: Normal appearance. He is not ill-appearing. Cardiovascular: Rate and Rhythm: Normal rate and regular rhythm. Pulses: Normal pulses. Heart sounds: Normal heart sounds, S1 normal and S2 normal. No murmur heard. Pulmonary: Effort: Pulmonary effort is normal. Breath sounds: Normal breath sounds. Decreased air movement present. No wheezing, rhonchi or rales. Musculoskeletal: Right lower leg: No edema. Left lower leg: No edema. Neurological: Mental Status: He is alert. DATA REVIEWED: Most recent labs and imaging results. ASSESSMENT/PLAN: 1. Essential hypertension - ICD9: 401.9, ICD10: I10 (primary diagnosis) - Uncontrolled - Continue current medications - Stop HCTZ and start chlorthalidone 25 mg daily - Recommend home blood pressure monitoring, to bring results to next visit - Encouraged sodium restriction, DASH or Mediterranean diet - follow-up in one month, if BP still elevated may need to consider referral to hypertension specialist 2. Short of breath on exertion - ICD9: 786.05, ICD10: R06.02 Suspect COPD Evaluate further with: - SPIROMETRY - BASELINE AND POST DILATOR - LUNG VOLUMES - LUNG DIFFUSION CAPACITY (DLCO) - XR CHEST 2V FRONTAL/LAT 3. Rash - ICD9: 782.1, ICD10: R21 Intertrigo secondary to urinary incontinence. Start Diflucan weekly x 4 weeks, follow-up if rash does not resolve 4. Tobacco use disorder - ICD9: 305.1, ICD10: F17.200 - Cessation encouraged. - Physiologic and physical aspects of tobacco addiction as well as strategies for quitting were discussed. - Counseling was given focusing on the harmful effects of this addiction especially given the patient's medical condition(s) which will be worsened because of the chemicals in tobacco. - declined medication at this time - SPIROMETRY - BASELINE AND POST DILATOR - LUNG VOLUMES - LUNG DIFFUSION CAPACITY (DLCO) - XR CHEST 2V FRONTAL/LAT 5. Urinary incontinence, unspecified type - ICD9: 788.30, ICD10: R32 - CONSULT TO UROLOGY - PSA/PROSTSPECAG DIAG - URINALYSIS, WITH MICROSCOPIC 6. History of prostate cancer - ICD9: V10.46, ICD10: Z85.46 As above - CONSULT TO UROLOGY - PSA/PROSTSPECAG DIAG Prescription instructions reviewed with patient as applicable. Potential red flag symptoms discussed with the patient. Reviewed appropriate action plan to take if red flag symptoms occur. Patient agreeable to treatment plan Precious Almeida APRN.CNP documented in this encounterBarnesville Hospital09-29-2023 Miscellaneous Notes* Telephone Encounter - Emperatriz Davies LPN - 07/12/2023 9:42 AM EDT Patient has been identified by name and date of : Patient phones for refill(s): Requested Prescriptions Pending Prescriptions Disp Refills doxazosin (CARDURA) 8 mg tablet 90 tablet 3 Sig: Take 1 tablet by mouth daily at bedtime. doxazosin (CARDURA) 4 mg tablet 30 tablet 2 Sig: Take 1 tablet by mouth daily at bedtime. Added to 8 mg tablet. Date of last office visit in primary care: 05/17/2023, has appt 07/25/2023 Last 2 Encounter Wt Readings: Date: Wt: 05/17/2023 67.6 kg (149 lb) 04/29/2023 68.5 kg (151 lb) Previous labs/tests for medication: Blood Pressure: BUN (mg/dL) Date Value 10/16/2022 16 09/18/2021 14 Sodium (mmol/L) Date Value 10/16/2022 137 09/18/2021 139 Last 1 Encounter BP Readings: Date: BP: 05/17/2023 141/69[bp eliza average[ Please advise. Thank you. Emperatriz Davies LPN documented in this encounterBarnesville Hospital08-23-2023 Miscellaneous Notes* Telephone Encounter - Liv Molina LPN - 06/05/2023 11:45 AM EDT Patient has been identified by name and date of : Yes Patient phones for refill(s): Requested Prescriptions Pending Prescriptions Disp Refills omeprazole (PRILOSEC) 20 mg capsule 90 capsule 3 Sig: Take 1 capsule by mouth once daily. potassium chloride (K-TAB) 10 mEq tablet 90 tablet 1 Sig: Take 1 tablet by mouth daily with breakfast. Date of last office visit in primary care: 05/17/2023 3 month follow-up: 07/25/2023 Last 2 Encounter Wt Readings: Date: Wt: 05/17/2023 67.6 kg (149 lb) 04/29/2023 68.5 kg (151 lb) Previous labs/tests for medication: Potassium: No components found for: POT Please advise. Thank you. Liv Molina LPN * Telephone Encounter - Alisson López - 06/05/2023 11:01 AM EDT Patient has been identified by name and date of : Yes Last office visit in this department: 05/17/2023 RX INSTRUCTIONS: Patient aware RX will be sent to pharmacy. No need to notify patient. Patient phones requesting refills as follows: Requested Prescriptions Pending Prescriptions Disp Refills omeprazole (PRILOSEC) 20 mg capsule 90 capsule 3 Sig: Take 1 capsule by mouth once daily. potassium chloride (K-TAB) 10 mEq tablet 90 tablet 1 Sig: Take 1 tablet by mouth daily with breakfast. Please review and advise. Alisson López documented in this encounterBarnesville Hospital08-04-2023 History of Present illness Narrative* Older, AIMEE Lang.OLIVE PITTER - 05/17/2023 12:58 PM EDT CC Patient presents with: 1 month follow up HPI Tye Vazquez is a 83 year old male who presents to the office for blood pressure. His visit todayis for follow-up. Patient was last seen for this approximately 1 month ago. Medication changes: Yes Cardura increased to 12 mg daily He had also decreased Norvasc to 5 mg daily on his one week prior to follow-up last month because he heard it about the potential for neuropathy with this medication. He was advised he could discontinue it completely however neuropathy did not improve so he decided to stay on the 5 mg dose. Taking all medications as prescribed: Yes except he has been out of Lisinopril for almost two weeksnow Side effects: No Home BP's: Yes 150's/80's on average Denies: headache, chest pain, palpitations, dyspnea, and peripheral edema. Last 4 Encounter BP Readings: Date: BP: 05/17/2023 178/72 04/29/2023 178/66 04/12/2023 156/71[BP ELIZA AVERAGE[ 02/27/2023 146/84 Last 3 Encounter Wt Readings: Date: Wt: 05/17/2023 67.6 kg (149 lb) 04/29/2023 68.5 kg (151 lb) 04/12/2023 67.4 kg (148 lb 9.6 oz) He was diagnosed with Shingles on the right arm in [facility] care on 04/29. Prescribed Valtrex. Right arm pain has improved and rash resolved. REVIEW OF SYSTEMS See HPI 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 Clostridium difficile colitis 05/14/2017 DDD (degenerative disc disease), lumbar 11/07/2016 Diarrhea Esophageal reflux 08/29/2006 Essential hypertension, benign Inguinal hernia without mention of obstruction or gangrene, unilateral or unspecified, (not specified as recurrent) 10/11/2008 Mixed hyperlipidemia 09/02/2006 Nonspecific (abnormal) findings on radiological and other examination of abdominal area, including retroperitoneum PAD (peripheral artery disease) (HCC) Prostate cancer (HCC) 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. Traumatic subdural hematoma without loss of consciousness (HCC) 09/14/2020 Umbilical hernia without mention of obstruction or gangrene 10/11/2008 PAST SURGICAL HISTORY Procedure Laterality Date ARTHROPLASTY GLENOHUMRL JT HEMIARTHROPLASTY Right 1993 Arthroplasty, shoulder right x 2. 1991, 1993. 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 MEDICATIONS lisinopril (ZESTRIL) 40 mg tablet Take 1 tablet by mouth once daily. doxazosin (CARDURA) 4 mg tablet Take 1 tablet by mouth daily at bedtime. Added to 8 mg tablet. gabapentin (NEURONTIN) 300 mg capsule Take 1 capsule by mouth daily at bedtime for 180 days. DULoxetine (CYMBALTA) 20 mg capsule Take 2 capsules by mouth once daily. metoprolol tartrate, short acting, (LOPRESSOR) 50 mg tablet Take 1 tablet by mouth twice daily. hydroCHLOROthiazide (HYDRODIURIL, ESIDRIX) 12.5 mg capsule Take 1 capsule by mouth once daily. potassium chloride (K-TAB) 10 mEq tablet Take 1 tablet by mouth daily with breakfast. doxazosin (CARDURA) 8 mg tablet Take 1 tablet by mouth daily at bedtime. omeprazole (PRILOSEC) 20 mg capsule Take 1 capsule by mouth once daily. acetaminophen (TYLENOL) 325 mg tablet Take 2 tablets by mouth every 4 hours as needed. FAMILY HISTORY Problem Relation Age of Onset Diabetes Brother skin cancer Prostate Cancer Brother Stroke Mother Blood Disease Father Coronary Artery Disease Brother other (Other) Brother paraplegia No Ocular Disease Other Social History Tobacco Use Smoking status: Every Day Packs/day: 0.50 Years: 52.00 Total pack years: 26.00 Types: Cigarettes Start date: [birth year]22/1961 Smokeless tobacco: Never Tobacco comments: 5-6 per day Vaping Use Vaping Use: Never used Substance Use Topics Alcohol use: Yes Alcohol/week: 7.0 standard drinks of alcohol Types: 7 Glasses of Wine (5oz) per week Drug use: No PHYSICAL EXAM BP 178/72 Pulse (!) 55 Resp 20 Wt 67.6 kg (149 lb) BMI 24.82 kg/m General Appearance: well appearing, in no acute distress, alert Pysch: mood and affect broad and appropriate ASSESSMENT/PLAN: 1. Essential hypertension - ICD9: 401.9, ICD10: I10 (primary diagnosis) - Improving control - Factors affecting control: out of Lisinopril for almost two weeks - Continue current medications - Recommend home blood pressure monitoring, to bring results to next visit - Encouraged sodium restriction, DASH or Mediterranean diet - recheck in 2 months as scheduled or sooner if needed - AMLODIPINE 5 MG TABLET 2. Herpes zoster without complication - ICD9: 053.9, ICD10: B02.9 Resolved Prescription instructions reviewed with patient as applicable. Potential red flag symptoms discussed with the patient. Reviewed appropriate action plan to take if red flag symptoms occur. Patient agreeable to treatment plan During this patient visit I have spent approximately 20 minutes in counseling regarding treatment options, medications, and coordinating care. Precious Almeida APRN.MARIAH documented in this encounterBarnesville Hospital08-01-2023 Miscellaneous Notes* Telephone Encounter - Liv Molina LPN - 05/14/2023 1:11 PM EDT Spoke to Tye, verified that he does take Lisinopril 40mg, once daily in the morning, has not missed any doses. Patient will check with pharmacy in next 24- 48 hours. Liv Molina LPN * Telephone Encounter - Paola Carrasco - 05/14/2023 12:10 PM EDT Patient has been identified by name and date of : Yes Last office visit in this department: Visit date not found RX INSTRUCTIONS: Patient aware RX will be sent to pharmacy. No need to notify patient. Patient phones requesting refills as follows: Spoke to Thea at [facility] pharmacy and since patientdid not fill in the last 6 mo script sent on 10/16/2022 has and patient will need a new script sent. Requested Prescriptions Pending Prescriptions Disp Refills lisinopril (ZESTRIL) 40 mg tablet 90 tablet 3 Sig: Take 1 tablet by mouth once daily. Please review and advise. Paola Abebe documented in this encounterBarnesville Hospital07-17-2023 History of Present illness Narrative* Graeme Hughes MD - 04/29/2023 4:02 PM EDT Patient presents with: Rash: Started on R hand, now moved up arm to shoulder x2 weeks HPI: Rash: Location: right arm from wrist to shoulder Duration: 2-3 weeks Pruritis: No Pain: Yes Change: NO Bleeding/ulceration/blister/pustule: blistered Contacts with rash: No Treatment: antibiotic ointment, ibuprofen MEDICATIONS: doxazosin (CARDURA) 4 mg tablet Take 1 tablet by mouth daily at bedtime. Added to 8 mg tablet. gabapentin (NEURONTIN) 300 mg capsule Take 1 capsule by mouth daily at bedtime for 180 days. DULoxetine (CYMBALTA) 20 mg capsule Take 2 capsules by mouth once daily. metoprolol tartrate, short acting, (LOPRESSOR) 50 mg tablet Take 1 tablet by mouth twice daily. hydroCHLOROthiazide (HYDRODIURIL, ESIDRIX) 12.5 mg capsule Take 1 capsule by mouth once daily. lisinopril (ZESTRIL, PRINIVIL) 40 mg tablet Take 1 tablet by mouth once daily. potassium chloride (K-TAB) 10 mEq tablet Take 1 tablet by mouth daily with breakfast. doxazosin (CARDURA) 8 mg tablet Take 1 tablet by mouth daily at bedtime. omeprazole (PRILOSEC) 20 mg capsule Take 1 capsule by mouth once daily. acetaminophen (TYLENOL) 325 mg tablet Take 2 tablets by mouth every 4 hours as needed. ALLERGIES: ALLERGIES No Known Allergies VITALS: BP 178/66 Pulse 62 Temp 36.6 C (97.9 F) Resp 24 Wt 68.5 kg (151 lb) SpO2 95% BMI 25.16 kg/m PHYSICAL EXAM: GEN: pleasant, no acute distress, alert SKIN: Right arm: clusters of shallow dry ulcerated lesions in patches from the thenar wrist to lateral upper arm. ASSESSMENT/PLAN: 1. Herpes zoster without complications - ICD9: 053.9, ICD10: B02.9 Shingles discussed. Shingles is a viral rash from prior chicken pox infection. Early antiviral medicine can reduce the length and severity of the shingles outbreak. The rash is contagious until all blisters or sores are dry. The site of the rash may have scaring (color change) after the infection is resolved. Pain, burning, or tingling from the rash may continue for days to several months after the infection-typically a few weeks. There is a vaccine that can reduce the chance of future shingles outbreaks, but for a fewyears after a shingles episode it probably does not provide benefit. He is beyond the contagious stage; treatment pain relief at this point. He may increase gabapentin twice a day (currently only able to tolerate 1 tablet at bedtime because of drowsiness). Continue Cymbalta. He also take [id number] NSAID. Graeme Hughes MD documented in this encounterBarnesville Hospital06-30-[facility]23 History of Present illness Narrative* Talon Bolaños MD - 04/12/2023 11:57 AM EDT This note was created using [employer]. Subjective Tye Vazquez is a 83 year old male. He saw a doctor on TV discussing neuropathy and amlodipine was mentioned as a cause, so reduced amlodipine on his own to 10 mg 1/2 tablet daily several weeks ago. He wants to get off amlodipine completely, as he has been on it too long. His hypertension was notcontrolled. Neuropathy was stable. Review of Systems Constitutional: Negative for fatigue and unexpected weight change. Respiratory: Negative for cough, chest tightness and shortness of breath. Cardiovascular: Negative for chest pain, palpitations and leg swelling. Gastrointestinal: Negative for constipation and diarrhea. Genitourinary: Negative for difficulty urinating. Musculoskeletal: Positive for myalgias. Neurological: Negative for dizziness and headaches. ACTIVE PROBLEM LIST Esophageal Reflux Mixed Hyperlipidemia Benign Neoplasm of Rectum and Anal Canal Tobacco Use Disorder History of Prostate Cancer Essential Hypertension Ddd (Degenerative Disc Disease), Lumbar Pad (Peripheral Artery Disease) (Hcc) Other Insomnia Incomplete Rbbb Sinus Bradycardia Peripheral Neuropathy Psoriasis Social History Tobacco Use Smoking status: Every Day Packs/day: 0.50 Years: 52.00 Pack years: 26.00 Types: Cigarettes Start date: 02/22/1961 Smokeless tobacco: Never Tobacco comments: 5-6 per day Vaping Use Vaping Use: Never used Substance Use Topics Alcohol use: Yes Alcohol/week: 7.0 standard drinks Types: 7 Glasses of Wine (5oz) per week Drug use: No Current Outpatient Medications Medication Sig gabapentin (NEURONTIN) 300 mg capsule Take 1 capsule by mouth daily at bedtime for 180 days. amLODIPine (NORVASC) 10 mg tablet Take 1 tablet by mouth once daily. DULoxetine (CYMBALTA) 20 mg capsule Take 2 capsules by mouth once daily. metoprolol tartrate, short acting, (LOPRESSOR) 50 mg tablet Take 1 tablet by mouth twice daily. hydroCHLOROthiazide (HYDRODIURIL, ESIDRIX) 12.5 mg capsule Take 1 capsule by mouth once daily. lisinopril (ZESTRIL, PRINIVIL) 40 mg tablet Take 1 tablet by mouth once daily. potassium chloride (K-TAB) 10 mEq tablet Take 1 tablet by mouth daily with breakfast. doxazosin (CARDURA) 8 mg tablet Take 1 tablet by mouth daily at bedtime. omeprazole (PRILOSEC) 20 mg capsule Take 1 capsule by mouth once daily. acetaminophen (TYLENOL) 325 mg tablet Take 2 tablets by mouth every 4 hours as needed. No current facility-administered medications for this visit. Objective BP 156/71 Pulse (!) 58 Temp 36.6 C (97.8 F) (Temporal) Resp 20 Wt 67.4 kg (148 lb 9.6 oz) SpO2 96% BMI 24.76 kg/m Physical Exam Constitutional: General: He is not in acute distress. Appearance: He is not ill-appearing. Cardiovascular: Rate and Rhythm: Regular rhythm. Bradycardia present. Heart sounds: No murmur heard. No gallop. Pulmonary: Breath sounds: Normal breath sounds. No wheezing or rales. Musculoskeletal: Right lower leg: No edema. Left lower leg: No edema. Neurological: General: No focal deficit present. Mental Status: He is alert. Assessment and Plan 1. Idiopathic peripheral neuropathy - ICD9: 356.9, ICD10: G60.9 (primary diagnosis) We reviewed neuropathy side effect listed as <1%. He insisted on stopping amlodipine. 2. Essential hypertension - ICD9: 401.9, ICD10: I10 Poor control. - Shared medical decision making was done. He did not tolerate clonidine in 2009. Hydralazine can also cause paresthesias. Labetalol or carvedilol possible if metoprolol discontinued. - We agreed the simplest action is to increase doxazosin to 12 mg nightly. Discussed medication dosage, usage, goals of therapy, and side effects. - DOXAZOSIN 4 MG TABLET - After 3 days of increased doxazosin, he will stop the amlodipine 10 mg 1/2 tablet daily. - Monitor BP at home. Call for concerns. 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 - He was also advised to stop baby aspirin taken for prevention. Talon Bolaños MD * Carline Jarvis MA - 04/12/2023 11:43 AM EDT BP Manual readin/86 Pulse: 63 LEFT arm regular cuff BP Eliza Average: 156/71 Pulse: 58 RIGHT arm regular cuff 1. 175/71 Pulse: 59 2. 171/71 Pulse: 58 3. 146/72 Pulse: 57 4. 150/69 Pulse: 60 BP ELIZA AVERAGE: 156/71 Pulse: 58 documented in this encounterBarnesville Hospital06-02-2023 Miscellaneous Notes* Telephone Encounter - Abdiel Layne Ma - 03/15/2023 3:48 PM EDT Patient notified, verbalized understanding. Appointment moved to end of this month to discuss. * Telephone Encounter - Precious Almeida APRN.CNP - 03/15/2023 3:04 PM EDT Continue with Norvasc for now, can discuss at next office visit or schedule sooner appointment to discuss Precious Almeida APRN.CNP * Telephone Encounter - Emperatriz Davies LPN - 03/14/2023 1:07 PM EDT Patient calling he is having neuropathy problems in his feet and had researched that the Amlodipinemay be causing that problem. Patient was asking if he could be put on another medication? If not hewould need new rx he is out of refills. Patient aware PCP is out of office. Pending other rx neededalso. Patient said he is taking one Gabapentin at bedtime not 2. Please advise Patient has been identified by name and date of : Patient phones for refill(s): Requested Prescriptions Pending Prescriptions Disp Refills gabapentin (NEURONTIN) 300 mg capsule 180 capsule 1 Sig: Take 2 capsules by mouth daily at bedtime for 180 days. amLODIPine (NORVASC) 10 mg tablet 90 tablet 3 Sig: Take 1 tablet by mouth once daily. Date of last office visit in primary care: 12/14/2022, has appt 06/19/2023 Last 2 Encounter Wt Readings: Date: Wt: 02/27/2023 68.7 kg (151 lb 6.4 oz) 12/14/2022 68 kg (150 lb) Previous labs/tests for medication: Blood Pressure: BUN (mg/dL) Date Value 10/16/2022 16 09/18/2021 14 Sodium (mmol/L) Date Value 10/16/2022 137 09/18/2021 139 Last 1 Encounter BP Readings: Date: BP: 02/27/2023 146/84 Please advise. Thank you. Emperatriz Davies LPN documented in [place] encounterDavid [place]ille [id number] History of Present illness Narrative* Shannan Weber (Manager Planning) - 01/24/2023 4:27 PM EDT Tye Vazquez is identified through a medication adherence outreach initiative based on pharmacy claims data from [employer] (insurer) for [facility] medication(s). Patient is reviewed 01/24/23 due to medication adherence concerns with the following medications (name, strength, sig): Lisinopril 40mg, QD. Per data/report, last fill date and days supply: due 01/13/23 Per reconcile dispense, last fill date and days supply: 10/15/22 for 90 day supply Per call to pharmacy, last picked up date and days supply: Prescription was returned to stock afternot being picked up. Contacted patient: Clari message sent reminding to fill. Outcome of review/outreach: (choose outcome source and status) - per call to pharmacy med was RTS after not being picked up. Clari message sent to pt. Shannan Weber ([employer]) documented in this encounterBarnesville Hospital03-03-2023 History of Present illness Narrative* Talon Bolaños MD - 12/14/2022 1:42 PM EST This note was created using [employer]. Subjective Tye Vazquez is a 82 year old male. His hypertension and lipids were controlled. He continued to smoke. He only took one gabapentin since this made him sleepy. Duloxetine was not helping much to date, but no side effects were noted. He mainly had pain in his calves at night. Review of Systems Constitutional: Negative. Respiratory: Negative. Cardiovascular: Negative. Gastrointestinal: Negative. Genitourinary: Negative. Musculoskeletal: Positive for myalgias. Neurological: Negative. Psychiatric/Behavioral: Negative. ACTIVE PROBLEM LIST Esophageal Reflux Mixed Hyperlipidemia Benign Neoplasm of Rectum and Anal Canal Tobacco Use Disorder History of Prostate Cancer Essential Hypertension Ddd (Degenerative Disc Disease), Lumbar Pad (Peripheral Artery Disease) (Hcc) Other Insomnia Incomplete Rbbb Sinus Bradycardia Peripheral Neuropathy Psoriasis Social History Tobacco Use Smoking status: Every Day Packs/day: 0.50 Years: 52.00 Pack years: 26.00 Types: Cigarettes Start date: 02/22/1961 Smokeless tobacco: Never Tobacco comments: 5-6 per day Vaping Use Vaping Use: Never used Substance Use Topics Alcohol use: Yes Alcohol/week: 7.0 standard drinks Types: 7 Glasses of Wine (5oz) per week Drug use: No Current Outpatient Medications Medication Sig DULoxetine (CYMBALTA) 20 mg capsule Take 1 capsule by mouth once daily. mometasone (ELOCON) 0.1 % cream Apply to affected area once daily. As directed. hydroCHLOROthiazide (HYDRODIURIL, ESIDRIX) 12.5 mg capsule Take 1 capsule by mouth once daily. lisinopril (ZESTRIL, PRINIVIL) 40 mg tablet Take 1 tablet by mouth once daily. potassium chloride (K-TAB) 10 mEq tablet Take 1 tablet by mouth daily with breakfast. doxazosin (CARDURA) 8 mg tablet Take 1 tablet by mouth daily at bedtime. gabapentin (NEURONTIN) 300 mg capsule Take 2 capsules by mouth daily at bedtime for 180 days. omeprazole (PRILOSEC) 20 mg capsule Take 1 capsule by mouth once daily. metoprolol tartrate, short acting, (LOPRESSOR) 50 mg tablet Take 0.5 tablets by mouth twice daily. (Patient taking differently: Take 50 mg by mouth.) amLODIPine (NORVASC) 10 mg tablet Take 1 tablet by mouth once daily. acetaminophen (TYLENOL) 325 mg tablet Take 2 tablets by mouth every 4 hours as needed. No current facility-administered medications for this visit. Objective BP 126/58 (BP Site: Left Arm, BP Position: Sitting) Pulse 61 Resp 18 Ht 165 cm (5' 4.96 ) Wt 68 kg (150 lb) SpO2 96% BMI 24.99 kg/m Physical Exam Constitutional: General: He is not in acute distress. Appearance: He is not ill-appearing. Cardiovascular: Rate and Rhythm: Normal rate and regular rhythm. Heart sounds: No murmur heard. No gallop. Pulmonary: Effort: Pulmonary effort is normal. Breath sounds: Normal breath sounds. Abdominal: Palpations: Abdomen is soft. Tenderness: There is no abdominal tenderness. Musculoskeletal: General: No swelling or tenderness. Neurological: General: No focal deficit present. Mental Status: He is alert. Gait: Gait normal. Psychiatric: Mood and Affect: Mood normal. Assessment and Plan 1. Medicare annual wellness visit, subsequent - ICD9: V70.0, ICD10: Z00.00 (primary diagnosis) See other note. 2. Idiopathic peripheral neuropathy - ICD9: 356.9, ICD10: G60.9 Dose increased. - DULOXETINE 20 MG CAPSULE,DELAYED RELEASE. Take two capsules daily. - Continue GABAPENTIN (He takes only one capsule at bedtime). 3. Essential hypertension - ICD9: 401.9, ICD10: I10 - good control - METOPROLOL TARTRATE 50 MG TABLET 4. PAD (peripheral artery disease) (HCC) - ICD9: 443.9, ICD10: I73.9 Stable. 5. Mixed hyperlipidemia - ICD9: 272.2, ICD10: E78.2 - good control - Continue current medication. 6. Tobacco use disorder - ICD9: 305.1, ICD10: F17.200 - Cessation encouraged. 7. Need for influenza vaccination - ICD9: V04.81, ICD10: Z23 - INFLUENZA SEASONAL QUADRIVALENT HIGH DOSE AGE 65+ Talon Bolaños MD * Talon Bolaños MD - 12/14/2022 1:34 PM EST Tye Vazquez is a 82 year old male here for a Medicare Subsequent Annual Wellness Visit Health Risk Assessment In general, health is: Very good Concerns with balance:Not at all Concerns with teeth or dentures:Not at all Concerns with sexual function:Not at all [place] anxious, stressed, angry, irritable, lonely, isolated, or had thoughts of hurting themself: Not at all Has little interest or pleasure in doing things: Not at all Bothered by feeling down, depressed, or hopeless: Not at all Needs help with grocery shopping, cooking, housework, bathing, grooming, dressing, eating, sitting or standing, walking, using the toilet, handling finances, taking medications, using the telephone, or driving: No Following safety precautions in the home environment and vehicle: removed throw rugs from floors, installed grab bars in the bathroom, handrails in stairwells, having adequate lighting, wearing seatbelt at all times?: Yes Smokes cigarettes, vapes, or chew tobacco: Yes, but I'm not ready to quit Eats healthy foods including fruits, vegetables, whole grains, and fiber-rich foods: Nearly every day Number of days per week engages in exercise: 0 days Average alcohol consumption: 4 or more times a week Current Providers Specialists: I have reviewed specialist-related care of the patient in the medical record. Current care team: Patient Care Team: Talon Bolaños MD as PCP - General (Internal Medicine) Outside specialists seen: [facility] [place] Medical/Family history review Reviewed and updated problem list, medical/surgical/family/social history, medications, and allergies. Opioid use review Patient is not currently using opioids. Depression screening Depression Screening PHQ-2 Score PHQ-9 Score 11/01/2022 0 - Depression screening tool completed and reviewed. Based on score and interview, patient is not at risk for depression. Screening tool discussed with patient, and I recommended no further interventionat this time. Cognitive screening Mini Cog Score: Score: 5 Cognitive screening reviewed and no further action needed (score 3-5) Functional Observation Was the patient's timed Up & Go test unsteady or ? 12 seconds? No Advance Care Planning End of Life planning discussed, including patient's advanced directive wishes: Yes Measurements BP 132/74 Pulse 61 Resp 18 Ht 5' 4.961 (1.65m) Wt 150 lb (68.0kg) SpO2 96% BMI 24.99 kg/(m^2). Visual acuity (required for Welcome to Medicare): follows with optometry/ophthalmology and Right: 20/30 Left: 20/ 40 Both: 20/40 Hearing Evaluation: within normal limits Assessment/Plan - Counseled on healthy diet and regular exercise - Fall avoidance - Vaccines recommended Influenza - Depression screening - Alcohol misuse screening and counseling documented in this encounterBarnesville Hospital01-19-2023 History of Present illness Narrative* Talon Bolaños MD - 11/01/2022 11:57 AM EST This note was created using [employer]. Subjective Patient presents with: Musculoskeletal Problem Tye Vazquez is a 82 year old male. He complained of ongoing chronic pain of his legs from the knees down. His legs felt painfully cold even though they were warm to touch. Other symptoms were stinging and burning, as well as numbness of the feet. He had evaluation by vascular in 2020, and was referred to neurology who felt his symptoms were more vascular. EMG was none contributory. His pain was constant, regardless of activity or rest. Gabapentin helped, but he did not tolerate gabapentin inthe morning. Review of Systems Constitutional: Negative. Respiratory: Negative. Cardiovascular: Negative. Gastrointestinal: Negative. Musculoskeletal: Negative for gait problem. ACTIVE PROBLEM LIST Esophageal Reflux Mixed Hyperlipidemia Benign Neoplasm of Rectum and Anal Canal Tobacco Use Disorder History of Prostate Cancer Essential Hypertension Ddd (Degenerative Disc Disease), Lumbar Pad (Peripheral Artery Disease) (Hcc) Other Insomnia Incomplete Rbbb Sinus Bradycardia Peripheral Neuropathy Psoriasis Current Outpatient Medications Medication Sig hydroCHLOROthiazide (HYDRODIURIL, ESIDRIX) 12.5 mg capsule Take 1 capsule by mouth once daily. lisinopril (ZESTRIL, PRINIVIL) 40 mg tablet Take 1 tablet by mouth once daily. potassium chloride (K-TAB) 10 mEq tablet Take 1 tablet by mouth daily with breakfast. doxazosin (CARDURA) 8 mg tablet Take 1 tablet by mouth daily at bedtime. gabapentin (NEURONTIN) 300 mg capsule Take 2 capsules by mouth daily at bedtime for 180 days. omeprazole (PRILOSEC) 20 mg capsule Take 1 capsule by mouth once daily. metoprolol tartrate, short acting, (LOPRESSOR) 50 mg tablet Take 0.5 tablets by mouth twice daily. (Patient taking differently: Take 50 mg by mouth.) amLODIPine (NORVASC) 10 mg tablet Take 1 tablet by mouth once daily. acetaminophen (TYLENOL) 325 mg tablet Take 2 tablets by mouth every 4 hours as needed. lactobacillus rhamnosus (CULTURELLE) 10 billion cell capsule Take 1 capsule by mouth once daily for10 days. (Patient not taking: Reported on 11/01/2022) No current facility-administered medications for this visit. Objective BP 122/60 (BP Site: Right Arm, BP Position: Sitting, BP Cuff Size: Large Adult) Pulse 60 Temp 36.2 C (97.2 F) (Temporal) Resp 16 Wt 68.9 kg (152 lb) BMI 23.81 kg/m Physical Exam Constitutional: General: He is not in acute distress. Cardiovascular: Rate and Rhythm: Normal rate and regular rhythm. Pulses: Radial pulses are 1+ on the right side and 1+ on the left side. Femoral pulses are 1+ on the right side with bruit and 1+ on the left side. Popliteal pulses are 0 on the right side and 0 on the left side. Dorsalis pedis pulses are 1+ on the right side and 0 on the left side. Posterior tibial pulses are 0 on the right side and 0 on the left side. Heart sounds: No murmur heard. No gallop. Pulmonary: Effort: No respiratory distress. Breath sounds: Rhonchi present. No wheezing or rales. Abdominal: Palpations: Abdomen is soft. Tenderness: There is no abdominal tenderness. Musculoskeletal: General: No tenderness. Right lower leg: No edema. Left lower leg: No edema. Skin: Comments: Nummular psoriatic patches x 3 in the right leg and dorsal right foot. Neurological: General: No focal deficit present. Mental Status: He is alert and oriented to person, place, and time. Sensory: No sensory deficit. Motor: No weakness. Gait: Gait normal. Component Latest Ref Rng & Units 10/20/2022 WBC 3.70 - 11.00 k/uL 5.54 RBC 4.20 - 6.00 m/uL 4.59 Hemoglobin 13.0 - 17.0 g/dL 14.6 Hematocrit 39.0 - 51.0 % 42.7 MCV 80.0 - 100.0 fL 93.0 MCH 26.0 - 34.0 pg 31.8 MCHC 30.5 - 36.0 g/dL 34.2 RDW-CV 11.5 - 15.0 % 13.9 Platelet Count 150 - 400 k/uL 185 MPV 9.0 - 12.7 fL 11.1 Neut% % 55.9 Abs Neut (ANC) 1.45 - 7.50 k/uL 3.09 Lymph% % 31.0 Abs Lymph 1.00 - 4.00 k/uL 1.72 [place]% % 9.9 Abs [place] <0.87 k/uL 0.55 Eosin% % 2.3 Abs Eosin <0.46 k/uL 0.13 Baso% % 0.7 Abs Baso <0.11 k/uL 0.04 Immature Gran % % 0.2 IMMATURE GRANS (ABS) <0.10 k/uL <0.03 NRBC /100 WBC 0.0 Absolute nRBC <0.01 k/uL <0.01 DTYPE Auto WSR 0 - 15 mm/hr 10 CRP <0.9 mg/dL <0.3 CK 51 - 298 U/L 45 (L) Assessment and Plan 1. Idiopathic peripheral neuropathy - ICD9: 356.9, ICD10: G60.9 (primary diagnosis) - Continue gabapentin. - DULOXETINE 20 MG CAPSULE,DELAYED RELEASE Shared Medical Decision Making was done: Medication: duloxetine. Benefits: Medication may help painin in the manager terminal. Risks: Possible side effects were discussed. Possible interactions: n/a. 2. 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 3. Psoriasis - ICD9: 696.1, ICD10: L40.9 Stable. - MOMETASONE 0.1 % TOPICAL CREAM Talon Bolaños MD documented in this encounterBarnesville Hospital01-18-2023 Miscellaneous Notes* Telephone Encounter - Liv Molina LPN - 10/31/2022 5:00 PM EST Spoke to Patient, scheduled appt w/PCP 11/01/2022 to evaluate. Liv Molina LPN * Telephone Encounter - Liv Molina LPN - 10/31/2022 8:28 AM EST Left message for Patient to call & schedule appt w/Dr. Bolaños. Liv Molina LPN * Telephone Encounter - Precious Almeida APRN.CNP - 10/31/2022 8:03 AM EST Please schedule follow-up WITH DR BOLAÑOS for this week or next Precious Almeida APRN.CNP * Telephone Encounter - Susie Tinoco LPN - 10/29/2022 10:12 AM EST Spoke with patient and notified him of lab results. Patient states that he is still in a lot of pain from his knees down into his feet. * Telephone Encounter - Liv Molina LPN - 10/23/2022 3:33 PM EST Left below results on identified vm. Asked Patient to call in with update on how he is feeling. Liv Molina LPN * Telephone Encounter - Paola Nieto RN - 10/22/2022 8:09 AM EST Detailed message left on pt's identified VM of message below. Pt instructed to call in to PCP office to give condition update. Paola Nieto RN * Telephone Encounter - Precious Almeida APRN.CNP - 10/22/2022 7:37 AM EST Please let the patient know his labs were all normal. How is he feeling? Precious Almeida APRN.CNP documented in this encounterBarnesville Hospital01-06-2023 Miscellaneous Notes* Telephone Encounter - Shavonne Perera LPN - 10/19/2022 4:22 PM EST Patient notified of results and provider's instructions. Patient verbalizes understanding. Pt is home now. He will do labs tomorrow am. Fyi to pcp about labs 10/20/22 Shavonne Perera LPN * Telephone Encounter - Precious Almeida APRN.CNP - 10/19/2022 4:15 PM EST Please let the patient know I discussed everything with Dr. Bolaños. He is recommending more labsto evaluate further. In the mean time I am sending a prescription for hydrocodone to take as neededfor severe pain. Go to ER for any worsening symptoms. Precious Almeida APRN.CNP PDMP website checked and validated. All prescriptions have been APPROPRIATELY filled. No suspiciousactivity was identified. 10/19/2022 by Precious Almeida APRN.CNP * Telephone Encounter - Shannan Carter RN - 10/18/2022 3:26 PM EST Pt called in for the final results for the bilateral lower extremity US. Let Pt know that they werenegative for DVTs. Pt states his legs are still hurting him. He reports a constant 10/10 throbbing pain in both of his calves. He reports they are warm and hurt a little more when walking than when resting. Pt denies having a fever, swelling to his legs, or change in color to legs. Pt reports he only takes a couple Tylenol during the day for the pain and it doesn't help. He states at bedtime he takes 2 Tylenol, 2 Advil, and 2 Gabapentin. Pt reports he can sleep, but when he wakes up in the morning he can feel the pain. He states he can't take the prescribed Gabapentin during the day because it makes him feel dizzy. Please call and advise. documented in this encounterBarnesville Hospital01-03-2023 History of Present illness Narrative* Precious Almeida APRN.CNP - 10/16/2022 10:43 AM EST Images from the original note were not included. CC: Patient presents with: express care - follow up rash on leg HPI Tye Vazquez is a 82 year old male who presents today for above. Patient was seen in urgent care on 10/01 with painful rash on the right calf. On exam patient hada few shamika of localized erythema on the calf. HSV and varicella culture obtained that was negative.He was prescribed Valtrex x 7 days and cortisone cream. Today patient reports rash has almost completely resolved but still has a few red spots that are no longer painful. However for the past week he has been experiencing bilateral calf pain/cramping that is constant. Aggravated by walking, pain is much worse by the end of the day. Nothing alleviates the pain except Advil, not even rest. Denies swelling. Has has chronic numbness/tingling neuropathy pain in bilateral feet but this does not feelsimilar. He has a history of PAD, last PVR one year ago showed no worsening. Of note, he was seen again in urgent care on 10/05 with flu like symptoms. Prescribed Tamilflu. Positive for influenza A but COVID was negative. Patient reports symptoms have resolved. Still has slight cough but improving. Denies fever, chills, SOB. REVIEW OF SYSTEMS See HPI 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 Clostridium difficile colitis 05/14/2017 DDD (degenerative disc disease), lumbar 11/07/2016 Diarrhea Esophageal reflux 08/29/2006 Essential hypertension, benign Inguinal hernia without mention of obstruction or gangrene, unilateral or unspecified, (not specified as recurrent) 10/11/2008 Mixed hyperlipidemia 09/02/2006 Nonspecific (abnormal) findings on radiological and other examination of abdominal area, including retroperitoneum PAD (peripheral artery disease) (HCC) Prostate cancer (HCC) 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. Traumatic subdural hematoma without loss of consciousness (HCC) 09/14/2020 Umbilical hernia without mention of obstruction or gangrene 10/11/2008 PAST SURGICAL HISTORY Procedure Laterality Date ARTHROPLASTY GLENOHUMRL JT HEMIARTHROPLASTY Right 1993 Arthroplasty, shoulder right x 2. 1991, 1993. COLONOSCOPY & POLYPECTOMY 05/15/2010 tubular adenomas removed- [place] COLONOSCOPY DIAGNOSTIC 06/05/2022 sigmoid tubular adenoma COLONOSCOPY FLX DX W/COLLJ SPEC WHEN PFRMD 04/26/2014 Colonoscopy COLONOSCOPY FLX DX W/COLLJ SPEC WHEN PFRMD 05/07/2016 Colonoscopy EGD 05/04/2022 LAMINECTOMY W/O FFD > 2 VERT SEG LUMBAR 06/11/2018 [facility] [place] PAST SURGICAL HISTORY OF 2001 bilat cataracts, retina PAST SURGICAL HISTORY OF Left 09/2019 Groin surgery PAST SURGICAL HISTORY OF 09/14/2020 CRANIOTOMY FOR EVACUATION OF SUPRATENTORIAL SUBDURAL HEMATOMA RPR 1ST INGUN HRNA AGE 5 YRS/> REDUCIBLE 11/26/2008 left RPR 1ST INGUN HRNA AGE 5 YRS/> REDUCIBLE 01/20/2018 Hernia repair, inguinal right, indirect w/medium mesh plug [facility] RPR UMBILICAL HRNA 5 YRS/> REDUCIBLE 11/26/2008 SEED IMPLANT 05/2010 for prostate cancer SIGMOIDOSCOPY FLX DX W/COLLJ SPEC BR/WA IF PFRMD 12/05/2010 ALLERGIES Patient has no known allergies. MEDICATIONS doxazosin (CARDURA) 8 mg tablet Take 1 tablet by mouth daily at bedtime. pregabalin (LYRICA) 50 mg capsule Take 1 capsule by mouth twice daily for 90 days. gabapentin (NEURONTIN) 300 mg capsule Take 2 capsules by mouth daily at bedtime for 180 days. omeprazole (PRILOSEC) 20 mg capsule Take 1 capsule by mouth once daily. lisinopril (ZESTRIL, PRINIVIL) 40 mg tablet Take 1 tablet by mouth once daily. metoprolol tartrate, short acting, (LOPRESSOR) 50 mg tablet Take 0.5 tablets by mouth twice daily. (Patient taking differently: Take 50 mg by mouth.) lactobacillus rhamnosus (CULTURELLE) 10 billion cell capsule Take 1 capsule by mouth once daily for10 days. amLODIPine (NORVASC) 10 mg tablet Take 1 tablet by mouth once daily. hydroCHLOROthiazide 12.5 mg capsule Take 1 capsule by mouth once daily. acetaminophen (TYLENOL) 325 mg tablet Take 2 tablets by mouth every 4 hours as needed. FAMILY HISTORY Problem Relation Age of Onset Diabetes Brother skin cancer Prostate Cancer Brother Stroke Mother Blood Disease Father Coronary Artery Disease Brother other (Other) Brother paraplegia No Ocular Disease Other Social History Tobacco Use Smoking status: Every Day Years: 30.00 Types: Cigarettes Smokeless tobacco: Never Tobacco comments: 5-6 per day Vaping Use Vaping Use: Never used Substance Use Topics Alcohol use: Yes Alcohol/week: 7.0 standard drinks Types: 7 Glasses of Wine (5oz) per week Drug use: No PHYSICAL EXAM BP 127/70 Pulse 83 Temp 36.7 C (98.1 F) (Temporal) Resp 20 Wt 69.4 kg (153 lb) BMI 23.96 kg/m General Appearance: well appearing, in no acute distress, alert Lungs: Lungs clear to auscultation. No wheezing, rhonchi, rales. Heart: RRR without murmur, gallop, or rubs. No ectopy Lower Extremities: Tenderness with palpation of bilateral calves. No deformities, edema, skin discoloration, clubbing or cyanosis. Good capillary refill. Pulses: 1+ Modified Wells Rule for DVT (1pt each) - active cancer (tx or palliation in last 6mo)= 0 - paralysis, paresis or recent leg casting= 0 - bedridden >3D/major surgery w/in 4 wks= 0 - localized tenderness along deep venous system= 1 - entire ext swollen= 0 - unilateral calf swelling >3cm below Tibial tuberosity= 0 - unilateral pitting edema= 0 - prominent non-varicose collateral superficial veins= 0 Score -2 if alt dx as likely as DVT= 0 Score Total: 1 Pretest probabilty: High >= 3, Intermediate 1-2, Low 0 ASSESSMENT/PLAN: 1. Bilateral calf pain - ICD9: 729.5, ICD10: M79.661, M79.662 (primary diagnosis) Etiology unclear. Differentials include PAD, neuropathy, DVT, electrolyte imbalance Stat work-up with: - US LEG VEIN DVT [facility] - BASIC METABOLIC PNL - MAGNESIUM BLD Follow-up pending results 2. Skin lesion of right lower extremity - ICD9: 709.9, ICD10: L98.9 Improved but persistent. Etiology remains unclear. Continue to monitor and follow-up in 1-2 weeks if lesions persist 3. Essential hypertension - ICD9: 401.9, ICD10: I10 - good control - Continue current medication(s) - Recommended regular aerobic exercise. - Recommend home blood pressure monitoring, to bring results in on next visit - Goal of BP <130/80 4. Mixed hyperlipidemia - ICD9: 272.2, ICD10: E78.2 - to be determined upon return of lab results Check lipids Prescription instructions reviewed with patient as applicable. Potential red flag symptoms discussed with the patient. Reviewed appropriate action plan to take if red flag symptoms occur. Patient agreeable to treatment plan. Precious Almeida APRN.CNP documented in [place] encounterKaren [place] [id number] Instructions* Patient Instructions* Carlos AIMEE Floyd.OLIVE PITTER - 10/05/2022 1:39 PM EST How to Manage Common Symptoms Associated with COVID for Adults Fever- Fever is a temperature over 100.4 F and can occur when the body is fighting an infection. Tohelp treat a fever: Drink plenty of fluids and stay well hydrated. Eat small amounts of easy to digest food. Rest. Your body needs rest to recover, but getting up and moving around the house frequently is a good idea. You should try to continue doing your normal daily activities (bathing, toileting, grooming, cooking), though you will probably feel tired, and need to rest often. Avoid any heavy activity or exercise, as this will increase your body temperature. Dress in light clothing and stay covered in a light sheet. Keep the room temperature cool. Take a slightly warm (not cold or cool) bath, or apply damp washcloths to the forehead and wrists. Cough- Cough is a common symptom associated with COVID and can be bothersome. To help treat a cough: Stay well hydrated. Try warm water or tea with lemon and/or honey to help soothe the cough. Use a humidifier to add moisture to the air. Try a product with menthol, like a cough drop or a rub for your chest such as Vicks, which can helpreduce cough. Try cough drops. Avoid smoking and other strong odors or perfumes. Try breathing exercises to keep your lungs open and clear. Take a big deep breath through your noseand hold for 5 seconds before slowly releasing. Repeat frequently, while you are awake. Congestion- Runny nose or nasal congestion can occur with COVID. Treatment can help relieve symptoms: Try OTC nasal saline spray, or nasal saline rinse to relieve mucus congestion. Nasal strips can help keep nasal passages open, to increase airflow. Elevating your head with an extra pillow in bed can help reduce congestion. Using a humidifier can increase moisture in the air, and make breathing easier. Sore Throat- Another common symptom with COVID, can be managed at home by: Stay well hydrated. Gargle with salt water - mix teaspoon salt with 1 cup of warm water and gargle. This helps to loosen mucus in the back of the throat and may reduce discomfort. Try ice chips, popsicles or lozenges to soothe the throat. Nausea/Vomiting/Diarrhea- These are common symptoms, and staying hydrated is most important. If you are nauseous or vomiting, start with small sips of water every 10-15 minutes and increase astolerated. You can try sucking an ice cube too. If tolerating, you can try pedialyte or Gatorade, or flat sprite or haley-fred. Start slowly and increase as you are able to. Instead of meals, try smaller, more frequent snacks. Try eating bland foods like crackers, toast, rice, and applesauce. Avoid spicy, greasy or fried foods and dairy containing foods. Even if you aren't feeling hungry due to lack of smell or taste, it is important to try to take in some food when you are able. After drinking and eating, rest in an upright position for up to two hours as needed to help decrease nauseous feelings. Try closing your eyes, avoid moving and watching TV. Avoid strong odors that can make you feel more nauseated. When to seek emergency medical attention Look for emergency warning signs for COVID-19. If having any of these symptoms, seek emergency medical care immediately: Trouble breathing Persistent pain or pressure in the chest New confusion Inability to wake or stay awake Bluish lips or face *This list is not all possible symptoms. Please call your medical provider for any other symptoms that are severe or concerning to you. documented in this encounterBarnesville Hospital12-23-2022 History of Present illness Narrative* Carlos Floyd APRN.CNP - 10/05/2022 1:17 PM EST Subjective HPI Nontoxic-appearing male presents urgent care [facility] symptoms. Duration of symptoms 24hours. Associated symptoms cough chest congestion fatigue body aches chills headache nasal congestion. States he was around his granddaughter who tested positive for influenza this week. States symptoms started abruptly yesterday. Has not use any OTC medication use today. Denies any significant pain currently. Most prominent symptom is fatigue. Denies any fever productive cough chest pain shortness of breath pleuritic pain hemoptysis nausea vomiting abdominal pain or change in bowel or bladder habits. Past medical history prescription medication use allergies reviewed. BP 140/76 Pulse 84 Temp 36.7 C (98.1 F) (Tympanic) Resp 20 Wt 70.5 kg (155 lb 6.4 oz) SpO2 90% BMI 24.34 kg/m Spo2 94 .Patient presents with: Chest Congestion: Pt reported S OB, cough +flu exposure. 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. Traumatic subdural hematoma without loss of consciousness (HCC) 09/14/2020 Umbilical hernia without mention of obstruction or gangrene 10/11/2008 PAST SURGICAL HISTORY Procedure Laterality Date ARTHROPLASTY GLENOHUMRL JT HEMIARTHROPLASTY Right 1993 Arthroplasty, shoulder right x 2. 1991, 1993. COLONOSCOPY & POLYPECTOMY 05/15/2010 tubular adenomas removed[place] COLONOSCOPY DIAGNOSTIC 06/05/2022 sigmoid tubular adenoma COLONOSCOPY FLX DX W/COLLJ SPEC WHEN PFRMD 04/26/2014 Colonoscopy COLONOSCOPY FLX DX W/COLLJ SPEC WHEN PFRMD 05/07/2016 Colonoscopy EGD 05/04/2022 LAMINECTOMY W/O FFD > 2 VERT SEG LUMBAR 06/11/2018 [facility] [place] PAST SURGICAL HISTORY OF 2001 bilat cataracts, retina PAST SURGICAL HISTORY OF Left 09/2019 Groin surgery PAST SURGICAL HISTORY OF 09/14/2020 CRANIOTOMY FOR EVACUATION OF SUPRATENTORIAL SUBDURAL HEMATOMA RPR 1ST INGUN HRNA AGE 5 YRS/> REDUCIBLE 11/26/2008 left RPR 1ST INGUN HRNA AGE 5 YRS/> REDUCIBLE 01/20/2018 Hernia repair, inguinal right, indirect w/medium mesh plug [facility] RPR UMBILICAL HRNA 5 YRS/> REDUCIBLE 11/26/2008 SEED IMPLANT 05/2010 for prostate cancer SIGMOIDOSCOPY FLX DX W/COLLJ SPEC BR/WA IF PFRMD 12/05/2010 ALLERGIES Patient has no known allergies. MEDICATIONS valACYclovir (VALTREX) 1 gram Take 1 tablet by mouth three times daily for 7 days. doxazosin (CARDURA) 8 mg tablet Take 1 tablet by mouth daily at bedtime. gabapentin (NEURONTIN) 300 mg capsule Take 2 capsules by mouth daily at bedtime for 180 days. omeprazole (PRILOSEC) 20 mg capsule Take 1 capsule by mouth once daily. lisinopril (ZESTRIL, PRINIVIL) 40 mg tablet Take 1 tablet by mouth once daily. amLODIPine (NORVASC) 10 mg tablet Take 1 tablet by mouth once daily. acetaminophen (TYLENOL) 325 mg tablet Take 2 tablets by mouth every 4 hours as needed. triamcinolone (KENALOG) 0.025 % cream Apply to affected area twice daily for 7 days. pregabalin (LYRICA) 50 mg capsule Take 1 capsule by mouth twice daily for 90 days. metoprolol tartrate, short acting, (LOPRESSOR) 50 mg tablet Take 0.5 tablets by mouth twice daily. (Patient taking differently: Take 50 mg by mouth.) lactobacillus rhamnosus (CULTURELLE) 10 billion cell capsule Take 1 capsule by mouth once daily for10 days. hydroCHLOROthiazide 12.5 mg capsule Take 1 capsule by mouth once daily. FAMILY HISTORY Problem Relation Age of Onset Diabetes Brother skin cancer Prostate Cancer Brother Stroke Mother Blood Disease Father Coronary Artery Disease Brother other (Other) Brother paraplegia No Ocular Disease Other Social History Tobacco Use Smoking status: Every Day Years: 30.00 Types: Cigarettes Smokeless tobacco: Never Tobacco comments: 5-6 per day Vaping Use Vaping Use: Never used Substance Use Topics Alcohol use: Yes Alcohol/week: 7.0 standard drinks Types: 7 Glasses of Wine (5oz) per week Drug use: No Review of Systems Constitutional: Positive for chills and malaise/fatigue. Negative for fever. HENT: Positive for congestion and sore throat. Negative for ear discharge, ear pain and sinus pain. Eyes: Negative for blurred vision, pain, discharge and redness. Respiratory: Positive for cough. Negative for hemoptysis, sputum production, shortness of breath, wheezing and stridor. Cardiovascular: Negative for chest pain. Gastrointestinal: Negative for abdominal pain, diarrhea, nausea and vomiting. Musculoskeletal: Positive for myalgias. Skin: Negative for itching and rash. Neurological: Positive for headaches. Negative for dizziness. Objective Physical Exam Constitutional: General: He is not in acute distress. Appearance: He is not diaphoretic. HENT: Head: Normocephalic. Nose: Congestion present. Mouth/Throat: Mouth: Mucous membranes are moist. Pharynx: Oropharynx is clear. No oropharyngeal exudate or posterior oropharyngeal erythema. Eyes: Conjunctiva/sclera: Conjunctivae normal. Pupils: Pupils are equal, round, and reactive to light. Cardiovascular: Rate and Rhythm: Normal rate and regular rhythm. Heart sounds: Normal heart sounds. Pulmonary: Effort: Pulmonary effort is normal. No tachypnea, accessory muscle usage or respiratory distress. Breath sounds: Normal breath sounds. No stridor. No wheezing, rhonchi or rales. Abdominal: Palpations: Abdomen is soft. Tenderness: There is no abdominal tenderness. There is no guarding. Musculoskeletal: Cervical back: Normal range of motion and neck supple. No rigidity or tenderness. Lymphadenopathy: Cervical: No cervical adenopathy. Skin: General: Skin is warm and dry. Neurological: Mental Status: He is alert and oriented to person, place, and time. ASSESSMENT/PLAN: 1. Viral illness - ICD9: 079.99, ICD10: B34.9 - Discussed viral etiology and rationale for treatment. - Symptomatic treatment with prn analgesia - Supportive care with fluids and rest - COVID WITH FLUA+B, ROUTINE Tamiflu started at today's visit. Discontinue if influenza test is negative. Suspicious of influenza A due to positive exposure. Symptoms were abrupt. Within 48 hours of symptom onset. Will start Tamiflu at today's visit. If negative discontinue. Creatinine clearance 60. GFR 80. Patient states is staying hydrated. Patient will follow up with primary care provider as needed.Patient was instructed to immediately proceed to emergency room for any new, worsening, or symptomslasting longer than anticipated. The patient's clinical presentation is otherwise unremarkable at this time. Based on exam and clinical finding, the patient is stable for discharge. Plan of care was discussed with patient. Patient verbalizes understanding and agrees to plan of care. This note was ge nerated using [employer] software. It may contain errors in wording, punctuation, or spelling. Carlos Floyd APRN.CNP documented in this encounterBarnesville Hospital12-21-2022 Miscellaneous Notes* Telephone Encounter - Erin Lo MA - 10/03/2022 11:14 AM EST Left message on secure voicemail of results. Erin Lo MA * Telephone Encounter - Susanna Mancini APRN.CNP - 10/03/2022 10:51 AM EST This message is to inform you that the patient has not yet read the following message. (Notification date: October 03, 2022) Results From Susanna Mancini APRN.CNP To Tye Vazquez Sent and Delivered 10/02/2022 10:06 AM Tye, Your culture was negative for herpes simplex and for varicella. Continue current treatment plan discussed at time of exam. Follow up with primary care doctor. [facility] MyChart User Last Read On Tye Vazquez Not Read documented in this encounterBarnesville Hospital12-19-2022 History of Present illness Narrative* Odette Escobar APRN.CNP - 10/01/2022 5:06 PM EST Images from the original note were not included. Subjective Patient came in with complaints of painful burning rash on the back of his right calf. Patient denies any swelling. Patient denies any injury to the area patient denies any history of rash in that area patient denies anything new such as creams detergents lotions soaps. Patient denies any other symptoms. Upon check in patient's pulse ox was hard to get. Did recheck pulse ox it was at 96. Patient is not in any respiratory distress patient has no shortness of breath. The history is provided by the patient. No pocket setter was used. Rash Review of Systems Constitutional: Negative. Skin: Positive for rash. Objective Physical Exam Constitutional: Appearance: Normal appearance. Pulmonary: Effort: Pulmonary effort is normal. Skin: Comments: Patient has erythema located in the areas above. No blisters noted. Rash is painful to touch. No swelling or deformities noted. Neurological: Mental Status: He is alert. 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. Traumatic subdural hematoma without loss of consciousness (HCC) 09/14/2020 Umbilical hernia without mention of obstruction or gangrene 10/11/2008 PAST SURGICAL HISTORY Procedure Laterality Date ARTHROPLASTY GLENOHUMRL JT HEMIARTHROPLASTY Right 1994 Arthroplasty, shoulder right x 2. 1991, 1993. COLONOSCOPY & POLYPECTOMY 05/15/2010 tubular adenomas removed- [place] COLONOSCOPY DIAGNOSTIC 06/05/2022 sigmoid tubular adenoma COLONOSCOPY FLX DX W/COLLJ SPEC WHEN PFRMD 04/26/2014 Colonoscopy COLONOSCOPY FLX DX W/COLLJ SPEC WHEN PFRMD 05/07/2016 Colonoscopy EGD 05/04/2022 LAMINECTOMY W/O FFD > 2 VERT SEG LUMBAR 06/11/2018 [facility] PAST SURGICAL HISTORY OF 2001 bilat cataracts, retina PAST SURGICAL HISTORY OF Left 09/2019 Groin surgery PAST SURGICAL HISTORY OF 09/14/2020 CRANIOTOMY FOR EVACUATION OF SUPRATENTORIAL SUBDURAL HEMATOMA RPR 1ST INGUN HRNA AGE 5 YRS/> REDUCIBLE 11/26/2008 left RPR 1ST INGUN HRNA AGE 5 YRS/> REDUCIBLE 01/20/2018 Hernia repair, inguinal right, indirect w/medium mesh plug [facility] RPR UMBILICAL HRNA 5 YRS/> REDUCIBLE 11/26/2008 SEED IMPLANT 05/2010 for prostate cancer SIGMOIDOSCOPY FLX DX W/COLLJ SPEC BR/WA IF PFRMD 12/05/2010 ALLERGIES Patient has no known allergies. MEDICATIONS valACYclovir (VALTREX) 1 gram Take 1 tablet by mouth three times daily for 7 days. triamcinolone (KENALOG) 0.025 % cream Apply to affected area twice daily for 7 days. doxazosin (CARDURA) 8 mg tablet Take 1 tablet by mouth daily at bedtime. pregabalin (LYRICA) 50 mg capsule Take 1 capsule by mouth twice daily for 90 days. gabapentin (NEURONTIN) 300 mg capsule Take 2 capsules by mouth daily at bedtime for 180 days. omeprazole (PRILOSEC) 20 mg capsule Take 1 capsule by mouth once daily. lisinopril (ZESTRIL, PRINIVIL) 40 mg tablet Take 1 tablet by mouth once daily. metoprolol tartrate, short acting, (LOPRESSOR) 50 mg tablet Take 0.5 tablets by mouth twice daily. (Patient taking differently: Take 50 mg by mouth.) lactobacillus rhamnosus (CULTURELLE) 10 billion cell capsule Take 1 capsule by mouth once daily for10 days. amLODIPine (NORVASC) 10 mg tablet Take 1 tablet by mouth once daily. hydroCHLOROthiazide 12.5 mg capsule Take 1 capsule by mouth once daily. acetaminophen (TYLENOL) 325 mg tablet Take 2 tablets by mouth every 4 hours as needed. FAMILY HISTORY Problem Relation Age of Onset Diabetes Brother skin cancer Prostate Cancer Brother Stroke Mother Blood Disease Father Coronary Artery Disease Brother other (Other) Brother paraplegia No Ocular Disease Other Social History Tobacco Use Smoking status: Every Day Years: 30.00 Types: Cigarettes Smokeless tobacco: Never Tobacco comments: 5-6 per day Vaping Use Vaping Use: Never used Substance Use Topics Alcohol use: Yes Alcohol/week: 7.0 standard drinks Types: 7 Glasses of Wine (5oz) per week Drug use: No ASSESSMENT/PLAN: 1. Rash - ICD9: 782.1, ICD10: R21 - HSV 1,2/VZV AMP MOLECULAR DETECT Valtrex 3 times a day for a week and try some alone cream prescribed. Patient was educated about proper use of medication and supportive therapies patient denies any kidney issues. Patient will follow-up with dermatology or primary care if symptoms seem to be getting worse not better. Patient was okay with this care plan. Odettemagda Escobar APRN.CNP documented in this encounterBarnesville Hospital10-10-2022 Miscellaneous Notes* Telephone Encounter - Mahnaz Millan RN - 07/23/2022 12:54 PM EDT Patient calls back and states that he has quite a few of Lyrica left. Patient states that he will continue to take what he has been taking. Mahnaz Millan RN * Telephone Encounter - Abdiel Layne Ma - 07/23/2022 12:24 PM EDT Left message to call office. 07/23/2022 12:24 PM Abdiel Layne Ma * Telephone Encounter - Precious Almeida APRN.CNP - 07/23/2022 11:49 AM EDT We could increase the dose however this could make side effects worsen. Would he rather just go back on the Gabapentin? Precious Almeida APRN.CNP * Telephone Encounter - Paola Nieto RN - 07/18/2022 10:28 AM EDT Patient returned call. He states the Lyrica has helped some but not as much as he would like it to . Reports right calf pain continues-rates it 6 out of 10 pain. Also states the Lyrica makes him woozy or dizzy when he takes it. He states he drives twice a week and does not take the pill the day he has to drive. Please advise patient. Thank you. * Telephone Encounter - Abdiel Layne Ma - 07/18/2022 9:58 AM EDT Left message to call office. 07/18/2022 9:58 AM Abdiel Layne Ma * Telephone Encounter - Abdiel Layne Ma - 07/18/2022 9:57 AM EDT ----- Message from Precious Almeida APRN.CNP sent at 07/04/2022 6:08 PM EDT ----- Please call patient with update on effectiveness of Lyrica documented in this encounterBarnesville Hospital09-21-2022 Instructions* Patient Instructions* Precious Almeida APRN.CNP - 07/04/2022 5:24 PM EDT For neuropathy: changing from Gabapentin to Lyrica (pregabalin). Take Lyrica at bedtime initially for one week, then increase to twice a day if it is ineffective. I will call you in two weeks to see how you are doing on the new medication. Let me know sooner if you are having any issues with the medication or if it is too expensive. documented in this encounterBarnesville Hospital09-21-2022 History of Present illness Narrative* Precious Almeida APRN.CNP - 07/04/2022 5:08 PM EDT CC: Patient presents with: Follow Up HPI Tye Vazquez is a 82 year old male who presents today for BP follow-up. Patient was last seen forthis approximately 2 months ago. Medication changes: No Taking all medications as prescribed: Yes Side effects: No Home BP's: Yes 120's/70's Denies: headache, chest pain, palpitations, dyspnea, and peripheral edema. Last 4 Encounter BP Readings: Date: BP: 07/04/2022 126/74 05/17/2022 124/72 03/23/2022 148/74 03/18/2022 145/44 Last 3 Encounter Wt Readings: Date: Wt: 07/04/2022 71.7 kg (158 lb) 05/17/2022 70.3 kg (155 lb) 03/23/2022 71.2 kg (157 lb) Patient also reports peripheral neuropathy is not well controlled with Gabapentin. He is taking 600mg every night at bedtime. Symptoms are worse during the day, he has no issues with pain at night or difficulty sleeping. Pain is in BLE, described as burning along with numbness/tingling. He has tried taking a dose of Gabapentin in the morning as well but does not tolerate it during the day. Makeshim very sleepy and has difficulty walking. He has never been on anything else for neuropathy. REVIEW OF SYSTEMS See HPI 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 Clostridium difficile colitis 05/14/2017 DDD (degenerative disc disease), lumbar 11/07/2016 Diarrhea Esophageal reflux 08/29/2006 Essential hypertension, benign Inguinal hernia without mention of obstruction or gangrene, unilateral or unspecified, (not specified as recurrent) 10/11/2008 Mixed hyperlipidemia 09/02/2006 Nonspecific (abnormal) findings on radiological and other examination of abdominal area, including retroperitoneum PAD (peripheral artery disease) (HCC) Prostate cancer (HCC) 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. Traumatic subdural hematoma without loss of consciousness (HCC) 09/14/2020 Umbilical hernia without mention of obstruction or gangrene 10/11/2008 PAST SURGICAL HISTORY Procedure Laterality Date ARTHROPLASTY GLENOHUMRL JT HEMIARTHROPLASTY Right 1993 Arthroplasty, shoulder right x 2. 1991, 1993. COLONOSCOPY & POLYPECTOMY 05/15/2010 tubular adenomas removed[place] COLONOSCOPY DIAGNOSTIC 06/05/2022 sigmoid tubular adenoma COLONOSCOPY FLX DX W/COLLJ SPEC WHEN PFRMD 04/26/2014 Colonoscopy COLONOSCOPY FLX DX W/COLLJ SPEC WHEN PFRMD 05/07/2016 Colonoscopy EGD 05/04/2022 LAMINECTOMY W/O FFD > 2 VERT SEG LUMBAR 06/11/2018 [facility] [place] PAST SURGICAL HISTORY OF 2001 bilat cataracts, retina PAST SURGICAL HISTORY OF Left 09/2019 Groin surgery PAST SURGICAL HISTORY OF 09/14/2020 CRANIOTOMY FOR EVACUATION OF SUPRATENTORIAL SUBDURAL HEMATOMA RPR 1ST INGUN HRNA AGE 5 YRS/> REDUCIBLE 11/26/2008 left RPR 1ST INGUN HRNA AGE 5 YRS/> REDUCIBLE 01/20/2018 Hernia repair, inguinal right, indirect w/medium mesh plug [facility] RPR UMBILICAL HRNA 5 YRS/> REDUCIBLE 11/26/2008 SEED IMPLANT 05/2010 for prostate cancer SIGMOIDOSCOPY FLX DX W/COLLJ SPEC BR/WA IF PFRMD 12/05/2010 ALLERGIES Patient has no known allergies. MEDICATIONS gabapentin (NEURONTIN) 300 mg capsule Take 2 capsules by mouth daily at bedtime for 180 days. omeprazole (PRILOSEC) 20 mg capsule Take 1 capsule by mouth once daily. lisinopril (ZESTRIL, PRINIVIL) 40 mg tablet Take 1 tablet by mouth once daily. metoprolol tartrate, short acting, (LOPRESSOR) 50 mg tablet Take 0.5 tablets by mouth twice daily. (Patient taking differently: Take 50 mg by mouth.) lactobacillus rhamnosus (CULTURELLE) 10 billion cell capsule Take 1 capsule by mouth once daily for10 days. amLODIPine (NORVASC) 10 mg tablet Take 1 tablet by mouth once daily. doxazosin (CARDURA) 8 mg tablet Take 1 tablet by mouth daily at bedtime. hydroCHLOROthiazide 12.5 mg capsule Take 1 capsule by mouth once daily. acetaminophen (TYLENOL) 325 mg tablet Take 2 tablets by mouth every 4 hours as needed. atorvastatin (LIPITOR) 10 mg tablet Take 1 tablet by mouth once daily. (Patient not taking: Reported on 07/04/2022) albuterol HFA (PROVENTIL HFA, VENTOLIN HFA) 90 mcg/actuation inhaler Inhale 2-4 Puffs as instructedevery 4 hours as needed for wheezing/shortness of breath. (Patient not taking: Reported on 07/04/2022) FAMILY HISTORY Problem Relation Age of Onset Diabetes Brother skin cancer Prostate Cancer Brother Stroke Mother Blood Disease Father Coronary Artery Disease Brother other (Other) Brother paraplegia No Ocular Disease Other Social History Tobacco Use Smoking status: Every Day Years: 30.00 Types: Cigarettes Smokeless tobacco: Never Tobacco comments: 5-6 per day Vaping Use Vaping Use: Never used Substance Use Topics Alcohol use: Yes Alcohol/week: 7.0 standard drinks Types: 7 Glasses of Wine (5oz) per week Drug use: No PHYSICAL EXAM BP 126/74 Pulse 85 Wt 71.7 kg (158 lb) SpO2 93% BMI 24.75 kg/m General Appearance: well appearing, in no acute distress, alert Lungs: Lungs clear to auscultation. No wheezing, rhonchi, rales. Heart: RRR without murmur, gallop, or rubs. No ectopy Health maintenance reviewed with patient: INFLUENZA(1) due on 06/14/2022 SHINGRIX VACCINE(2 of 3) due on 07/17/2022 DTAP,TDAP,TD(2 - Td or Tdap) due on 08/29/2022 COVID-19 VACCINE(3 - Booster for Moderna series) due on 03/23/2023 DIABETES SCREEN due on 03/20/2025 ADVANCE DIRECTIVE DISCUSSION Completed PNEUMOCOCCAL: 65+ Completed DATA REVIEWED: Most recent labs ASSESSMENT/PLAN: 1. Essential hypertension - ICD9: 401.9, ICD10: I10 (primary diagnosis) - good control - Continue current medication(s) - Recommended regular aerobic exercise. - Recommend home blood pressure monitoring, to bring results in on next visit - Goal of BP <130/80 - DOXAZOSIN 8 MG TABLET 2. Peripheral polyneuropathy - ICD9: 356.9, ICD10: G62.9 Symptoms are not controlled on Gabapentin during the day. Unable to tolerate morning or afternoon dose, can only take at bedtime. Discussed treatment options including switching to Lyrica or additional medication such as Elavil or Cymbalta. Patient prefers to try Lyrica, see patient instructions for dosing. Will call patient in two weeks with update on effectiveness. He will call sooner for any issues - PREGABALIN 50 MG CAPSULE Prescription instructions reviewed with patient as applicable. Potential red flag symptoms discussed with the patient. Reviewed appropriate action plan to take if red flag symptoms occur. Patient agreeable to treatment plan. Precious Almeida APRN.CNP documented in this encounterBarnesville Hospital09-01-2022 Miscellaneous Notes* Telephone Encounter - Liv Molina LPN - 06/14/2022 10:32 AM EDT Patient has been identified by name and date of : Yes Patient phones for refill(s): Requested Prescriptions Pending Prescriptions Disp Refills gabapentin (NEURONTIN) 300 mg capsule 180 capsule 1 Sig: Take 2 capsules by mouth daily at bedtime for 180 days. Date of last office visit in primary care: 03/23/2022 3 month follow-up: 07/03/2022 Last 2 Encounter Wt Readings: Date: Wt: 05/17/2022 70.3 kg (155 lb) 03/23/2022 71.2 kg (157 lb) Previous labs/tests for medication: Not applicable Please advise. Thank you. Liv Molina LPN * [facility] 8:57 AM EDT Patient has been identified by name and date of : Yes Requested Prescriptions Pending Prescriptions Disp Refills gabapentin (NEURONTIN) 300 mg capsule 180 capsule 1 Sig: Take 2 capsules by mouth daily at bedtime for 180 days. RX INSTRUCTIONS: Patient aware RX will be sent to pharmacy. No need to notify patient. [facility] documented in this encounterBarnesville Hospital08-04-2022 History of Present illness Narrative* Nadiya Covington PA-C - 05/17/2022 11:05 AM EDT CHIEF COMPLAINT: Patient presents with: Ulcerative Colitis: EGD 05/04/22 CT/ER/labs 03/18/22 HPI: Tye Vazquez is a 82 year old male with PMHx positive for C. Diff colitis, GERD, HTN, PAD, DDD, prostate CA who presents for Ulcerative Colitis (EGD 05/04/22 CT/ER/labs 03/18/22). Admitted to [facility] 03/2022 due to colitis found on CT scan, treated with abx, advised to see GI for outpatient c olonoscopy. No stool studies performed. Since discharge has been feeling a lot better. BMs are one per day, normal consistency, no blood. Last colon 2015 showed 9 mm hyperplastic polyp. States he is already scheduled for a colonoscopy in 06/05/2022 with a provider in [place] w/ [facility]. Prilosec 20 mg working well for GERD. Denies abd pain. CT abd 03/18/2022 IMPRESSION: Findings concerning for infectious versus inflammatory colitis of the left hemicolon. Ischemic bowel is considered less likely. Correlate with lactate. Additional findings as above Hospital course 03/2022 SUMMARY OF WHAT HAPPENED WHILE I WAS IN THE HOSPITAL: you presented to the hospital with an episodeof blood in stools. You were found to have colitis on the CT scan. You were treated with antibiotics, you did not have any bowel movement during your hospital stay. You did not drop your hemoglobin. You were being discharged in stable condition. You will need to follow up with GI as outpatient andget a colonoscopy in 6 weeks. Record Review: [facility] / Outside records reviewed. 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. Traumatic subdural hematoma without loss of consciousness (HCC) 09/14/2020 Umbilical hernia without mention of obstruction or gangrene 10/11/2008 PAST SURGICAL HISTORY Procedure Laterality Date ARTHROPLASTY GLENOHUMRL JT HEMIARTHROPLASTY Right 1993 Arthroplasty, shoulder right x 2. 1991, 1993. COLONOSCOPY & POLYPECTOMY 05/15/2010 tubular adenomas [place]- [place] COLONOSCOPY FLX DX W/COLLJ SPEC WHEN PFRMD 04/26/2014 Colonoscopy COLONOSCOPY FLX DX W/COLLJ SPEC WHEN PFRMD 05/07/2016 Colonoscopy EGD 05/04/2022 LAMINECTOMY W/O FFD > 2 VERT SEG LUMBAR 06/11/2018 [facility] PAST SURGICAL HISTORY OF 2001 bilat cataracts, retina PAST SURGICAL HISTORY OF Left 09/2019 Groin surgery PAST SURGICAL HISTORY OF 09/14/2020 CRANIOTOMY FOR EVACUATION OF SUPRATENTORIAL SUBDURAL HEMATOMA RPR 1ST INGUN HRNA AGE 5 YRS/> REDUCIBLE 11/26/2008 left RPR 1ST INGUN HRNA AGE 5 YRS/> REDUCIBLE 01/20/2018 Hernia repair, inguinal right, indirect w/medium mesh plug [facility] RPR UMBILICAL HRNA 5 YRS/> REDUCIBLE 11/26/2008 SEED IMPLANT 05/2010 for prostate cancer SIGMOIDOSCOPY FLX DX W/COLLJ SPEC BR/WA IF PFRMD 12/05/2010 Allergies: ALLERGIES No Known Allergies Medications: omeprazole (PRILOSEC) 20 mg capsule Take 1 capsule by mouth once daily. lisinopril (ZESTRIL, PRINIVIL) 40 mg tablet Take 1 tablet by mouth once daily. metoprolol tartrate, short acting, (LOPRESSOR) 50 mg tablet Take 0.5 tablets by mouth twice daily. lactobacillus rhamnosus (CULTURELLE) 10 billion cell capsule Take 1 capsule by mouth once daily for10 days. amLODIPine (NORVASC) 10 mg tablet Take 1 tablet by mouth once daily. doxazosin (CARDURA) 8 mg tablet Take 1 tablet by mouth daily at bedtime. gabapentin (NEURONTIN) 300 mg capsule Take 2 capsules by mouth daily at bedtime for 180 days. hydroCHLOROthiazide 12.5 mg capsule Take 1 capsule by mouth once daily. acetaminophen (TYLENOL) 325 mg tablet Take 2 tablets by mouth every 4 hours as needed. atorvastatin (LIPITOR) 10 mg tablet Take 1 tablet by mouth once daily. albuterol HFA (PROVENTIL HFA, VENTOLIN HFA) 90 mcg/actuation inhaler Inhale 2-4 Puffs as instructedevery 4 hours as needed for wheezing/shortness of breath. 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 Are you taking any blood thinners? No Physical Examination: BP 124/72 Pulse 52 Ht 5' 7 (1.70m) Wt 155 lb (70.3kg) BMI 24.27 kg/(m^2). Physical Exam Constitutional: General: He is not in acute distress. Appearance: Normal appearance. He is normal weight. He is not ill-appearing, toxic-appearing or diaphoretic. HENT: Head: Normocephalic and atraumatic. Nose: Nose normal. Eyes: General: No scleral icterus. Right eye: No discharge. Left eye: No discharge. Extraocular Movements: Extraocular movements intact. Conjunctiva/sclera: Conjunctivae normal. Pupils: Pupils are equal, round, and reactive to light. Cardiovascular: Rate and Rhythm: Normal rate and regular rhythm. Pulses: Normal pulses. Heart sounds: Normal heart sounds. No murmur heard. No friction rub. No gallop. Pulmonary: Effort: No respiratory distress. Breath sounds: Normal breath sounds. No stridor. No wheezing, rhonchi or rales. Chest: Chest wall: No tenderness. Abdominal: General: Abdomen is flat. Bowel sounds are normal. There is no distension. Palpations: Abdomen is soft. There is no mass. Tenderness: There is no abdominal tenderness. There is no right CVA tenderness, left CVA tenderness, guarding or rebound. Hernia: No hernia is present. Musculoskeletal: General: Normal range of motion. Cervical back: Normal range of motion and neck supple. Skin: General: Skin is warm and dry. Neurological: General: No focal deficit present. Mental Status: He is alert and oriented to person, place, and time. Psychiatric: Mood and Affect: Mood normal. Behavior: Behavior normal. Assessment/Plan (R93.3) Abnormal CT scan, colon (primary encounter diagnosis) (K21.9) Gastroesophageal reflux disease, unspecified whether esophagitis present 1. Abnormal CT scan, colon - Clinically doing very well since hospital discharge. Having regular BMs daily Suspect episode of colitis was acute infectious colitis. Pt reports eating undercooked steak prior to hospital admission. Pt states he has colon scheduled with [facility] 06/05/2022. Provided our office contact information and advised to follow up as warranted if any abnormal findings fromcolonoscopy. - Mildly bradycardic on vitals. Physical exam revealed normal HR around 60 BPM. Recommended f/u with PCP on this, he will also recheck at home today 2. Gastroesophageal reflux disease, unspecified whether esophagitis present - H/O esophageal candidiasis in 2016. Prilosec 20 mg daily working well for GERD Recommended to please call office/go to ER if fever, chills, chest pain, SOB, diarrhea, nausea, emesis, worsening abdominal pain, dehydration occurs I spent a total of 15 minutes on the date of the service which included preparing to see the patient, [id number] patient care, completing clinical documentation, obtaining and/or reviewing separately obtained history, performing a medically appropriate examination, counseling and educating the pat ient/family/caregiver, ordering medications, tests, or procedures, communicating with other HCPs (not separately reported), independently interpreting results (not separately reported), communicatingresults to the patient/family/caregiver, and care coordination (not separately reported). Nadiya Covington PA-C May 17, 2022 11:25 AM documented in this encounterBarnesville Hospital07-20-2022 Miscellaneous Notes* Telephone Encounter - Mahnaz Millan RN - 05/02/2022 9:39 AM EDT Patient calls and reschedules appointment on 07/03/2022. Mahnaz Millan RN documented in this encounterBarnesville Hospital07-13-2022 Miscellaneous Notes* Telephone Encounter - Abdiel Layne Ma - 04/25/2022 10:58 AM EDT GIUSEPPE: 03/23/2022 omeprazole Last refill: 11/28/2020 QTY: 90 Refills: 3 atorvastatin Last refill: 11/28/2020 QTY: 90 Refills: 3 * Telephone Encounter - Alpa Yee - 04/25/2022 10:33 AM EDT Patient has been identified by name and date of : Yes Pending Prescriptions Disp Refills ATORVASTATIN 10 MG TABLET 90 tablet 3 Sig: Take 1 tablet by mouth once daily. SAY: No OMEPRAZOLE 20 MG CAPSULE,DELAYED RELEASE 90 capsule 3 Sig: Take 1 capsule by mouth once daily. SAY: No RX INSTRUCTIONS: Patient aware RX will be sent to pharmacy. No need to notify patient. Alpa Yee documented in this encounterBarnesville Hospital07-12-2022 Miscellaneous Notes* Telephone Encounter - Shavonne Perera LPN - 04/24/2022 9:38 AM EDT [facility] They are wanting records from 04/03/21 to present. This was faxed to [facility] medical records release. documented in this encounterBarnesville Hospital06-10-2022 Instructions* Patient Instructions* Precious Almeida APRN.CNP - 03/23/2022 1:18 PM EDT For constipation: Start Miralax, follow directions on package. Hold for any diarrhea otherwise takedaily. documented in this encounterBarnesville Hospital06-10-2022 History of Present illness Narrative* Precious Almeida APRN.CNP - 03/23/2022 1:13 PM EDT CC: Patient presents with: Medication Follow-up HPI Tye Vazquez is a 82 year old male who presents today above. He presented to [facility] 03/18 for blood in stools and admitted until 03/[address] scan. Treated with antibiotics. CBC remained stable. Discharged home on Cipro and Flagyl. Referred toGI for colonoscopy, hasn't scheduled appointment yet. He reports no BM in one week. [place] the urge to go a couple times but unable to defecate. Denies rectal bleeding, abdominal pain, bloating, distention, nausea, vomiting, diarrhea, fever, chills, sweats, decreased appetite, weight loss. Has not taken anything for constipation. HTN-Medication changes:Yes metoprolol decreased to 12.5 mg twice a day during admission due to bradycardia. Taking all medications as prescribed: Yes Side effects: No Home BP's: No Denies: headache, chest pain, palpitations, dyspnea and peripheral edema. Last 3 Encounter BP Readings: Date: BP: 03/23/2022 148/74 03/18/2022 145/44 01/04/2022 132/76 REVIEW OF SYSTEMS See HPI 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 Clostridium difficile colitis 05/14/2017 DDD (degenerative disc disease), lumbar 11/07/2016 Diarrhea Esophageal reflux 08/29/2006 Essential hypertension, benign Inguinal hernia without mention of obstruction or gangrene, unilateral or unspecified, (not specified as recurrent) 10/11/2008 Mixed hyperlipidemia 09/02/2006 Nonspecific (abnormal) findings on radiological and other examination of abdominal area, including retroperitoneum PAD (peripheral artery disease) (HCC) Prostate cancer (HCC) 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. Traumatic subdural hematoma without loss of consciousness (HCC) 09/14/2020 Umbilical hernia without mention of obstruction or gangrene 10/11/2008 PAST SURGICAL HISTORY Procedure Laterality Date ARTHROPLASTY GLENOHUMRL JT HEMIARTHROPLASTY Right 1993 Arthroplasty, shoulder right x 2. 1991, 1993. COLONOSCOPY & POLYPECTOMY 05/15/10 tubular adenomas removed- [place] COLONOSCOPY FLX DX W/COLLJ SPEC WHEN PFRMD 04/26/2014 Colonoscopy COLONOSCOPY FLX DX W/COLLJ SPEC WHEN PFRMD 05/07/16 Colonoscopy LAMINECTOMY W/O FFD > 2 VERT SEG LUMBAR 06/11/2018 [facility] [place] PAST SURGICAL HISTORY OF 2001 bilat cataracts, retina PAST SURGICAL HISTORY OF Left 09/2019 Groin surgery PAST SURGICAL HISTORY OF 09/14/2020 CRANIOTOMY FOR EVACUATION OF SUPRATENTORIAL SUBDURAL HEMATOMA RPR 1ST INGUN HRNA AGE 5 YRS/> REDUCIBLE 11/26/2008 left RPR 1ST INGUN HRNA AGE 5 YRS/> REDUCIBLE 01/20/2018 Hernia repair, inguinal right, indirect w/medium mesh plug [facility] RPR UMBILICAL HRNA 5 YRS/> REDUCIBLE 11/26/2008 SEED IMPLANT 05/2010 for prostate cancer SIGMOIDOSCOPY FLX DX W/COLLJ SPEC BR/WA IF PFRMD 12/05/10 ALLERGIES Patient has no known allergies. MEDICATIONS metoprolol tartrate, short acting, (LOPRESSOR) 50 mg tablet Take 0.5 tablets by mouth twice daily. cefdinir (OMNICEF) 300 mg capsule Take 1 capsule by mouth twice daily for 16 doses. lactobacillus rhamnosus (CULTURELLE) 10 billion cell capsule Take 1 capsule by mouth once daily for10 days. metroNIDAZOLE (FLAGYL) 500 mg tablet Take 1 tablet by mouth every 8 hours for 24 doses. amLODIPine (NORVASC) 10 mg tablet Take 1 tablet by mouth once daily. lisinopril (ZESTRIL, PRINIVIL) 40 mg tablet Take 1 tablet by mouth once daily. doxazosin (CARDURA) 8 mg tablet Take 1 tablet by mouth daily at bedtime. gabapentin (NEURONTIN) 300 mg capsule Take 2 capsules by mouth daily at bedtime for 180 days. albuterol HFA (PROVENTIL HFA, VENTOLIN HFA) 90 mcg/actuation inhaler Inhale 2-4 Puffs as instructedevery 4 hours as needed for wheezing/shortness of breath. hydroCHLOROthiazide 12.5 mg capsule Take 1 capsule by mouth once daily. mometasone (ELOCON) 0.1 % cream Apply to affected area once daily. omeprazole (PRILOSEC) 20 mg capsule Take 1 capsule by mouth once daily. atorvastatin (LIPITOR) 10 mg tablet Take 1 tablet by mouth once daily. acetaminophen (TYLENOL) 325 mg tablet Take 2 tablets by mouth every 4 hours as needed. FAMILY HISTORY Problem Relation Age of Onset Diabetes Brother skin cancer Prostate Cancer Brother Stroke Mother Blood Disease Father Coronary Artery Disease Brother other (Other) Brother paraplegia No Ocular Disease Other Social History Tobacco Use Smoking status: Current Every Day Smoker Years: 30.00 Types: Cigarettes Smokeless tobacco: Never Used Tobacco comment: 5-6 per day Vaping Use Vaping Use: Never used Substance Use Topics Alcohol use: Yes Alcohol/week: 7.0 standard drinks Types: 7 Glasses of Wine (5oz) per week Drug use: No PHYSICAL EXAM BP 148/74 Pulse 68 Resp 18 Wt 71.2 kg (157 lb) BMI 24.59 kg/m General Appearance: well appearing, in no acute distress, alert Lungs: Lungs clear to auscultation. No wheezing, rhonchi, rales. Heart: RRR without murmur, gallop, or rubs. No ectopy Abdomen: Abdomen soft, non-tender. Bowel sounds normal. No masses, organomegaly ADVANCE DIRECTIVE DISCUSSION Never done SHINGRIX VACCINE(2 of 3) due on 07/17/2022 DTAP,TDAP,TD(2 - Td or Tdap) due on 08/29/2022 COVID-19 VACCINE(3 - Booster for Moderna series) due on 03/23/2023 DIABETES SCREEN due on 03/20/2025 INFLUENZA Completed PNEUMOCOCCAL: 65+ Completed DATA REVIEWED: [facility] admission records ASSESSMENT/PLAN: 1. Colitis - ICD9: 558.9, ICD10: K52.9 (primary diagnosis) Follow-up with GI for further evaluation/colonoscopy - CONSULT TO GASTROENTEROLOGY 2. Essential hypertension - ICD9: 401.9, ICD10: I10 - fair control - Continue current medication(s) - Recommended regular aerobic exercise. - Recommend home blood pressure monitoring, to bring results in on next visit - Recheck in 3 months, sooner should new symptoms or problems arise. - Goal of BP <130/80 - LISINOPRIL 40 MG TABLET 3. Constipation, unspecified constipation type - ICD9: 564.00, ICD10: K59.00 Discussed treatment for constipation. Start Miralax daily, hold for diarrhea Prescription instructions reviewed with patient as applicable. Potential red flag symptoms discussed with the patient. Reviewed appropriate action plan to take if red flag symptoms occur. Patient agreeable to treatment plan. Precious Almeida APRN.CNP [facility] History of Present illness Narrative* Emi Zee RN - 03/21/2022 11:31 AM EDT TRANSITIONAL CARE MANAGEMENT (TCM) COMMUNITY MONITORING PROGRAM Provider Action/FYI: Pt. Reports feeling better since being home. Pt. Has PCP appointment scheduled 03/23/22. Pt. States he wants to wait until Saturday after PCP appointment to schedule GI follow up, also discussing colonoscopy in 6-8 weeks. TCM Home Visit Referral Source of Stratification: [facility] Admission Status: Discharged Readmission Risk Score: 11 DALY Score: 9 Program referral criteria met: Does not meet referral criteria Patient does not qualify for High Risk TCM Home Visit program due to: Does not meet referral criteria SUMMARY: Pt discharged from [facility] on 03/20/2022. Admitted for: colitis. Contact made with patient: Yes Hi my name is Emi Zee RN and I am calling from the [facility] on behalf of your PCP,Talon Bolaños MD I understand you were recently in the hospital so I am calling to check in with you to ensure you are feeling well now that you're home. May I ask you a few questions related to your hospital stay and well-being? Yes Contact with patient post discharge, spoke to patient. Patient identified by name and . Do you feel your health is BETTER, WORSE, or the SAME since leaving the hospital? Better ACTION TAKEN: Patient indicated symptoms are better or same, no action required. Continue outreach. MEDICATIONS: Many patients have questions or concerns about their medications once they are home. Do you have any questions about taking your medications or which medication you should be on? No Do you need any medication refills at this time, including any of the medications you might take only when needed? No ACTION TAKEN: No action required For RNs or Pharmacy completing outreach ONLY, was a medication review completed? Yes SOCIAL: We would like to make sure you have what you need so that your basics needs are met - including your personal safety, food, housing and medications. Would you like to speak with a social work wallpaper remover steam to help give you support for any of these needs? No It can be normal to feel anxious or down during a time like this. Would you like to talk to a mental health professional about how you have been feeling? No ACTION TAKEN: No action taken DISCHARGE INTRUCTIONS: Your discharge instructions / After Visit Summary (AVS) are important in guiding you through the recovery process. Do you have any questions related to your discharge instructions? No Do you have all the necessary equipment and supplies at home? Yes ACTION TAKEN: No action required I would like to help you schedule a hospital follow-up virtual or telephone visit with your PCP. This is a great way for you to connect with your provider to ensure you have safely transitioned home.If you are agreeable, I will send your request to a commissioned sales associate who will contact and assist you with that appointment. This will give you an opportunity to ask any questions or address any concerns youmay have with your PCP. Inform the patient that if they have any questions or concerns prior to that appointment, to call their PCP's office right away. ACTION TAKEN: No action required, patient already has an appointment scheduled. Your doctor would like us to remind you of the recommendations regarding the coronavirus (Covid19) outbreak: Avoid public places as much as possible. Avoid close contact (within 6 feet) with others you don t live with, especially if they are sick. Stay home if you are sick. Wash your hands regularly for at least 20 seconds with soap and water. Wear a cloth mask in public places to help reduce community spread. Do not go to your Doctor s office unless instructed to do so. For any non- emergency symptoms, call your Doctor s office to get instructions on how to manage (we might recommend a telephone or virtualvisit). For emergency symptoms, proceed to Emergency Department as usual but inform them of cough and fever symptoms FLAKO if present (or call on the way if possible). documented in this encounter[facility] History of Past illness Narrative* Problem Noted Date Resolved Date Colitis 03/18/2022 11/01/2022 SHASHANK (acute kidney injury) 03/18/20222022 Acute postoperative pain 09/20/2020 021 History of Clostridium difficile colitis 020 11/01/2022 SDH (subdural hematoma) 09/14/2020 11/01/19 23 Last Assessment & Plan: Assessment: 09/15/20: Right crani for subdural evacuation PLAN: Pain control Bowel regimen Drain removed 09/18 Liberalize HOB Ambulate 3x daily Keppra 750 BID through 09/22 PTOT - pending Holding home ASA Leucocytosis 09/25/2019 11/19/2019 Last Assessment & Plan: Resolved was Likely reactive No fever, no signs of infection Anemia 09/24/2019 11/19/2019 Last Assessment & Plan: hgb stable Slight drop in hemoglobin after the procedure Secondary to intra op blood loss Acute respiratory failure with hypoxia 9 11/19/2019 Last Assessment & Plan: Was requiring 4 lt of oxygen On room air now Chest x ray was clear Was likely atelectasis Continue incentive spirometry 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 eMna on 09/21 with Left common, superficial and profunda femoral endarterectomy, patch angioplasty. Continue home aspirin and plavix and statin Traumatic complete tear of left rotator cuff 11/19/2019 Overview: [facility]. Inguinal hernia 01/20/2018 06/20/2018 Overview: Added automatically from request for surgery [id number] Clostridium difficile colitis 05/14/2017 Right-sided low back pain with right-sided sciat ica 10/03/2015 05/15/2016 Rotator cuff impingement syndrome of right shoul leonie 04/10/2015 11/19/2019 Medicare annual wellness visit, subsequent 04/1006/20/2018 Inguinal neuralgia 03/12/2013 11/07/2016 Diarrhea 12/05/2010 09/06/2014 Frequency of urination 10/02/2010 7 Malignant neoplasm of prostate 02/07/2010 0 11/07/2016 Overview: Dr. Littlejohn- oncologist at [facility] Rotator cuff (capsule) sprain 09/20/2009 Inguinal hernia without ment ion of obstruction or gangrene, unilateral or unspecified, (not specified as recurrent) 10/11/2008 11/07/2016 Umbilical hernia without mention of obstruction or gangrene 10/11/2008 11/07/2016 Unspecified disorder of prostate 06/21/2007 09/06/2014 Ganglion of tendon sheath 03/19/20072016 HYPERTENSION NOS 09/02/2006 03/29/2014 Last Assessment & Plan: HTN: Mr. Vazquez indicates that he is feeling well and denies any symptoms referable to elevated blood pressure. Specifically denies headache, chest pain, palpitations and dyspnea. Patient denies any side effects of his medication(s) and is compliant with their regimen. 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 Tye denies regular aerobic exercise. He watches his diet for sodium, low fat and low cholesterol some of the time. Last 3 Encounter BP Readings: Date: BP: 05/09/2011 148/86- just took BP meds this am 02/22/2011 140/98 02/15/2011 118/70 Dermatophytosis of foot 11/27/2005 06/14/20 17 documented as of this encounter (statuses as of 11/01/2022) [facility] History of Past illness Narrative* Problem Noted Date Resolved Date Colitis 03/18/2022 11/01/2022 SHASHANK (acute kidney injury) 03/18/20222022 Acute postoperative pain 09/20/2020 021 History of Clostridium difficile colitis 020 11/01/2022 SDH (subdural hematoma) 09/14/2020 11/01/19 23 Last Assessment & Plan: Assessment: 09/15/20: Right crani for subdural evacuation PLAN: Pain control Bowel regimen Drain removed 09/18 Liberalize HOB Ambulate 3x daily Keppra 750 BID through 09/22 PTOT - pending Holding home ASA Leucocytosis 09/25/2019 11/19/2019 Last Assessment & Plan: Resolved was Likely reactive No fever, no signs of infection Anemia 09/24/2019 11/19/2019 Last Assessment & Plan: hgb stable Slight drop in hemoglobin after the procedure Secondary to intra op blood loss Acute respiratory failure with hypoxia 9 11/19/2019 Last Assessment & Plan: Was requiring 4 lt of oxygen On room air now Chest x ray was clear Was likely atelectasis Continue incentive spirometry 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 Mena on 09/21 with Left common, superficial and profunda femoral endarterectomy, patch angioplasty. Continue home aspirin and plavix and statin Traumatic complete tear of left rotator cuff 11/19/2019 Overview: [facility]. Inguinal hernia 01/20/2018 06/20/2018 Overview: Added automatically from request for surgery [id number] Clostridium difficile colitis 05/14/2017 Right-sided low back pain with right-sided sciat ica 10/03/2015 05/15/2016 Rotator cuff impingement syndrome of right shoul leonie 04/10/2015 11/19/2019 Medicare annual wellness visit, subsequent 04/1006/20/2018 Inguinal neuralgia 03/12/2013 11/07/2016 Diarrhea 12/05/2010 09/06/2014 Frequency of urination 10/02/2010 7 Malignant neoplasm of prostate 02/07/2010 0 11/07/2016 Overview: Dr. Littlejohn- oncologist at [facility] Rotator cuff (capsule) sprain 09/20/2009 Inguinal hernia without ment ion of obstruction or gangrene, unilateral or unspecified, (not specified as recurrent) 10/11/2008 11/07/2016 Umbilical hernia without mention of obstruction or gangrene 10/11/2008 11/07/2016 Unspecified disorder of prostate 06/21/2007 09/06/2014 Ganglion of tendon sheath 03/19/20072016 HYPERTENSION NOS 09/02/2006 03/29/2014 Last Assessment & Plan: HTN: Mr. Vazquez indicates that he is feeling well and denies any symptoms referable to elevated blood pressure. Specifically denies headache, chest pain, palpitations and dyspnea. Patient denies any side effects of his medication(s) and is compliant with their regimen. 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 Tye denies regular aerobic exercise. He watches his diet for sodium, low fat and low cholesterol some of the time. Last 3 Encounter BP Readings: Date: BP: 05/09/2011 148/86- just took BP meds this am 02/22/2011 140/98 02/15/2011 118/70 Dermatophytosis of foot 11/27/2005 06/14/20 17 documented as of this encounter (statuses as of 12/14/2022) [facility] of Past illness Narrative* Problem Noted Date Resolved Date Colitis 03/18/2022 11/01/2022 SHASHANK (acute kidney injury) 03/18/20222022 Acute postoperative pain 09/20/2020 021 History of Clostridium difficile colitis 020 11/01/2022 SDH (subdural hematoma) 09/14/2020 11/01/19 23 Last Assessment & Plan: Assessment: 09/15/20: Right crani for subdural evacuation PLAN: Pain control Bowel regimen Drain removed 09/18 Liberalize HOB Ambulate 3x daily Keppra 750 BID through 09/22 PTOT - pending Holding home ASA Leucocytosis 09/25/2019 11/19/2019 Last Assessment & Plan: Resolved was Likely reactive No fever, no signs of infection Anemia 09/24/2019 11/19/2019 Last Assessment & Plan: hgb stable Slight drop in hemoglobin after the procedure Secondary to intra op blood loss Acute respiratory failure with hypoxia 9 11/19/2019 Last Assessment & Plan: Was requiring 4 lt of oxygen On room air now Chest x ray was clear Was likely atelectasis Continue incentive spirometry 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 Mena on 09/21 with Left common, superficial and profunda femoral endarterectomy, patch angioplasty. Continue home aspirin and plavix and statin Traumatic complete tear of left rotator cuff 11/19/2019 Overview: [facility]. Inguinal hernia 01/20/2018 06/20/2018 Overview: Added automatically from request for surgery [id number] Clostridium difficile colitis 05/14/2017 Right-sided low back pain with right-sided sciat ica 10/03/2015 05/15/2016 Rotator cuff impingement syndrome of right shoul leonie 04/10/2015 11/19/2019 Medicare annual wellness visit, subsequent 04/1006/20/2018 Inguinal neuralgia 03/12/2013 11/07/2016 Diarrhea 12/05/2010 09/06/2014 Frequency of urination 10/02/2010 7 Malignant neoplasm of prostate 02/07/2010 0 11/07/2016 Overview: Dr. Littlejohn- oncologist at [facility] Rotator cuff (capsule) sprain 09/20/2009 Inguinal hernia without ment ion of obstruction or gangrene, unilateral or unspecified, (not specified as recurrent) 10/11/2008 11/07/2016 Umbilical hernia without mention of obstruction or gangrene 10/11/2008 11/07/2016 Unspecified disorder of prostate 06/21/2007 09/06/2014 Ganglion of tendon sheath 03/19/20072016 HYPERTENSION NOS 09/02/2006 03/29/2014 Last Assessment & Plan: HTN: Mr. Vazquez indicates that he is feeling well and denies any symptoms referable to elevated blood pressure. Specifically denies headache, chest pain, palpitations and dyspnea. Patient denies any side effects of his medication(s) and is compliant with their regimen. 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 Tye denies regular aerobic exercise. He watches his diet for sodium, low fat and low cholesterol some of the time. Last 3 Encounter BP Readings: Date: BP: 05/09/2011 148/86- just took BP meds this am 02/22/2011 140/98 02/15/2011 118/70 Dermatophytosis of foot 11/27/2005 06/14/20 17 documented as of this encounter (statuses as of 01/25/2023) [facility] of Past illness Narrative* Problem Noted Date Resolved Date Colitis 03/18/2022 11/01/2022 SHASHANK (acute kidney injury) 03/18/20222022 Acute postoperative pain 09/20/2020 021 History of Clostridium difficile colitis 020 11/01/2022 SDH (subdural hematoma) 09/14/2020 11/01/19 23 Last Assessment & Plan: Assessment: 09/15/20: Right crani for subdural evacuation PLAN: Pain control Bowel regimen Drain removed 09/18 Liberalize HOB Ambulate 3x daily Keppra 750 BID through 09/22 PTOT - pending Holding home ASA Leucocytosis 09/25/2019 11/19/2019 Last Assessment & Plan: Resolved was Likely reactive No fever, no signs of infection Anemia 09/24/2019 11/19/2019 Last Assessment & Plan: hgb stable Slight drop in hemoglobin after the procedure Secondary to intra op blood loss Acute respiratory failure with hypoxia 9 11/19/2019 Last Assessment & Plan: Was requiring 4 lt of oxygen On room air now Chest x ray was clear Was likely atelectasis Continue incentive spirometry 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 Mena on 09/21 with Left common, superficial and profunda femoral endarterectomy, patch angioplasty. Continue home aspirin and plavix and statin Traumatic complete tear of left rotator cuff 11/19/2019 Overview: [facility]. Inguinal hernia 01/20/2018 06/20/2018 Overview: Added automatically from request for surgery [id number] Clostridium difficile colitis 05/14/2017 Right-sided low back pain with right-sided sciat ica 10/03/2015 05/15/2016 Rotator cuff impingement syndrome of right shoul leonie 04/10/2015 11/19/2019 Medicare annual wellness visit, subsequent 04/1006/20/2018 Inguinal neuralgia 03/12/2013 11/07/2016 Diarrhea 12/05/2010 09/06/2014 Frequency of urination 10/02/2010 7 Malignant neoplasm of prostate 02/07/2010 0 11/07/2016 Overview: Dr. Littlejohn- oncologist at [facility] Rotator cuff (capsule) sprain 09/20/2009 Inguinal hernia without ment ion of obstruction or gangrene, unilateral or unspecified, (not specified as recurrent) 10/11/2008 11/07/2016 Umbilical hernia without mention of obstruction or gangrene 10/11/2008 11/07/2016 Unspecified disorder of prostate 06/21/2007 09/06/2014 Ganglion of tendon sheath 03/19/20072016 HYPERTENSION NOS 09/02/2006 03/29/2014 Last Assessment & Plan: HTN: Mr. Vazquez indicates that he is feeling well and denies any symptoms referable to elevated blood pressure. Specifically denies headache, chest pain, palpitations and dyspnea. Patient denies any side effects of his medication(s) and is compliant with their regimen. 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 Tye denies regular aerobic exercise. He watches his diet for sodium, low fat and low cholesterol some of the time. Last 3 Encounter BP Readings: Date: BP: 05/09/2011 148/86- just took BP meds this am 02/22/2011 140/98 02/15/2011 118/70 Dermatophytosis of foot 11/27/2005 06/14/20 17 documented as of this encounter (statuses as of 03/15/2023) [facility] Past illness Narrative* Problem Noted Date Resolved Date Colitis 03/18/2022 11/01/2022 SHASHANK (acute kidney injury) 03/18/20222022 Acute postoperative pain 09/20/2020 021 History of Clostridium difficile colitis 020 11/01/2022 SDH (subdural hematoma) 09/14/2020 11/01/19 23 Last Assessment & Plan: Assessment: 09/15/20: Right crani for subdural evacuation PLAN: Pain control Bowel regimen Drain removed 09/18 Liberalize HOB Ambulate 3x daily Keppra 750 BID through 09/22 PTOT - pending Holding home ASA Leucocytosis 09/25/2019 11/19/2019 Last Assessment & Plan: Resolved was Likely reactive No fever, no signs of infection Anemia 09/24/2019 11/19/2019 Last Assessment & Plan: hgb stable Slight drop in hemoglobin after the procedure Secondary to intra op blood loss Acute respiratory failure with hypoxia 9 11/19/2019 Last Assessment & Plan: Was requiring 4 lt of oxygen On room air now Chest x ray was clear Was likely atelectasis Continue incentive spirometry 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 Mena on 09/21 with Left common, superficial and profunda femoral endarterectomy, patch angioplasty. Continue home aspirin and plavix and statin Traumatic complete tear of left rotator cuff 11/19/2019 Overview: [facility]. 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 Littlejohn- oncologist at [facility] Rotator cuff (capsule) sprain 09/20/2009 Inguinal hernia without ment ion of obstruction or gangrene, unilateral or unspecified, (not specified as recurrent) 10/11/2008 11/07/2016 Umbilical hernia without mention of obstruction or gangrene 10/11/2008 11/07/2016 Unspecified disorder of prostate 06/21/2007 09/06/2014 Ganglion of tendon sheath 03/19/20072016 HYPERTENSION NOS 09/02/2006 03/29/2014 Last Assessment & Plan: HTN: Mr. Vazquez indicates that he is feeling well and denies any symptoms referable to elevated blood pressure. Specifically denies headache, chest pain, palpitations and dyspnea. Patient denies any side effects of his medication(s) and is compliant with their regimen. 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 Tye denies regular aerobic exercise. He watches his diet for sodium, low fat and low cholesterol some of the time. Last 3 Encounter BP Readings: Date: BP: 05/09/2011 148/86- just took BP meds this am 02/22/2011 140/98 02/15/2011 118/70 Dermatophytosis of foot 11/27/2005 06/14/20 17 documented as of this encounter (statuses as of 04/12/2023) [facility] of Past illness Narrative* Problem Noted Date Diagnosed Date Resolved Date Colitis 03/18/2022 11/01/2022 SHASHANK (acute kidney injury) 03/18/2022 Acute postoperative pain 09/20/2020 History of Clostridium difficile colitis 09/15/2020 11/01/2022 SDH (subdural hematoma) 09/14/202010/14 Last Assessment & Plan: Assessment: 09/15/20: Right crani for subdural evacuation PLAN: Pain control Bowel regimen Drain removed 09/18 Liberalize HOB Ambulate 3x daily Keppra 750 BID through 09/22 PTOT - pending Holding home ASA Leucocytosis 09/25/2019 11/19/2019 Last Assessment & Plan: Resolved was Likely reactive No fever, no signs of infection Anemia 09/24/2019 11/19/2019 Last Assessment & Plan: hgb stable Slight drop in hemoglobin after the procedure Secondary to intra op blood loss Acute respiratory failure with hypoxia 09/24/2019 11/19/2019 Last Assessment & Plan: Was requiring 4 lt of oxygen On room air now Chest x ray was clear Was likely atelectasis Continue incentive spirometry 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 Mena on 09/21 with Left common, superficial and profunda femoral endarterectomy, patch angioplasty. Continue home aspirin and plavix and statin Traumatic complete tear of left rotator cuff 9 11/19/2019 Overview: [facility] Inguinal hernia 01/20/2018 06/20/2018 Overview: Added automatically from request for surgery [id number] Clostridium difficile colitis 05/14/2017 06/20/2018 Right-sided low back pain wi th right-sided sciatica 10/03/2015 05/15/2016 Rotator cuff impingement syn drome of right shoulder 04/10/2015 11/19/2019 Medicare annual wellness visit, subsequent 04/10/2015 06/20/2018 Inguinal neuralgia 03/12/2013 7 Diarrhea 12/05/2010 09/06/2014 Frequency of urination 10/02/201011/07 Malignant neoplasm of prostate 02/07/2010 11/07/2016 Overview: Dr. Littlejohn- oncologist at [facility] Rotator cuff (capsule) sprain 09/20/2009 11/07/2016 Inguinal hernia without ment ion of obstruction or gangrene, unilateral or unspecified, (not specified as recurrent) 10/11/2008 11/07/2016 Umbilical hernia without men tion of obstruction or gangrene 10/11/2008 11/07/2016 Unspecified disorder of prostate 06/21/2007 09/06/2014 Ganglion of tendon sheath 03/19/2007 HYPERTENSION NOS 09/02/2006 03/29/2014 Last Assessment & Plan: HTN: Mr. Vazquez indicates that he is feeling well and denies any symptoms referable to elevated blood pressure. Specifically denies headache, chest pain, palpitations and dyspnea. Patient denies any side effects of his medication(s) and is compliant with their regimen. 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 Tye denies regular aerobic exercise. He watches his diet for sodium, low fat and low cholesterol some of the time. Last 3 Encounter BP Readings: Date: BP: 05/09/2011 148/86- just took BP meds this am 02/22/2011 140/98 02/15/2011 118/70 Dermatophytosis of foot 11/27/2005 09/0 10/2016 documented as of this encounter (statuses as of 04/30/2023) [facility] of Past illness Narrative* Problem Noted Date Diagnosed Date Resolved Date Colitis 03/18/2022 11/01/2022 SHASHANK (acute kidney injury) 03/18/2022 Acute postoperative pain 09/20/2020 History of Clostridium difficile colitis 09/15/2020 11/01/2022 SDH (subdural hematoma) 09/14/202010/14 Last Assessment & Plan: Assessment: 09/15/20: Right crani for subdural evacuation PLAN: Pain control Bowel regimen Drain removed 09/18 Liberalize HOB Ambulate 3x daily Keppra 750 BID through 09/22 PTOT - pending Holding home ASA Leucocytosis 09/25/2019 11/19/2019 Last Assessment & Plan: Resolved was Likely reactive No fever, no signs of infection Anemia 09/24/2019 11/19/2019 Last Assessment & Plan: hgb stable Slight drop in hemoglobin after the procedure Secondary to intra op blood loss Acute respiratory failure with hypoxia 09/24/2019 11/19/2019 Last Assessment & Plan: Was requiring 4 lt of oxygen On room air now Chest x ray was clear Was likely atelectasis Continue incentive spirometry 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 Mena on 09/21 with Left common, superficial and profunda femoral endarterectomy, patch angioplasty. Continue home aspirin and plavix and statin Traumatic complete tear of left rotator cuff 9 11/19/2019 Overview: [facility] Inguinal hernia 01/20/2018 06/20/2018 Overview: Added automatically from request for surgery [id number] Clostridium difficile colitis 05/14/2017 06/20/2018 Right-sided low back pain wi th right-sided sciatica 10/03/2015 05/15/2016 Rotator cuff impingement syn drome of right shoulder 04/10/2015 11/19/2019 Medicare annual wellness visit, subsequent 04/10/2015 06/20/2018 Inguinal neuralgia 03/12/2013 7 Diarrhea 12/05/2010 09/06/2014 Frequency of urination 10/02/201011/07 Malignant neoplasm of prostate 02/07/2010 11/07/2016 Overview: Dr. Littlejohn- oncologist at [facility] Rotator cuff (capsule) sprain 09/20/2009 11/07/2016 Inguinal hernia without ment ion of obstruction or gangrene, unilateral or unspecified, (not specified as recurrent) 10/11/2008 11/07/2016 Umbilical hernia without men tion of obstruction or gangrene 10/11/2008 11/07/2016 Unspecified disorder of prostate 06/21/2007 09/06/2014 Ganglion of tendon sheath 03/19/2007 HYPERTENSION NOS 09/02/2006 03/29/2014 Last Assessment & Plan: HTN: Mr. Vazquez indicates that he is feeling well and denies any symptoms referable to elevated blood pressure. Specifically denies headache, chest pain, palpitations and dyspnea. Patient denies any side effects of his medication(s) and is compliant with their regimen. 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 Tye denies regular aerobic exercise. He watches his diet for sodium, low fat and low cholesterol some of the time. Last 3 Encounter BP Readings: Date: BP: 05/09/2011 148/86- just took BP meds this am 02/22/2011 140/98 02/15/2011 118/70 Dermatophytosis of foot 11/27/2005 09/0 10/2016 documented as of this encounter (statuses as of 05/17/2023) [facility]06-05-2022 History of Past illness Narrative* Problem Noted Date Diagnosed Date Resolved Date Colitis 03/18/2022 11/01/2022 SHASHANK (acute kidney injury) 03/18/2022 Acute postoperative pain 09/20/2020 History of Clostridium difficile colitis 09/15/2020 11/01/2022 SDH (subdural hematoma) 09/14/202010/14 Last Assessment & Plan: Assessment: 09/15/20: Right crani for subdural evacuation PLAN: Pain control Bowel regimen Drain removed 09/18 Liberalize HOB Ambulate 3x daily Keppra 750 BID through 09/22 PTOT - pending Holding home ASA Leucocytosis 09/25/2019 11/19/2019 Last Assessment & Plan: Resolved was Likely reactive No fever, no signs of infection Anemia 09/24/2019 11/19/2019 Last Assessment & Plan: hgb stable Slight drop in hemoglobin after the procedure Secondary to intra op blood loss Acute respiratory failure with hypoxia 09/24/2019 11/19/2019 Last Assessment & Plan: Was requiring 4 lt of oxygen On room air now Chest x ray was clear Was likely atelectasis Continue incentive spirometry 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 Mena on 09/21 with Left common, superficial and profunda femoral endarterectomy, patch angioplasty. Continue home aspirin and plavix and statin Traumatic complete tear of left rotator cuff 9 11/19/2019 Overview: [facility] Inguinal hernia 01/20/2018 06/20/2018 Overview: Added automatically from request for surgery [id number] Clostridium difficile colitis 05/14/2017 06/20/2018 Right-sided low back pain wi th right-sided sciatica 10/03/2015 05/15/2016 Rotator cuff impingement syn drome of right shoulder 04/10/2015 11/19/2019 Medicare annual wellness visit, subsequent 04/10/2015 06/20/2018 Inguinal neuralgia 03/12/2013 7 Diarrhea 12/05/2010 09/06/2014 Frequency of urination 10/02/201011/07 Malignant neoplasm of prostate 02/07/2010 11/07/2016 Overview: Dr. Littlejohn- oncologist at [facility] Rotator cuff (capsule) sprain 09/20/2009 11/07/2016 Inguinal hernia without ment ion of obstruction or gangrene, unilateral or unspecified, (not specified as recurrent) 10/11/2008 11/07/2016 Umbilical hernia without men tion of obstruction or gangrene 10/11/2008 11/07/2016 Unspecified disorder of prostate 06/21/2007 09/06/2014 Ganglion of tendon sheath 03/19/2007 HYPERTENSION NOS 09/02/2006 03/29/2014 Last Assessment & Plan: HTN: Mr. Vaqzuez indicates that he is feeling well and denies any symptoms referable to elevated blood pressure. Specifically denies headache, chest pain, palpitations and dyspnea. Patient denies any side effects of his medication(s) and is compliant with their regimen. 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 Tye denies regular aerobic exercise. He watches his diet for sodium, low fat and low cholesterol some of the time. Last 3 Encounter BP Readings: Date: BP: 05/09/2011 148/86- just took BP meds this am 02/22/2011 140/98 02/15/2011 118/70 Dermatophytosis of foot 11/27/2005 090 10/2016 documented as of this encounter (statuses as of 05/17/2023) [facility]06-[facility]-2022 History of Past illness Narrative* Problem Noted Date Diagnosed Date Resolved Date Colitis 03/18/2022 11/01/2022 SHASHANK (acute kidney injury) 03/18/2022 Acute postoperative pain 09/20/2020 History of Clostridium difficile colitis 09/15/2020 11/01/2022 SDH (subdural hematoma) 09/14/202010/14 Last Assessment & Plan: Assessment: 09/15/20: Right crani for subdural evacuation PLAN: Pain control Bowel regimen Drain removed 09/18 Liberalize HOB Ambulate 3x daily Keppra 750 BID through 09/22 PTOT - pending Holding home ASA Leucocytosis 09/25/2019 11/19/2019 Last Assessment & Plan: Resolved was Likely reactive No fever, no signs of infection Anemia 09/24/2019 11/19/2019 Last Assessment & Plan: hgb stable Slight drop in hemoglobin after the procedure Secondary to intra op blood loss Acute respiratory failure with hypoxia 09/24/2019 11/19/2019 Last Assessment & Plan: Was requiring 4 lt of oxygen On room air now Chest x ray was clear Was likely atelectasis Continue incentive spirometry 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 Mena on 09/21 with Left common, superficial and profunda femoral endarterectomy, patch angioplasty. Continue home aspirin and plavix and statin Traumatic complete tear of left rotator cuff 9 11/19/2019 Overview: [facility] Inguinal hernia 01/20/2018 06/20/2018 Overview: Added automatically from request for surgery [id number] Clostridium difficile colitis 05/14/2017 06/20/2018 Right-sided low back pain wi th right-sided sciatica 10/03/2015 05/15/2016 Rotator cuff impingement syn drome of right shoulder 04/10/2015 11/19/2019 Medicare annual wellness visit, subsequent 04/10/2015 06/20/2018 Inguinal neuralgia 03/12/2013 7 Diarrhea 12/05/2010 09/06/2014 Frequency of urination 10/02/201011/07 Malignant neoplasm of prostate 02/07/2010 11/07/2016 Overview: Dr. Littlejohn- oncologist at [facility] Rotator cuff (capsule) sprain 09/20/2009 11/07/2016 Inguinal hernia without ment ion of obstruction or gangrene, unilateral or unspecified, (not specified as recurrent) 10/11/2008 11/07/2016 Umbilical hernia without men tion of obstruction or gangrene 10/11/2008 11/07/2016 Unspecified disorder of prostate 06/21/2007 09/06/2014 Ganglion of tendon sheath 03/19/2007 HYPERTENSION NOS 09/02/2006 03/29/2014 Last Assessment & Plan: HTN: Mr. Vazquez indicates that he is feeling well and denies any symptoms referable to elevated blood pressure. Specifically denies headache, chest pain, palpitations and dyspnea. Patient denies any side effects of his medication(s) and is compliant with their regimen. 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 Tye denies regular aerobic exercise. He watches his diet for sodium, low fat and low cholesterol some of the time. Last 3 Encounter BP Readings: Date: BP: 05/09/2011 148/86- just took BP meds this am 02/22/2011 140/98 02/15/2011 118/70 Dermatophytosis of foot 11/27/200510/2016 documented as of this encounter (statuses as of 06/05/2023) [facility] History of Past illness Narrative* Problem Noted Date Diagnosed Date Resolved Date Colitis 03/18/2022 11/01/2022 SHASHANK (acute kidney injury) 03/18/2022 Acute postoperative pain 09/20/2020 History of Clostridium difficile colitis 09/15/2020 11/01/2022 SDH (subdural hematoma) 09/14/202010/14 Last Assessment & Plan: Assessment: 09/15/20: Right crani for subdural evacuation PLAN: Pain control Bowel regimen Drain removed 09/18 Liberalize HOB Ambulate 3x daily Keppra 750 BID through 09/22 PTOT - pending Holding home ASA Leucocytosis 09/25/2019 11/19/2019 Last Assessment & Plan: Resolved was Likely reactive No fever, no signs of infection Anemia 09/24/2019 11/19/2019 Last Assessment & Plan: hgb stable Slight drop in hemoglobin after the procedure Secondary to intra op blood loss Acute respiratory failure with hypoxia 09/24/2019 11/19/2019 Last Assessment & Plan: Was requiring 4 lt of oxygen On room air now Chest x ray was clear Was likely atelectasis Continue incentive spirometry 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 Mena on 09/21 with Left common, superficial and profunda femoral endarterectomy, patch angioplasty. Continue home aspirin and plavix and statin Traumatic complete tear of left rotator cuff 9 11/19/2019 Overview: [facility] Inguinal hernia 01/20/2018 06/20/2018 Overview: Added automatically from request for surgery [id number] Clostridium difficile colitis 05/14/2017 06/20/2018 Right-sided low back pain wi th right-sided sciatica 10/03/2015 05/15/2016 Rotator cuff impingement syn drome of right shoulder 04/10/2015 11/19/2019 Medicare annual wellness visit, subsequent 04/10/2015 06/20/2018 Inguinal neuralgia 03/12/2013 7 Diarrhea 12/05/2010 09/06/2014 Frequency of urination 10/02/201011/07 Malignant neoplasm of prostate 02/07/2010 11/07/2016 Overview: Dr. Littlejohn- oncologist at [facility] Rotator cuff (capsule) sprain 09/20/2009 11/07/2016 Inguinal hernia without ment ion of obstruction or gangrene, unilateral or unspecified, (not specified as recurrent) 10/11/2008 11/07/2016 Umbilical hernia without men tion of obstruction or gangrene 10/11/2008 11/07/2016 Unspecified disorder of prostate 06/21/2007 09/06/2014 Ganglion of tendon sheath 03/19/2007 HYPERTENSION NOS 09/02/2006 03/29/2014 Last Assessment & Plan: HTN: Mr. Vazquez indicates that he is feeling well and denies any symptoms referable to elevated blood pressure. Specifically denies headache, chest pain, palpitations and dyspnea. Patient denies any side effects of his medication(s) and is compliant with their regimen. 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 Tye denies regular aerobic exercise. He watches his diet for sodium, low fat and low cholesterol some of the time. Last 3 Encounter BP Readings: Date: BP: 05/09/2011 148/86- just took BP meds this am 02/22/2011 140/98 02/15/2011 118/70 Dermatophytosis of foot 11/27/2005 09/0 10/2016 documented as of this encounter (statuses as of 07/13/2023) [facility] History of Past illness Narrative* Problem Noted Date Diagnosed Date Resolved Date Colitis 03/18/2022 11/01/2022 SHASHANK (acute kidney injury) 03/18/2022 Acute postoperative pain 09/20/2020 History of Clostridium difficile colitis 09/15/2020 11/01/2022 SDH (subdural hematoma) 09/14/202010/14 Last Assessment & Plan: Assessment: 09/15/20: Right crani for subdural evacuation PLAN: Pain control Bowel regimen Drain removed 09/18 Liberalize HOB Ambulate 3x daily Keppra 750 BID through 09/22 PTOT - pending Holding home ASA Leucocytosis 09/25/2019 11/19/2019 Last Assessment & Plan: Resolved was Likely reactive No fever, no signs of infection Anemia 09/24/2019 11/19/2019 Last Assessment & Plan: hgb stable Slight drop in hemoglobin after the procedure Secondary to intra op blood loss Acute respiratory failure with hypoxia 09/24/2019 11/19/2019 Last Assessment & Plan: Was requiring 4 lt of oxygen On room air now Chest x ray was clear Was likely atelectasis Continue incentive spirometry 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 Mena on 09/21 with Left common, superficial and profunda femoral endarterectomy, patch angioplasty. Continue home aspirin and plavix and statin Traumatic complete tear of left rotator cuff 9 11/19/2019 Overview: [facility] Inguinal hernia 01/20/2018 06/20/2018 Overview: Added automatically from request for surgery [id number] Clostridium difficile colitis 05/14/2017 06/20/2018 Right-sided low back pain wi th right-sided sciatica 10/03/2015 05/15/2016 Rotator cuff impingement syn drome of right shoulder 04/10/2015 11/19/2019 Medicare annual wellness visit, subsequent 04/10/2015 06/20/2018 Inguinal neuralgia 03/12/2013 7 Diarrhea 12/05/2010 09/06/2014 Frequency of urination 10/02/201011/07 Malignant neoplasm of prostate 02/07/2010 11/07/2016 Overview: Dr. Littlejohn- oncologist at [facility] Rotator cuff (capsule) sprain 09/20/2009 11/07/2016 Inguinal hernia without ment ion of obstruction or gangrene, unilateral or unspecified, (not specified as recurrent) 10/11/2008 11/07/2016 Umbilical hernia without men tion of obstruction or gangrene 10/11/2008 11/07/2016 Unspecified disorder of prostate 06/21/2007 09/06/2014 Ganglion of tendon sheath 03/19/2007 HYPERTENSION NOS 09/02/2006 03/29/2014 Last Assessment & Plan: HTN: Mr. Vazquez indicates that he is feeling well and denies any symptoms referable to elevated blood pressure. Specifically denies headache, chest pain, palpitations and dyspnea. Patient denies any side effects of his medication(s) and is compliant with their regimen. 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 Tye denies regular aerobic exercise. He watches his diet for sodium, low fat and low cholesterol some of the time. Last 3 Encounter BP Readings: Date: BP: 05/09/2011 148/86- just took BP meds this am 02/22/2011 140/98 02/15/2011 118/70 Dermatophytosis of foot 11/27/2005 09/0 10/2016 documented as of this encounter (statuses as of 07/20/2023) [facility] History of Past illness Narrative* Problem Noted Date Diagnosed Date Resolved Date Colitis 03/18/2022 11/01/2022 SHASHANK (acute kidney injury) 03/18/2022 Acute postoperative pain 09/20/2020 History of Clostridium difficile colitis 09/15/2020 11/01/2022 SDH (subdural hematoma) 09/14/202010/14 Last Assessment & Plan: Assessment: 09/15/20: Right crani for subdural evacuation PLAN: Pain control Bowel regimen Drain removed 09/18 Liberalize HOB Ambulate 3x daily Keppra 750 BID through 09/22 PTOT - pending Holding home ASA Leucocytosis 09/25/2019 11/19/2019 Last Assessment & Plan: Resolved was Likely reactive No fever, no signs of infection Anemia 09/24/2019 11/19/2019 Last Assessment & Plan: hgb stable Slight drop in hemoglobin after the procedure Secondary to intra op blood loss Acute respiratory failure with hypoxia 09/24/2019 11/19/2019 Last Assessment & Plan: Was requiring 4 lt of oxygen On room air now Chest x ray was clear Was likely atelectasis Continue incentive spirometry 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 Mena on 09/21 with Left common, superficial and profunda femoral endarterectomy, patch angioplasty. Continue home aspirin and plavix and statin Traumatic complete tear of left rotator cuff 9 11/19/2019 Overview: [facility] Inguinal hernia 01/20/2018 06/20/2018 Overview: Added automatically from request for surgery [id number] Clostridium difficile colitis 05/14/2017 06/20/2018 Right-sided low back pain wi th right-sided sciatica 10/03/2015 05/15/2016 Rotator cuff impingement syn drome of right shoulder 04/10/2015 11/19/2019 Medicare annual wellness visit, subsequent 04/10/2015 06/20/2018 Inguinal neuralgia 03/12/2013 7 Diarrhea 12/05/2010 09/06/2014 Frequency of urination 10/02/201011/07 Malignant neoplasm of prostate 02/07/2010 11/07/2016 Overview: Dr. Littlejohn- oncologist at [facility] Rotator cuff (capsule) sprain 09/20/2009 11/07/2016 Inguinal hernia without ment ion of obstruction or gangrene, unilateral or unspecified, (not specified as recurrent) 10/11/2008 11/07/2016 Umbilical hernia without men tion of obstruction or gangrene 10/11/2008 11/07/2016 Unspecified disorder of prostate 06/21/2007 09/06/2014 Ganglion of tendon sheath 03/19/2007 HYPERTENSION NOS 09/02/2006 03/29/2014 Last Assessment & Plan: HTN: Mr. Vazquez indicates that he is feeling well and denies any symptoms referable to elevated blood pressure. Specifically denies headache, chest pain, palpitations and dyspnea. Patient denies any side effects of his medication(s) and is compliant with their regimen. 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 Tye denies regular aerobic exercise. He watches his diet for sodium, low fat and low cholesterol some of the time. Last 3 Encounter BP Readings: Date: BP: 05/09/2011 148/86- just took BP meds this am 02/22/2011 140/98 02/15/2011 118/70 Dermatophytosis of foot 11/27/200510/2016 documented as of this encounter (statuses as of 08/02/2023) [facility] History of Past illness Narrative* Problem Noted Date Diagnosed Date Resolved Date Colitis 03/18/2022 11/01/2022 SHASHANK (acute kidney injury) 03/18/2022 Acute postoperative pain 09/20/2020 History of Clostridium difficile colitis 09/15/2020 11/01/2022 SDH (subdural hematoma) 09/14/202010/14 Last Assessment & Plan: Assessment: 09/15/20: Right crani for subdural evacuation PLAN: Pain control Bowel regimen Drain removed 09/18 Liberalize HOB Ambulate 3x daily Keppra 750 BID through 09/22 PTOT - pending Holding home ASA Leucocytosis 09/25/2019 11/19/2019 Last Assessment & Plan: Resolved was Likely reactive No fever, no signs of infection Anemia 09/24/2019 11/19/2019 Last Assessment & Plan: hgb stable Slight drop in hemoglobin after the procedure Secondary to intra op blood loss Acute respiratory failure with hypoxia 09/24/2019 11/19/2019 Last Assessment & Plan: Was requiring 4 lt of oxygen On room air now Chest x ray was clear Was likely atelectasis Continue incentive spirometry 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 Mena on 09/21 with Left common, superficial and profunda femoral endarterectomy, patch angioplasty. Continue home aspirin and plavix and statin Traumatic complete tear of left rotator cuff 9 11/19/2019 Overview: [facility] Inguinal hernia 01/20/2018 06/20/2018 Overview: Added automatically from request for surgery [id number] Clostridium difficile colitis 05/14/2017 06/20/2018 Right-sided low back pain wi th right-sided sciatica 10/03/2015 05/15/2016 Rotator cuff impingement syn drome of right shoulder 04/10/2015 11/19/2019 Medicare annual wellness visit, subsequent 04/10/2015 06/20/2018 Inguinal neuralgia 03/12/2013 7 Diarrhea 12/05/2010 09/06/2014 Frequency of urination 10/02/201011/07 Malignant neoplasm of prostate 02/07/2010 11/07/2016 Overview: Dr. Littlejohn- oncologist at [facility] Rotator cuff (capsule) sprain 09/20/2009 11/07/2016 Inguinal hernia without ment ion of obstruction or gangrene, unilateral or unspecified, (not specified as recurrent) 10/11/2008 11/07/2016 Umbilical hernia without men tion of obstruction or gangrene 10/11/2008 11/07/2016 Unspecified disorder of prostate 06/21/2007 09/06/2014 Ganglion of tendon sheath 03/19/2007 HYPERTENSION NOS 09/02/2006 03/29/2014 Last Assessment & Plan: HTN: Mr. Vazquez indicates that he is feeling well and denies any symptoms referable to elevated blood pressure. Specifically denies headache, chest pain, palpitations and dyspnea. Patient denies any side effects of his medication(s) and is compliant with their regimen. 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 Tye denies regular aerobic exercise. He watches his diet for sodium, low fat and low cholesterol some of the time. Last 3 Encounter BP Readings: Date: BP: 05/09/2011 148/86- just took BP meds this am 02/22/2011 140/98 02/15/2011 118/70 Dermatophytosis of foot 11/27/2005 09/0 10/2016 documented as of this encounter (statuses as of 08/06/2023) [facility] History of Past illness Narrative* Problem Noted Date Diagnosed Date Resolved Date Colitis 03/18/2022 11/01/2022 SHASHANK (acute kidney injury) 03/18/2022 Acute postoperative pain 09/20/2020 History of Clostridium difficile colitis 09/15/2020 11/01/2022 SDH (subdural hematoma) 09/14/202010/14 Last Assessment & Plan: Assessment: 09/15/20: Right crani for subdural evacuation PLAN: Pain control Bowel regimen Drain removed 09/18 Liberalize HOB Ambulate 3x daily Keppra 750 BID through 09/22 PTOT - pending Holding home ASA Leucocytosis 09/25/2019 11/19/2019 Last Assessment & Plan: Resolved was Likely reactive No fever, no signs of infection Anemia 09/24/2019 11/19/2019 Last Assessment & Plan: hgb stable Slight drop in hemoglobin after the procedure Secondary to intra op blood loss Acute respiratory failure with hypoxia 09/24/2019 11/19/2019 Last Assessment & Plan: Was requiring 4 lt of oxygen On room air now Chest x ray was clear Was likely atelectasis Continue incentive spirometry 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 Mena on 09/21 with Left common, superficial and profunda femoral endarterectomy, patch angioplasty. Continue home aspirin and plavix and statin Traumatic complete tear of left rotator cuff 9 11/19/2019 Overview: [facility] Inguinal hernia 01/20/2018 06/20/2018 Overview: Added automatically from request for surgery [id number] Clostridium difficile colitis 05/14/2017 06/20/2018 Right-sided low back pain wi th right-sided sciatica 10/03/2015 05/15/2016 Rotator cuff impingement syn drome of right shoulder 04/10/2015 11/19/2019 Medicare annual wellness visit, subsequent 04/10/2015 06/20/2018 Inguinal neuralgia 03/12/2013 7 Diarrhea 12/05/2010 09/06/2014 Frequency of urination 10/02/201011/07 Malignant neoplasm of prostate 02/07/2010 11/07/2016 Overview: Dr. Littlejohn- oncologist at [facility] Rotator cuff (capsule) sprain 09/20/2009 11/07/2016 Inguinal hernia without ment ion of obstruction or gangrene, unilateral or unspecified, (not specified as recurrent) 10/11/2008 11/07/2016 Umbilical hernia without men tion of obstruction or gangrene 10/11/2008 11/07/2016 Unspecified disorder of prostate 06/21/2007 09/06/2014 Ganglion of tendon sheath 03/19/2007 HYPERTENSION NOS 09/02/2006 03/29/2014 Last Assessment & Plan: HTN: Mr. Vazquez indicates that he is feeling well and denies any symptoms referable to elevated blood pressure. Specifically denies headache, chest pain, palpitations and dyspnea. Patient denies any side effects of his medication(s) and is compliant with their regimen. 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 Tye denies regular aerobic exercise. He watches his diet for sodium, low fat and low cholesterol some of the time. Last 3 Encounter BP Readings: Date: BP: 05/09/2011 148/86- just took BP meds this am 02/22/2011 140/98 02/15/2011 118/70 Dermatophytosis of foot 11/27/2005 09/0 10/2016 documented as of this encounter (statuses as of 08/14/2023) [facility]06-05-2022 History of Past illness Narrative* Problem Noted Date Diagnosed Date Resolved Date Colitis 03/18/2022 11/01/2022 SHASHANK (acute kidney injury) 03/18/2022 Acute postoperative pain 09/20/2020 History of Clostridium difficile colitis 09/15/2020 11/01/2022 SDH (subdural hematoma) 09/14/202010/14 Last Assessment & Plan: Assessment: 09/15/20: Right crani for subdural evacuation PLAN: Pain control Bowel regimen Drain removed 09/18 Liberalize HOB Ambulate 3x daily Keppra 750 BID through 09/22 PTOT - pending Holding home ASA Leucocytosis 09/25/2019 11/19/2019 Last Assessment & Plan: Resolved was Likely reactive No fever, no signs of infection Anemia 09/24/2019 11/19/2019 Last Assessment & Plan: hgb stable Slight drop in hemoglobin after the procedure Secondary to intra op blood loss Acute respiratory failure with hypoxia 09/24/2019 11/19/2019 Last Assessment & Plan: Was requiring 4 lt of oxygen On room air now Chest x ray was clear Was likely atelectasis Continue incentive spirometry 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 Mena on 09/21 with Left common, superficial and profunda femoral endarterectomy, patch angioplasty. Continue home aspirin and plavix and statin Traumatic complete tear of left rotator cuff 9 11/19/2019 Overview: [facility]. Inguinal hernia 01/20/2018 06/20/2018 Overview: Added automatically from request for surgery [id number] Clostridium difficile colitis 05/14/2017 06/20/2018 Right-sided low back pain wi th right-sided sciatica 10/03/2015 05/15/2016 Rotator cuff impingement syn drome of right shoulder 04/10/2015 11/19/2019 Medicare annual wellness visit, subsequent 04/10/2015 06/20/2018 Inguinal neuralgia 03/12/2013 7 Diarrhea 12/05/2010 09/06/2014 Frequency of urination 10/02/201011/07 Malignant neoplasm of prostate 02/07/2010 11/07/2016 Overview: Dr. Littlejohn- oncologist at [facility] Rotator cuff (capsule) sprain 09/20/2009 11/07/2016 Inguinal hernia without ment ion of obstruction or gangrene, unilateral or unspecified, (not specified as recurrent) 10/11/2008 11/07/2016 Umbilical hernia without men tion of obstruction or gangrene 10/11/2008 11/07/2016 Unspecified disorder of prostate 06/21/2007 09/06/2014 Ganglion of tendon sheath 03/19/2007 HYPERTENSION NOS 09/02/2006 03/29/2014 Last Assessment & Plan: HTN: Mr. Vazquez indicates that he is feeling well and denies any symptoms referable to elevated blood pressure. Specifically denies headache, chest pain, palpitations and dyspnea. Patient denies any side effects of his medication(s) and is compliant with their regimen. 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 Tye denies regular aerobic exercise. He watches his diet for sodium, low fat and low cholesterol some of the time. Last 3 Encounter BP Readings: Date: BP: 05/09/2011 148/86- just took BP meds this am 02/22/2011 140/98 02/15/2011 118/70 Dermatophytosis of foot 11/27/2005 09/0 10/2016 documented as of this encounter (statuses as of 08/28/2023) [facility]06-[facility]-2022 History of Past illness Narrative* Problem Noted Date Diagnosed Date Resolved Date Colitis 03/18/2022 11/01/2022 SHASHANK (acute kidney injury) 03/18/2022 Acute postoperative pain 09/20/2020 History of Clostridium difficile colitis 09/15/2020 11/01/2022 SDH (subdural hematoma) 09/14/202010/14 Last Assessment & Plan: Assessment: 09/15/20: Right crani for subdural evacuation PLAN: Pain control Bowel regimen Drain removed 09/18 Liberalize HOB Ambulate 3x daily Keppra 750 BID through 09/22 PTOT - pending Holding home ASA Leucocytosis 09/25/2019 11/19/2019 Last Assessment & Plan: Resolved was Likely reactive No fever, no signs of infection Anemia 09/24/2019 11/19/2019 Last Assessment & Plan: hgb stable Slight drop in hemoglobin after the procedure Secondary to intra op blood loss Acute respiratory failure with hypoxia 09/24/2019 11/19/2019 Last Assessment & Plan: Was requiring 4 lt of oxygen On room air now Chest x ray was clear Was likely atelectasis Continue incentive spirometry 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 Mena on 09/21 with Left common, superficial and profunda femoral endarterectomy, patch angioplasty. Continue home aspirin and plavix and statin Traumatic complete tear of left rotator cuff 9 11/19/2019 Overview: [facility] Inguinal hernia 01/20/2018 06/20/2018 Overview: Added automatically from request for surgery [id number] Clostridium difficile colitis 05/14/2017 06/20/2018 Right-sided low back pain wi th right-sided sciatica 10/03/2015 05/15/2016 Rotator cuff impingement syn drome of right shoulder 04/10/2015 11/19/2019 Medicare annual wellness visit, subsequent 04/10/2015 06/20/2018 Inguinal neuralgia 03/12/2013 7 Diarrhea 12/05/2010 09/06/2014 Frequency of urination 10/02/201011/07 Malignant neoplasm of prostate 02/07/2010 11/07/2016 Overview: Dr. Littlejohn- oncologist at [facility] Rotator cuff (capsule) sprain 09/20/2009 11/07/2016 Inguinal hernia without ment ion of obstruction or gangrene, unilateral or unspecified, (not specified as recurrent) 10/11/2008 11/07/2016 Umbilical hernia without men tion of obstruction or gangrene 10/11/2008 11/07/2016 Unspecified disorder of prostate 06/21/2007 09/06/2014 Ganglion of tendon sheath 03/19/2007 HYPERTENSION NOS 09/02/2006 03/29/2014 Last Assessment & Plan: HTN: Mr. Vazquez indicates that he is feeling well and denies any symptoms referable to elevated blood pressure. Specifically denies headache, chest pain, palpitations and dyspnea. Patient denies any side effects of his medication(s) and is compliant with their regimen. 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 Tye denies regular aerobic exercise. He watches his diet for sodium, low fat and low cholesterol some of the time. Last 3 Encounter BP Readings: Date: BP: 05/09/2011 148/86- just took BP meds this am 02/22/2011 140/98 02/15/2011 118/70 Dermatophytosis of foot 11/27/2005 09/0 10/2016 documented as of this encounter (statuses as of 09/09/2023) [facility]22 History of Past illness Narrative* Problem Noted Date Diagnosed Date Resolved Date Colitis 03/18/2022 11/01/2022 SHASHANK (acute kidney injury) 03/18/2022 Acute postoperative pain 09/20/2020 History of Clostridium difficile colitis 09/15/2020 11/01/2022 SDH (subdural hematoma) 09/14/202010/14 Last Assessment & Plan: Assessment: 09/15/20: Right crani for subdural evacuation PLAN: Pain control Bowel regimen Drain removed 09/18 Liberalize HOB Ambulate 3x daily Keppra 750 BID through 09/22 PTOT - pending Holding home ASA Leucocytosis 09/25/2019 11/19/2019 Last Assessment & Plan: Resolved was Likely reactive No fever, no signs of infection Anemia 09/24/2019 11/19/2019 Last Assessment & Plan: hgb stable Slight drop in hemoglobin after the procedure Secondary to intra op blood loss Acute respiratory failure with hypoxia 09/24/2019 11/19/2019 Last Assessment & Plan: Was requiring 4 lt of oxygen On room air now Chest x ray was clear Was likely atelectasis Continue incentive spirometry 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 Mena on 09/21 with Left common, superficial and profunda femoral endarterectomy, patch angioplasty. Continue home aspirin and plavix and statin Traumatic complete tear of left rotator cuff 9 11/19/2019 Overview: [facility] Inguinal hernia 01/20/2018 06/20/2018 Overview: Added automatically from request for surgery [id number] Clostridium difficile colitis 05/14/2017 06/20/2018 Right-sided low back pain wi th right-sided sciatica 10/03/2015 05/15/2016 Rotator cuff impingement syn drome of right shoulder 04/10/2015 11/19/2019 Medicare annual wellness visit, subsequent 04/10/2015 06/20/2018 Inguinal neuralgia 03/12/2013 7 Diarrhea 12/05/2010 09/06/2014 Frequency of urination 10/02/201011/07 Malignant neoplasm of prostate 02/07/2010 11/07/2016 Overview: Dr. Littlejohn- oncologist at [facility] Rotator cuff (capsule) sprain 09/20/2009 11/07/2016 Inguinal hernia without ment ion of obstruction or gangrene, unilateral or unspecified, (not specified as recurrent) 10/11/2008 11/07/2016 Umbilical hernia without men tion of obstruction or gangrene 10/11/2008 11/07/2016 Unspecified disorder of prostate 06/21/2007 09/06/2014 Ganglion of tendon sheath 03/19/2007 HYPERTENSION NOS 09/02/2006 03/29/2014 Last Assessment & Plan: HTN: Mr. Vazquez indicates that he is feeling well and denies any symptoms referable to elevated blood pressure. Specifically denies headache, chest pain, palpitations and dyspnea. Patient denies any side effects of his medication(s) and is compliant with their regimen. 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 Tye denies regular aerobic exercise. He watches his diet for sodium, low fat and low cholesterol some of the time. Last 3 Encounter BP Readings: Date: BP: 05/09/2011 148/86- just took BP meds this am 02/22/2011 140/98 02/15/2011 118/70 Dermatophytosis of foot 11/27/2005 09/0 10/2016 documented as of this encounter (statuses as of 09/12/2023) [facility] History of Past illness Narrative* Problem Noted Date Diagnosed Date Resolved Date Colitis 03/18/2022 11/01/2022 SHASHANK (acute kidney injury) 03/18/2022 Acute postoperative pain 09/20/2020 History of Clostridium difficile colitis 09/15/2020 11/01/2022 SDH (subdural hematoma) 09/14/202010/14 Last Assessment & Plan: Assessment: 09/15/20: Right crani for subdural evacuation PLAN: Pain control Bowel regimen Drain removed 09/18 Liberalize HOB Ambulate 3x daily Keppra 750 BID through 09/22 PTOT - pending Holding home ASA Leucocytosis 09/25/2019 11/19/2019 Last Assessment & Plan: Resolved was Likely reactive No fever, no signs of infection Anemia 09/24/2019 11/19/2019 Last Assessment & Plan: hgb stable Slight drop in hemoglobin after the procedure Secondary to intra op blood loss Acute respiratory failure with hypoxia 09/24/2019 11/19/2019 Last Assessment & Plan: Was requiring 4 lt of oxygen On room air now Chest x ray was clear Was likely atelectasis Continue incentive spirometry 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 Mena on 09/21 with Left common, superficial and profunda femoral endarterectomy, patch angioplasty. Continue home aspirin and plavix and statin Traumatic complete tear of left rotator cuff 9 11/19/2019 Overview: [facility]. Inguinal hernia 01/20/2018 06/20/2018 Overview: Added automatically from request for surgery [id number] Clostridium difficile colitis 05/14/2017 06/20/2018 Right-sided low back pain wi th right-sided sciatica 10/03/2015 05/15/2016 Rotator cuff impingement syn drome of right shoulder 04/10/2015 11/19/2019 Medicare annual wellness visit, subsequent 04/10/2015 06/20/2018 Inguinal neuralgia 03/12/2013 7 Diarrhea 12/05/2010 09/06/2014 Frequency of urination 10/02/201011/07 Malignant neoplasm of prostate 02/07/2010 11/07/2016 Overview: Dr. Littlejohn- oncologist at [facility] Rotator cuff (capsule) sprain 09/20/2009 11/07/2016 Inguinal hernia without ment ion of obstruction or gangrene, unilateral or unspecified, (not specified as recurrent) 10/11/2008 11/07/2016 Umbilical hernia without men tion of obstruction or gangrene 10/11/2008 11/07/2016 Unspecified disorder of prostate 06/21/2007 09/06/2014 Ganglion of tendon sheath 03/19/2007 HYPERTENSION NOS 09/02/2006 03/29/2014 Last Assessment & Plan: HTN: Mr. Vazquez indicates that he is feeling well and denies any symptoms referable to elevated blood pressure. Specifically denies headache, chest pain, palpitations and dyspnea. Patient denies any side effects of his medication(s) and is compliant with their regimen. 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 Tye denies regular aerobic exercise. He watches his diet for sodium, low fat and low cholesterol some of the time. Last 3 Encounter BP Readings: Date: BP: 05/09/2011 148/86- just took BP meds this am 02/22/2011 140/98 02/15/2011 118/70 Dermatophytosis of foot 11/27/2005 090 10/2016 documented as of this encounter (statuses as of 09/18/2023) [facility] History of Past illness Narrative* Problem Noted Date Diagnosed Date Resolved Date Colitis 03/18/2022 11/01/2022 SHASHANK (acute kidney injury) 03/18/2022 Acute postoperative pain 09/20/2020 History of Clostridium difficile colitis 09/15/2020 11/01/2022 SDH (subdural hematoma) 09/14/202010/14 Last Assessment & Plan: Assessment: 09/15/20: Right crani for subdural evacuation PLAN: Pain control Bowel regimen Drain removed 09/18 Liberalize HOB Ambulate 3x daily Keppra 750 BID through 09/22 PTOT - pending Holding home ASA Leucocytosis 09/25/2019 11/19/2019 Last Assessment & Plan: Resolved was Likely reactive No fever, no signs of infection Anemia 09/24/2019 11/19/2019 Last Assessment & Plan: hgb stable Slight drop in hemoglobin after the procedure Secondary to intra op blood loss Acute respiratory failure with hypoxia 09/24/2019 11/19/2019 Last Assessment & Plan: Was requiring 4 lt of oxygen On room air now Chest x ray was clear Was likely atelectasis Continue incentive spirometry 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 Mena on 09/21 with Left common, superficial and profunda femoral endarterectomy, patch angioplasty. Continue home aspirin and plavix and statin Traumatic complete tear of left rotator cuff 9 11/19/2019 Overview: [facility] Inguinal hernia 01/20/2018 06/20/2018 Overview: Added automatically from request for surgery [id number] Clostridium difficile colitis 05/14/2017 06/20/2018 Right-sided low back pain wi th right-sided sciatica 10/03/2015 05/15/2016 Rotator cuff impingement syn drome of right shoulder 04/10/2015 11/19/2019 Medicare annual wellness visit, subsequent 04/10/2015 06/20/2018 Inguinal neuralgia 03/12/2013 7 Diarrhea 12/05/2010 09/06/2014 Frequency of urination 10/02/201011/07 Malignant neoplasm of prostate 02/07/2010 11/07/2016 Overview: Dr. Littlejohn- oncologist at [facility] Rotator cuff (capsule) sprain 09/20/2009 11/07/2016 Inguinal hernia without ment ion of obstruction or gangrene, unilateral or unspecified, (not specified as recurrent) 10/11/2008 11/07/2016 Umbilical hernia without men tion of obstruction or gangrene 10/11/2008 11/07/2016 Unspecified disorder of prostate 06/21/2007 09/06/2014 Ganglion of tendon sheath 03/19/2007 HYPERTENSION NOS 09/02/2006 03/29/2014 Last Assessment & Plan: HTN: Mr. Vazquez indicates that he is feeling well and denies any symptoms referable to elevated blood pressure. Specifically denies headache, chest pain, palpitations and dyspnea. Patient denies any side effects of his medication(s) and is compliant with their regimen. 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 Tye denies regular aerobic exercise. He watches his diet for sodium, low fat and low cholesterol some of the time. Last 3 Encounter BP Readings: Date: BP: 05/09/2011 148/86- just took BP meds this am 02/22/2011 140/98 02/15/2011 118/70 Dermatophytosis of foot 11/27/200510/2016 documented as of this encounter (statuses as of 09/20/2023) [facility] History of Past illness Narrative* Problem Noted Date Diagnosed Date Resolved Date Colitis 03/18/2022 11/01/2022 SHASHANK (acute kidney injury) 03/18/2022 Acute postoperative pain 09/20/2020 History of Clostridium difficile colitis 09/15/2020 11/01/2022 SDH (subdural hematoma) 09/14/202010/14 Last Assessment & Plan: Assessment: 09/15/20: Right crani for subdural evacuation PLAN: Pain control Bowel regimen Drain removed 09/18 Liberalize HOB Ambulate 3x daily Keppra 750 BID through 09/22 PTOT - pending Holding home ASA Leucocytosis 09/25/2019 11/19/2019 Last Assessment & Plan: Resolved was Likely reactive No fever, no signs of infection Anemia 09/24/2019 11/19/2019 Last Assessment & Plan: hgb stable Slight drop in hemoglobin after the procedure Secondary to intra op blood loss Acute respiratory failure with hypoxia 09/24/2019 11/19/2019 Last Assessment & Plan: Was requiring 4 lt of oxygen On room air now Chest x ray was clear Was likely atelectasis Continue incentive spirometry 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 Mena on 09/21 with Left common, superficial and profunda femoral endarterectomy, patch angioplasty. Continue home aspirin and plavix and statin Traumatic complete tear of left rotator cuff 9 11/19/2019 Overview: [facility] Inguinal hernia 01/20/2018 06/20/2018 Overview: Added automatically from request for surgery [id number] Clostridium difficile colitis 05/14/2017 06/20/2018 Right-sided low back pain wi th right-sided sciatica 10/03/2015 05/15/2016 Rotator cuff impingement syn drome of right shoulder 04/10/2015 11/19/2019 Medicare annual wellness visit, subsequent 04/10/2015 06/20/2018 Inguinal neuralgia 03/12/2013 7 Diarrhea 12/05/2010 09/06/2014 Frequency of urination 10/02/201011/07 Malignant neoplasm of prostate 02/07/2010 11/07/2016 Overview: Dr. Littlejohn- oncologist at [facility] Rotator cuff (capsule) sprain 09/20/2009 11/07/2016 Inguinal hernia without ment ion of obstruction or gangrene, unilateral or unspecified, (not specified as recurrent) 10/11/2008 11/07/2016 Umbilical hernia without men tion of obstruction or gangrene 10/11/2008 11/07/2016 Unspecified disorder of prostate 06/21/2007 09/06/2014 Ganglion of tendon sheath 03/19/2007 HYPERTENSION NOS 09/02/2006 03/29/2014 Last Assessment & Plan: HTN: Mr. Vazquez indicates that he is feeling well and denies any symptoms referable to elevated blood pressure. Specifically denies headache, chest pain, palpitations and dyspnea. Patient denies any side effects of his medication(s) and is compliant with their regimen. 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 Tye denies regular aerobic exercise. He watches his diet for sodium, low fat and low cholesterol some of the time. Last 3 Encounter BP Readings: Date: BP: 05/09/2011 148/86- just took BP meds this am 02/22/2011 140/98 02/15/2011 118/70 Dermatophytosis of foot 11/27/2005 09/0 10/2016 documented as of this encounter (statuses as of 12/19/2023) [facility] History of Past illness Narrative* Problem Noted Date Diagnosed Date Resolved Date Colitis 03/18/2022 11/01/2022 SHASHANK (acute kidney injury) 03/18/2022 Acute postoperative pain 09/20/2020 History of Clostridium difficile colitis 09/15/2020 11/01/2022 SDH (subdural hematoma) 09/14/202010/14 Last Assessment & Plan: Assessment: 09/15/20: Right crani for subdural evacuation PLAN: Pain control Bowel regimen Drain removed 09/18 Liberalize HOB Ambulate 3x daily Keppra 750 BID through 09/22 PTOT - pending Holding home ASA Leucocytosis 09/25/2019 11/19/2019 Last Assessment & Plan: Resolved was Likely reactive No fever, no signs of infection Anemia 09/24/2019 11/19/2019 Last Assessment & Plan: hgb stable Slight drop in hemoglobin after the procedure Secondary to intra op blood loss Acute respiratory failure with hypoxia 09/24/2019 11/19/2019 Last Assessment & Plan: Was requiring 4 lt of oxygen On room air now Chest x ray was clear Was likely atelectasis Continue incentive spirometry 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 Mena on 09/21 with Left common, superficial and profunda femoral endarterectomy, patch angioplasty. Continue home aspirin and plavix and statin Traumatic complete tear of left rotator cuff 9 11/19/2019 Overview: [facility] 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 Littlejohn- oncologist at [facility] Rotator cuff (capsule) sprain 09/20/2009 11/07/2016 Inguinal hernia without ment ion of obstruction or gangrene, unilateral or unspecified, (not specified as recurrent) 10/11/2008 11/07/2016 Umbilical hernia without men tion of obstruction or gangrene 10/11/2008 11/07/2016 Unspecified disorder of prostate 06/21/2007 09/06/2014 Ganglion of tendon sheath 03/19/2007 HYPERTENSION NOS 09/02/2006 03/29/2014 Last Assessment & Plan: HTN: Mr. Vazquez indicates that he is feeling well and denies any symptoms referable to elevated blood pressure. Specifically denies headache, chest pain, palpitations and dyspnea. Patient denies any side effects of his medication(s) and is compliant with their regimen. 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 Tye denies regular aerobic exercise. He watches his diet for sodium, low fat and low cholesterol some of the time. Last 3 Encounter BP Readings: Date: BP: 05/09/2011 148/86- just took BP meds this am 02/22/2011 140/98 02/15/2011 118/70 Dermatophytosis of foot 11/27/2005 09/0 10/2016 documented as of this encounter (statuses as of 12/31/2023) [facility]06-05-2022 History of Past illness Narrative* Problem Noted Date Diagnosed Date Resolved Date Colitis 03/18/2022 11/01/2022 SHASHANK (acute kidney injury) 03/18/2022 Acute postoperative pain 09/20/2020 History of Clostridium difficile colitis 09/15/2020 11/01/2022 SDH (subdural hematoma) 09/14/202010/14 Last Assessment & Plan: Assessment: 09/15/20: Right crani for subdural evacuation PLAN: Pain control Bowel regimen Drain removed 09/18 Liberalize HOB Ambulate 3x daily Keppra 750 BID through 09/22 PTOT - pending Holding home ASA Leucocytosis 09/25/2019 11/19/2019 Last Assessment & Plan: Resolved was Likely reactive No fever, no signs of infection Anemia 09/24/2019 11/19/2019 Last Assessment & Plan: hgb stable Slight drop in hemoglobin after the procedure Secondary to intra op blood loss Acute respiratory failure with hypoxia 09/24/2019 11/19/2019 Last Assessment & Plan: Was requiring 4 lt of oxygen On room air now Chest x ray was clear Was likely atelectasis Continue incentive spirometry 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 Mena on 09/21 with Left common, superficial and profunda femoral endarterectomy, patch angioplasty. Continue home aspirin and plavix and statin Traumatic complete tear of left rotator cuff 9 11/19/2019 Overview: [facility]. 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 Littlejohn- oncologist at [facility] Rotator cuff (capsule) sprain 09/20/2009 11/07/2016 Inguinal hernia without ment ion of obstruction or gangrene, unilateral or unspecified, (not specified as recurrent) 10/11/2008 11/07/2016 Umbilical hernia without men tion of obstruction or gangrene 10/11/2008 11/07/2016 Unspecified disorder of prostate 06/21/2007 09/06/2014 Ganglion of tendon sheath 03/19/2007 HYPERTENSION NOS 09/02/2006 03/29/2014 Last Assessment & Plan: HTN: Mr. Vazquez indicates that he is feeling well and denies any symptoms referable to elevated blood pressure. Specifically denies headache, chest pain, palpitations and dyspnea. Patient denies any side effects of his medication(s) and is compliant with their regimen. 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 Tye denies regular aerobic exercise. He watches his diet for sodium, low fat and low cholesterol some of the time. Last 3 Encounter BP Readings: Date: BP: 05/09/2011 148/86- just took BP meds this am 02/22/2011 140/98 02/15/2011 118/70 Dermatophytosis of foot 11/27/200510/2016 documented as of this encounter (statuses as of 01/01/2024) [facility]06-[facility] History of Past illness Narrative* Problem Noted Date Diagnosed Date Resolved Date Colitis 03/18/2022 11/01/2022 SHASHANK (acute kidney injury) 03/18/2022 Acute postoperative pain 09/20/2020 History of Clostridium difficile colitis 09/15/2020 11/01/2022 SDH (subdural hematoma) 09/14/202010/14 Last Assessment & Plan: Assessment: 09/15/20: Right crani for subdural evacuation PLAN: Pain control Bowel regimen Drain removed 09/18 Liberalize HOB Ambulate 3x daily Keppra 750 BID through 09/22 PTOT - pending Holding home ASA Leucocytosis 09/25/2019 11/19/2019 Last Assessment & Plan: Resolved was Likely reactive No fever, no signs of infection Anemia 09/24/2019 11/19/2019 Last Assessment & Plan: hgb stable Slight drop in hemoglobin after the procedure Secondary to intra op blood loss Acute respiratory failure with hypoxia 09/24/2019 11/19/2019 Last Assessment & Plan: Was requiring 4 lt of oxygen On room air now Chest x ray was clear Was likely atelectasis Continue incentive spirometry 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 Mena on 09/21 with Left common, superficial and profunda femoral endarterectomy, patch angioplasty. Continue home aspirin and plavix and statin Traumatic complete tear of left rotator cuff 9 11/19/2019 Overview: [facility]. 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 Littlejohn- oncologist at [facility] Rotator cuff (capsule) sprain 09/20/2009 11/07/2016 Inguinal hernia without ment ion of obstruction or gangrene, unilateral or unspecified, (not specified as recurrent) 10/11/2008 11/07/2016 Umbilical hernia without men tion of obstruction or gangrene 10/11/2008 11/07/2016 Unspecified disorder of prostate 06/21/2007 09/06/2014 Ganglion of tendon sheath 03/19/2007 HYPERTENSION NOS 09/02/2006 03/29/2014 Last Assessment & Plan: HTN: Mr. Vazquez indicates that he is feeling well and denies any symptoms referable to elevated blood pressure. Specifically denies headache, chest pain, palpitations and dyspnea. Patient denies any side effects of his medication(s) and is compliant with their regimen. 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 Tye denies regular aerobic exercise. He watches his diet for sodium, low fat and low cholesterol some of the time. Last 3 Encounter BP Readings: Date: BP: 05/09/2011 148/86- just took BP meds this am 02/22/2011 140/98 02/15/2011 118/70 Dermatophytosis of foot 11/27/2005 09/0 10/2016 documented as of this encounter (statuses as of 01/23/2024) [facility]04-25-2022 Miscellaneous Notes* Telephone Encounter - Shavonne Perera LPN - 02/05/2022 11:12 AM EDT Last appt with [facility] 09/29/21 Next appt due in March. Please call pt to arrange * Telephone Encounter - Ayla Benson Pss - 02/05/2022 9:23 AM EDT Patient has been identified by name and date of : Yes Pending Prescriptions Disp Refills AMLODIPINE 10 MG TABLET 90 tablet 3 Sig: Take 1 tablet by mouth once daily. SAY: No RX INSTRUCTIONS: Patient aware RX will be sent to pharmacy. No need to notify patient. Ayla Benson Pss documented in [facility] encounterBarn[facility] Miscellaneous Notes* Telephone Encounter - Liv Molina LPN - 01/11/2022 3:39 PM EDT Patient has been identified by name and date of : Yes Patient phones for refill(s): Pending Prescriptions Disp Refills LISINOPRIL 40 MG TABLET 90 tablet 0 Sig: Take 1 tablet by mouth once daily. SAY: No Date of last office visit in primary care: 09/29/2021 No future appt scheduled. Last 2 Encounter Wt Readings: Date: Wt: 01/04/2022 72.9 kg (160 lb 12.8 oz) 10/11/2021 71.7 kg (158 lb) Previous labs/tests for medication: Blood Pressure: BUN (mg/dL) Date Value 09/18/2021 14 Sodium (mmol/L) Date Value 09/18/2021 139 Last 1 Encounter BP Readings: Date: BP: 01/04/2022 132/76 Please advise. Thank you. Liv Molina LPN * Telephone Encounter - Alpa Yee - 01/11/2022 1:12 PM EDT Patient has been identified by name and date of : Yes Pending Prescriptions Disp Refills LISINOPRIL 40 MG TABLET 90 tablet 3 Sig: Take 1 tablet by mouth once daily. SAY: No RX INSTRUCTIONS: Patient aware RX will be sent to pharmacy. No need to notify patient. Alpa Yee documented in this encounterBarn[facility]03-[facility] History of Present illness Narrative* Alisson Nicholson RT(R) - 01/04/2022 10:20 AM EDT Radiology Service Progress Note PATIENT NAME: Tye Vazquez DATE OF SERVICE: January 04, 2022 TIME: 10:15 AM PATIENT IDENTITY VERIFICATION COMPLETED USING TWO (2) IDENTIFIERS: Name and Date of confirmedby patient verbally. FALL SCREENING: Has the patient had 2 falls in the last year or 1 fall with injury or currently using an Ambulatory Assistive Device (Walker, Cane, Wheelchair, Crutches, etc.)? No PATIENT GENDER DATA: Male PATIENT RELEVANT IMPLANT DATA REVIEWED: Not Applicable RADIOLOGY DEPARTMENT: General X-ray: Exam(s) Completed: Upper Extremity X- Ray(s): Hand, left PERIPHERAL IV DATA: Not applicable SIGNED BY: RT Nichelle(R) January 04, 2022 10:15 AM documented in this encounterBarnesville Hospital03-09-2022 Miscellaneous Notes* Telephone Encounter - Talon Bolaños MD - 12/20/2021 6:22 PM EST Transmission failed earlier. Receipt confirmed now. Please inform the patient. Signed Prescriptions Disp Refills doxazosin (CARDURA) 8 mg tablet 90 tablet 1 Sig: Take 1 tablet by mouth daily at bedtime. SAY: No Authorizing Provider: TALON BOLAÑOS gabapentin (NEURONTIN) 300 mg capsule 180 capsule 1 Sig: Take 2 capsules by mouth daily at bedtime for 180 days. SAY: No Authorizing Provider: TALON BOLAÑOS metoprolol tartrate, short acting, (LOPRESSOR) 50 mg tablet 180 tablet 3 Sig: Take 1 tablet by mouth twice daily. SAY: No Authorizing Provider: TALON BOLAÑOS MD * Telephone Encounter - Abdiel Layne Ma - 12/20/2021 5:02 PM EST Pending * Telephone Encounter - Samanta Constantino Pss - 12/20/2021 3:40 PM EST Pharmacy [facility] Patient has been identified by name and date of : Yes Patient aware RX will be sent to pharmacy. No need to notify patient. Patient phones for refill(s): 3 medications were sent to [facility] on [address], but it appears the transmission failed. Please call them in this evening. Patient is sergei. Date of last office visit : 09/29/2021 Date of next office visit : Visit date not found Last 2 Encounter Wt Readings: Date: Wt: 10/11/2021 71.7 kg (158 lb) 09/29/2021 72.6 kg (160 lb) Please advise. Samanta Constantino Pss documented in this encounterBarnesville Hospital12-29-2021 History of Present illness Narrative* Daniela López, RT(R) - 10/11/2021 11:00 AM EST Radiology Service Progress Note PATIENT NAME: Tye Vazquez DATE OF SERVICE: October 11, 2021 TIME: 10:54 AM PATIENT IDENTITY VERIFICATION COMPLETED USING TWO (2) IDENTIFIERS: Name and Date of confirmedby patient verbally. FALL SCREENING: Has the patient had 2 falls in the last year or 1 fall with injury or currently using an Ambulatory Assistive Device (Walker, Cane, Wheelchair, Crutches, etc.)? No PATIENT GENDER DATA: Male PATIENT RELEVANT IMPLANT DATA REVIEWED: Yes RADIOLOGY DEPARTMENT: General X-ray: Exam(s) Completed: Chest X-Ray PERIPHERAL IV DATA: Not applicable SIGNED BY: RT Ruben(R) October 11, 2021 10:54 AM documented in this encounterBarnesville Hospital05-10-2021 History of Present illness Narrative* Alisson Nicholson RT(Angie) - 02/20/2021 1:50 PM EDT Radiology Service Progress Note PATIENT NAME: Tye Vazquez DATE OF SERVICE: February 20, 2021 TIME: 1:52 PM PATIENT IDENTITY VERIFICATION COMPLETED USING TWO (2) IDENTIFIERS: Name and Date of confirmedby patient verbally. FALL SCREENING: Has the patient had 2 falls in the last year or 1 fall with injury or currently using an Ambulatory Assistive Device (Walker, Cane, Wheelchair, Crutches, etc.)? No PATIENT GENDER DATA: Male PATIENT RELEVANT IMPLANT DATA REVIEWED: Not Applicable RADIOLOGY DEPARTMENT: General X-ray: Exam(s) Completed: Chest X-Ray PERIPHERAL IV DATA: Not applicable SIGNED BY: RT Nichelle(Angie) February 20, 2021 1:52 PM documented in this encounterBarnesville Hospital12-08-2020 History of Past illness Narrative* Problem Noted Date Resolved Date Acute postoperative pain 09/20/2020 021 Leucocytosis 09/25/2019 11/19/2019 Last Assessment & Plan: Resolved was Likely reactive No fever, no signs of infection Anemia 09/24/2019 11/19/2019 Last Assessment & Plan: hgb stable Slight drop in hemoglobin after the procedure Secondary to intra op blood loss Acute respiratory failure with hypoxia 9 11/19/2019 Last Assessment & Plan: Was requiring 4 lt of oxygen On room air now Chest x ray was clear Was likely atelectasis Continue incentive spirometry Traumatic complete tear of left rotator cuff 11/19/2019 Overview: [facility] Inguinal hernia 01/20/2018 06/20/2018 Overview: Added automatically from request for surgery [id number] Clostridium difficile colitis 05/14/2017 Right-sided low back pain with right-sided sciat ica 10/03/2015 05/15/2016 Rotator cuff impingement syndrome of right shoul leonie 04/10/2015 11/19/2019 Medicare annual wellness visit, subsequent 04/1006/20/2018 Inguinal neuralgia 03/12/2013 11/07/2016 Diarrhea 12/05/2010 09/06/2014 Frequency of urination 10/02/2010 7 Malignant neoplasm of prostate 02/07/2010 0 11/07/2016 Overview: Dr. Littlejohn- oncologist at [facility] Rotator cuff (capsule) sprain 09/20/2009 Inguinal hernia without ment ion of obstruction or gangrene, unilateral or unspecified, (not specified as recurrent) 10/11/2008 11/07/2016 Umbilical hernia without mention of obstruction or gangrene 10/11/2008 11/07/2016 Unspecified disorder of prostate 06/21/2007 09/06/2014 Ganglion of tendon sheath 03/19/20072016 HYPERTENSION NOS 09/02/2006 03/29/2014 Last Assessment & Plan: HTN: Mr. Vazquez indicates that he is feeling well and denies any symptoms referable to elevated blood pressure. Specifically denies headache, chest pain, palpitations and dyspnea. Patient denies any side effects of his medication(s) and is compliant with their regimen. 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 Tye denies regular aerobic exercise. He watches his diet for sodium, low fat and low cholesterol some of the time. Last 3 Encounter BP Readings: Date: BP: 05/09/2011 148/86- just took BP meds this am 02/22/2011 140/98 02/15/2011 118/70 Dermatophytosis of foot 11/27/2005 06/14/20 17 documented as of this encounter (statuses as of 01/12/2022) [facility] History of Past illness Narrative* Problem Noted Date Resolved Date Acute postoperative pain 09/20/2020 021 Leucocytosis 09/25/2019 11/19/2019 Last Assessment & Plan: Resolved was Likely reactive No fever, no signs of infection Anemia 09/24/2019 11/19/2019 Last Assessment & Plan: hgb stable Slight drop in hemoglobin after the procedure Secondary to intra op blood loss Acute respiratory failure with hypoxia 9 11/19/2019 Last Assessment & Plan: Was requiring 4 lt of oxygen On room air now Chest x ray was clear Was likely atelectasis Continue incentive spirometry Traumatic complete tear of left rotator cuff 11/19/2019 Overview: [facility]. Inguinal hernia 01/20/2018 06/20/2018 Overview: Added automatically from request for surgery [id number] Clostridium difficile colitis 05/14/2017 Right-sided low back pain with right-sided sciat ica 10/03/2015 05/15/2016 Rotator cuff impingement syndrome of right shoul leonie 04/10/2015 11/19/2019 Medicare annual wellness visit, subsequent 04/1006/20/2018 Inguinal neuralgia 03/12/2013 11/07/2016 Diarrhea 12/05/2010 09/06/2014 Frequency of urination 10/02/2010 7 Malignant neoplasm of prostate 02/07/2010 0 11/07/2016 Overview: Dr. Littlejohn- oncologist at [facility] Rotator cuff (capsule) sprain 09/20/2009 Inguinal hernia without ment ion of obstruction or gangrene, unilateral or unspecified, (not specified as recurrent) 10/11/2008 11/07/2016 Umbilical hernia without mention of obstruction or gangrene 10/11/2008 11/07/2016 Unspecified disorder of prostate 06/21/2007 09/06/2014 Ganglion of tendon sheath 03/19/20072016 HYPERTENSION NOS 09/02/2006 03/29/2014 Last Assessment & Plan: HTN: Mr. Vazquez indicates that he is feeling well and denies any symptoms referable to elevated blood pressure. Specifically denies headache, chest pain, palpitations and dyspnea. Patient denies any side effects of his medication(s) and is compliant with their regimen. 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 Tye denies regular aerobic exercise. He watches his diet for sodium, low fat and low cholesterol some of the time. Last 3 Encounter BP Readings: Date: BP: 05/09/2011 148/86- just took BP meds this am 02/22/2011 140/98 02/15/2011 118/70 Dermatophytosis of foot 11/27/2005 06/14/20 17 documented as of this encounter (statuses as of 01/18/2022) [facility] History of Past illness Narrative* Problem Noted Date Resolved Date Acute postoperative pain 09/20/2020 021 Leucocytosis 09/25/2019 11/19/2019 Last Assessment & Plan: Resolved was Likely reactive No fever, no signs of infection Anemia 09/24/2019 11/19/2019 Last Assessment & Plan: hgb stable Slight drop in hemoglobin after the procedure Secondary to intra op blood loss Acute respiratory failure with hypoxia 9 11/19/2019 Last Assessment & Plan: Was requiring 4 lt of oxygen On room air now Chest x ray was clear Was likely atelectasis Continue incentive spirometry Traumatic complete tear of left rotator cuff 11/19/2019 Overview: [facility] Inguinal hernia 01/20/2018 06/20/2018 Overview: Added automatically from request for surgery [id number] Clostridium difficile colitis 05/14/2017 Right-sided low back pain with right-sided sciat ica 10/03/2015 05/15/2016 Rotator cuff impingement syndrome of right shoul leonie 04/10/2015 11/19/2019 Medicare annual wellness visit, subsequent 04/1006/20/2018 Inguinal neuralgia 03/12/2013 11/07/2016 Diarrhea 12/05/2010 09/06/2014 Frequency of urination 10/02/2010 7 Malignant neoplasm of prostate 02/07/2010 0 11/07/2016 Overview: Dr. Littlejohn- oncologist at [facility] Rotator cuff (capsule) sprain 09/20/2009 Inguinal hernia without ment ion of obstruction or gangrene, unilateral or unspecified, (not specified as recurrent) 10/11/2008 11/07/2016 Umbilical hernia without mention of obstruction or gangrene 10/11/2008 11/07/2016 Unspecified disorder of prostate 06/21/2007 09/06/2014 Ganglion of tendon sheath 03/19/20072016 HYPERTENSION NOS 09/02/2006 03/29/2014 Last Assessment & Plan: HTN: Mr. Vazquez indicates that he is feeling well and denies any symptoms referable to elevated blood pressure. Specifically denies headache, chest pain, palpitations and dyspnea. Patient denies any side effects of his medication(s) and is compliant with their regimen. 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 Tye denies regular aerobic exercise. He watches his diet for sodium, low fat and low cholesterol some of the time. Last 3 Encounter BP Readings: Date: BP: 05/09/2011 148/86- just took BP meds this am 02/22/2011 140/98 02/15/2011 118/70 Dermatophytosis of foot 11/27/2005 06/14/20 17 documented as of this encounter (statuses as of 02/05/2022) [facility] History of Past illness Narrative* Problem Noted Date Resolved Date Acute postoperative pain 09/20/2020 021 Leucocytosis 09/25/2019 11/19/2019 Last Assessment & Plan: Resolved was Likely reactive No fever, no signs of infection Anemia 09/24/2019 11/19/2019 Last Assessment & Plan: hgb stable Slight drop in hemoglobin after the procedure Secondary to intra op blood loss Acute respiratory failure with hypoxia 9 11/19/2019 Last Assessment & Plan: Was requiring 4 lt of oxygen On room air now Chest x ray was clear Was likely atelectasis Continue incentive spirometry Traumatic complete tear of left rotator cuff 11/19/2019 Overview: [facility] Inguinal hernia 01/20/2018 06/20/2018 Overview: Added automatically from request for surgery [id number] Clostridium difficile colitis 05/14/2017 Right-sided low back pain with right-sided sciat ica 10/03/2015 05/15/2016 Rotator cuff impingement syndrome of right shoul leonie 04/10/2015 11/19/2019 Medicare annual wellness visit, subsequent 04/1006/20/2018 Inguinal neuralgia 03/12/2013 11/07/2016 Diarrhea 12/05/2010 09/06/2014 Frequency of urination 10/02/2010 7 Malignant neoplasm of prostate 02/07/2010 0 11/07/2016 Overview: Dr. Littlejohn- oncologist at [facility] Rotator cuff (capsule) sprain 09/20/2009 Inguinal hernia without ment ion of obstruction or gangrene, unilateral or unspecified, (not specified as recurrent) 10/11/2008 11/07/2016 Umbilical hernia without mention of obstruction or gangrene 10/11/2008 11/07/2016 Unspecified disorder of prostate 06/21/2007 09/06/2014 Ganglion of tendon sheath 03/19/20072016 HYPERTENSION NOS 09/02/2006 03/29/2014 Last Assessment & Plan: HTN: Mr. Vazquez indicates that he is feeling well and denies any symptoms referable to elevated blood pressure. Specifically denies headache, chest pain, palpitations and dyspnea. Patient denies any side effects of his medication(s) and is compliant with their regimen. 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 Tye denies regular aerobic exercise. He watches his diet for sodium, low fat and low cholesterol some of the time. Last 3 Encounter BP Readings: Date: BP: 05/09/2011 148/86- just took BP meds this am 02/22/2011 140/98 02/15/2011 118/70 Dermatophytosis of foot 11/27/2005 06/14/20 17 documented as of this encounter (statuses as of 03/21/2022) [facility] of Past illness Narrative* Problem Noted Date Resolved Date Acute postoperative pain 09/20/2020 021 Leucocytosis 09/25/2019 11/19/2019 Last Assessment & Plan: Resolved was Likely reactive No fever, no signs of infection Anemia 09/24/2019 11/19/2019 Last Assessment & Plan: hgb stable Slight drop in hemoglobin after the procedure Secondary to intra op blood loss Acute respiratory failure with hypoxia 9 11/19/2019 Last Assessment & Plan: Was requiring 4 lt of oxygen On room air now Chest x ray was clear Was likely atelectasis Continue incentive spirometry Traumatic complete tear of left rotator cuff 11/19/2019 Overview: [facility] Inguinal hernia 01/20/2018 06/20/2018 Overview: Added automatically from request for surgery [id number] Clostridium difficile colitis 05/14/2017 Right-sided low back pain with right-sided sciat ica 10/03/2015 05/15/2016 Rotator cuff impingement syndrome of right shoul leonie 04/10/2015 11/19/2019 Medicare annual wellness visit, subsequent 04/1006/20/2018 Inguinal neuralgia 03/12/2013 11/07/2016 Diarrhea 12/05/2010 09/06/2014 Frequency of urination 10/02/2010 7 Malignant neoplasm of prostate 02/07/2010 0 11/07/2016 Overview: Dr. Littlejohn- oncologist at [facility] Rotator cuff (capsule) sprain 09/20/2009 Inguinal hernia without ment ion of obstruction or gangrene, unilateral or unspecified, (not specified as recurrent) 10/11/2008 11/07/2016 Umbilical hernia without mention of obstruction or gangrene 10/11/2008 11/07/2016 Unspecified disorder of prostate 06/21/2007 09/06/2014 Ganglion of tendon sheath 03/19/20072016 HYPERTENSION NOS 09/02/2006 03/29/2014 Last Assessment & Plan: HTN: Mr. Vazquez indicates that he is feeling well and denies any symptoms referable to elevated blood pressure. Specifically denies headache, chest pain, palpitations and dyspnea. Patient denies any side effects of his medication(s) and is compliant with their regimen. 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 Tye denies regular aerobic exercise. He watches his diet for sodium, low fat and low cholesterol some of the time. Last 3 Encounter BP Readings: Date: BP: 05/09/2011 148/86- just took BP meds this am 02/22/2011 140/98 02/15/2011 118/70 Dermatophytosis of foot 11/27/2005 06/14/20 17 documented as of this encounter (statuses as of 03/23/2022) [facility]12-08-2020 History of Past illness Narrative* Problem Noted Date Resolved Date Acute postoperative pain 09/20/2020 021 Leucocytosis 09/25/2019 11/19/2019 Last Assessment & Plan: Resolved was Likely reactive No fever, no signs of infection Anemia 09/24/2019 11/19/2019 Last Assessment & Plan: hgb stable Slight drop in hemoglobin after the procedure Secondary to intra op blood loss Acute respiratory failure with hypoxia 9 11/19/2019 Last Assessment & Plan: Was requiring 4 lt of oxygen On room air now Chest x ray was clear Was likely atelectasis Continue incentive spirometry Traumatic complete tear of left rotator cuff 11/19/2019 Overview: [facility] Inguinal hernia 01/20/2018 06/20/2018 Overview: Added automatically from request for surgery [id number] Clostridium difficile colitis 05/14/2017 Right-sided low back pain with right-sided sciat ica 10/03/2015 05/15/2016 Rotator cuff impingement syndrome of right shoul leonie 04/10/2015 11/19/2019 Medicare annual wellness visit, subsequent 04/1006/20/2018 Inguinal neuralgia 03/12/2013 11/07/2016 Diarrhea 12/05/2010 09/06/2014 Frequency of urination 10/02/2010 7 Malignant neoplasm of prostate 02/07/2010 0 11/07/2016 Overview: Dr. Littlejohn- oncologist at [facility] Rotator cuff (capsule) sprain 09/20/2009 Inguinal hernia without ment ion of obstruction or gangrene, unilateral or unspecified, (not specified as recurrent) 10/11/2008 11/07/2016 Umbilical hernia without mention of obstruction or gangrene 10/11/2008 11/07/2016 Unspecified disorder of prostate 06/21/2007 09/06/2014 Ganglion of tendon sheath 03/19/20072016 HYPERTENSION NOS 09/02/2006 03/29/2014 Last Assessment & Plan: HTN: Mr. Vazquez indicates that he is feeling well and denies any symptoms referable to elevated blood pressure. Specifically denies headache, chest pain, palpitations and dyspnea. Patient denies any side effects of his medication(s) and is compliant with their regimen. 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 Tye denies regular aerobic exercise. He watches his diet for sodium, low fat and low cholesterol some of the time. Last 3 Encounter BP Readings: Date: BP: 05/09/2011 148/86- just took BP meds this am 02/22/2011 140/98 02/15/2011 118/70 Dermatophytosis of foot 11/27/2005 06/14/20 17 documented as of this encounter (statuses as of 04/24/2022) [facility]12-08-2020 History of Past illness Narrative* Problem Noted Date Resolved Date Acute postoperative pain 09/20/2020 021 Leucocytosis 09/25/2019 11/19/2019 Last Assessment & Plan: Resolved was Likely reactive No fever, no signs of infection Anemia 09/24/2019 11/19/2019 Last Assessment & Plan: hgb stable Slight drop in hemoglobin after the procedure Secondary to intra op blood loss Acute respiratory failure with hypoxia 9 11/19/2019 Last Assessment & Plan: Was requiring 4 lt of oxygen On room air now Chest x ray was clear Was likely atelectasis Continue incentive spirometry Traumatic complete tear of left rotator cuff 11/19/2019 Overview: [facility] Inguinal hernia 01/20/2018 06/20/2018 Overview: Added automatically from request for surgery [id number] Clostridium difficile colitis 05/14/2017 Right-sided low back pain with right-sided sciat ica 10/03/2015 05/15/2016 Rotator cuff impingement syndrome of right shoul leonie 04/10/2015 11/19/2019 Medicare annual wellness visit, subsequent 04/1006/20/2018 Inguinal neuralgia 03/12/2013 11/07/2016 Diarrhea 12/05/2010 09/06/2014 Frequency of urination 10/02/2010 7 Malignant neoplasm of prostate 02/07/2010 0 11/07/2016 Overview: Dr. Littlejohn- oncologist at [facility] Rotator cuff (capsule) sprain 09/20/2009 Inguinal hernia without ment ion of obstruction or gangrene, unilateral or unspecified, (not specified as recurrent) 10/11/2008 11/07/2016 Umbilical hernia without mention of obstruction or gangrene 10/11/2008 11/07/2016 Unspecified disorder of prostate 06/21/2007 09/06/2014 Ganglion of tendon sheath 03/19/20072016 HYPERTENSION NOS 09/02/2006 03/29/2014 Last Assessment & Plan: HTN: Mr. Vazquez indicates that he is feeling well and denies any symptoms referable to elevated blood pressure. Specifically denies headache, chest pain, palpitations and dyspnea. Patient denies any side effects of his medication(s) and is compliant with their regimen. 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 Tye denies regular aerobic exercise. He watches his diet for sodium, low fat and low cholesterol some of the time. Last 3 Encounter BP Readings: Date: BP: 05/09/2011 148/86- just took BP meds this am 02/22/2011 140/98 02/15/2011 118/70 Dermatophytosis of foot 11/27/2005 06/14/20 17 documented as of this encounter (statuses as of 04/25/2022) [facility]12-08-2020 History of Past illness Narrative* Problem Noted Date Resolved Date Acute postoperative pain 09/20/2020 021 Leucocytosis 09/25/2019 11/19/2019 Last Assessment & Plan: Resolved was Likely reactive No fever, no signs of infection Anemia 09/24/2019 11/19/2019 Last Assessment & Plan: hgb stable Slight drop in hemoglobin after the procedure Secondary to intra op blood loss Acute respiratory failure with hypoxia 9 11/19/2019 Last Assessment & Plan: Was requiring 4 lt of oxygen On room air now Chest x ray was clear Was likely atelectasis Continue incentive spirometry Traumatic complete tear of left rotator cuff 11/19/2019 Overview: [facility] Inguinal hernia 01/20/2018 06/20/2018 Overview: Added automatically from request for surgery [id number] Clostridium difficile colitis 05/14/2017 Right-sided low back pain with right-sided sciat ica 10/03/2015 05/15/2016 Rotator cuff impingement syndrome of right shoul leonie 04/10/2015 11/19/2019 Medicare annual wellness visit, subsequent 04/1006/20/2018 Inguinal neuralgia 03/12/2013 11/07/2016 Diarrhea 12/05/2010 09/06/2014 Frequency of urination 10/02/2010 7 Malignant neoplasm of prostate 02/07/2010 0 11/07/2016 Overview: Dr. Littlejohn- oncologist at [facility] Rotator cuff (capsule) sprain 09/20/2009 Inguinal hernia without ment ion of obstruction or gangrene, unilateral or unspecified, (not specified as recurrent) 10/11/2008 11/07/2016 Umbilical hernia without mention of obstruction or gangrene 10/11/2008 11/07/2016 Unspecified disorder of prostate 06/21/2007 09/06/2014 Ganglion of tendon sheath 03/19/20072016 HYPERTENSION NOS 09/02/2006 03/29/2014 Last Assessment & Plan: HTN: Mr. Vazquez indicates that he is feeling well and denies any symptoms referable to elevated blood pressure. Specifically denies headache, chest pain, palpitations and dyspnea. Patient denies any side effects of his medication(s) and is compliant with their regimen. 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 Tye denies regular aerobic exercise. He watches his diet for sodium, low fat and low cholesterol some of the time. Last 3 Encounter BP Readings: Date: BP: 05/09/2011 148/86- just took BP meds this am 02/22/2011 140/98 02/15/2011 118/70 Dermatophytosis of foot 11/27/2005 06/14/20 17 documented as of this encounter (statuses as of 05/02/2022) [facility]12-08-2020 History of Past illness Narrative* Problem Noted Date Resolved Date Acute postoperative pain 09/20/2020 021 Leucocytosis 09/25/2019 11/19/2019 Last Assessment & Plan: Resolved was Likely reactive No fever, no signs of infection Anemia 09/24/2019 11/19/2019 Last Assessment & Plan: hgb stable Slight drop in hemoglobin after the procedure Secondary to intra op blood loss Acute respiratory failure with hypoxia 9 11/19/2019 Last Assessment & Plan: Was requiring 4 lt of oxygen On room air now Chest x ray was clear Was likely atelectasis Continue incentive spirometry Traumatic complete tear of left rotator cuff 11/19/2019 Overview: [facility] Inguinal hernia 01/20/2018 06/20/2018 Overview: Added automatically from request for surgery [id number] Clostridium difficile colitis 05/14/2017 Right-sided low back pain with right-sided sciat ica 10/03/2015 05/15/2016 Rotator cuff impingement syndrome of right shoul leonie 04/10/2015 11/19/2019 Medicare annual wellness visit, subsequent 04/1006/20/2018 Inguinal neuralgia 03/12/2013 11/07/2016 Diarrhea 12/05/2010 09/06/2014 Frequency of urination 10/02/2010 7 Malignant neoplasm of prostate 02/07/2010 0 11/07/2016 Overview: Dr. Littlejohn- oncologist at [facility] Rotator cuff (capsule) sprain 09/20/2009 Inguinal hernia without ment ion of obstruction or gangrene, unilateral or unspecified, (not specified as recurrent) 10/11/2008 11/07/2016 Umbilical hernia without mention of obstruction or gangrene 10/11/2008 11/07/2016 Unspecified disorder of prostate 06/21/2007 09/06/2014 Ganglion of tendon sheath 03/19/20072016 HYPERTENSION NOS 09/02/2006 03/29/2014 Last Assessment & Plan: HTN: Mr. Vazquez indicates that he is feeling well and denies any symptoms referable to elevated blood pressure. Specifically denies headache, chest pain, palpitations and dyspnea. Patient denies any side effects of his medication(s) and is compliant with their regimen. 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 Tye denies regular aerobic exercise. He watches his diet for sodium, low fat and low cholesterol some of the time. Last 3 Encounter BP Readings: Date: BP: 05/09/2011 148/86- just took BP meds this am 02/22/2011 140/98 02/15/2011 118/70 Dermatophytosis of foot 11/27/2005 06/14/20 17 documented as of this encounter (statuses as of 05/17/2022) [facility]12-08-2020 History of Past illness Narrative* Problem Noted Date Resolved Date Acute postoperative pain 09/20/2020 021 Leucocytosis 09/25/2019 11/19/2019 Last Assessment & Plan: Resolved was Likely reactive No fever, no signs of infection Anemia 09/24/2019 11/19/2019 Last Assessment & Plan: hgb stable Slight drop in hemoglobin after the procedure Secondary to intra op blood loss Acute respiratory failure with hypoxia 9 11/19/2019 Last Assessment & Plan: Was requiring 4 lt of oxygen On room air now Chest x ray was clear Was likely atelectasis Continue incentive spirometry Traumatic complete tear of left rotator cuff 11/19/2019 Overview: [facility] Inguinal hernia 01/20/2018 06/20/2018 Overview: Added automatically from request for surgery [id number] Clostridium difficile colitis 05/14/2017 Right-sided low back pain with right-sided sciat ica 10/03/2015 05/15/2016 Rotator cuff impingement syndrome of right shoul leonie 04/10/2015 11/19/2019 Medicare annual wellness visit, subsequent 04/1006/20/2018 Inguinal neuralgia 03/12/2013 11/07/2016 Diarrhea 12/05/2010 09/06/2014 Frequency of urination 10/02/2010 7 Malignant neoplasm of prostate 02/07/2010 0 11/07/2016 Overview: Dr. Littlejohn- oncologist at [facility] Rotator cuff (capsule) sprain 09/20/2009 Inguinal hernia without ment ion of obstruction or gangrene, unilateral or unspecified, (not specified as recurrent) 10/11/2008 11/07/2016 Umbilical hernia without mention of obstruction or gangrene 10/11/2008 11/07/2016 Unspecified disorder of prostate 06/21/2007 09/06/2014 Ganglion of tendon sheath 03/19/20072016 HYPERTENSION NOS 09/02/2006 03/29/2014 Last Assessment & Plan: HTN: Mr. Vazquez indicates that he is feeling well and denies any symptoms referable to elevated blood pressure. Specifically denies headache, chest pain, palpitations and dyspnea. Patient denies any side effects of his medication(s) and is compliant with their regimen. 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 Tye denies regular aerobic exercise. He watches his diet for sodium, low fat and low cholesterol some of the time. Last 3 Encounter BP Readings: Date: BP: 05/09/2011 148/86- just took BP meds this am 02/22/2011 140/98 02/15/2011 118/70 Dermatophytosis of foot 11/27/2005 06/14/20 17 documented as of this encounter (statuses as of 06/15/2022) [facility]2020 History of Past illness Narrative* Problem Noted Date Resolved Date Acute postoperative pain 09/20/2020 021 Leucocytosis 09/25/2019 11/19/2019 Last Assessment & Plan: Resolved was Likely reactive No fever, no signs of infection Anemia 09/24/2019 11/19/2019 Last Assessment & Plan: hgb stable Slight drop in hemoglobin after the procedure Secondary to intra op blood loss Acute respiratory failure with hypoxia 9 11/19/2019 Last Assessment & Plan: Was requiring 4 lt of oxygen On room air now Chest x ray was clear Was likely atelectasis Continue incentive spirometry Traumatic complete tear of left rotator cuff 11/19/2019 Overview: [facility] Inguinal hernia 01/20/2018 06/20/2018 Overview: Added automatically from request for surgery [id number] Clostridium difficile colitis 05/14/2017 Right-sided low back pain with right-sided sciat ica 10/03/2015 05/15/2016 Rotator cuff impingement syndrome of right shoul leonie 04/10/2015 11/19/2019 Medicare annual wellness visit, subsequent 04/1006/20/2018 Inguinal neuralgia 03/12/2013 11/07/2016 Diarrhea 12/05/2010 09/06/2014 Frequency of urination 10/02/2010 7 Malignant neoplasm of prostate 02/07/2010 0 11/07/2016 Overview: Dr. Littlejohn- oncologist at [facility] Rotator cuff (capsule) sprain 09/20/2009 Inguinal hernia without ment ion of obstruction or gangrene, unilateral or unspecified, (not specified as recurrent) 10/11/2008 11/07/2016 Umbilical hernia without mention of obstruction or gangrene 10/11/2008 11/07/2016 Unspecified disorder of prostate 06/21/2007 09/06/2014 Ganglion of tendon sheath 03/19/20072016 HYPERTENSION NOS 09/02/2006 03/29/2014 Last Assessment & Plan: HTN: Mr. Vazquez indicates that he is feeling well and denies any symptoms referable to elevated blood pressure. Specifically denies headache, chest pain, palpitations and dyspnea. Patient denies any side effects of his medication(s) and is compliant with their regimen. 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 Tye denies regular aerobic exercise. He watches his diet for sodium, low fat and low cholesterol some of the time. Last 3 Encounter BP Readings: Date: BP: 05/09/2011 148/86- just took BP meds this am 02/22/2011 140/98 02/15/2011 118/70 Dermatophytosis of foot 11/27/2005 06/14/20 17 documented as of this encounter (statuses as of 07/04/2022) [facility]12-[facility]2020 History of Past illness Narrative* Problem Noted Date Resolved Date Acute postoperative pain 09/20/2020 021 Leucocytosis 09/25/2019 11/19/2019 Last Assessment & Plan: Resolved was Likely reactive No fever, no signs of infection Anemia 09/24/2019 11/19/2019 Last Assessment & Plan: hgb stable Slight drop in hemoglobin after the procedure Secondary to intra op blood loss Acute respiratory failure with hypoxia 9 11/19/2019 Last Assessment & Plan: Was requiring 4 lt of oxygen On room air now Chest x ray was clear Was likely atelectasis Continue incentive spirometry Traumatic complete tear of left rotator cuff 11/19/2019 Overview: [facility] Inguinal hernia 01/20/2018 06/20/2018 Overview: Added automatically from request for surgery [id number] Clostridium difficile colitis 05/14/2017 Right-sided low back pain with right-sided sciat ica 10/03/2015 05/15/2016 Rotator cuff impingement syndrome of right shoul leonie 04/10/2015 11/19/2019 Medicare annual wellness visit, subsequent 04/1006/20/2018 Inguinal neuralgia 03/12/2013 11/07/2016 Diarrhea 12/05/2010 09/06/2014 Frequency of urination 10/02/2010 7 Malignant neoplasm of prostate 02/07/2010 0 11/07/2016 Overview: Dr. Littlejohn- oncologist at [facility] Rotator cuff (capsule) sprain 09/20/2009 Inguinal hernia without ment ion of obstruction or gangrene, unilateral or unspecified, (not specified as recurrent) 10/11/2008 11/07/2016 Umbilical hernia without mention of obstruction or gangrene 10/11/2008 11/07/2016 Unspecified disorder of prostate 06/21/2007 09/06/2014 Ganglion of tendon sheath 03/19/20072016 HYPERTENSION NOS 09/02/2006 03/29/2014 Last Assessment & Plan: HTN: Mr. Vazquez indicates that he is feeling well and denies any symptoms referable to elevated blood pressure. Specifically denies headache, chest pain, palpitations and dyspnea. Patient denies any side effects of his medication(s) and is compliant with their regimen. 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 Tye denies regular aerobic exercise. He watches his diet for sodium, low fat and low cholesterol some of the time. Last 3 Encounter BP Readings: Date: BP: 05/09/2011 148/86- just took BP meds this am 02/22/2011 140/98 02/15/2011 118/70 Dermatophytosis of foot 11/27/2005 06/14/20 17 documented as of this encounter (statuses as of 07/27/2022) [facility] History of Past illness Narrative* Problem Noted Date Resolved Date Acute postoperative pain 09/20/2020 021 Leucocytosis 09/25/2019 11/19/2019 Last Assessment & Plan: Resolved was Likely reactive No fever, no signs of infection Anemia 09/24/2019 11/19/2019 Last Assessment & Plan: hgb stable Slight drop in hemoglobin after the procedure Secondary to intra op blood loss Acute respiratory failure with hypoxia 9 11/19/2019 Last Assessment & Plan: Was requiring 4 lt of oxygen On room air now Chest x ray was clear Was likely atelectasis Continue incentive spirometry Traumatic complete tear of left rotator cuff 11/19/2019 Overview: [facility] Inguinal hernia 01/20/2018 06/20/2018 Overview: Added automatically from request for surgery [id number] Clostridium difficile colitis 05/14/2017 Right-sided low back pain with right-sided sciat ica 10/03/2015 05/15/2016 Rotator cuff impingement syndrome of right shoul leonie 04/10/2015 11/19/2019 Medicare annual wellness visit, subsequent 04/1006/20/2018 Inguinal neuralgia 03/12/2013 11/07/2016 Diarrhea 12/05/2010 09/06/2014 Frequency of urination 10/02/2010 7 Malignant neoplasm of prostate 02/07/2010 0 11/07/2016 Overview: Dr. Littlejohn- oncologist at [facility] Rotator cuff (capsule) sprain 09/20/2009 Inguinal hernia without ment ion of obstruction or gangrene, unilateral or unspecified, (not specified as recurrent) 10/11/2008 11/07/2016 Umbilical hernia without mention of obstruction or gangrene 10/11/2008 11/07/2016 Unspecified disorder of prostate 06/21/2007 09/06/2014 Ganglion of tendon sheath 03/19/20072016 HYPERTENSION NOS 09/02/2006 03/29/2014 Last Assessment & Plan: HTN: Mr. Vazquez indicates that he is feeling well and denies any symptoms referable to elevated blood pressure. Specifically denies headache, chest pain, palpitations and dyspnea. Patient denies any side effects of his medication(s) and is compliant with their regimen. 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 Tye denies regular aerobic exercise. He watches his diet for sodium, low fat and low cholesterol some of the time. Last 3 Encounter BP Readings: Date: BP: 05/09/2011 148/86- just took BP meds this am 02/22/2011 140/98 02/15/2011 118/70 Dermatophytosis of foot 11/27/2005 06/14/20 17 documented as of this encounter (statuses as of 10/01/2022) [facility] History of Past illness Narrative* Problem Noted Date Resolved Date Acute postoperative pain 09/20/2020 021 Leucocytosis 09/25/2019 11/19/2019 Last Assessment & Plan: Resolved was Likely reactive No fever, no signs of infection Anemia 09/24/2019 11/19/2019 Last Assessment & Plan: hgb stable Slight drop in hemoglobin after the procedure Secondary to intra op blood loss Acute respiratory failure with hypoxia 9 11/19/2019 Last Assessment & Plan: Was requiring 4 lt of oxygen On room air now Chest x ray was clear Was likely atelectasis Continue incentive spirometry Traumatic complete tear of left rotator cuff 11/19/2019 Overview: [facility] Inguinal hernia 01/20/2018 06/20/2018 Overview: Added automatically from request for surgery [id number] Clostridium difficile colitis 05/14/2017 Right-sided low back pain with right-sided sciat ica 10/03/2015 05/15/2016 Rotator cuff impingement syndrome of right shoul leonie 04/10/2015 11/19/2019 Medicare annual wellness visit, subsequent 04/1006/20/2018 Inguinal neuralgia 03/12/2013 11/07/2016 Diarrhea 12/05/2010 09/06/2014 Frequency of urination 10/02/2010 7 Malignant neoplasm of prostate 02/07/2010 0 11/07/2016 Overview: Dr. Littlejohn- oncologist at [facility] Rotator cuff (capsule) sprain 09/20/2009 Inguinal hernia without ment ion of obstruction or gangrene, unilateral or unspecified, (not specified as recurrent) 10/11/2008 11/07/2016 Umbilical hernia without mention of obstruction or gangrene 10/11/2008 11/07/2016 Unspecified disorder of prostate 06/21/2007 09/06/2014 Ganglion of tendon sheath 03/19/20072016 HYPERTENSION NOS 09/02/2006 03/29/2014 Last Assessment & Plan: HTN: Mr. Vazquez indicates that he is feeling well and denies any symptoms referable to elevated blood pressure. Specifically denies headache, chest pain, palpitations and dyspnea. Patient denies any side effects of his medication(s) and is compliant with their regimen. 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 Tye denies regular aerobic exercise. He watches his diet for sodium, low fat and low cholesterol some of the time. Last 3 Encounter BP Readings: Date: BP: 05/09/2011 148/86- just took BP meds this am 02/22/2011 140/98 02/15/2011 118/70 Dermatophytosis of foot 11/27/2005 06/14/20 17 documented as of this encounter (statuses as of 10/03/2022) [facility] History of Past illness Narrative* Problem Noted Date Resolved Date Acute postoperative pain 09/20/2020 021 Leucocytosis 09/25/2019 11/19/2019 Last Assessment & Plan: Resolved was Likely reactive No fever, no signs of infection Anemia 09/24/2019 11/19/2019 Last Assessment & Plan: hgb stable Slight drop in hemoglobin after the procedure Secondary to intra op blood loss Acute respiratory failure with hypoxia 9 11/19/2019 Last Assessment & Plan: Was requiring 4 lt of oxygen On room air now Chest x ray was clear Was likely atelectasis Continue incentive spirometry Traumatic complete tear of left rotator cuff 11/19/2019 Overview: [facility] Inguinal hernia 01/20/2018 06/20/2018 Overview: Added automatically from request for surgery [id number] Clostridium difficile colitis 05/14/2017 Right-sided low back pain with right-sided sciat ica 10/03/2015 05/15/2016 Rotator cuff impingement syndrome of right shoul leonie 04/10/2015 11/19/2019 Medicare annual wellness visit, subsequent 04/1006/20/2018 Inguinal neuralgia 03/12/2013 11/07/2016 Diarrhea 12/05/2010 09/06/2014 Frequency of urination 10/02/2010 7 Malignant neoplasm of prostate 02/07/2010 0 11/07/2016 Overview: Dr. Littlejohn- oncologist at [facility] Rotator cuff (capsule) sprain 09/20/2009 Inguinal hernia without ment ion of obstruction or gangrene, unilateral or unspecified, (not specified as recurrent) 10/11/2008 11/07/2016 Umbilical hernia without mention of obstruction or gangrene 10/11/2008 11/07/2016 Unspecified disorder of prostate 06/21/2007 09/06/2014 Ganglion of tendon sheath 03/19/20072016 HYPERTENSION NOS 09/02/2006 03/29/2014 Last Assessment & Plan: HTN: Mr. Vazquez indicates that he is feeling well and denies any symptoms referable to elevated blood pressure. Specifically denies headache, chest pain, palpitations and dyspnea. Patient denies any side effects of his medication(s) and is compliant with their regimen. 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 Tye denies regular aerobic exercise. He watches his diet for sodium, low fat and low cholesterol some of the time. Last 3 Encounter BP Readings: Date: BP: 05/09/2011 148/86- just took BP meds this am 02/22/2011 140/98 02/15/2011 118/70 Dermatophytosis of foot 11/27/2005 06/14/20 17 documented as of this encounter (statuses as of 10/07/2022) [facility]12-08-2020 History of Past illness Narrative* Problem Noted Date Resolved Date Acute postoperative pain 09/20/2020 021 Leucocytosis 09/25/2019 11/19/2019 Last Assessment & Plan: Resolved was Likely reactive No fever, no signs of infection Anemia 09/24/2019 11/19/2019 Last Assessment & Plan: hgb stable Slight drop in hemoglobin after the procedure Secondary to intra op blood loss Acute respiratory failure with hypoxia 9 11/19/2019 Last Assessment & Plan: Was requiring 4 lt of oxygen On room air now Chest x ray was clear Was likely atelectasis Continue incentive spirometry Traumatic complete tear of left rotator cuff 11/19/2019 Overview: [facility] Inguinal hernia 01/20/2018 06/20/2018 Overview: Added automatically from request for surgery [id number] Clostridium difficile colitis 05/14/2017 Right-sided low back pain with right-sided sciat ica 10/03/2015 05/15/2016 Rotator cuff impingement syndrome of right shoul leonie 04/10/2015 11/19/2019 Medicare annual wellness visit, subsequent 04/1006/20/2018 Inguinal neuralgia 03/12/2013 11/07/2016 Diarrhea 12/05/2010 09/06/2014 Frequency of urination 10/02/2010 7 Malignant neoplasm of prostate 02/07/2010 0 11/07/2016 Overview: Dr. Littlejohn- oncologist at [facility] Rotator cuff (capsule) sprain 09/20/2009 Inguinal hernia without ment ion of obstruction or gangrene, unilateral or unspecified, (not specified as recurrent) 10/11/2008 11/07/2016 Umbilical hernia without mention of obstruction or gangrene 10/11/2008 11/07/2016 Unspecified disorder of prostate 06/21/2007 09/06/2014 Ganglion of tendon sheath 03/19/20072016 HYPERTENSION NOS 09/02/2006 03/29/2014 Last Assessment & Plan: HTN: Mr. Vazquez indicates that he is feeling well and denies any symptoms referable to elevated blood pressure. Specifically denies headache, chest pain, palpitations and dyspnea. Patient denies any side effects of his medication(s) and is compliant with their regimen. 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 Tye denies regular aerobic exercise. He watches his diet for sodium, low fat and low cholesterol some of the time. Last 3 Encounter BP Readings: Date: BP: 05/09/2011 148/86- just took BP meds this am 02/22/2011 140/98 02/15/2011 118/70 Dermatophytosis of foot 11/27/2005 06/14/20 17 documented as of this encounter (statuses as of 10/18/2022) [facility]12-08-2020 History of Past illness Narrative* Problem Noted Date Resolved Date Acute postoperative pain 09/20/2020 021 Leucocytosis 09/25/2019 11/19/2019 Last Assessment & Plan: Resolved was Likely reactive No fever, no signs of infection Anemia 09/24/2019 11/19/2019 Last Assessment & Plan: hgb stable Slight drop in hemoglobin after the procedure Secondary to intra op blood loss Acute respiratory failure with hypoxia 9 11/19/2019 Last Assessment & Plan: Was requiring 4 lt of oxygen On room air now Chest x ray was clear Was likely atelectasis Continue incentive spirometry Traumatic complete tear of left rotator cuff 11/19/2019 Overview: [facility] Inguinal hernia 01/20/2018 06/20/2018 Overview: Added automatically from request for surgery [id number] Clostridium difficile colitis 05/14/2017 Right-sided low back pain with right-sided sciat ica 10/03/2015 05/15/2016 Rotator cuff impingement syndrome of right shoul leonie 04/10/2015 11/19/2019 Medicare annual wellness visit, subsequent 04/1006/20/2018 Inguinal neuralgia 03/12/2013 11/07/2016 Diarrhea 12/05/2010 09/06/2014 Frequency of urination 10/02/2010 7 Malignant neoplasm of prostate 02/07/2010 0 11/07/2016 Overview: Dr. Littlejohn- oncologist at [facility] Rotator cuff (capsule) sprain 09/20/2009 Inguinal hernia without ment ion of obstruction or gangrene, unilateral or unspecified, (not specified as recurrent) 10/11/2008 11/07/2016 Umbilical hernia without mention of obstruction or gangrene 10/11/2008 11/07/2016 Unspecified disorder of prostate 06/21/2007 09/06/2014 Ganglion of tendon sheath 03/19/20072016 HYPERTENSION NOS 09/02/2006 03/29/2014 Last Assessment & Plan: HTN: Mr. Vazquez indicates that he is feeling well and denies any symptoms referable to elevated blood pressure. Specifically denies headache, chest pain, palpitations and dyspnea. Patient denies any side effects of his medication(s) and is compliant with their regimen. 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 Tye denies regular aerobic exercise. He watches his diet for sodium, low fat and low cholesterol some of the time. Last 3 Encounter BP Readings: Date: BP: 05/09/2011 148/86- just took BP meds this am 02/22/2011 140/98 02/15/2011 118/70 Dermatophytosis of foot 11/27/2005 06/14/20 17 documented as of this encounter (statuses as of 10/20/2022) [facility] History of Past illness Narrative* Problem Noted Date Resolved Date Acute postoperative pain 09/20/2020 021 Leucocytosis 09/25/2019 11/19/2019 Last Assessment & Plan: Resolved was Likely reactive No fever, no signs of infection Anemia 09/24/2019 11/19/2019 Last Assessment & Plan: hgb stable Slight drop in hemoglobin after the procedure Secondary to intra op blood loss Acute respiratory failure with hypoxia 9 11/19/2019 Last Assessment & Plan: Was requiring 4 lt of oxygen On room air now Chest x ray was clear Was likely atelectasis Continue incentive spirometry Traumatic complete tear of left rotator cuff 11/19/2019 Overview: [facility] Inguinal hernia 01/20/2018 06/20/2018 Overview: Added automatically from request for surgery [id number] Clostridium difficile colitis 05/14/2017 Right-sided low back pain with right-sided sciat ica 10/03/2015 05/15/2016 Rotator cuff impingement syndrome of right shoul leonie 04/10/2015 11/19/2019 Medicare annual wellness visit, subsequent 04/1006/20/2018 Inguinal neuralgia 03/12/2013 11/07/2016 Diarrhea 12/05/2010 09/06/2014 Frequency of urination 10/02/2010 7 Malignant neoplasm of prostate 02/07/2010 0 11/07/2016 Overview: Dr. Littlejohn- oncologist at [facility] Rotator cuff (capsule) sprain 09/20/2009 Inguinal hernia without ment ion of obstruction or gangrene, unilateral or unspecified, (not specified as recurrent) 10/11/2008 11/07/2016 Umbilical hernia without mention of obstruction or gangrene 10/11/2008 11/07/2016 Unspecified disorder of prostate 06/21/2007 09/06/2014 Ganglion of tendon sheath 03/19/20072016 HYPERTENSION NOS 09/02/2006 03/29/2014 Last Assessment & Plan: HTN: Mr. Vazquez indicates that he is feeling well and denies any symptoms referable to elevated blood pressure. Specifically denies headache, chest pain, palpitations and dyspnea. Patient denies any side effects of his medication(s) and is compliant with their regimen. 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 Tye denies regular aerobic exercise. He watches his diet for sodium, low fat and low cholesterol some of the time. Last 3 Encounter BP Readings: Date: BP: 05/09/2011 148/86- just took BP meds this am 02/22/2011 140/98 02/15/2011 118/70 Dermatophytosis of foot 11/27/2005 06/14/20 17 documented as of this encounter (statuses as of 11/01/2022) [facility] Essential hypertension Unspecified essential hypertension [facility] Diagnosis Essential hypertension Unspecified essential hypertension DDD (degenerative disc disease), lumbar Degeneration of lumbar or lumbosacral intervertebral disc [facility] Diagnosis Essential hypertension Unspecified essential hypertension [facility] Diagnosis Colitis- Primary Other and unspecified noninfectious gastroenteritis and colitis Essential hypertension Unspecified essential hypertension Constipation, unspecified constipation type [facility]* Diagnosis Mixed hyperlipidemia Gastroesophageal reflux disease, unspecified whether esophagitis present [facility]* Diagnosis Abnormal CT scan, colon- Primary Nonspecific (abnormal) findings on radiological and other examination of gastrointestinal tract Gastroesophageal reflux disease, unspecified whether esophagitis present [facility]* Diagnosis DDD (degenerative disc disease), lumbar Degeneration of lumbar or lumbosacral intervertebral disc [facility]* Diagnosis Essential hypertension- Primary Unspecified essential hypertension Peripheral polyneuropathy Unspecified hereditary and idiopathic peripheral neuropathy [facility]* Diagnosis Rash- Primary Rash and other nonspecific skin eruption [facility]* Diagnosis Viral illness- Primary Unspecified viral infection, in conditions classified elsewhere and of unspecified site [facility]* Diagnosis Bilateral calf pain- Primary Pain in limb Skin lesion of right lower extremity Essential hypertension Unspecified essential hypertension Mixed hyperlipidemia [facility]* Diagnosis Bilateral lower extremity pain- Primary Pain in [facility] Diagnosis Idiopathic peripheral neuropathy- Primary Unspecified hereditary and idiopathic peripheral neuropathy 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) Atherosclerosis of benton arteries of the extremities with intermittent claudication Psoriasis Other psoriasis [facility]* Diagnosis Medicare annual wellness visit, subsequent- Primary Routine general medical examination at a health care facility Idiopathic peripheral neuropathy Unspecified hereditary and idiopathic peripheral neuropathy Essential hypertension Unspecified essential hypertension PAD (peripheral artery disease) (HCC) Peripheral vascular disease, unspecified Mixed hyperlipidemia Tobacco use disorder Need for influenza vaccination Need for prophylactic vaccination and inoculation against influenza [facility]* Diagnosis DDD (degenerative disc disease), lumbar Degeneration of lumbar or lumbosacral intervertebral disc Essential hypertension Unspecified essential hypertension Gastroesophageal reflux disease, unspecified whether esophagitis present [facility] Diagnosis Idiopathic peripheral neuropathy- Primary Unspecified hereditary and idiopathic peripheral neuropathy Essential hypertension Unspecified essential hypertension [facility] Diagnosis Herpes zoster without complications- Primary Herpes zoster without mention of complication [facility] Diagnosis Essential hypertension- Primary Unspecified essential hypertension Herpes zoster without complication Herpes zoster without mention of complication [facility]* Diagnosis Gastroesophageal reflux disease, unspecified whether esophagitis present [facility] Diagnosis Essential hypertension Unspecified essential hypertension [facility] Diagnosis Essential hypertension- Primary Unspecified essential hypertension Short of breath on exertion Shortness of breath Rash Rash and other nonspecific skin eruption Tobacco use disorder Urinary incontinence, unspecified type History of prostate cancer Personal history of malignant neoplasm of prostate [facility] Diagnosis Short of breath on exertion Shortness of breath Tobacco use disorder [facility] Diagnosis Short of breath on exertion Shortness of breath Tobacco use disorder [facility] Diagnosis Short of breath on exertion- Primary Shortness of breath Tobacco use disorder Abnormal lung function test Nonspecific abnormal results of pulmonary system function study [facility]* Diagnosis Pulmonary emphysema, unspecified emphysema type (HCC)- Primary Cigarette smoker Tobacco use disorder [facility] Diagnosis Centrilobular emphysema (HCC)- Primary Other emphysema [facility]* Diagnosis Essential hypertension- Primary Unspecified essential hypertension Mixed hyperlipidemia [facility]* Diagnosis Chronic respiratory failure with hypoxia (HCC)- Primary Chronic respiratory failure Idiopathic peripheral neuropathy Unspecified hereditary and idiopathic peripheral neuropathy Essential hypertension Unspecified essential hypertension Chronic obstructive pulmonary disease, unspecified COPD type (HCC) [facility] Diagnosis Essential hypertension- Primary Unspecified essential hypertension Urinary incontinence, unspecified type Prostate cancer (HCC) Malignant neoplasm of prostate [facility]* Diagnosis Essential hypertension- Primary Unspecified essential hypertension DDD (degenerative disc disease), lumbar Degeneration of lumbar or lumbosacral intervertebral disc [facility]* Diagnosis Essential hypertension- Primary Unspecified essential hypertension [facility] Diagnosis Tobacco use disorder- Primary HYPERTENSION NOS Unspecified essential hypertension Mixed hyperlipidemia Adult acne Other acne PAD (peripheral artery disease) (HCC) Peripheral vascular disease, unspecified Esophageal reflux Mixed hyperlipidemia Other insomnia Pre-operative examination- Primary Preoperative examination, unspecified 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) Atherosclerosis of benton arteries of the extremities with intermittent claudication Mixed hyperlipidemia Essential hypertension Unspecified essential hypertension Tobacco use disorder Gastroesophageal reflux disease, esophagitis presence not specified Prostate cancer (HCC) Malignant neoplasm of prostate DDD (degenerative disc disease), lumbar Degeneration of lumbar or lumbosacral intervertebral disc SDH (subdural hematoma) (HCC)- Primary Subdural hemorrhage Peripheral polyneuropathy Unspecified hereditary and idiopathic peripheral neuropathy PAD (peripheral artery disease) (HCC) Peripheral vascular disease, unspecified Essential hypertension Unspecified essential hypertension Acute postoperative pain Other acute postoperative pain History of prostate cancer Personal history of malignant neoplasm of prostate Short of breath on exertion Shortness of breath Tobacco use disorder [facility] Diagnosis Tobacco use disorder- Primary HYPERTENSION NOS Unspecified essential hypertension Mixed hyperlipidemia Adult acne Other acne 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)- Primary Atherosclerosis of benton arteries of the extremities with intermittent claudication PAD (peripheral artery disease) (HCC) Peripheral vascular disease, unspecified Esophageal reflux Mixed hyperlipidemia Other insomnia Pre-operative examination- Primary Preoperative examination, unspecified 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) Atherosclerosis of benton arteries of the extremities with intermittent claudication Mixed hyperlipidemia Essential hypertension Unspecified essential hypertension Tobacco use disorder Gastroesophageal reflux disease, esophagitis presence not specified Prostate cancer (HCC) Malignant neoplasm of prostate DDD (degenerative disc disease), lumbar Degeneration of lumbar or lumbosacral intervertebral disc SDH (subdural hematoma) (HCC)- Primary Subdural hemorrhage Peripheral polyneuropathy Unspecified hereditary and idiopathic peripheral neuropathy SDH (subdural hematoma) (HCC) Subdural hemorrhage PAD (peripheral artery disease) (HCC) Peripheral vascular disease, unspecified Essential hypertension Unspecified essential hypertension Acute postoperative pain Other acute postoperative pain Essential hypertension Unspecified essential hypertension History of prostate cancer Personal history of malignant neoplasm of prostate Tobacco use disorder PAD (peripheral artery disease) (HCC) Peripheral vascular disease, unspecified History of Clostridium difficile colitis Personal history of other diseases of digestive system Localized swelling on left hand [facility] Diagnosis Tobacco use disorder- Primary HYPERTENSION NOS Unspecified essential hypertension Mixed hyperlipidemia Adult acne Other acne 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)- Primary Atherosclerosis of benton arteries of the extremities with intermittent claudication PAD (peripheral artery disease) (HCC) Peripheral vascular disease, unspecified Esophageal reflux Mixed hyperlipidemia Other insomnia Pre-operative examination- Primary Preoperative examination, unspecified 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) Atherosclerosis of benton arteries of the extremities with intermittent claudication Mixed hyperlipidemia Essential hypertension Unspecified essential hypertension Tobacco use disorder Gastroesophageal reflux disease, esophagitis presence not specified Prostate cancer (HCC) Malignant neoplasm of prostate DDD (degenerative disc disease), lumbar Degeneration of lumbar or lumbosacral intervertebral disc SDH (subdural hematoma) (HCC)- Primary Subdural hemorrhage Peripheral polyneuropathy Unspecified hereditary and idiopathic peripheral neuropathy SDH (subdural hematoma) (HCC) Subdural hemorrhage PAD (peripheral artery disease) (HCC) Peripheral vascular disease, unspecified Essential hypertension Unspecified essential hypertension Acute postoperative pain Other acute postoperative pain Essential hypertension Unspecified essential hypertension History of prostate cancer Personal history of malignant neoplasm of prostate Tobacco use disorder PAD (peripheral artery disease) (HCC) Peripheral vascular disease, unspecified History of Clostridium difficile colitis Personal history of other diseases of digestive system Cough [facility]* Diagnosis Tobacco use disorder- Primary HYPERTENSION NOS Unspecified essential hypertension Mixed hyperlipidemia Adult acne Other acne PAD (peripheral artery disease) (HCC) Peripheral vascular disease, unspecified Esophageal reflux Mixed hyperlipidemia Other insomnia Pre-operative examination- Primary Preoperative examination, unspecified 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) Atherosclerosis of benton arteries of the extremities with intermittent claudication Mixed hyperlipidemia Essential hypertension Unspecified essential hypertension Tobacco use disorder Gastroesophageal reflux disease, esophagitis presence not specified Prostate cancer (HCC) Malignant neoplasm of prostate DDD (degenerative disc disease), lumbar Degeneration of lumbar or lumbosacral intervertebral disc SDH (subdural hematoma) (HCC)- Primary Subdural hemorrhage Peripheral polyneuropathy Unspecified hereditary and idiopathic peripheral neuropathy PAD (peripheral artery disease) (HCC) Peripheral vascular disease, unspecified Essential hypertension Unspecified essential hypertension Acute postoperative pain Other acute postoperative pain History of prostate cancer Personal history of malignant neoplasm of prostate Medicare annual wellness visit, subsequent- Primary Routine general medical examination at a [facility] Screening for depression Encounter for screening examination for other mental health and behavioral disorders Mixed hyperlipidemia Tobacco use disorder Essential hypertension Unspecified essential hypertension Degeneration of intervertebral disc of lumbar region, unspecified whether pain present Chronic obstructive pulmonary disease, unspecified COPD type (HCC) Need for influenza vaccination Need for prophylactic vaccination and inoculation against influenza PAD (peripheral artery disease) (HCC) Peripheral vascular disease, unspecified [facility] Tobacco use disorder- Primary HYPERTENSION NOS Unspecified essential hypertension Mixed hyperlipidemia Adult acne Other acne 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)- Primary Atherosclerosis of benton arteries of the extremities with intermittent claudication PAD (peripheral artery disease) (HCC) Peripheral vascular disease, unspecified Esophageal reflux Mixed hyperlipidemia Other insomnia Pre-operative examination- Primary Preoperative examination, unspecified 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) Atherosclerosis of benton arteries of the extremities with intermittent claudication Mixed hyperlipidemia Essential hypertension Unspecified essential hypertension Tobacco use disorder Gastroesophageal reflux disease, esophagitis presence not specified Prostate cancer (HCC) Malignant neoplasm of prostate DDD (degenerative disc disease), lumbar Degeneration of lumbar or lumbosacral intervertebral disc SDH (subdural hematoma) (HCC)- Primary Subdural hemorrhage Peripheral polyneuropathy Unspecified hereditary and idiopathic peripheral neuropathy SDH (subdural hematoma) (HCC) Subdural hemorrhage PAD (peripheral artery disease) (HCC) Peripheral vascular disease, unspecified Essential hypertension Unspecified essential hypertension Acute postoperative pain Other acute postoperative pain Essential hypertension Unspecified essential hypertension History of prostate cancer Personal history of malignant neoplasm of prostate Tobacco use disorder PAD (peripheral artery disease) (HCC) Peripheral vascular disease, unspecified History of Clostridium difficile colitis Personal history of other diseases of digestive system Cough [facility] Tobacco use disorder- Primary HYPERTENSION NOS Unspecified essential hypertension Mixed hyperlipidemia Adult acne Other acne PAD (peripheral artery disease) (HCC) Peripheral vascular disease, unspecified Esophageal reflux Mixed hyperlipidemia Other insomnia Pre-operative examination- Primary Preoperative examination, unspecified 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) Atherosclerosis of benton arteries of the extremities with intermittent claudication Mixed hyperlipidemia Essential hypertension Unspecified essential hypertension Tobacco use disorder Gastroesophageal reflux disease, esophagitis presence not specified Prostate cancer (HCC) Malignant neoplasm of prostate DDD (degenerative disc disease), lumbar Degeneration of lumbar or lumbosacral intervertebral disc SDH (subdural hematoma) (HCC)- Primary Subdural hemorrhage Peripheral polyneuropathy Unspecified hereditary and idiopathic peripheral neuropathy PAD (peripheral artery disease) (HCC) Peripheral vascular disease, unspecified Essential hypertension Unspecified essential hypertension Acute postoperative pain Other acute postoperative pain History of prostate cancer Personal history of malignant neoplasm of prostate Diarrhea, unspecified type- Primary Dehydration documented in this encounter [facility] for referral (narrative)* Outpatient Procedure (Urgent) - Closed Specialty Diagnoses / Procedures Referred By Contac Referred To Contact [facility] Diagnoses Bilateral calf pain Procedures US LEG VEIN DVT [facility] DUP-SCAN XTR VEINS COMPLETE BILATERAL STUDY Precious Almeida APRN.CNP [address] [place] [address] [facility] [address] [place] [id number] Referral ID Status Reason Start Date Expiration Date V isits Requested Visits Authorized [id number] Closed Auto-Generate d Referral 10/16/2022 10/16/2023 1 1 LOTTE [facility] for referral (narrative)* Outpatient Procedure (Routine) - Authorized Specialty Diagnoses / Procedures Referred By Contac t Referred To Contact [facility] Diagnoses Pulmonary emphysema, unspecified emphysema type (HCC) Procedures OXIMETRY WITH AMBULATION NONINVASIVE EAR/PULSE OXIMETRY MULTIPLE Laverne Hendricks MD [address] [place] [address] [facility] [address] [place] [address] Referral ID Status Reason Start Date Expiration Date Visits Requested Visits Authorized [id number] Authorized Auto-Generat ed Referral 09/11/2024 1 1 [facility] for referral (narrative)* Diagnostic Procedure Only (Urgent) - Closed Specialty Diagnoses / Procedures Referred By Contac t Referred To Contact XR IMAGING Diagnoses Localized swelling on left hand Procedures XR HAND GENERAL 3V PA/LAT/OBL LEFT RADEX HAND MINIMUM 3 VIEWS Joan Hall APRN.[facility] [employer] [address] [place] [address] [place] [address] Referral ID Status Reason Start Date Expiration Date V isits Requested Visits Authorized [id number] Closed Auto-Generate d Referral 01/04/2022 02/03/2023 1 1 [facility] for visit Narrative* Diagnostic Procedure Only (Urgent) - Closed Specialty Diagnoses / Procedures Referred By Contac t Referred To Contact XR IMAGING Diagnoses Localized swelling on left hand Procedures XR HAND GENERAL 3V PA/LAT/OBL LEFT RADEX HAND MINIMUM 3 VIEWS Joan Hall APRN.[employer] [employer] [address] [place] [address] [place] [address] Referral ID Status Reason Start Date Expiration Date V isits Requested Visits Authorized [id number] Closed Auto-Generate d Referral 01/04/2022 02/03/2023 1 1 [facility] Summary Purpose Family History No Family History Records FoundNo Family History Records FoundNo Family History Records Found Advance Directives No Advanced Directives Records FoundDocuments on File Type Date Recorded Patient Plate Developer Expl anation Advance Directive(s) 09/15/2020 4:19 PM Advance Directive(s) 09/14/2020 4:36 PM Advance Directive(s) 09/12/2020 6:05 PM Advance Directive(s) 09/21/2019 8:14 AM Ga ve new forms for him to update Advance Directive(s) 09/17/2019 9:04 AM Advance Directive(s) 09/15/2019 8:32 AM Advance Directive(s) 11/19/2016 1:36 PM Advance Directive(s) 05/07/2016 7:39 AM Documents on File Type Date Recorded Patient Plate Developer Expl anation Advance Directive(s) 03/18/2022 1:52 AM Advance Directive(s) 09/15/2020 4:19 PM Advance Directive(s) 09/14/2020 4:36 PM Advance Directive(s) 09/12/2020 6:05 PM Advance Directive(s) 09/21/2019 8:14 AM Ga ve new forms for him to update Advance Directive(s) 09/17/2019 9:04 AM Advance Directive(s) 09/15/2019 8:32 AM Advance Directive(s) 11/19/2016 1:36 PM Advance Directive(s) 05/07/2016 7:39 AM Documents on File Type Date Recorded Patient Plate Developer Expl anation Advance Directive(s) 03/18/2022 1:52 AM Advance Directive(s) 09/15/2020 4:19 PM Advance Directive(s) 09/14/2020 4:36 PM Advance Directive(s) 09/12/2020 6:05 PM Advance Directive(s) 09/21/2019 8:14 AM Ga ve new forms for him to update Advance Directive(s) 09/17/2019 9:04 AM Advance Directive(s) 09/15/2019 8:32 AM Advance Directive(s) 11/19/2016 1:36 PM Advance Directive(s) 05/07/2016 7:39 AM Documents on File Type Date Recorded Patient Plate Developer Expl anation Advance Directive(s) 09/15/2020 4:19 PM Documents on File Type Date Recorded Patient Plate Developer Expl anation Advance Directive(s) 09/15/2020 4:19 PM Reason for Referral Specialty Diagnoses / Procedures Referred By Slime cook Referred To Contact Gastroenterology Diagnoses Colitis Procedures CONSULT TO GASTROENTEROLOGY OFFICE/OUTPATIENT NEW HIGH MDM 60-74 MINUTES Older, Precious, 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 [place] [address] Referral ID Status Reason Start Date Expiration Date Visits Requested Visits Authorized [id number] Pending Review PCP Requested Referral 03/23/2022 03/23/2023 1 1 Specialty Diagnoses / Procedures Referred By Contac t Referred To Contact Urology Diagnoses History of prostate cancer Urinary incontinence, unspecified type Procedures CONSULT TO UROLOGY OFFICE/OUTPATIENT NEW HIGH MDM 60-74 MINUTES Precious Almeida APRN.[employer] [employer] [address] [place] [address] Referral ID Status Reason Start Date Expiration Date Visits Requested Visits Authorized [id number] Pending Review PCP Requested Referral 07/19/2023 07/18/2024 1 1 Specialty Diagnoses / Procedures Referred By Contac t Referred To Contact [facility] Diagnoses Short of breath on exertion Tobacco use disorder Procedures LUNG DIFFUSION CAPACITY (DLCO) DIFFUSING CAPACITY Precious Almeida APRN.[employer] [address] [place] [address] [facility] [address] [place] [id number] Referral ID Status Reason Start Date Expiration Date Visits Requested Visits Authorized [id number] Pending Review Auto-Generat ed Referral 07/19/2023 08/17/2024 1 1 Specialty Diagnoses / Procedures Referred By Contac t Referred To Contact [facility] Diagnoses Short of breath on exertion Tobacco use disorder Procedures LUNG VOLUMES Precious Almeida APRN.[employer] [address] [place] [address] [facility] [address] [place] [id number] Referral ID Status Reason Start Date Expiration Date Visits Requested Visits Authorized [id number] Pending Review Auto-Generat ed Referral 07/19/2023 08/17/2024 1 1 Specialty Diagnoses / Procedures Referred By Contac t Referred To Contact [facility] Diagnoses Short of breath on exertion Tobacco use disorder Procedures SPIROMETRY - BASELINE AND POST DILATOR BRNCDILAT RSPSE SPMTRY PRE&POST-BRNCDILAT ADMN Precious Almeida APRN.[employer] [address] [place] [address] [facility] [address] [place] [address] Referral ID Status Reason Start Date Expiration Date Visits Requested Visits Authorized [id number] Pending Review Auto-Generat ed Referral 07/19/2023 08/17/2024 1 1 Specialty Diagnoses / Procedures Referred By Contac t Referred To Contact Nephrology Diagnoses Resistant hypertension Stage 3a chronic kidney disease (HCC) Procedures CONSULT TO NEPHROLOGY OFFICE/OUTPATIENT [facility] 60 MINUTES Precious Teixeira, 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 [address] [place] [address] Referral ID Status Reason Start Date Expiration Date Visits Requested Visits Authorized [id number] Authorized PCP Requested Referral 03/11/2024 03/11/2025 1 1 Specialty Diagnoses / Procedures Referred By Contac t Referred To Contact Gastroenterology Diagnoses Diarrhea, unspecified type Procedures CONSULT TO GASTROENTEROLOGY OFFICE/OUTPATIENT [facility] 60 MINUTES Precious Teixeira, 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 [address] [place] [address] Referral ID Status Reason Start Date Expiration Date Visits Requested Visits Authorized [id number] Authorized PCP Requested Referral 07/30/2025 1 1 Health Concerns Infection Onset Date Last Indicated Resolved Time COVID-19 Rule-Out 10/05/2022 10/05/2022 10/06/2022 3:44 AM EST Additional Source Comments (unrecognized sect ion and content) No Status Records FoundNo Status Records FoundNo Status Records Found INFORMATION SOURCE (unrecogn ized section and content) DATE CREATED AUTHOR 02/27/2020 [facility] DATE CREATED AUTHOR AUTHOR'S ORGANIZ ATION 07/29/2024 [facility] DATE CREATED AUTHOR AUTHOR'S ORGANIZ ATION 08/04/2024 [facility] Source Comments (unrecognize d section and content) In the event this informatio n is protected by the Federal Confidentiality of Alcohol and Drug Abuse Patient Records regulations: The Federal rules restrict any use of the information to criminally investigate or prosecute any alcohol or drug abuse patient.[facility] the event this information is protected by the Federal Confidentiality of Alcohol and Drug Abuse Patient Records regulations: The Federal rules restrict any use of the information to criminally investigate or prosecute any alcohol or drug abuse patient.[facility]In the event this information is protected by the Federal Confidentiality of Alcohol and Drug Abuse Patient Records regulations: The Federal rules restrict any use of the information to criminally investigate or prosecute any alcohol or drug abuse patient.[facility]In the event this information is protected by the Federal Confidentiality of Alcohol and Drug Abuse Patient Records regulations: The Federal rules restrict any use of the information to criminally investigate or prosecute any alcohol or drug abuse patient.[facility]In the event this information is protected by the Federal Confidentiality of Alcohol and Drug Abuse Patient Records regulations: The Federal rules restrict any use of the information to criminally investigate or prosecute any alcohol or drug abuse patient.[facility]In the event this information is protected by the Federal Confidentiality of Alcohol and Drug Abuse Patient Records regulations: The Federal rules restrict any use of the information to criminally investigate or prosecute any alcohol or drug abuse patient.[facility]In the event this information is protected by the Federal Confidentiality of Alcohol and Drug Abuse Patient Records regulations: The Federal rules restrict any use of the information to criminally investigate or prosecute any alcohol or drug abuse patient.[facility] HospitalIn the event this information is protected by the Federal Confidentiality of Alcohol and Drug Abuse Patient Records regulations: The Federal rules restrict any use of the information to criminally investigate or prosecute any alcohol or drug abuse patient.[facility]In the event this information is protected by the Federal Confidentiality of Alcohol and Drug Abuse Patient Records regulations: The Federal rules restrict any use of the information to criminally investigate or prosecute any alcohol or drug abuse patient.[facility] HospitalIn the event this information is protected by the Federal Confidentiality of Alcohol and Drug Abuse Patient Records regulations: The Federal rules restrict any use of the information to criminally investigate or prosecute any alcohol or drug abuse patient.[facility] HospitalIn the event this information is protected by the Federal Confidentiality of Alcohol and Drug Abuse Patient Records regulations: The Federal rules restrict any use of the information to criminally investigate or prosecute any alcohol or drug abuse patient.[facility] HospitalIn the event this information is protected by the Federal Confidentiality of Alcohol and Drug Abuse Patient Records regulations: The Federal rules restrict any use of the information to criminally investigate or prosecute any alcohol or drug abuse patient.[facility] HospitalIn the event this information is protected by the Federal Confidentiality of Alcohol and Drug Abuse Patient Records regulations: The Federal rules restrict any use of the information to criminally investigate or prosecute any alcohol or drug abuse patient.[facility] HospitalIn the event this information is protected by the Federal Confidentiality of Alcohol and Drug Abuse Patient Records regulations: The Federal rules restrict any use of the information to criminally investigate or prosecute any alcohol or drug abuse patient.[facility] HospitalIn the event this information is protected by the Federal Confidentiality of Alcohol and Drug Abuse Patient Records regulations: The Federal rules restrict any use of the information to criminally investigate or prosecute any alcohol or drug abuse patient.[facility] HospitalIn the event this information is protected by the Federal Confidentiality of Alcohol and Drug Abuse Patient Records regulations: The Federal rules restrict any use of the information to criminally investigate or prosecute any alcohol or drug abuse patient.[facility] HospitalIn the event this information is protected by the Federal Confidentiality of Alcohol and Drug Abuse Patient Records regulations: The Federal rules restrict any use of the information to criminally investigate or prosecute any alcohol or drug abuse patient.[facility] HospitalIn the event this information is protected by the Federal Confidentiality of Alcohol and Drug Abuse Patient Records regulations: The Federal rules restrict any use of the information to criminally investigate or prosecute any alcohol or drug abuse patient.[facility] HospitalIn the event this information is protected by the Federal Confidentiality of Alcohol and Drug Abuse Patient Records regulations: The Federal rules restrict any use of the information to criminally investigate or prosecute any alcohol or drug abuse patient.[facility] HospitalIn the event this information is protected by the Federal Confidentiality of Alcohol and Drug Abuse Patient Records regulations: The Federal rules restrict any use of the information to criminally investigate or prosecute any alcohol or drug abuse patient.[facility] HospitalIn the event this information is protected by the Federal Confidentiality of Alcohol and Drug Abuse Patient Records regulations: The Federal rules restrict any use of the information to criminally investigate or prosecute any alcohol or drug abuse patient.[facility] HospitalIn the event this information is protected by the Federal Confidentiality of Alcohol and Drug Abuse Patient Records regulations: The Federal rules restrict any use of the information to criminally investigate or prosecute any alcohol or drug abuse patient.[facility] HospitalIn the event this information is protected by the Federal Confidentiality of Alcohol and Drug Abuse Patient Records regulations: The Federal rules restrict any use of the information to criminally investigate or prosecute any alcohol or drug abuse patient.[facility] HospitalIn the event this information is protected by the Federal Confidentiality of Alcohol and Drug Abuse Patient Records regulations: The Federal rules restrict any use of the information to criminally investigate or prosecute any alcohol or drug abuse patient.[facility] HospitalIn the event this information is protected by the Federal Confidentiality of Alcohol and Drug Abuse Patient Records regulations: The Federal rules restrict any use of the information to criminally investigate or prosecute any alcohol or drug abuse patient.[facility] HospitalIn the event this information is protected by the Federal Confidentiality of Alcohol and Drug Abuse Patient Records regulations: The Federal rules restrict any use of the information to criminally investigate or prosecute any alcohol or drug abuse patient.[facility] HospitalIn the event this information is protected by the Federal Confidentiality of Alcohol and Drug Abuse Patient Records regulations: The Federal rules restrict any use of the information to criminally investigate or prosecute any alcohol or drug abuse patient.[facility] HospitalIn the event this information is protected by the Federal Confidentiality of Alcohol and Drug Abuse Patient Records regulations: The Federal rules restrict any use of the information to criminally investigate or prosecute any alcohol or drug abuse patient.[facility] HospitalIn the event this information is protected by the Federal Confidentiality of Alcohol and Drug Abuse Patient Records regulations: The Federal rules restrict any use of the information to criminally investigate or prosecute any alcohol or drug abuse patient.[facility] HospitalIn the event this information is protected by the Federal Confidentiality of Alcohol and Drug Abuse Patient Records regulations: The Federal rules restrict any use of the information to criminally investigate or prosecute any alcohol or drug abuse patient.[facility] HospitalIn the event this information is protected by the Federal Confidentiality of Alcohol and Drug Abuse Patient Records regulations: The Federal rules restrict any use of the information to criminally investigate or prosecute any alcohol or drug abuse patient.[facility] HospitalIn the event this information is protected by the Federal Confidentiality of Alcohol and Drug Abuse Patient Records regulations: The Federal rules restrict any use of the information to criminally investigate or prosecute any alcohol or drug abuse patient.[facility] HospitalIn the event this information is protected by the Federal Confidentiality of Alcohol and Drug Abuse Patient Records regulations: The Federal rules restrict any use of the information to criminally investigate or prosecute any alcohol or drug abuse patient.[facility] HospitalIn the event this information is protected by the Federal Confidentiality of Alcohol and Drug Abuse Patient Records regulations: The Federal rules restrict any use of the information to criminally investigate or prosecute any alcohol or drug abuse patient.[facility] HospitalIn the event this information is protected by the Federal Confidentiality of Alcohol and Drug Abuse Patient Records regulations: The Federal rules restrict any use of the information to criminally investigate or prosecute any alcohol or drug abuse patient.[facility] HospitalIn the event this information is protected by the Federal Confidentiality of Alcohol and Drug Abuse Patient Records regulations: The Federal rules restrict any use of the information to criminally investigate or prosecute any alcohol or drug abuse patient.[facility] HospitalIn the event this information is protected by the Federal Confidentiality of Alcohol and Drug Abuse Patient Records regulations: The Federal rules restrict any use of the information to criminally investigate or prosecute any alcohol or drug abuse patient.[facility] HospitalIn the event this information is protected by the Federal Confidentiality of Alcohol and Drug Abuse Patient Records regulations: The Federal rules restrict any use of the information to criminally investigate or prosecute any alcohol or drug abuse patient.[facility] HospitalIn the event this information is protected by the Federal Confidentiality of Alcohol and Drug Abuse Patient Records regulations: The Federal rules restrict any use of the information to criminally investigate or prosecute any alcohol or drug abuse patient.[facility] HospitalIn the event this information is protected by the Federal Confidentiality of Alcohol and Drug Abuse Patient Records regulations: The Federal rules restrict any use of the information to criminally investigate or prosecute any alcohol or drug abuse patient.[facility] HospitalIn the event this information is protected by the Federal Confidentiality of Alcohol and Drug Abuse Patient Records regulations: The Federal rules restrict any use of the information to criminally investigate or prosecute any alcohol or drug abuse patient.[facility] HospitalIn the event this information is protected by the Federal Confidentiality of Alcohol and Drug Abuse Patient Records regulations: The Federal rules restrict any use of the information to criminally investigate or prosecute any alcohol or drug abuse patient.[facility] HospitalIn the event this information is protected by the Federal Confidentiality of Alcohol and Drug Abuse Patient Records regulations: The Federal rules restrict any use of the information to criminally investigate or prosecute any alcohol or drug abuse patient.[facility] HospitalIn the event this information is protected by the Federal Confidentiality of Alcohol and Drug Abuse Patient Records regulations: The Federal rules restrict any use of the information to criminally investigate or prosecute any alcohol or drug abuse patient.[facility] HospitalIn the event this information is protected by the Federal Confidentiality of Alcohol and Drug Abuse Patient Records regulations: The Federal rules restrict any use of the information to criminally investigate or prosecute any alcohol or drug abuse patient.[facility] HospitalIn the event this information is protected by the Federal Confidentiality of Alcohol and Drug Abuse Patient Records regulations: The Federal rules restrict any use of the information to criminally investigate or prosecute any alcohol or drug abuse patient.[facility] HospitalIn the event this information is protected by the Federal Confidentiality of Alcohol and Drug Abuse Patient Records regulations: The Federal rules restrict any use of the information to criminally investigate or prosecute any alcohol or drug abuse patient.[facility] HospitalIn the event this information is protected by the Federal Confidentiality of Alcohol and Drug Abuse Patient Records regulations: The Federal rules restrict any use of the information to criminally investigate or prosecute any alcohol or drug abuse patient.[facility] HospitalIn the event this information is protected by the Federal Confidentiality of Alcohol and Drug Abuse Patient Records regulations: The Federal rules restrict any use of the information to criminally investigate or prosecute any alcohol or drug abuse patient.[facility]In the event this information is protected by the Federal Confidentiality of Alcohol and Drug Abuse Patient Records regulations: The Federal rules restrict any use of the information to criminally investigate or prosecute any alcohol or drug abuse patient.[facility] HospitalIn the event this information is protected by the Federal Confidentiality of Alcohol and Drug Abuse Patient Records regulations: The Federal rules restrict any use of the information to criminally investigate or prosecute any alcohol or drug abuse patient.[facility] HospitalIn the event this information is protected by the Federal Confidentiality of Alcohol and Drug Abuse Patient Records regulations: The Federal rules restrict any use of the information to criminally investigate or prosecute any alcohol or drug abuse patient.[facility] HospitalIn the event this information is protected by the Federal Confidentiality of Alcohol and Drug Abuse Patient Records regulations: The Federal rules restrict any use of the information to criminally investigate or prosecute any alcohol or drug abuse patient.[facility] HospitalIn the event this information is protected by the Federal Confidentiality of Alcohol and Drug Abuse Patient Records regulations: The Federal rules restrict any use of the information to criminally investigate or prosecute any alcohol or drug abuse patient.[facility] HospitalIn the event this information is protected by the Federal Confidentiality of Alcohol and Drug Abuse Patient Records regulations: The Federal rules restrict any use of the information to criminally investigate or prosecute any alcohol or drug abuse patient.[facility] Reason for Visit (unrecogniz ed section and content) Reason Onset Date Comments Refill Request 01/11/2022 Reason Onset Date Comments Refill Request 12/20/2021 Reason Onset Date Comments Refill Request 02/05/2022 Reason Onset Date Comments Transition Of Care 03/21/2022 TCM initial o utreach discharge 03/20/2022 Reason Comments Medication Follow-up Reason Comments Release Of Medical Records Reason Onset Date Comments Refill Request 04/25/2022 Reason Comments Ulcerative Colitis EGD 05/04/22 CT/ER/la bs 03/18/22 Reason Comments Refill Request Reason Comments Follow Up Reason Comments Patient Update Reason Comments Rash Back of R leg x3 day s Reason Comments Results Reason Comments Chest Congestion Pt reported S OB, co ugh +flu exposure. Reason Comments express care - follow up rash on leg Reason Comments Results Patient Update Reason Comments Musculoskeletal Problem Reason Onset Date Comments Medicare Wellness Exam Immunizations 12/14/2022 Flu vaccination Reason Onset Date Comments Allied Health Visit 01/24/2023 Medication A dherence Outreach Reason Onset Date Comments Refill Request 03/14/2023 Reason Comments F/U 6 Month Reason Comments Rash Started on R hand, n ow moved up arm to shoulder x2 weeks Reason Onset Date Comments Refill Request 05/14/2023 Reason Comments 1 month follow up Reason Onset Date Comments Refill Request 06/05/2023 Reason Onset Date Comments Refill Request 07/12/2023 Reason Comments F/U 3 Month Reason Comments Spirometry Specialty Diagnoses / Procedures Referred By Slime t Referred To Contact [facility] Diagnoses Short of breath on exertion Tobacco use disorder Procedures LUNG VOLUMES Older, Precious, 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 PITTER [address] [place] [address] Respiratory Ivins [address] [place] [address] Referral ID Status Reason Start Date Expiration Date V isits Requested Visits Authorized [id number] Closed Auto-Generate d Referral 07/22/2023 10/13/2023 1 1 Specialty Diagnoses / Procedures Referred By Slime t Referred To [facility] Diagnoses Short of breath on exertion Tobacco use disorder Procedures SPIROMETRY - BASELINE AND POST DILATOR BRNCDILAT RSPSE SPMTRY PRE&POST-BRNCDILAT ADMN Older, Precious, 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 [address] [place] [address] Res[facility] [address] [place] [address] Referral ID Status Reason Start Date Expiration Date V isits Requested Visits Authorized [id number] Closed Auto-Generate d Referral 07/19/2023 08/17/2024 1 1 Specialty Diagnoses / Procedures Referred By Contac t Referred To Contact [facility] Diagnoses Short of breath on exertion Tobacco use disorder Procedures LUNG DIFFUSION CAPACITY (DLCO) DIFFUSING CAPACITY Older, Precious, 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 PITTER [address] [place] [address] Res[facility] [address] [place] [address] Referral ID Status Reason Start Date Expiration Date V isits Requested Visits Authorized [id number] Closed Auto-Generate d Referral 07/19/2023 08/17/2024 1 1 Reason Comments Shortness of Breath Reason Comments Orders Bean Snapper - Other Reason Onset Date Comments Allied Health Visit 09/12/2023 Medication A dherence Outreach Reason Comments Oxygen Reason Onset Date Comments Allied Health Visit 09/20/2023 Medication A dherence Outreach Reason Onset Date Comments Refill Request 12/19/2023 Reason Comments 3 week follow up Blood pressure Reason Comments Follow Up Blood pressure Reason Comments 4 week follow up - blood pressure Reason Onset Date Comments Population Health Navigation Outreach 04/10/2024 Med adherence Reason Onset Date Comments Medicare Wellness Exam Immunizations 07/16/2024 Flu vaccination Reason Onset Date Comments ACM SUSHANT RN 07/28/2024 ER outreach f /u Reason Comments ED Follow-up Care Teams (unrecognized sec tion and content) Print Traffic Manager Relationship Specialty Start Date End Date Talon Bolaños MD [address] [place], [place] [id number] PCP - General Internal Medicine 10/24/16 Jean Carlos Lorenz, DO [address] [place] [address] NI Referring Team Emergency Medicine 09/13/20 Print Traffic Manager Relationship Specialty Start Date End Date Talon Bolaños MD [address] [facility] [place] [address] PCP - General Internal Medicine 10/24/16 Jean Carlos Lorenz, DO [address] [place] [address] NI Referring Team Emergency Medicine 09/13/20 Print Traffic Manager Relationship Specialty Start Date End Date Talon Bolaños MD [address] [facility] [place] [address] PCP - General Internal Medicine 10/24/16 Jean Carlos Lorenz, DO [address] [place] [address] NI Referring Team Emergency Medicine 09/13/20 Print Traffic Manager Relationship Specialty Start Date End Date Talon Bolaños MD [address] [facility] [place] [address] PCP - General Internal Medicine 10/24/16 Jean Carlos Lorenz, DO [address] [place] [address] NI Referring Team Emergency Medicine 09/13/20 Print Traffic Manager Relationship Specialty Start Date End Date Talon Bolaños MD [address] [facility] [place] [address] PCP - General Internal Medicine 10/24/16 Jean Carlos Lorenz, DO [address] [place] [address] NI Referring Team Emergency Medicine 09/13/20 Print Traffic Manager Relationship Specialty Start Date End Date Talon Bolaños MD [address] [facility] [place] [address] PCP - General Internal Medicine 10/24/16 Jean Carlos Lorenz, DO [address] [place] [address] NI Referring Team Emergency Medicine 09/13/20 Print Traffic Manager Relationship Specialty Start Date End Date Talon Bolaños MD [address] [facility] [place] [address] PCP - General Internal Medicine 10/24/16 Jean Carlos Lorenz, DO [address] [place] [address] NI Referring Team Emergency Medicine 09/13/20 Print Traffic Manager Relationship Specialty Start Date End Date Talon Bolaños MD [address] [facility] [place] [address] PCP - General Internal Medicine 10/24/16 Jean Carlos Lorenz, DO [address] [place] [address] NI Referring Team Emergency Medicine 09/13/20 Print Traffic Manager Relationship Specialty Start Date End Date Talon Bolaños MD [address] [facility] [place] [address] PCP - General Internal Medicine 10/24/16 Jean Carlos Lorenz, DO [address] [place] [address] NI Referring Team Emergency Medicine 09/13/20 Print Traffic Manager Relationship Specialty Start Date End Date Talon Bolaños MD [address] [facility] [place] [address] PCP - General Internal Medicine 10/24/16 Jean Carlos Lorenz, DO [address] [place] [address] NI Referring Team Emergency Medicine 09/13/20 Print Traffic Manager Relationship Specialty Start Date End Date Talon Bolaños MD [address] [facility] [place] [address] PCP - General Internal Medicine 10/24/16 Jean Carlos Lorenz, DO [address] [place] [address] NI Referring Team Emergency Medicine 09/13/20 Print Traffic Manager Relationship Specialty Start Date End Date Talon Bolaños MD [address] [facility] [place] [address] PCP - General Internal Medicine 10/24/16 Jean Carlos Lorenz, DO [address] [place] [address] NI Referring Team Emergency Medicine 09/13/20 Print Traffic Manager Relationship Specialty Start Date End Date Talon Bolaños MD [address] [facility] [place] [address] PCP - General Internal Medicine 10/24/16 Jena Carlos Lorenz DO [address] [place] [address] [place] [address] NI Referring Team Emergency Medicine 09/13/20 Print Traffic Manager Relationship Specialty Start Date End Date Talon Bolaños MD [address] [facility] [place] [address] PCP - General Internal Medicine 10/24/16 Jean Carlos Lorenz, [address] [place] [address] NI Referring Team Emergency Medicine 09/13/20 Print Traffic Manager Relationship Specialty Start Date End Date Talon Bolaños MD [address] [facility] [place] [address] PCP - General Internal Medicine 10/24/16 Jean Carlos Lorenz DO [address] [place] [address] NI Referring Team Emergency Medicine 09/13/20 Print Traffic Manager Relationship Specialty Start Date End Date Talon Bolaños MD [address] [facility] [place] [address] PCP - General Internal Medicine 10/24/16 Jean Carlos Lorenz DO [address] [place] [address] [place] [address] NI Referring Team Emergency Medicine 09/13/20 Print Traffic Manager Relationship Specialty Start Date End Date Talon Bolaños MD [address] [facility], [place] [address] PCP - General Internal Medicine 10/24/16 Jean Carlos Lorenz, [address] [place] [address] NI Referring Team Emergency Medicine 09/13/20 Print Traffic Manager Relationship Specialty Start Date End Date Talon Bolaños MD [address] [place] [address] PCP - General Internal Medicine 10/24/16 Jean Carlos Lorenz, [address] [place] [address] NI Referring Team Emergency Medicine 09/13/20 Print Traffic Manager Relationship Specialty Start Date End Date Talon Bolaños MD [address] [place] [address] PCP - General Internal Medicine 10/24/16 Jean Carlos Lorenz, [address] [place] [address] NI Referring Team Emergency Medicine 09/13/20 Print Traffic Manager Relationship Specialty Start Date End Date Talon Bolaños MD [address] [place] [address] PCP - General Internal Medicine 10/24/16 Jean Carlos Lorenz DO [address] [place] [address] NI Referring Team Emergency Medicine 09/13/20 Print Traffic Manager Relationship Specialty Start Date End Date Talon Bolaños MD [address] [place] [address] PCP - General Internal Medicine 10/24/16 Jean Carlos Lorenz DO [address] [place] [address] NI Referring Team Emergency Medicine 09/13/20 Print Traffic Manager Relationship Specialty Start Date End Date Talon Bolaños MD [address] [place] [address] PCP - General Internal Medicine 10/24/16 Jean Carlos Lorenz, [address] [place] [address] NI Referring Team Emergency Medicine 09/13/20 Print Traffic Manager Relationship Specialty Start Date End Date Talon Bolaños MD [address] [place] [address] PCP - General Internal Medicine 10/24/16 Jean Carlos Lorenz, [address] [place] [address] 274[address] NI Referring Team Emergency Medicine 09/13/20 Print Traffic Manager Relationship Specialty Start Date End Date Talon Bolaños MD [address] [place] [address] PCP - General Internal Medicine 10/24/16 Jean Carlos Lorenz DO [address] [place] [address] NI Referring Team Emergency Medicine 09/13/20 Print Traffic Manager Relationship Specialty Start Date End Date Talon Bolaños MD [address] [place] [address] PCP - General Internal Medicine 10/24/16 Jean Carlos Lorenz DO [address] [place] [address] NI Referring Team Emergency Medicine 09/13/20 Print Traffic Manager Relationship Specialty Start Date End Date Talon Bolaños MD [address] [place] [address] PCP - General Internal Medicine 10/24/16 Jean Carlos Lorenz, [address] [place] [address] NI Referring Team Emergency Medicine 09/13/20 Print Traffic Manager Relationship Specialty Start Date End Date Talon Bolaños MD [address] [place] [address] PCP - General Internal Medicine 10/24/16 Jean Carlos Lorenz, [address] [place] [address] NI Referring Team Emergency Medicine 09/13/20 Print Traffic Manager Relationship Specialty Start Date End Date Talon Bolaños MD [address] [place] [address] PCP - General Internal Medicine 10/24/16 Jean Carlos Lorenz DO [address] [place] [address] NI Referring Team Emergency Medicine 09/13/20 Print Traffic Manager Relationship Specialty Start Date End Date Talon Bolaños MD [address] [place] [address] PCP - General Internal Medicine 10/24/16 Jean Carlos Lorenz DO [address] [place] [address] NI Referring Team Emergency Medicine 09/13/20 Print Traffic Manager Relationship Specialty Start Date End Date Talon Bolaños MD [address] [place] [address] PCP - General Internal Medicine 10/24/16 Jean Carlos Lorenz DO [address] [place] [address] NI Referring Team Emergency Medicine 09/13/20 Print Traffic Manager Relationship Specialty Start Date End Date Talon Bolaños MD [address] [facility] [place] [address] PCP - General Internal Medicine 10/24/16 Jean Carlos Lorenz, [address] [place] [address] NI Referring Team Emergency Medicine 09/13/20 Print Traffic Manager Relationship Specialty Start Date End Date Talon Bolaños MD [address] [facility] [place] [address] PCP - General Internal Medicine 10/24/16 Jean Carlos Lorenz, [address] [place] [address] NI Referring Team Emergency Medicine 09/13/20 Print Traffic Manager Relationship Specialty Start Date End Date Talon Bolaños MD [address] [facility] [place] [address] PCP - General Internal Medicine 10/24/16 Jean Carlos Lorenz, [address] [place] [address] 239[address] NI Referring Team Emergency Medicine 09/13/20 Print Traffic Manager Relationship Specialty Start Date End Date Talon Bolaños MD [address] [facility] [place] [address] PCP - General Internal Medicine 10/24/16 Jean Carlos Lorenz, [address] [facility] [place] [address] NI Referring Team Emergency Medicine 09/13/20 Print Traffic Manager Relationship Specialty Start Date End Date Talon Bolaños MD [address] [facility] [place] [address] PCP - General Internal Medicine 10/24/16 Jean Carlos Lorenz DO [address] [place] [address] NI Referring Team Emergency Medicine 09/13/20 Print Traffic Manager Relationship Specialty Start Date End Date Talon Bolaños MD [address] [place] [address] PCP - General Internal Medicine 10/24/16 Jean Carlos Lorenz DO [address] [place] [address] NI Referring Team Emergency Medicine 09/13/20 Print Traffic Manager Relationship Specialty Start Date End Date Talon Bolaños MD [address] [place] [address] PCP - General Internal Medicine 10/24/16 Jean Carlos Lorenz DO [address] [place] [address] NI Referring Team Emergency Medicine 09/13/20 FOR RECORDS PERTAINING TO PATIENTS WHO ARE OR HAVE BEEN ENROLLED IN A CHEMICAL DEPENDENCY/SUBSTANCEABUSE PROGRAM, SOME INFORMATION MAY BE OMITTED. This clinical summary was aggregated from multiple sources. Caution should be exercised in using it in the provision of clinical care. This summary normalizes information from multiple sources, and as a consequence, information in this document may materially change the coding, format and clinical context of patient data. In addition, data may be omitted in some cases. CLINICAL DECISIONS SHOULD BE BASED ON THE PRIMARY CLINICAL RECORDS. [facility]. provides no warranty or guarantee of the accuracy or completeness of information in this document.
== END | disposition home or self-care (01) ==
LOC: MRI 06:37
PROVIDERS: PCP Internal Medicine; Referring Provider Anesthesiology; Visit Provider Anesthesiology
DX: M47.816 Spondylosis without myelopathy or radiculopathy, lumbar region (principal)
CPT/HCPCS: 72148

== ENCOUNTER 2024-09-23 14:30 | Outpatient (RCR) | payer MEDICARE, SELFPAY ==
--- NOTE | 2024-08-24 13:28 | HP.PTEVAL_ITS ---
Patient's Visit Information Visit Information Visit Information: TYE VAZQUEZ is a 84 year old M referred to Physical Therapy by Dr. Lorne Tyson MD with a diagnosis of LUMBAR RADICULOPATHY. Date of Evaluation: 08/24/24 Physical Therapist: Shawn Harley, PT, Cert MDT, OCS Visit Plan Frequency: 2x /Week Duration: 4 Weeks Plan: PT INTERVENTIONS LUMBAR FLEXION ,LE FLEXABILITY , BLE STRENGTHENING , DLS AND POSTURAL EX'S Subjective Subjective: This 84 y/o male presents to physical therapy with lumbar radiculopathy. Patient has had lumbar radicular symptoms several years. Patient symptoms progressively worse . Seen MRI showed stenosis and DDD . Prescribed medication pain. Patient has PVD on legs and had vascular surgery 2 years ago. P ain mainly in calves and symmetrical lumbar. Aggravating standing worse , walking , bending unable to lift . Patient uses walker at home 50% of the time. Alleviating factors sitting/rest. Coughing/sneezing-. Bowel/bladder -.Pain affects sleeping . Patient has had chiropractor treatment .Seen pain management want to do injections so wanted PT. 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 Patient condition affects QOL and function. Patient goals to decrease pain, SOCIAL:SINGLE VOCATION: RETIRED Pain Bilateral Lower Extremity: Pain Intensity (Out of 10): 6 Pain Intensity Range: 10 Bilateral Back: Pain Intensity (Out of 10): 7 Pain Intensity Range: 10 Objective Objective: POSTURE: mild forward posture hips/knee slightly flexed GAIT: ambulates with mild forward posture slow gigi decrease step length NEURO: denies paresthesia/tingling ,reflexes L3-4,L4-5 ,L5-S1 1/3 PALAPTION: tender LS LUMBAR ROM: flexion mod loss ,extension severe loss ,side glides mod loss FLEXABLITY: hamstring mod tight MMT: ( peak force) quads right 11.2,lefdt 19.2,hamstrings 12.2 right ,left 14.2 ,hip flexion right 16.5 ,left 19.8 Special Tests L/S Slump test left side: Negative L/S Slump test right side: Negative L/S Left Straight Leg Raise: Negative L/S Right Straight Leg Raise: Negative Balance/Special Test Scores Oswestry Low Back Score: 31 Goals Goal 1:: Patient to be I with HPE for back Goal Time Frame: 4-6 Weeks Goal 2:: Patient to improve lumbar ROM for function of recovery to put on shoes Goal Time Frame: 4-6 Weeks Goal 3:: Patient to improve back oswestry score by 5 points to improve QOL and function Goal Time Frame: 4-6 Weeks Goal 4:: Patient to demonstrate 40 % improvement with less pain and improved function Goal Time Frame: 4-6 Weeks Goal 5:: Patient to improve peak force of hips/quads/hams by 5-10# to improve function Goal Time Frame: 4-6 Weeks Rehabilitation Potential Physical Therapy Diagnosis: This patient has lumbar radiculopathy with pain worse with walking/standing better with sitting MRI showed mod/severe stenosis thus benefit from skilled PT Rehabilitation Potential: Good Anticipated Interventions Patient/Client Instruction: Educate patient on: Condition and Plan of Care For the Purpose of:: To decrease pain, To increase ROM, To improve muscle performance and motor function, To improve ability to perform ADL's, To increase tolerance to activity/condition/position, To improve performance and independence with ADL's, To improve ability of physical actions for home/community/work/leisure, To improve gait and locomotor functions, To improve health of tissue, To decrease soft tissue restriction, To increase flexibility/ROM and To improve tolerance to ADL's Therapeutic Exercise to Include: Strength training, Postural training, Flexibilty training and Dynamic Lumbar Stabilization Comment: QUADS/HAMS/HIP For the Purpose of:: To decrease pain, To increase ROM, To improve muscle performance and motor function, To improve ability to perform ADL's, To increase tolerance to activity/condition/position, To improve performance and inde pendence with ADL's, To improve ability of physical actions for home/community/work/leisure, To improve health of tissue, To decrease soft tissue restriction, To increase flexibility/ROM and To improve tolerance to ADL's TENS: Yes IF ES: Yes Cryotherapy (ice pack, ice massage): Yes Thermo therapy (hot pack): Yes Ultrasound (thermal/non thermal): Yes For the Purpose of:: To increase ROM, To improve nutrient delivery to tissue, To increase oxygenation perfusion, To improve health of tissue and To decrease soft tissue restriction Text: Thank you for the opportunity to evaluate your patient. For Medicare and Medicare HMO plans, please review the plan of care and approve it. It will need to be FAXED BACK to us at [phone] for Medicare purposes. For Medicare only, by signing this I certify the plan of care. Please let me know if there are questions or concerns regarding this plan of care. Physician Signature: Date:
--- NOTE | 2024-09-23 14:57 | HP.PTDCNRP_ITS ---
Patient Information Patient Information: TYE VAZQUEZ was seen in my office for initial evaluation on 08/24/24. The following Plan of Care was established for this patient: POC Established Initial Frequency: 2x /Week Initial Duration: 4 Weeks Anticipated Interventions Patient/Client Instruction: Educate patient on: Condition and Plan of Care For the Purpose of:: To decrease pain, To increase ROM, To improve muscle performance and motor function, To improve ability to perform ADL's, To increase tolerance to activity/condition/position, To improve performance and in dependence with ADL's, To improve ability of physical actions for home/community/work/leisure, To improve gait and locomotor functions, To improve health of tissue, To decrease soft tissue restriction, To increase flexibility/ROM and To improve tolerance to ADL's Therapeutic Exercise to Include: Strength training, Postural training, Flexibilty training and Dynamic Lumbar Stabilization For the Purpose of:: To decrease pain, To increase ROM, To improve muscle performance and motor function, To improve ability to perform ADL's, To increase tolerance to activity/condition/position, To improve performance and independence with ADL's, To improve ability of physical actions for home/community/work/leisure, To improve health of tissue, To decrease soft tissue restriction, To increase flexibility/ROM and To improve tolerance to ADL's TENS: Yes IF ES: Yes Cryotherapy (ice pack, ice massage): Yes Thermo therapy (hot pack): Yes Ultrasound (thermal/non thermal): Yes For the Purpose of:: To increase ROM, To improve nutrient delivery to tissue, To increase oxygenation perfusion, To improve health of tissue and To decrease soft tissue restriction Last Seen Last Seen: This patient was last seen in our office . Pertinent comments regarding their Physical therapy will appear below: At this point I will be discontinuing this patient from physical therapy. I would be happy to see this patient again in the future if found appropriate by the physician. Thank you! Shawn Harley, PT, Cert MDT, OCS Balance/Gait/Functional tests Balance/Special Test Scores Oswestry Low Back Score: 31
== END 2024-09-23 19:00 | disposition home or self-care (01) ==
LOC: PT 14:30
PROVIDERS: PCP Internal Medicine; Referring Provider Anesthesiology; Visit Provider Anesthesiology
DX: M54.17 Radiculopathy, lumbosacral region (principal)
CPT/HCPCS: 97110; 97162; 97530

== ENCOUNTER 2025-03-11 12:51 | Emergency (ER) | payer MEDICARE, SELFPAY ==
[2025-03-11 12:51] VITALS: BP 152/65; PULSE 61; RESP 14; TEMP 36.2; O2SAT 98
--- NOTE | 2025-03-11 14:11 | CT_ITS ---
PROCEDURE: SPINE LUMBAR WITHOUT CONTRAST 03/11/2025 REASON FOR EXAM: PARESTHESIAS History of prostate cancer. Numbness and pain in both lower extremities. TECHNIQUE: Lumbar spine CT without contrast. Coronal and Sagittal reconstruction series were provided. One or more dose reduction techniques were used (e.g., Automated exposure control, adjustment of the mA and/or kV according to patient size, use of iterative reconstruction technique COMPARISON: None RADIATION DOSE SUMMARY: CTDlvol: 13.82 mGy DLP: 432.55 mGycm FINDINGS: Vertebrae: Multilevel spondylosis. Alignment: Moderate degree of dextro convex scoliosis. L1-2: Marked degree of disc space narrowing. Spondylosis. No significant stenosis. L2-3: Marked degree of disc space narrowing and disc degeneration. Spondylosis. Mild degree of left neural foraminal stenosis. L3-4: Marked degree of disc space narrowing and disc degeneration as well as spondylosis. Facet joint osteoarthritis and hypertrophy. No significant stenosis seen. L4-5: Marked degree of disc space narrowing and disc degeneration and spondylosis. Facet joint osteoarthritis and hypertrophy. Mild bilateral neural foraminal stenosis. L5-S1: Marked degree of disc space narrowing. Spondylosis. Facet joint osteoarthritis and hypertrophy. Sacrum: Unremarkable CT/Spine Lumbar without Contrast IMPRESSION: LUMBAR DEGENERATIVE DISC AND FACET DISEASE. Dextroconvex scoliosis. Reading Location: [id number]
[2025-03-11 14:40] LABS: Absolute Lymphocyte Count 1.12 X10^3/uL (0.83-4.51); Basophil# 0.02 X10^3/uL; Basophil% 0.3 % (0-1); Eosinophil# 0.08 X10^3/uL; Eosinophils% 1.2 % (0-5); Hematocrit 40.8 % (40-54); Hemoglobin 14.6 g/dL (13.0-16.5); Lymphocyte # 1.12 X10^3/ul (0.83-4.51); Lymphocyte % 16.4 % (19-41); Mean Corp Hgb Conc 35.8 g/dL (32-36); Mean Corpuscular Hgb 35.2 pg (27.0-32.0); Mean Corpuscular Volume 98.3 fL (80-94); Mean Platelet Vol. 10.7 fl (6.2-12.0); Monocyte# 0.55 X10^3/uL; Monocyte% 8.1 % (0-10); NRBC Flagged by Analyzer 0 % (0-5); Neutrophil # 5.02 X10^3/uL (2.7-7.7); Neutrophil % 73.6 % (47-70); Platelet Count 173 K/mm3 (150-450); RBC Distribution Width CV 12.8 % (11.6-14.6); RBC Distribution Width SD 46.5 fl (35.1-43.9); Red Blood Count 4.15 M/mm3 (4.6-6.2); White Blood Count 6.8 K/mm3 (4.4-11.0)
[2025-03-11 14:51] VITALS: BP 156/56; PULSE 75; RESP 15; O2SAT 95
[2025-03-11 14:55] LABS: Bacteria 0 SEEN /hpf (None Seen); Mucous, Urine 0 SEEN /hpf (<or=2+); White Blood Cells 0 SEEN /hpf (0-5)
[2025-03-11 15:00] LABS: Color, Urine Yellow (Yellow); Glucose, Dipstick Normal (Normal); Ketone-Dipstick Negative (Negative); Leukocyte Esterase-Dipstick Negative /ul (Negative); Nitrite-Dipstick Negative (Negative); Occult Blood-Urine Negative /ul (Negative); Protein-Dipstick 15 mg/dl (Negative); Urine Bilirubin Dipstick Negative (Negative); Urine Clarity Clear (Clear); Urine Urobilinogen Normal (Normal)
[2025-03-11 15:08] LABS: Red Blood Cells-Urine 0-5 SEEN /hpf (0-5); Squamous Epithelial Cells - UA 0-5 SEEN /hpf (0-5)
[2025-03-11 15:21] LABS: Anion Gap 13 (5-15); BUN 23 mg/dL (4-19); BUN/Creat Ratio 17.3 RATIO (10-20); Calcium,Total 9.1 mg/dL (7.6-11.0); Carbon Dioxide 23.7 mmol/L (21.0-32.0); Chloride 100 mmol/L (98-108); Creatinine, Serum 1.31 mg/dL (0.70-1.20); EST Glomerular Filtration Rate 53 (>60); Glucose 86 mg/dL (70-99); Magnesium 1.4 mg/dL (1.5-2.2); Sodium Level 137 mmol/L (133-145)
--- NOTE | 2025-03-11 15:34 | EX.ED.DYSGE1 ---
HPI History of Present Illness Chief Complaint: Lower Extremity Injury Narrative Narrative: Chief complaint and HPI: 85-year-old male with past medical history of COPD, sciatica, lumbar scoliosis with radiculopathy, PAD, peripheral neuropathy presents for evaluation of numbness/tingling down the bilateral legs. Patient states that at baseline he has paresthesias in his bilateral feet in which he takes gabapentin. Has a history of chronic back pain with radiculopathy. States that over the past 4 weeks he has had increase in his radiculopathy down his bilateral lower extremities. He states that he has seen pain management and Dr. Zavala for this in the office. Was considered a poor surgical candidate. Denies any back pain at this time. Denies any fever, chills, shortness of breath, chest pain abdominal pain, nausea, vomiting, dysuria. Denies any trauma or falls. Denies weakness, urinary retention, stool or urinary incontinence, saddle anesthesia, recent invasive manipulation of the spine, or focal neurological deficit. States he called his PCPs office and they referred him to the emergency department. Review of systems: See HPI Medications: As listed on the chart Allergies: As listed on the chart PFSH: Per chart Vital signs: As listed on the chart. Reviewed. Physical exam: Gen: A&O x3, NAD Head: Normocephalic, atraumatic Eyes: No sclera icterus, conjunctiva clear, PERRL ENT: Moist mucous membranes Neck: Trachea midline, No JVD, nontender, full range of motion CV: RRR, no murmurs, no peripheral edema Resp: Lungs CTA BL, no w/r/c GI: Abd soft, non-distended, non-tender, no r/r/g Musc: Full ROM, no deformity, no midline spinal tenderness, no bony [id number] signs of cellulitis or infection, strength +5/5 in all extremity, DP/PT pulses +2 bilaterally, no saddle paresthesias, sensation intact despite him endorsing paresthesias Skin: Warm, dry Neuro: Alert, oriented, grossly intact Psych: Cooperative, appropriate mood and affect [facility] Medical History (Updated 03/11/25 @ 15:[address] Nam Strange, ) COPD (chronic obstructive pulmonary disease) Hypercholesteremia Brain hematoma (~2019) History of prostate cancer GERD (gastroesophageal reflux disease) IBS (irritable bowel syndrome) Hypertension Arthritis Home Medications ?Medication ?Instructions ?Recorded ?Last Taken ?Type amlodipine 10 mg tablet 10 mg PO DAILY HTN 05/13/17 01/20/18 History 10 MG atorvastatin 10 mg tablet 10 mg PO QHS CHOLESTEROL 05/13/17 05/13/17 History lisinopril 20 mg tablet 40 mg PO QHS HTN 05/13/17 01/20/18 History 20 MG metoprolol tartrate 50 mg tablet 50 mg PO BID #60 tabs 05/14/17 01/19/18 Rx 50 MG acetaminophen 325 mg capsule 650 mg PO Q4H PRN PRN PAIN/FEVER 11/03/20 Unknown History gabapentin 600 mg tablet 600 mg PO QHS 11/03/20 Unknown History aspirin 81 mg tablet,delayed 81 mg PO QDAY 06/26/24 Unknown History release magnesium oxide 500 mg capsule 500 mg PO DAILY 3 days #3 caps 03/11/25 Unknown Rx potassium chloride 20 mEq 40 meq (2 x 20 mEq) PO DAILY 3 03/11/25 Unknown Rx tablet,extended release (K-Tab) days #6 tabs Allergy/AdvReac Type Severity Reaction Status Date / Time No Known Allergies Allergy Verified 03/11/25 12:52 Family History Other Arthritis Cancer Hypertension Myocardial infarction Surgical History History of hernia repair Hx of rotator cuff surgery (~2018) Social History Smoking Status: Current every day smoker tobacco type: cigarettes alcohol intake: never substance use type: does not use what type of physical activity do you participate in: none EXAM Physical Exam Const Vital Signs: 03/11/25 12:51 03/11/25 14:51 03/11/25 16:17 Temperature 97.1 F L 97.8 F Temperature Source Temporal Pulse Rate 61 75 62 Respiratory Rate 14 15 15 Blood Pressure 152/65 H 156/56 H 147/62 H Blood Pressure Mean 94 89 90 Pulse Ox 98 95 97 Oxygen Delivery Method Room Air Room Air MDM MDM MDM Narrative Medical decision making narrative: 85-year-old male with past medical history of COPD, sciatica, lumbar scoliosis with radiculopathy, PAD, peripheral neuropathy presents for evaluation of numbness/tingling down the bilateral legs. Onset of symptoms 4 weeks. Denies any associated back pain or neurological deficit otherwise. Denies any infectious symptoms. On chart review, patient saw orthopedics in the office in December. He had an MRI of the lumbar/spine performed in July 2024. Showed pronounced stenosis and other chronic changes. No findings to suggest acute cauda equina syndrome or infectious etiology therefore MRI not warranted. I suspect his symptoms are secondary to worsening radiculopathy however will obtain CT of the lumbar spine to assess for occult fracture or other acute pathology. Will obtain basic labs to assess for electrolyte abnormality as well as UA for UTI. CBC without leukocytosis or anemia. BMP shows hypokalemia with a potassium of 3. On chart review, patient has chronic hyponatremia his baseline appears to be about 3. Not on potassium replacement. He has renal insufficiency with a creatinine of 1.31. My last labs are from 2023. I suspect that this is chronic and not acute. He has hypomagnesemia with a magnesium level of 1.4. UA negative for UTI. P.o. potassium and magnesium ordered. CT of the lumbar spine shows lumbar degenerative disc and facet disease. Scoliosis. No acute fracture. I suspect patient's bilateral paresthesias are secondary to worsening lumbar radiculopathy. He is not having any back pain to require further imaging or steroids. Recommend following up with Dr. Zavala and PCP. Him and his family member confirmed understanding. I will place him on a 3-day course of potassium and magnesium replacement. Will give prescription to have BMP and a magnesium level repeated in 3 days. He was told that he needs to follow-up with his PCP for this. They were told to call the PCPs office to let them know that he was placed on these and that they need to monitor the labs. They confirmed understanding the plan. Return precautions explained. Patient stable to discharge home. Impression: 1. Bilateral lower extremity paresthesias 2. History of scoliosis with radiculopathy and degenerative disc disease of the lumbar spine 3. Chronic hypokalemia 4. Hypomagnesemia 5. Renal insufficiency Lab Data Labs: Laboratory Results - last 24 hr 03/11/25 03/11/25 14:20 14:52 WBC 6.8 RBC 4.15 L Hgb 14.6 Hct 40.8 MCV 98.3 H MCH 35.2 H MCHC 35.8 RDW Std Deviation 46.5 H RDW Coeff of Sean 12.8 Plt Count 173 MPV 10.7 Immature Gran % (Auto) 0.400 Neut % (Auto) 73.6 H Lymph % (Auto) 16.4 L [place] % (Auto) 8.1 Eos % (Auto) 1.2 Baso % (Auto) 0.3 Absolute Neuts (auto) 5.0 Absolute Lymphs (auto) 1.12 Nucleated RBC % 0 Sodium 137 Potassium 3.0 L Chloride 100 Carbon Dioxide 23.7 Anion Gap 13 BUN 23 H Creatinine 1.31 H Est GFR (MDRD) Non-Af 53 L BUN/Creatinine Ratio 17.3 Glucose 86 Calcium 9.1 Magnesium 1.4 L Urine Color Yellow Urine Clarity Clear Urine pH 6.0 Ur Specific [place] 1.010 Urine Protein 15 H Urine Glucose (UA) Normal Urine Ketones Negative Urine Occult Blood Negative Urine Nitrite Negative Urine Bilirubin Negative Urine Urobilinogen Normal Ur Leukocyte Esterase Negative Urine RBC 0-5 SEEN Urine WBC 0 SEEN Ur Squamous Epith Cells 0-5 SEEN Urine Bacteria 0 SEEN Urine Mucus 0 SEEN Radiography Diagnostic Testing: Clinical Impression(s) from Imaging Studies Lumbar Spine CT 03/11/25 14:11 IMPRESSION: LUMBAR DEGENERATIVE DISC AND FACET DISEASE. Dextroconvex scoliosis. Reading Location: [id number] Discharge Plan Triage Chief Complaint: Lower Extremity Injury ED Provider: Nam Strange Dx/Rx/DC Orders Clinical Impression: Paresthesia of bilateral legs, Chronic hypokalemia, Hypomagnesemia Instructions: ED Paraesthesias Prescriptions: New magnesium oxide 500 mg capsule 500 mg PO DAILY 3 Days Qty: 3 0RF potassium chloride [K-Tab] 20 mEq tablet extended release 40 meq PO DAILY 3 Days Qty: 6 0RF No Action aspirin 81 mg tablet,delayed release (DR/EC) 81 mg PO QDAY atorvastatin 10 MG tablet 10 mg PO QHS lisinopril 20 MG tablet 40 mg PO QHS Patient Comments: amlodipine 10 MG tablet 10 mg PO DAILY Patient Comments: metoprolol tartrate 50 MG tablet 50 mg PO BID Qty: 60 0RF gabapentin 600 MG tablet 600 mg PO QHS acetaminophen 325 MG capsule 650 mg PO Q4H PRN PRN (Reason: PAIN/FEVER) Other Ambulatory Orders: Basic Metabolic Profile (BMP) (Routine) Timeframe: 3 Days Facility: [facility] - Location: Laboratory Ordered By: Dr. Nam Strange Magnesium (Routine) Timeframe: 3 Days Facility: [facility] - Location: Laboratory Ordered By: Dr. Nam Strange Primary Care Provider: Precious Maldonado NP Referrals: Precious Maldonado NP, TELECASTING TECHNICIAN-C [Primary Care Provider] - 3-5 Days Activity Restrictions/Additional Instructions: Follow-up with primary care physician. Call soon as possible to make a follow-up appointment. Your potassium and magnesium were mildly low here in the emergency department. Please take the replacement as prescribed. You need to have your labs repeated in 3 days. Return back to the ED if symptoms change or worsen. Let your primary care physician know that your labs were low and that we have made changes. Print Language: Croatian Disposition Disposition: Home, Self Care Discharge Date/Time: 03/11/25 16:18
[2025-03-11] MEDS: Magnesium Chloride 64 MG Delay Rel.Tablet 128 MG PO (16:11)
[2025-03-11] MEDS: Potassium Chloride Oral Soln 20 MEQ/15 ML UDC 40 MEQ PO (16:11)
[2025-03-11 16:17] VITALS: BP 147/62; PULSE 62; RESP 15; TEMP 36.6; O2SAT 97
== END 2025-03-11 16:18 | disposition home or self-care (01) ==
PROVIDERS: Emergency Provider Surgery; PCP Nurse Practitioner; Visit Provider Surgery
DX: R20.2 Paresthesia of skin (principal); E87.6 Hypokalemia; E83.42 Hypomagnesemia; N28.9 Disorder of kidney and ureter, unspecified; M51.16 Intervertebral disc disorders with radiculopathy, lumbar region; M41.26 Other idiopathic scoliosis, lumbar region; I10 Essential (primary) hypertension; E78.00 Pure hypercholesterolemia, unspecified; F17.210 Nicotine dependence, cigarettes, uncomplicated; Z79.82 Long term (current) use of aspirin; Z79.899 Other long term (current) drug therapy
CPT/HCPCS: 72131; 80048; 81001; 83735; 85025; 99285